=== PATIENT | male | born 1950 | race Caucasian/White ===

== ENCOUNTER → 2018-04-19 11:02 | Outpatient (CLI) | payer MEDICARE, SELFPAY ==
--- NOTE | 2018-04-19 11:13 | VDLE_ITS ---
Reason For Study: LEG SWELLING RIGHT LEFT GSV is normal. GSV is normal. CFV is compressible, spontaneous, phasic, CFV is compressible, spontaneous, phasic, competent and demonstrates normal competent, and demonstrates normal augmentation. augmentation. FV is compressible, spontaneous, phasic, FV is compressible, spontaneous, phasic, competent and demonstrates normal competent and demonstrates normal augmentation. augmentation. POP V is compressible, spontaneous, phasic, POP V is compressible, spontaneous, phasic, competent and demonstrates normal competent and demonstrates normal augmentation. augmentation. T/P Trunk is compressible. T/P Trunk is compressible. PTV is compressible. PTV is compressible. RT PerV is compressible. LT PerV is compressible. SFJ is INCOMPETENT SFJ is INCOMPETENT GSV is INCOMPETENT with reflux greater GSV is INCOMPETENT with reflux greater than .5 sec and diameter of .30 x .31 cm than .5 sec and diameter of .47 x .44 cm SSV is competent SSV is INCOMPETENT with reflux greater INCOMPETENT fur remodeler 15 cm prox to medial than .5 sec and diameter of .52 x .58 cm malleolus. INCOMPETENT fur remodeler 21 cm prox to medial malleolus. Interpretation Summary Deep veins of the lower extremities are bilaterally patent and compressible segmentally. There is no evidence of deep vein thrombosis on either side. Valvular competence appears intact within the proximal deep venous systems bilaterally. The greater saphenous veins appear bilaterally patent and compressible segmentally. Sapheno-femoral junctions are bilaterally incompetent . Segmental valvular incompetence is noted within the greater saphenous veins bilaterally. The right small saphenous vein is patent and competent. The left small saphenous vein is patent and incompetent. An incompetent fur remodeler vein is noted in the right calf, located 15 centimeters proximal to the right medial malleolus. An incompetent fur remodeler vein is noted in the left calf, located 21 centimeters proximal to the left medial malleolus. Ordering Physician: NORMA LIZARRAGA Referring Physician: Norma Lizarraga Performed By: Marlen Foley RVT
== END ==
PROVIDERS: Family Provider Family Medicine; PCP Family Medicine; Visit Provider Nurse Practitioner
DX: I83.90 Asymptomatic varicose veins of unspecified lower extremity (principal); R60.0 Localized edema; L03.90 Cellulitis, unspecified; I73.9 Peripheral vascular disease, unspecified
CPT/HCPCS: 93970

== ENCOUNTER → 2019-02-03 21:26 | Outpatient (CLI) | payer MEDICARE, SELFPAY ==
[2019-02-03 17:08] VITALS: BMI 42.1
[2019-02-03 21:44] LABS: Absolute Lymphocyte Count 2.03 X10^3/ul (0.83-4.51); Absolute Neutrophil Count 4.3 X10^3/uL (2.0-7.7); Basophil# 0.04 X10^3/uL; Basophil% 0.6 % (0-1); Eosinophil# 0.17 X10^3/uL; Eosinophils% 2.4 % (0-5); Hematocrit 44.3 % (40-54); Hemoglobin 14.7 g/dl (13.0-16.5); Lymphocyte # 2.03 X10^3/ul (4.0); Lymphocyte % 28.6 % (19-41); Mean Corp Hgb Conc 33.2 g/gl (32-36); Mean Corpuscular Hgb 30.1 pg (27.0-32.0); Mean Corpuscular Volume 90.8 fL (80-94); Mean Platelet Vol. 11.9 fl (6.2-12.0); Monocyte# 0.51 X10^3/uL; Monocyte% 7.2 % (0-10); Neutrophil # 4.33 X10^3/uL (2.7-7.7); Neutrophil % 60.9 % (47-70); Platelet Count 157 K/mm3 (150-450); RBC Distribution Width CV 13.7 % (11.6-14.6); RBC Distribution Width SD 45.2 fl (35.1-43.9); Red Blood Count 4.88 M/mm3 (4.6-6.2); White Blood Count 7.1 K/mm3 (4.4-11.0)
[2019-02-03 21:45] LABS: POSITIVE COUNT NO; POSITIVE DIFFERENTIAL NO
[2019-02-03 21:46] LABS: POSITIVE MORPHOLOGY NO
[2019-02-03 22:09] LABS: ALB/GLOB Ratio 1.3 RATIO (0.9-2.4); AST(SGOT) 17 U/L (15-37); Alanine Aminotransfer ALT/SGPT 20 U/L (16-61); Albumin, Serum 4.1 g/dL (3.2-5.0); Alkaline Phosphatase 99 U/L (45-117); Anion Gap 6 (5-15); BUN 17 mg/dL (7-18); BUN/Creat Ratio 17.6 RATIO (10-20); Calcium,Total 8.9 mg/dL (8.5-10.1); Chloride 107 mmol/L (98-107); Cholesterol 179 mg/dL (200); Creatinine, Serum 0.96 mg/dL (0.70-1.30); EST Glomerular Filtration Rate 83 mL/min (>60); Est Glom Filt Rate - Afr Amer 100 mL/min (>60); Globulin 3.2 g/dL (2.2-4.2); Glucose 95 mg/dL (74-106); High Density Lipoprotein 43 mg/dL; PSA,Total - Annual Screen 4.07 ng/mL (0.00-4.00); Potassium 4.1 mmol/L (3.5-5.1); Protein, Total 7.3 g/dL (6.4-8.2); Sodium Level 139 mmol/L (136-145); Triglycerides 157 mg/dL; Very Low Density Lipoprotein 31 mg/dL (5-40)
== END ==
PROVIDERS: Family Provider Family Medicine; PCP Family Medicine; Referring Provider Nurse Practitioner; Visit Provider Nurse Practitioner
DX: I10 Essential (primary) hypertension (principal); M15.0 Primary generalized (osteo)arthritis; R35.0 Frequency of micturition; Z12.5 Encounter for screening for malignant neoplasm of prostate
CPT/HCPCS: 80053; 80061; 84153; 85025; G0103

== ENCOUNTER → 2020-02-21 22:08 | Outpatient (CLI) | payer MEDICARE, SELFPAY ==
[2020-02-21 18:33] VITALS: BMI 43.7
[2020-02-21 22:26] LABS: Absolute Lymphocyte Count 2.09 X10^3/uL (0.83-4.51); Absolute Neutrophil Count 5.1 X10^3/uL (2.0-7.7); Basophil# 0.05 X10^3/uL; Basophil% 0.6 % (0-1); Eosinophil# 0.17 X10^3/uL; Eosinophils% 2.2 % (0-5); Hematocrit 45.4 % (40-54); Hemoglobin 14.6 g/dL (13.0-16.5); Lymphocyte # 2.09 X10^3/ul (4.0); Mean Corp Hgb Conc 32.2 g/dL (32-36); Mean Corpuscular Hgb 30.9 pg (27.0-32.0); Mean Platelet Vol. 11.8 fl (6.2-12.0); Monocyte# 0.33 X10^3/uL; Monocyte% 4.3 % (0-10); NRBC Flagged by Analyzer 0 % (0-5); Neutrophil # 5.07 X10^3/uL (2.7-7.7); Neutrophil % 65.5 % (47-70); Platelet Count 170 K/mm3 (150-450); RBC Distribution Width CV 13.1 % (11.6-14.6); RBC Distribution Width SD 46.5 fl (35.1-43.9); Red Blood Count 4.73 M/mm3 (4.6-6.2); White Blood Count 7.7 K/mm3 (4.4-11.0)
[2020-02-21 22:46] LABS: ALB/GLOB Ratio 1.1 RATIO (0.9-2.4); AST(SGOT) 22 U/L (15-37); Alanine Aminotransfer ALT/SGPT 27 U/L (16-61); Alkaline Phosphatase 91 U/L (45-117); Anion Gap 6 (5-15); BUN 22 mg/dL (7-18); Calcium,Total 9.4 mg/dL (8.5-10.1); Chloride 108 mmol/L (98-107); Cholesterol 210 mg/dL (200); EST Glomerular Filtration Rate 79 mL/min (>60); Est Glom Filt Rate - Afr Amer 96 mL/min (>60); Globulin 3.7 g/dL (2.2-4.2); Glucose 117 mg/dL (74-106); High Density Lipoprotein 40 mg/dL; PSA,Total - Annual Screen 5.29 ng/mL (0.00-4.00); Potassium 3.8 mmol/L (3.5-5.1); Protein, Total 7.7 g/dL (6.4-8.2); Sodium Level 142 mmol/L (136-145); Triglycerides 253 mg/dL; Very Low Density Lipoprotein 51 mg/dL (5-40)
[2020-02-23 10:49] LABS: PSA, Free 0.61 ng/mL; PSA, Free % 11.5 % (.); PSA, Total Ultrasensitive 5.3 ng/mL (0.0-4.0)
== END ==
PROVIDERS: Visit Provider Nurse Practitioner
DX: R97.20 Elevated prostate specific antigen [PSA] (principal); I10 Essential (primary) hypertension; E78.5 Hyperlipidemia, unspecified; Z12.5 Encounter for screening for malignant neoplasm of prostate
CPT/HCPCS: 80053; 80061; 84153; 84154; 85025; G0103

== ENCOUNTER → 2020-03-08 | Outpatient (CLI) | payer MEDICARE, SELFPAY ==
[2020-03-08 17:40] VITALS: BMI 43.7
[2020-03-08 22:25] LABS: PSA,Total- Diagnostic 5.17 ng/mL (0.0-4.0)
== END | disposition home or self-care (01) ==
PROVIDERS: Referring Provider Nurse Practitioner; Visit Provider Nurse Practitioner
DX: R97.20 Elevated prostate specific antigen [PSA] (principal)
CPT/HCPCS: 84153

== ENCOUNTER → 2021-02-26 | Outpatient (CLI) | payer MEDICARE, SELFPAY ==
[2021-02-26 18:19] VITALS: BMI 42.8
[2021-02-26 21:40] LABS: Absolute Lymphocyte Count 2.12 X10^3/uL (0.83-4.51); Absolute Neutrophil Count 4.2 X10^3/uL (2.0-7.7); Basophil# 0.06 X10^3/uL; Basophil% 0.8 % (0-1); Eosinophils% 2.8 % (0-5); Hematocrit 44.3 % (40-54); Hemoglobin 14.6 g/dL (13.0-16.5); Lymphocyte # 2.12 X10^3/ul (0.83-4.51); Lymphocyte % 29.8 % (19-41); Mean Corpuscular Hgb 30.9 pg (27.0-32.0); Mean Corpuscular Volume 93.9 fL (80-94); Mean Platelet Vol. 11.9 fl (6.2-12.0); Monocyte# 0.47 X10^3/uL; Monocyte% 6.6 % (0-10); NRBC Flagged by Analyzer 0 % (0-5); Neutrophil # 4.24 X10^3/uL (2.7-7.7); Neutrophil % 59.6 % (47-70); Platelet Count 163 K/mm3 (150-450); RBC Distribution Width CV 13.1 % (11.6-14.6); RBC Distribution Width SD 45.1 fl (35.1-43.9); Red Blood Count 4.72 M/mm3 (4.6-6.2); White Blood Count 7.1 K/mm3 (4.4-11.0)
[2021-02-26 22:29] LABS: BUN 19 mg/dL (7-18); Glucose 116 mg/dL (74-106)
[2021-02-26 22:30] LABS: AST(SGOT) 21 U/L (15-37); Alanine Aminotransfer ALT/SGPT 23 U/L (16-61); Albumin, Serum 3.9 g/dL (3.2-5.0); Alkaline Phosphatase 95 U/L (45-117); Calcium,Total 9.4 mg/dL (8.5-10.1); Cholesterol 185 mg/dL (200); Globulin 3.8 g/dL (2.2-4.2); Potassium 3.5 mmol/L (3.5-5.1); Protein, Total 7.7 g/dL (6.4-8.2); Sodium Level 142 mmol/L (136-145); Triglycerides 162 mg/dL; Very Low Density Lipoprotein 32 mg/dL (5-40)
[2021-02-26 22:31] LABS: Anion Gap 7 (5-15); Chloride 106 mmol/L (98-107); High Density Lipoprotein 39 mg/dL; PSA,Total - Annual Screen 5.45 ng/mL (0.00-4.00)
[2021-02-26 22:47] LABS: Rheumatoid Factor < 10.0 IU/mL (<15)
[2021-02-28 18:43] LABS: ANTINUCLEAR ANTIBODIES DIRECT Negative (Negative)
[2021-03-05 22:27] LABS: BUN/Creat Ratio 19.7 RATIO (10-20); Creatinine, Serum 0.96 mg/dL (0.70-1.30); EST Glomerular Filtration Rate 82 mL/min (>60); Est Glom Filt Rate - Afr Amer 99 mL/min (>60)
== END | disposition home or self-care (01) ==
PROVIDERS: Referring Provider Nurse Practitioner; Visit Provider Nurse Practitioner
DX: I10 Essential (primary) hypertension (principal); R97.20 Elevated prostate specific antigen [PSA]; M15.0 Primary generalized (osteo)arthritis; M25.50 Pain in unspecified joint; Z12.5 Encounter for screening for malignant neoplasm of prostate
CPT/HCPCS: 80053; 80061; 84153; 85025; 86038; 86225; 86235; 86431; G0103

== ENCOUNTER → 2021-07-25 14:04 | Outpatient (CLI) | payer MEDICARE, SELFPAY | PROVIDERS: PCP Nurse Practitioner; Referring Provider Nurse Practitioner; Visit Provider Nurse Practitioner | DX: R50.9 Fever, unspecified (principal); R07.1 Chest pain on breathing | CPT/HCPCS: 87635; C9803; U0005; U0003 ==

== ENCOUNTER → 2022-03-03 | Outpatient (CLI) | payer MEDICARE, SELFPAY ==
[2022-03-03 22:54] LABS: Absolute Lymphocyte Count 0.91 X10^3/uL (0.83-4.51); Absolute Neutrophil Count 2.2 X10^3/uL (2.0-7.7); Basophil# 0.03 X10^3/uL; Basophil% 0.8 % (0-1); Eosinophils% 2.7 % (0-5); Hematocrit 44.8 % (40-54); Hemoglobin 14.6 g/dL (13.0-16.5); Lymphocyte # 0.91 X10^3/ul (0.83-4.51); Lymphocyte % 24.7 % (19-41); Mean Corp Hgb Conc 32.6 g/dL (32-36); Mean Corpuscular Hgb 30.7 pg (27.0-32.0); Mean Corpuscular Volume 94.3 fL (80-94); Mean Platelet Vol. 12.2 fl (6.2-12.0); Monocyte# 0.38 X10^3/uL; Monocyte% 10.3 % (0-10); NRBC Flagged by Analyzer 0 % (0-5); Neutrophil # 2.24 X10^3/uL (2.7-7.7); Neutrophil % 60.7 % (47-70); Platelet Count 127 K/mm3 (150-450); RBC Distribution Width CV 13.8 % (11.6-14.6); RBC Distribution Width SD 47.8 fl (35.1-43.9); Red Blood Count 4.75 M/mm3 (4.6-6.2); White Blood Count 3.7 K/mm3 (4.4-11.0)
[2022-03-03 23:13] LABS: ALB/GLOB Ratio 1.1 RATIO (0.9-2.4); AST(SGOT) 24 U/L (15-37); Alanine Aminotransfer ALT/SGPT 28 U/L (16-61); Albumin, Serum 3.9 g/dL (3.2-5.0); Alkaline Phosphatase 81 U/L (45-117); Anion Gap 4 (5-15); BUN 18 mg/dL (7-18); BUN/Creat Ratio 15.1 RATIO (10-20); Calcium,Total 8.9 mg/dL (8.5-10.1); Chloride 106 mmol/L (98-107); Cholesterol 153 mg/dL (200); Creatinine, Serum 1.19 mg/dL (0.70-1.30); EST Glomerular Filtration Rate 64 mL/min (>60); Est Glom Filt Rate - Afr Amer 78 mL/min (>60); Globulin 3.5 g/dL (2.2-4.2); Glucose 106 mg/dL (74-106); High Density Lipoprotein 35 mg/dL; PSA,Total- Diagnostic 5.69 ng/mL (0.0-4.0); Potassium 4.2 mmol/L (3.5-5.1); Protein, Total 7.4 g/dL (6.4-8.2); Sodium Level 140 mmol/L (136-145); Triglycerides 120 mg/dL; Very Low Density Lipoprotein 24 mg/dL (5-40)
== END | disposition home or self-care (01) ==
PROVIDERS: PCP Nurse Practitioner; Referring Provider Nurse Practitioner; Visit Provider Nurse Practitioner
DX: I10 Essential (primary) hypertension (principal); R97.20 Elevated prostate specific antigen [PSA]
CPT/HCPCS: 80053; 80061; 84153; 85025

== ENCOUNTER → 2023-03-06 | Outpatient (CLI) | payer MEDICARE, SELFPAY ==
[2023-03-06 20:39] LABS: Absolute Lymphocyte Count 0.52 X10^3/uL (0.83-4.51); Absolute Neutrophil Count 4.2 X10^3/uL (2.0-7.7); Basophil# 0.03 X10^3/uL; Basophil% 0.6 % (0-1); Eosinophils% 1.9 % (0-5); Hematocrit 40.9 % (40-54); Hemoglobin 13.3 g/dL (13.0-16.5); Lymphocyte # 0.52 X10^3/ul (0.83-4.51); Lymphocyte % 9.9 % (19-41); Mean Corp Hgb Conc 32.5 g/dL (32-36); Mean Corpuscular Volume 98.6 fL (80-94); Mean Platelet Vol. 11.3 fl (6.2-12.0); Monocyte# 0.33 X10^3/uL; Monocyte% 6.3 % (0-10); NRBC Flagged by Analyzer 0 % (0-5); Neutrophil # 4.23 X10^3/uL (2.7-7.7); Neutrophil % 80.5 % (47-70); POSITIVE DIFFERENTIAL YES; Platelet Count 155 K/mm3 (150-450); RBC Distribution Width CV 13.2 % (11.6-14.6); RBC Distribution Width SD 47.3 fl (35.1-43.9); Red Blood Count 4.15 M/mm3 (4.6-6.2); White Blood Count 5.3 K/mm3 (4.4-11.0)
[2023-03-06 20:45] LABS: Differential Indicated SCAN CRITERIA MET
[2023-03-06 21:01] LABS: AST(SGOT) 15 U/L (15-37); Alanine Aminotransfer ALT/SGPT 21 U/L (16-61); Albumin, Serum 3.8 g/dL (3.2-5.0); Alkaline Phosphatase 82 U/L (45-117); Anion Gap 4 (5-15); BUN 20 mg/dL (7-18); Calcium,Total 9.4 mg/dL (8.5-10.1); Chloride 107 mmol/L (98-107); Cholesterol 172 mg/dL (200); Creatinine, Serum 1.25 mg/dL (0.70-1.30); EST Glomerular Filtration Rate 61 mL/min (>60); Est Glom Filt Rate - Afr Amer 73 mL/min (>60); Globulin 3.7 g/dL (2.2-4.2); Glucose 88 mg/dL (74-106); High Density Lipoprotein 48 mg/dL; Potassium 3.9 mmol/L (3.5-5.1); Protein, Total 7.5 g/dL (6.4-8.2); Sodium Level 140 mmol/L (136-145); Thyroid Stim Hormone (TSH) 2.35 uIU/mL (0.358-3.74); Triglycerides 126 mg/dL; Very Low Density Lipoprotein 25 mg/dL (5-40)
[2023-03-06 21:10] LABS: Differential Comment SCANNED
[2023-03-06 21:14] LABS: Hemoglobin A1c 4.9 % (3.8-5.6)
== END | disposition home or self-care (01) ==
PROVIDERS: PCP Nurse Practitioner; Visit Provider Nurse Practitioner
DX: I10 Essential (primary) hypertension (principal); R60.0 Localized edema; M25.50 Pain in unspecified joint; R73.9 Hyperglycemia, unspecified
CPT/HCPCS: 80053; 80061; 83036; 84443; 85025

== ENCOUNTER → 2024-03-01 | Outpatient (CLI) | payer MEDICARE, SELFPAY ==
[2024-03-01 21:49] LABS: Absolute Lymphocyte Count 1.17 X10^3/uL (0.83-4.51); Absolute Neutrophil Count 3.5 X10^3/uL (2.0-7.7); Basophil# 0.04 X10^3/uL; Basophil% 0.8 % (0-1); Eosinophil# 0.08 X10^3/uL; Eosinophils% 1.5 % (0-5); Hematocrit 42.6 % (40-54); Hemoglobin 13.8 g/dL (13.0-16.5); Lymphocyte # 1.17 X10^3/ul (0.83-4.51); Lymphocyte % 22.6 % (19-41); Mean Corp Hgb Conc 32.4 g/dL (32-36); Mean Corpuscular Hgb 30.5 pg (27.0-32.0); Mean Platelet Vol. 11.8 fl (6.2-12.0); Monocyte# 0.35 X10^3/uL; Monocyte% 6.8 % (0-10); NRBC Flagged by Analyzer 0 % (0-5); Neutrophil # 3.52 X10^3/uL (2.7-7.7); Neutrophil % 68.1 % (47-70); Platelet Count 132 K/mm3 (150-450); RBC Distribution Width CV 13.4 % (11.6-14.6); RBC Distribution Width SD 46.3 fl (35.1-43.9); Red Blood Count 4.53 M/mm3 (4.6-6.2); White Blood Count 5.2 K/mm3 (4.4-11.0)
[2024-03-01 22:04] LABS: ALB/GLOB Ratio 1.2 RATIO (0.9-2.4); AST(SGOT) 17 U/L (15-37); Alanine Aminotransfer ALT/SGPT 22 U/L (16-61); Albumin, Serum 4.3 g/dL (3.2-5.0); Alkaline Phosphatase 120 U/L (45-117); Anion Gap 6 (5-15); BUN 22 mg/dL (7-18); BUN/Creat Ratio 20.4 RATIO (10-20); Calcium,Total 9.8 mg/dL (8.5-10.1); Chloride 105 mmol/L (98-107); Cholesterol 159 mg/dL (200); Creatinine, Serum 1.08 mg/dL (0.70-1.30); EST Glomerular Filtration Rate 71 mL/min (>60); Est Glom Filt Rate - Afr Amer 86 mL/min (>60); Globulin 3.5 g/dL (2.2-4.2); Glucose 92 mg/dL (74-106); High Density Lipoprotein 45 mg/dL; Potassium 3.8 mmol/L (3.5-5.1); Protein, Total 7.8 g/dL (6.4-8.2); Sodium Level 136 mmol/L (136-145); Triglycerides 74 mg/dL; Very Low Density Lipoprotein 15 mg/dL (5-40)
== END | disposition home or self-care (01) ==
PROVIDERS: PCP Nurse Practitioner; Visit Provider Nurse Practitioner
DX: I10 Essential (primary) hypertension (principal); M15.0 Primary generalized (osteo)arthritis
CPT/HCPCS: 80053; 80061; 85025

== ENCOUNTER → 2025-03-09 | Outpatient (CLI) | payer MEDICARE, SELFPAY ==
--- OUTSIDE RECORDS SUMMARY | 2025-03-09 21:44 | XMS RPT_ITS | CCD ---
Author Organization [facility] Care Team Providers Care Schedule Maker Name Role Phone Samson APPLIANCES SAMPLE MAKER.Norma LEWIS Primary Care Provide r Damian Nunn MD, Christy Unavailable [phone] Samson APPLIANCES SAMPLE MAKER.Norma LEWIS Primary Care Provide r Damian Nunn MD, Christy Unavailable Hussein Ordonez MD Unavailable Samson APPLIANCES SAMPLE MAKER.Corey LEWISa L Primary Care Provide r DAVIES, NORMA L Primary Care Unavailable VAZQUEZ PAGE Referring Unavailable HUSSEIN ORDONEZ Referring Unavailable DAVIES, NORMA L Primary Care Unavailable SAMSON, NORMA L Primary Care Unavailable HUSSEIN ORDONEZ Referring Unavailable DAVIES, NORMA L Primary Care Unavailable DAVIES, NORMA L Referring Unavailable VAZQUEZ PAGE Attending Unavailable DAVIES, NORMA L Primary Care Unavailable DAVIES, NORMA L Referring Unavailable Davies APPLIANCES SAMPLE MAKER.Corey LEWISa L Primary Care Provide r Damian Nunn MD, Christy Unavailable [phone] Hussein Ordonez MD Unavailable Samson APPLIANCES SAMPLE MAKER.DEBBIE Norma L Primary Care Provide r Rohini Aponte Unavailable Damian Nunn MD, Christy Unavailable Samson APPLIANCES SAMPLE MAKER.Corey LEWISa L Primary Care Provide r SAMSON, NORMA L Primary Care Unavailable SELWYN MICHELLE Attending Unavailable HUSSEIN ORDONEZ Referring Unavailable DAVIES, NORMA L Primary Care Unavailable SELWYN MICHELLE Attending Unavailable Davies SAWDUST DRIER, Norma Attending Unavailable Davies SAWDUST DRIER, Norma Primary Care Unavailable DAVIES, NORMA L Primary Care Unavailable SELWYN LEIVA Attending Unavailable DAVIES, NORMA L Primary Care Unavailable HUSSEIN ORDONEZ Attending Unavailable NATAN ALCAZAR Attending Unavailable DAVIES, NORMA L Primary Care Unavailable NATAN ALCAZAR Referring Unavailable DAVIES, NORMA L Primary Care Unavailable NATAN ALCAZAR Attending Unavailable DAVIES, NORMA L Primary Care Unavailable LEE WAYNE Attending Unavailable DAVIES, NORMA L Primary Care Unavailable DAVIES, NORMA L Primary Care Unavailable HUSSEIN ORDONEZ Attending Unavailable LEE WAYNE Attending Unavailable LEE WAYNE Referring Unavailable DAVIES, NORMA L Primary Care Unavailable LEE WAYNE Referring Unavailable DAVIES, NORMA L Primary Care Unavailable AFSANEH HANSEN Attending Unavailable LEE WAYNE Attending Unavailable DAVIES, NORMA L Primary Care Unavailable DAVIES, NORMA L Primary Care Unavailable NATAN ALCAZAR Attending Unavailable DAVIES, NORMA L Primary Care Unavailable LEE WAYNE Admitting Unavailable LEE WAYNE Attending Unavailable DAVIES, NORMA L Primary Care Unavailable PROVIDER, UNKNOWN Referring Unavailable PROVIDER, UNKNOWN Referring Unavailable DAVIES, NORMA L Primary Care Unavailable DAVIES, NORMA L Primary Care Unavailable PROVIDER, UNKNOWN Referring Unavailable DAVIES, NORMA L Primary Care Unavailable PROVIDER, UNKNOWN Referring Unavailable DAVIES, NORMA L Primary Care Unavailable PROVIDER, UNKNOWN Referring Unavailable DAVIES, NORMA L Primary Care Unavailable PROVIDER, UNKNOWN Referring Unavailable DAVIES, NORMA L Primary Care Unavailable PROVIDER, UNKNOWN Referring Unavailable PROVIDER, UNKNOWN Referring Unavailable DAVIES, NORMA L Primary Care Unavailable DAVIES, NORMA L Primary Care Unavailable PROVIDER, UNKNOWN Referring Unavailable DAVIES, NORMA L Primary Care Unavailable PROVIDER, UNKNOWN Referring Unavailable DAVIES, NORMA L Primary Care Unavailable PROVIDER, UNKNOWN Referring Unavailable DAVIES, NORMA L Primary Care Unavailable DAVIES, NORMA L Primary Care Unavailable PROVIDER, UNKNOWN Referring Unavailable DAVIES, NORMA L Primary Care Unavailable PROVIDER, UNKNOWN Referring Unavailable DAVIES, NORMA L Primary Care Unavailable PROVIDER, UNKNOWN Referring Unavailable DAVIES, NORMA L Primary Care Unavailable PROVIDER, UNKNOWN Referring Unavailable DAVIES, NORMA L Primary Care Unavailable PROVIDER, UNKNOWN Referring Unavailable DAVIES, NORMA L Primary Care Unavailable PROVIDER, UNKNOWN Referring Unavailable DAVIES, NORMA L Primary Care Unavailable PROVIDER, UNKNOWN Referring Unavailable DAVIES, NORMA L Primary Care Unavailable PROVIDER, UNKNOWN Referring Unavailable DAVIES, NORMA L Primary Care Unavailable PROVIDER, UNKNOWN Referring Unavailable DAVIES, NORMA L Primary Care Unavailable PROVIDER, UNKNOWN Referring Unavailable DAVIES, NORMA L Primary Care Unavailable PROVIDER, UNKNOWN Referring Unavailable DAVIES, NORMA L Primary Care Unavailable DAVIES, NORMA L Primary Care Unavailable PROVIDER, UNKNOWN Referring Unavailable DAVIES, NORMA L Primary Care Unavailable PROVIDER, UNKNOWN Referring Unavailable DAVIES, NORMA L Primary Care Unavailable PROVIDER, UNKNOWN Referring Unavailable DAVIES, NORMA L Primary Care Unavailable PROVIDER, UNKNOWN Referring Unavailable DAVIES, NORMA L Primary Care Unavailable PROVIDER, UNKNOWN Referring Unavailable DAVIES, NORMA L Primary Care Unavailable PROVIDER, UNKNOWN Referring Unavailable DAVIES, NORMA L Primary Care Unavailable PROVIDER, UNKNOWN Referring Unavailable DAVIES, NORMA L Primary Care Unavailable PROVIDER, UNKNOWN Referring Unavailable DAVIES, NORMA L Primary Care Unavailable PROVIDER, UNKNOWN Referring Unavailable DAVIES, NORMA L Primary Care Unavailable PROVIDER, UNKNOWN Referring Unavailable DAVIES, NORMA L Primary Care Unavailable PROVIDER, UNKNOWN Referring Unavailable DAVIES, NORMA L Primary Care Unavailable PROVIDER, UNKNOWN Referring Unavailable DAVIES, NORMA L Primary Care Unavailable PROVIDER, UNKNOWN Referring Unavailable DAVIES, NORMA L Primary Care Unavailable PROVIDER, UNKNOWN Referring Unavailable DAVIES, NORMA L Primary Care Unavailable PROVIDER, UNKNOWN Referring Unavailable DAVIES, NORMA L Primary Care Unavailable PROVIDER, UNKNOWN Referring Unavailable DAVIES, NORMA L Primary Care Unavailable PROVIDER, UNKNOWN Referring Unavailable DAVIES, NORMA L Primary Care Unavailable PROVIDER, UNKNOWN Referring Unavailable PROVIDER, UNKNOWN Referring Unavailable DAVIES, NORMA L Primary Care Unavailable DAVIES, NORMA L Primary Care Unavailable PROVIDER, UNKNOWN Referring Unavailable DAVIES, NORMA L Primary Care Unavailable PROVIDER, UNKNOWN Referring Unavailable Allergies Allergy Classification Reported Allergen(s) Allergy Type Date of Onset Reaction(s) Facility (19 sources) Amoxicillin; Translations: [AMOXICILLIN] Drug Allergy 01-12-2023 Rash, Shortness of Breath [facility] Work Phone: Medications Current Medications Medication Drug Class(es) Dates Sig (Normalized) Sig (Original) acetaminophen 325 mg oral tablet (20 sources) acetaminophen (TYLENOL) 325 mg tablet Take 650 mg by mouth as needed. Active Comment on above: Take 650 mg by mouth as needed. [id number] 200 actuat albuterol 0.09 mg/actuat metered dose inhaler (20 sources) beta2-Adrenergic Agonist Start: 03-03-2022 take 1 puff(s) by inhalation every four hours Albuterol Sulfate (Proair Hfa) 90 mcg/actuation HFA aerosol inhaler Active 2 PUFF INHALATION Q4H 20.1 90 March 03, 2022 3:41pm Start: 02-21-2020 End: 03-03-2022 take 1 puff(s) by inhalation every four hours Albuterol Sulfate (Proair Hfa) 90 mcg/actuation HFA aerosol inhaler Discontinued 2 PUFF INHALATION Q4H 20.1 90 February 26, 2021 6:25pm March 03, 2022 3:42pm Start: 02-03-2019 End: 01-29-2020 take 1 puff(s) by inhalation every four hours Albuterol Sulfate (Proair Hfa) 90 mcg/actuation HFA aerosol inhaler Discontinued 2 PUFF INHALATION Q4H 24 90 February 03, 2019 5:13pm January 29, 2020 12:02am ALBUTEROL INHALA TION Inhale 1 Inhalation as instructed as needed. hot humid weather Active ALBUTEROL INHALA TION Inhale 1 Inhalation as instructed as needed. hot humid weather 0 Active Comment on above: Inhale 1 Inhalation as instructed as needed. hot humid weather albuterol 0.833 mg/ml / ipratropium bromide 0.167 mg/ml inhalation solution (20 sources) Anticholinergic, beta2-Adrenergic Agonist Start: 09-25-20 take 3 mL by inhalation four times daily ipratropium-albuter ol (DUONEB) 0.5 mg-3 mg(2.5 mg base)/3 mL nebu Indications: COVID , RSV infection , Acute cough Inhale 3 mL as instructed four times daily. 25 Each 2 09/25/2023 Active Comment on above: Inhale 3 mL as instr ucted four times daily. amoxicillin 500 mg oral capsule (12 sources) Penicillin-class Antibacterial Start: 12-12-19 End: 12-22-19 take 1 capsule by mouth every eight hours amoxicillin (AMOXIL) 500 mg capsule Take 1 capsule by mouth every 8 hours for 10 days. 30 capsule 0 12/11/2022 12/21/2022 Active Start: 10-05-2018 End: 06-19-2022 amoxicillin (POLYMOX, AMOXIL ) 500 mg capsule Indications: Status post total right knee replacement Take four capsules one hour before dental procedure. 4 capsule 3 10/05/2018 06/19/2022 Discontinued Comment on above: Take four capsules o ne hour before dental procedure. Take [address] [facility] every 8 hours for 10 days. amoxicillin 875 mg / clavulanate 125 mg oral tablet (2 sources) Penicillin-class Antibacterial Start: 2 End: 3 take 1 tablet by mouth twice daily Amoxicillin-Pot Clavulanate Active 1 TABLET PO TWICE A DAY March 03, 2022 3:45pm BIPAP (20 sources) Start: BIPAP ASV Adaptive Servo-Ventilation (ASV) with end-expiratory pressure (EEP) of 9 cmH2O and variable pressure support of 3-10 cmH2O. mask (pt pref), chin strap, heated tubing & humidity, filters. Lifetime supplies. APRIL: G47.33. 1 Device 11/26/2020 Active Start: 11-26-2020 BIPAP ASV Adap tive Servo-Ventilation (ASV) with end- expiratory pressure (EEP) of 9 cmH2O and variable pressure support of 3-10 cmH2O. mask (pt pref), chin strap, heated tubing & humidity, filters. Lifetime supplies. APRIL: G47.33. 1 Device 0 11/26/2020 Active Start: 07-01-2007 BIPAP Indicati ons: Obstructive sleep apnea (adult) (pediatric) Please supply patient with Full face mask, Santana Milton VIP [phone]. 1 0 07/01/2007 Active Comment on above: Please supply patien t with Full face mask, Santana Keller VIP [phone]. ASV Adaptive Servo-V entilation (ASV) with end-expiratory pressure (EEP) of 9 cmH2O and variable pressure support of 3-10 cmH2O. mask (pt pref), chin strap, heated tubing & humidity, filters. Lifetime supplies. APRIL: G47.33. Fluticasone Propion-Salmeterol (4 sources) Corticosteroid, beta2-Adrenergic Agonist Start: 07-26-2021 Fluticasone Propion-Salmeterol (Advair Diskus) 250-50 mcg/dose blister with device Active 1 INH INHALATION TWICE A DAY July 26, 2021 11:40am Start: 07-26-2021 Fluticasone Pr opion-Salmeterol (Advair Diskus) 250-50 mcg/dose blister with device Active 1 INH INHALATION TWICE A DAY July 26, 2021 12:00am Start: 02-03-2019 End: 01-29-2020 Fluticasone Propion-Salmeter ol Discontinued 1 INH INHALATION TWICE A DAY 180 90 February 03, 2019 5:13pm January 29, 2020 12:02am Start: 02-03-2019 End: 01-29-2020 Fluticasone Propion-Salmeter ol Discontinued 1 INH INHALATION TWICE A DAY 180 90 February 03, 2019 12:00am January 29, 2020 12:02am furosemide 20 mg oral tablet (20 sources) Loop Diuretic Start: 12-14-2022 take 1 tablet by mouth once daily furosemide (LASIX) 20 mg tablet Take 1 tablet by mouth once daily. 5 tablet 12/14/2022 Active Start: 10-11-2021 End: 12-15-2022 take 40 mg by mouth once daily Furosemide Active 40 MG PO DAILY December 15, 2022 6:33pm Comment on above: Take 1 tablet by chelsey th once daily. gabapentin 100 mg oral capsule (20 sources) Anti-epileptic Agent Start: 07-05-20 End: 07-15-20 24 take 1 capsule by mouth three times daily gabapentin (NEURONTIN) 100 mg capsule Take 1 capsule by mouth three times a day for 10 days. 30 capsule 07/05/2024 Active hydroCHLOROthiazide 12.5 mg / lisinopril 20 mg oral tablet (20 sources) Thiazide Diuretic, Angiotensin Converting Enzyme Inhibitor Start: 02-04-20 End: 03-06-20 take 1 tablet by mouth once daily Lisinopril-Hydroc hlorothiazide Active 1 TABLET PO daily March 06, 2023 6:09pm Start: 12-13-2014 take 1 tablet by chelsey th once daily lisinopril-hydrochlorothiazide (PRINZIDE,ZESTORETIC) 20-12.5 mg per tablet Take 1 tablet by mouth once daily. 12/13/2014 Active Comment on above: Take 1 tablet by chelsey th once daily. hydroxychloroquine sulfate 200 mg oral tablet (20 sources) Antimalarial, Antirheumatic Agent Start: 2023 take 1 tablet by mouth once daily hydrOXYchloroQUINE (PLAQUENIL) 200 mg tablet Take 1 tablet by mouth once daily. 90 tablet 3 02/02/2024 Active Start: 02-26-2021 End: 03-06-2023 take 200 mg by mouth twice daily Hydroxychloroquine Active 200 MG PO TWICE A DAY 120 March 06, 2023 12:00am iv contrast (will be provide d with radiology test) (20 sources) Start: 12-17-2023 End: 12-18-2023 iv contrast (will be provide d with radiology test) MRI Pelvis Inject, intravenously, once for 1 dose. No IV access, insert saline lock prior to the beginning of sedation, infusion, injection of imaging exam. Discontinue saline lock post exam. If Pt has a central line or IVAD, may access for administration according to line specific nursing protocol. Once exam is complete flush line and de-access according to line specific nursing protocol in the MR contrast administration guidelines link. 1 Each 0 12/17/2023 12/18/2023 Active Start: 06-19-2022 iv contrast (w ill be provided with radiology test) MRI Prostate Inject, intravenously, once for 1 dose. No IV access, insert saline lock prior to the beginning of sedation, infusion, injection of imaging exam. Discontinue saline lock post exam. If Pt. has a central line or IVAD, may access for administration according to line specific nursing protocol. Once exam is complete flush line and de-access according to line specific nursing protocol in the MR contrast administration guidelines link. 1 Each 06/19/2022 Active Start: 06-19-2022 iv contrast (w ill be provided with radiology test) MRI Prostate Inject, intravenously, once for 1 dose. No IV access, insert saline lock prior to the beginning of sedation, infusion, injection of imaging exam. Discontinue saline lock post exam. If Pt. has a central line or IVAD, may access for administration according to line specific nursing protocol. Once exam is complete flush line and de-access according to line specific nursing protocol in the MR contrast administration guidelines link. 1 Each 0 06/19/2022 Active Start: 05-19-2022 End: 05-20-2022 iv contrast (will be provide d with radiology test) CT PELVIS W -Inject, intravenously, once for 1 dose.No IV access, insert saline lock prior to the beginning of sedation, infusion, injection of imaging exam. Discontinue saline lock post exam. If Pt. has a central line or IVAD, may access for administration according to line specific nursing protocol. Once exam is complete flush line and de-access according to line specific nursing protocol in the CT contrast administration guidelines link. 1 Each 0 05/19/2022 05/20/2022 Active Comment on above: CT PELVIS W -Inject, intravenously, once for 1 dose.No IV access, insert saline lock prior to the beginning of sedation, infusion, injection of imaging exam. Discontinue saline lock post exam. If Pt. has a central line or IVAD, may access for administration according to line specific nursing protocol. Once exam is complete flush line and de-access according to line specific nursing protocol in the CT contrast administration guidelines link. MRI Prostate Inject, intravenously, once for 1 dose. No IV access, insert saline lock prior to the beginning of sedation, infusion, injection of imaging exam. Discontinue saline lock post exam. If Pt. has a central line or IVAD, may access for administration according to line specific nursing protocol. Once exam is complete flush line and de-access according to line specific nursing protocol in the MR contrast administration guidelines link. MRI Pelvis Inject, i ntravenously, once for 1 dose. No IV access, insert saline lock prior to the beginning of sedation, infusion, injection of imaging exam. Discontinue saline lock post exam. If Pt has a central line or IVAD, may access for administration according to line specific nursing protocol. Once exam is complete flush line and de-access according to line specific nursing protocol in the MR contrast administration guidelines link. loperamide hydrochloride 0.133 mg/ml oral suspension (20 sources) Opioid Agonist Start: 12-15-2022 Loperamide (Imodium A-D) 1 mg/7.5 mL liquid Active 2 MG PO every 1 to 4 hours December 15, 2022 12:00am On Hold: Ordered administer after each loose stool until symptoms controlled; do not exceed 16 mg per 24 hrs End: 09-25-2023 loperamide HCl (IMODIUM A-D ORAL) Take by mouth. 09/25/2023 Discontinued (.All criteria met for discontinuation) loperamide HCl ( IMODIUM A-D ORAL) Take by mouth. 0 Active Comment on above: Take by mouth. modafinil 200 mg oral tablet (20 sources) Sympathomimetic-l jodee Agent Start: 02-03-2019 End: 12-15-2022 take 200 mg by mouth twice daily Modafinil Active 200 MG PO TWICE A DAY 60 December 15, 2022 6:34pm Start: 09-14-2007 modafinil(PROV IGIL 200 MG TAB) Take one(1) tablet daily in the morning. 90 1 09/14/2007 Active Comment on above: Take one(1) tablet d aily in the morning. mupirocin 0.02 mg/mg topical ointment (1 source) RNA Synthetase Inhibitor Antibacterial Start: Mupirocin Active 1 APPLIC TOPICAL THREE TIMES A DAY December 15, 2022 12:00am omega-3 fatty acids/fish oil (OMEGA 3 FISH OIL ORAL) (4 sources) omega-3 fatty acids/fish oil (OMEGA 3 FISH OIL ORAL) Take by mouth once daily. Active oxyCODONE hydrochloride 5 mg oral tablet (9 sources) Opioid Agonist Start: End: take 1 tablet by mouth every four hours as needed for pain oxyCODONE IR (ROXICODONE) 5 mg immediate release tablet Indications: Status post total right knee replacement , Acute postoperative pain of right knee Take 1 tablet by mouth every 4 hours as needed for Pain (post op acute pain) for up to 7 days. Earliest Fill Date: 07/29/18 42 tablet 0 07/29/2018 06/19/2022 Discontinued Comment on above: Take 1 tablet by chelsey every 4 hours as needed for Pain (post op acute pain) for up to 7 days. Earliest Fill Date: 07/29/18 pantoprazole 40 mg delayed release oral tablet (20 sources) Proton Pump Inhibitor Start: End: take 1 tablet by mouth once daily pantoprazole (PROTONIX) 40 mg ORAL TbEC Take one(1) tablet daily. 0 07/01/2007 Active Comment on above: Take one(1) tablet d aily. 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 30 tablet 0 08/27/2018 06/19/2022 Discontinued Comment on above: Take 1 tablet by chelsey once daily. tamsulosin hydrochloride 0.4 mg oral capsule (20 sources) alpha-Adrenergic Elier Start: 025 take 1-2 tablets by mouth once daily tamsulosin (FLOMAX) 0.4 mg By mouth, take 1-2 tablets daily (to aid in urination flow) 180 capsule 3 12/23/2024 Active Start: 03-06-2023 take 0.4 mg by mouth once jonathon y Tamsulosin Active 0.4 MG PO DAILY March 06, 2023 12:00am Start: 10-23-2022 End: 12-23-2024 take 2 capsules by mouth once daily 30 minutes after mealtime tamsulosin (FLOMAX) 0.4 mg TAKE 2 CAPSULES BY MOUTH EVERY DAY 30 MINUTES AFTER A MEAL 180 capsule 3 04/29/2024 12/23/2024 Discontinued Start: 03-04-2022 End: 08-13-2022 take 1 capsule by mouth once daily 30 minutes after mealtime tamsulosin (FLOMAX) 0.4 mg Take 1 capsule by mouth once daily. 30 minutes after meal 30 capsule 2 07/14/2022 Active Start: 10-10-2021 End: 02-28-2022 take 1 capsule by mouth once daily 30 minutes after mealtime tamsulosin (FLOMAX) 0.4 mg Take 1 capsule by mouth once daily. 30 minutes after meal 30 capsule 2 10/10/2021 02/28/2022 Discontinued Comment on above: Take 1 capsule by mo uth once daily. 30 minutes after meal TAKE 2 CAPSULES BY M OUTH ONCE DAILY 30 MINUTES AFTER A MEAL Take 2 capsules by m outh once daily. 30 minutes after meal V-PAP MACHINE (2 sources) Start: 05-18-2018 V-PAP MACHINE Active May 18, 2018 2:31pm Patient should be able to order own supplies for mask tubing and straps Start: 05-18-2018 V-PAP MACHINE Active May 18, 2018 12:00am Patient should be able to order own supplies for mask tubing and straps Completed/Discontinued Medications Medication Drug Class(es) Dates Sig (Normalized) Sig (Original) azithromycin 250 mg oral tablet (2 sources) Macrolide Antimicrobial Start: 11-07-2019 End: 11-12-2019 Azithromycin Discontinued 250 MG PO daily 6 5 November 07, 2019 10:00pm November 12, 2019 1:09am 2 po qd for 1 day then 1 po qd for 4 days with food or after eating betamethasone 3 mg/ml / betamethasone acetate 3 mg/ml injectable suspension (5 sources) Corticosteroid Start: 03-03-2025 End: 03-03-2025 betamethasone acetate-betamethas one sodium phosphate 12 mg injection (CELESTONE) Start: 03-03-2025 End: 03-03-2025 12 mg, Injection - FOR ORTHO USE ONLY, ONCE, 1 dose, Starting on Thu03/03/25 at 0839, Until Thu03/03/25 at 0839 Start: 02-05-2023 End: 02-05-2023 betamethasone acetate-betame thasone sodium phosphate 3 mg injection (CELESTONE) Start: 01-30-2023 End: 01-30-2023 betamethasone acetate-betame thasone sodium phosphate 12 mg injection (CELESTONE) Start: 12-24-2021 End: 12-24-2021 betamethasone acetate-betame thasone sodium phosphate 12 mg injection (CELESTONE) celecoxib 200 mg oral capsule (20 sources) Nonsteroidal Anti-inflammatory Drug Start: 03-03-2022 End: 12-17-2023 take 1 capsule by mouth twice daily celecoxib (CELEBREX) 200 mg capsule Take 200 mg by mouth twice daily. 05/23/2022 12/17/2023 Discontinued Start: 02-26-2021 End: 10-11-2021 take 200 mg by mouth twice daily Celecoxib Discontinued 200 MG PO TWICE A DAY 180 February 26, 2021 6:23pm October 11, 2021 7:47pm take [address] [facility] once daily celecoxib (CELEBREX) 200 mg capsule Take 200 mg by mouth once daily. Active Comment on above: Take 200 mg by mouth twice daily. dicloxacillin 500 mg oral capsule (1 source) Penicillin-class Antibacterial Start: 12-11-19 End: 12-12-19 23 take 1 capsule by mouth four times daily dicloxacillin (DYNAPEN) 500 mg capsule Take 1 capsule by mouth four times daily for 10 days. 40 capsule 0 12/10/2022 12/11/2022 Discontinued Comment on above: Take [address] [facility] four times daily for 10 days. doxycycline hyclate 100 mg oral capsule (6 sources) Tetracycline-class Drug Start: 07-25-20 End: 10-11-19 take 100 mg by mouth twice daily Doxycycline Hyclate Discontinued 100 MG PO TWICE A DAY July 25, 2021 6:56pm October 11, 2021 7:47pm Start: 11-17-2019 End: 11-22-2019 take 100 mg by mouth twice daily Doxycycline Hyclate Discontinued 100 MG PO TWICE A DAY 10 November 17, 2019 6:10pm November 22, 2019 1:08am Start: 07-04-2019 End: 11-07-2019 take 100 mg by mouth twice daily Doxycycline Hyclate Discontinued 100 MG PO TWICE A DAY July 04, 2019 5:06pm November 07, 2019 9:58pm 10 ml lidocaine hydrochloride 10 mg/ml injection (9 sources) Antiarrhythmic, Amide Local Anesthetic Start: 03-03-2025 End: 03-03-2025 lidocaine (PF) 10 mg/mL (1 %) 3 mL injection (XYLOCAINE) Start: 03-03-2025 End: 03-03-2025 3 mL, Injection - FOR ORTHO USE ONLY, ONCE, 1 dose, Starting on Thu03/03/25 at 0839, Until Thu03/03/25 at 0839 Start: 08-16-2024 End: 08-16-2024 lidocaine (PF) 10 mg/mL (1 % ) 0.5 mL injection (XYLOCAINE) Start: 08-16-2024 End: 08-16-2024 0.5 mL, Injection - FOR ORTH O USE ONLY, ONCE, 1 dose, Starting on Thu08/16/24 at 1625, Until Thu08/16/24 at 1625 Start: 02-19-2024 End: 02-19-2024 lidocaine urojet 2 % 11 mL t opical gel (GLYDO) Start: 02-05-2023 End: 02-05-2023 lidocaine (PF) 10 mg/mL (1 % ) 0.5 mL injection (XYLOCAINE) Start: 01-30-2023 End: 01-30-2023 lidocaine (PF) 10 mg/mL (1 % ) 3 mL injection (XYLOCAINE) Start: 12-24-2021 End: 12-24-2021 lidocaine (PF) 10 mg/mL (1 % ) 3 mL injection (XYLOCAINE) meloxicam 15 mg oral tablet (4 sources) Nonsteroidal Anti-inflammatory Drug Start: 02-03-2019 End: 02-26-2021 take 15 mg by mouth once daily Meloxicam Discontinued 15 MG PO daily February 21, 2020 6:39pm February 26, 2021 6:24pm methylPREDNISolone (18 sources) Corticosteroid Start: 04-10-2023 methylPREDNISolone (MEDROL, JOSE MANUEL,) 4 mg Dose-Pack Indications: Lumbago-sciatica due to displacement of lumbar intervertebral disc As Instructed per package 21 tablet 0 04/10/2023 Active Start: 01-12-2023 End: 01-18-2023 methylPREDNISolone (MEDROL, JOSE MANUEL,) 4 mg Dose-Pack As instructed per package 21 tablet 0 01/12/2023 01/18/2023 Active Start: 07-25-2021 End: 07-25-2021 inject 125 mg by intramuscular injection once methylprednisolone sod suc(PF) 125 mg/2 mL solution for injection Discontinued 125 MG IM ONCE 1 July 25, 2021 6:28pm July 25, 2021 6:28pm Start: 02-05-2021 End: 06-19-2022 methylPREDNISolone (MEDROL, JOSE MANUEL,) 4 mg Dose-Pack Indications: DDD (degenerative disc disease), lumbar As Instructed per package 1 Package 0 02/05/2021 06/19/2022 Discontinued Start: 02-05-2021 methylPREDNISo lone (MEDROL, JOSE MANUEL,) 4 mg Dose-Pack Indications: DDD (degenerative disc disease), lumbar As Instructed per package 1 Package 0 02/05/2021 Active Comment on above: As Instructed per rachel abreu oseltamivir 75 mg oral capsule (2 sources) Neuraminidase Inhibitor Start: 0 End: take 75 mg by mouth twice daily Oseltamivir Discontinued 75 MG PO TWICE A DAY 10 November 07, 2019 10:00pm November 12, 2019 1:09am predniSONE 20 mg oral tablet (7 sources) Start: 3 End: take 40 mg by mouth once daily Prednisone Discontinued 40 MG PO DAILY December 15, 2022 12:00am March 06, 2023 6:08pm Start: 07-25-2021 End: 10-11-2021 take 40 mg by mouth once daily Prednisone Discontinued 40 MG PO DAILY July 25, 2021 6:57pm October 11, 2021 7:46pm Start: 11-07-2019 End: 11-17-2019 take 40 mg by mouth once daily Prednisone Discontinued 40 MG PO DAILY 17 07November 07, 2019 10:00pm November 17, 2019 1:08am Start: 07-04-2019 End: 07-14-2019 take 40 mg by mouth once daily Prednisone Discontinued 40 MG PO DAILY 17 07July 04, 2019 5:07pm July 14, 2019 12:07am 20 ml ropivacaine hydrochloride 5 mg/ml injection (4 sources) Amide Local Anesthetic Start: 03-02-2025 End: 03-02-2025 ROPivacaine (PF) 5 mg/mL (0.5 %) 0.5 mL injection (NAROPIN) Start: 03-02-2025 End: 03-02-2025 0.5 mL, Injection - FOR ORTH O USE ONLY, ONCE, 1 dose, Starting on Yvonne 03/02/25 at 0849, Until Yvonne 03/02/25 at 0849 Start: 08-02-2024 End: 08-02-2024 ROPivacaine (PF) 5 mg/mL (0. 5 %) 0.5 mL injection (NAROPIN) Start: 08-02-2024 End: 08-02-2024 0.5 mL, Injection - FOR ORTH O USE ONLY, ONCE, 1 dose, Starting on Thu08/02/24 at 1000, Until Thu08/02/24 at 1000 sulfamethoxazole 800 mg / trimethoprim 160 mg oral tablet (6 sources) Dihydrofolate Reductase Inhibitor Antibacterial, Sulfonamide Antimicrobial Start: 02-19-2024 End: 02-19-2024 sulfamethoxazole-trimethopri m 800-160 mg 1 tablet (BACTRIM DS) Start: 03-06-2021 End: 10-11-2021 take 1 tablet by mouth twice daily Sulfamethoxazole-Trimethoprim Discontinu ed 1 TABLET PO TWICE A DAY 60 March 06, 2021 4:59pm October 11, 2021 7:46pm Start: 02-22-2020 End: 03-03-2020 take 1 tablet by mouth twice daily Sulfamethoxazole-Trimethoprim Discontinu ed 1 TABLET PO TWICE A DAY 17 07February 22, 2020 1:36pm March 03, 2020 12:02am 1 ml triamcinolone acetonide 40 mg/ml injection (6 sources) Corticosteroid Start: 03-02-2025 End: 03-02-2025 triamcinolone acetonide 40 mg injection (KeNALog 40) Start: 03-02-2025 End: 03-02-2025 40 mg, Injection - FOR ORTHO USE ONLY, ONCE, 1 dose, Starting on Yvonne 03/02/25 at 0849, Until Yvonne 03/02/25 at 0849 Start: 08-16-2024 End: 08-16-2024 triamcinolone acetonide 40 m g injection (KeNALog 40) Start: 08-16-2024 End: 08-16-2024 40 mg, Injection - FOR ORTHO USE ONLY, ONCE, 1 dose, Starting on 08/16/24 at 1625, Until 08/16/24 at 1625 Start: 08-02-2024 End: 08-02-2024 triamcinolone acetonide 40 m g injection (KeNALog 40) Start: 08-02-2024 End: 08-02-2024 40 mg, Injection - FOR ORTHO USE ONLY, ONCE, 1 dose, Starting on 08/02/24 at 1000, Until 08/02/24 at 1000 V-PAP Machine (4 sources) Start: 05-18-2018 End: 05-18-2018 V-PAP Machine Discontinued May 18, 2018 2:29pm May 18, 2018 2:32pm As directed Start: 05-18-2018 End: 05-18-2018 V-PAP Machine Discontinued May 18, 2018 2:23pm May 18, 2018 2:30pm As directed Start: 05-18-2018 End: 05-18-2018 V-PAP Machine Discontinued May 18, 2018 12:00am May 18, 2018 2:30pm As directed Problems Active Problems Problem Classification Problem Date Documented Da te Episodic/Chronic Asthma (2 sources) Asthmatic bronchitis; Translations: [Unspecified asthma, uncomplicated] 07-25-2021 Chronic Cancer of prostate (20 sources) Malignant tumor of prostate; Translations: [Malignant neoplasm of prostate] Onset: 2 Chronic Cancer of prostate (2 sources) Personal history of malignant neoplasm of prostate; Translations: [History of prostate cancer] Onset: 4 Episodic Cataract (20 sources) Nuclear senile cataract; Translations: [Age-related nuclear cataract, unspecified eye] Onset: 6 04-03-2016 Chronic Chronic obstructive pulmonary disease and bronchiectasis (2 sources) Bronchitis; Translations: [Bronchitis, not specified as acute or chronic] 07-04-2019 Episodic Diabetes mellitus without complication (1 source) Hyperglycemia; Translations: [Hyperglycemia, unspecified] 03-06-2023 Episodic E Codes: Adverse effects of medical drugs (1 source) Adverse reaction to drug; Translations: [Adverse effect of unspecified drugs, medicaments and biological substances, initial encounter] 12-15-2022 Episodic Esophageal disorders (20 sources) Gastroesophageal reflux disease without esophagitis; Translations: [Gastro-esophageal reflux disease without esophagitis] Onset: 6 11-14-2015 Chronic Essential hypertension (20 sources) Essential hypertension; Translations: [Essential (primary) hypertension] Onset: 6 11-14-2015 Chronic Genitourinary symptoms and ill-defined conditions (3 sources) Feeling of incomplete bladder emptying; Translations: [Dysuria] Onset: 2 01-12-2024 Episodic Hyperplasia of prostate (6 sources) Benign prostatic hypertrophy with outflow obstruction; Translations: [Benign prostatic hyperplasia with lower urinary tract symptoms] Onset: 2 Chronic Influenza (2 sources) Influenza; Translations: [Influenza due to unidentified influenza virus with other respiratory manifestations] 11-08-2019 Episodic Osteoarthritis (20 sources) Osteoarthritis of left knee joint; Translations: [Unilateral primary osteoarthritis, left knee] Onset: 5 Resolved: 8 Chronic Other aftercare (2 sources) Drug therapy finding; Translations: [Encounter for therapeutic drug level monitoring] Episodic Other aftercare (4 sources) History of malignant neoplasm of prostate; Translations: [Encounter for follow-up examination after completed treatment for malignant neoplasm] 06-15-2023 Episodic Other aftercare (2 sources) Patient encounter status; Translations: [MCC (current) use of non-steroidal anti-inflammatories (NSAID)] 12-14-2023 Episodic Other aftercare (1 source) Encounter for follow-up examination after completed treatment for malignant neoplasm; Translations: [Encounter for follow-up surveillance of prostate cancer] Onset: 5 Episodic Other connective tissue disease (20 sources) History of total knee arthroplasty; Translations: [Presence of unspecified artificial knee joint] Onset: 8 07-01-2018 Chronic Other connective tissue disease (1 source) Presence of right artificial knee joint; Translations: [Status post total right knee replacement] Onset: 8 Chronic Other connective tissue disease (2 sources) Swelling of hand; Translations: [Other specified soft tissue disorders] 02-26-2021 Episodic Other connective tissue disease (1 source) Disorder of rotator cuff; Translations: [Unspecified disorder of synovium and tendon, right shoulder] Episodic Other connective tissue disease (2 sources) Swelling of lower limb; Translations: [Other specified soft tissue disorders] Episodic Other connective tissue disease (2 sources) Pain of left hand; Translations: [Pain in left hand] Episodic Other connective tissue disease (2 sources) Pain in right thumb; Translations: [Pain in right finger(s)] Episodic Other connective tissue disease (2 sources) Pain in right hand; Translations: [Pain in right hand] 08-02-2024 Episodic Other connective tissue disease (1 source) Pain in unspecified foot; Translations: [Foot pain] Onset: 5 Episodic Other diseases of bladder and urethra (3 sources) Bladder neck obstruction; 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] 12-17-2023 Chronic Other diseases of bladder and urethra (1 source) Bladder-neck obstruction; 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] Onset: 4 Chronic Other gastrointestinal disorders (1 source) Diarrhea; Translations: [Diarrhea, unspecified] Episodic Other injuries and conditions due to external causes (1 source) Injury of intestine; Translations: [Radiation sickness, unspecified, sequela] 06-24-2024 Episodic Other lower respiratory disease (2 sources) Dyspnea; Translations: [Shortness of breath] 07-04-2019 Episodic Other lower respiratory disease (2 sources) Breathing painful; Translations: [Chest pain on breathing] 07-25-2021 Episodic Other male genital disorders (1 source) Pain of left testicle; Translations: [Left testicular pain] Episodic Other nervous system disorders (20 sources) Carpal tunnel syndrome of right wrist; Translations: [Carpal tunnel syndrome, right upper limb] Onset: 6 11-14-2015 Chronic Other nervous system disorders (20 sources) Disorder of the peripheral nervous system; Translations: [Hereditary and idiopathic neuropathy, unspecified] Onset: 6 04-29-2016 Chronic Other nervous system disorders (2 sources) Cataplexy and narcolepsy; 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] 02-03-2019 Chronic Other nervous system disorders (4 sources) Carpal tunnel syndrome of left wrist; Translations: [Carpal tunnel syndrome, left upper limb] 03-29-2024 Chronic Other nervous system disorders (1 source) Carpal tunnel syndrome, left upper limb; Translations: [Carpal tunnel syndrome of left wrist] Onset: Chronic Other non-traumatic joint disorders (4 sources) Multiple joint pain; Translations: [Pain in unspecified joint] 02-03-2019 Episodic Other non-traumatic joint disorders (1 source) Hip pain; Translations: [Pain in left hip] 04-10-2023 Episodic Other non-traumatic joint disorders (2 sources) Pain in left knee; Translations: [Pain in joint, lower leg] Onset: 5 03-03-2025 Episodic Other nutritional; endocrine; and metabolic disorders (20 sources) Obesity; Translations: [Obesity, unspecified] Onset: 6 06-23-2018 Chronic Other nutritional; endocrine; and metabolic disorders (20 sources) Body mass index 40+ - severely obese; Translations: [Body mass index (BMI) 40.0-44.9, adult] Onset: 9 10-01-2018 Chronic Other nutritional; endocrine; and metabolic disorders (1 source) Hypercalcemia; Translations: [Hypercalcemia] Chronic Other nutritional; endocrine; and metabolic disorders (1 source) Body mass index (BMI) 40.0-44.9, adult; Translations: [BMI 40.0-44.9, adult ([facility])] Onset: 9 Chronic Other screening for suspected conditions (not mental disorders or infectious disease) (2 sources) Raised prostate specific antigen; Translations: [Elevated prostate specific antigen [PSA]] 03-08-2020 Episodic Other upper respiratory infections (2 sources) Acute maxillary sinusitis; Translations: [Acute maxillary sinusitis, unspecified] 03-03-2022 Episodic Peripheral and visceral atherosclerosis (20 sources) Peripheral vascular disease; Translations: [Peripheral vascular disease, unspecified] Onset: 3 Chronic Residual codes; unclassified (20 sources) Obstructive sleep apnea syndrome; Translations: [Obstructive sleep apnea (adult) (pediatric)] Onset: 7 05-10-2007 Chronic Residual codes; unclassified (2 sources) Central sleep apnea syndrome; Translations: [Primary central sleep apnea] 02-03-2019 Chronic Residual codes; unclassified (4 sources) Pain; Translations: [Pain, unspecified] Episodic Residual codes; unclassified (1 source) Hot flash due to medication; Translations: [Flushing] Episodic Residual codes; unclassified (1 source) Bilateral lower limb edema; Translations: [Localized edema] 12-15-2022 Episodic Skin and subcutaneous tissue infections (2 sources) Cellulitis; Translations: [Cellulitis, unspecified] 10-14-2021 Episodic Spondylosis; intervertebral disc disorders; other back problems (1 source) Lumbago-sciatica due to displacement of lumbar intervertebral disc; Translations: [Other intervertebral disc displacement, lumbosacral region] 04-10-2023 Chronic Sprains and strains (1 source) Sprain of unspecified ligament of unspecified ankle, initial encounter; Translations: [Ankle sprain] Onset: 5 Episodic Past or Other Problems Problem Classification Problem Date Documented Da te Episodic/Chronic Allergic reactions (20 sources) Disorder of skin and/or subcutaneous tissue; Translations: [Other specified disorders of the skin and subcutaneous tissue related to radiation] Onset: 4 07-14-2024 Episodic Anal and rectal conditions (20 sources) Anal fissure; Translations: [Anal fissure, unspecified] Onset: 6 07-14-2016 Episodic Fever of unknown origin (20 sources) Fever; Translations: [Fever, unspecified] Onset: 7 Resolved: 7 07-25-2021 Episodic Gastrointestinal hemorrhage (20 sources) Lower gastrointestinal hemorrhage; Translations: [Gastrointestinal hemorrhage, unspecified] Onset: 6 07-14-2016 Episodic Headache; including migraine (20 sources) Hemicrania continua; Translations: [Hemicrania continua] Onset: 5 Resolved: 6 11-14-2015 Chronic Other aftercare (20 sources) Surgical follow-up; Translations: [Encounter for follow-up examination after completed treatment for conditions other than malignant neoplasm] Onset: 8 Resolved: 6 11-14-2015 Episodic Other connective tissue disease (20 sources) Swelling of left lower limb; Translations: [Other specified soft tissue disorders] Onset: 3 12-02-2022 Episodic Other connective tissue disease (20 sources) Soft tissue lesion of shoulder region; Translations: [Bursopathy, unspecified] Onset: 7 Resolved: 6 11-14-2015 Episodic Other connective tissue disease (1 source) Pain in right hand; Translations: [Right hand pain] Onset: 4 Episodic Other nervous system disorders (20 sources) Atypical facial pain; Translations: [Atypical facial pain] Onset: 5 Resolved: 6 11-14-2015 Episodic Other nervous system disorders (20 sources) Trigeminal nerve disorder; Translations: [Disorder of trigeminal nerve, unspecified] Onset: 5 Resolved: 6 11-14-2015 Episodic Other nervous system disorders (20 sources) Right trigeminal neuralgia; Translations: [Trigeminal neuralgia] Onset: 5 Resolved: 6 11-14-2015 Episodic Other non-traumatic joint disorders (20 sources) Pain in right knee; Translations: [Pain in joint, lower leg] Onset: 8 07-28-2018 Episodic Other non-traumatic joint disorders (20 sources) Shoulder joint pain; Translations: [Pain in unspecified shoulder] Onset: 7 Resolved: 6 11-14-2015 Episodic Pneumonia (except that caused by tuberculosis or sexually transmitted disease) (20 sources) Pneumonia; Translations: [Pneumonia, unspecified organism] Onset: 7 Resolved: 8 07-25-2021 Episodic Residual codes; unclassified (20 sources) History of radial keratotomy; Translations: [Other specified postprocedural states] Onset: 6 04-03-2016 Episodic Residual codes; unclassified (1 source) Pain, unspecified; Translations: [Pain] Onset: 4 Episodic Unclassified (1 source) Rotator Cuff Repair ahsan shoulders 04-27-2022 Urinary tract infections (20 sources) Irradiation cystitis; Translations: [Irradiation cystitis without hematuria] Onset: 4 06-24-2024 Episodic Varicose veins of lower extremity (20 sources) Varicose veins of bilateral lower limbs; Translations: [Asymptomatic varicose veins of bilateral lower extremities] Onset: 8 06-23-2018 Episodic Results Test Name Value Interpretation Reference Range Facility [facility] 03-03-2025 CNOV Office Visit (ORMDNA ) SYLVIE CHIU ([id number]) 1950 M [facility] Date Time Provider Department 03/03/25 8:30 AM SELWYN LEIVA During your visit today, we recorded the following information about you: Selwyn Leiva PA-C 03/03/2025 8:40 AM Signed DEPARTMENT OF ORTHOPAEDICS CC: Follow-up visit after knee replacement HPI: Mr. Chiu is here today for his 7 year clinical follow up status post right total knee replacement. Since his last visit Mr. Chiu conveys the interval has been complicated by left knee pain. We injected the left knee 2 years ago and sylvie reports good pain relief. He is now having increased pain with activity, no sleep disruption.. Pleased with outcome: Yes Pain? 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 History of anal fissures Obesity APRIL (obstructive sleep apnea) 02/2007 Pain in joint, multiple sites Prostate cancer (HCC) Unspecified essential hypertension Unspecified glaucoma(365.9) PAST SURGICAL HISTORY Procedure Laterality Date ANKLE SURGERY HX Left left ankle fracture and piece of metal removed ARTHRP KNE CONDYLEANDPLATU MEDIALANDLAT COMPARTMENTS Right 06/30/2018 Knee replacement, total BRONCHOSCOPY 09/17/2006 COLONOSCOPY 04/2016 MEDIASTINOSCOPY 10/02/2006 histoplasmosis NEUROPLASTY AND/TRANSPOS MEDIAN NRV CARPAL TUNNE Right 11/28/2015 Carpal tunnel decomp PAST SURGICAL HISTORY OF lasik bilat.; 5 ops R eye and now blind R REMOVAL OF ANAL FISSURE ROTATOR CUFF REPAIR Right ROTATOR CUFF REPAIR Left TONSILLECTOMY AND ADENOIDECTOMY VASECTOMY UNI/BI SPX W/POSTOP SEMEN EXAMS Current Outpatient Medications Medication Sig Dispense Refill tamsulosin (FLOMAX) 0.4 mg By mouth, take 1-2 tablets daily (to aid in urination flow) 180 capsule 3 omega-3 fatty acids/fish oil (OMEGA 3 FISH OIL ORAL) Take by mouth once daily. celecoxib (CELEBREX) 200 mg capsule Take 200 mg by mouth once daily. hydrOXYchloroQUINE (PLAQUENIL) 200 mg tablet Take 1 tablet by mouth once daily. 90 tablet 3 ipratropium-albuterol (DUONEB) 0.5 mg-3 mg(2.5 mg base)/3 mL nebu Inhale 3 mL as instructed four times daily. 25 Each 2 furosemide (LASIX) 20 mg tablet Take 1 tablet by mouth once daily. 5 tablet 0 iv contrast (will be provided with radiology test) MRI Prostate Inject, intravenously, once for 1 dose. No IV access, insert saline lock prior to the beginning of sedation, infusion, injection of imaging exam. Discontinue saline lock post exam. If Pt. has a central line or IVAD, may access for administration according to line specific nursing protocol. Once exam is complete flush line and de-access according to line specific nursing protocol in the MR contrast administration guidelines link. 1 Each 0 acetaminophen (TYLENOL) 325 mg tablet Take 650 mg by mouth as needed. BIPAP ASV Adaptive Servo-Ventilation (ASV) with end-expiratory pressure (EEP) of 9 cmH2O and variable pressure support of 3-10 cmH2O. mask (pt pref), chin strap, heated tubing AND humidity, filters. Lifetime supplies. APRIL: G47.33. 1 Device 0 ALBUTEROL INHALATION Inhale 1 Inhalation as instructed as needed. hot humid weather lisinopril-hydrochlorothiaz narinder (PRINZIDE,ZESTORETIC) 20-12.5 mg per tablet Take 1 tablet by mouth once daily. modafinil(PROVIGIL 200 MG TAB) Take one(1) tablet daily in the morning. 90 1 pantoprazole (PROTONIX) 40 mg ORAL TbEC Take one(1) tablet daily. 0 BIPAP Please supply patient with Full face mask, [employer] VIP [id number]. 1 0 gabapentin (NEURONTIN) 100 mg capsule Take 1 capsule by mouth three times a day for 10 days. (Patient not taking: Reported on 03/03/2025) 30 capsule 0 No current facility-administered medications for this visit. ALLERGIES No Known Allergies FAMILY HISTORY Problem Relation Age of Onset Colon Cancer Father mgf other (hyperchol) Father other (cva) Father pgf, mgm other (heart dis) Father pgm Prostate Cancer Maternal Grandfather Social History Tobacco Use Smoking status: Former Current packs/day: 1.00 Average packs/day: 1 pack/day for 20.0 years (20.0 ttl pk-yrs) Types: Cigarettes Smokeless tobacco: Never Tobacco comments: quit over 35 yrs ago Vaping Use Vaping status: Never Used Substance Use Topics Alcohol use: Yes Alcohol/week: 2.0 - 3.0 standard drinks of alcohol Types: 2 - 3 Cans of Beer (12oz) per week Drug use: No EXAMINATION: GENERAL:no apparent distress RESP:Unlabor (more content not included)... Normal [facility] Large Joint Arthro/Inj: L kn ee jointon 03-03-2025 Selwyn Leiva PA- C 03/03/2025 8:40 AM Large Joint Arthro/Inj: L knee joint 03/03/2025 8:39 AM The procedure site was prepped in the usual sterile fashion. Site: L knee joint Medications: 12 mg betamethasone acetate-betamethasone sodium phosphate 6 mg/mL Anesthetics: 3 mL lidocaine (PF) 10 mg/mL (1 %) Outcome: Tolerated well, no immediate complications Post-injection instructions were reviewed with the patient and the patient voiced understanding of these instructions. Informed Consent Consent Obtained: Verbal [place] Protocol A moment to CARE was completed. SIGN IN Personnel directly involved with the procedure wore the appropriate PPE. Special Equipment: N/A Patient/Surrogate Stated/Verified: Patient name, Date of , Relevant allergies and Intended procedure TIME OUT Relevant labs, photos, and/or imaging studies have been reviewed. Consent documented and matches the intended procedure. Correct side/site marked and visible. Medications required for procedure verified. No fire risk assessment and interventions applicable. No implant(s) inserted. [facility] XR KNEE 4V AP/PA BOTH+LAT/ME R LTon 03-03-2025 XR KNEE 4V AP/PA BOTH+LAT/BHUMI LT * * *Final Report* * * DATE OF EXAM: Mar 03 2025 8:09AM MANUEL 5202 - XR KNEE 4V AP/PA BOTH+LAT/BHUMI LT / PROCEDURE REASON: M25.562-Left knee pain, unspecified chronicity * * * * Physician Interpretation * * * * PROCEDURE: Left knee INDICATION: Left knee pain, unspecified chronicity .left knee pain TECHNIQUE: XR KNEE 4V AP/PA BOTH+LAT/BHUMI LT COMPARISON: 12/24/2021 FINDINGS: Significant medial and patellofemoral joint compartment narrowing, showing mild interval progression. There is [id number] in the lateral patellofemoral joint compartment. Small joint bodies, new compared to previous. No fracture or joint effusion. IMPRESSION: Progressive, advanced osteoarthritis with small joint bodies Manager Urgent Care: [facility] Transcribe Date/Time: Mar 05 2025 11:18A Dictated by : ISAEL MAGAÑA MD This examination was interpreted and the report reviewed and electronically signed by: ISAEL MAGAÑA MD on Mar 05 2025 11:20AM EST [id number] [facility] CNOVon 03-02-2025 CNOV Office Visit (ORTHBR ) SYLVIE CHIU ([id number]) 1950 M [facility] Date Time Provider Department 03/02/25 8:20 AM NATAN ALCAZAR During your visit today, we recorded the following information about you: Weight Height 135.6 kg 1.803 m Natan Alcazar DO 03/02/2025 8:49 AM Signed CHIEF COMPLAINT: Patient presents with: Left Wrist - Established Patient, Pain PAIN EVALUATION 03/01/2025 1037 03/02/2025 0753 Pain Level: 6 2 Pain Location: Wrist-Left Wrist-Left Description: Aching;Cramping;Sore;Stabbi ng;Stiffness;Tenderness;Thr obbing Aching Duration Amount of Time: -- 5 Duration Units: -- Months Frequency: Continuous Continuous Intervention/Comfort measure: -- Declined HISTORY OF PRESENT ILLNESS: Sylvie Chiu is a 74 year old male presenting for follow-up of left wrist pain. Since last visit, he is doing better. Pain is 6/10 and improving. Current treatment includes USG L CMC CSI in 07/2024. Patient stated after the last injection he did feel a lot better, but now he feels it's wearing off. Past medical, surgical, social and family history were reviewed. Allergies and current medications reviewed. PHYSICAL EXAMINATION: Body Habitus: well nourished and no acute distress Orientation: Normal: Oriented to person, place and time Psych: normal Specific MSK Exam LEFT Hand/Wrist: Inspection: No joint deformities or swelling noted on examination today Tenderness: L CMC, mild tenderness over FCR as well Range of Motion: Finger: normal ROM of all joints of all fingers of both hands Wrist Flexion: normal ROM when compared to the contralateral side Wrist Extension: normal ROM when compared to the contralateral side Muscle Strength: Wrist extension (C6): 4+/5 Wrist flexion (C7): 5/5 Finger abduction: 5/5 Neurologic: Dorsal thumb (radial nerve): Normal sensation to light touch Index finger (median nerve): Normal sensation to light touch 5th finger (ulnar nerve): Normal sensation to light touch Hitchhike sign (PIN): 5/5 Additional testing: CMC grind: painful without crepitant joint IMAGING: No imaging was performed today. CLINICAL IMPRESSION: (M18.12) Arthritis of carpometacarpal (CMC) joint of left thumb (primary encounter diagnosis) Advanced, history of CTR on L with Dr. Wayne. RECOMMENDATION/PLAN: - Risks, benefits, and indications for corticosteroid injections discussed. Injection performed as detailed in the procedure note below. - Continue Celebrex, on Plaquenil - Advised to start using brace for comfort during work - OK for Tylenol as well as ice Follow up: if symptoms persist or worsen Films prior to visit: No additional imaging warranted. Written instructions (see patient instructions) and verbal health teaching given to patient, patient verbalizes understanding and agrees with treatment plan. Small Joint Arthro/Inj: L thumb CMC 03/02/2025 8:49 AM The procedure site was prepped in the usual sterile fashion. Details:Musculoskeletal ultrasound was utilized to successfully localize placement of the injection needle at the appropriate site. Ultrasound images demonstrating local vasculature and demonstrating injection of solution were saved. Medications: 40 mg triamcinolone acetonide 40 mg/mL Anesthetics: 0.5 mL ROPivacaine (PF) 5 mg/mL (0.5 %) Outcome: tolerated well, no immediate complications Post-injection instructions were reviewed with the patient and the patient voiced understanding of these instructions. Informed Consent Consent Obtained: Verbal [place] Protocol A moment to CARE was completed. SIGN IN Personnel directly involved with the procedure wore the appropriate PPE. Patient/Surrogate Stated/Verified: Patient name, Date of , Relevant allergies and Intended procedure TIME OUT Relevant labs, photos, and/or imaging studies have been reviewed. Correct side/site marked and visible. Medications required for procedure verified. SIGN OUT The post-procedure POC has been communicated to the patient or surrogate. Electronically Signed: Natan Alcazar DO Sports Medicine Physician Medical Decision Making Natan Alcazar DO 03/02/2025 8:31 AM Signed Post injection Instructions: You received a steroid injection today. Please keep any physical therapy appointments and schedule a follow-up appointment as recommended. Benefits: Injections help with PAIN and allow you to better participate in daily activities and exercise/therapy. Injections do NOT cause healing of arthritis or injuries. As pain is better controlled, this will reduce the need to use anti-inflammatories by mouth and/or if you are not able to take an anti-inflammatory due to other reasons (you have been advised to avoid or they are contra-indicated). Activity recommendations: For the first 24 hours after the injection, lupe (more content not included)... Normal [facility] Small Joint Arthro/Inj: L th umb CMCon 03-02-2025 Natan Alcazar, DO 03/02/2025 8:49 AM Small Joint Arthro/Inj: L thumb CMC 03/02/2025 8:49 AM The procedure site was prepped in the usual sterile fashion. Details:Musculoskeletal ultrasound was utilized to successfully localize placement of the injection needle at the appropriate site. Ultrasound images demonstrating local vasculature and demonstrating injection of solution were saved. Medications: 40 mg triamcinolone acetonide 40 mg/mL Anesthetics: 0.5 mL ROPivacaine (PF) 5 mg/mL (0.5 %) Outcome: tolerated well, no immediate complications Post-injection instructions were reviewed with the patient and the patient voiced understanding of these instructions. Informed Consent Consent Obtained: Verbal [place] Protocol A moment to CARE was completed. SIGN IN Personnel directly involved with the procedure wore the appropriate PPE. Patient/Surrogate Stated/Verified: Patient name, Date of , Relevant allergies and Intended procedure TIME OUT Relevant labs, photos, and/or imaging studies have been reviewed. Correct side/site marked and visible. Medications required for procedure verified. SIGN OUT The post-procedure POC has been communicated to the patient or surrogate. [facility] US WRIST-INJECTION LT (POC) SALONI USE ONLYon 03-02-2025 [facility] ALLIED HEALTHon 01-19-2025 ALLIED HEALTH HNO ID: [id number] Author: LINDSEY FISHER RT(R) Service: Radiology Author Type: Technologist Type: Allied Health Filed: 01/19/2025 18:45 Note Text: Radiology Service Progress Note PATIENT NAME: Sylvie Chiu MRN: [id number] DATE OF SERVICE: January 19, 2025 TIME: 6:44 PM PATIENT IDENTITY VERIFICATION COMPLETED USING TWO (2) IDENTIFIERS: Name and Date of confirmed by patient verbally and Name and Date of confirmed by identification band. FALL SCREENING: Has the patient had 2 falls in the last year or 1 fall with injury or currently using an Ambulatory Assistive Device (Walker, Cane, Wheelchair, Crutches, etc.)? Emergency Room Patient: Screened in ED PATIENT GENDER DATA: Assigned male at PATIENT RELEVANT IMPLANT DATA REVIEWED: Not Applicable PATIENT PRESENTS WITH AN IMPLANTABLE OR ATTACHED USER INTERFACE DESIGNER: No RADIOLOGY DEPARTMENT: General X-ray: Exam(s) Completed: Lower Extremity X-Ray(s): Ankle, Right and Foot, Right PERIPHERAL IV DATA: Not applicable SIGNED BY: RT Brooks(R) January 19, 2025 6:44 PM [facility] ED NOTEon 01-19-2025 ED NOTE HNO ID: [id number] Author: HAYDE QUEEN RN Service: ? Author Type: Registered Nurse Type: ED Notes Filed: 01/19/2025 22:49 Note Text: Corky wrap, air cast and post op shoe placed to right foot/ankle. .Patient discharged, given verbal and written discharge instructions. Patient verbalized understanding. Nurse discussed medication (tylenol and motrin) that were prescribed and follow up appointments (Ortho) and signs/symptoms of worsening conditions, and reasons why to come back to the emergency department. [facility] ED PROV NOTEon 01-19-2025 ED PROV NOTE HNO ID: [id number] Author: MABEL ALVARENGA PA-C Service: Emergency Medicine Author Type: Physician Cost Estimator Type: ED Provider Notes Filed: 01/21/2025 00:41 Note Text: ED Provider Note Patient Name: Sylvie Chiu MRN: [id number] : 1950 SERVICE DATE: 01/19/25 History Patient presents with: Foot Trauma: Pt missed step on ladder and came down hard on R foot, was having pain and thought it would get better but it hasn't, this occurred 2-3 days ago, pt is ambulatory but with a wobbly gait, reports swelling in foot 74-year-old male presents to the emergency department for evaluation of ongoing foot pain for the last 2 to 3 days after he had been going up and down a ladder several times hanging cabinets. Not sure if he put particular amount of repetitive stress over plantar fascia which is causing his symptoms but also states that he skipped a rung when he was stepping off a ladder at 1 point and stepped down hard on his foot. Did not roll his ankle. Does not describe stumbling or having any other sort of particular injury. Has developed some swelling along the lateral aspect of his ankle. No additional joint pain throughout RLE. States he has arthritic knees and in combination with his right foot being acutely painful, he has atypical antalgic gait for him trying to compensate for both sides. 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 AND Prednisone History of anal fissures Obesity APRIL (obstructive sleep apnea) 02/2007 Pain in joint, multiple sites Prostate cancer (HCC) Unspecified essential hypertension Unspecified glaucoma(365.9) PAST SURGICAL HISTORY Procedure Laterality Date ANKLE SURGERY HX Left left ankle fracture and piece of metal removed ARTHRP KNE CONDYLEANDPLATU MEDIALANDLAT COMPARTMENTS Right 06/30/2018 Knee replacement, total BRONCHOSCOPY 09/17/2006 COLONOSCOPY 04/2016 MEDIASTINOSCOPY 10/02/2006 histoplasmosis NEUROPLASTY AND/TRANSPOS MEDIAN NRV CARPAL TUNNE Right 11/28/2015 Carpal tunnel decomp PAST SURGICAL HISTORY OF lasik bilat.; 5 ops R eye and now blind R REMOVAL OF ANAL FISSURE ROTATOR CUFF REPAIR Right ROTATOR CUFF REPAIR Left TONSILLECTOMY AND ADENOIDECTOMY VASECTOMY UNI/BI SPX W/POSTOP SEMEN EXAMS FAMILY HISTORY Problem Relation Age of Onset Colon Cancer Father mgf other (hyperchol) Father other (cva) Father pgf, mgm other (heart dis) Father pgm Prostate Cancer Maternal Grandfather Social History Tobacco Use Smoking status: Former Current packs/day: 1.00 Average packs/day: 1 pack/day for 20.0 years (20.0 ttl pk-yrs) Types: Cigarettes Smokeless tobacco: Never Tobacco comments: quit over 35 yrs ago Vaping Use Vaping status: Never Used Substance and Sexual Activity Alcohol use: Yes Alcohol/week: 2.0 - 3.0 standard drinks of alcohol Types: 2 - 3 Cans of Beer (12oz) per week Drug use: No Sexual activity: Not on file ALLERGIES No Known Allergies Review of Systems Constitutional: Negative for fever. Respiratory: Negative for shortness of breath. Cardiovascular: Negative for chest pain. Musculoskeletal: Positive for arthralgias and joint swelling. Skin: Negative for color change. Allergic/Immunologic: Negative for immunocompromised state. Neurological: Negative for weakness and numbness. Hematological: Does not bruise/bleed easily. Psychiatric/Behavioral: Negative for confusion. Physical Exam Vitals [01/19/25 1818] BP Pulse Temp Temp src Resp SpO2 Weight Height 153/80 68 36.5 ?C (97.7 ?F) Oral 18 96 % (!) 142.9 kg (315 lb) -- Physical Exam Vitals and nursing note reviewed. Constitutional: General: He is awake. He is not in acute distress. Appearance: Normal appearance. He is well-developed and well-groomed. He is not ill-appearing, toxic-appearing or diaphoretic. HENT: Head: Normocephalic and atraumatic. Nose: Nose normal. Cardiovascular: Rate and Rhythm: Normal rate. Pulses: Normal pulses. Pulmonary: Effort: Pulmonary effort is normal. Musculoskeletal: Cervical back: Normal range of motion. Right knee: No bony tenderness. Right lower leg: No swelling or bony tenderness. Right ankle: Tenderness present over the ATF ligament. No base of 5th metatarsal or proximal fibula tenderness. Right Achilles Tendon: No tenderness or defects. William's test negative. Left ankle: Normal. Right foot: Tenderness (to sole of foot, distribution of plantar fascia, and heel) present. No swelling or bony tenderness. Left foot: Normal. Skin: General: Skin is warm. Neurological: General: No focal deficit present. Mental Status: He is alert and oriented to person, place, and time. Psychiatric: Mood and Affect: Mood normal. Behavior: Behavior normal. Be (more content not included)... Normal [facility] XR ANKLE 3V AP/LAT/OBL RTon 01-19-2025 XR ANKLE 3V AP/LAT/OBL RT * * *Final Report* * * DATE OF EXAM: Jan 19 2025 6:47PM MDX [id number] - XR ANKLE 3V AP/LAT/OBL RT / PROCEDURE REASON: Ankle pain, no prior imaging * * * * Physician Interpretation * * * * EXAM: XR ANKLE 3V AP/LAT/OBL RT, XR FOOT 3V AP/LAT/OBL RT HISTORY: Ankle pain, no prior imaging COMPARISON: None available FINDINGS: Bones are demineralized. Circumferential ankle soft tissue swelling is present. No fracture or dislocation. Mild scattered degenerative change. IMPRESSION: No acute osseous abnormality in the right foot or right ankle. Circumferential ankle soft tissue swelling. Manager Urgent Care: SAMANTHA Transcribe Date/Time: Jan 19 2025 7:47P Dictated by : TIAN HELTON MD This examination was interpreted and the report reviewed and electronically signed by: TIAN HELTON MD on Jan 19 2025 7:49PM EST [id number] [facility] XR FOOT 3V AP/LAT/OBL RTon 0 01-19-2025 XR FOOT 3V AP/LAT/OBL RT * * *Final Report* * * DATE OF EXAM: Jan 19 2025 6:47PM MDX [id number] - XR FOOT 3V AP/LAT/OBL RT / PROCEDURE REASON: Foot trauma, no prior imaging * * * * Physician Interpretation * * * * EXAM: XR ANKLE 3V AP/LAT/OBL RT, XR FOOT 3V AP/LAT/OBL RT HISTORY: Ankle pain, no prior imaging COMPARISON: None available FINDINGS: Bones are demineralized. Circumferential ankle soft tissue swelling is present. No fracture or dislocation. Mild scattered degenerative change. IMPRESSION: No acute osseous abnormality in the right foot or right ankle. Circumferential ankle soft tissue swelling. Manager Urgent Care: SAMANTHA Transcribe Date/Time: Jan 19 2025 7:47P Dictated by : TIAN HELTON MD This examination was interpreted and the report reviewed and electronically signed by: TIAN HELTON MD on Jan 19 2025 7:49PM EST [id number] [facility] CNOVon 12-23-2024 CNOV Office Visit (RADRST ) SYLVIE CHIU ([id number]) 1950 [facility] Date Time Provider Department 12/23/24 9:00 AM HUSSEIN ORDONEZ During your visit today, we recorded the following information about you: Weight 142 kg Hussein Ordonez MD 12/23/2024 4:11 PM Signed Radiation Oncology - Follow Up Note PATIENT NAME: Sylvie Chiu PATIENT DIAGNOSIS: 74 year old man with high-intermediate risk prostate cancer, [id number], GG2, clinical Stage IIB, iPSA 5.5 [Bruce 3+4=7 (1 core), Bruce 3+3=6 (9 cores) (10/13 cores+); prostate MRI - enlarged pelvic - concern for inguinal LN/bone metastasis, high-risk Decipher test - 0.98; PSMA-PET negative for bone/LN metastasis], s/p: Leuprolide 22.5 mg inj 09/09/22, 12/09/22 Radiation therapy 11/06/22 - 12/15/22 [7000 cGy/6600 cGy/5040 cGy/28 fx to prostate/SVs/pelvic lymph nodes] INTERVAL HISTORY: Mr. Chiu presents for routine follow-up approximately 2 years after the completion of radiation therapy. Mr. Chiu has a history of BPH managed with tamsulosin. He is noted to have an elevated PSA of 6.29 ng/mL on 10/18/2021. Repeat PSA on 06/04/2022 was 5.5 ng/mL. No prostate nodularity was present on MANJU. Prostate biopsy on 05/08/22 showed adenocarcinoma, Bruce 3+4=7 (1 core), Bruce 3+3=6 (9 cores) (10/13 cores+). CT of the pelvis and bone scan on 06/09/22 showed no metastatic disease. MRI showed evidence of bone metastasis (right femoral neck, right iliac, right posterior acetabulum), enlarged pelvic and bilateral inguinal lymph nodes, and disease at the left peripheral zone (PIRADS 5) bulging the capsule, compressing the adjacent neurovascular bundle. Decipher testing showed a high-risk score (below).* PSMA-PET/CT on 08/07/22 showed no evidence of bone or lymph node metastasis. PSMA-expression lesions were noted in the prostate consistent with the known prostate cancer. He started Lupron on 09/09/22 and completed radiation therapy on 12/15/22. He met with Dr. Alex Erazo (rheumatology on 12/14/23); felt not to have rheumatoid arthritis, but to have OA. He was referred back to urology in January 2024 (Dr. Michelle) due to LUTS - no stricture seen on 02/19/24 He also noted urgent stools. Colonoscopy on 01/27/24 ([facility]) showed non-bleeding diverticula in the sigmoid colon; abnormal vascularity in the proximal rectum compatible with mild radiation proctitis. He underwent HBOT in June - August 2024. PSA HISTORY: ALLERGIES No Known Allergies tamsulosin (FLOMAX) 0.4 mg By mouth, take 1-2 tablets daily (to aid in urination flow) omega-3 fatty acids/fish oil (OMEGA 3 FISH OIL ORAL) Take by mouth once daily. gabapentin (NEURONTIN) 100 mg capsule Take 1 capsule by mouth three times a day for 10 days. celecoxib (CELEBREX) 200 mg capsule Take 200 mg by mouth once daily. hydrOXYchloroQUINE (PLAQUENIL) 200 mg tablet Take 1 tablet by mouth once daily. ipratropium-albuterol (DUONEB) 0.5 mg-3 mg(2.5 mg base)/3 mL nebu Inhale 3 mL as instructed four times daily. furosemide (LASIX) 20 mg tablet Take 1 tablet by mouth once daily. iv contrast (will be provided with radiology test) MRI Prostate Inject, intravenously, once for 1 dose. No IV access, insert saline lock prior to the beginning of sedation, infusion, injection of imaging exam. Discontinue saline lock post exam. If Pt. has a central line or IVAD, may access for administration according to line specific nursing protocol. Once exam is complete flush line and de-access according to line specific nursing protocol in the MR contrast administration guidelines link. acetaminophen (TYLENOL) 325 mg tablet Take 650 mg by mouth as needed. BIPAP ASV Adaptive Servo-Ventilation (ASV) with end-expiratory pressure (EEP) of 9 cmH2O and variable pressure support of 3-10 cmH2O. mask (pt pref), chin strap, heated tubing AND humidity, filters. Lifetime supplies. APRIL: G47.33. ALBUTEROL INHALATION Inhale 1 Inhalation as instructed as needed. hot humid weather lisinopril-hydrochlorothiaz narinder (PRINZIDE,ZESTORETIC) 20-12.5 mg per tablet Take 1 tablet by mouth once daily. modafinil(PROVIGIL 200 MG TAB) Take one(1) tablet daily in the morning. pantoprazole (PROTONIX) 40 mg ORAL TbEC Take one(1) tablet daily. BIPAP Please supply patient with Full face mask, [employer] VIP [id number]. REVIEW OF SYSTEMS: He notes energy is a bit better but still remains fatigued, appetite is good Occasional pelvic discomfort. Urination D/N 8-10/0 +Urgency +Hesitency, mostly in the morning. Episodes of double voiding. Occasional leakage Dysuria is minimal for the past 2 weeks Uses Flomax 1-2/day, stream is good. Stools are becoming more normal in the past few weeks. Prior had episodes of bowel leakage. Formed or loose. No blood in stools. PHYSICAL EXAM: Wt (!) 142 kg (313 lb 1.6 oz) BMI 42.46 kg (more content not included)... [facility] CUTMISHA,SYLVIE Eyal ([id number]) 1950 [facility] Date Time Provider Department 12/19/24 HUSSEIN ORDONEZ During your visit today, we recorded the following information about you: Rohini Saab RN 12/19/2024 8:52 AM Signed Message left on spouse's phone that PSA order has been entered. Allergies As of Date: 12/19/2024 (No Known Allergies) Date Reviewed: 08/16/2024 Reviewed by: Natan Alcazar DO - Fully Assessed Prescriptions as of 12/19/2024 - gabapentin (NEURONTIN) 100 mg capsule Take 1 capsule by mouth three times a day for 10 days. - tamsulosin (FLOMAX) 0.4 mg TAKE 2 CAPSULES BY MOUTH EVERY DAY 30 MINUTES AFTER A MEAL - celecoxib (CELEBREX) 200 mg capsule Take 200 mg by mouth once daily. - hydrOXYchloroQUINE (PLAQUENIL) 200 mg tablet Take 1 tablet by mouth once daily. - ipratropium-albuterol (DUONEB) 0.5 mg-3 mg(2.5 mg base)/3 mL nebu Inhale 3 mL as instructed four times daily. - furosemide (LASIX) 20 mg tablet Take 1 tablet by mouth once daily. - iv contrast (will be provided with radiology test) MRI Prostate Inject, intravenously, once for 1 dose. No IV access, insert saline lock prior to the beginning of sedation, infusion, injection of imaging exam. Discontinue saline lock post exam. If Pt. has a central line or IVAD, may access for administration according to line specific nursing protocol. Once exam is complete flush line and de-access according to line specific nursing protocol in the MR contrast administration guidelines link. - acetaminophen (TYLENOL) 325 mg tablet Take 650 mg by mouth as needed. - BIPAP ASV Adaptive Servo-Ventilation (ASV) with end-expiratory pressure (EEP) of 9 cmH2O and variable pressure support of 3-10 cmH2O. mask (pt pref), chin strap, heated tubing AND humidity, filters. Lifetime supplies. APRIL: G47.33. - ALBUTEROL INHALATION Inhale 1 Inhalation as instructed as needed. hot humid weather - lisinopril-hydrochlorothiaz narinder (PRINZIDE,ZESTORETIC) 20-12.5 mg per tablet Take 1 tablet by mouth once daily. - modafinil(PROVIGIL 200 MG TAB) Take one(1) tablet daily in the morning. - pantoprazole (PROTONIX) 40 mg ORAL TbEC Take one(1) tablet daily. - BIPAP Please supply patient with Full face mask, [employer] VIP [id number]. 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] 05/31/2015 11/14/2015 Trigeminal neuralgia of right side of face [G50*05/31/2015 11/14/2015 Hemicrania continua [G44.51] 08/10/2015 11/14/2015 Carpal tunnel syndrome of right wrist [G56.01] 11/14/2015 Essential hypertension [I10] 11/14/2015 APRIL treated with BiPAP [G47.33] 11/14/2015 Gastroesophageal reflux disease without esophag*11/14/2015 Class 2 obesity with body mass index (BMI) of 3*11/14/2015 Cataract, nuclear sclerotic senile [H25.10] 04/03/2016 History of radial keratotomy [Z98.890] 04/03/2016 Hereditary and idiopathic peripheral neuropathy*04/29/2016 Fissure in ano [K60.2] 07/14/2016 LGI bleed [K92.2] 07/14/2016 Fever [R50.9] 10/29/2016 11/02/2016 Pneumonia [J18.9] 10/31/2016 06/23/2018 Primary osteoarthritis of right knee [M17.11] 06/01/2018 Primary localized osteoarthritis of right knee *06/08/2018 07/01/2018 Varicose veins of both lower extremities [I83.9*06/23/2018 S/P total knee replacement [Z96.659] 06/30/2018 Chronic pain of right knee [M25.561, G89.29] 07/28/2018 BMI 40.0-44.9, adult (HCC) [Z68.41] 10/01/2018 Prostate cancer (HCC) [C61] 08/11/2022 Left leg swelling [M79.89] 12/02/2022 Peripheral vascular disease (HCC) [I73.9] 02/09/2023 Encounter Status:Closed by ROHINI SAAB on 12/19/24 Normal [facility] Prostate specific Ag [Mass/Vol] 0.04 ng/mL Normal <2.60 [facility] Comment on above: Order Comment: Speci men Type: BLOOD SPECIMEN Ordering Facility: [facility] Address: [address] [place] [address] Result Comment: Davida l PSA test methodology used is the Electrochemiluminescence Immunoassay by [employer]. Total PSA values by differing methodologies cannot be interchanged. Performed By: #### 2 [id number] #### [facility] CLIA [id number] [address] [place] [address] [facility] CNOVon 08-16-2024 CNOV Office Visit (ORTHBR ) SYLVIE CHIU ([id number]) 1950 [facility] Date Time Provider Department 08/16/24 4:00 PM NATAN ALCAZAR ORTH During your visit today, we recorded the following information about you: Natan Alcazar DO 08/16/2024 4:25 PM Signed CHIEF COMPLAINT: Patient presents with: Right Thumb - Established Patient, Pain, Injections PAIN EVALUATION 08/15/2024 2248 08/16/2024 1601 Pain Level: 5 6 Pain Location: Hand-Right Finger Description: Aching;Burning;Cramping;Num bness;Pulsating;Radiating;S harp;Shooting;Sore; Stabbing;Throbbing;Tightnes s;Tingling Aching;Sharp Duration Amount of Time: -- 5 Duration Units: -- Years Frequency: Continuous Continuous Intervention/Comfort measure: -- Declined SUBJECTIVE: Sylvie Chiu is a 74 year old male here for consideration of USG R thumb CMC CSI. Last Hgba1c: No results found for: HBA1C Past medical, surgical, social and family history were reviewed. Allergies and current medications reviewed. REVIEW OF SYSTEMS: GENERAL: no recent illness, unexplained weight loss or weight gain NEUROLOGIC: no numbness, tingling, or weakness except as mentioned in HPI, no known neuro problems or deficits SKIN: No rash or new skin changes and no chronic skin problems MSK: as mentioned in HPI PHYSICAL EXAMINATION: GENERAL APPEARANCE: Well appearing, in no acute distress, alert and oriented x3. R thumb - cool to the touch without significant effusion. Skin is intact. Patient remains distally neurovascularly intact at baseline. IMAGING: Final results and radiologist's interpretation, available in the [facility] health record. Images were reviewed with the patient/family members in the office today. My personal interpretation of the performed imaging is chronic degenerative changes. CLINICAL IMPRESSION: (M18.11) Primary osteoarthritis of first carpometacarpal joint of right hand (primary encounter diagnosis) PLAN: Today, in detail, through a thorough evaluation, we discussed possible etiologies of pain and our plans for further diagnostic and therapeutic interventions. We discussed strategies for decreasing pain and improving strength, stability and motion. Patient's questions were answered in detailed. Patient verbalizes understanding and agrees with the treatment plan as discussed. In addition to the comprehensive evaluation as outlined above and as a separate element to the visit today, we have made the determination to proceed with an injection to aid in the treatment of the patient's condition. We discussed risks, benefits, alternatives and expected outcomes of this injection in detail and the patient agreed to proceed. The procedure was performed as detailed below. Small Joint Arthro/Inj: R thumb CMC Informed Consent Consent Obtained: Verbal [place] Protocol A moment to CARE was completed. SIGN IN Personnel directly involved with the procedure wore the appropriate PPE. Patient/Surrogate Stated/Verified: Patient name, Date of , Relevant allergies and Intended procedure TIME OUT Intended patient and procedure match the source document(s). Relevant labs, photos, and/or imaging studies have been reviewed. Correct side/site marked and visible. Medications required for procedure verified. 08/16/2024 4:25 PM The procedure site was prepped in the usual sterile fashion. Details:Musculoskeletal ultrasound was utilized to successfully localize placement of the injection needle at the appropriate site. Ultrasound images demonstrating local vasculature and demonstrating injection of solution were saved. Medications: 40 mg triamcinolone acetonide 40 mg/mL Anesthetics: 0.5 mL lidocaine (PF) 10 mg/mL (1 %) Outcome: tolerated well, no immediate complications Post-injection instructions were reviewed with the patient and the patient voiced understanding of these instructions. SIGN OUT Post-procedure follow-up management communicated and Plan of Care Visit completed when applicable Follow-up: per consulting provider Written instructions (see patient instructions) and verbal health teaching given to patient, patient verbalizes understanding and agrees with treatment plan. Electronically Signed: Natan Alcazar DO Sports Medicine Physician Natan Alcazar DO 08/16/2024 4:05 PM Signed Post injection Instructions: You received a steroid injection today. Please keep any physical therapy appointments and schedule a follow-up appointment as recommended. Benefits: Injections help with PAIN and allow you to better participate in daily activities and exercise/therapy. Injections do NOT cause healing of arthritis or injuries. As pain is better controlled, this will reduce the need to use anti-inflammatories by mouth and/or if you are not able to take an anti-inflammatory due to ot (more content not included)... Normal [facility] Small Joint Arthro/Inj: R th umb CMCon 08-16-2024 Natan Alcazar DO 08/16/2024 4:25 PM Small Joint Arthro/Inj: R thumb CMC Informed Consent Consent Obtained: Verbal [place] Protocol A moment to CARE was completed. SIGN IN Personnel directly involved with the procedure wore the appropriate PPE. Patient/Surrogate Stated/Verified: Patient name, Date of , Relevant allergies and Intended procedure TIME OUT Intended patient and procedure match the source document(s). Relevant labs, photos, and/or imaging studies have been reviewed. Correct side/site marked and visible. Medications required for procedure verified. 08/16/2024 4:25 PM The procedure site was prepped in the usual sterile fashion. Details:Musculoskeletal ultrasound was utilized to successfully localize placement of the injection needle at the appropriate site. Ultrasound images demonstrating local vasculature and demonstrating injection of solution were saved. Medications: 40 mg triamcinolone acetonide 40 mg/mL Anesthetics: 0.5 mL lidocaine (PF) 10 mg/mL (1 %) Outcome: tolerated well, no immediate complications Post-injection instructions were reviewed with the patient and the patient voiced understanding of these instructions. SIGN OUT Post-procedure follow-up management communicated and Plan of Care Visit completed when applicable [facility] US WRIST-INJECTION RT (POC) SALONI USE ONLYon 08-16-2024 [facility] CNOVon 08-02-2024 CNOV Office Visit (ORTHBR ) SYLVIE CHIU ([id number]) 1950 [facility] Date Time Provider Department 08/02/24 9:30 AM NATAN ALCAZAR During your visit today, we recorded the following information about you: Weight Height 142.9 kg 1.829 m Natan Alcazar DO 08/02/2024 10:01 AM Signed CHIEF COMPLAINT: Patient presents with: Left Thumb - New, Pain, Injections Right Thumb - New, Pain PAIN EVALUATION 08/02/2024 0913 Pain Level: 3 Pain Location: Finger Description: Aching;Sharp Duration Amount of Time: 3 Duration Units: Years Frequency: Continuous SUBJECTIVE: Sylvie Chiu is a 74 year old male here for consideration of USG L CMC CSI, referral from Dr. Lee Wayne. Last Hgba1c: No results found for: HBA1C Past medical, surgical, social and family history were reviewed. Allergies and current medications reviewed. REVIEW OF SYSTEMS: GENERAL: no recent illness, unexplained weight loss or weight gain NEUROLOGIC: no numbness, tingling, or weakness except as mentioned in HPI, no known neuro problems or deficits SKIN: No rash or new skin changes and no chronic skin problems MSK: as mentioned in HPI PHYSICAL EXAMINATION: GENERAL APPEARANCE: Well appearing, in no acute distress, alert and oriented x3. L thumb - cool to the touch without significant effusion. Skin is intact. Patient remains distally neurovascularly intact at baseline. IMAGING: No imaging was performed today. CLINICAL IMPRESSION: (M18.12) Arthritis of carpometacarpal (CMC) joint of left thumb (primary encounter diagnosis) (M79.641) Right hand pain PLAN: Today, in detail, through a thorough evaluation, we discussed possible etiologies of pain and our plans for further diagnostic and therapeutic interventions. We discussed strategies for decreasing pain and improving strength, stability and motion. Patient's questions were answered in detailed. Patient verbalizes understanding and agrees with the treatment plan as discussed. In addition to the comprehensive evaluation as outlined above and as a separate element to the visit today, we have made the determination to proceed with an injection to aid in the treatment of the patient's condition. We discussed risks, benefits, alternatives and expected outcomes of this injection in detail and the patient agreed to proceed. The procedure was performed as detailed below. Small Joint Arthro/Inj: L thumb CMC Informed Consent Consent Obtained: Verbal [place] Protocol A moment to CARE was completed. SIGN IN Personnel directly involved with the procedure wore the appropriate PPE. Patient/Surrogate Stated/Verified: Patient name, Date of , Relevant allergies and Intended procedure TIME OUT Intended patient and procedure match the source document(s). Relevant labs, photos, and/or imaging studies have been reviewed. Correct side/site marked and visible. Medications required for procedure verified. 08/02/2024 10:00 AM The procedure site was prepped in the usual sterile fashion. Details:Musculoskeletal ultrasound was utilized to successfully localize placement of the injection needle at the appropriate site. Ultrasound images demonstrating local vasculature and demonstrating injection of solution were saved. Medications: 40 mg triamcinolone acetonide 40 mg/mL Anesthetics: 0.5 mL ROPivacaine (PF) 5 mg/mL (0.5 %) Outcome: tolerated well, no immediate complications Post-injection instructions were reviewed with the patient and the patient voiced understanding of these instructions. SIGN OUT Post-procedure follow-up management communicated and Plan of Care Visit completed when applicable Follow-up: 2 weeks for USG R CMC CSI (XR prior to leaving today) Written instructions (see patient instructions) and verbal health teaching given to patient, patient verbalizes understanding and agrees with treatment plan. Electronically Signed: Natan Alcazar DO Sports Medicine Physician Allergies As of Date: 08/02/2024 (No Known Allergies) Date Reviewed: 08/02/2024 Reviewed by: Marina Barrett MA - Fully Assessed Reason for Visit: New [183038] Pain [78] Injections [199] New [171379] Pain [78] Primary Visit Diagnosis:Arthritis of carpometacarpal (CMC) joint of left thumb [M18.12] Other Visit Diagnosis:Right hand pain [M79.641] Order(s):US WRIST-INJECTION LT (POC) SALONI USE ONLY [8223881] Order #: [id number]: 1 XR HAND GENERAL 3V PA/LAT/OBL RIGHT [[id number]] Order #: [id number] FUTURE Small Joint Arthro/Inj: L thumb CMC [AZE473] Order #: [id number] [] ROPivacaine (PF) 5 mg/mL (0.5 %) 0.5 mL injection (NAROPIN)Disp: Rfl: [] triamcinolone acetonide 40 mg injection (KeNALog 40)Disp: Rfl: Prescriptions as of 08/02/2024 - gabapentin (NEURONTIN) 100 mg capsule Take 1 capsule by mouth three t (more content not included)... Normal [facility] Small Joint Arthro/Inj: L th umb CMCon 08-02-2024 Natan Alcazar DO 08/02/2024 10:01 AM Small Joint Arthro/Inj: L thumb CMC Informed Consent Consent Obtained: Verbal [place] Protocol A moment to CARE was completed. SIGN IN Personnel directly involved with the procedure wore the appropriate PPE. Patient/Surrogate Stated/Verified: Patient name, Date of , Relevant allergies and Intended procedure TIME OUT Intended patient and procedure match the source document(s). Relevant labs, photos, and/or imaging studies have been reviewed. Correct side/site marked and visible. Medications required for procedure verified. 08/02/2024 10:00 AM The procedure site was prepped in the usual sterile fashion. Details:Musculoskeletal ultrasound was utilized to successfully localize placement of the injection needle at the appropriate site. Ultrasound images demonstrating local vasculature and demonstrating injection of solution were saved. Medications: 40 mg triamcinolone acetonide 40 mg/mL Anesthetics: 0.5 mL ROPivacaine (PF) 5 mg/mL (0.5 %) Outcome: tolerated well, no immediate complications Post-injection instructions were reviewed with the patient and the patient voiced understanding of these instructions. SIGN OUT Post-procedure follow-up management communicated and Plan of Care Visit completed when applicable [facility] US WRIST-INJECTION LT (POC) SALONI USE ONLYon 08-02-2024 [facility] XR HAND 3V PA/LAT/OBL RTon 1 10-02-2023 XR HAND 3V PA/LAT/OBL RT * * *Final Report* * * DATE OF EXAM: Aug 02 2024 10:10AM BRX [id number] - XR HAND 3V PA/LAT/OBL RT / PROCEDURE REASON: Right hand pain * * * * Physician Interpretation * * * * PROCEDURE: Right hand INDICATION: Right hand pain .chronic pain base of R thumb. No injury TECHNIQUE: XR HAND 3V PA/LAT/OBL RT COMPARISON: 02/05/2023 FINDINGS: Diffuse bone demineralization. Advanced 1st CMC and 1st and 2nd DIP joint osteoarthrosis. Mild to moderate osteoarthritic change in all fingers. Narrowing of 1st, 2nd and 3rd MCP joints.. No erosions or focal soft tissue swelling. Chronic deformity of the 5th metacarpal most consistent with remote, healed fracture. IMPRESSION: Bone demineralization and advanced osteoarthritis Manager Urgent Care: [facility] Transcribe Date/Time: Aug 06 2024 10:39A Dictated by : ISAEL MAGAÑA MD This examination was interpreted and the report reviewed and electronically signed by: ISAEL MAGAÑA MD on Aug 06 2024 10:41AM EST [id number] Normal [facility] SYLVIE CHIU ([id number]) 1950 [facility] Date Time Provider Department 07/07/24 LEE WAYNE During your visit today, we recorded the following information about you: Maureen Kirby, DYLAN 07/07/2024 1:27 PM Signed Patients called checking on prescription for Gabapentin- which was called into pharmacy and looking for info on the US guided injection for his thumb. A consult request was sent to Dr Quintanilla office and they will contact the pt to schedule an appt. verbalized understanding of info. Allergies As of Date: 07/07/2024 (No Known Allergies) Date Reviewed: 06/24/2024 Reviewed by: Ros Cheng, DYLAN - Fully Assessed Reason for Visit: Patient Question [0562] Prescriptions as of 07/07/2024 - gabapentin (NEURONTIN) 100 mg capsule Take 1 capsule by mouth three times a day for 10 days. - tamsulosin (FLOMAX) 0.4 mg TAKE 2 CAPSULES BY MOUTH EVERY DAY 30 MINUTES AFTER A MEAL - celecoxib (CELEBREX) 200 mg capsule Take 200 mg by mouth once daily. - hydrOXYchloroQUINE (PLAQUENIL) 200 mg tablet Take 1 tablet by mouth once daily. - ipratropium-albuterol (DUONEB) 0.5 mg-3 mg(2.5 mg base)/3 mL nebu Inhale 3 mL as instructed four times daily. - furosemide (LASIX) 20 mg tablet Take 1 tablet by mouth once daily. - iv contrast (will be provided with radiology test) MRI Prostate Inject, intravenously, once for 1 dose. No IV access, insert saline lock prior to the beginning of sedation, infusion, injection of imaging exam. Discontinue saline lock post exam. If Pt. has a central line or IVAD, may access for administration according to line specific nursing protocol. Once exam is complete flush line and de-access according to line specific nursing protocol in the MR contrast administration guidelines link. - acetaminophen (TYLENOL) 325 mg tablet Take 650 mg by mouth as needed. - BIPAP ASV Adaptive Servo-Ventilation (ASV) with end-expiratory pressure (EEP) of 9 cmH2O and variable pressure support of 3-10 cmH2O. mask (pt pref), chin strap, heated tubing AND humidity, filters. Lifetime supplies. APRIL: G47.33. - ALBUTEROL INHALATION Inhale 1 Inhalation as instructed as needed. hot humid weather - lisinopril-hydrochlorothiaz narinder (PRINZIDE,ZESTORETIC) 20-12.5 mg per tablet Take 1 tablet by mouth once daily. - modafinil(PROVIGIL 200 MG TAB) Take one(1) tablet daily in the morning. - pantoprazole (PROTONIX) 40 mg ORAL TbEC Take one(1) tablet daily. - BIPAP Please supply patient with Full face mask, [employer] VIP [id number]. 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] 05/31/2015 11/14/2015 Trigeminal neuralgia of right side of face [G50*05/31/2015 11/14/2015 Hemicrania continua [G44.51] 08/10/2015 11/14/2015 Carpal tunnel syndrome of right wrist [G56.01] 11/14/2015 Essential hypertension [I10] 11/14/2015 APRIL treated with BiPAP [G47.33] 11/14/2015 Gastroesophageal reflux disease without esophag*11/14/2015 Class 2 obesity with body mass index (BMI) of 3*11/14/2015 Cataract, nuclear sclerotic senile [H25.10] 04/03/2016 History of radial keratotomy [Z98.890] 04/03/2016 Hereditary and idiopathic peripheral neuropathy*04/29/2016 Fissure in ano [K60.2] 07/14/2016 LGI bleed [K92.2] 07/14/2016 Fever [R50.9] 10/29/2016 11/02/2016 Pneumonia [J18.9] 10/31/2016 06/23/2018 Primary osteoarthritis of right knee [M17.11] 06/01/2018 Primary localized osteoarthritis of right knee *06/08/2018 07/01/2018 Varicose veins of both lower extremities [I83.9*06/23/2018 S/P total knee replacement [Z96.659] 06/30/2018 Chronic pain of right knee [M25.561, G89.29] 07/28/2018 BMI 40.0-44.9, adult (HCC) [Z68.41] 10/01/2018 Prostate cancer (HCC) [C61] 08/11/2022 Left leg swelling [M79.89] 12/02/2022 Peripheral vascular disease (HCC) [I73.9] 02/09/2023 Encounter Status:Closed by MAUREEN KIRBY on 07/07/24 Normal [facility] Tara 07-06-2024 CNPN Telephone (HEMABD) ARAMSYLVIE ([id number]) 1950 [facility] Date Time Provider Department 07/06/24 SEDA HATCH HEMABD During your visit today, we recorded the following information about you: Seda Hatch LISW 07/06/2024 8:41 AM Signed Patient Declined Social Work Assessment He states he did not fill this survey out C CLARITA Hatch Allergies As of Date: 07/06/2024 (No Known Allergies) Date Reviewed: 06/24/2024 Reviewed by: Ros Cheng, RN - Fully Assessed Prescriptions as of 07/06/2024 - gabapentin (NEURONTIN) 100 mg capsule Take 1 capsule by mouth three times a day for 10 days. - tamsulosin (FLOMAX) 0.4 mg TAKE 2 CAPSULES BY MOUTH EVERY DAY 30 MINUTES AFTER A MEAL - celecoxib (CELEBREX) 200 mg capsule Take 200 mg by mouth once daily. - hydrOXYchloroQUINE (PLAQUENIL) 200 mg tablet Take 1 tablet by mouth once daily. - ipratropium-albuterol (DUONEB) 0.5 mg-3 mg(2.5 mg base)/3 mL nebu Inhale 3 mL as instructed four times daily. - furosemide (LASIX) 20 mg tablet Take 1 tablet by mouth once daily. - iv contrast (will be provided with radiology test) MRI Prostate Inject, intravenously, once for 1 dose. No IV access, insert saline lock prior to the beginning of sedation, infusion, injection of imaging exam. Discontinue saline lock post exam. If Pt. has a central line or IVAD, may access for administration according to line specific nursing protocol. Once exam is complete flush line and de-access according to line specific nursing protocol in the MR contrast administration guidelines link. - acetaminophen (TYLENOL) 325 mg tablet Take 650 mg by mouth as needed. - BIPAP ASV Adaptive Servo-Ventilation (ASV) with end-expiratory pressure (EEP) of 9 cmH2O and variable pressure support of 3-10 cmH2O. mask (pt pref), chin strap, heated tubing AND humidity, filters. Lifetime supplies. APRIL: G47.33. - ALBUTEROL INHALATION Inhale 1 Inhalation as instructed as needed. hot humid weather - lisinopril-hydrochlorothiaz narinder (PRINZIDE,ZESTORETIC) 20-12.5 mg per tablet Take 1 tablet by mouth once daily. - modafinil(PROVIGIL 200 MG TAB) Take one(1) tablet daily in the morning. - pantoprazole (PROTONIX) 40 mg ORAL TbEC Take one(1) tablet daily. - BIPAP Please supply patient with Full face mask, [employer] VIP [id number]. 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] 05/31/2015 11/14/2015 Trigeminal neuralgia of right side of face [G50*05/31/2015 11/14/2015 Hemicrania continua [G44.51] 08/10/2015 11/14/2015 Carpal tunnel syndrome of right wrist [G56.01] 11/14/2015 Essential hypertension [I10] 11/14/2015 APRIL treated with BiPAP [G47.33] 11/14/2015 Gastroesophageal reflux disease without esophag*11/14/2015 Class 2 obesity with body mass index (BMI) of 3*11/14/2015 Cataract, nuclear sclerotic senile [H25.10] 04/03/2016 History of radial keratotomy [Z98.890] 04/03/2016 Hereditary and idiopathic peripheral neuropathy*04/29/2016 Fissure in ano [K60.2] 07/14/2016 LGI bleed [K92.2] 07/14/2016 Fever [R50.9] 10/29/2016 11/02/2016 Pneumonia [J18.9] 10/31/2016 06/23/2018 Primary osteoarthritis of right knee [M17.11] 06/01/2018 Primary localized osteoarthritis of right knee *06/08/2018 07/01/2018 Varicose veins of both lower extremities [I83.9*06/23/2018 S/P total knee replacement [Z96.659] 06/30/2018 Chronic pain of right knee [M25.561, G89.29] 07/28/2018 BMI 40.0-44.9, adult (HCC) [Z68.41] 10/01/2018 Prostate cancer (HCC) [C61] 08/11/2022 Left leg swelling [M79.89] 12/02/2022 Peripheral vascular disease (HCC) [I73.9] 02/09/2023 Encounter Status:Closed by SEDA HATCH on 07/06/24 [facility] CNOVon 07-05-2024 CNOV Office Visit (ORMDNA ) SYLVIE CHIU ([id number]) 1950 [facility] Date Time Provider Department 07/05/24 10:45 AM LEE WAYNE During your visit today, we recorded the following information about you: Lee Wayne MD 07/25/2024 3:23 PM Signed Lee Wayne MD Department of Orthopaedics Orthopaedics [address] [place] [id number] Dept: [phone] July 05, 2024 CHIEF COMPLAINT: Post Op of the Left Wrist and 11 week 4 days post op left CTR. HPI Pt still complaining of pain and numbness. Wondering if a steroid injection may help? ASSESSMENT: M18.12 Arthritis of carpometacarpal (CMC) joint of left thumb (primary encounter diagnosis) SUMMARY/PLAN: He's still dealing with neuritis on the left hand from his carpal tunnel. We'll go with gabapentin. The basal joint (and STT) joints are bothering him quite a bit. He would like to try an US guided injection and we'll help get that arranged. We may have to think about exploration of the carpal tunnel site to check on scar tissue vs. Injury and a nerve wrap. Exam: Healed incision. Positive tinnels in the palm. Swelling down. Motion better. Thumb joint with pain, swelling, positive grind test. Imaging: IMPRESSION: Bone demineralization and degenerative changes with possible scapholunate dissociation Manager Urgent Care: [facility] Transcribe Date/Time: Apr 01 2024 7:48A Dictated by : ISAEL MAGAÑA MD This examination was interpreted and the report reviewed and electronically signed by: ISAEL MAGAÑA MD on Apr 01 2024 7:49AM EST Results-Findings * * *Final Report* * * DATE OF EXAM: Mar 29 2024 10:03AM MANUEL [id number] - XR WRIST 3V PA/LAT/OBL LT / PROCEDURE REASON: [id number] * * * * Physician Interpretation * * * * PROCEDURE: Left wrist INDICATION: Pain .left wrist pain TECHNIQUE: XR WRIST 3V PA/LAT/OBL LT COMPARISON: None FINDINGS: Advanced osteopenia/osteoporosis. 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 Borderline widening of the scapholunate interval. No acute fracture. Mr. Sylvie Chiu was advised as to contrast therapies and/or to take analgesics/anti-inflammator ies as needed and all contraindications were reviewed. Supporting Information Below: Medications: Current Outpatient Medications Medication Sig tamsulosin (FLOMAX) 0.4 mg TAKE 2 CAPSULES BY MOUTH EVERY DAY 30 MINUTES AFTER A MEAL celecoxib (CELEBREX) 200 mg capsule Take 200 mg by mouth once daily. hydrOXYchloroQUINE (PLAQUENIL) 200 mg tablet Take 1 tablet by mouth once daily. ipratropium-albuterol (DUONEB) 0.5 mg-3 mg(2.5 mg base)/3 mL nebu Inhale 3 mL as instructed four times daily. furosemide (LASIX) 20 mg tablet Take 1 tablet by mouth once daily. iv contrast (will be provided with radiology test) MRI Prostate Inject, intravenously, once for 1 dose. No IV access, insert saline lock prior to the beginning of sedation, infusion, injection of imaging exam. Discontinue saline lock post exam. If Pt. has a central line or IVAD, may access for administration according to line specific nursing protocol. Once exam is complete flush line and de-access according to line specific nursing protocol in the MR contrast administration guidelines link. (Patient not taking: Reported on 04/26/2024) acetaminophen (TYLENOL) 325 mg tablet Take 650 mg by mouth as needed. BIPAP ASV Adaptive Servo-Ventilation (ASV) with end-expiratory pressure (EEP) of 9 cmH2O and variable pressure support of 3-10 cmH2O. mask (pt pref), chin strap, heated tubing AND humidity, filters. Lifetime supplies. APRIL: G47.33. ALBUTEROL INHALATION Inhale 1 Inhalation as instructed as needed. hot humid weather lisinopril-hydrochlorothiaz narinder (PRINZIDE,ZESTORETIC) 20-12.5 mg per tablet Take 1 tablet by mouth once daily. modafinil(PROVIGIL 200 MG TAB) Take one(1) tablet daily in the morning. pantoprazole (PROTONIX) 40 mg ORAL TbEC Take one(1) tablet daily. BIPAP Please supply patient with Full face mask, [employer] VIP [id number]. No current facility-administered medications for this visit. Allergies: Patient has no known allergies. Lee Wayne MD Allergies As of Date: 07/05/2024 (No Known Allergies) Date Reviewed: 06/24/2024 Reviewed by: Ros Cheng RN - Fully Assessed Reason for Visit: Post Op [174] 11 week 4 days post op left CTR [Other] Primary Visit Diagnosis:Arthritis of carpometacarpal (CMC) joint of left thumb [M18.12] Order(s):PROCEDURE REQUEST - SALONI ULTRASOUND-GUIDED INJECTION [[id number]] Order #: [id number]: 1 FUTURE gabapentin (NEURONTIN) 100 mg capsuleTake 1 capsule by mouth three times a day for 10 days.Disp: 30 capsuleRfl: 0 Prescriptions as of 07/25/2024 - gabapentin (NEURONTIN) 100 mg capsule Take 1 capsule by mouth three times a day for 10 days. - tamsulosin (FLOMAX) 0.4 mg TAKE 2 CAPSULES BY MOUTH (more content not included)... Normal [facility] CNOVon 06-24-2024 CNOV Office Visit (RADRST ) SYLVIE CHIU ([id number]) 1950 [facility] Date Time Provider Department 06/24/24 11:00 AM HUSSEIN ORDONEZ During your visit today, we recorded the following information about you: Hussein Ordonez MD 06/24/2024 11:47 AM Signed Radiation Oncology - Follow Up Note PATIENT NAME: Sylvie Chiu PATIENT DIAGNOSIS: 74 year old man with high-intermediate risk prostate cancer, [id number], GG2, clinical Stage IIB, iPSA 5.5 [Bruce 3+4=7 (1 core), Bruce 3+3=6 (9 cores) (10/13 cores+); prostate MRI - enlarged pelvic - concern for inguinal LN/bone metastasis, high-risk Decipher test - 0.98; PSMA-PET negative for bone/LN metastasis], s/p: Leuprolide 22.5 mg inj 09/09/22, 12/09/22 Radiation therapy 11/06/22 - 12/15/22 [7000 cGy/6600 cGy/5040 cGy/28 fx to prostate/SVs/pelvic lymph nodes] INTERVAL HISTORY: Mr. Chiu presents for routine follow-up approximately 1.5 years after the completion of radiation therapy. Mr. Chiu has a history of BPH managed with tamsulosin. He is noted to have an elevated PSA of 6.29 ng/mL on 10/18/2021. Repeat PSA on 06/04/2022 was 5.5 ng/mL. No prostate nodularity was present on MANJU. Prostate biopsy on 05/08/22 showed adenocarcinoma, Bruce 3+4=7 (1 core), Bruce 3+3=6 (9 cores) (10/13 cores+). CT of the pelvis and bone scan on 06/09/22 showed no metastatic disease. MRI showed evidence of bone metastasis (right femoral neck, right iliac, right posterior acetabulum), enlarged pelvic and bilateral inguinal lymph nodes, and disease at the left peripheral zone (PIRADS 5) bulging the capsule, compressing the adjacent neurovascular bundle. Decipher testing showed a high-risk score (below).* PSMA-PET/CT on 08/07/22 showed no evidence of bone or lymph node metastasis. PSMA-expression lesions were noted in the prostate consistent with the known prostate cancer. He started Lupron on 09/09/22 and completed radiation therapy on 12/15/22. He met with Dr. Alex Erazo (rheumatology on 12/14/23); felt not to have rheumatoid arthritis, but to have OA. He was referred back to urology in January 2024 (Dr. Michelle) due to LUTS - no stricture seen on 02/19/24 He also noted urgent stools. Colonoscopy on 01/27/24 ([facility]) showed non-bleeding diverticula in the sigmoid colon; abnormal vascularity in the proximal rectum compatible with mild radiation proctitis. PSA HISTORY: PSA (ng/mL) Date Value 06/06/2024 0.03 12/10/2023 0.07 06/11/2023 0.02 03/09/2023 0.03 10/18/2021 6.29 PSA Screening (NG/ML) Date Value 12/12/2008 2.4 ALLERGIES No Known Allergies tamsulosin (FLOMAX) 0.4 mg TAKE 2 CAPSULES BY MOUTH EVERY DAY 30 MINUTES AFTER A MEAL celecoxib (CELEBREX) 200 mg capsule Take 200 mg by mouth once daily. hydrOXYchloroQUINE (PLAQUENIL) 200 mg tablet Take 1 tablet by mouth once daily. ipratropium-albuterol (DUONEB) 0.5 mg-3 mg(2.5 mg base)/3 mL nebu Inhale 3 mL as instructed four times daily. furosemide (LASIX) 20 mg tablet Take 1 tablet by mouth once daily. iv contrast (will be provided with radiology test) MRI Prostate Inject, intravenously, once for 1 dose. No IV access, insert saline lock prior to the beginning of sedation, infusion, injection of imaging exam. Discontinue saline lock post exam. If Pt. has a central line or IVAD, may access for administration according to line specific nursing protocol. Once exam is complete flush line and de-access according to line specific nursing protocol in the MR contrast administration guidelines link. (Patient not taking: Reported on 04/26/2024) acetaminophen (TYLENOL) 325 mg tablet Take 650 mg by mouth as needed. BIPAP ASV Adaptive Servo-Ventilation (ASV) with end-expiratory pressure (EEP) of 9 cmH2O and variable pressure support of 3-10 cmH2O. mask (pt pref), chin strap, heated tubing AND humidity, filters. Lifetime supplies. APRIL: G47.33. ALBUTEROL INHALATION Inhale 1 Inhalation as instructed as needed. hot humid weather lisinopril-hydrochlorothiaz narinder (PRINZIDE,ZESTORETIC) 20-12.5 mg per tablet Take 1 tablet by mouth once daily. modafinil(PROVIGIL 200 MG TAB) Take one(1) tablet daily in the morning. pantoprazole (PROTONIX) 40 mg ORAL TbEC Take one(1) tablet daily. BIPAP Please supply patient with Full face mask, [employer] VIP [id number]. REVIEW OF SYSTEMS: He remains fatigued, appetite is good +Joint pains D/N = 06/28 due to internal pelvic pain at night, wakes him up and he must urinate. +Urgency/retention +Internal burning sensation Stream in the morning is slow Medications to aid urination: Flomax bid Bowel movement frequency: 2-4/day, episodes of stool incontinence, stools are loose. AUA 25 PHYSICAL EXAM: There were no vitals taken for this visit. KPS: 70 General Appearance: Alert and oriented. No acute distress. Ecchymosis at right buttocks, ~5 cm (more content not included)... Normal [facility] PSA SerPl-ncon 06-06-2024 Prostate specific Ag [Mass/Vol] 0.03 ng/mL Normal <2.60 [facility] Comment on above: Order Comment: Speci men Type: BLOOD SPECIMEN Ordering Facility: [facility] Address: [address] [place] [address] Result Comment: Tota l PSA test methodology used is the Electrochemiluminescence Immunoassay by [employer]. Total PSA values by differing methodologies cannot be interchanged. Performed By: #### 2 [id number] #### [facility] CLIA [id number] [address] [place] [address] [place] CNOVon 05-24-2024 CNOV Office Visit (ORMDNA ) SYLVIE CHIU ([id number]) 1950 [facility] Date Time Provider Department 05/24/24 3:45 PM LEE WAYNE ORLINDSAY During your visit today, we recorded the following information about you: Lee Wayne MD 06/21/2024 9:16 AM Signed Lee Wayne MD Department of Orthopaedics Orthopaedics [address] [place], [place] [id number] Dept: [phone] May 24, 2024 CHIEF COMPLAINT: Established Patient and Post Op of the Left Hand. HPI Patient here today for 5 week 4 days post op left CTR. He is still having some numbness in the thumb, middle and ring fingers and weakness in the wrist. ASSESSMENT: G56.02 Carpal tunnel syndrome on left (primary encounter diagnosis) SUMMARY/PLAN: He is doing quite well with expected, mildly improved numbness in the distribution of the median nerve. He can proceed with activities as tolerated and follow-up as needed, discussion about that this may take 6 to 12 months for full nerve improvement. Exam: Healed incision. Minimal swelling. Good range of motion. Neurovascular exam grossly intact. Supporting Information Below: Medications: Current Outpatient Medications Medication Sig tamsulosin (FLOMAX) 0.4 mg TAKE 2 CAPSULES BY MOUTH EVERY DAY 30 MINUTES AFTER A MEAL celecoxib (CELEBREX) 200 mg capsule Take 200 mg by mouth once daily. hydrOXYchloroQUINE (PLAQUENIL) 200 mg tablet Take 1 tablet by mouth once daily. ALBUTEROL INHALATION Inhale 1 Inhalation as instructed as needed. hot humid weather lisinopril-hydrochlorothiaz narinder (LOPEZ STARRSTORETIC) 20-12.5 mg per tablet Take 1 tablet by mouth once daily. modafinil(PROVIGIL 200 MG TAB) Take one(1) tablet daily in the morning. pantoprazole (PROTONIX) 40 mg ORAL TbEC Take one(1) tablet daily. ipratropium-albuterol (DUONEB) 0.5 mg-3 mg(2.5 mg base)/3 mL nebu Inhale 3 mL as instructed four times daily. furosemide (LASIX) 20 mg tablet Take 1 tablet by mouth once daily. iv contrast (will be provided with radiology test) MRI Prostate Inject, intravenously, once for 1 dose. No IV access, insert saline lock prior to the beginning of sedation, infusion, injection of imaging exam. Discontinue saline lock post exam. If Pt. has a central line or IVAD, may access for administration according to line specific nursing protocol. Once exam is complete flush line and de-access according to line specific nursing protocol in the MR contrast administration guidelines link. (Patient not taking: Reported on 04/26/2024) acetaminophen (TYLENOL) 325 mg tablet Take 650 mg by mouth as needed. BIPAP ASV Adaptive Servo-Ventilation (ASV) with end-expiratory pressure (EEP) of 9 cmH2O and variable pressure support of 3-10 cmH2O. mask (pt pref), chin strap, heated tubing AND humidity, filters. Lifetime supplies. APRIL: G47.33. BIPAP Please supply patient with Full face mask, [employer] VIP [id number]. No current facility-administered medications for this visit. Allergies: Patient has no known allergies. Lee Wayne MD Referring Provider: LEE WAYNE [[id number]] Allergies As of Date: 05/24/2024 (No Known Allergies) Date Reviewed: 05/24/2024 Reviewed by: Chantale Abdul MA - Fully Assessed Reason for Visit: Established Patient [175] Post Op [174] Primary Visit Diagnosis:Carpal tunnel syndrome on left [G56.02] Prescriptions as of 06/21/2024 - tamsulosin (FLOMAX) 0.4 mg TAKE 2 CAPSULES BY MOUTH EVERY DAY 30 MINUTES AFTER A MEAL - celecoxib (CELEBREX) 200 mg capsule Take 200 mg by mouth once daily. - hydrOXYchloroQUINE (PLAQUENIL) 200 mg tablet Take 1 tablet by mouth once daily. - ipratropium-albuterol (DUONEB) 0.5 mg-3 mg(2.5 mg base)/3 mL nebu Inhale 3 mL as instructed four times daily. - furosemide (LASIX) 20 mg tablet Take 1 tablet by mouth once daily. - iv contrast (will be provided with radiology test) MRI Prostate Inject, intravenously, once for 1 dose. No IV access, insert saline lock prior to the beginning of sedation, infusion, injection of imaging exam. Discontinue saline lock post exam. If Pt. has a central line or IVAD, may access for administration according to line specific nursing protocol. Once exam is complete flush line and de-access according to line specific nursing protocol in the MR contrast administration guidelines link. - acetaminophen (TYLENOL) 325 mg tablet Take 650 mg by mouth as needed. - BIPAP ASV Adaptive Servo-Ventilation (ASV) with end-expiratory pressure (EEP) of 9 cmH2O and variable pressure support of 3-10 cmH2O. mask (pt pref), chin strap, heated tubing AND humidity, filters. Lifetime supplies. APRIL: G47.33. - ALBUTEROL INHALATION Inhale 1 Inhalation as instructed as needed. hot humid weather - lisinopril-hydrochlorothiaz narinder (PRINZIDE,ZESTORETIC) 20-12.5 mg per tablet Take 1 tablet by mouth once daily. - modafinil(PROVIGIL 200 MG TAB) Take (more content not included)... Normal [facility] CNOVon 04-26-2024 CNOV Office Visit (ORMDNA ) SYLVIE CHIU ([id number]) 1950 [facility] Date Time Provider Department 04/26/24 11:45 AM AFSANEH HANSEN During your visit today, we recorded the following information about you: Afsaneh Hansen PA-C 04/26/2024 12:04 PM Signed Afsaneh Hansen PA-C Department of Orthopaedics Orthopaedics [address] [address] Dept: [phone] April 26, 2024 CHIEF COMPLAINT: Post Op and Pain of the Left Hand. ASSESSMENT: G56.02 Carpal tunnel syndrome on left (primary encounter diagnosis) SUMMARY/PLAN: Patient presents 1 week and 3 days status post left carpal tunnel release. He is doing a little better, still complaining of some pain in the base of his thumb, numbness in the middle digit and some clicking in his wrist. We discussed proper hand washing, no soaking of the operative hand. No heavy lifting, pushing or pulling with the operative hand, encourage gentle motion. We discussed scar massage. Follow up as planned. Exam: Incision site is well approximated without erythema or drainage. Mild but appropriate edema without ecchymosis. Subjective numbness in the left thumb and middle digit. Imaging: Deferred today. Mr. Sylvie Chiu was advised as to contrast therapies and/or to take analgesics/anti-inflammator ies as needed and all contraindications were reviewed. Supporting Information Below: Medications: Current Outpatient Medications Medication Sig celecoxib (CELEBREX) 200 mg capsule Take 200 mg by mouth once daily. hydrOXYchloroQUINE (PLAQUENIL) 200 mg tablet Take 1 tablet by mouth once daily. ipratropium-albuterol (DUONEB) 0.5 mg-3 mg(2.5 mg base)/3 mL nebu Inhale 3 mL as instructed four times daily. tamsulosin (FLOMAX) 0.4 mg TAKE 2 CAPSULES BY MOUTH ONCE DAILY 30 MINUTES AFTER A MEAL furosemide (LASIX) 20 mg tablet Take 1 tablet by mouth once daily. acetaminophen (TYLENOL) 325 mg tablet Take 650 mg by mouth as needed. BIPAP ASV Adaptive Servo-Ventilation (ASV) with end-expiratory pressure (EEP) of 9 cmH2O and variable pressure support of 3-10 cmH2O. mask (pt pref), chin strap, heated tubing AND humidity, filters. Lifetime supplies. APRIL: G47.33. ALBUTEROL INHALATION Inhale 1 Inhalation as instructed as needed. hot humid weather lisinopril-hydrochlorothiaz narinder (PRINZIDE,ZESTORETIC) 20-12.5 mg per tablet Take 1 tablet by mouth once daily. modafinil(PROVIGIL 200 MG TAB) Take one(1) tablet daily in the morning. pantoprazole (PROTONIX) 40 mg ORAL TbEC Take one(1) tablet daily. BIPAP Please supply patient with Full face mask, Santana Milton VIP [phone]. iv contrast (will be provided with radiology test) MRI Prostate Inject, intravenously, once for 1 dose. No IV access, insert saline lock prior to the beginning of sedation, infusion, injection of imaging exam. Discontinue saline lock post exam. If Pt. has a central line or IVAD, may access for administration according to line specific nursing protocol. Once exam is complete flush line and de-access according to line specific nursing protocol in the MR contrast administration guidelines link. (Patient not taking: Reported on 04/26/2024) No current facility-administered medications for this visit. Allergies: Patient has no known allergies. This note was partially generated using [employer] voice recognition system, and there may be some incorrect words, spellings, and punctuation that were not noted in checking the note before saving. Afsaneh Hansen PA-C Referring Provider: LEE WAYNE [[id number]] Allergies As of Date: 04/26/2024 (No Known Allergies) Date Reviewed: 04/26/2024 Reviewed by: Reta Cody MA - Fully Assessed Reason for Visit: Post Op [174] Pain [78] Primary Visit Diagnosis:Carpal tunnel syndrome on left [G56.02] Prescriptions as of 04/26/2024 - celecoxib (CELEBREX) 200 mg capsule Take 200 mg by mouth once daily. - hydrOXYchloroQUINE (PLAQUENIL) 200 mg tablet Take 1 tablet by mouth once daily. - ipratropium-albuterol (DUONEB) 0.5 mg-3 mg(2.5 mg base)/3 mL nebu Inhale 3 mL as instructed four times daily. - tamsulosin (FLOMAX) 0.4 mg TAKE 2 CAPSULES BY MOUTH ONCE DAILY 30 MINUTES AFTER A MEAL - furosemide (LASIX) 20 mg tablet Take 1 tablet by mouth once daily. - iv contrast (will be provided with radiology test) MRI Prostate Inject, intravenously, once for 1 dose. No IV access, insert saline lock prior to the beginning of sedation, infusion, injection of imaging exam. Discontinue saline lock post exam. If Pt. has a central line or IVAD, may access for administration according to line specific nursing protocol. Once exam is complete flush line and de-access according to line specific nursing protocol in the MR contrast administration guidelines link. - acetaminophen (TYLENOL) 325 mg tablet Take 650 mg by mouth as needed. - BIPAP ASV Adap (more content not included)... Normal [facility] OPERATIVE NOon 04-15-2024 OPERATIVE NO HNO ID: [id number] Author: LEE WAYNE MD Service: Orthopaedic Surgery Author Type: Physician Type: Operative Report Filed: 04/21/2024 15:06 Note Text: OPERATIVE/PROCEDURE REPORT LOG ID: [id number] Surgery/Procedure Date: 04/15/2024 Incision/Procedure Start Time: 12:05 PM Incision Close/Procedure End Time: 12:54 PM Surgeon(s)/Proceduralist(s) and Cost Estimator(s): Surgeon(s) and Role: * Lee Wayne MD - Primary Physician Cost Estimator: Afsaneh Hansen PA-C Procedure(s): OPERATION: Left carpal tunnel release, open. ANESTHESIA: local. PREOPERATIVE DIAGNOSIS: Left carpal tunnel syndrome. POSTOPERATIVE DIAGNOSIS: Left carpal tunnel syndrome. OPERATIVE INDICATIONS: This is a pleasant 74 year old male who had worsening, numbness, and tingling. He declined nerve testing as he previously had testing and improvement on the right side after surgery. He exhausted conservative management and in the office, we discussed the risks, benefits, alternatives, and potential complications involving carpal tunnel release and he wished to pursue surgical intervention. OPERATIVE FINDINGS: Consistent with postoperative diagnosis. OPERATIVE PROCEDURE: On April 15, 2024, the patient was clearly identified in the preoperative area and marked accordingly on the Left palm by myself. In the preop area, Local anesthetic was provided at the palm and wrist with 1% lidocaine with 1:100,000 epinephrine for total of 15 mL. He was taken to the operative suite and placed in the supine position with an armboard on the Left. All other bony landmarks were appropriately padded in standard fashion. The arm was then sterilely prepped and draped in standard fashion. An appropriate time-out was conducted and all in the room were in agreement, signed consent form was on the chart. A longitudinal incision was made with in line with the third web space from 1 cm distal of the wrist crease to Parham's cardinal line. I used Dennis Rakes to retract the soft tissues. Bipolar electrocautery was used for hemostasis. I bluntly dissected down with Littler scissors to distal edge of the transverse carpal ligament until a flash of fat was noted. I directly divided distal edge of the transverse carpal ligament with a #15 blade. Attention was then focused on the proximal portion and I used Littler scissors to bluntly dissect off the volar surface of the transverse carpal ligament. He had an impressively thick TCL. His nerve was quite inflamed and purplish. A carpal tunnel and median nerve protection guide was slid directly under the ligament for dilation and a second time for appropriate positioning, this was passed freely without any resistance. Subsequently, I selected a mini meniscotome [place] blade and slid this in the protective guide, completely dividing the transverse carpal ligament. Dennis rakes were used to view up the wound to visualize for complete release and a Loco elevator was used to palpate for complete release. hemostasis was observed. Unfortunately, at this time the patient had an uncontrollable urge to urinate due to his prior radiation, etc. And was significantly uncomfortable. I place a sterile bandage and we maintained his sterility on the left hand/drape, while nursing assisted him with the urinal. I then cleaned the wound again with a hibiclens wash to be on the safe side. The wound was copiously irrigated with normal saline and I closed with 3-0 nylons in horizontal mattress fashion for a total of 6. Xeroform gauze, sterile 4 x 4 gauze, Webril padding, and a Bias roll was used for final bandage. There were no complications during the procedure. The patient was safely transferred to the Postanesthetic Care Unit in stable condition. I performed the entire procedure. SIGNATURE: Lee Wayne MD PATIENT NAME: Sylvie Chiu DATE: April 15, 2024 MRN: [id number] TIME: 1:16 PM PAGER/CONTACT #: [facility] XR Wrist - left PA and Later al and Obliqueon 04-01-2024 IMPRESSION: Bone demineralization and degenerative changes with possible scapholunate dissociation Manager Urgent Care: [facility] Transcribe Date/Time: Apr 01 2024 7:48A Dictated by : ISAEL MAGAÑA MD This examination was interpreted and the report reviewed and electronically signed by: ISAEL MAGAÑA MD on Apr 01 2024 7:49AM EST [facility] * * *Final Report* * * DATE OF EXAM: Mar 29 2024 10:03AM MDO 5270 - XR WRIST 3V PA/LAT/OBL LT / PROCEDURE REASON: [id number] * * * * Physician Interpretation * * * * PROCEDURE: Left wrist INDICATION: Pain .left wrist pain TECHNIQUE: XR WRIST 3V PA/LAT/OBL LT COMPARISON: None FINDINGS: Advanced osteopenia/osteoporosis. 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 Borderline widening of the scapholunate interval. No acute fracture. [facility] Provider, Jesus Riley - 04/01/2024 * * *Final Report* * * DATE OF EXAM: Mar 29 2024 10:03AM MDO 5270 - XR WRIST 3V PA/LAT/OBL LT / PROCEDURE REASON: [id number] * * * * Physician Interpretation * * * * PROCEDURE: Left wrist INDICATION: Pain .left wrist pain TECHNIQUE: XR WRIST 3V PA/LAT/OBL LT COMPARISON: None FINDINGS: Advanced osteopenia/osteoporosis. 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 Borderline widening of the scapholunate interval. No acute fracture. 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 Manager Urgent Care: [facility] Transcribe Date/Time: Apr 01 2024 7:48A Dictated by : ISAEL MAGAÑA MD This examination was interpreted and the report reviewed and electronically signed by: ISAEL MAGAÑA MD on Apr 01 2024 7:49AM EST [facility] XR Wrist - left PA and Later al and ObliqueOrdered By: [facility] Provider on 04-01-2024 [facility] CNCOon 03-30-2024 CNCO Letter Text Normal [facility] CNOVon 03-29-2024 CNOV Office Visit (ORMDNA ) SYLVIE CHIU ([id number]) 1950 [facility] Date Time Provider Department 03/29/24 11:00 AM LEE WAYNE During your visit today, we recorded the following information about you: Lee Wayne MD 04/04/2024 12:35 PM Signed Lee Wayne MD Department of Orthopaedics Orthopaedics [address] [place] [address] Dept: [phone] March 29, 2024 CHIEF COMPLAINT: New and Pain of the Left Hand HPI Patient here today for left hand/wrist pain. 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 He is right hand dominant. Ultrasound completed on 02/01/2024. ASSESSMENT: G56.02 Carpal tunnel syndrome of left wrist (primary encounter diagnosis) PLAN: We reviewed the risks, benefits, alternatives and potential complications involving both operative and nonoperative treatment. A number of years ago, he successfully underwent right-sided carpal tunnel surgery and was pleased. He is having similar symptoms on the left and does not wish to get an updated nerve test which I think is fine. Will get him scheduled for his left side at his convenience. FOLLOW UP INSTRUCTIONS: As above OBJECTIVE: Mr. Sylvie Chiu is a pleasant 74 year old in no apparent distress. Gen:There were no vitals taken for this visit. nl development, obese, no deformities ENT: Normocephalic, normal hearing, moist mucosa CV: Pulses:Radial= 2+ and symmetric, capillary refill < 2 secs, no peripheral edema/varicosities Skin: no rash, bruising or lesions. Good turgor. Psych: cooperative and appropriate, alert and oriented x 3, good mood and affect. Musculoskeletal: Cervical spine has supple range of motion and no tenderness to palpation, Spurling's sign negative. Shoulders and elbows have full range of motion. Negative Tinel's over the cubital tunnel, no subluxation of ulnar nerve at the elbow with flexion. Negative Tinel's over Guyon's canal. Inspection reveals no thenar atrophy. Diminished sensation to light touch in the radial 3 digits. Sensation intact in the ulnar 2 digits with out intrinsic atrophy/weakness. Positive Tinel's at the wrist, positive carpal tunnel compression testing on the left. No locking or catching of the digits. No tenderness to palpation or masses noted in the forearm or hand. 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 Itraconazole AND Prednisone History of anal fissures Obesity APRIL (obstructive sleep apnea) 02/2007 Pain in joint, multiple sites Prostate cancer (HCC) Unspecified essential hypertension Unspecified glaucoma(365.9) Past Surgical History: PAST SURGICAL HISTORY Procedure Laterality Date ANKLE SURGERY HX Left left ankle fracture and piece of metal removed ARTHRP KNE CONDYLEANDPLATU MEDIALANDLAT COMPARTMENTS Right 06/30/2018 Knee replacement, total BRONCHOSCOPY 09/17/2006 COLONOSCOPY 04/2016 MEDIASTINOSCOPY 10/02/2006 histoplasmosis NEUROPLASTY AND/TRANSPOS MEDIAN NRV CARPAL TUNNE Right 11/28/2015 Carpal tunnel decomp PAST SURGICAL HISTORY OF lasik bilat.; 5 ops R eye and now blind R REMOVAL OF ANAL FISSURE ROTATOR CUFF REPAIR Right ROTATOR CUFF REPAIR Left TONSILLECTOMY AND ADENOIDECTOMY VASECTOMY UNI/BI SPX W/POSTOP SEMEN EXAMS Family History: FAMILY HISTORY Problem Relation Age of Onset Colon Cancer Father mgf other (hyperchol) Father other (cva) Father pgf, mgm other (heart dis) Father pgm Prostate Cancer Maternal Grandfather Social History: Social History Tobacco Use Smoking status: Former Packs/day: 1.00 Years: 20.00 Additional pack years: 0.00 Total pack years: 20.00 Types: Cigarettes Smokeless tobacco: Never Tobacco comments: quit over 35 yrs ago Vaping Use Vaping Use: Never used Substance Use Topics Alcohol use: Yes Alcohol/week: 2.0 - 3.0 standard drinks of alcohol Types: 2 - 3 Cans of Beer (12oz) per week Drug use: No Medications: Current Outpatient Medications Medication Sig celecoxib (CELEBREX) 200 mg capsule Take 200 mg by mouth once daily. hydrOXYchloroQUINE (PLAQUENIL) 200 mg tablet Take 1 tablet by mouth once daily. ipratropium-albuterol (DUONEB) 0.5 mg-3 mg(2.5 mg base)/3 mL nebu Inhale 3 mL as instructed four times daily. tamsulosin (FLOMAX) 0.4 mg TAKE 2 CAPSULES BY MOUTH ONCE DAILY 30 MINUTES AFTER A MEAL furosemide (LASIX) 20 mg tablet Take 1 tablet by mouth once daily. acetaminophen (TYLENOL) 325 mg tablet Take 650 mg by mouth as needed. ALBUTEROL INHALATION Inhale 1 Inhalation as instructed as needed. hot humid weather lisinopril-hydrochlorothiaz narinder (PRINZIDE,ZESTORETIC) 20-12.5 mg per tablet Take 1 tablet by mouth once daily. (more content not included)... Normal [facility]29[facility]20[facility] SYLVIE CHIU ([id number]) 1950 [facility] Date Time Provider Department 03/29/24 LEE WAYNE During your visit today, we recorded the following information about you: Chantale Abdul MA 03/29/2024 2:04 PM Signed Surgical request completed for left CTR at [facility] on 04/15/2024 with local anesthesia. Chantale Abdul MA 03/30/2024 10:53 AM Signed Surgery has been scheduled as requested. Post op appointments have been scheduled and mailed to the patient. Allergies As of Date: 03/29/2024 (No Known Allergies) Date Reviewed: 03/29/2024 Reviewed by: Chantale Abdul MA - Fully Assessed Reason for Visit: Schedule Surgery [1330] Primary Visit Diagnosis:Carpal tunnel syndrome on left [G56.02] Order(s):SURGICAL REQUEST - ELECTIVE (04/2020) [[id number]] Order #: [id number]: 1 Prescriptions as of 03/30/2024 - celecoxib (CELEBREX) 200 mg capsule Take 200 mg by mouth once daily. - hydrOXYchloroQUINE (PLAQUENIL) 200 mg tablet Take 1 tablet by mouth once daily. - ipratropium-albuterol (DUONEB) 0.5 mg-3 mg(2.5 mg base)/3 mL nebu Inhale 3 mL as instructed four times daily. - tamsulosin (FLOMAX) 0.4 mg TAKE 2 CAPSULES BY MOUTH ONCE DAILY 30 MINUTES AFTER A MEAL - furosemide (LASIX) 20 mg tablet Take 1 tablet by mouth once daily. - iv contrast (will be provided with radiology test) MRI Prostate Inject, intravenously, once for 1 dose. No IV access, insert saline lock prior to the beginning of sedation, infusion, injection of imaging exam. Discontinue saline lock post exam. If Pt. has a central line or IVAD, may access for administration according to line specific nursing protocol. Once exam is complete flush line and de-access according to line specific nursing protocol in the MR contrast administration guidelines link. - acetaminophen (TYLENOL) 325 mg tablet Take 650 mg by mouth as needed. - BIPAP ASV Adaptive Servo-Ventilation (ASV) with end-expiratory pressure (EEP) of 9 cmH2O and variable pressure support of 3-10 cmH2O. mask (pt pref), chin strap, heated tubing AND humidity, filters. Lifetime supplies. APRIL: G47.33. - ALBUTEROL INHALATION Inhale 1 Inhalation as instructed as needed. hot humid weather - lisinopril-hydrochlorothiaz narinder (PRINZIDE,ZESTORETIC) 20-12.5 mg per tablet Take 1 tablet by mouth once daily. - modafinil(PROVIGIL 200 MG TAB) Take one(1) tablet daily in the morning. - pantoprazole (PROTONIX) 40 mg ORAL TbEC Take one(1) tablet daily. - BIPAP Please supply patient with Full face mask, Santana Rose VIP [phone]. 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] 05/31/2015 11/14/2015 Trigeminal neuralgia of right side of face [G50*05/31/2015 11/14/2015 Hemicrania continua [G44.51] 08/10/2015 11/14/2015 Carpal tunnel syndrome of right wrist [G56.01] 11/14/2015 Essential hypertension [I10] 11/14/2015 APRIL treated with BiPAP [G47.33] 11/14/2015 Gastroesophageal reflux disease without esophag*11/14/2015 Class 2 obesity with body mass index (BMI) of 3*11/14/2015 Cataract, nuclear sclerotic senile [H25.10] 04/03/2016 History of radial keratotomy [Z98.890] 04/03/2016 Hereditary and idiopathic peripheral neuropathy*04/29/2016 Fissure in ano [K60.2] 07/14/2016 LGI bleed [K92.2] 07/14/2016 Fever [R50.9] 10/29/2016 11/02/2016 Pneumonia [J18.9] 10/31/2016 06/23/2018 Primary osteoarthritis of right knee [M17.11] 06/01/2018 Primary localized osteoarthritis of right knee *06/08/2018 07/01/2018 Varicose veins of both lower extremities [I83.9*06/23/2018 S/P total knee replacement [Z96.659] 06/30/2018 Chronic pain of right knee [M25.561, G89.29] 07/28/2018 BMI 40.0-44.9, adult (HCC) [Z68.41] 10/01/2018 Prostate cancer (HCC) [C61] 08/11/2022 Left leg swelling [M79.89] 12/02/2022 Peripheral vascular disease (HCC) [I73.9] 02/09/2023 Encounter Status:Closed by CHANTALE ABDUL on 03/30/24 Normal [facility] XR WRIST 3V PA/LAT/OBL LTon 03-29-2024 XR WRIST 3V PA/LAT/OBL LT * * *Final Report* * * DATE OF EXAM: Mar 29 2024 10:03AM MANUEL 5270 - XR WRIST 3V PA/LAT/OBL LT / PROCEDURE REASON: [id number] * * * * Physician Interpretation * * * * PROCEDURE: Left wrist INDICATION: Pain .left wrist pain TECHNIQUE: XR WRIST 3V PA/LAT/OBL LT COMPARISON: None FINDINGS: Advanced osteopenia/osteoporosis. 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 Borderline widening of the scapholunate interval. No acute fracture. IMPRESSION: Bone demineralization and degenerative changes with possible scapholunate dissociation Manager Urgent Care: [facility] Transcribe Date/Time: Apr 01 2024 7:48A Dictated by : ISAEL MAGAÑA MD This examination was interpreted and the report reviewed and electronically signed by: ISAEL MAGAÑA MD on Apr 01 2024 7:49AM EST [id number] Normal [facility] XR Wrist - left PA and Later al and Obliqueon 03-29-2024 Radiology Study observation (narrative) [facility] CBC W/Diff, Automatedon 06-0 Absolute Lymph 1.17 X10 3/uL Normal 0.83-4.51 [facility] Comment on above: Performed By: #### L 500.4100, L500.4050, L100.0100 #### [facility] [address] [place], [address] Absolute Neut 3.5 X10 3/uL Normal 2.0-7.7 [facility] Comment on above: Performed By: #### L 500.4100, L500.4050, L100.0100 #### [facility] [address] [place], [address] Basophils/100 WBC (Bld) 0.8 % Normal 0-1 [facility] Comment on above: Performed By: #### L 500.4100, L500.4050, L100.0100 #### [facility] [address] [place], [address] Eosinophils/100 WBC (Bld) 1.5 % Normal 0-5 [facility] Comment on above: Performed By: #### L 500.4100, L500.4050, L100.0100 #### [facility] [address] [place], [address] Erythrocyte distribution width (RBC) [Ratio] 13.4 % Normal 11.6-14.6 [facility] Comment on above: Performed By: #### L 500.4100, L500.4050, L100.0100 #### [facility] [address] [place], [address] Hematocrit (Bld) [Volume fraction] 42.6 % Normal 40-54 [facility] Comment on above: Performed By: #### L 500.4100, L500.4050, L100.0100 #### [facility] [address] [place], [address] Hemoglobin (Bld) [Mass/Vol] 13.8 g/dL Normal 13.0-16.5 [facility] Comment on above: Performed By: #### L 500.4100, L500.4050, L100.0100 #### [facility] [address] [place], [address] IG% 0.200 Normal 0.0-0.9 [facility] Comment on above: Result Comment: IG% - Immature Granulocytes (promyelocytes, myelocytes and metamyelocytes) > 1% indicates that a LEFT SHIFT is Present. Performed By: #### L 500.4100, L500.4050, L100.0100 #### [facility] [address] [place], [address] Lymphocytes/100 WBC (Bld) 22.6 % Normal 19-41 [facility] Comment on above: Performed By: #### L 500.4100, L500.4050, L100.0100 #### [facility] [address] [place], [address] MCH (RBC) [Entitic mass] 30.5 pg Normal 27.0-32.0 [facility] Comment on above: Performed By: #### L 500.4100, L500.4050, L100.0100 #### [facility] [address] [place], [address] MCHC (RBC) [Mass/Vol] 32.4 g/dL Normal 32-36 [facility] Comment on above: Performed By: #### L 500.4100, L500.4050, L100.0100 #### [facility] [address] [place], [address] MCV (RBC) [Entitic vol] 94.0 fL Normal 80-94 [facility] Comment on above: Performed By: #### L 500.4100, L500.4050, L100.0100 #### [facility] [address] [place], [address] Monocytes/100 WBC (Bld) 6.8 % Normal 0-10 [facility] Comment on above: Performed By: #### L 500.4100, L500.4050, L100.0100 #### [facility] [address] [place], [address] Neutrophils/100 WBC (Bld) 68.1 % Normal 47-70 [facility] Comment on above: Performed By: #### L 500.4100, L500.4050, L100.0100 #### [facility] [address] [place], [address] Nucleated RBC (Bld) [#/Vol] 0 10*3/uL Normal 0-5 [facility] Comment on above: Performed By: #### L 500.4100, L500.4050, L100.0100 #### [facility] [address] [place], [address] Platelet mean volume (Bld) [Entitic vol] 11.8 fL Normal 6.2-12.0 [facility] Comment on above: Performed By: #### L 500.4100, L500.4050, L100.0100 #### [facility] [address] [place], [address] Platelets (Bld) [#/Vol] 132 10*3/uL Low 150-450 [facility] Comment on above: Performed By: #### L 500.4100, L500.4050, L100.0100 #### [facility] [address] [place], [address] RBC (Bld) [#/Vol] 4.53 10*6/uL Low 4.6-6.2 [facility] Comment on above: Performed By: #### L 500.4100, L500.4050, L100.0100 #### [facility] [address] [place], [address] RDW SD 46.3 fl High 35.1-43.9 [facility] Comment on above: Performed By: #### L 500.4100, L500.4050, L100.0100 #### [facility] [address] [place], [address] WBC (Bld) [#/Vol] 5.2 10*3/uL Normal 4.4-11.0 [facility] Comment on above: Performed By: #### L 500.4100, L500.4050, L100.0100 #### [facility] [address] [place], [address] Comprehensive Metabolic Prof [facility] 03-01-2024 Albumin [Mass/Vol] 4.3 g/dL Normal 3.2-5.0 [facility] Comment on above: Performed By: #### L 500.4100, L500.4050, L100.0100 #### [facility] [address] [place], [address] Albumin/Globulin [Mass ratio] 1.2 {ratio} Normal 0.9-2.4 [facility] Comment on above: Performed By: #### L 500.4100, L500.4050, L100.0100 #### [facility] [address] [place], [address] ALK P 120 U/L High 45-117 [facility] Comment on above: Performed By: #### L 500.4100, L500.4050, L100.0100 #### [facility] [address] [place], [address] ALT [Catalytic activity/Vol] 22 U/L Normal 16-61 [facility] Comment on above: Performed By: #### L 500.4100, L500.4050, L100.0100 #### [facility] [address] [place], [address] AST [Catalytic activity/Vol] 17 U/L Normal 15-37 [facility] Comment on above: Performed By: #### L 500.4100, L500.4050, L100.0100 #### [facility] [address] [place], [address] Bilirubin [Mass/Vol] 0.80 mg/dL Normal 0.20-1.00 [facility] Comment on above: Result Comment: For patients on eltrombopag therapy, use of Dimension [place] TBIL is not recommended. Performed By: #### L 500.4100, L500.4050, L100.0100 #### [facility] [address] [place], [address] BUN/CRE 20.4 RATIO High 10-20 [facility] Comment on above: Performed By: #### L 500.4100, L500.4050, L100.0100 #### [facility] [address] [place], [address] CA,Total 9.8 mg/dL Normal 8.5-10.1 [facility] Comment on above: Performed By: #### L 500.4100, L500.4050, L100.0100 #### [facility] [address] [place], [address] Chloride [Moles/Vol] 105 mmol/L Normal 98-107 [facility] Comment on above: Performed By: #### L 500.4100, L500.4050, L100.0100 #### [facility] [address] [place], [address] CO2 [Moles/Vol] 25.0 mmol/L Normal 21.0-32.0 [facility] Comment on above: Performed By: #### L 500.4100, L500.4050, L100.0100 #### [facility] [address] [place], [address] Creatinine [Mass/Vol] 1.08 mg/dL Normal 0.70-1.30 [facility] Comment on above: Result Comment: The validity of the calculated GFR GFRAA in patients over 70 years has not been determined. Clinical correlation is essential. Performed By: #### L 500.4100, L500.4050, L100.0100 #### [facility] [address] [place], [address] EST GFR - AA 86 mL/min Normal >60 [facility] Comment on above: Result Comment: Afri can Micronesian GFR Calc Performed By: #### L 500.4100, L500.4050, L100.0100 #### [facility] [address] [place], [address] GAP 6 Normal 5-15 [facility] Comment on above: Performed By: #### L 500.4100, L500.4050, L100.0100 #### [facility] [address] [place], [address] GFR/1.73 sq M.predicted among non-blacks MDRD (S/P/Bld) [Vol rate/Area] 71 mL/min/{1.73_m2} Normal >60 [facility] Comment on above: Result Comment: Non- GFR Calc Performed By: #### L 500.4100, L500.4050, L100.0100 #### [facility] [address] [place], [address] Globulin (S) [Mass/Vol] 3.5 g/dL Normal 2.2-4.2 [facility] Comment on above: Performed By: #### L 500.4100, L500.4050, L100.0100 #### [facility] [address] [place], [address] Glucose [Mass/Vol] 92 mg/dL Normal 74-106 [facility] Comment on above: Performed By: #### L 500.4100, L500.4050, L100.0100 #### [facility] [address] [place], [address] Potassium [Moles/Vol] 3.8 mmol/L Normal 3.5-5.1 [facility] Comment on above: Performed By: #### L 500.4100, L500.4050, L100.0100 #### [facility] [address] [place], [address] Sodium [Moles/Vol] 136 mmol/L Normal 136-145 [facility] Comment on above: Performed By: #### L 500.4100, L500.4050, L100.0100 #### [facility] [address] [place], [address] T PROT 7.8 g/dL Normal 6.4-8.2 [facility] Comment on above: Performed By: #### L 500.4100, L500.4050, L100.0100 #### [facility] [address] [place], [address] Urea nitrogen [Mass/Vol] 22 mg/dL High 7-18 [facility] Comment on above: Performed By: #### L 500.4100, L500.4050, L100.0100 #### [facility] [address] [place], [address] Lipid Profileon 03-01-2024 Cholesterol [Mass/Vol] 159 mg/dL Normal 200 [facility] Comment on above: Result Comment: <200 mg/dL Desirable 200-240 mg/dL Borderline >240 mg/dL High Risk Performed By: #### L 500.4100, L500.4050, L100.0100 #### [facility] [address] [place], [address] Cholesterol in HDL [Mass/Vol] 45 mg/dL Normal [facility] Comment on above: Result Comment: The drugs N-Acetylcysteine and Metamizole may falsely depress this assay. Reference Range HDL <40 mg/dL Low HDL Cholesterol HDL >or= 60 mg/dL High HDL Cholesterol Performed By: #### L 500.4100, L500.4050, L100.0100 #### [facility] [address] [place], [address] Cholesterol in LDL [Mass/Vol] 99 mg/dL Normal 0-130 [facility] Comment on above: Performed By: #### L 500.4100, L500.4050, L100.0100 #### [facility] [address] [place], [address] Cholesterol in VLDL [Mass/Vol] 15 mg/dL Normal 5-40 [facility] Comment on above: Performed By: #### L 500.4100, L500.4050, L100.0100 #### [facility] [address] [place], [address] Triglyceride [Mass/Vol] 74 mg/dL Normal [facility] Comment on above: Result Comment: The drugs N-Acetylcysteine and Metamizole may falsely depress this assay. Serum Triglycerides Reference Interval Normal <150 mg/dL Borderline high 150 - 199 mg/dL High 200 - 499 mg/dL Very High > or = 500 mg/dL Performed By: #### L 500.4100, L500.4050, L100.0100 #### [facility] [address] [place], [address] CNOVon 02-19-2024 CNOV Office Visit (URFMOB ) ARAMSYLVIE Eyal ([id number]) 1950 [facility] Date Time Provider Department 02/19/24 3:00 PM SELWYN MICHELLE During your visit today, we recorded the following information about you: Ruth Quiñones MA 02/19/2024 2:44 PM Signed UNIVERSAL PROTOCOL / SAFETY CHECKLIST Procedure to be Performed: cystoscopy Sign In: A Moment of CARE was completed. Personnel directly involved with the procedure wore the appropriate PPE (Personal Protective Equipment). Special equipment: cystoscope Patient/Surrogate Stated/Verified: PATIENT VERIFIED(optional for EMERGENT procedures): Patient name, Date of , Relevant allergies, and The intended procedure Time Out Communication: Intended patient and procedure match the source documents. Consent documented and matches the intended procedure. Relevant labs, photos, and/or imaging studies have been reviewed. Correct side/site marked and visible. Medications required for procedure verified. Fire risk assessed and interventions discussed. No implant(s) inserted. Sign Out: SIGN OUT (optional for EMERGENT procedures): No specimen collected. All instruments, equipment, possible retained foreign bodies accounted for. Post-procedure follow-up management communicated and Plan of Care Visit completed when applicable. Ruth Quiñones MA PRE PROCEDURE ASSESSMENT- Cysto Procedure Indication: Cystoscopy Latex Allergy: No Allergies reviewed and updated. Yes Pre-Procedure Vital Signs: BP: 144/78 Pulse: 61 Heart valve replacement: No Joint replacement: Yes Back Office UA otained: yes PROCEDURE PREP-Cysto Patient ID with two(2)identifiers verified by: Ruth Quiñones MA Pre-Procedure Antibiotics: Bactrim DS 160mg-800mg orally, given during visit @ 1408 , by Ruth Quiñones MA Patient Prep: Betadine Scrub to perineum and placement of Sterile Drape. COMPLETED Anesthetic Given:10 cc 2% Lidocaine jelly and Administered by MD - see Procedure Physician Note. Ruth Quiñones MA UNIVERSAL PROTOCOL / SAFETY CHECKLIST Procedure to be performed: Cystoscopy Sign in Communication: Completed Time Out: Team Confirms the Correct Patient, Correct Procedure, Correct Site and Site Marking, Correct Position (if applicable). Sign Out Discussion: Completed Ruth Quiñones MA POST PROCEDURE NURSE ASSESSMENT Present along with physician during procedure exam. Ruth Quiñones MA Instruction sheet given and reviewed and patient verbalizes understanding: yes Post Procedure Antibiotic: none Current pain intensity is 0 on a 0-10 pain scale. Ruth Quiñones MA AMBULATORY PATIENT EDUCATION THE FOLLOWING WAS EVALUATED Motivation To Learn: Interested Family/Significant Other Support: Unable to assess - Family not present Cognitive Ability: Alert/Oriented Method of Instruction: Individual instruction Written instruction/Handouts Verbal instruction The Following Influencing Factors Were Barriers To This Education Session: None The Following Physical Limitations Were Barriers To This Education Session: None Instruction Provided To: Patient Staking Technician Present: not applicable Discipline: Nursing Learning Topic: SURVIVAL SKILLS: Complication Prevention Symptom Management Patient Evaluation: Verbalizes understanding: Yes Supplemental Material Given: Written Material Instructed By Ruth Quiñones MA In Department Urology . 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 Has had dysuria and incomplete bladder emptying and was placed on Flomax 0.4 mg which he takes twice daily. Has been having this recently. He has pressure and discomfort in the perineum. Presents today for cystoscopy to rule out urethral stricture. He reports intermittent pain from radiation. Treated with: - Leuprolide 22.5 mg inj 12/13/22, 12/09/22 - Radiation therapy 11/06/22 - 12/15/22 [7000 cGy/6600 cGy/5040 cGy/28 fx to prostate/SVs/pelvic lymph nodes] Decipher test high-risk - 0.98 PSMA-PET negative for bone/LN metastasis PATHOLOGY: FINAL DIAGNOSIS A. Prostate, left base, biopsy: - Benign fibromuscular stroma; no prostatic glands are present. B. Prostate, left mid, biopsy: - Prostatic adenocarcinoma, Bruce score 3+3=6, grade group 1, involving 1 of 1 core (4 mm, 65%). C. Prostate, left apex, biopsy: - Prostatic adenocarcinoma, Bruce score 3+3=6, grade group 1, involving 1 of 1 core (1 mm, 25%). D. Prostate, left lateral base, biopsy: - Prostatic adenocarcinoma, Bruce score 3+4=7, grade group 2, involving 1 of 1 core (6 mm, 85%). - Samantha ibrahima (more content not included)... Normal [facility] UA DIP, URINE (POC)on 2023 BILIRUBIN UA (POCT) Negative Negative [facility] CLARITY UA (POCT) Clear [facility] COLOR UA (POCT) Yellow [facility] GLUCOSE UA (POCT) Negative Negative mg/dL [facility] Hemoglobin Ql (U) Negative Negative [facility] [facility] KETONE UA (POCT) Negative Negative mg/dL [facility] LEUKOCYTES UA (POCT) Negative Negative [facility] NITRITE UA (POCT) Negative Negative [facility] PH UA (POCT) 6.5 4.5 - 8.0 [facility] Protein Ql (U) Negative Negative mg/dL [facility] SPECIFIC GRAVITY UA (POCT) 1.020 1.005 - 1.030 [facility] UROBILINOGEN UA (POCT) 0.2 Normal E.U./dL [facility] Location:[facility], [address] [place], [place], [address] [place] [address] POINT OF CARE [facility] No Panel Informationon 01-31 IMPRESSION: Scattered active synovitis in the hands and wrists. No tenosynovitis in the hands or wrists. Manager Urgent Care: SAMANTHA Transcribe Date/Time: Feb 01 2024 9:55A Dictated by : TIERRA COKER MD This examination was interpreted and the report reviewed and electronically signed by: TIERRA COKER MD on Feb 01 2024 2:43PM [facility] DIVISION OF RADIOLOGY Radiology Study observation (narrative) [facility] No Panel InformationOrdered By: Ccf Provider on 02-01-2024 [facility] US Upper extremity - lefton 02-01-2024 * * *Final Report* * * DATE OF EXAM: Feb 01 2024 9:48AM AFU 1198 - US HAND/WRIST SYNOVIAL SCREEN LT / PROCEDURE REASON: Pain in joint, multiple sites * * * * Physician Interpretation * * * * MSK_US SYNOVITIS SCREENING ULTRASOUND OF THE HANDS AND WRISTS: CLINICAL INFORMATION: Pain in joint, multiple sites TECHNIQUE: Hay-scale, real-time ultrasound of both the right and left hand and wrist synovium and tenosynovium was performed with power Doppler examination. Images were saved to the permanent image archive. -2019 COMPARISON: X-ray: 02/05/2023 FINDINGS: RIGHT SIDE: RIGHT MCP AND PIP JOINT SYNOVIUM: 2ND MCP: Hypertrophy: Moderate. Power Doppler: Moderate. 2ND PIP: Hypertrophy: Moderate. Power Doppler: Minimal. 3RD MCP: Hypertrophy: Moderate. Power Doppler: Minimal. 3RD PIP: Hypertrophy: Moderate. Power Doppler: Moderate. 4TH MCP: Hypertrophy: None. Power Doppler: None. 4TH PIP: Hypertrophy: None. Power Doppler: None. 5TH MCP: Hypertrophy: Minimal. Power Doppler: Minimal. 5TH PIP: Hypertrophy: None. Power Doppler: None. RIGHT EXTENSOR AND FLEXOR TENOSYNOVIUM: 2ND Digit Flexor: Hypertrophy: None. Power Doppler: None. 2ND Digit Extensor: Hypertrophy: None. Power Doppler: None. 3RD Digit Flexor: Hypertrophy: None. Power Doppler: None. 3RD Digit Extensor: Hypertrophy: None. Power Doppler: None. 4TH Digit Flexor: Hypertrophy: None. Power Doppler: None. 4TH Digit Extensor: Hypertrophy: None. Power Doppler: None. 5TH Digit Flexor: Hypertrophy: None. Power Doppler: None. 5TH Digit Extensor: Hypertrophy: None. Power Doppler: None. CARPUS Synovitis: Hypertrophy: Minimal. Power Doppler: None. OTHER: None. LEFT SIDE: LEFT MCP AND PIP JOINT SYNOVIUM: 2ND MCP: Hypertrophy: Moderate. Power Doppler: Minimal. 2ND PIP: Hypertrophy: Minimal. Power Doppler: Minimal. 3RD MCP: Hypertrophy: Minimal. Power Doppler: Minimal. 3RD PIP: Hypertrophy: Moderate. Power Doppler: None. 4TH MCP: Hypertrophy: None. Power Doppler: None. 4TH PIP: Hypertrophy: None. Power Doppler: None. 5TH MCP: Hypertrophy: Minimal. Power Doppler: Minimal. 5TH PIP: Hypertrophy: None. Power Doppler: None. LEFT EXTENSOR AND FLEXOR TENOSYNOVIUM: 2ND Digit Flexor: Hypertrophy: None. Power Doppler: None. 2ND Digit Extensor: Hypertrophy: None. Power Doppler: None. 3RD Digit Flexor: Hypertrophy: None. Power Doppler: None. 3RD Digit Extensor: Hypertrophy: None. Power Doppler: None. 4TH Digit Flexor: Hypertrophy: None. Power Doppler: None. 4TH Digit Extensor: Hypertrophy: None. Power Doppler: None. 5TH Digit Flexor: Hypertrophy: None. Power Doppler: None. 5TH Digit Extensor: Hypertrophy: None. Power Doppler: None. CARPUS Synovitis: Hypertrophy: Moderate. Power Doppler: Moderate in the radiocarpal joint. OTHER: None. DIVISION OF RADIOLOGY Provider, [facility] - 02/01/2024 * * *Final Report* * * DATE OF EXAM: Feb 01 2024 9:48AM AFU 1198 - US HAND/WRIST SYNOVIAL SCREEN LT / PROCEDURE REASON: Pain in joint, multiple sites * * * * Physician Interpretation * * * * MSK_US SYNOVITIS SCREENING ULTRASOUND OF THE HANDS AND WRISTS: CLINICAL INFORMATION: Pain in joint, multiple sites TECHNIQUE: Hay-scale, real-time ultrasound of both the right and left hand and wrist synovium and tenosynovium was performed with power Doppler examination. Images were saved to the permanent image archive. -2019 COMPARISON: X-ray: 02/05/2023 FINDINGS: RIGHT SIDE: RIGHT MCP AND PIP JOINT SYNOVIUM: 2ND MCP: Hypertrophy: Moderate. Power Doppler: Moderate. 2ND PIP: Hypertrophy: Moderate. Power Doppler: Minimal. 3RD MCP: Hypertrophy: Moderate. Power Doppler: Minimal. 3RD PIP: Hypertrophy: Moderate. Power Doppler: Moderate. 4TH MCP: Hypertrophy: None. Power Doppler: None. 4TH PIP: Hypertrophy: None. Power Doppler: None. 5TH MCP: Hypertrophy: Minimal. Power Doppler: Minimal. 5TH PIP: Hypertrophy: None. Power Doppler: None. RIGHT EXTENSOR AND FLEXOR TENOSYNOVIUM: 2ND Digit Flexor: Hypertrophy: None. Power Doppler: None. 2ND Digit Extensor: Hypertrophy: None. Power Doppler: None. 3RD Digit Flexor: Hypertrophy: None. Power Doppler: None. 3RD Digit Extensor: Hypertrophy: None. Power Doppler: None. 4TH Digit Flexor: Hypertrophy: None. Power Doppler: None. 4TH Digit Extensor: Hypertrophy: None. Power Doppler: None. 5TH Digit Flexor: Hypertrophy: None. Power Doppler: None. 5TH Digit Extensor: Hypertrophy: None. Power Doppler: None. CARPUS Synovitis: Hypertrophy: Minimal. Power Doppler: None. OTHER: None. LEFT SIDE: LEFT MCP AND PIP JOINT SYNOVIUM: 2ND MCP: Hypertrophy: Moderate. Power Doppler: Minimal. 2ND PIP: Hypertrophy: Minimal. Power Doppler: Minimal. 3RD MCP: Hypertrophy: Minimal. Power Doppler: Minimal. 3RD PIP: Hypertrophy: Moderate. Power Doppler: None. 4TH MCP: Hypertrophy: None. Power Doppler: None. 4TH PIP: Hypertrophy: None. Power Doppler: None. 5TH MCP: Hypertrophy: Minimal. Power Doppler: Minimal. 5TH PIP: Hypertrophy: None. Power Doppler: None. LEFT EXTENSOR AND FLEXOR TENOSYNOVIUM: 2ND Digit Flexor: Hypertrophy: None. Power Doppler: None. 2ND Digit Extensor: Hypertrophy: None. Power Doppler: None. 3RD Digit Flexor: Hypertrophy: None. Power Doppler: None. 3RD Digit Extensor: Hypertrophy: None. Power Doppler: None. 4TH Digit Flexor: Hypertrophy: None. Power Doppler: None. 4TH Digit Extensor: Hypertrophy: None. Power Doppler: None. 5TH Digit Flexor: Hypertrophy: None. Power Doppler: None. 5TH Digit Extensor: Hypertrophy: None. Power Doppler: None. CARPUS Synovitis: Hypertrophy: Moderate. Power Doppler: Moderate in the radiocarpal joint. OTHER: None. IMPRESSION IMPRESSION: Scattered active synovitis in the hands and wrists. No tenosynovitis in the hands or wrists. Manager Urgent Care: [facility] Transcribe Date/Time: Feb 01 2024 9:55A Dictated by : TIERRA COKER MD This examination was interpreted and the report reviewed and electronically signed by: TIERRA COKER MD on Feb 01 2024 2:43PM [facility] US Upper extremity - righton 02-01-2024 * * *Final Report* * * DATE OF EXAM: Feb 01 2024 9:30AM AFU 1197 - US HAND/WRIST SYNOVIAL SCREEN RT / PROCEDURE REASON: Pain in joint, multiple sites * * * * Physician Interpretation * * * * MSK_US SYNOVITIS SCREENING ULTRASOUND OF THE HANDS AND WRISTS: CLINICAL INFORMATION: Pain in joint, multiple sites TECHNIQUE: Hay-scale, real-time ultrasound of both the right and left hand and wrist synovium and tenosynovium was performed with power Doppler examination. Images were saved to the permanent image archive. -2019 COMPARISON: X-ray: 02/05/2023 FINDINGS: RIGHT SIDE: RIGHT MCP AND PIP JOINT SYNOVIUM: 2ND MCP: Hypertrophy: Moderate. Power Doppler: Moderate. 2ND PIP: Hypertrophy: Moderate. Power Doppler: Minimal. 3RD MCP: Hypertrophy: Moderate. Power Doppler: Minimal. 3RD PIP: Hypertrophy: Moderate. Power Doppler: Moderate. 4TH MCP: Hypertrophy: None. Power Doppler: None. 4TH PIP: Hypertrophy: None. Power Doppler: None. 5TH MCP: Hypertrophy: Minimal. Power Doppler: Minimal. 5TH PIP: Hypertrophy: None. Power Doppler: None. RIGHT EXTENSOR AND FLEXOR TENOSYNOVIUM: 2ND Digit Flexor: Hypertrophy: None. Power Doppler: None. 2ND Digit Extensor: Hypertrophy: None. Power Doppler: None. 3RD Digit Flexor: Hypertrophy: None. Power Doppler: None. 3RD Digit Extensor: Hypertrophy: None. Power Doppler: None. 4TH Digit Flexor: Hypertrophy: None. Power Doppler: None. 4TH Digit Extensor: Hypertrophy: None. Power Doppler: None. 5TH Digit Flexor: Hypertrophy: None. Power Doppler: None. 5TH Digit Extensor: Hypertrophy: None. Power Doppler: None. CARPUS Synovitis: Hypertrophy: Minimal. Power Doppler: None. OTHER: None. LEFT SIDE: LEFT MCP AND PIP JOINT SYNOVIUM: 2ND MCP: Hypertrophy: Moderate. Power Doppler: Minimal. 2ND PIP: Hypertrophy: Minimal. Power Doppler: Minimal. 3RD MCP: Hypertrophy: Minimal. Power Doppler: Minimal. 3RD PIP: Hypertrophy: Moderate. Power Doppler: None. 4TH MCP: Hypertrophy: None. Power Doppler: None. 4TH PIP: Hypertrophy: None. Power Doppler: None. 5TH MCP: Hypertrophy: Minimal. Power Doppler: Minimal. 5TH PIP: Hypertrophy: None. Power Doppler: None. LEFT EXTENSOR AND FLEXOR TENOSYNOVIUM: 2ND Digit Flexor: Hypertrophy: None. Power Doppler: None. 2ND Digit Extensor: Hypertrophy: None. Power Doppler: None. 3RD Digit Flexor: Hypertrophy: None. Power Doppler: None. 3RD Digit Extensor: Hypertrophy: None. Power Doppler: None. 4TH Digit Flexor: Hypertrophy: None. Power Doppler: None. 4TH Digit Extensor: Hypertrophy: None. Power Doppler: None. 5TH Digit Flexor: Hypertrophy: None. Power Doppler: None. 5TH Digit Extensor: Hypertrophy: None. Power Doppler: None. CARPUS Synovitis: Hypertrophy: Moderate. Power Doppler: Moderate in the radiocarpal joint. OTHER: None. DIVISION OF RADIOLOGY Provider, Op[facility] - 02/01/2024 * * *Final Report* * * DATE OF EXAM: Feb 01 2024 9:30AM AFU 1197 - US HAND/WRIST SYNOVIAL SCREEN RT / PROCEDURE REASON: Pain in joint, multiple sites * * * * Physician Interpretation * * * * MSK_US SYNOVITIS SCREENING ULTRASOUND OF THE HANDS AND WRISTS: CLINICAL INFORMATION: Pain in joint, multiple sites TECHNIQUE: Hay-scale, real-time ultrasound of both the right and left hand and wrist synovium and tenosynovium was performed with power Doppler examination. Images were saved to the permanent image archive. v1-2019 COMPARISON: X-ray: 02/05/2023 FINDINGS: RIGHT SIDE: RIGHT MCP AND PIP JOINT SYNOVIUM: 2ND MCP: Hypertrophy: Moderate. Power Doppler: Moderate. 2ND PIP: Hypertrophy: Moderate. Power Doppler: Minimal. 3RD MCP: Hypertrophy: Moderate. Power Doppler: Minimal. 3RD PIP: Hypertrophy: Moderate. Power Doppler: Moderate. 4TH MCP: Hypertrophy: None. Power Doppler: None. 4TH PIP: Hypertrophy: None. Power Doppler: None. 5TH MCP: Hypertrophy: Minimal. Power Doppler: Minimal. 5TH PIP: Hypertrophy: None. Power Doppler: None. RIGHT EXTENSOR AND FLEXOR TENOSYNOVIUM: 2ND Digit Flexor: Hypertrophy: None. Power Doppler: None. 2ND Digit Extensor: Hypertrophy: None. Power Doppler: None. 3RD Digit Flexor: Hypertrophy: None. Power Doppler: None. 3RD Digit Extensor: Hypertrophy: None. Power Doppler: None. 4TH Digit Flexor: Hypertrophy: None. Power Doppler: None. 4TH Digit Extensor: Hypertrophy: None. Power Doppler: None. 5TH Digit Flexor: Hypertrophy: None. Power Doppler: None. 5TH Digit Extensor: Hypertrophy: None. Power Doppler: None. CARPUS Synovitis: Hypertrophy: Minimal. Power Doppler: None. OTHER: None. LEFT SIDE: LEFT MCP AND PIP JOINT SYNOVIUM: 2ND MCP: Hypertrophy: Moderate. Power Doppler: Minimal. 2ND PIP: Hypertrophy: Minimal. Power Doppler: Minimal. 3RD MCP: Hypertrophy: Minimal. Power Doppler: Minimal. 3RD PIP: Hypertrophy: Moderate. Power Doppler: None. 4TH MCP: Hypertrophy: None. Power Doppler: None. 4TH PIP: Hypertrophy: None. Power Doppler: None. 5TH MCP: Hypertrophy: Minimal. Power Doppler: Minimal. 5TH PIP: Hypertrophy: None. Power Doppler: None. LEFT EXTENSOR AND FLEXOR TENOSYNOVIUM: 2ND Digit Flexor: Hypertrophy: None. Power Doppler: None. 2ND Digit Extensor: Hypertrophy: None. Power Doppler: None. 3RD Digit Flexor: Hypertrophy: None. Power Doppler: None. 3RD Digit Extensor: Hypertrophy: None. Power Doppler: None. 4TH Digit Flexor: Hypertrophy: None. Power Doppler: None. 4TH Digit Extensor: Hypertrophy: None. Power Doppler: None. 5TH Digit Flexor: Hypertrophy: None. Power Doppler: None. 5TH Digit Extensor: Hypertrophy: None. Power Doppler: None. CARPUS Synovitis: Hypertrophy: Moderate. Power Doppler: Moderate in the radiocarpal joint. OTHER: None. IMPRESSION IMPRESSION: Scattered active synovitis in the hands and wrists. No tenosynovitis in the hands or wrists. [facility] Transcribe Date/Time: Feb 01 2024 9:55A Dictated by : TIERRA COKER MD This examination was interpreted and the report reviewed and electronically signed by: TIERRA COKER MD on Feb 01 2024 2:43PM [facility] (URFMOB ) SYLVIE CHIU ([id number]) 1950 [facility] Date Time Provider Department 01/29/24 3:40 PM SELWYN MICHELLE During your visit today, we recorded the following information about you: Pulse Blood pressure 71/minute 133/67 Milady Ordaz 01/29/2024 4:04 PM Signed [facility] FOLLOW-UP PATIENT HISTORY AND PHYSICAL EXAM PATIENT INFO: Sylvie Chiu 73 year old REFERRING Damaris: Hussein Ordonez [id number] [facility] [id number] CHIEF COMPLAINT: Prostate cancer, LUTS HISTORY: Sylvie Chiu is a 73 year old man with 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 Most recent PSA was 0.07 on 12/10/2023. Follows with radiation oncology. Has had dysuria and incomplete bladder emptying and was placed on Flomax 0.4 mg which he takes twice daily. Has been having this recently. He has pressure and discomfort in the perineum. Treated with: - Leuprolide 22.5 mg inj 09/09/22, 12/09/22 - Radiation therapy 11/06/22 - 12/15/22 [7000 cGy/6600 cGy/5040 cGy/28 fx to prostate/SVs/pelvic lymph nodes] Decipher test high-risk - 0.98 PSMA-PET negative for bone/LN metastasis IPSS- 19 QoL-3 PATHOLOGY: FINAL DIAGNOSIS A. Prostate, left base, biopsy: - Benign fibromuscular stroma; no prostatic glands are present. B. Prostate, left mid, biopsy: - Prostatic adenocarcinoma, Bruce score 3+3=6, grade group 1, involving 1 of 1 core (4 mm, 65%). C. Prostate, left apex, biopsy: - Prostatic adenocarcinoma, Bruce score 3+3=6, grade group 1, involving 1 of 1 core (1 mm, 25%). D. Prostate, left lateral base, biopsy: - Prostatic adenocarcinoma, Samantha score 3+4=7, grade group 2, involving 1 of 1 core (6 mm, 85%). - Bruce pattern 4 comprises approximately 10% of the carcinoma. - Small gland cribriform morphology is identified. - Atypical intraductal proliferation (AIP) is present. E. Prostate, left lateral mid, biopsy: - Prostatic adenocarcinoma, Bruce score 3+3=6, grade group 1, involving 1 of 1 core (2 mm, 50%) F. Prostate, left lateral apex, biopsy: - Prostatic adenocarcinoma, Bruce score 3+3=6, grade group 1, involving 1 of 1 core (1 mm, 30%). G. Prostate, right base, biopsy: - Benign prostate tissue. H. Prostate, right mid, biopsy: - Prostatic adenocarcinoma, Bruce score 3+3=6, grade group 1, involving 2 of 2 cores (1 mm, 30%; 1 mm, 20%) I. Prostate, right apex, biopsy: - Prostatic adenocarcinoma, Samantha score 3+3=6, grade group 1, involving 1 of 1 core (3 mm, 50%). J. Prostate, right lateral base, biopsy: - Benign prostate tissue. K. Prostate, right lateral mid, biopsy: - Prostatic adenocarcinoma, Samantha score 3+3=6, grade group 1, involving 1 of 1 core (1 mm, 10%). L.Prostate, right lateral apex, biopsy: - Prostatic adenocarcinoma, Samantha score 3+3=6, grade group 1, involving 1 of 1 core (2 mm, 30%). Prostate Cancer Biopsy Summary Number of cores examined: 13 Number of cores positive: 10 Highest Grade Group: 2 Highest % of core involvement: 85 % Cribriform pattern 4: Present, small gland Intraductal carcinoma: Suspicious Stripping Shovel Oiler tumor block to use for additional studies: D1 LABS PSA (ng/mL) Date Value 12/10/2023 0.07 06/11/2023 0.02 03/09/2023 0.03 12/05/2022 0.41 06/04/2022 5.50 10/18/2021 6.29 PSA Screening (NG/ML) Date Value 12/12/2008 2.4 Creatinine (mg/dL) Date Value 12/25/2023 0.94 09/25/2023 0.90 03/09/2023 1.04 12/14/2022 1.06 06/04/2022 1.03 10/04/2021 0.90 08/24/2018 0.87 07/01/2018 0.93 06/23/2018 1.00 11/02/2016 1.02 MRI pelvis 01/12/2024 IMPRESSION: 1. Grossly unremarkable appearance of the urinary bladder. No gross mass or stricture is noted. 2. No gross urethral stricture is noted. If clinically warranted, consider further evaluation with retrograde urethrogram. NM PET/CT 08/07/2022 IMPRESSION: Head and neck: - No PSMA-expressing lesions suspicious for metastases. Chest: - No PSMA-expressing lesions suspicious for metastases. Abdomens and Pelvis: - PSMA-expressing lesions in the prostate is consistent with known neoplasm. - Nonspecific bilateral inguinal lymph nodes. Bones and soft tissues: - No PSMA-expressing lesions suspicious for metastases. - Non PSMA-expressing sclerotic lesions in the bone, follow-up is recommended. 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 Normal [facility] UA DIP, URINE (POC)on 2023 BILIRUBIN UA (POCT) Negative Negative [facility] CLARITY UA (POCT) Clear [facility] COLOR UA (POCT) Yellow [facility] GLUCOSE UA (POCT) Negative Negative mg/dL [facility] Hemoglobin Ql (U) Negative Negative [facility] KETONE UA (POCT) Negative Negative mg/dL [facility] LEUKOCYTES UA (POCT) Negative Negative [facility] NITRITE UA (POCT) Negative Negative [facility] PH UA (POCT) 5.5 4.5 - 8.0 [facility] Protein Ql (U) Negative Negative mg/dL [facility] SPECIFIC GRAVITY UA (POCT) >=1.030 1.005 - 1.030 [facility] UROBILINOGEN UA (POCT) 0.2 Normal E.U./dL [facility] Location:[facility], [address] [place], [place], [address] [place] [address] POINT OF CARE [facility] MR Pelvis WO and W contrast Vikash 01-13-2024 IMPRESSION: 1. Grossly unremarkable appearance of the urinary bladder. No gross mass or stricture is noted. 2. No gross urethral stricture is noted. If clinically warranted, consider further evaluation with retrograde urethrogram. Manager Urgent Care: SAMANTHA Transcribe Date/Time: Jan 13 2024 9:02A Dictated by : PHI HOLLIS MD This examination was interpreted and the report reviewed and electronically signed by: PHI HOLLIS MD on Jan 13 2024 9:25AM [facility] DIVISION OF RADIOLOGY * * *Final Report* * * DATE OF EXAM: Jan 12 2024 10:22AM [facility] 0742 - MRI PELVIS WO/W IVCON / PROCEDURE REASON: Bladder neck obstruction * * * * Physician Interpretation * * * * HISTORY: History of pelvic radiation. Concern for bladder neck stricture. TECHNIQUE: Multiplanar, multisequence MR imaging of the pelvis, prior to and after the administration of 20 mL Dotarem intravenous contrast material. COMPARISON: PET/CT performed 08/07/2022 FINDINGS: Pelvis: No bladder wall thickening is noted. No gross bladder mass is visualized. No stricture is noted. No prostatomegaly. Posttreatment changes are seen within the prostate gland. No gross pelvic mass or fluid collection. No obvious urethral stricture is noted. Presacral edema and scarring is noted which may be on the basis of posttreatment change. Bowel: The visualized small bowel and colon are unremarkable. Peritoneum: No fluid collection or free air is seen. Retroperitoneum: No significant retroperitoneal lymphadenopathy is identified. Visualized osseous structures: Unremarkable. DIVISION OF RADIOLOGY Provider, [facility] - 01/13/2024 * * *Final Report* * * DATE OF EXAM: Jan 12 2024 10:22AM [facility] 0742 - MRI PELVIS WO/W IVCON / PROCEDURE REASON: Bladder neck obstruction * * * * Physician Interpretation * * * * HISTORY: History of pelvic radiation. Concern for bladder neck stricture. TECHNIQUE: Multiplanar, multisequence MR imaging of the pelvis, prior to and after the administration of 20 mL Dotarem intravenous contrast material. COMPARISON: PET/CT performed 08/07/2022 FINDINGS: Pelvis: No bladder wall thickening is noted. No gross bladder mass is visualized. No stricture is noted. No prostatomegaly. Posttreatment changes are seen within the prostate gland. No gross pelvic mass or fluid collection. No obvious urethral stricture is noted. Presacral edema and scarring is noted which may be on the basis of posttreatment change. Bowel: The visualized small bowel and colon are unremarkable. Peritoneum: No fluid collection or free air is seen. Retroperitoneum: No significant retroperitoneal lymphadenopathy is identified. Visualized osseous structures: Unremarkable. IMPRESSION IMPRESSION: 1. Grossly unremarkable appearance of the urinary bladder. No gross mass or stricture is noted. 2. No gross urethral stricture is noted. If clinically warranted, consider further evaluation with retrograde urethrogram. Manager Urgent Care: SAMANTHA Transcribe Date/Time: Jan 13 2024 9:02A Dictated by : PHI HOLLIS MD This examination was interpreted and the report reviewed and electronically signed by: PHI HOLLIS MD on Jan 13 2024 9:25AM EST [facility] MR Pelvis WO and W contrast IVOrdered By: Ccf Provider on 01-13-2024 [facility] MR Pelvis WO and W contrast Vikash 01-12-2024 Radiology Study observation (narrative) [facility] URINALYSIS, DIPSTICK ONLYon 01-12-2024 Bilirubin Ql (U) Negative Negative [facility] Clarity (Unsp spec) Clear Clear [facility] Color (U) Yellow Yellow [facility] Glucose Test strip (U) [Mass/Vol] Negative Negative [facility] Hemoglobin Ql (U) Negative Negative [facility] Ketones Ql (U) Negative Negative [facility] Leukocyte esterase Test strip Ql (U) Negative Negative [facility] Nitrite Ql (U) Negative Negative [facility] pH (U) 5.5 [pH] <8.5 [facility] Protein (U) [Mass/Vol] Negative Negative [facility] Specific gravity (U) [Rel density] 1.025 1.005 - 1.030 [facility] Urobilinogen Ql (U) 0.2 EU/dL 0.2-1.0 EU/dL [facility] ESR Westergren method (Bld) [Velocity]on 12-14-2023 ESR (Bld) [Velocity] 13 mm/h 0 - 15 mm/hr [facility] No Panel [facility]on [facility] - left AP and Lateral on 04-12-2023 IMPRESSION: Bilatera l hip osteoarthrosis Manager Urgent Care: SAMANTHA Transcribe Date/Time: Apr 12 2023 4:04P Dictated by : ISAEL MAGAÑA MD This examination was interpreted and the report reviewed and electronically signed by: ISAEL MAGAÑA MD on Apr 12 2023 4:05PM [facility] RADIOLOGY * * *Final Report* * * DATE OF EXAM: Apr 10 2023 9:06AM [facility] [id number] - XR HIP 2V AP/ LAT LT / PROCEDURE REASON: M25.552-Pain in left hip * * * * Physician Interpretation * * * * PROCEDURE: Left hip INDICATION: Pain in left hip TECHNIQUE: XR AP pelvis, crosstable lateral left hip COMPARISON: 02/05/2021 FINDINGS: Mild left and moderate right hip joint space narrowing with minimal acetabular spur formation, little changed. No fracture or dislocation. [facility] 04/12/[facility]23 * * *Final Report* * * DATE OF EXAM: Apr 10 2023 9:06AM [id number] - XR HIP 2V AP/ LAT LT / PROCEDURE REASON: M25.552-Pain in left hip * * * * Physician Interpretation * * * * PROCEDURE: Left hip INDICATION: Pain in left hip TECHNIQUE: XR AP pelvis, crosstable lateral left hip COMPARISON: 02/05/2021 FINDINGS: Mild left and moderate right hip joint space narrowing with minimal acetabular spur formation, little changed. No fracture or dislocation. IMPRESSION IMPRESSION: Bilateral hip osteoarthrosis Manager Urgent Care: SAMANTHA Transcribe Date/Time: Apr 12 2023 4:04P Dictated by : ISAEL MAGAÑA MD This examination was interpreted and the report reviewed and electronically signed by: ISAEL MAGAÑA MD on Apr 12 2023 4:05PM EST [facility] XR Hip - left AP and Lateral Ordered By: Ccf Provider on 04-12-2023 [facility] XR Hip - left AP and Lateral on 04-10-2023 Radiology Study observation (narrative) [facility] Absolute lymphocyte countOrd ered By: Norma Davies on 03-06-2023 Lymphocytes Auto (Unsp spec) [#/Vol] 0.52 10*3/uL 0.83-4.51 [facility] Basophil percentageOrdered B y: Norma Davies on 03-06-2023 Basophils/100 WBC (Bld) 0.6 % 0-1 [facility] Bilirubin [Mass/Vol] 0.40 mg/dL 0.20-1.00 [facility] Comment on above: For patients on eltr ombopag therapy, use of Dimension [place] TBIL is not recommended. Chloride [Moles/Vol] 107 mmol/L 98-107 [facility] Cholesterol [Mass/Vol] 172 mg/dL <200 [facility] Comment on above: <200 mg/dL Desirable 200-240 mg/dL Borderline >240 mg/dL High Risk Eosinophils/100 WBC (Bld) 1.9 % 0-5 [facility] Glucose [Mass/Vol] 88 mg/dL 74-106 [facility] Neutrophils (Bld) [#/Vol] 4.2 10*3/uL 2.0-7.7 [facility] Neutrophils/100 WBC (Bld) 80.5 % 47-70 [facility] Potassium [Moles/Vol] 3.9 mmol/L 3.5-5.1 [facility] Protein [Mass/Vol] 7.5 g/dL 6.4-8.2 [facility] Sodium [Moles/Vol] 140 mmol/L 136-145 [facility] Triglyceride [Mass/Vol] 126 mg/dL <199 [facility] Comment on above: The drugs N-Acetylcy steine and Metamizole may falsely depress this assay.Serum Triglycerides Reference Interval Normal <150 mg/dL Borderline high 150 - 199 mg/dL High 200 - 499 mg/dL Very High > or = 500 mg/dL WBC (Bld) [#/Vol] 5.3 10*3/uL 4.4-11.0 [facility] Blood erythrocytes count (nu mber/volume)Ordered By: Norma Davies on 03-06-2023 RBC (Bld) [#/Vol] 4.15 10*6/uL 4.6-6.2 [facility] Blood hemoglobin measurement (mass/volume)Ordered By: Norma Davies on 03-06-2023 Hemoglobin (Bld) [Mass/Vol] 13.3 g/dL 13.0-16.5 [facility] Blood lymphocytes/100 leukoc ytesOrdered By: Norma Davies on 03-06-2023 Lymphocytes/100 WBC (Bld) 9.9 % 19-41 [facility] Blood manual differential co mment interpretation (narrative result)Ordered By: Norma Davies on 03-06-2023 Manual differential comment Abhijit (Bld) [Interp] SCANNED [facility] Blood monocytes/100 leukocyt esOrdered By: Norma Davies on 03-06-2023 Monocytes/100 WBC (Bld) 6.3 % 0-10 [facility] Blood platelet mean volumeOr dered By: Norma Davies on 03-06-2023 Platelet mean volume (Bld) [Entitic vol] 11.3 fL 6.2-12.0 [facility] Determination of erythrocyte mean corpuscular volume (MCV)Ordered By: Norma Davies on 03-06-2023 MCV (RBC) [Entitic vol] 98.6 fL 80-94 [facility] Hematocrit Auto (Bld) [Volum e fraction]Ordered By: Norma Davies on 03-06-2023 Hematocrit (Bld) [Volume fraction] 40.9 % 40-54 [facility] Laboratory - Chemistry and C hemistry - challengeOrdered By: Norma Davies on 03-06-2023 ALP [Catalytic activity/Vol] 82 U/L 45-117 [facility] ALT [Catalytic activity/Vol] 21 U/L 16-61 [facility] CO2 [Moles/Vol] 29.0 mmol/L 21.0-32.0 [facility] Globulin (S) [Mass/Vol] 3.7 g/dL 2.2-4.2 [facility] Urea nitrogen/Creatinine [Mass ratio] 16.0 mg/mg 10-20 [facility] Laboratory - Hematology and Cell countsOrdered By: Norma Davies on 03-06-2023 Erythrocyte distribution width (RBC) [Entitic vol] 47.3 fL 35.1-43.9 [facility] Erythrocyte distribution width (RBC) [Ratio] 13.2 % 11.6-14.6 [facility] Immature granulocytes/100 WBC (Bld) 0.800 % 0.0-0.9 [facility] Comment on above: IG% - Immature Granu locytes (promyelocytes, myelocytes and metamyelocytes) > 1% indicates that a LEFT SHIFT is Present. MCH (RBC) [Entitic mass] 32.0 pg 27.0-32.0 [facility] Nucleated RBC/100 WBC (Bld) [Ratio] 0 % 0-5 [facility] MCHC Auto (RBC) [Mass/Vol]Or dered By: Norma Davies on 03-06-2023 MCHC (RBC) [Mass/Vol] 32.5 g/dL 32-36 [facility] No Panel InformationOrdered By: Norma Davies on 03-06-2023 Estimated GFR (MDRD) Amer 73 mL/min >60 [facility] Comment on above: GFR Calc Estimated GFR (MDRD) Non-Af Amer 61 mL/min >60 [facility] Comment on above: Non- GFR Calc Thyroid Stimulating Hormone (TSH) 2.35 uIU/mL 0.358-3.74 [facility] Platelets bldOrdered By: Corey Davies on 03-06-2023 Platelets (Bld) [#/Vol] 155 10*3/uL 150-450 [facility] Serum or plasma albumin faustino urement (mass/volume)Ordered By: Norma Davies on 03-06-2023 Albumin [Mass/Vol] 3.8 g/dL 3.2-5.0 [facility] Serum or plasma albumin/glob ulin mass ratioOrdered By: Norma Davies on 03-06-2023 Albumin/Globulin [Mass ratio] 1.0 {ratio} 0.9-2.4 [facility] Serum or plasma calcium faustino urement (mass/volume)Ordered By: Norma Davies on 03-06-2023 Calcium [Mass/Vol] 9.4 mg/dL 8.5-10.1 [facility] Serum or plasma cholesterol in HDL measurement (mass/volume)Ordered By: Norma Davies on 03-06-2023 Cholesterol in HDL [Mass/Vol] 48 mg/dL >40 [facility] Comment on above: The drugs N-Acetylcy steine and Metamizole may falsely depress this assay. Reference Range HDL <40 mg/dL Low HDL Cholesterol HDL >or= 60 mg/dL High HDL Cholesterol Serum or plasma cholesterol in VLDL measurement (mass/volume)Ordered By: Norma Davies on 03-06-2023 Cholesterol in VLDL [Mass/Vol] 25 mg/dL 5-40 [facility] Serum or plasma creatinine m easurement (mass/volume)Ordered By: Norma Davies on 03-06-2023 Creatinine [Mass/Vol] 1.25 mg/dL 0.70-1.30 [facility] Comment on above: The validity of the calculated GFR & GFRAA in patients over 70 years has not been determined. Clinical correlation is essential. Serum or plasma low density lipoprotein (LDL) cholesterol measurement (mass/volume)Ordered By: Norma Davies on 03-06-2023 Cholesterol in LDL [Mass/Vol] 99 mg/dL 0-130 [facility] Serum or plasma urea nitroge n measurement (mass/volume)Ordered By: Norma Davies on 03-06-2023 Urea nitrogen [Mass/Vol] 20 mg/dL 7-18 [facility] Thin prep Papanicolaou smear with manual screeningOrdered By: Norma Davies on 03-06-2023 Thin prep Papanicolaou smear with manual screening 15 U/L 15-37 [facility] Thin prep Papanicolaou smear with manual screening 4 5-15 [facility] Whole blood hemoglobin A1c/t otal hemoglobin ratio (mass fraction)Ordered By: Norma Davies on 03-06-2023 HbA1c (Bld) [Mass fraction] 4.9 % 3.8-5.6 [facility] Comment on above: Normal < 5.7 % Predi abetic 5.7 - 6.4 % Diabetic >or= 6.5 % Please note range changes. No Panel InformationOrdered By: Ccf Provider on 02-07-2023 [facility] XR Hand - left PA and Latera l and Obliqueon 02-07-2023 IMPRESSION: Degenera tive changes. No acute abnormality Manager Urgent Care: [facility] Transcribe Date/Time: Feb 07 2023 7:11P Dictated by : ISAEL MAGAÑA MD This examination was interpreted and the report reviewed and electronically signed by: ISAEL MAGAÑA MD on Feb 07 2023 7:13PM [facility] * * *Final Report* * * DATE OF EXAM: Feb 05 2023 2:48PM MANUEL [id number] - XR HAND 3V PA/LAT/OBL LT / PROCEDURE REASON: M79.642-Left hand pain * * * * Physician Interpretation * * * * PROCEDURE: Bilateral hands INDICATION: Left hand pain. Right thumb pain . TECHNIQUE: XR HAND 3V PA/LAT/OBL LT, XR HAND 3V PA/LAT/OBL RT COMPARISON: None FINDINGS: Left hand: Osteopenia. 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 Osteoarthritic change in all DIP and PIP joints as well as the 2nd MCP joint. No fracture or dislocation. No erosion or focal soft tissue swelling. Right hand: Osteopenia. Moderate triscaphe and moderate to advanced 1st CMC joint osteoarthrosis. Osteoarthritic change in the DIP and PIP joints of all digits as well as the 2nd and 3rd MCP joints. No erosion or focal soft tissue swelling. [facility] Provider, Jesus Corbett [facility] - 02/07/2023 * * *Final Report* * * DATE OF EXAM: Feb 05 2023 2:48PM MANUEL [id number] - XR HAND 3V PA/LAT/OBL LT / PROCEDURE REASON: M79.642-Left hand pain * * * * Physician Interpretation * * * * PROCEDURE: Bilateral hands INDICATION: Left hand pain. Right thumb pain . TECHNIQUE: XR HAND 3V PA/LAT/OBL LT, XR HAND 3V PA/LAT/OBL RT COMPARISON: None FINDINGS: Left hand: Osteopenia. 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 Osteoarthritic change in all DIP and PIP joints as well as the 2nd MCP joint. No fracture or dislocation. No erosion or focal soft tissue swelling. Right hand: Osteopenia. Moderate triscaphe and moderate to advanced 1st CMC joint osteoarthrosis. Osteoarthritic change in the DIP and PIP joints of all digits as well as the 2nd and 3rd MCP joints. No erosion or focal soft tissue swelling. IMPRESSION IMPRESSION: Degenerative changes. No acute abnormality Manager Urgent Care: [facility] Transcribe Date/Time: Feb 07 2023 7:11P Dictated by : ISAEL MAGAÑA MD This examination was interpreted and the report reviewed and electronically signed by: ISAEL MAGAÑA MD on Feb 07 2023 7:13PM EST [facility] XR Hand - right PA and Later al and Obliqueon 02-07-2023 IMPRESSION: Degenera tive changes. No acute abnormality Manager Urgent Care: [facility] Transcribe Date/Time: Feb 07 2023 7:11P Dictated by : ISAEL MAGAÑA MD This examination was interpreted and the report reviewed and electronically signed by: ISAEL MAGAÑA MD on Feb 07 2023 7:15PM EST [facility] * * *Final Report* * * DATE OF EXAM: Feb 05 2023 4:11PM MDO 5346 - XR HAND 3V PA/LAT/OBL RT / PROCEDURE REASON: M79.644-Thumb pain, right * * * * Physician Interpretation * * * * PROCEDURE: Bilateral hands INDICATION: Left hand pain. Right thumb pain . TECHNIQUE: XR HAND 3V PA/LAT/OBL LT, XR HAND 3V PA/LAT/OBL RT COMPARISON: None FINDINGS: Left hand: Osteopenia. 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 Osteoarthritic change in all DIP and PIP joints as well as the 2nd MCP joint. No fracture or dislocation. No erosion or focal soft tissue swelling. Right hand: Osteopenia. Moderate triscaphe and moderate to advanced 1st CMC joint osteoarthrosis. Osteoarthritic change in the DIP and PIP joints of all digits as well as the 2nd and 3rd MCP joints. No erosion or focal soft tissue swelling. [facility] Provider, Jesus Riley - 02/07/2023 * * *Final Report* * * DATE OF EXAM: Feb 05 2023 4:11PM O 5346 - XR HAND 3V PA/LAT/OBL RT / PROCEDURE REASON: M79.644-Thumb pain, right * * * * Physician Interpretation * * * * PROCEDURE: Bilateral hands INDICATION: Left hand pain. Right thumb pain . TECHNIQUE: XR HAND 3V PA/LAT/OBL LT, XR HAND 3V PA/LAT/OBL RT COMPARISON: None FINDINGS: Left hand: Osteopenia. 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 Osteoarthritic change in all DIP and PIP joints as well as the 2nd MCP joint. No fracture or dislocation. No erosion or focal soft tissue swelling. Right hand: Osteopenia. Moderate triscaphe and moderate to advanced 1st CMC joint osteoarthrosis. Osteoarthritic change in the DIP and PIP joints of all digits as well as the 2nd and 3rd MCP joints. No erosion or focal soft tissue swelling. IMPRESSION IMPRESSION: Degenerative changes. No acute abnormality [facility] Transcribe Date/Time: Feb 07 2023 7:11P Dictated by : ISAEL MAGAÑA MD This examination was interpreted and the report reviewed and electronically signed by: ISAEL MAGAÑA MD on Feb 07 2023 7:15PM EST [facility] XR HAND GENERAL 3V PA/LAT/OB L RIGHTon 02-05-2023 [facility] XR Hand - left PA and Latera l and Obliqueon 02-05-2023 Radiology Study observation (narrative) [facility] XR Hand - right PA and Later al and Obliqueon 02-05-2023 Radiology Study observation (narrative) [facility] US DVT LOWER LTon 12-02-2022 [facility] Lower extremity vein - le fton 12-02-2022 Addendum by Provider , [facility] on 12/02/2022 1:42 PM EST * * *Final Report* * * * * * SEE BOTTOM OF REPORT FOR ADDENDED TEXT * * * DATE OF EXAM: Dec 02 2022 1:09PM LEÓN 1006 - US DVT LOWER LT / PROCEDURE REASON: Leg swelling * * * * Physician Interpretation * * * * * * * * * * * * ORIGINAL REPORT * * * * * * * * EXAMINATION: LEFT LOWER EXTREMITY DEEP VENOUS ULTRASOUND WITH DOPPLER IMAGING, 12/02/2022 CLINICAL HISTORY: Leg swelling. Deep vein thrombosis suspected. TECHNIQUE: Grayscale with compression maneuvers, color Doppler and spectral Doppler imaging of the left proximal deep veins was performed. Grayscale with compression maneuvers of the peroneal and posterior tibial veins was performed. The left great and small saphenous veins were evaluated at their insertion to the deep system. The contralateral common femoral vein was imaged for comparison. Images were obtained and stored in a permanent archive. MQ: [id number] COMPARISON: 10/14/2021 RESULT: LEFT LOWER EXTREMITY PROXIMAL DEEP VEINS Distal External Iliac, Common Femoral and proximal Profunda Veins: Compression: Normal Doppler: Normal, spontaneous respirophasic flow. Normal response to augmentation. Femoral vein: Compression: Normal Doppler: Normal, spontaneous flow. Normal response to augmentation. Popliteal vein: Compression: Normal Doppler: Normal, spontaneous flow. Normal response to augmentation. CALF DEEP VEINS Peroneal veins: Normal compression of segmentally visualized veins. Posterior tibial veins: Normal compression. Gastrocnemius and Soleal veins: Not imaged. SUPERFICIAL VEINS Great saphenous: Patent and compressible at insertion into common femoral vein; not otherwise assessed. Small Saphenous: Thrombus present with abnormal compression. Other: Trace subcutaneous fluid in the left calf. Prominent left varicocele veins. RIGHT LOWER EXTREMITY (FOR COMPARISON) Common Femoral Vein: Compression: Normal Doppler: Normal, spontaneous respirophasic flow. Normal response to augmentation. IMPRESSION: Negative study for proximal DVT in the left lower extremity. Negative study for calf DVT in the left lower extremity.. Evaluation of the peroneal vein was limited. POSITIVE superficial thrombophlebitis in the small saphenous vein in the left lower extremity. * * * * * * * * ADDENDUM #1 * * * * * * * * COMMUNICATION: Communicated with HUSSEIN ORDONEZ on 12/02/2022 1:40 PM via verbal communication. [facility] Transcribe Date/Time: Dec 02 2022 1:39P Dictated by : ROSHNI GODINEZ MD This examination was interpreted and the report reviewed and electronically signed by: ROSHNI GODINEZ MD on Dec 02 2022 1:28PM EST This document has been addended by: ROSHNI GODINEZ MD on Dec 02 2022 1:40PM EST [facility] Radiology Study observation (narrative) [facility] US Lower extremity vein - le ftOrdered By: Ccf Provider on 12-02-2022 [facility] XR Shoulder - right 3 Viewso n 09-12-2022 IMPRESSION: Degenerative changes. Findings suggestive of rotator cuff calcific tendinosis. Manager Urgent Care: [facility] Transcribe Date/Time: Sep 12 2022 11:35A Dictated by : VONDA BARON MD This examination was interpreted and the report reviewed and electronically signed by: VONDA BARON MD on Sep 12 2022 11:38AM [facility] * * *Final Report* * * DATE OF EXAM: Sep 12 2022 9:30AM MOX [id number] - XR SHLDR >/=3V AP/ALEXIA AP/OTHR RT / PROCEDURE REASON: Pain * * * * Physician Interpretation * * * * HISTORY: Pain . TECHNIQUE: XR SHLDR >/=3V AP/ALEXIA AP/OTHR RT Laterality: RIGHT Number of different views (projections): 3 COMPARISON: Whole body PET/CT dated 08/07/2022. RESULT: There is no acute fracture or dislocation. The acromiohumeral interval is preserved. There are degenerative changes at the acromioclavicular and glenohumeral joints. There are reactive changes at the greater tuberosity humerus. There is a punctate calcification projecting the region of the rotator cuff tendons. There is no soft tissue swelling. There is no evidence of acute process in the included chest. No other significant abnormality. [facility] Provider, jhonny Riley - 09/12/2022 * * *Final Report* * * DATE OF EXAM: Sep 12 2022 9:30AM MOX 5253 - XR SHLDR >/=3V AP/ALEXIA AP/OTHR RT / PROCEDURE REASON: Pain * * * * Physician Interpretation * * * * HISTORY: Pain . TECHNIQUE: XR SHLDR >/=3V AP/ALEXIA AP/OTHR RT Laterality: RIGHT Number of different views (projections): 3 COMPARISON: Whole body PET/CT dated 08/07/2022. RESULT: There is no acute fracture or dislocation. The acromiohumeral interval is preserved. There are degenerative changes at the acromioclavicular and glenohumeral joints. There are reactive changes at the greater tuberosity humerus. There is a punctate calcification projecting the region of the rotator cuff tendons. There is no soft tissue swelling. There is no evidence of acute process in the included chest. No other significant abnormality. IMPRESSION IMPRESSION: Degenerative changes. Findings suggestive of rotator cuff calcific tendinosis. Manager Urgent Care: [facility] Transcribe Date/Time: Sep 12 2022 11:35A Dictated by : VONDA BARON MD This examination was interpreted and the report reviewed and electronically signed by: VONDA BARON MD on Sep 12 2022 11:38AM EST [facility] Radiology Study observation (narrative) [facility] XR Shoulder - right 3 ViewsO rdered By: Ccf Provider on 09-12-2022 [facility] NM PET/CT PROSTATE WBon 07-29 NM PET/CT PROSTATE WB * * *Final Report* * * DATE OF EXAM: Aug 07 2022 9:51AM IAP 0093 - NM PET/CT PROSTATE WB / PROCEDURE REASON: C61 * * * * Physician Interpretation * * * * [id number] WHOLE BODY PET/CT SCAN HISTORY: 72-year-old man with prostate cancer. Pre-treatment staging. Prostate cancer grade: Grade Group 2 (Samantha score 3 + 4) 2021 Therapy: Prior ADT: PSA: 5.5 ng/mL (06/04/2022) PREVIOUS COMPARISON PET/CT STUDY: none OTHER COMPARISON: MRI 07/17/2022 TECHNIQUE: 10 mCi of [id number]. The PET imaging was obtained between TOP OF HEAD THROUGH PROXIMAL THIGH approximately 60 minutes after injection. Non-contrast spiral CT was also performed for attenuation correction. CT Dose-Length Product (DLP): 831mGy*cm CT Dose Reduction Employed: Yes RESULTS: HEAD AND NECK: Lymph nodes: No lymphadenopathy with abnormal tracer uptake. Other: Physiologic activity in the salivary and lacrimal glands. No other lesions with abnormal tracer uptake. CHEST: Lymph nodes: No lymph nodes with abnormal tracer uptake. Small benign-appearing mediastinal lymph nodes. Lungs and airways: No nodules or masses with abnormal tracer uptake. Calcified granuloma in the left lung the left hilar region. Cardiovascular structures: No lesions with abnormal tracer uptake. Pleura: No pleural effusion or lesions with abnormal tracer uptake. Other: None. ABDOMEN AND PELVIS: Hepatobiliary and pancreas: Physiologic uptake. No lesions with abnormal tracer uptake. Spleen: Physiologic uptake. No splenomegaly or lesions with abnormal tracer uptake. Adrenal Glands: No lesions with abnormal tracer uptake. Kidneys: Physiologic activity but no lesions with abnormal tracer uptake. Retroperitoneum: No lymph nodes or other lesions with abnormal tracer uptake. Mesentery: No lymph nodes or other lesions with abnormal tracer uptake. GI tract: Physiologic activity but no lesions with abnormal tracer uptake. Pelvis: Prostate bed: There is heterogeneous tracer uptake in the prostate, more pronounced in the apex and left lobe with max SUV 6.1, consistent with known neoplasm. Seminal Vesicles bed: No abnormal activity. Lymph nodes: Right: * Common iliac: No lymph nodes with abnormal tracer uptake. * External iliac: No lymph nodes with abnormal tracer uptake. * Internal iliac: No lymph nodes with abnormal tracer uptake. * Obturator: No lymph nodes with abnormal tracer uptake. Left: * Common iliac: No lymph nodes with abnormal tracer uptake. * External iliac: No lymph nodes with abnormal tracer uptake. * Internal iliac: No lymph nodes with abnormal tracer uptake. * Obturator: No lymph nodes with abnormal tracer uptake. Pre-sacral: No lymph nodes with abnormal tracer uptake. Ewa-rectal: No lymph nodes with abnormal tracer uptake. Other findings: There are multiple bilateral inguinal lymph nodes with minimal tracer uptake, probably benign. The largest is on the left measuring 2.3 x 1.6 cm with max SUV 3.3. BONE AND OTHER FINDINGS: No osseous destructive lesions with abnormal tracer uptake. There is a 1.3 cm sclerotic lesion in the right iliac bone with minimal tracer uptake of max SUV 2. Another 1.1 cm sclerotic lesion in the right posterior acetabulum. Additional tiny sclerotic lesions in the bilateral femur, likely bone islands. IMPRESSION: Head and neck: - No PSMA-expressing lesions suspicious for metastases. Chest: - No PSMA-expressing lesions suspicious for metastases. Abdomens and Pelvis: - PSMA-expressing lesions in the prostate is consistent with known neoplasm. - Nonspecific bilateral inguinal lymph nodes. Bones and soft tissues: - No PSMA-expressing lesions suspicious for metastases. - Non PSMA-expressing sclerotic lesions in the bone, follow-up is recommended. Manager Urgent Care: [facility] Transcribe Date/Time: Aug 07 2022 10:21A Dictated by : BECKIE MARTINEZ MD This examination was interpreted and the report reviewed and electronically signed by: BECKIE MARTINEZ MD on Aug 07 2022 10:42AM EST [id number] Normal [facility] CNOVon 07-29-2022 CNOV Office Visit (AKURFL ) YSLVIE CHIU ([id number]) 1950 [facility] Date Time Provider Department 07/29/22 1:15 PM VAZQUEZ PAGE During your visit today, we recorded the following information about you: Blood pressure Weight Height 128/76 145.2 kg 1.803 m Vazquez Page DO 07/29/2022 1:57 PM Signed [facility] [place] [facility] LOCATION: [address] [place] [address] ESTABLISHED PATIENT PATIENT INFO: Sylvie Chiu 72 year old Chief Complaint: Prostate Cancer HPI Completed MRI - suspicion for bone involvement. Bone scan negative previously. Some lymphadenopathy Here with . Decipher High Risk Features. 1-Duration: 2021 2-Location: prostate 3-Severity: N/A 4-Quality: Not applicable 5-Context: N/A 6-Timing: N/A 7-Modifying factors: No treatment prior to referral 8-Associated signs AND symptoms: no additional symptoms PATHOLOGY: FINAL DIAGNOSIS A. Prostate, left base, biopsy: - Benign fibromuscular stroma; no prostatic glands are present. B. Prostate, left mid, biopsy: - Prostatic adenocarcinoma, Bruce score 3+3=6, grade group 1, involving 1 of 1 core (4 mm, 65%). C. Prostate, left apex, biopsy: - Prostatic adenocarcinoma, Samantha score 3+3=6, grade group 1, involving 1 of 1 core (1 mm, 25%). D. Prostate, left lateral base, biopsy: - Prostatic adenocarcinoma, Bruce score 3+4=7, grade group 2, involving 1 of 1 core (6 mm, 85%). - Bruce pattern 4 comprises approximately 10% of the carcinoma. - Small gland cribriform morphology is identified. - Atypical intraductal proliferation (AIP) is present. E. Prostate, left lateral mid, biopsy: - Prostatic adenocarcinoma, Samantha score 3+3=6, grade group 1, involving 1 of 1 core (2 mm, 50%). F. Prostate, left lateral apex, biopsy: - Prostatic adenocarcinoma, Samantha score 3+3=6, grade group 1, involving 1 of 1 core (1 mm, 30%). G. Prostate, right base, biopsy: - Benign prostate tissue. H. Prostate, right mid, biopsy: - Prostatic adenocarcinoma, Samantha score 3+3=6, grade group 1, involving 2 of 2 cores (1 mm, 30%; 1 mm, 20%) I. Prostate, right apex, biopsy: - Prostatic adenocarcinoma, Bruce score 3+3=6, grade group 1, involving 1 of 1 core (3 mm, 50%). J. Prostate, right lateral base, biopsy: - Benign prostate tissue. K. Prostate, right lateral mid, biopsy: - Prostatic adenocarcinoma, Samantha score 3+3=6, grade group 1, involving 1 of 1 core (1 mm, 10%). L.Prostate, right lateral apex, biopsy: - Prostatic adenocarcinoma, Samantha score 3+3=6, grade group 1, involving 1 of 1 core (2 mm, 30%). Prostate Cancer Biopsy Summary Number of cores examined: 13 Number of cores positive: 10 Highest Grade Group: 2 Highest % of core involvement: 85 % Cribriform pattern 4: Present, small gland Intraductal carcinoma: Suspicious Stripping Shovel Oiler tumor block to use for additional studies: D1 Decipher testing showed a high-risk score. LAB: WBC (k/uL) Date Value 10/04/2021 6.68 RBC (m/uL) Date Value 10/04/2021 4.50 Hemoglobin (g/dL) Date Value 10/04/2021 14.0 Hematocrit (%) Date Value 10/04/2021 43.3 MCV (fL) Date Value 10/04/2021 96.2 MCH (pG) Date Value 10/04/2021 31.1 MCHC (g/dL) Date Value 10/04/2021 32.3 RDW-CV (%) Date Value 10/04/2021 13.3 Platelet Count (k/uL) Date Value 10/04/2021 155 MPV (fL) Date Value 10/04/2021 11.0 Neut% (%) Date Value 10/04/2021 60.9 Lymph% (%) Date Value 10/04/2021 29.0 [place]% (%) Date Value 10/04/2021 6.7 Eosin% (%) Date Value 10/04/2021 2.4 Baso% (%) Date Value 10/04/2021 1.0 Abs Neut (ANC) (k/uL) Date Value 10/04/2021 4.06 Abs Lym (X10-3/UL) Date Value 03/22/2010 1.6 Abs [place] (k/uL) Date Value 10/04/2021 0.45 Abs Eosin (k/uL) Date Value 10/04/2021 0.16 Abs Baso (k/uL) Date Value 10/04/2021 0.07 Creatinine Date Value Ref Range Status 06/04/2022 1.03 0.73 - 1.22 mg/dL Final 10/04/2021 0.90 0.73 - 1.22 mg/dL Final 08/24/2018 0.87 0.73 - 1.22 mg/dL Final 07/01/2018 0.93 0.73 - 1.22 mg/dL Final PSA (ng/mL) Date Value 06/04/2022 5.50 10/18/2021 6.29 PSA Screening (NG/ML) Date Value 12/12/2008 2.4 URINE POC GLUCOSE UA (POCT) Negative 11/21/2021 BILIRUBIN UA (POCT) Negative 11/21/2021 KETONE UA (POCT) Negative 11/21/2021 SPECIFIC GRAVITY UA (POCT) 1.025 11/21/2021 HEMOGLOBIN/BLOOD UA (POCT) Negative 11/21/2021 PH UA (POCT) 6.0 11/21/2021 PROTEIN UA (POCT) Negative 11/21/2021 UROBILINOGEN UA (POCT) 0.2 11/21/2021 NITRITE UA (POCT) Negative 11/21/2021 LEUKOCYTES UA (POCT) Trace 11/21/2021 COLOR UA (POCT) Yellow 11/21/2021 CLARITY UA (POCT) Clear 11/21/2021 IMAGING: MRI PROSTATE WO/W IVCON (Order [id number]) Patient Info Patient Name Sex Sylvie Chiu ([id number]) Male 1950 07/21/2022 11:06 AM - Radi (more content not included)... Normal [facility] MRI PROSTATE WO/W IVCONon MRI PROSTATE WO/W IVCON * * *Final Report* * * DATE OF EXAM: Jul 17 2022 11:00AM [facility] 075 - MRI PROSTATE WO/W IVCON / PROCEDURE REASON: Prostate cancer (HCC) * * * * Physician Interpretation * * * * EXAMINATION: MRI PELVIS WITHOUT AND WITH IV CONTRAST (MULTIPARAMETRIC PROSTATE MRI) CLINICAL HISTORY: 72 years old male with elevated PSA and prostate biopsy from 05/08/2022 showing Bruce 3+3 = 7 left base and Samantha 3+3 = 6 in left mid gland, left apex, right mid gland and apex. Previous biopsy: As above. PSA: 5.5 ng/mL (06/04/2022) ; Prior therapy: None. TECHNIQUE: Multiparametric MRI of the prostate and pelvis performed on a 3T scanner utilizing phase pelvic coil. Sequences obtained: multiplanar T2-WI with small FOV; Axial DWI with multiple B-values and creation of ADC-maps; DCE T1-weighted images through the prostate obtained before, during and after the administration of intravenous gadolinium; prostate dimensions and volume were obtained using a semi-automated software ([employer]). CONTRAST: IV: 20 cc of Dotarem. COMPARISON: None RESULT: Prostate: Dimensions: 4.9 x 4.7 x 4.3 cm corresponding to a volume of approximately 45 cc. Post biopsy hemorrhage: Absent Peripheral zone: Diffusely inhomogeneous. Area most suspicious for clinically significant prostate carcinoma extending from near the base to the apex in the posterior lateral and posterior left peripheral zone. It is most consistent with clinically significant prostate carcinoma and considered PIRADS 5. PIRADS 5 Lesion #1 Location: Posterior lateral and posterior left peripheral zone from base to apex Greatest dimension: 2.3 cm (4:18) T2 WI: Hypointense DWI/ADC: Fluid restriction DCE: Positive Extraprostatic extension: Bulging the capsule and compressing adjacent left neurovascular bundle. PIRADS 5 Transition zone: Inhomogeneous transition zone. No definite areas of radiographic findings to suggest clinically significant prostate carcinoma. Central zone: No significant additional findings. Neurovascular bundle: Left neurovascular bundle is compressed by lesion in the left peripheral zone. Seminal vesicles: Unremarkable. Adjacent Organ Involvement: Not applicable. Lymph nodes: Enlarged left external iliac lymph nodes measuring up to 1.3 cm on 12:57. Prominent right external iliac lymph nodes but all of them measure just under 1.0 cm short axis. Left inguinal lymph node measuring up to 1.9 cm short axis. Right inguinal lymph node measuring up to 1.5 cm short axis. Both are seen on 12:116. Bladder: Unremarkable. Pelvic bones: Enhancing lesion right femoral neck as seen on 8:158. Measures 1.2 cm. 1.4 cm lesion right iliac bone on 8:40. 1.3 cm lesion posterior right acetabulum as seen on 17:16. Other Findings: No significant additional findings. IMPRESSION: 1. Large lesion seen left peripheral zone consistent with clinically significant prostate carcinoma (PIRADS 5). It bulges the capsule and compresses the adjacent neurovascular bundle. 2. Enlarged pelvic lymph nodes left side greater than right. Enlarged bilateral inguinal lymph nodes. 3. Several bone lesions raising concern for possible metastatic disease to bone. Number of targets created for MR/US fusion biopsy: Peripheral zone: 1 Transition zone: 0 If present, targets were numbered in order of level of suspicion for clinically significant prostate cancer (Bruce score 3 + 4 or higher). PI-RADS v2.1 Assessment Categories: PI-RADS 1: Clinically significant cancer is highly unlikely PI-RADS 2: Clinically significant cancer is unlikely PI-RADS 3: Clinically significant cancer is equivocal PI-RADS 4: Clinically significant cancer is likely PI-RADS 5: Clinically significant cancer is highly likely (V.05.2018) Manager Urgent Care: SAMANTHA Transcribe Date/Time: Jul 21 2022 10:47A Dictated by : HONEY LAMB MD This examination was interpreted and the report reviewed and electronically signed by: HONEY LAMB MD on Jul 21 2022 11:03AM EST [id number] [facility] SYLVIE CHIU ([id number]) 1950 [facility] Date Time Provider Department 06/19/22 VAZQUEZ PAGE During your visit today, we recorded the following information about you: Julia Hernandez Cma 06/19/2022 11:56 AM Signed Decipher test sent. Julia Hernandez Cma Allergies As of Date: 06/19/2022 (No Known Allergies) Date Reviewed: 06/19/2022 Reviewed by: Vazquez Page DO - Fully Assessed Reason for Visit: Orders [681] Prescriptions as of 06/19/2022 - celecoxib (CELEBREX) 200 mg capsule Take 200 mg by mouth twice daily. - iv contrast (will be provided with radiology test) MRI Prostate Inject, intravenously, once for 1 dose. No IV access, insert saline lock prior to the beginning of sedation, infusion, injection of imaging exam. Discontinue saline lock post exam. If Pt. has a central line or IVAD, may access for administration according to line specific nursing protocol. Once exam is complete flush line and de-access according to line specific nursing protocol in the MR contrast administration guidelines link. - tamsulosin (FLOMAX) 0.4 mg Take 1 capsule by mouth once daily. 30 minutes after meal - acetaminophen (TYLENOL) 325 mg tablet Take 650 mg by mouth as needed. - BIPAP ASV Adaptive Servo-Ventilation (ASV) with end-expiratory pressure (EEP) of 9 cmH2O and variable pressure support of 3-10 cmH2O. mask (pt pref), chin strap, heated tubing AND humidity, filters. Lifetime supplies. APRIL: G47.33. - ALBUTEROL INHALATION Inhale 1 Inhalation as instructed as needed. hot humid weather - lisinopril-hydrochlorothiaz narinder (PRINZIDE,ZESTORETIC) 20-12.5 mg per tablet Take 1 tablet by mouth once daily. - modafinil(PROVIGIL 200 MG TAB) Take one(1) tablet daily in the morning. - pantoprazole (PROTONIX) 40 mg ORAL TbEC Take one(1) tablet daily. - BIPAP Please supply patient with Full face mask, Santana [place] VIP [phone]. 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] 05/31/2015 11/14/2015 Trigeminal neuralgia of right side of face [G50*05/31/2015 11/14/2015 Hemicrania continua [G44.51] 08/10/2015 11/14/2015 Carpal tunnel syndrome of right wrist [G56.01] 11/14/2015 Essential hypertension [I10] 11/14/2015 APRIL treated with BiPAP [G47.33] 11/14/2015 Gastroesophageal reflux disease without esophag*11/14/2015 Class 2 obesity with body mass index (BMI) of 3*11/14/2015 Cataract, nuclear sclerotic senile [H25.10] 04/03/2016 History of radial keratotomy [Z98.890] 04/03/2016 Hereditary and idiopathic peripheral neuropathy*04/29/2016 Fissure in ano [K60.2] 07/14/2016 LGI bleed [K92.2] 07/14/2016 Fever [R50.9] 10/29/2016 11/02/2016 Pneumonia [J18.9] 10/31/2016 06/23/2018 Primary osteoarthritis of right knee [M17.11] 06/01/2018 Primary localized osteoarthritis of right knee *06/08/2018 07/01/2018 Varicose veins of both lower extremities [I83.9*06/23/2018 S/P total knee replacement [Z96.659] 06/30/2018 Chronic pain of right knee [M25.561, G89.29] 07/28/2018 BMI 40.0-44.9, adult (HCC) [Z68.41] 10/01/2018 Encounter Status:Closed by JULIA HERNANDEZ CMA on 06/19/22 Normal [facility] CT PELVIS W IVCONon 06-09-20 [facility] No Panel Informationon 06-09 [facility] Absolute lymphocyte counton 03-03-2022 Lymphocytes Auto (Unsp spec) [#/Vol] 0.91 10*3/uL 0.83-4.51 [facility] Work Phone: Basophil percentageon 2021 Basophils/100 WBC (Bld) 0.8 % 0-1 [facility] Work Phone: Bilirubin [Mass/Vol] 0.40 mg/dL 0.20-1.00 [facility] Work Phone: Comment on above: For patients on eltr ombopag therapy, use of Dimension [place] TBIL is not recommended. Chloride [Moles/Vol] 106 mmol/L 98-107 [facility] Work Phone: Cholesterol [Mass/Vol] 153 mg/dL <200 [facility] Work Phone: Comment on above: <200 mg/dL Desirable 200-240 mg/dL Borderline >240 mg/dL High Risk Eosinophils/100 WBC (Bld) 2.7 % 0-5 [facility] Work Phone: Glucose [Mass/Vol] 106 mg/dL 74-106 [facility] Work Phone: Comment on above: Fasting Glucose resu lt from 100 to 125 mg/dL suggests IMPAIRED HOMEOSTASIS per A.D.A. criteria. Neutrophils (Bld) [#/Vol] 2.2 10*3/uL 2.0-7.7 [facility] Work Phone: Neutrophils/100 WBC (Bld) 60.7 % 47-70 [facility] Work Phone: Potassium [Moles/Vol] 4.2 mmol/L 3.5-5.1 [facility] Work Phone: Protein [Mass/Vol] 7.4 g/dL 6.4-8.2 [facility] Work Phone: Sodium [Moles/Vol] 140 mmol/L 136-145 [facility] Work Phone: Triglyceride [Mass/Vol] 120 mg/dL [facility] Work Phone: Comment on above: The drugs N-Acetylcy steine and Metamizole may falsely depress this assay.Serum Triglycerides Reference Interval Normal <150 mg/dL Borderline high 150 - 199 mg/dL High 200 - 499 mg/dL Very High > or = 500 mg/dL WBC (Bld) [#/Vol] 3.7 10*3/uL 4.4-11.0 [facility] Work Phone: Blood erythrocytes count (nu mber/volume)on 03-03-2022 RBC (Bld) [#/Vol] 4.75 10*6/uL 4.6-6.2 [facility] Work Phone: Blood hemoglobin measurement (mass/volume)on 03-03-2022 Hemoglobin (Bld) [Mass/Vol] 14.6 g/dL 13.0-16.5 [facility] Work Phone: [phone] Blood lymphocytes/100 leukoc yteson 03-03-2022 Lymphocytes/100 WBC (Bld) 24.7 % 19-41 [facility] Work Phone: Blood monocytes/100 leukocyt eson 03-03-2022 Monocytes/100 WBC (Bld) 10.3 % 0-10 [facility] Work Phone: Blood platelet mean volumeon 03-03-2022 Platelet mean volume (Bld) [Entitic vol] 12.2 fL 6.2-12.0 [facility] Work Phone: Determination of erythrocyte mean corpuscular volume (MCV)on 03-03-2022 MCV (RBC) [Entitic vol] 94.3 fL 80-94 [facility] Work Phone: Hematocrit Auto (Bld) [Volum e fraction]on 03-03-2022 Hematocrit (Bld) [Volume fraction] 44.8 % 40-54 [facility] Work Phone: Laboratory - Chemistry and C hemistry - challengeon 03-03-2022 ALP [Catalytic activity/Vol] 81 U/L 45-117 [facility] Work Phone: ALT [Catalytic activity/Vol] 28 U/L 16-61 [facility] Work Phone: CO2 [Moles/Vol] 30.0 mmol/L 21.0-32.0 [facility] Work Phone: Globulin (S) [Mass/Vol] 3.5 g/dL 2.2-4.2 [facility] Work Phone: Urea nitrogen/Creatinine [Mass ratio] 15.1 mg/mg 10-20 [facility] Work Phone: Laboratory - Hematology and Cell countson 03-03-2022 Erythrocyte distribution width (RBC) [Entitic vol] 47.8 fL 35.1-43.9 [facility] Work Phone: Erythrocyte distribution width (RBC) [Ratio] 13.8 % 11.6-14.6 [facility] Work Phone: Immature granulocytes/100 WBC (Bld) 0.800 % 0.0-0.9 [facility] Work Phone: Comment on above: IG% - Immature Granu locytes (promyelocytes, myelocytes and metamyelocytes) > 1% indicates that a LEFT SHIFT is Present. MCH (RBC) [Entitic mass] 30.7 pg 27.0-32.0 [facility] Work Phone: Nucleated RBC/100 WBC (Bld) [Ratio] 0 % 0-5 [facility] Work Phone: MCHC Auto (RBC) [Mass/Vol]on 03-03-2022 MCHC (RBC) [Mass/Vol] 32.6 g/dL 32-36 [facility] Work Phone: No Panel Informationon 03-03 Estimated GFR (MDRD) Amer 78 mL/min >60 [facility] Work Phone: Comment on above: GFR Calc Estimated GFR (MDRD) Non-Af Amer 64 mL/min >60 [facility] Work Phone: Comment on above: Non- GFR Calc Prostate Specific Antigen Total 5.69 ng/mL 0.0-4.0 [facility] Work Phone: Comment on above: This test was perfor med using the TPSA assay method for the[employer] chemistry system. Values obtained with differentassay methods cannot be used interchangably.When changing PSA assays in the course of monitoring apatient, additional sequential testing should be carriedout to confirm baseline values. Platelets bldon 03-03-2022 Platelets (Bld) [#/Vol] 127 10*3/uL 150-450 [facility] Work Phone: Serum or plasma albumin faustino urement (mass/volume)on 03-03-2022 Albumin [Mass/Vol] 3.9 g/dL 3.2-5.0 [facility] Work Phone: Serum or plasma albumin/glob ulin mass ratioon 03-03-2022 Albumin/Globulin [Mass ratio] 1.1 {ratio} 0.9-2.4 [facility] Work Phone: Serum or plasma calcium faustino urement (mass/volume)on 03-03-2022 Calcium [Mass/Vol] 8.9 mg/dL 8.5-10.1 [facility] Work Phone: Serum or plasma cholesterol in HDL measurement (mass/volume)on 03-03-2022 Cholesterol in HDL [Mass/Vol] 35 mg/dL [facility] Work Phone: Comment on above: The drugs N-Acetylcy steine and Metamizole may falsely depress this assay. Reference Range HDL <40 mg/dL Low HDL Cholesterol HDL >or= 60 mg/dL High HDL Cholesterol Serum or plasma cholesterol in VLDL measurement (mass/volume)on 03-03-2022 Cholesterol in VLDL [Mass/Vol] 24 mg/dL 5-40 [facility] Work Phone: Serum or plasma creatinine m easurement (mass/volume)on 03-03-2022 Creatinine [Mass/Vol] 1.19 mg/dL 0.70-1.30 [facility] Work Phone: Comment on above: The validity of the calculated GFR & GFRAA in patients over 70 years has not been determined. Clinical correlation is essential. Serum or plasma low density lipoprotein (LDL) cholesterol measurement (mass/volume)on 03-03-2022 Cholesterol in LDL [Mass/Vol] 94 mg/dL 0-130 [facility] Work Phone: Serum or plasma urea nitroge n measurement (mass/volume)on 03-03-2022 Urea nitrogen [Mass/Vol] 18 mg/dL 7-18 [facility] Work Phone: Thin prep Papanicolaou smear with manual screeningon 03-03-2022 Thin prep Papanicolaou smear with manual screening 24 U/L 15-37 [facility] Work Phone: Thin prep Papanicolaou smear with manual screening 4 5-15 [facility] Work Phone: XR KNEE GENERAL 4V AP BOTH/P A BOTH/LAT/MERC LEFTon 12-24-2021 [facility] XR CHEST 2V FRONTAL/LATon XR CHEST 2V FRONTAL/LAT * * *Final Report* * * DATE OF EXAM: Aug 15 2021 10:21AM [facility] 5291 - XR CHEST 2V FRONTAL/LAT / PROCEDURE REASON: J18.9 * * * * Physician Interpretation * * * * EXAMINATION: CHEST RADIOGRAPH (2 VIEW FRONTAL and LATERAL) CLINICAL HISTORY: J18.9 MQ: XC2_6 EXAM DATE/TIME: 08/15/2021 10:21 AM COMPARISON: 04/06/2018; 11/14/2016 RESULT: Lines, tubes, and devices: None. Lungs and pleura: Stable partially calcified pulmonary nodule left lung base. Shallow lung volumes. No consolidation. No lung mass. No pleural effusion. No pneumothorax. Cardiomediastinal silhouette: Stable cardiomediastinal silhouette. Bones and soft tissues: Degenerative changes are present within the thoracic spine. IMPRESSION: No acute radiographic abnormality. Manager Urgent Care: PSCB Transcribe Date/Time: Aug 15 2021 11:12A Dictated by : ALBERT WHITE MD This examination was interpreted and the report reviewed and electronically signed by: ALBERT WHITE MD on Aug 15 2021 11:14AM EST [id number] Normal [facility] No Panel Information [facility] Vital Signs Date Time Vital Sign Value Performing Clinician Facility 03-02-2025 07:55-0400 Body height 180.3 cm Natan Alcazar DO Work Phone: [facility] 03-02-2025 07:55-0400 Body mass index (BMI) [Ratio] 41.7 kg/m2 Natan Alcazar DO Work Phone: [facility] 03-02-2025 07:55-0400 Body weight 135.63 kg Natan Alcazar DO Work Phone: [facility] 12-23-2024 09:45-0400 Body mass index (BMI) [Ratio] 42.46 kg/m2 Hussein Ordonez MD Work Phone: [facility] 12-23-2024 09:45-0400 Body weight 142.02 kg Hussein Ordonez MD Work Phone: [facility] 08-02-2024 09:14-0500 Body height 182.9 cm Natan Alcazar DO Work Phone: [facility] 08-02-2024 09:14-0500 Body mass index (BMI) [Ratio] 42.72 kg/m2 Natan Alcazar DO Work Phone: [facility] 08-02-2024 09:14-0500 Body weight 142.88 kg Natan Alcazar DO Work Phone: [facility] 02-18-2024 08:18-0400 Diastolic blood pressure 74 mm[Hg] Francisco Davis APPL[employer]ES [employer]KER.[employer]PER[employer]OR [employer] Work Phone: [facility] 02-18-2024 08:18-0400 Heart rate 52 /min Francisco Davis APRN.SUPER[employer]OR [employer] Work Phone: [facility] 02-18-2024 08:18-0400 Systolic blood pressure 150 mm[Hg] Francisco Davis APPLIANCES SAMPLE MAKER.[employer]PER[employer]OR [employer] Work Phone: [facility] 02-18-2024 08:15-0400 Body height 183.4 cm Francisco Davis APRN.SUPER[employer]OR [employer] Work Phone: [facility] 02-18-2024 08:15-0400 Body mass index (BMI) [Ratio] 42.49 kg/m2 Francisco Davis APPLIANCES SAMPLE MAKER.[employer]PER[employer] Work Phone: [facility] 02-18-2024 08:15-0400 Body temperature 97.81 [degF] Francisco Davis APPLIANCES SAMPLE MAKER.[employer]PER[employer] Work Phone: [facility] 02-18-2024 08:15-0400 Body weight 142.88 kg Francisco Davis APPLIANCES SAMPLE [employer]KER.[employer] Work Phone: [facility] 01-29-2024 15:40-0400 Diastolic blood pressure 67 mm[Hg] Selwyn Michelle MD Work Phone: [facility] 01-29-2024 15:40-0400 Heart rate 71 /min Selwyn Michelle MD Work Phone: [facility] 01-29-2024 15:40-0400 Systolic blood pressure 133 mm[Hg] Selwyn Michelle MD Work Phone: [facility] 12-17-2023 09:26-0400 Body weight 145.1 kg Hussein Ordonez MD Work Phone: [facility] 12-14-2023 13:57-0400 Body height 180.3 cm Alex Erazo MD Work Phone: [facility] 12-14-2023 13:57-0400 Body temperature 97.59 [degF] Alex Erazo MD Work Phone: [facility] 12-14-2023 13:57-0400 Body weight 146.06 kg Alex Erazo MD Work Phone: [facility] 12-14-2023 13:57-0400 Diastolic blood pressure 73 mm[Hg] Alex Erazo MD Work Phone: [facility] 12-14-2023 13:57-0400 Heart rate 58 /min Alex Erazo MD Work Phone: [facility] 12-14-2023 13:57-0400 Systolic blood pressure 117 mm[Hg] Alex Erazo MD Work Phone: [facility] 06-15-2023 11:52-0400 Body weight 143.79 kg Hussein Ordonez MD Work Phone: [facility] 03-12-2023 12:46-0400 Diastolic blood pressure 63 mm[Hg] Patricia Naso APPLIANCES S[employer] MAKER.[employer]PER[employer]OR [employer] Work Phone: [facility] 03-12-2023 12:46-0400 Systolic blood pressure 119 mm[Hg] Patricia Naso APPLIANCES SAMPLE MAKER.[employer]PER[employer] Work Phone: [facility] 03-12-2023 12:45-0400 Body temperature 97.5 [degF] Patricia Naso APPLIANCES SAMPLE MAKER.[employer]PER[employer] Work Phone: [facility] 03-12-2023 12:45-0400 Body weight 139.44 kg Patricia Naso APPLIANCES SAMPLE MAKER.[employer]PER[employer] Work Phone: [facility] 03-12-2023 12:45-0400 Heart rate 60 /min Patricia Naso APPLIANCES S[employer] MAKER.[employer]PER[employer] Work Phone: [facility] 03-12-2023 12:45-0400 Respiratory rate 18 /min Patricia Naso APPLIANCES S[employer] MAKER.[employer]PER[employer] Work Phone: [facility] 03-12-2023 12:45-0400 SaO2% (BldA) [Mass fraction] 100 % Patricia Naso [employer]PLIANCES S[employer]KER.[employer]PER[employer] Work Phone: [facility] 03-06-2023 18:02-0400 Body height 182.88 cm [facility] 03-06-2023 18:02-0400 Body mass index (BMI) [Ratio] 42.3 kg/m2 [facility] 03-06-2023 18:02-0400 Body temperature 97.5 [degF] [facility] 03-06-2023 18:02-0400 Body weight 141.52 kg [facility] 03-06-2023 18:02-0400 Diastolic blood pressure 70 mm[Hg] [facility] 03-06-2023 18:02-0400 Heart rate 71 /min [facility] 03-06-2023 18:02-0400 Respiratory rate 18 /min [facility] 03-06-2023 18:02-0400 SaO2% (BldA) [Mass fraction] 96 % [facility] 03-06-2023 18:02-0400 Systolic blood pressure 130 mm[Hg] [facility] 01-12-2023 10:27-0400 Body weight 145.79 kg Hussein Ordonez MD Work Phone: [facility] 12-15-2022 18:12-0400 Body mass index (BMI) [Ratio] 43.8 kg/m2 [facility] 12-15-2022 18:12-0400 Body temperature 98.1 [degF] [facility] 12-15-2022 18:12-0400 Body weight 146.51 kg [facility] 12-15-2022 18:12-0400 Diastolic blood pressure 60 mm[Hg] [facility] 12-15-2022 18:12-0400 Heart rate 82 /min [facility] 12-15-2022 18:12-0400 Respiratory rate 18 /min [facility] 12-15-2022 18:12-0400 SaO2% (BldA) [Mass fraction] 96 % [facility] 12-15-2022 18:12-0400 Systolic blood pressure 122 mm[Hg] [facility] 12-10-2022 10:38-0400 Body weight 148.73 kg Hussein Ordonez MD Work Phone: [facility] 12-09-2022 09:04-0400 Body temperature 98.1 [degF] Patricia Naso APPLIANCES SAMPLE MAKER.SUPERVISOR [employer] Work Phone: [facility] 12-09-2022 09:04-0400 Body weight 148.73 kg Patricia Naso APPLIANCES SAMPLE MAKER.SUPERVISOR [employer] Work Phone: [facility] 12-09-2022 09:04-0400 Diastolic blood pressure 70 mm[Hg] Patricia Naso APPLIANCES SAMPLE MAKER.SUPERVISOR [employer] Work Phone: [facility] 12-09-2022 09:04-0400 Heart rate 57 /min Patricia Naso APPLIANCES SAMPLE MAKER.SUPERVISOR [employer] Work Phone: [facility] 12-09-2022 09:04-0400 Respiratory rate 18 /min Patricia Naso APPLIANCES SAMPLE MAKER.SUPERVISOR [employer] Work Phone: [facility] 12-09-2022 09:04-0400 SaO2% (BldA) [Mass fraction] 97 % Patricia Naso APPLIANCES SAMPLE MAKER.SUPERVISOR [employer] Work Phone: [facility] 12-09-2022 09:04-0400 Systolic blood pressure 136 mm[Hg] Patricia Naso APPLIANCES SAMPLE MAKER.SUPER[employer]OR [employer] Work Phone: [facility] 12-03-2022 10:47-0500 Body weight 149.19 kg Hussein Ordonez MD Work Phone: [facility] 11-26-2022 10:10-0500 Body weight 147.33 kg Hussein Ordonez MD Work Phone: [facility] 11-19-2022 13:21-0500 Body weight 147.37 kg Hussein Ordonez MD Work Phone: [facility] 11-11-2022 10:39-0500 Body weight 148.1 kg Hussein Ordonez MD Work Phone: [facility] 09-09-2022 08:28-0500 Body temperature 98.29 [degF] Injection Mc Work Phone: [facility] 09-09-2022 08:28-0500 Diastolic blood pressure 66 mm[Hg] Injection Mc Work Phone: [facility] 09-09-2022 08:28-0500 Heart rate 51 /min Injection Mc Work Phone: [facility] 09-09-2022 08:28-0500 SaO2% (BldA) [Mass fraction] 96 % Injection Mc Work Phone: [facility] 09-09-2022 08:28-0500 Systolic blood pressure 101 mm[Hg] Injection Mc Work Phone: [facility] 09-04-2022 12:06-0500 Body height 180.3 cm Vazquez Page DO Work Phone: [facility] 09-04-2022 12:06-0500 Body weight 146.97 kg Jayram Camilo DO Work Phone: [facility] 08-11-2022 13:00-0500 Body height 180.2 cm Rickie Agosto MD Work Phone: [facility] 08-11-2022 13:00-0500 Body temperature 98.01 [degF] Rickie Agosto MD Work Phone: [facility] 08-11-2022 13:00-0500 Body weight 147.87 kg Rickie Agosto MD Work Phone: [facility] 08-11-2022 13:00-0500 Diastolic blood pressure 76 mm[Hg] Rickie Agosto MD Work Phone: [facility] 08-11-2022 13:00-0500 Heart rate 73 /min Rickie Agosto MD Work Phone: [facility] 08-11-2022 13:00-0500 Respiratory rate 16 /min Rickie Agosto MD Work Phone: [facility] 08-11-2022 13:00-0500 SaO2% (BldA) [Mass fraction] 97 % Rickie Agosto MD Work Phone: [facility] 08-11-2022 13:00-0500 Systolic blood pressure 144 mm[Hg] Rickie Agosto MD Work Phone: [facility] 07-29-2022 13:07-0400 Body height 180.3 cm Jayram Camilo DO Work Phone: [facility] 07-29-2022 13:07-0400 Body weight 145.15 kg Jayram Camilo DO Work Phone: [facility] 07-29-2022 13:07-0400 Diastolic blood pressure 76 mm[Hg] Jayram Camilo DO Work Phone: [facility] 07-29-2022 13:07-0400 Systolic blood pressure 128 mm[Hg] Jayram Camilo DO Work Phone: [facility] 06-24-2022 13:34-0400 Body weight 147.78 kg Hussein Ordonez MD Work Phone: [facility] 06-19-2022 09:07-0400 Body height 185.4 cm Vazquez Page DO Work Phone: [facility] 06-19-2022 09:07-0400 Body weight 145.15 kg Vazquez Page DO Work Phone: [facility] 03-03-2022 15:40-0400 Body height 182.88 cm [facility] Work Phone: 03-03-2022 15:40-0400 Body mass index (BMI) [Ratio] 43.7 kg/m2 [facility] Work Phone: 03-03-2022 15:40-0400 Body temperature 97.8 [degF] [facility] Work Phone: 03-03-2022 15:40-0400 Body weight 146.05 kg [facility] Work Phone: 03-03-2022 15:40-0400 Diastolic blood pressure 70 mm[Hg] [facility] Work Phone: 03-03-2022 15:40-0400 Heart rate 73 /min [facility] Work Phone: 03-03-2022 15:40-0400 Respiratory rate 18 /min [facility] Work Phone: 03-03-2022 15:40-0400 SaO2% (BldA) [Mass fraction] 96 % [facility] Work Phone: 03-03-2022 15:40-0400 Systolic blood pressure 128 mm[Hg] [facility] Work Phone: Encounters Encounter Date Encounter Type Care Provider Facility Start: 03-03-2025 End: 03-03-2025 Office outpatient visit 15 minutes Selwyn Leiva PA-C Work Phone: Orthopaedics Comment on above: Status post total ri ght knee replacement (Primary Dx); Primary osteoarthritis of left knee Start: 03-03-2025 End: 03-03-2025 ambulatory NORMA DAVIES Facility:[facility] Start: 03-03-2025 End: 03-03-2025 Subsequent hospital visit by physician Radio General Shayla Mathews Work Phone: Radiology Comment on above: Left knee pain, unsp ecified chronicity [M25.562] Start: 03-02-2025 End: 03-02-2025 Patient encounter procedure Natanricha Rowe Perla VERONICA Work Phone: Orthopaedics Comment on above: 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) Start: 03-02-2025 End: 03-02-2025 ambulatory NORMA DAVIES Facility:[facility] Start: 01-19-2025 End: 01-19-2025 Emergency department patient visit NORMA DAVIES Facility:[facility] Start: 12-23-2024 End: 12-23-2024 ambulatory NORMA DAVIES Facility:[facility] Start: 12-23-2024 End: 12-23-2024 Office outpatient visit 25 minutes Hussein Ordonez MD Work Phone: Radiation Oncology Comment on above: Encounter for follow -up surveillance of prostate cancer (Primary Dx) Start: 12-19-2024 End: 12-19-2024 Orders Only Hussein Ordonez MD Work Phone: Radiation Oncology Comment on above: Encounter for follow -up surveillance of prostate cancer (Primary Dx) Start: 09-15-2024 End: 09-15-2024 ambulatory [facility] Comment on above: Wound Care Start: 09-15-2024 End: 09-15-2024 Patient encounter procedure [facility] Start: 09-14-2024 End: 09-14-2024 Patient encounter procedure [facility] Start: 09-14-2024 End: 09-14-2024 ambulatory NORMA [facility] Comment on above: Wound Care Start: 09-13-2024 End: 09-13-2024 Patient encounter procedure [facility] Start: 09-13-2024 End: 09-13-2024 ambulatory NORMAChelsea DAVIES [facility] Comment on above: Wound Care Start: 09-12-2024 End: 09-12-2024 Patient encounter procedure [facility] Start: 09-12-2024 End: 09-12-2024 ambulatory NORMAChelsea DAVIES [facility] Comment on above: Wound Care Start: 09-09-2024 End: 09-09-2024 Patient encounter procedure [facility] Start: 09-09-2024 End: 09-09-2024 ambulatory NORMAChelsea DAVIES [facility] Comment on above: Wound Care Start: 09-07-2024 End: 09-07-2024 Patient encounter procedure [facility] Start: 09-07-2024 End: 09-07-2024 ambulatory NORMAChelsea DAVIES [facility] Comment on above: Wound Care Start: 09-06-2024 End: 09-06-2024 Patient encounter procedure [facility] Start: 09-06-2024 End: 09-06-2024 ambulatory NORMA DAVIES [facility] Comment on above: Wound Care Start: 09-05-2024 End: 09-05-2024 Patient encounter procedure [facility] Start: 09-05-2024 End: 09-05-2024 ambulatory NORMA Francis DAVIES [facility] Comment on above: Wound Care Start: 08-31-2024 End: 08-31-2024 Patient encounter procedure [facility] Start: 08-31-2024 End: 08-31-2024 ambulatory NORMA Francis DAVIES [facility] Comment on above: Wound Care Start: 08-30-2024 End: 08-30-2024 Patient encounter procedure [facility] Start: 08-30-2024 End: 08-30-2024 ambulatory NORMA Francis [facility] Comment on above: Wound Care Start: 08-29-2024 End: 08-29-2024 Patient encounter procedure [facility] Start: 08-29-2024 End: 08-29-2024 ambulatory NORMA Francis DAVIES [facility] Comment on above: Wound Care Start: 08-22-2024 End: 08-23-2024 ambulatory NORMA Francis DAVIES [facility] Comment on above: Wound Care Start: 08-22-2024 End: 08-22-2024 Patient encounter procedure [facility] Start: 08-19-2024 End: 08-19-2024 Patient encounter procedure [facility] Start: 08-19-2024 End: 08-19-2024 ambulatory NORMA Francis DAVIES [facility] Comment on above: Wound Care Start: 08-18-2024 End: 08-19-2024 ambulatory NORMA Francis DAVIES [facility] Comment on above: Wound Care Start: 08-18-2024 End: 08-18-2024 Patient encounter procedure [facility] Start: 08-17-2024 End: 08-17-2024 Patient encounter procedure [facility] Start: 08-17-2024 End: 08-17-2024 ambulatory NORMA Francis DAVIES [facility] Comment on above: Wound Care Start: 08-16-2024 End: 08-17-2024 ambulatory NATAN [facility] Comment on above: Wound Care Start: 08-16-2024 End: 08-16-2024 Patient encounter procedure Natan Alcazar DO Work Phone: Orthopaedics Comment on above: 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 (Primary Dx) Start: 08-15-2024 End: 08-16-2024 ambulatory NORMA Francis DAVIES [facility] Comment on above: Wound Care Start: 08-15-2024 End: 08-15-2024 Patient encounter procedure [facility] Start: 08-12-2024 End: 08-12-2024 Patient encounter procedure [facility] Start: 08-12-2024 End: 08-12-2024 ambulatory NORMA [facility] Comment on above: Wound Care Start: 08-11-2024 End: 08-11-2024 Patient encounter procedure [facility] Start: 08-11-2024 End: 08-11-2024 ambulatory NORMAChelsea DAVIES [facility] Comment on above: Wound Care Start: 08-10-2024 End: 08-10-2024 Patient encounter procedure [facility] Start: 08-10-2024 End: 08-10-2024 ambulatory NORMA [facility] Comment on above: Wound Care Start: 08-09-2024 End: 08-10-2024 ambulatory NORMAChelsea DAVIES [facility] Comment on above: Wound Care Start: 08-09-2024 End: 08-09-2024 Patient encounter procedure [facility]n [facility] Start: 08-08-2024 End: 08-10-2024 ambulatory NORMAChelsea [facility] Comment on above: Wound Care Start: 08-08-2024 End: 08-08-2024 Patient encounter procedure [facility] Start: 08-05-2024 End: 08-05-2024 Patient encounter procedure [facility] Start: 08-05-2024 End: 08-05-2024 ambulatory NORMA Francis DAVIES [facility] Comment on above: Wound Care Start: 08-04-2024 End: 08-04-2024 Patient encounter procedure [facility] Start: 08-04-2024 End: 08-04-2024 ambulatory NORMA Francis DAVIES [facility] Comment on above: Wound Care Start: 08-03-2024 End: 08-04-2024 ambulatory NORMA L DAVIES [facility] Comment on above: Wound Care Start: 08-03-2024 End: 08-03-2024 Patient encounter procedure [facility] Start: 08-02-2024 End: 08-02-2024 Subsequent hospital visit by physician Xr [facility] Radiology Comment on above: Right hand pain [M79 .641] Start: 08-02-2024 End: 08-02-2024 ambulatory NATAN VILLALPANDOERMOTT Facility:[facility] Start: 08-02-2024 End: 08-02-2024 Patient encounter procedure Natan Alcazar DO Work Phone: Orthopaedics Comment on above: 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); Right hand pain Start: 08-01-2024 End: 08-01-2024 Patient encounter procedure [facility] Start: 08-01-2024 End: 08-01-2024 ambulatory NORMA L DAVIES [facility] Comment on above: Wound Care Start: 07-29-2024 End: 08-01-2024 ambulatory NORMA L DAVIES [facility] Comment on above: Wound Care Start: 07-29-2024 End: 07-29-2024 Patient encounter procedure [facility] Start: 07-28-2024 End: 07-28-2024 Patient encounter procedure [facility] Start: 07-28-2024 End: 07-28-2024 ambulatory NORMA L DAVIES [facility] Comment on above: Wound Care Start: 07-27-2024 End: 07-28-2024 ambulatory NORMA L DAVIES [facility] Comment on above: Wound Care Start: 07-27-2024 End: 07-27-2024 Patient encounter procedure [facility] Start: 07-26-2024 End: 07-26-2024 Patient encounter procedure [facility] Start: 07-26-2024 End: 07-26-2024 ambulatory NORMA [facility] Comment on above: Wound Care Start: 07-25-2024 End: 07-25-2024 Patient encounter procedure [facility] Start: 07-25-2024 End: 07-25-2024 ambulatory UNKNOWN PROVIDER [facility] Comment on above: Wound Care Start: 07-22-2024 End: 07-22-2024 Patient encounter procedure [facility] Start: 07-22-2024 End: 07-22-2024 ambulatory UNKNOWN PROVIDER [facility] Comment on above: Wound Care Start: 07-21-2024 End: 07-22-2024 ambulatory UNKNOWN PROVIDER [facility] Comment on above: Wound Care Start: 07-21-2024 End: 07-21-2024 Patient encounter procedure [facility] Start: 07-20-2024 End: 07-20-2024 Patient encounter procedure [facility] Start: 07-20-2024 End: 07-20-2024 ambulatory NORMA DAVIES [facility] Comment on above: Wound Care Start: 07-19-2024 End: 07-20-2024 ambulatory NORMA Francis DAVIES [facility] Comment on above: Wound Care Start: 07-19-2024 End: 07-19-2024 Patient encounter procedure [facility] Start: 07-18-2024 End: 07-19-2024 ambulatory NORMA L SAMSON [facility] Comment on above: Wound Care Start: 07-18-2024 End: 07-18-2024 Patient encounter procedure [facility] Start: 07-15-2024 End: 07-15-2024 Patient encounter procedure [facility] Start: 07-15-2024 End: 07-15-2024 ambulatory NORMA L SAMSON [facility] Comment on above: Wound Care Start: 07-14-2024 End: 07-14-2024 Patient encounter procedure [facility] Start: 07-14-2024 End: 07-15-2024 ambulatory Lee Wayne MD Work Phone: Orthopaedics Comment on above: Hand/wrist injection Wound Care Start: 07-13-2024 End: 07-13-2024 Patient encounter procedure [facility] Start: 07-13-2024 End: 07-13-2024 ambulatory NORMA L DAVIES [facility] Comment on above: Wound Care Start: 07-12-2024 End: 07-12-2024 Patient encounter procedure [facility] Start: 07-12-2024 End: 07-12-2024 ambulatory NORMA L DAVIES [facility] Comment on above: Wound Care Start: 07-11-2024 End: 07-11-2024 Patient encounter procedure [facility] Start: 07-11-2024 End: 07-11-2024 ambulatory NORMA L DAVIES [facility] Comment on above: Wound Care Start: 07-07-2024 End: 07-07-2024 Telephone encounter Lee Wayne MD Work Phone: Orthopaedics Comment on above: Patient Question Start: 07-06-2024 End: 07-06-2024 Telephone encounter Seda OTTO Work Phone: Hematology/Oncology Start: 07-05-2024 End: 07-05-2024 ambulatory LEE WAYNE Facility:[facility] Start: 07-05-2024 End: 07-05-2024 Patient encounter procedure Lee Wayne MD Work Phone: Orthopaedics Comment on above: 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) Start: 06-24-2024 End: 06-24-2024 ambulatory NORMA DAVIES Facility:[facility] Start: 06-24-2024 End: 06-24-2024 Office outpatient visit 10 minutes Hussein Ordonez MD Work Phone: Radiation Oncology Comment on above: Radiation proctitis (Primary Dx); Radiation cystitis; Radiation injury of bowel, sequela Start: 06-06-2024 End: 06-06-2024 ambulatory NORMA DAVIES Facility:[facility] Start: 05-24-2024 End: 05-24-2024 ambulatory LEE WAYNE Facility:[facility] Start: 05-24-2024 End: 05-24-2024 Patient encounter procedure Lee Wayne MD Work Phone: Orthopaedics Comment on above: Carpal tunnel syndro me on left (Primary Dx) Start: 04-28-2024 Refill Hussein Ordonez MD Work Phone: Radiation Oncology Comment on above: Refill Request Start: 04-26-2024 End: 04-26-2024 ambulatory LEE WAYNE Facility:[facility] Start: 04-26-2024 End: 04-26-2024 Patient encounter procedure Afsaneh Hansen PA-C Work Phone: Orthopaedics Comment on above: Carpal tunnel syndro me on left (Primary Dx) Start: 04-15-2024 End: 04-15-2024 ambulatory NORMA DAVIES Facility:[facility] Start: 03-29-2024 Telephone encounter Lee covington MD Work Phone: Orthopaedics Comment on above: Schedule Surgery Start: 03-29-2024 End: 03-29-2024 Patient encounter procedure Lee Wayne MD Work Phone: Orthopaedics Comment on above: Carpal tunnel syndro me of left wrist (Primary Dx) Start: 03-29-2024 End: 03-29-2024 ambulatory LEE WAYNE Facility:[facility] Start: 03-29-2024 End: 03-29-2024 Subsequent hospital visit by physician Radio General Macielna Reid Work Phone: Radiology Comment on above: Pain [R52] Start: 03-20-2024 Orders Only Patria montgomery PA-C Work Phone: Appointment Center Comment on above: Pain (Primary Dx) Start: 03-02-2024 End: 03-02-2024 Subsequent hospital visit by physician Karla [facility] Radiology Comment on above: Pain in thoracic spi ne [M54.6] Start: 03-01-2024 End: 03-01-2024 ambulatory Norma Davies SAWDUST DRIER Facility:[facility] Start: 02-19-2024 End: 02-19-2024 ambulatory NORMA Francis DAVIES Facility:[facility] Start: 02-19-2024 End: 02-19-2024 Patient encounter procedure Selwyn Michelle MD Work Phone: Urology Comment on above: Prostate cancer (HCC ) (Primary Dx); Benign prostatic hyperplasia with incomplete bladder emptying; History of prostate cancer Start: 02-18-2024 End: 02-18-2024 Patient encounter procedure Francisco Davis APRN.SUPERVISOR [employer] Work Phone: Rheumatology Comment on above: Inflammatory arthrit is (Primary Dx); Encounter for long-term (current) use of NSAIDs Start: 02-02-2024 Refill Alex Erazo MD Work Phone: Rheumatology Comment on above: Refill Request Start: 02-01-2024 End: 02-01-2024 Subsequent hospital visit by physician Rena [facility] Rej Work Phone: Radiology Comment on above: Pain in joint, multi ple sites [M25.50] Start: 01-29-2024 End: 01-29-2024 ambulatory NORMA DAVIES Facility:[facility] Start: 01-29-2024 End: 01-29-2024 Patient encounter procedure Selwyn Michelle MD Work Phone: Urology Comment on above: Prostate cancer (HCC ); Bladder neck obstruction; BMI 40.0-44.9, adult (HCC) Start: 01-12-2024 End: 01-12-2024 Orders Only Hussein Ordonez MD Work Phone: Radiation Oncology Comment on above: Dysuria (Primary Dx) Orders Bladder neck obstruc tion [N32.0] Start: 12-17-2023 End: 12-17-2023 Patient encounter procedure Hussein Ordonez MD Work Phone: Radiation Oncology Comment on above: Prostate cancer (HCC ) (Primary Dx); Bladder neck obstruction Start: 12-15-2023 Telephone encounter Alex Shetty MD Work Phone: Rheumatology Comment on above: Results Start: 12-14-2023 End: 12-14-2023 Patient encounter procedure Alex Erazo MD Work Phone: Rheumatology Comment on above: Pain in joint, multi ple sites (Primary Dx); Generalized osteoarthritis; Encounter for long-term (current) use of NSAIDs Start: 12-14-2023 Telephone encounter Valery Carson ( Coord) Radiology Comment on above: Appointment Start: 07-21-2023 Telephone encounter Hussein carrasco MD Work Phone: Radiation Oncology Start: 07-20-2023 End: 07-20-2023 Subsequent hospital visit by physician [facility] Radiology Comment on above: Prostate cancer (HCC ) [C61] Start: 07-07-2023 ambulatory Hussein Ordonez MD Work Phone: Radiation Oncology Comment on above: X-rays Start: 06-15-2023 End: 06-15-2023 Patient encounter procedure Hussein Ordonez MD Work Phone: Radiation Oncology Comment on above: Encounter for follow -up surveillance of prostate cancer (Primary Dx) Start: 04-10-2023 End: 04-10-2023 Office outpatient visit 15 minutes Selwyn Leiva PA-C Work Phone: Orthopaedics Comment on above: 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); Primary osteoarthritis of left knee Start: 04-10-2023 End: 04-10-2023 Subsequent hospital visit by physician [facility] Shayla [facility] Work Phone: Radiology Comment on above: Pain in left hip [M2 5.552] Start: 03-12-2023 End: 03-12-2023 ambulatory Patricia Naso APPLIANCES SAMPLE MAKER.SUPER[employer]OR [employer] Work Phone: Hematology/Oncology Comment on above: Prostate cancer (HCC ) (Primary Dx); Encounter for monitoring Lupron therapy; Diarrhea, unspecified type; Hypercalcemia Start: 03-12-2023 End: 03-12-2023 Patient encounter procedure Patricia Naso APPLIANCES SAMPLE MAKER.SUPERVISOR [employer] Work Phone: [facility] Start: 03-06-2023 End: 03-06-2023 ambulatory [facility] Work Phone: Start: 03-06-2023 End: 03-06-2023 Patient encounter procedure [facility]-Laboratory, Specimen Start: 03-04-2023 Refill Hussein Ordonez MD Work Phone: Radiation Oncology Comment on above: Refill Request Start: 02-05-2023 End: 02-05-2023 Patient encounter procedure Afsaneh RAMOS-C Work Phone: Orthopaedics Comment on above: Thumb pain, right (P rimary Dx); Primary osteoarthritis of first carpometacarpal joint of left hand; Peripheral vascular disease (HCC); BMI 40.0-44.9, adult (HCC) Start: 02-05-2023 End: 02-05-2023 Subsequent hospital visit by physician Radio General Shayla Mathews Work Phone: Radiology Comment on above: Left hand pain [M79. 642] Start: 01-30-2023 End: 01-30-2023 Patient encounter procedure Selwyn Leiva PA-C Work Phone: Orthopaedics Comment on above: 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 (Primary Dx) Start: 01-23-2023 Orders Only Afsaneh polo PA-C Work Phone: Orthopaedics Comment on above: Left hand pain (Prim tanmay Dx) Start: 01-12-2023 End: 01-12-2023 Patient encounter procedure Hussein Ordonez MD Work Phone: Radiation Oncology Comment on above: Prostate cancer (HCC ) (Primary Dx) Start: 12-24-2022 Refill Hussein Ordonez MD Work Phone: Radiation Oncology Comment on above: Refill Request Start: 12-16-2022 Patient encounter procedure Hussein Ordonez MD Work Phone: [facility] Start: 12-16-2022 Radiation Oncology Note Hussein Ordonez MD Work Phone: Radiation Oncology Comment on above: Completion Note Start: 12-10-2022 End: 12-10-2022 Patient encounter procedure Hussein Ordonez MD Work Phone: Radiation Oncology Comment on above: Prostate cancer (HCC ) (Primary Dx) Start: 12-09-2022 End: 12-09-2022 Patient encounter procedure Patricia Prasanna CABANSUPERVISOR [employer]SEMBL[employer] Work Phone: [facility] Start: 12-09-2022 End: 12-09-2022 ambulatory Injection Wero [facility] Work Phone: Hematology/Oncology Comment on above: Prostate cancer (HCC ) (Primary Dx) Prostate cancer (HCC ) (Primary Dx); Encounter for monitoring Lupron therapy; Hot flash due to medication Start: 12-03-2022 End: 12-03-2022 Patient encounter procedure Hussein Ordonez MD Work Phone: Radiation Oncology Comment on above: Prostate cancer (HCC ) (Primary Dx) Start: 12-02-2022 End: 12-02-2022 Orders Only Hussein Ordonez MD Work Phone: Radiation Oncology Comment on above: Leg swelling (Primar y Dx) Left leg swelling Leg swelling [M79.89 ] Start: 11-26-2022 End: 11-26-2022 Patient encounter procedure Hussein Ordonez MD Work Phone: Radiation Oncology Comment on above: Prostate cancer (HCC ) (Primary Dx) Start: 11-19-2022 End: 11-19-2022 Patient encounter procedure Hussein Ordonez MD Work Phone: Radiation Oncology Comment on above: Prostate cancer (HCC ) (Primary Dx) Start: 11-11-2022 End: 11-11-2022 Patient encounter procedure Hussein Ordonez MD Work Phone: Radiation Oncology Comment on above: Prostate cancer (HCC ) (Primary Dx) Start: 11-07-2022 Social Work Rohini OTTO Work Phone: Radiation Oncology Start: 10-23-2022 Patient encounter procedure Hussein Ordonez MD Work Phone: [facility] Start: 10-23-2022 Radiation Oncology Note Hussein Ordonez MD Work Phone: Radiation Oncology Comment on above: Simulation Note Start: 10-23-2022 Refill Hussein Ordonez MD Work Phone: Radiation Oncology Comment on above: Med Change Request Start: 09-26-2022 Telephone encounter Financial Navigator Wero Work Phone: Hematology/Oncology Comment on above: Benefits Investigati on Start: 09-12-2022 End: 09-12-2022 Patient encounter procedure Flynn Julian PA-C Work Phone: Orthopedics Comment on above: Dysfunction of right rotator cuff (Primary Dx) Start: 09-12-2022 End: 09-12-2022 Subsequent hospital visit by physician Karla Garcia Work Phone: Radiology Comment on above: Pain [R52] Start: 09-09-2022 End: 09-09-2022 ambulatory Injection Wero Hyman Mc Work Phone: Hematology/Oncology Comment on above: Prostate cancer (HCC ) (Primary Dx) Start: 09-04-2022 End: 09-04-2022 Patient encounter procedure Vazquez Page DO Work Phone: Urology Comment on above: Prostate cancer (HCC ) (Primary Dx); Benign prostatic hyperplasia with incomplete bladder emptying Start: 08-11-2022 End: 08-11-2022 ambulatory Rickie Agosto MD Work Phone: Hematology/Oncology Comment on above: Prostate cancer (HCC ) Start: 08-11-2022 End: 08-11-2022 Patient encounter procedure Rickie Agosto MD Work Phone: [facility] Comment on above: Prostate cancer (HCC ) (Primary Dx) Start: 08-07-2022 ambulatory HUSSEIN ORDONEZ Facility: [facility] Start: 08-07-2022 End: 08-07-2022 Subsequent hospital visit by physician [facility] Work Phone: [facility] [place] Comment on above: Prostate cancer (HCC ) [C61] Start: 07-29-2022 End: 07-29-2022 ambulatory NORMA DAVIES Facility:[facility] Start: 07-29-2022 End: 07-29-2022 Patient encounter procedure Vazquez Page DO Work Phone: [facility] Comment on above: Prostate cancer (HCC ) (Primary Dx); Benign prostatic hyperplasia with incomplete bladder emptying Start: 07-17-2022 ambulatory NORMA DAVIES [facility] ity:[facility] Start: 07-14-2022 Refill Sorin rodriguez MD Work Phone: Urology Comment on above: Refill Request Start: 06-24-2022 End: 06-24-2022 Patient encounter procedure Hussein Ordonez MD Work Phone: Radiation Oncology Comment on above: Testicular pain, lef t (Primary Dx); Prostate cancer (HCC) Start: 06-19-2022 End: 06-19-2022 Patient encounter procedure Vazquez Page DO Work Phone: Urology Comment on above: Prostate cancer (HCC ) (Primary Dx); Benign prostatic hyperplasia with incomplete bladder emptying Start: 06-10-2022 ambulatory Vazquez ovalle DO Work Phone: Urology Comment on above: Prostate Cancer Start: 06-09-2022 End: 06-09-2022 Subsequent hospital visit by physician [facility] Work Phone: Molecular Imaging Comment on above: Prostate cancer (HCC ) [C61] Start: 06-09-2022 End: 06-09-2022 Subsequent hospital visit by physician [facility] Radiology Comment on above: Prostate cancer (HCC ) [C61] Start: 06-09-2022 End: 06-09-2022 Subsequent hospital visit by physician Ct [facility] Start: 05-21-2022 ambulatory Vazquez ovalle DO Work Phone: Urology Comment on above: Prostate Cancer for Sylvie Cutlip Start: 05-19-2022 Telephone encounter Vazquez coe DO Work Phone: Urology Comment on above: Results Start: 03-03-2022 End: 03-03-2022 Patient encounter procedure [facility], Specimen Start: 02-28-2022 Refill Vazquez ovalle DO Work Phone: Urology Comment on above: Refill Request Start: 12-24-2021 End: 12-24-2021 Patient encounter procedure James Cameron [employer]ANSUPERVISOR [employer] Work Phone: Orthopaedics Comment on above: 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 (Primary Dx) Start: 12-24-2021 End: 12-24-2021 Subsequent hospital visit by physician [facility] Shayla Mathews Work Phone: Radiology Comment on above: Pain [R52] Start: 08-15-2021 ambulatory NORMA DAVIES [facility] Procedures Date Procedure Procedure Detail Performing Clinician Start: 03-03-2025 Arthrocentesis aspir &/inj major jt/bursa w/o us Selwyn Leiva PA-C Work Phone: Start: 03-02-2025 End: 03-02-2025 Arthrocnt aspir&/inj small jt/bursaw/us rec rprt Natan Alcazar DO Work Phone: Start: 08-16-2024 End: 08-16-2024 Arthrocnt aspir&/inj small jt/bursaw/us rec rprt Natan Alcazar DO Work Phone: Start: 08-02-2024 End: 08-02-2024 Arthrocnt aspir&/inj small jt/bursaw/us rec rprt Natan Alcazar DO Work Phone: Start: 03-29-2024 Radex wrist complete minimum 3 views Patria Scott PA-C Work Phone: Start: 02-19-2024 Urnls dip stick/tabl et rgnt auto w/o microscopy Selwyn Michelle MD Work Phone: Start: 02-01-2024 End: 02-01-2024 Us compl joint r-t w/image documentation Alex Erazo MD Work Phone: Start: 01-29-2024 Urnls dip stick/tabl et rgnt auto w/o microscopy Selwyn Michelle MD Work Phone: Start: 01-12-2024 Mri pelvis w/o & w/c ontrast material Hussein Ordonez MD Work Phone: Start: 07-20-2023 Radex spine lumbosac ral 2/3 views Hussein Ordonez MD Work Phone: Start: 04-10-2023 Radex hip unilateral with pelvis 2-3 views Selwyn Leiva PA-C Work Phone: Start: 02-05-2023 Radex hand minimum 3 views Afsaneh Hansen PA-C Work Phone: Start: 02-05-2023 Arthrocentesis aspir &/inj small jt/bursa w/o us Afsaneh Hansen PA-C Work Phone: Start: 02-05-2023 Radex hand minimum 3 views Afsaneh Hansen PA-C Work Phone: Start: 01-30-2023 Arthrocentesis aspir &/inj major jt/bursa w/o us Selwyn Leiva PA-C Work Phone: Start: 12-02-2022 Dup-scan xtr veins unilateral/limited study Hussein Ordonez MD Work Phone: Start: 09-12-2022 Radex shoulder compl ete minimum 2 views Flynn TRAOREC Work Phone: Start: 06-09-2022 Bone &/joint imaging whole body Vazquez Page DO Work Phone: Start: 12-24-2021 Arthrocentesis aspir &/inj major jt/bursa w/o us James Barnes APRN.DEBBIE Work Phone: Start: 12-24-2021 Radiologic exam knee complete 4/more views James Barnes APRN.CNP Work Phone: Start: 04-29-2016 Adult depression scr eening assessment James Barnes APRN.DEBBIE Work Phone: Start: 03-22-2010 Lipid 1996 panel - S olivia or Plasma Hussein Ordonez MD Work Phone: Plan of Treatment Date Care Activity Detail Author Start: 12-24-2026 Diabetes Screening Diabetes Screening [facility] Start: 09-25-2026 Diabetes Screening Diabetes Screening [facility] Start: 03-09-2026 DIABETES SCREEN DIABETES SCREEN [facility] Start: 03-09-2026 Diabetes Screening Diabetes Screening [facility] Start: 12-14-2025 DIABETES SCREEN DIABETES SCREEN [facility] Start: 06-26-2025 End: 06-26-2025 Patient encounter procedure Radiation Oncology Comment on above: 6 month follow up prostate Start: 06-23-2025 End: 06-23-2025 ambulatory 06/23/2025 7:15 AM EDT Results Only [facility] [address] [place] [address] LAB [facility] Comment on above: LAB Start: 05-29-2025 Influenza vaccination Influenza Vaccine (Season Ended) [facility] Start: 03-03-2025 End: 03-03-2025 Patient encounter procedure Radiology Comment on above: L knee severe pain left kne e Start: 12-27-2024 End: 12-27-2024 Patient encounter procedure 12/27/2024 9:00 AM EDT Office Visit Rheumatology [address] [place] [address] [place] [address] [place] [address] annual Rheumatology Comment on above: annual Start: 12-23-2024 End: 12-23-2024 Patient encounter procedure 12/23/2024 9:00 AM EDT Office Visit Radiation Oncology [address] [place] [address] [place] [address] [place] [address] 6 month follow up prostate Radiation Oncology Comment on above: 6 month follow up prostate Start: 12-19-2024 End: 12-19-2024 ambulatory 12/19/2024 8:00 AM EDT Results Only [facility] [address] [place] [address] lab [facility] Comment on above: lab Start: 12-13-2024 BP Controlled (<130/80) BP Controlled (<130/80) [facility] Start: 10-04-2024 DIABETES SCREEN DIABETES SCREEN [facility] Start: 09-28-2024 Advance Directive Discussion Advance Directive Discussion [facility] Start: 09-27-2024 End: 09-27-2024 ambulatory 09/27/2024 6:00 PM EST Procedure [facility] [address] [place] [address] Hyperbaric Therapy [facility] Comment on above: Hyperbaric Therapy Start: 09-26-2024 End: 09-26-2024 ambulatory 09/26/2024 6:00 PM EST Procedure [facility] [address] [place] [address] Hyperbaric Therapy [facility] Comment on above: Hyperbaric Therapy Start: 09-23-2024 End: 09-23-2024 ambulatory 09/23/2024 6:00 PM EST Procedure [facility] [address] [place] [address] Hyperbaric Therapy [facility] Comment on above: Hyperbaric Therapy Start: 09-22-2024 End: 09-22-2024 ambulatory 09/22/2024 6:00 PM EST Procedure [facility] [address] [place] [address] Hyperbaric Therapy [facility] Comment on above: Hyperbaric Therapy Start: 09-20-2024 End: 09-20-2024 ambulatory 09/20/2024 6:00 PM EST Procedure [facility] [address] [place] [address] Hyperbaric Therapy [facility] Comment on above: Hyperbaric Therapy Start: 09-19-2024 End: 09-19-2024 ambulatory 09/19/2024 6:00 PM EST Procedure [facility] [address] [place] [address] Hyperbaric Therapy [facility] Comment on above: Hyperbaric Therapy Start: 09-16-2024 End: 09-16-2024 ambulatory 09/16/2024 6:00 PM EST Procedure [facility] [address] [place] [address] Hyperbaric Therapy [facility] Comment on above: Hyperbaric Therapy Start: 09-15-2024 End: 09-15-2024 ambulatory 09/15/2024 6:00 PM EST Procedure [facility] [address] [place] [address] Hyperbaric Therapy [facility] Comment on above: Hyperbaric Therapy Start: 09-14-2024 End: 09-14-2024 ambulatory 09/14/2024 6:00 PM EST Procedure [facility] [address] [place] [address] Hyperbaric Therapy [facility] Comment on above: Hyperbaric Therapy Start: 09-13-2024 End: 09-13-2024 ambulatory 09/13/2024 6:00 PM EST Procedure [facility] [address] [place] [address] Hyperbaric Therapy [facility] Comment on above: Hyperbaric Therapy Start: 09-12-2024 End: 09-12-2024 ambulatory 09/12/2024 6:00 PM EST Procedure [facility] [address] [place] [address] Hyperbaric Therapy [facility] Comment on above: Hyperbaric Therapy Start: 09-12-2024 End: 09-12-2024 Patient encounter procedure 09/12/2024 8:00 AM EST Office Visit Rheumatology [address] [place] [address] Francisco Davis, APPLIANCES SAMPLE MAKER.SUPERVISOR [employer]UMINUM BOAT ASSEMBLY [address] [place] [address] FOLLOW UP Rheumatology Comment on above: FOLLOW UP Start: 09-09-2024 End: 09-09-2024 ambulatory 09/09/2024 6:00 PM EST Procedure [facility] [address] [place] [address] Hyperbaric Therapy [facility] Comment on above: Hyperbaric Therapy Start: 09-08-2024 End: 09-08-2024 ambulatory 09/08/2024 6:00 PM EST Procedure [facility] [address] [place] [address] Hyperbaric Therapy [facility] Comment on above: Hyperbaric Therapy Start: 09-07-2024 End: 09-07-2024 ambulatory 09/07/2024 6:00 PM EST Procedure [facility] [address] [place] [address] Hyperbaric Therapy [facility] Comment on above: Hyperbaric Therapy Start: 09-06-2024 End: 09-06-2024 ambulatory 09/06/2024 6:00 PM EST Procedure [facility] [address] [place] [address] Hyperbaric Therapy [facility] Comment on above: Hyperbaric Therapy Start: 09-05-2024 End: 09-05-2024 ambulatory 09/05/2024 6:00 PM EST Procedure [facility] [address] [place] [address] Hyperbaric Therapy [facility] Comment on above: Hyperbaric Therapy Start: 09-02-2024 End: 09-02-2024 ambulatory 09/02/2024 6:00 PM EST Procedure [facility] [address] [place] [address] Hyperbaric Therapy [facility] Comment on above: Hyperbaric Therapy Start: 09-01-2024 End: 09-01-2024 ambulatory 09/01/2024 6:00 PM EST Procedure [facility] [address] [place] [address] Hyperbaric Therapy [facility] Comment on above: Hyperbaric Therapy Start: 08-31-2024 End: 08-31-2024 ambulatory 08/31/2024 6:00 PM EST Procedure [facility] [address] [place] [address] Hyperbaric Therapy [facility] Comment on above: Hyperbaric Therapy Start: 08-30-2024 End: 08-30-2024 ambulatory 08/30/2024 6:00 PM EST Procedure [facility] [address] [place] [address] Hyperbaric Therapy [facility] Comment on above: Hyperbaric Therapy Start: 08-29-2024 End: 08-29-2024 ambulatory 08/29/2024 6:00 PM EST Procedure [facility] [address] [place] [address] Hyperbaric Therapy [facility] Comment on above: Hyperbaric Therapy Start: 08-26-2024 End: 08-26-2024 ambulatory 08/26/2024 6:00 PM EST Procedure [facility] [address] [place] [address] Hyperbaric Therapy [facility] Comment on above: Hyperbaric Therapy Start: 08-24-2024 End: 08-24-2024 ambulatory 08/24/2024 6:00 PM EST Procedure [facility] [address] [place] [address] Hyperbaric Therapy [facility] Comment on above: Hyperbaric Therapy Start: 08-23-2024 End: 08-23-2024 ambulatory 08/23/2024 6:00 PM EST Procedure [facility] [address] [place] [address] Hyperbaric Therapy [facility] Comment on above: Hyperbaric Therapy Start: 08-22-2024 End: 08-22-2024 ambulatory 08/22/2024 6:00 PM EST Procedure [facility] [address] [place] [address] Hyperbaric Therapy [facility] Comment on above: Hyperbaric Therapy Start: 08-21-2024 End: 11-20-2024 Prostate specific Ag [Mass/volume] in Serum or Plasma PROSTATE-SPECIFIC ANTIGEN DIAGNOSTIC Lab Routine History of prostate cancer Expected: 08/21/2024 (Approximate), Expires: 11/20/2024 [facility] Work Phone: Comment on above: Expected: 08/21/2024 (Approximate), Expi res: 11/20/2024 Start: 08-19-2024 End: 08-19-2024 ambulatory 08/19/2024 6:00 PM EST Procedure [facility] [address] [place] [address] Hyperbaric Therapy [facility] Comment on above: Hyperbaric Therapy Start: 08-18-2024 End: 08-18-2024 ambulatory 08/18/2024 6:00 PM EST Procedure [facility] [address] [place] [address] Hyperbaric Therapy [facility] Comment on above: Hyperbaric Therapy Start: 08-17-2024 End: 08-17-2024 ambulatory 08/17/2024 6:00 PM EST Procedure [facility] [address] [place] [address] Hyperbaric Therapy [facility] Comment on above: Hyperbaric Therapy Start: 08-16-2024 End: 08-16-2024 ambulatory 08/16/2024 6:00 PM EST Procedure [facility] [address] [place] [address] Hyperbaric Therapy [facility] Comment on above: Hyperbaric Therapy Start: 08-16-2024 End: 08-16-2024 Patient encounter procedure 08/16/2024 4:00 PM EST Office Visit Orthopaedics [address] [place] [address] [id number] [place] [address] [place] [address] right thumb injection, ok per [facility] Orthopaedics Comment on above: right thumb injection, ok per MM Start: 08-15-2024 End: 08-15-2024 ambulatory 08/15/2024 6:00 PM EST Procedure [facility] [address] [place] [address] Hyperbaric Therapy [facility] Comment on above: Hyperbaric Therapy Start: 08-12-2024 End: 08-12-2024 ambulatory 08/12/2024 6:00 PM EST Procedure [facility] [address] [place] [address] Hyperbaric Therapy [facility] Comment on above: Hyperbaric Therapy Start: 08-12-2024 End: 08-12-2024 Patient encounter procedure 08/12/2024 10:50 AM EST Office Visit Urology [address] [place] [address] Selwyn Michelle MD [address] [place] [address] Six month follow up with PSA prior Urology Comment on above: Six month follow up with PSA prior Start: 08-11-2024 End: 08-11-2024 ambulatory 08/11/2024 6:00 PM EST Procedure [facility] [address] [place] [address] Hyperbaric Therapy [facility] Comment on above: Hyperbaric Therapy Start: 08-11-2024 End: 08-11-2024 Patient encounter procedure 08/11/2024 1:00 PM EST Office Visit Orthopaedics [address] [place] [address] Natan Alcazar [address] [place] [address] Arthritis of carpometacarpal (CMC) joint of left thumb [M18.12] Orthopaedics Comment on above: Arthritis of carpometacarpal (CMC) joint of left thumb [M18.12] Start: 08-10-2024 End: 08-10-2024 ambulatory 08/10/2024 6:00 PM EST Procedure [facility] [address] [place] [address] Hyperbaric Therapy [facility] Comment on above: Hyperbaric Therapy Start: 08-09-2024 End: 08-09-2024 ambulatory 08/09/2024 6:00 PM EST Procedure [facility] [address] [place] [address] Hyperbaric Therapy [facility] Comment on above: Hyperbaric Therapy Start: 08-08-2024 End: 08-08-2024 ambulatory 08/08/2024 6:00 PM EST Procedure [facility] [address] [place] [address] Hyperbaric Therapy [facility] Comment on above: Hyperbaric Therapy Start: 08-05-2024 End: 08-05-2024 ambulatory 08/05/2024 6:00 PM EST Procedure [facility] [address] [place] [address] Hyperbaric Therapy [facility] Comment on above: Hyperbaric Therapy Start: 08-04-2024 End: 08-04-2024 ambulatory 08/04/2024 6:00 PM EST Procedure [facility] [address] [place] [address] Hyperbaric Therapy [facility] Comment on above: Hyperbaric Therapy Start: 08-03-2024 End: 08-03-2024 ambulatory 08/03/2024 6:00 PM EST Procedure [facility] [address] [place] [address] Hyperbaric Therapy [facility] Comment on above: Hyperbaric Therapy Start: 08-02-2024 End: 08-02-2024 ambulatory 08/02/2024 6:00 PM EST Procedure [facility] [address] [place] [address] Hyperbaric Therapy [facility] Comment on above: Hyperbaric Therapy Start: 08-02-2024 End: 08-02-2024 Patient encounter procedure 08/02/2024 9:30 AM EST Office Visit Orthopaedics [address] [place] [address] [place] [address] [place] [address] Left Thumb CMC injection Orthopaedics Comment on above: Left Thumb CMC injection Start: 08-01-2024 End: 08-01-2024 ambulatory 08/01/2024 6:00 PM EST Procedure [facility] [address] [place] [address] Hyperbar[facility] Therapy [facility] Comment on above: Hyperbaric Therapy Start: 07-29-2024 End: 07-29-2024 ambulatory 07/29/2024 6:00 PM EDT Procedure [facility] [address] [place] [address] Hyperbar[facility] Therapy [facility] Comment on above: Hyperbaric Therapy Start: 07-28-2024 End: 07-28-2024 ambulatory 07/28/2024 6:00 PM EDT Procedure [facility] [address] [place] [address] Hyperbar[facility] Therapy [facility] Comment on above: Hyperbaric Therapy Start: 07-27-2024 End: 07-27-2024 ambulatory 07/27/2024 6:00 PM EDT Procedure [facility] [address] [place] [address] Hyperbar[facility] Therapy [facility] Comment on above: Hyperbaric Therapy Start: 07-26-2024 End: 07-26-2024 ambulatory 07/26/2024 6:00 PM EDT Procedure [facility] [address] [place] [address] Hyperbar[facility] Therapy [facility] Comment on above: Hyperbaric Therapy Start: 07-25-2024 End: 07-25-2024 ambulatory 07/25/2024 6:00 PM EDT Procedure [facility] [address] [place] [address] Hyperbar[facility] Therapy [facility] Comment on above: Hyperbaric Therapy Start: 07-22-2024 End: 07-22-2024 ambulatory 07/22/2024 6:00 PM EDT Procedure [facility] [address] [place] [address] Hyper[facility] Therapy [facility] Comment on above: Hyperbaric Therapy Start: 07-21-2024 End: 07-21-2024 ambulatory 07/21/2024 6:00 PM EDT Procedure [facility] [address] [place] [address] Hyperbaric Therapy [facility] Comment on above: Hyperbaric Therapy Start: 07-20-2024 End: 07-20-2024 ambulatory 07/20/2024 6:00 PM EDT Procedure [facility] [address] [place] [address] Hyperbaric Therapy [facility] Comment on above: Hyperbaric Therapy Start: 07-19-2024 End: 07-19-2024 ambulatory 07/19/2024 6:00 PM EDT Procedure [facility] [address] [place] [address] Hyperbaric Therapy [facility] Comment on above: Hyperbaric Therapy Start: 07-18-2024 End: 07-18-2024 ambulatory 07/18/2024 6:00 PM EDT Procedure [facility] [address] [place] [address] Hyperbaric Therapy [facility] Comment on above: Hyperbaric Therapy Start: 07-15-2024 End: 07-15-2024 ambulatory 07/15/2024 6:00 PM EDT Procedure [facility] [address] [place] [address] Hyperbaric Therapy [facility] Comment on above: Hyperbaric Therapy Start: 07-14-2024 End: 07-14-2024 ambulatory 07/14/2024 6:00 PM EDT Procedure [facility] [address] [place] [address] Hyperbaric Therapy [facility] Comment on above: Hyperbaric Therapy Start: 07-05-2024 End: 07-05-2024 Patient encounter procedure 07/05/2024 10:45 AM EDT Office Visit Orthopaedics [address] [address] Lee Wayne MD [address] [place] [address] Post op checkup and cortisone injection left wrist/hand Orthopaedics Comment on above: Post op checkup and cortisone injection left wrist/hand Start: 06-27-2024 End: 06-27-2024 Patient encounter procedure 06/27/2024 8:00 AM EDT Office Visit Rheumatology [address] [place] [address] Francisco Davis APRN.SUPERVISOR [employer] [address] [place] [address] FOLLOW UP Rheumatology Comment on above: FOLLOW UP Start: 06-24-2024 End: 06-24-2024 Patient encounter procedure 06/24/2024 11:00 AM EDT Office Visit Radiation Oncology [address] [place] [address] [place] [address] [place] [address] 6 month follow up prostate Radiation Oncology Comment on above: 6 month follow up prostate Start: 06-17-2024 End: 06-17-2024 Patient encounter procedure 06/17/2024 9:00 AM EDT Office Visit Radiation Oncology [address] [place] [address] [place] [address] [place] [address] 6 month follow up prostate Radiation Oncology Comment on above: 6 month follow up prostate Start: 05-29-2024 Covid-19 Vaccine ( season) Covid-19 Vaccine ( season) [facility] Start: 05-29-2024 Covid-19 Vaccine ( season) Covid-19 Vaccine ( season) [facility] Start: 05-29-2024 Influenza vaccination [facility] Start: 05-24-2024 End: 05-24-2024 Patient encounter procedure 05/24/2024 3:45 PM EDT Office Visit Orthopaedics [address] [address] Lee Wayne MD [address] [place] [address] post op left CTR Orthopaedics Comment on above: post op left CTR Start: 04-26-2024 End: 04-26-2024 Patient encounter procedure 04/26/2024 11:45 AM EDT Office Visit Orthopaedics [address] [address] Afsaneh Hansen PA-C [address] [place] [address] post op left CTR Orthopaedics Comment on above: post op left CTR Start: 04-15-2024 End: 04-15-2024 Admission to same day surgery center 04/15/2024 12:08 PM EDT - 04/15/2024 1:01 PM EDT Surgery [facility] [address] [place] [address] Lee Wayne MD [address] [place] [address] DECOMPRESSION NERVE MEDIAN CARPAL TUNNEL [facility] Comment on above: DECOMPRESSION NERVE MEDIAN CARPAL TUNNEL Start: 04-15-2024 End: 04-15-2024 Neuroplasty &/transpos median nrv carpal tunne DECOMPRESSION NERVE MEDIAN CARPAL TUNNEL Carpal tunnel syndrome on left 04/15/2024 12:08 PM EDT ME OR Start: 04-15-2024 Subsequent hospital visit by physician 04/15/2024 12:08 PM EDT Hospital Encounter [facility] [address] [place] [address] Lee Wayne MD [address] [place] [address] Carpal tunnel syndrome on left [G56.02] [facility] Comment on above: Carpal tunnel syndrome on left [G56.02] Start: 04-01-2024 End: 04-01-2024 Patient encounter procedure Radiology Comment on above: XR WRIST GENERAL 3V PA/LAT/OBL LEFT left wrist/hand pain , xrays scheduled Start: 03-12-2024 BP CONTROLLED (<130/80) BP CONTROLLED (<130/80) [facility] Start: 02-19-2024 End: 02-19-2024 Patient encounter procedure Urology Comment on above: Cystoscopy Cystoscopy - LM for patient to arrive at 1430 & instructions given Start: 02-18-2024 End: 02-18-2024 Patient encounter procedure 02/18/2024 9:00 AM EDT Office Visit Rheumatology [address] [place] [address] Francisco Davis APRN.SUPER[employer]OR [employer] [address] [place] [address] Pain in joint, multiple sites to discuss other meds besides PLQ Rheumatology Comment on above: Pain in joint, multiple sites to discuss other meds besides PLQ Start: 02-01-2024 End: 02-01-2024 Patient encounter procedure 02/01/2024 9:15 AM EDT Appointment Radiology [address] [place], [place] [id number] US HAND/WRIST SYNOVIAL SCREEN RT+LT. Radiology Comment on above: US HAND/WRIST SYNOVIAL SCREEN RT+LT. Start: 01-12-2024 End: 04-12-2024 Bacteria identified in Urine by Culture [facility] Work Phone: Comment on above: Expected: 01/12/2024, Expires: Start: 12-14-2023 End: 03-14-2024 C reactive protein [Mass/volume] in Serum or Plasma [facility] Work Phone: Comment on above: Expected: 12/14/2023, Expires: Start: 12-14-2023 End: 03-14-2024 Cyclic citrullinated peptide IgG Ab [Units/volume] in Serum or Plasma [facility] Work Phone: Comment on above: Expected: 12/14/2023, Expires: Start: 12-14-2023 End: 03-14-2024 Rheumatoid factor [Units/volume] in Serum or Plasma [facility] Work Phone: Comment on above: Expected: 12/14/2023, Expires: 4 Start: 09-28-2023 Advance Directive Discussion Advance Directive Discussion [facility] Start: 09-28-2023 Behavioral Health Screening Behavioral Health Screening [facility] Start: 09-28-2023 Depression Assessment Depression Assessment [facility] Start: 07-29-2023 BP CONTROLLED (<130/80) BP CONTROLLED (<130/80) [facility] in Start: 05-29-2023 Covid-19 Vaccine () Covid-19 Vaccine () [facility] Start: 05-29-2023 Influenza vaccination [facility] Start: 03-11-2023 End: 05-11-2023 CBC W Auto Differential panel - Blood CBC + DIFF Lab Routine Prostate cancer (HCC) Expected: 03/11/2023, Expires: 05/11/2023 [facility] Work Phone: Comment on above: Expected: 03/11/2023, Expires: 3 Start: 03-11-2023 End: 05-11-2023 Comprehensive metabolic 2000 panel - Serum or Plasma COMP METABOLIC PANEL Lab Routine Prostate cancer (HCC) Expected: 03/11/2023, Expires: 05/11/2023 [facility] Work Phone: Comment on above: Expected: 03/11/2023, Expires: 3 Start: 11-14-2022 End: 01-14-2023 Testosterone [Mass/volume] in Serum or Plasma TESTOSTERONE TOTAL Lab Routine Prostate cancer (HCC) Expected: 11/14/2022, Expires: 01/14/2023 [facility] Work Phone: Comment on above: Expected: 11/14/2022, Expires: 3 Start: 09-28-2022 ADVANCE DIRECTIVE DISCUSSION ADVANCE DIRECTIVE DISCUSSION [facility] Start: 09-28-2022 DEPRESSION ASSESSMENT DEPRESSION ASSESSMENT [facility] Start: 05-29-2022 Influenza vaccination [facility] Start: 05-19-2022 End: 07-19-2022 CREATININE BLD CREATININE BLD Lab Routine Prostate cancer (HCC) Expected: 05/19/2022, Expires: 07/19/2022 [facility] Work Phone: Comment on above: Expected: 05/19/2022, Expires: 2 Start: 09-28-2021 ADVANCE DIRECTIVE DISCUSSION ADVANCE DIRECTIVE DISCUSSION [facility] Start: 09-28-2021 DEPRESSION ASSESSMENT DEPRESSION ASSESSMENT [facility] Start: 05-29-2021 Influenza vaccination INFLUENZA (#1) [facility] Start: 04-29-2017 Adult depression screening assessment DEPRESSION SCREENING [facility] Start: 2017 Pneumococcal Vaccine: 65+ (2 - PCV) Pneumococcal Vaccine: 65+ (2 - PCV) [facility] Start: 2017 Pneumococcal Vaccine: 65+ (2 of 2 - PCV) Pneumococcal Vaccine: 65+ (2 of 2 - PCV) [facility] Start: 2017 PNEUMOCOCCAL: 65+ (1 - PCV) PNEUMOCOCCAL: 65+ (1 - PCV) [facility] Start: 2017 PNEUMOCOCCAL: 65+ (2 - PCV) PNEUMOCOCCAL: 65+ (2 - PCV) [facility] Start: 2017 PNEUMOVAX AGE 65 AND OVER WITH 5YR LOOKBACK (#1) PNEUMOVAX AGE 65 AND OVER WITH 5YR LOOKBACK (#1) [facility] Start: 03-22-2015 Lipid 1996 panel - Serum or Plasma Lipid Screening [facility] Start: 03-22-2015 Lipid panel Lipid Screening [facility] Start: 03-22-2015 LIPID SCREEN LIPID SCREEN [facility] Start: 2012 RSV Vaccine (1 - 1-dose 60+ series) RSV Vaccine (1 - 1-dose 60+ series) [facility] Start: 2012 RSV Vaccine (1 - Risk 60-74 years 1-dose series) RSV Vaccine (1 - Risk 60-74 years 1-dose series) [facility] Start: 11-17-2007 Pneumococcal Vaccine: 50+ (2 of 2 - PCV) Pneumococcal Vaccine: 50+ (2 of 2 - PCV) [facility] Start: 11-17-2007 PNEUMOCOCCAL: 65+ (2 - PCV) PNEUMOCOCCAL: 65+ (2 - PCV) [facility] Start: 10-04-2006 Urine microalbumin profile [facility] Start: 2002 SHINGRIX VACCINE (1 of 2) SHINGRIX VACCINE (1 of 2) [facility] Start: 1997 COLOGUARD (FIT-DNA) COLOGUARD (FIT-DNA) [facility] Start: 1997 Colonoscopy COLONOSCOPY [facility] Start: 1997 COLORECTAL CANCER SCREENING COLORECTAL CANCER SCREENING [facility] Start: [address] COLONOGRAPHY [facility] Start: 1997 FECAL OCCULT BLOOD FECAL OCCULT BLOOD [facility] Start: 1997 Screening for malignant neoplasm of colon [facility] Start: 1997 SIGMOIDOSCOPY SIGMOIDOSCOPY [facility] Start: 1970 ANNUAL PCP TEAM CHRONIC DISEASE VISIT ANNUAL PCP TEAM CHRONIC DISEASE VISIT [facility] Start: 1970 Anxiety Screening Anxiety Screening [facility] Start: 1970 BP CONTROLLED (<130/80) BP CONTROLLED (<130/80) [facility] in Start: 1970 Depression Screening Depression Screening [facility] Start: 1970 HEPATITIS C SCREENING HEPATITIS C SCREENING [facility] Start: 1970 Hepatitis C screening Hepatitis C Screening [facility] Start: 1957 COVID-19 VACCINE (#1) COVID-19 VACCINE (#1) [facility] Start: 1957 COVID-19 VACCINE (1) COVID-19 VACCINE (1) [facility] Start: 1952 COVID-19 VACCINE (#1) COVID-19 VACCINE (#1) [facility] Start: 1952 ABDOMINAL AORTIC ANEURYSM SCREENING ABDOMINAL AORTIC ANEURYSM SCREENING [facility] Start: 1952 Abdominal aortic aneurysm screening Abdominal Aortic Aneurysm Screening [facility] End: 06-18-2023 Bone &/joint imaging whole body NM BONE WHOLE BODY Radiology Routine Prostate cancer (HCC) 1 Occurrences starting 05/19/2022 until 06/18/2023 [facility] Work Phone: Comment on above: 1 Occurrences starting 05/19/2022 until 06/18/2023 Clostridioides diffi cile toxin genes [Presence] in Stool by JENNYFER with probe detection C. DIFFICILE PCR Lab Routine Diarrhea, unspecified type Ordered: 03/12/2023 [facility] Work Phone: Comment on above: Ordered: 03/12/2023 End: 06-18-2023 Ct pelvis w/contrast material CT PELVIS W IVCON Radiology Routine Prostate cancer (HCC) 1 Occurrences starting 05/19/2022 until 06/18/2023 [facility] Work Phone: Comment on above: 1 Occurrences starting 05/19/2022 until 06/18/2023 Hemoglobin.gastroint michael nal.lower [Presence] in Stool by Immunoassay FECAL OCCULT BLOOD TEST Lab Routine Diarrhea, unspecified type Ordered: 03/12/2023 [facility] Work Phone: Comment on above: Ordered: 03/12/2023 End: 01-15-2025 MR Pelvis WO and W contrast IV MRI PELVIS WO/W IVCON Radiology Routine Bladder neck obstruction 1 Occurrences starting 12/17/2023 until 01/15/2025 [facility] Work Phone: Comment on above: 1 Occurrences starting 12/17/2023 until 01/15/2025 End: 10-12-2023 Mri any jt upper extremity w/o contrast matrl MRI SHOULDER WO IVCON RT Radiology Routine Dysfunction of right rotator cuff 1 Occurrences starting 09/12/2022 until 10/12/2023 [facility] Work Phone: Comment on above: 1 Occurrences starting 09/12/2022 until 10/12/2023 End: 07-19-2023 Mri pelvis w/o & w/contrast material MRI PROSTATE WO/W IVCON Radiology Routine Prostate cancer (HCC) 1 Occurrences starting 06/19/2022 until 07/19/2023 [facility] Work Phone: Comment on above: 1 Occurrences starting 06/19/2022 until 07/19/2023 End: 11-14-2023 Prostate specific Ag [Mass/volume] in Serum or Plasma PSA/PROSTSPECAG DIAG Lab Routine Prostate cancer (HCC) Every 6 months for 20 Occurrences starting 11/14/2022 until 11/14/2023 [facility] Work Phone: Comment on above: Every 6 months for 20 Occurrences starti ng 11/14/2022 until 11/14/2023 End: 01-13-2024 Prostate specific Ag [Mass/volume] in Serum or Plasma PSA/PROSTSPECAG DIAG Lab Routine Prostate cancer (HCC) Every 6 months for 20 Occurrences starting 01/12/2023 until 01/13/2024 [facility] Work Phone: Comment on above: Every 6 months for 20 Occurrences starti ng 01/12/2023 until 01/13/2024 End: 06-16-2024 Prostate specific Ag [Mass/volume] in Serum or Plasma PSA/PROSTSPECAG DIAG Lab Routine Encounter for follow-up surveillance of prostate cancer Every 6 months for 20 Occurrences starting 06/16/2023 until 06/16/2024 [facility] Work Phone: Comment on above: Every 6 months for 20 Occurrences starti ng 06/16/2023 until 06/16/2024 End: 12-16-2024 Prostate specific Ag [Mass/volume] in Serum or Plasma PSA/PROSTSPECAG DIAG Lab Routine Prostate cancer (HCC) Bladder neck obstruction Every 6 months for 20 Occurrences starting 12/17/2023 until 12/16/2024 [facility] Work Phone: Comment on above: Every 6 months for 20 Occurrences starti ng 12/17/2023 until 12/16/2024 End: 12-19-2025 Prostate specific Ag [Mass/volume] in Serum or Plasma PROSTATE-SPECIFIC ANTIGEN DIAGNOSTIC Lab Routine Encounter for follow-up surveillance of prostate cancer Every 6 months for 20 Occurrences starting 12/19/2024 until 12/19/2025 [facility] Work Phone: Comment on above: Every 6 months for 20 Occurrences starti ng 12/19/2024 until 12/19/2025 Prostate specific Ag [Mass/volume] in Serum or Plasma PROSTATE-SPECIFIC ANTIGEN DIAGNOSTIC Lab Routine Encounter for follow-up surveillance of prostate cancer 12/19/2024 9:23 AM EDT [facility] End: 12-23-2025 Prostate specific Ag [Mass/volume] in Serum or Plasma PROSTATE-SPECIFIC ANTIGEN DIAGNOSTIC Lab Routine Encounter for follow-up surveillance of prostate cancer Every 6 months for 20 Occurrences starting 12/23/2024 until 12/23/2025 [facility] Work Phone: Comment on above: Every 6 months for 20 Occurrences starti ng 12/23/2024 until 12/23/2025 End: 01-13-2025 US Upper extremity - left US HAND/WRIST SYNOVIAL SCREEN LEFT Radiology Routine Pain in joint, multiple sites 1 Occurrences starting 12/14/2023 until 01/13/2025 [facility] Work Phone: Comment on above: 1 Occurrences starting 12/14/2023 until 01/13/2025 End: 01-13-2025 US Upper extremity - right US HAND/WRIST SYNOVIAL SCREEN RIGHT Radiology Routine Pain in joint, multiple sites 1 Occurrences starting 12/14/2023 until 01/13/2025 [facility] Work Phone: Comment on above: 1 Occurrences starting 12/14/2023 until 01/13/2025 End: 09-01-2025 XR Hand - right PA and Lateral and Oblique XR HAND GENERAL 3V PA/LAT/OBL RIGHT Radiology Routine Right hand pain 1 Occurrences starting 08/02/2024 until 09/01/2025 [facility] Work Phone: Comment on above: 1 Occurrences starting 08/02/2024 until 09/01/2025 XR Hand - right PA a nd Lateral and Oblique XR HAND GENERAL 3V PA/LAT/OBL RIGHT Radiology Routine Right hand pain 08/02/2024 10:10 AM EST [facility] End: 02-22-2024 XR HAND GENERAL 3V PA/LAT/OBL LEFT XR HAND GENERAL 3V PA/LAT/OBL LEFT Radiology Routine Left hand pain 1 Occurrences starting 01/23/2023 until 02/22/2024 [facility] Work Phone: Comment on above: 1 Occurrences starting 01/23/2023 until 02/22/2024 XR Knee - left 4 Views XR KNEE G ENERAL 4V AP BOTH/PA BOTH/LAT/MERC LEFT Radiology Routine Left knee pain, unspecified chronicity 03/03/2025 8:09 AM EDT [facility] Work Phone: End: 04-19-2025 XR Wrist - left PA and Lateral and Oblique XR WRIST GENERAL 3V PA/LAT/OBL LEFT Radiology Routine Pain 1 Occurrences starting 03/20/2024 until 04/19/2025 [facility] Work Phone: Comment on above: 1 Occurrences starting 03/20/2024 until 04/19/2025 [facility] [place] [facility] Immunizations Immunization Date Immunization Notes Care Provider Shira ring 06-30-2018 influenza, high dose seasonal, preservative-free James Barnes APRN.[employer] Work Phone: [facility] 06-30-2018 influenza virus vacc ine, unspecified formulation Hussein Ordonez MD Work Phone: [facility] 06-14-2009 influenza virus vacc ine, unspecified formulation James Barnes [employer]IANCES SAMPLE MAKER.SUPER[employer] Work Phone: [facility] 11-17-2006 influenza virus vacc ine, unspecified formulation James Barnes [employer]IANCES S[employer] MAKER.[employer] Work Phone: [facility] 11-17-2006 pneumococcal polysaccharide vaccine, 23 valent James Barnes [employer] S[employer] MAKER.[employer] Work Phone: [facility] 10-03-2006 tetanus and diphther ia toxoids, not adsorbed, for adult use James Barnes APRN.[employer] Work Phone: [facility] Payers Date Payer Category Payer Medicare (Managed Care) KEYUR SOFIA [id number] 2024 Self-pay [id number] 2012 Medicare HUMANA MEDICARE HU[employer]NA MEDICARE PPO [id number] 2012-Present [phone] [place] [address] PPO [id number] 2012 Medicare [id number] 2012 Private Health Insurance [id number] Medicare [id number] Unknown [id number] Social History Date Type Detail Facility Start: 05-08-2022 End: 08-02-2024 Tobacco smoking status NHIS Ex-smoker [facility] Work Phone: History of tobacco use Cigarette Smoker [facility] Start: 11-21-2021 End: 03-03-2025 Alcohol intake Current drinker of alcohol (finding) [facility] Start: 11-14-2015 End: 05-08-2022 Tobacco Comment quit over 35 yrs ago [facility] Start: 1950 Sex Assigned At Male [facility] Start: 12-14-2021 End: 08-11-2022 Exposure to SARS-CoV-2 (event) Not sure [facility] Start: 02-26-2021 Tobacco smoking stat us MIIS Unknown if ever smoked [facility] History of tobacco use Current smoker [facility] Start: 05-08-2022 End: 01-30-2023 Cigarettes smoked current (pack per day) - Reported 1 [facility] Start: 05-08-2022 End: 08-02-2024 Tobacco use and exposure Smokeless tobacco non-user [facility] Start: 01-30-2023 End: 04-10-2023 Tobacco use panel [facility] Adult Depression Screening Assessment 2 [facility] Start: 11-25-2021 Gender identity Identifies as male gender (finding) [facility] Start: 11-25-2021 Sexual orientation Heterosexual (nate vincent) [facility] Medical Equipment Procedure Code Equipment Code Equipment Origin al Text Equipment Identifier Dates Cement Simplex P Bone Radiopaque Full Dose Sterile - [id number] Start: 06-30-2018 Comment on above: Description: Lecanto Simplex P Bone Cement Full Dose Component Triathlon 40mm X3 11mm Patellar Asymmetric Knee - [id number] Start: 06-30-2018 Comment on above: Description: Kailash Triathlon X3 Asymmetric Patella, A40, 11mm Insert Triathlon 7 X3 9mm Tibial Cruciate Retaining Knee - [id number] Start: 06-30-2018 Comment on above: Description: Lecanto Triathlon X3 Tibial Bearing Insert-CR, 7, 9mm Component Triathlon 7 Femoral Cruciate Retain Cemented Knee Right - [id number] Start: 06-30-2018 Comment on above: Description: Kailash Triathlon Cruciate Retaining Femoral, #7, RT, CR Baseplate Triathlon 7 Tibial Primary Cement Knee - [id number] Start: 06-30-2018 Comment on above: Description: Kailash Triathlon Primary Tibial Baseplate, #7 Functional Status Date Assessment Result Facility 07-01-2018 Are you deaf, or do you have serious difficulty hearing No 07/01/2018 3:22 PM MONETT Donya Davis RN No [facility] 07-01-2018 Are you blind, or do you have serious difficulty seeing, even when wearing glasses No 07/01/2018 3:22 PM EDDonya Cruz, DYLAN No [facility] 07-01-2018 Do you have serious difficulty walking or climbing stairs No 07/01/2018 3:22 PM EDDonya Cruz, DYLAN No [facility] 07-01-2018 Do you have difficul ty dressing or bathing No 07/01/2018 3:22 PM EDDonya Cruz, RN No [facility] 07-01-2018 Because of a physica l, mental, or emotional condition, do you have difficulty doing errands alone such as visiting a physician's office or shopping No 07/01/2018 3:22 PM Donya Oglesby, RN No [facility] Mental Status Date Assessment Result Facility 07-01-2018 Because of a physica l, mental, or emotional condition, do you have serious difficulty concentrating, remembering, or making decisions No 07/01/2018 3:22 PM Donya Oglesby, DYLAN No [facility] Clinical Notes 06-08-2018 to 03-03-2025 Selwyn Leiva PA-C - 03/03/2025 8:34 AM EDAmisha Swain Tech - 03/03/2025 8:00 AM EDTPatient InstructionsNatan Alcazar DO - 03/02/2025 8:20 AM EDTPatient Instructions Note Date & Type Note Facility 03-03-2025 Note HNO ID: [id number] Author: SELWYN LEIVA PA-C Service: ? Author Type: Physician Cost Estimator Type: Progress Notes Filed: 03/03/2025 08:40 Note Text: DEPARTMENT OF ORTHOPAEDICS CC: Follow-up visit after knee replacement HPI: Mr. Chiu is here today for his 7 year clinical follow up status post right total knee replacement. Since his last visit Mr. Chiu conveys the interval has been complicated by left knee pain. We injected the left knee 2 years ago and sylvie reports good pain relief. He is now having increased pain with activity, no sleep disruption.. Pleased with outcome: Yes Pain? 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 History of anal fissures Obesity APRIL (obstructive sleep apnea) 02/2007 Pain in joint, multiple sites Prostate cancer (HCC) Unspecified essential hypertension Unspecified glaucoma(365.9) PAST SURGICAL HISTORY Procedure Laterality Date ANKLE SURGERY HX Left left ankle fracture and piece of metal removed ARTHRP KNE CONDYLEANDPLATU MEDIALANDLAT COMPARTMENTS Right 06/30/2018 Knee replacement, total BRONCHOSCOPY 09/17/2006 COLONOSCOPY 04/2016 MEDIASTINOSCOPY 10/02/2006 histoplasmosis NEUROPLASTY AND/TRANSPOS MEDIAN NRV CARPAL TUNNE Right 11/28/2015 Carpal tunnel decomp PAST SURGICAL HISTORY OF lasik bilat.; 5 ops R eye and now blind R REMOVAL OF ANAL FISSURE ROTATOR CUFF REPAIR Right ROTATOR CUFF REPAIR Left TONSILLECTOMY AND ADENOIDECTOMY VASECTOMY UNI/BI SPX W/POSTOP SEMEN EXAMS Current Outpatient Medications Medication Sig Dispense Refill tamsulosin (FLOMAX) 0.4 mg By mouth, take 1-2 tablets daily (to aid in urination flow) 180 capsule 3 omega-3 fatty acids/fish oil (OMEGA 3 FISH OIL ORAL) Take by mouth once daily. celecoxib (CELEBREX) 200 mg capsule Take 200 mg by mouth once daily. hydrOXYchloroQUINE (PLAQUENIL) 200 mg tablet Take 1 tablet by mouth once daily. 90 tablet 3 ipratropium-albuterol (DUONEB) 0.5 mg-3 mg(2.5 mg base)/3 mL nebu Inhale 3 mL as instructed four times daily. 25 Each 2 furosemide (LASIX) 20 mg tablet Take 1 tablet by mouth once daily. 5 tablet 0 iv contrast (will be provided with radiology test) MRI Prostate Inject, intravenously, once for 1 dose. No IV access, insert saline lock prior to the beginning of sedation, infusion, injection of imaging exam. Discontinue saline lock post exam. If Pt. has a central line or IVAD, may access for administration according to line specific nursing protocol. Once exam is complete flush line and de-access according to line specific nursing protocol in the MR contrast administration guidelines link. 1 Each 0 acetaminophen (TYLENOL) 325 mg tablet Take 650 mg by mouth as needed. BIPAP ASV Adaptive Servo-Ventilation (ASV) with end-expiratory pressure (EEP) of 9 cmH2O and variable pressure support of 3-10 cmH2O. mask (pt pref), chin strap, heated tubing AND humidity, filters. Lifetime supplies. APIRL: G47.33. 1 Device 0 ALBUTEROL INHALATION Inhale 1 Inhalation as instructed as needed. hot humid weather lisinopril-hydrochlorothiazide (PRINZIDE,ZESTORETIC) 20-12.5 mg per tablet Take 1 tablet by mouth once daily. modafinil(PROVIGIL 200 MG TAB) Take one(1) tablet daily in the morning. 90 1 pantoprazole (PROTONIX) 40 mg ORAL TbEC Take one(1) tablet daily. 0 BIPAP Please supply patient with Full face mask, FusionOps VIP [id number]. 1 0 gabapentin (NEURONTIN) 100 mg capsule Take 1 capsule by mouth three times a day for 10 days. (Patient not taking: Reported on 03/03/2025) 30 capsule 0 No current facility-administered medications for this visit. ALLERGIES No Known Allergies FAMILY HISTORY Problem Relation Age of Onset Colon Cancer Father mgf other (hyperchol) Father other (cva) Father pgf, mgm other (heart dis) Father pgm Prostate Cancer Maternal Grandfather Social History Tobacco Use Smoking status: Former Current packs/day: 1.00 Average packs/day: 1 pack/day for 20.0 years (20.0 ttl pk-yrs) Types: Cigarettes Smokeless tobacco: Never Tobacco comments: quit over 35 yrs ago Vaping Use Vaping status: Never Used Substance Use Topics Alcohol use: Yes Alcohol/week: 2.0 - 3.0 standard drinks of alcohol Types: 2 - 3 Cans of Beer (12oz) per week Drug use: No EXAMINATION: GENERAL:no apparent distress RESP:Unlabored with no shortness of breath CV: Abnormals as specified: venous stasis changes bilateral LE Mr. Chiu has no difficulty arising out of a chair and has no difficulty ambulating i (more content not included)... [facility] 03-03-2025 History of Presen t illness Narrative Associated Order(s): Large Joint Arthro/Inj: L knee joint Post-Procedure Diagnose(s): Primary osteoarthritis of left knee Images from the original note were not included. DEPARTMENT OF ORTHOPAEDICS CC: Follow-up visit after knee replacement HPI: Mr. Chiu is here today for his 7 year clinical follow up status post right total knee replacement. Since his last visit Mr. Chiu conveys the interval has been complicated by left knee pain. We injected the left knee 2 years ago and sylvie reports good pain relief. He is now having increased pain with activity, no sleep disruption.. Pleased with outcome: Yes Pain? 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 Treated with Itraconazole & Prednisone History of anal fissures Obesity APRIL (obstructive sleep apnea) 02/2007 Pain in joint, multiple sites Prostate cancer (HCC) Unspecified essential hypertension Unspecified glaucoma(365.9) PAST SURGICAL HISTORY Procedure Laterality Date ANKLE SURGERY HX Left left ankle fracture and piece of metal removed ARTHRP KNE CONDYLE&PLATU MEDIAL&LAT COMPARTMENTS Right 06/30/2018 Knee replacement, total BRONCHOSCOPY 09/17/2006 COLONOSCOPY 04/2016 MEDIASTINOSCOPY 10/02/2006 histoplasmosis NEUROPLASTY &/TRANSPOS MEDIAN NRV CARPAL TUNNE Right 11/28/2015 Carpal tunnel decomp PAST SURGICAL HISTORY OF lasik bilat.; 5 ops R eye and now blind R REMOVAL OF ANAL FISSURE ROTATOR CUFF REPAIR Right ROTATOR CUFF REPAIR Left TONSILLECTOMY & ADENOIDECTOMY <AGE 14 VASECTOMY UNI/BI SPX W/POSTOP SEMEN EXAMS Current Outpatient Medications Medication Sig Dispense Refill tamsulosin (FLOMAX) 0.4 mg By mouth, take 1-2 tablets daily (to aid in urination flow) 180 capsule 3 omega-3 fatty acids/fish oil (OMEGA 3 FISH OIL ORAL) Take by mouth once daily. celecoxib (CELEBREX) 200 mg capsule Take 200 mg by mouth once daily. hydrOXYchloroQUINE (PLAQUENIL) 200 mg tablet Take 1 tablet by mouth once daily. 90 tablet 3 ipratropium-albuterol (DUONEB) 0.5 mg-3 mg(2.5 mg base)/3 mL nebu Inhale 3 mL as instructed four times daily. 25 Each 2 furosemide (LASIX) 20 mg tablet Take 1 tablet by mouth once daily. 5 tablet 0 iv contrast (will be provided with radiology test) MRI Prostate Inject, intravenously, once for 1 dose. No IV access, insert saline lock prior to the beginning of sedation, infusion, injection of imaging exam. Discontinue saline lock post exam. If Pt. has a central line or IVAD, may access for administration according to line specific nursing protocol. Once exam is complete flush line and de-access according to line specific nursing protocol in the MR contrast administration guidelines link. 1 Each 0 acetaminophen (TYLENOL) 325 mg tablet Take 650 mg by mouth as needed. BIPAP ASV Adaptive Servo-Ventilation (ASV) with end-expiratory pressure (EEP) of 9 cmH2O and variable pressure support of 3-10 cmH2O. mask (pt pref), chin strap, heated tubing & humidity, filters. Lifetime supplies. APRIL: G47.33. 1 Device 0 ALBUTEROL INHALATION Inhale 1 Inhalation as instructed as needed. hot humid weather lisinopril-hydrochlorothiazide (PRINZIDE,ZESTORETIC) 20-12.5 mg per tablet Take 1 tablet by mouth once daily. modafinil(PROVIGIL 200 MG TAB) Take one(1) tablet daily in the morning. 90 1 pantoprazole (PROTONIX) 40 mg ORAL TbEC Take one(1) tablet daily. 0 BIPAP Please supply patient with Full face mask, Santana Keller VIP [id number]. 1 0 gabapentin (NEURONTIN) 100 mg capsule Take 1 capsule by mouth three times a day for 10 days. (Patient not taking: Reported on 03/03/2025) 30 capsule 0 No current facility-administered medications for this visit. ALLERGIES No Known Allergies FAMILY HISTORY Problem Relation Age of Onset Colon Cancer Father mgf other (hyperchol) Father other (cva) Father pgf, mgm other (heart dis) Father pgm Prostate Cancer Maternal Grandfather Social History Tobacco Use Smoking status: Former Current packs/day: 1.00 Average packs/day: 1 pack/day for 20.0 years (20.0 ttl pk-yrs) Types: Cigarettes Smokeless tobacco: Never Tobacco comments: quit over 35 yrs ago Vaping Use Vaping status: Never Used Substance Use Topics Alcohol use: Yes Alcohol/week: 2.0 - 3.0 standard drinks of alcohol Types: 2 - 3 Cans of Beer (12oz) per week Drug use: No EXAMINATION: GENERAL:no apparent distress RESP:Unlabored with no shortness of breath CV: Abnormals as specified: venous stasis changes bilateral LE Mr. Chiu has no difficulty arising out of a chair and has no difficulty ambulating in the exam room. his gait was normal. LOWER EXTREMITIES: On the exam table seated and supine, hip range of motion bilaterally was symmetric, unrestricted and non-painful. No trochanteric pain to palpation. Straight leg raise and femoral nerve stretch tests were negative for acute radicular symptoms to suggest spine problems. Examination of the right knee reveals Single previous incisions and has no erythema, warmth or tenderness. Range of motion is 0 degrees in extension and 120 degrees of flexion actively. Mild varus-valgus instability with patella tracking midline. No patellofemoral crepitus. Examination of the left knee reveals No previous incisions and has no erythema, warmth. Has tenderness, medial joint line and patellofemoral joint. Range of motion is 5 degrees in extension and 120 degrees of flexion actively. Mild varus-valgus instability with patella midline in extension and sublexing laterally with flexion. Significant patellofemoral crepitus. Both lower extremities were neurovascularly intact, has no evidence of cellulitis, and has no distal swelling. X-RAYS: right Triathlon cruciate retained total knee showing good component sizing, position, and alignment. The patella tracks midline. Radiographic review has no findings of loosening, has no findings of wear, and has bone on bone changes of the left knee medial and patellofemoral compartments. ASSESSMENT: S/P right total knee arthroplasty, significantly improved from pre-operative state, doing well and back to an active lifestyle, and experiencing pain from OA of left knee PLAN: Continue with activities as tolerated Injection, left knee Large Joint Arthro/Inj: L knee joint 03/03/2025 8:39 AM The procedure site was prepped in the usual sterile fashion. Site: L knee joint Medications: 12 mg betamethasone acetate-betamethasone sodium phosphate 6 mg/mL Anesthetics: 3 mL lidocaine (PF) 10 mg/mL (1 %) Outcome: Tolerated well, no immediate complications Post-injection instructions were reviewed with the patient and the patient voiced understanding of these instructions. Informed Consent Consent Obtained: Verbal [place] Protocol A moment to CARE was completed. SIGN IN Personnel directly involved with the procedure wore the appropriate PPE. Special Equipment: N/A Patient/Surrogate Stated/Verified: Patient name, Date of , Relevant allergies and Intended procedure TIME OUT Relevant labs, photos, and/or imaging studies have been reviewed. Consent documented and matches the intended procedure. Correct side/site marked and visible. Medications required for procedure verified. No fire risk assessment and interventions applicable. No implant(s) inserted. Follow up will be in 2 years or earlier, as needed for the left knee. If there are any questions or problems, patient instructed to call the office. Rx Drug Management: No prescription given at today's appointment. Selwyn Leiva PA-C documented in this encounter [facility] 03-03-2025 History of Presen t illness Narrative Radiology Service Progress Note PATIENT NAME: Sylvie Chiu MRN: [id number] DATE OF SERVICE: March 03, 2025 TIME: 8:09 AM PATIENT IDENTITY VERIFICATION COMPLETED USING TWO (2) IDENTIFIERS: Name and Date of confirmed by patient verbally. FALL SCREENING: Has the patient had 2 falls in the last year or 1 fall with injury or currently using an Ambulatory Assistive Device (Walker, Cane, Wheelchair, Crutches, etc.)? No PATIENT GENDER DATA: Assigned male at PATIENT RELEVANT IMPLANT DATA REVIEWED: Not Applicable PATIENT PRESENTS WITH AN IMPLANTABLE OR ATTACHED USER INTERFACE DESIGNER: No RADIOLOGY DEPARTMENT: General X-ray: Exam(s) Completed: Lower Extremity X-Ray(s): Knee, AP / Lat / Tunne / Merchant Left and Wt. Bearing PERIPHERAL IV DATA: Not applicable SIGNED BY: Geno Christina March 03, 2025 8:09 AM documented in this encounter [facility] 03-03-2025 Note HNO ID: [id number] Author: AMISHA GREEN Tech Service: ? Author Type: Electric Fork Operator Type: Progress Notes Filed: 03/03/2025 08:09 Note Text: Radiology Service Progress Note PATIENT NAME: Sylvie Chiu MRN: [id number] DATE OF SERVICE: March 03, 2025 TIME: 8:09 AM PATIENT IDENTITY VERIFICATION COMPLETED USING TWO (2) IDENTIFIERS: Name and Date of confirmed by patient verbally. FALL SCREENING: Has the patient had 2 falls in the last year or 1 fall with injury or currently using an Ambulatory Assistive Device (Walker, Cane, Wheelchair, Crutches, etc.)? No PATIENT GENDER DATA: Assigned male at PATIENT RELEVANT IMPLANT DATA REVIEWED: Not Applicable PATIENT PRESENTS WITH AN IMPLANTABLE OR ATTACHED USER INTERFACE DESIGNER: No RADIOLOGY DEPARTMENT: General X-ray: Exam(s) Completed: Lower Extremity X-Ray(s): Knee, AP / Lat / Tunne / Merchant Left and Wt. Bearing PERIPHERAL IV DATA: Not applicable SIGNED BY: Geno Christina March 03, 2025 8:09 AM [facility] 03-02-2025 Instructions Natan Alcazar DO - 03/02/2025 8:31 AM EDT Post injection Instructions: You received a steroid injection today. Please keep any physical therapy appointments and schedule a follow-up appointment as recommended. Benefits: Injections help with PAIN and allow you to better participate in daily activities and exercise/therapy. Injections do NOT cause healing of arthritis or injuries. As pain is better controlled, this will reduce the need to use anti-inflammatories by mouth and/or if you are not able to take an anti-inflammatory due to other reasons (you have been advised to avoid or they are contra-indicated). Activity recommendations: For the first 24 hours after the injection, keep the area clean and dry. It is okay to shower but no soaking in a tub or swimming. Schedule the injection when you have 1-2 days to rest afterwards. Ideally, no strenuous or vigorous activities (such as running or heavy lifting) for 3 days after the injection. Therefore, plan ahead to have any exercise or errands completed before the injection so you can relax afterwards. After the first week, you can gradually resume normal activities. If you do experience a significant decrease in pain, be careful not to do too much too soon. The martínez is gradual resumption of activities. What to expect: The injection contains lidocaine (which numbs the joint) and a steroid (which decreases inflammation). You may have pain relief within hours (sometimes immediate) due to the lidocaine. The steroid can take a few days, up to a few weeks, to reach the full effect, so please be patient! The numbing medicine you received will wear off in 4-6 hours. It is also possible to have a slight increase in symptoms over the first few days. In order to prevent that, please take some anti-inflammatory (prescription strength, or Ibuprofen, or naprosyn) for the next three to five days. You may also need to ice the injected area at LEAST three times a day as instructed below. How long will an injection last? The length of response to an injection is variable. Patients have experienced relief anywhere from a few weeks to a few years. The injection will decrease the inflammation and the pain will return if/when the inflammation returns. Side effects: - There is a risk of bleeding and infection with any injection (including vaccinations). Precautions are taken to reduce this risk greatly. - If you have diabetes, the steroid component may raise your blood sugars significantly. Your doctor may postpone or recommend other therapies based on your blood sugar control. - Allergic reactions to the lidocaine or steroid can occur. If you have a known allergy to lidocaine or any steroid, please notify your doctor. PLEASE CALL YOUR DOCTOR OR PROCEED TO EMERGENCY ROOM IF: - You develop fevers/chills, redness or warmth at area of injection - You develop rash, difficulty breathing - You have significant worsening of your pain that is not controlled with the above suggestions ICING INSTRUCTIONS For an ice bag, apply for 15-20 minutes at least three times a day, more if needed. Ice in a Ziplog/plastic bag or even a bag of frozen peas/corn will work (and is reusable). You can also use Alvina dish liquid frozen in a ziploc bag. Use a large bottle, dump it in a gallon ziploc bag, zip that and place it inside another ziploc bag. Place in freezer and let it harden to a Play-aure like consistency. Mold it around the part to be iced and use an corky wrap or towel to keep in place. Refreeze and use when needed. For ice massage, fill an empty paper or styrofoam cup nearly full with water, place them in the freezer and let them freeze completely. Tear the top off of the cup leaving the bottom part of the cup intact so you can hold onto it. Rub the ice over the affected area for about [address] to do this is in the shower or the bath (with affected area out of the water) for the contrast of hot water, but it can be done outside of the shower. MEDICATION INSTRUCTIONS Aleve (Naproxen sodium), 1-2 pills, up to twice a day, with food, for 5-10 days, then as needed thereafter. OR Ibuprofen (Motrin), 3-4 pills, up to three times a day, with food, for 5-10 days, then as needed thereafter. Do not take these medications if you have been instructed not to in the past or if you are taking another anti-inflammatory (such as Celebrex, Naprosyn, Relafen, Voltaren, Mobic, Anaprox, etc). Do not take if you have a history of bleeding ulcers in your stomach. If this should start to upset your stomach, stop taking it. Should you have any questions, you may want to ask your pharmacist or give our office a call. AND/OR Tylenol (acetaminophen), three 325mg pills, or two 500mg pills, up to four times a day, for 5-10 days, then as needed thereafter. Do not take this if you have liver problems or have been advised to not take Tylenol in the past. Be careful when combining with other pain relievers as several pain relievers have acetaminophen in them. Should you have any questions, you may want to ask your pharmacist or give our office a call. documented in this encounter [facility] 03-02-2025 History of Presen t illness Narrative Associated Order(s): Small Joint Arthro/Inj: L thumb CMC Post-Procedure Diagnose(s): Arthritis of carpometacarpal (CMC) joint of left thumb Images from the original note were not included. CHIEF COMPLAINT: Patient presents with: Left Wrist - Established Patient, Pain PAIN EVALUATION 03/01/2025 1037 03/02/2025 0753 Pain Level: 6 2 Pain Location: Wrist-Left Wrist-Left Description: Aching;Cramping;Sore;Stabbing;St iffness;Tenderness;Throbbing Aching Duration Amount of Time: -- 5 Duration Units: -- Months Frequency: Continuous Continuous Intervention/Comfort measure: -- Declined HISTORY OF PRESENT ILLNESS: Sylvie Chiu is a 74 year old male presenting for follow-up of left wrist pain. Since last visit, he is doing better. Pain is 6/10 and improving. Current treatment includes USG L CMC CSI in 07/2024. Patient stated after the last injection he did feel a lot better, but now he feels it's wearing off. Past medical, surgical, social and family history were reviewed. Allergies and current medications reviewed. PHYSICAL EXAMINATION: Body Habitus: well nourished and no acute distress Orientation: Normal: Oriented to person, place and time Psych: normal Specific MSK Exam LEFT Hand/Wrist: Inspection: No joint deformities or swelling noted on examination today Tenderness: L CMC, mild tenderness over FCR as well Range of Motion: Finger: normal ROM of all joints of all fingers of both hands Wrist Flexion: normal ROM when compared to the contralateral side Wrist Extension: normal ROM when compared to the contralateral side Muscle Strength: Wrist extension (C6): 4+/5 Wrist flexion (C7): 5/5 Finger abduction: 5/5 Neurologic: Dorsal thumb (radial nerve): Normal sensation to light touch Index finger (median nerve): Normal sensation to light touch 5th finger (ulnar nerve): Normal sensation to light touch Hitchhike sign (PIN): 5/5 Additional testing: CMC grind: painful without crepitant joint IMAGING: No imaging was performed today. CLINICAL IMPRESSION: (M18.12) Arthritis of carpometacarpal (CMC) joint of left thumb (primary encounter diagnosis) Advanced, history of CTR on L with Dr. Wayne. RECOMMENDATION/PLAN: - Risks, benefits, and indications for corticosteroid injections discussed. Injection performed as detailed in the procedure note below. - Continue Celebrex, on Plaquenil - Advised to start using brace for comfort during work - OK for Tylenol as well as ice Follow up: if symptoms persist or worsen Films prior to visit: No additional imaging warranted. Written instructions (see patient instructions) and verbal health teaching given to patient, patient verbalizes understanding and agrees with treatment plan. Small Joint Arthro/Inj: L thumb CMC 03/02/2025 8:49 AM The procedure site was prepped in the usual sterile fashion. Details:Musculoskeletal ultrasound was utilized to successfully localize placement of the injection needle at the appropriate site. Ultrasound images demonstrating local vasculature and demonstrating injection of solution were saved. Medications: 40 mg triamcinolone acetonide 40 mg/mL Anesthetics: 0.5 mL ROPivacaine (PF) 5 mg/mL (0.5 %) Outcome: tolerated well, no immediate complications Post-injection instructions were reviewed with the patient and the patient voiced understanding of these instructions. Informed Consent Consent Obtained: Verbal [place] Protocol A moment to CARE was completed. SIGN IN Personnel directly involved with the procedure wore the appropriate PPE. Patient/Surrogate Stated/Verified: Patient name, Date of , Relevant allergies and Intended procedure TIME OUT Relevant labs, photos, and/or imaging studies have been reviewed. Correct side/site marked and visible. Medications required for procedure verified. SIGN OUT The post-procedure POC has been communicated to the patient or surrogate. Electronically Signed: Natan Alcazar DO Sports Medicine Physician Medical Decision Making documented in this encounter [facility] 03-02-2025 Note HNO ID: [id number] Author: NATAN ALCAZAR DO Service: ? Author Type: Physician Type: Progress Notes Filed: 03/02/2025 08:49 Note Text: CHIEF COMPLAINT: Patient presents with: Left Wrist - Established Patient, Pain PAIN EVALUATION 03/01/2025 1037 03/02/2025 0753 Pain Level: 6 2 Pain Location: Wrist-Left Wrist-Left Description: Aching;Cramping;Sore;Stabbing;St iffness;Tenderness;Throbbing Aching Duration Amount of Time: -- 5 Duration Units: -- Months Frequency: Continuous Continuous Intervention/Comfort measure: -- Declined HISTORY OF PRESENT ILLNESS: Sylvie Chiu is a 74 year old male presenting for follow-up of left wrist pain. Since last visit, he is doing better. Pain is 6/10 and improving. Current treatment includes USG L CMC CSI in 07/2024. Patient stated after the last injection he did feel a lot better, but now he feels it's wearing off. Past medical, surgical, social and family history were reviewed. Allergies and current medications reviewed. PHYSICAL EXAMINATION: Body Habitus: well nourished and no acute distress Orientation: Normal: Oriented to person, place and time Psych: normal Specific MSK Exam LEFT Hand/Wrist: Inspection: No joint deformities or swelling noted on examination today Tenderness: L CMC, mild tenderness over FCR as well Range of Motion: Finger: normal ROM of all joints of all fingers of both hands Wrist Flexion: normal ROM when compared to the contralateral side Wrist Extension: normal ROM when compared to the contralateral side Muscle Strength: Wrist extension (C6): 4+/5 Wrist flexion (C7): 5/5 Finger abduction: 5/5 Neurologic: Dorsal thumb (radial nerve): Normal sensation to light touch Index finger (median nerve): Normal sensation to light touch 5th finger (ulnar nerve): Normal sensation to light touch Hitchhike sign (PIN): 5/5 Additional testing: CMC grind: painful without crepitant joint IMAGING: No imaging was performed today. CLINICAL IMPRESSION: (M18.12) Arthritis of carpometacarpal (CMC) joint of left thumb (primary encounter diagnosis) Advanced, history of CTR on L with Dr. Wayne. RECOMMENDATION/PLAN: - Risks, benefits, and indications for corticosteroid injections discussed. Injection performed as detailed in the procedure note below. - Continue Celebrex, on Plaquenil - Advised to start using brace for comfort during work - OK for Tylenol as well as ice Follow up: if symptoms persist or worsen Films prior to visit: No additional imaging warranted. Written instructions (see patient instructions) and verbal health teaching given to patient, patient verbalizes understanding and agrees with treatment plan. Small Joint Arthro/Inj: L thumb CMC 03/02/2025 8:49 AM The procedure site was prepped in the usual sterile fashion. Details:Musculoskeletal ultrasound was utilized to successfully localize placement of the injection needle at the appropriate site. Ultrasound images demonstrating local vasculature and demonstrating injection of solution were saved. Medications: 40 mg triamcinolone acetonide 40 mg/mL Anesthetics: 0.5 mL ROPivacaine (PF) 5 mg/mL (0.5 %) Outcome: tolerated well, no immediate complications Post-injection instructions were reviewed with the patient and the patient voiced understanding of these instructions. Informed Consent Consent Obtained: Verbal [place] Protocol A moment to CARE was completed. SIGN IN Personnel directly involved with the procedure wore the appropriate PPE. Patient/Surrogate Stated/Verified: Patient name, Date of , Relevant allergies and Intended procedure TIME OUT Relevant labs, photos, and/or imaging studies have been reviewed. Correct side/site marked and visible. Medications required for procedure verified. SIGN OUT The post-procedure POC has been communicated to the patient or surrogate. Electronically Signed: Natan Alcazar DO Sports Medicine Physician Medical Decision Making [facility] 12-23-2024 Note HNO ID: [id number] Author: ROS CHENG RN Service: ? Author Type: Registered Nurse Type: Progress Notes Filed: 12/23/2024 16:11 Note Text: Radiation Therapy - Nursing Note (Follow-up) PATIENT NAME: Sylvie Chiu PATIENT December 23, 2024 [facility] FACILITY/LOCATION: [place] Reason for visit: Follow up. Subjective Data The hyperbaric that I did has helped me. Minimal burning with urination noted and the past 2 weeks no bowel leakage and BM 2 a day Additional Data Do you want to see a Certified Nurse Operating Room? No Difficulty performing or completing routine daily living activities: No Nursing Assessment Fatigue: moderate; causing difficulty performing some activities Appetite: good Weight Gain/Loss: Yes Last 6 Encounter Wt Readings: Date: Wt: 12/23/2024 142 kg (313 lb 1.6 oz) 08/02/2024 142.9 kg (315 lb) 02/18/2024 142.9 kg (315 lb) 12/17/2023 145.1 kg (319 lb 14.2 oz) 12/14/2023 146.1 kg (322 lb) 09/25/2023 143.8 kg (317 lb) Bowel Function: 2 a day first one is formed second one is loose, denied any bleeding Bone Pain: moderate pain: pain or analgesics interfering with function, but not interfering with activities of daily living Focused Assessment PROSTATE - MALE PELVIS: Rectal bleeding: No. Rectal pain: No. Bladder function: urgency, frequency. Urinary frequency (D/N): 8-10/0. Flomax 1-2 a day SIGNED by: Ros Cheng RN [facility] 12-23-2024 History of Presen t illness Narrative Images from the original note were not included. Radiation Therapy - Nursing Note (Follow-up) PATIENT NAME: Sylvie Chiu PATIENT December 23, 2024 [facility] FACILITY/LOCATION: [place] Reason for visit: Follow up. Subjective Data The hyperbaric that I did has helped me. Minimal burning with urination noted and the past 2 weeks no bowel leakage and BM 2 a day Additional Data Do you want to see a Certified Nurse Operating Room? No Difficulty performing or completing routine daily living activities: No Nursing Assessment Fatigue: moderate; causing difficulty performing some activities Appetite: good Weight Gain/Loss: Yes Last 6 Encounter Wt Readings: Date: Wt: 12/23/2024 142 kg (313 lb 1.6 oz) 08/02/2024 142.9 kg (315 lb) 02/18/2024 142.9 kg (315 lb) 12/17/2023 145.1 kg (319 lb 14.2 oz) 12/14/2023 146.1 kg (322 lb) 09/25/2023 143.8 kg (317 lb) Bowel Function: 2 a day first one is formed second one is loose, denied any bleeding Bone Pain: moderate pain: pain or analgesics interfering with function, but not interfering with activities of daily living Focused Assessment PROSTATE - MALE PELVIS: Rectal bleeding: No. Rectal pain: No. Bladder function: urgency, frequency. Urinary frequency (D/N): 8-10/0. Flomax 1-2 a day SIGNED by: Ros Cheng RN Images from the original note were not included. 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 Chiu presents for routine follow-up approximately 2 years after the completion of radiation therapy. Mr. Chiu has a history of BPH managed with tamsulosin. He is noted to have an elevated PSA of 6.29 ng/mL on 10/18/2021. Repeat PSA on 06/04/2022 was 5.5 ng/mL. No prostate nodularity was present on MANJU. Prostate biopsy on 05/08/22 showed adenocarcinoma, Bruce 3+4=7 (1 core), Bruce 3+3=6 (9 cores) (10/13 cores+). CT of the pelvis and bone scan on 06/09/22 showed no metastatic disease. MRI showed evidence of bone metastasis (right femoral neck, right iliac, right posterior acetabulum), enlarged pelvic and bilateral inguinal lymph nodes, and disease at the left peripheral zone (PIRADS 5) bulging the capsule, compressing the adjacent neurovascular bundle. Decipher testing showed a high-risk score (below).* PSMA-PET/CT on 08/07/22 showed no evidence of bone or lymph node metastasis. PSMA-expression lesions were noted in the prostate consistent with the known prostate cancer. He started Lupron on 09/09/22 and completed radiation therapy on 12/15/22. He met with Dr. Alex Erazo (rheumatology on 12/14/23); felt not to have rheumatoid arthritis, but to have OA. He was referred back to urology in January 2024 (Dr. Michelle) due to LUTS - no stricture seen on 02/19/24 He also noted urgent stools. Colonoscopy on 01/27/24 ([facility]) showed non-bleeding diverticula in the sigmoid colon; abnormal vascularity in the proximal rectum compatible with mild radiation proctitis. He underwent HBOT in June - August 2024. PSA HISTORY: ALLERGIES No Known Allergies tamsulosin (FLOMAX) 0.4 mg By mouth, take 1-2 tablets daily (to aid in urination flow) omega-3 fatty acids/fish oil (OMEGA 3 FISH OIL ORAL) Take by mouth once daily. gabapentin (NEURONTIN) 100 mg capsule Take 1 capsule by mouth three times a day for 10 days. celecoxib (CELEBREX) 200 mg capsule Take 200 mg by mouth once daily. hydrOXYchloroQUINE (PLAQUENIL) 200 mg tablet Take 1 tablet by mouth once daily. ipratropium-albuterol (DUONEB) 0.5 mg-3 mg(2.5 mg base)/3 mL nebu Inhale 3 mL as instructed four times daily. furosemide (LASIX) 20 mg tablet Take 1 tablet by mouth once daily. iv contrast (will be provided with radiology test) MRI Prostate Inject, intravenously, once for 1 dose. No IV access, insert saline lock prior to the beginning of sedation, infusion, injection of imaging exam. Discontinue saline lock post exam. If Pt. has a central line or IVAD, may access for administration according to line specific nursing protocol. Once exam is complete flush line and de-access according to line specific nursing protocol in the MR contrast administration guidelines link. acetaminophen (TYLENOL) 325 mg tablet Take 650 mg by mouth as needed. BIPAP ASV Adaptive Servo-Ventilation (ASV) with end-expiratory pressure (EEP) of 9 cmH2O and variable pressure support of 3-10 cmH2O. mask (pt pref), chin strap, heated tubing & humidity, filters. Lifetime supplies. APRIL: G47.33. ALBUTEROL INHALATION Inhale 1 Inhalation as instructed as needed. hot humid weather lisinopril-hydrochlorothiazide (PRINZIDE,ZESTORETIC) 20-12.5 mg per tablet Take 1 tablet by mouth once daily. modafinil(PROVIGIL 200 MG TAB) Take one(1) tablet daily in the morning. pantoprazole (PROTONIX) 40 mg ORAL TbEC Take one(1) tablet daily. BIPAP Please supply patient with Full face mask, [employer] VIP [id number]. REVIEW OF SYSTEMS: He notes energy is a bit better but still remains fatigued, appetite is good Occasional pelvic discomfort. Urination D/N 8-10/0 +Urgency +Hesitency, mostly in the morning. Episodes of double voiding. Occasional leakage Dysuria is minimal for the past 2 weeks Uses Flomax 1-2/day, stream is good. Stools are becoming more normal in the past few weeks. Prior had episodes of bowel leakage. Formed or loose. No blood in stools. PHYSICAL EXAM: Wt (!) 142 kg (313 lb 1.6 oz) BMI 42.46 kg/m KPS: 70 General Appearance: Alert and oriented. No acute distress. Ecchymosis at right buttocks, ~5 cm, no masses ASSESSMENT/PLAN: 74 year old man with high-intermediate risk prostate cancer, [id number], GG2, clinical Stage IIB, iPSA 5.5 [Samantha 3+4=7 (1 core), Bruce 3+3=6 (9 cores) (10/13 cores+); prostate MRI - enlarged pelvic - concern for inguinal LN/bone metastasis, high-risk Decipher test - 0.98; PSMA-PET negative for bone/LN metastasis], s/p: Leuprolide 22.5 mg inj 09/09/22, 12/09/22 Radiation therapy 11/06/22 - 12/15/22 [7000 cGy/6600 cGy/5040 cGy/28 fx to prostate/SVs/pelvic lymph nodes] Doing well overall. No evidence of recurrence. LUTS/BMs manageable, improved after HBOT. I will see him again in 6 months with a PSA level. I spent 30 minutes in the visit in visit preparation / counseling / coordination of care. Signed by: Hussein Ordonez MD cc: MD Doron Hernadez MD documented in this encounter [facility] 12-23-2024 Note HNO ID: [id number] Author: HUSSEIN ORDONEZ MD Service: ? Author Type: Physician Type: Progress Notes Filed: 12/23/2024 16:11 Note Text: Radiation Oncology - Follow Up Note PATIENT NAME: Sylvie Chiu PATIENT DIAGNOSIS: 74 year old man with high-intermediate risk prostate cancer, [id number], GG2, clinical Stage IIB, iPSA 5.5 [Samantha 3+4=7 (1 core), Bruce 3+3=6 (9 cores) (10/13 cores+); prostate MRI - enlarged pelvic - concern for inguinal LN/bone metastasis, high-risk Decipher test - 0.98; PSMA-PET negative for bone/LN metastasis], s/p: Leuprolide 22.5 mg inj 09/09/22, 12/09/22 Radiation therapy 11/06/22 - 12/15/22 [7000 cGy/6600 cGy/5040 cGy/28 fx to prostate/SVs/pelvic lymph nodes] INTERVAL HISTORY: Mr. Chiu presents for routine follow-up approximately 2 years after the completion of radiation therapy. Mr. Chiu has a history of BPH managed with tamsulosin. He is noted to have an elevated PSA of 6.29 ng/mL on 10/18/2021. Repeat PSA on 06/04/2022 was 5.5 ng/mL. No prostate nodularity was present on MANJU. Prostate biopsy on 05/08/22 showed adenocarcinoma, Samantha 3+4=7 (1 core), Samantha 3+3=6 (9 cores) (10/13 cores+). CT of the pelvis and bone scan on 06/09/22 showed no metastatic disease. MRI showed evidence of bone metastasis (right femoral neck, right iliac, right posterior acetabulum), enlarged pelvic and bilateral inguinal lymph nodes, and disease at the left peripheral zone (PIRADS 5) bulging the capsule, compressing the adjacent neurovascular bundle. Decipher testing showed a high-risk score (below).* PSMA-PET/CT on 08/07/22 showed no evidence of bone or lymph node metastasis. PSMA-expression lesions were noted in the prostate consistent with the known prostate cancer. He started Lupron on 09/09/22 and completed radiation therapy on 12/15/22. He met with Dr. Alex Erazo (rheumatology on 12/14/23); felt not to have rheumatoid arthritis, but to have OA. He was referred back to urology in January 2024 (Dr. Michelle) due to LUTS - no stricture seen on 02/19/24 He also noted urgent stools. Colonoscopy on 01/27/24 ([facility]) showed non-bleeding diverticula in the sigmoid colon; abnormal vascularity in the proximal rectum compatible with mild radiation proctitis. He underwent HBOT in June - August 2024. PSA HISTORY: ALLERGIES No Known Allergies tamsulosin (FLOMAX) 0.4 mg By mouth, take 1-2 tablets daily (to aid in urination flow) omega-3 fatty acids/fish oil (OMEGA 3 FISH OIL ORAL) Take by mouth once daily. gabapentin (NEURONTIN) 100 mg capsule Take 1 capsule by mouth three times a day for 10 days. celecoxib (CELEBREX) 200 mg capsule Take 200 mg by mouth once daily. hydrOXYchloroQUINE (PLAQUENIL) 200 mg tablet Take 1 tablet by mouth once daily. ipratropium-albuterol (DUONEB) 0.5 mg-3 mg(2.5 mg base)/3 mL nebu Inhale 3 mL as instructed four times daily. furosemide (LASIX) 20 mg tablet Take 1 tablet by mouth once daily. iv contrast (will be provided with radiology test) MRI Prostate Inject, intravenously, once for 1 dose. No IV access, insert saline lock prior to the beginning of sedation, infusion, injection of imaging exam. Discontinue saline lock post exam. If Pt. has a central line or IVAD, may access for administration according to line specific nursing protocol. Once exam is complete flush line and de-access according to line specific nursing protocol in the MR contrast administration guidelines link. acetaminophen (TYLENOL) 325 mg tablet Take 650 mg by mouth as needed. BIPAP ASV Adaptive Servo-Ventilation (ASV) with end-expiratory pressure (EEP) of 9 cmH2O and variable pressure support of 3-10 cmH2O. mask (pt pref), chin strap, heated tubing AND humidity, filters. Lifetime supplies. APRIL: G47.33. ALBUTEROL INHALATION Inhale 1 Inhalation as instructed as needed. hot humid weather lisinopril-hydrochlorothiazide (PRINZIDE,ZESTORETIC) 20-12.5 mg per tablet Take 1 tablet by mouth once daily. modafinil(PROVIGIL 200 MG TAB) Take one(1) tablet daily in the morning. pantoprazole (PROTONIX) 40 mg ORAL TbEC Take one(1) tablet daily. BIPAP Please supply patient with Full face mask, [employer] VIP [id number]. REVIEW OF SYSTEMS: He notes energy is a bit better but still remains fatigued, appetite is good Occasional pelvic discomfort. Urination D/N 8-10/0 +Urgency +Hesitency, mostly in the morning. Episodes of double voiding. Occasional leakage Dysuria is minimal for the past 2 weeks Uses Flomax 1-2/day, stream is good. Stools are becoming more normal in the past few weeks. Prior had episodes of bowel leakage. Formed or loose. No blood in stools. PHYSICAL EXAM: Wt (!) 142 kg (313 lb 1.6 oz) BMI 42.46 kg/m? KPS: 70 General Appearance: Alert and oriented. No acute distress. Ecchymosis at right buttocks, ~5 cm, no masses ASSESSMENT/PLAN: 74 year old man with high-intermediate risk prostate cancer, [id number], (more content not included)... [facility] 12-19-2024 Telephone encounter Note Message left on spouse's phone that PSA order has been entered. [facility] 12-19-2024 Miscellaneous Notes Message left on spouse's phone that PSA order has been entered. documented in this encounter [facility] 08-16-2024 Instructions Natan Alcazar, - 08/16/2024 4:05 PM EST Post injection Instructions: You received a steroid injection today. Please keep any physical therapy appointments and schedule a follow-up appointment as recommended. Benefits: Injections help with PAIN and allow you to better participate in daily activities and exercise/therapy. Injections do NOT cause healing of arthritis or injuries. As pain is better controlled, this will reduce the need to use anti-inflammatories by mouth and/or if you are not able to take an anti-inflammatory due to other reasons (you have been advised to avoid or they are contra-indicated). Activity recommendations: For the first 24 hours after the injection, keep the area clean and dry. It is okay to shower but no soaking in a tub or swimming. Schedule the injection when you have 1-2 days to rest afterwards. Ideally, no strenuous or vigorous activities (such as running or heavy lifting) for 3 days after the injection. Therefore, plan ahead to have any exercise or errands completed before the injection so you can relax afterwards. After the first week, you can gradually resume normal activities. If you do experience a significant decrease in pain, be careful not to do too much too soon. The martínez is gradual resumption of activities. What to expect: The injection contains lidocaine (which numbs the joint) and a steroid (which decreases inflammation). You may have pain relief within hours (sometimes immediate) due to the lidocaine. The steroid can take a few days, up to a few weeks, to reach the full effect, so please be patient! The numbing medicine you received will wear off in 4-6 hours. It is also possible to have a slight increase in symptoms over the first few days. In order to prevent that, please take some anti-inflammatory (prescription strength, or Ibuprofen, or naprosyn) for the next three to five days. You may also need to ice the injected area at LEAST three times a day as instructed below. How long will an injection last? The length of response to an injection is variable. Patients have experienced relief anywhere from a few weeks to a few years. The injection will decrease the inflammation and the pain will return if/when the inflammation returns. Side effects: - There is a risk of bleeding and infection with any injection (including vaccinations). Precautions are taken to reduce this risk greatly. - If you have diabetes, the steroid component may raise your blood sugars significantly. Your doctor may postpone or recommend other therapies based on your blood sugar control. - Allergic reactions to the lidocaine or steroid can occur. If you have a known allergy to lidocaine or any steroid, please notify your doctor. PLEASE CALL YOUR DOCTOR OR PROCEED TO EMERGENCY ROOM IF: - You develop fevers/chills, redness or warmth at area of injection - You develop rash, difficulty breathing - You have significant worsening of your pain that is not controlled with the above suggestions ICING INSTRUCTIONS For an ice bag, apply for 15-20 minutes at least three times a day, more if needed. Ice in a Ziplog/plastic bag or even a bag of frozen peas/corn will work (and is reusable). You can also use Alvina dish liquid frozen in a ziploc bag. Use a large bottle, dump it in a gallon ziploc bag, zip that and place it inside another ziploc bag. Place in freezer and let it harden to a Play-aure like consistency. Mold it around the part to be iced and use an corky wrap or towel to keep in place. Refreeze and use when needed. For ice massage, fill an empty paper or styrofoam cup nearly full with water, place them in the freezer and let them freeze completely. Tear the top off of the cup leaving the bottom part of the cup intact so you can hold onto it. Rub the ice over the affected area for about [address] to do this is in the shower or the bath (with affected area out of the water) for the contrast of hot water, but it can be done outside of the shower. MEDICATION INSTRUCTIONS Aleve (Naproxen sodium), 1-2 pills, up to twice a day, with food, for 5-10 days, then as needed thereafter. OR Ibuprofen (Motrin), 3-4 pills, up to three times a day, with food, for 5-10 days, then as needed thereafter. Do not take these medications if you have been instructed not to in the past or if you are taking another anti-inflammatory (such as Celebrex, Naprosyn, Relafen, Voltaren, Mobic, Anaprox, etc). Do not take if you have a history of bleeding ulcers in your stomach. If this should start to upset your stomach, stop taking it. Should you have any questions, you may want to ask your pharmacist or give our office a call. AND/OR Tylenol (acetaminophen), three 325mg pills, or two 500mg pills, up to four times a day, for 5-10 days, then as needed thereafter. Do not take this if you have liver problems or have been advised to not take Tylenol in the past. Be careful when combining with other pain relievers as several pain relievers have acetaminophen in them. Should you have any questions, you may want to ask your pharmacist or give our office a call. documented in this encounter [facility] 08-16-2024 History of Presen t illness Narrative Associated Order(s): Small Joint Arthro/Inj: R thumb CMC Post-Procedure Diagnose(s): Primary osteoarthritis of first carpometacarpal joint of right hand Images from the original note were not included. CHIEF COMPLAINT: Patient presents with: Right Thumb - Established Patient, Pain, Injections PAIN EVALUATION 08/15/2024 [id number] 08/16/2024 1601 Pain Level: 5 6 Pain Location: Hand-Right Finger Description: Aching;Burning;Cramping;Numbness ;Pulsating;Radiating;Sharp;Shoot ing;Sore;Stabbing;Throbbing;Tigh tness;Tingling Aching;Sharp Duration Amount of Time: -- 5 Duration Units: -- Years Frequency: Continuous Continuous Intervention/Comfort measure: -- Declined SUBJECTIVE: Sylvie Chiu is a 74 year old male here for consideration of USG R thumb CMC CSI. Last Hgba1c: No results found for: HBA1C Past medical, surgical, social and family history were reviewed. Allergies and current medications reviewed. REVIEW OF SYSTEMS: GENERAL: no recent illness, unexplained weight loss or weight gain NEUROLOGIC: no numbness, tingling, or weakness except as mentioned in HPI, no known neuro problems or deficits SKIN: No rash or new skin changes and no chronic skin problems MSK: as mentioned in HPI PHYSICAL EXAMINATION: GENERAL APPEARANCE: Well appearing, in no acute distress, alert and oriented x3. R thumb - cool to the touch without significant effusion. Skin is intact. Patient remains distally neurovascularly intact at baseline. IMAGING: Final results and radiologist's interpretation, available in the [facility] health record. Images were reviewed with the patient/family members in the office today. My personal interpretation of the performed imaging is chronic degenerative changes. CLINICAL IMPRESSION: (M18.11) Primary osteoarthritis of first carpometacarpal joint of right hand (primary encounter diagnosis) PLAN: Today, in detail, through a thorough evaluation, we discussed possible etiologies of pain and our plans for further diagnostic and therapeutic interventions. We discussed strategies for decreasing pain and improving strength, stability and motion. Patient's questions were answered in detailed. Patient verbalizes understanding and agrees with the treatment plan as discussed. In addition to the comprehensive evaluation as outlined above and as a separate element to the visit today, we have made the determination to proceed with an injection to aid in the treatment of the patient's condition. We discussed risks, benefits, alternatives and expected outcomes of this injection in detail and the patient agreed to proceed. The procedure was performed as detailed below. Small Joint Arthro/Inj: R thumb CMC Informed Consent Consent Obtained: Verbal [place] Protocol A moment to CARE was completed. SIGN IN Personnel directly involved with the procedure wore the appropriate PPE. Patient/Surrogate Stated/Verified: Patient name, Date of , Relevant allergies and Intended procedure TIME OUT Intended patient and procedure match the source document(s). Relevant labs, photos, and/or imaging studies have been reviewed. Correct side/site marked and visible. Medications required for procedure verified. 08/16/2024 4:25 PM The procedure site was prepped in the usual sterile fashion. Details:Musculoskeletal ultrasound was utilized to successfully localize placement of the injection needle at the appropriate site. Ultrasound images demonstrating local vasculature and demonstrating injection of solution were saved. Medications: 40 mg triamcinolone acetonide 40 mg/mL Anesthetics: 0.5 mL lidocaine (PF) 10 mg/mL (1 %) Outcome: tolerated well, no immediate complications Post-injection instructions were reviewed with the patient and the patient voiced understanding of these instructions. SIGN OUT Post-procedure follow-up management communicated and Plan of Care Visit completed when applicable Follow-up: per consulting provider Written instructions (see patient instructions) and verbal health teaching given to patient, patient verbalizes understanding and agrees with treatment plan. Electronically Signed: Natan Alcazar DO Sports Medicine Physician documented in this encounter [facility] 08-16-2024 Note HNO ID: [id number] Author: NATAN ALCAZAR DO Service: ? Author Type: Physician Type: Progress Notes Filed: 08/16/2024 16:25 Note Text: CHIEF COMPLAINT: Patient presents with: Right Thumb - Established Patient, Pain, Injections PAIN EVALUATION 08/15/2024 [id number] 08/16/2024 1601 Pain Level: 5 6 Pain Location: Hand-Right Finger Description: Aching;Burning;Cramping;Numbness ;Pulsating;Radiating;Sharp;Shoot ing;Sore;Stabbin g;Throbbing;Tightness;Tingling Aching;Sharp Duration Amount of Time: -- 5 Duration Units: -- Years Frequency: Continuous Continuous Intervention/Comfort measure: -- Declined SUBJECTIVE: Sylvie Chiu is a 74 year old male here for consideration of USG R thumb CMC CSI. Last Hgba1c: No results found for: HBA1C Past medical, surgical, social and family history were reviewed. Allergies and current medications reviewed. REVIEW OF SYSTEMS: GENERAL: no recent illness, unexplained weight loss or weight gain NEUROLOGIC: no numbness, tingling, or weakness except as mentioned in HPI, no known neuro problems or deficits SKIN: No rash or new skin changes and no chronic skin problems MSK: as mentioned in HPI PHYSICAL EXAMINATION: GENERAL APPEARANCE: Well appearing, in no acute distress, alert and oriented x3. R thumb - cool to the touch without significant effusion. Skin is intact. Patient remains distally neurovascularly intact at baseline. IMAGING: Final results and radiologist's interpretation, available in the [facility] health record. Images were reviewed with the patient/family members in the office today. My personal interpretation of the performed imaging is chronic degenerative changes. CLINICAL IMPRESSION: (M18.11) Primary osteoarthritis of first carpometacarpal joint of right hand (primary encounter diagnosis) PLAN: Today, in detail, through a thorough evaluation, we discussed possible etiologies of pain and our plans for further diagnostic and therapeutic interventions. We discussed strategies for decreasing pain and improving strength, stability and motion. Patient's questions were answered in detailed. Patient verbalizes understanding and agrees with the treatment plan as discussed. In addition to the comprehensive evaluation as outlined above and as a separate element to the visit today, we have made the determination to proceed with an injection to aid in the treatment of the patient's condition. We discussed risks, benefits, alternatives and expected outcomes of this injection in detail and the patient agreed to proceed. The procedure was performed as detailed below. Small Joint Arthro/Inj: R thumb CMC Informed Consent Consent Obtained: Verbal [place] Protocol A moment to CARE was completed. SIGN IN Personnel directly involved with the procedure wore the appropriate PPE. Patient/Surrogate Stated/Verified: Patient name, Date of , Relevant allergies and Intended procedure TIME OUT Intended patient and procedure match the source document(s). Relevant labs, photos, and/or imaging studies have been reviewed. Correct side/site marked and visible. Medications required for procedure verified. 08/16/2024 4:25 PM The procedure site was prepped in the usual sterile fashion. Details:Musculoskeletal ultrasound was utilized to successfully localize placement of the injection needle at the appropriate site. Ultrasound images demonstrating local vasculature and demonstrating injection of solution were saved. Medications: 40 mg triamcinolone acetonide 40 mg/mL Anesthetics: 0.5 mL lidocaine (PF) 10 mg/mL (1 %) Outcome: tolerated well, no immediate complications Post-injection instructions were reviewed with the patient and the patient voiced understanding of these instructions. SIGN OUT Post-procedure follow-up management communicated and Plan of Care Visit completed when applicable Follow-up: per consulting provider Written instructions (see patient instructions) and verbal health teaching given to patient, patient verbalizes understanding and agrees with treatment plan. Electronically Signed: Natan Alcazar DO Sports Medicine Physician [facility] 08-02-2024 History of Presen t illness Narrative Radiology Service Progress Note PATIENT NAME: Sylvie Chiu DATE OF SERVICE: August 02, 2024 TIME: 10:09 AM PATIENT IDENTITY VERIFICATION COMPLETED USING TWO (2) IDENTIFIERS: Name and Date of confirmed by patient verbally. FALL SCREENING: Has the patient had 2 falls in the last year or 1 fall with injury or currently using an Ambulatory Assistive Device (Walker, Cane, Wheelchair, Crutches, etc.)? No PATIENT GENDER DATA: Male PATIENT RELEVANT IMPLANT DATA REVIEWED: Not Applicable PATIENT PRESENTS WITH AN IMPLANTABLE OR ATTACHED USER INTERFACE DESIGNER: No RADIOLOGY DEPARTMENT: General X-ray: Exam(s) Completed: Upper Extremity X-Ray(s): Hand, right PERIPHERAL IV DATA: Not applicable SIGNED BY: PHAN Soares) August 02, 2024 10:09 AM documented in this encounter [facility] 08-02-2024 Note HNO ID: [id number] Author: AVELINA DISLA RT(R) Service: ? Author Type: Electric Fork Operator Type: Progress Notes Filed: 08/02/2024 10:09 Note Text: Radiology Service Progress Note PATIENT NAME: Sylvie Chiu DATE OF SERVICE: August 02, 2024 TIME: 10:09 AM PATIENT IDENTITY VERIFICATION COMPLETED USING TWO (2) IDENTIFIERS: Name and Date of confirmed by patient verbally. FALL SCREENING: Has the patient had 2 falls in the last year or 1 fall with injury or currently using an Ambulatory Assistive Device (Walker, Cane, Wheelchair, Crutches, etc.)? No PATIENT GENDER DATA: Male PATIENT RELEVANT IMPLANT DATA REVIEWED: Not Applicable PATIENT PRESENTS WITH AN IMPLANTABLE OR ATTACHED USER INTERFACE DESIGNER: No RADIOLOGY DEPARTMENT: General X-ray: Exam(s) Completed: Upper Extremity X-Ray(s): Hand, right PERIPHERAL IV DATA: Not applicable SIGNED BY: RT Fany(R) August 02, 2024 10:09 AM [facility] 08-02-2024 History of Presen t illness Narrative Associated Order(s): Small Joint Arthro/Inj: L thumb CMC Post-Procedure Diagnose(s): Arthritis of carpometacarpal (CMC) joint of left thumb CHIEF COMPLAINT: Patient presents with: Left Thumb - New, Pain, Injections Right Thumb - New, Pain PAIN EVALUATION 08/02/2024 0913 Pain Level: 3 Pain Location: Finger Description: Aching;Sharp Duration Amount of Time: 3 Duration Units: Years Frequency: Continuous SUBJECTIVE: Sylvie Chiu is a 74 year old male here for consideration of USG L CMC CSI, referral from Dr. Lee Wayne. Last Hgba1c: No results found for: HBA1C Past medical, surgical, social and family history were reviewed. Allergies and current medications reviewed. REVIEW OF SYSTEMS: GENERAL: no recent illness, unexplained weight loss or weight gain NEUROLOGIC: no numbness, tingling, or weakness except as mentioned in HPI, no known neuro problems or deficits SKIN: No rash or new skin changes and no chronic skin problems MSK: as mentioned in HPI PHYSICAL EXAMINATION: GENERAL APPEARANCE: Well appearing, in no acute distress, alert and oriented x3. L thumb - cool to the touch without significant effusion. Skin is intact. Patient remains distally neurovascularly intact at baseline. IMAGING: No imaging was performed today. CLINICAL IMPRESSION: (M18.12) Arthritis of carpometacarpal (CMC) joint of left thumb (primary encounter diagnosis) (M79.641) Right hand pain PLAN: Today, in detail, through a thorough evaluation, we discussed possible etiologies of pain and our plans for further diagnostic and therapeutic interventions. We discussed strategies for decreasing pain and improving strength, stability and motion. Patient's questions were answered in detailed. Patient verbalizes understanding and agrees with the treatment plan as discussed. In addition to the comprehensive evaluation as outlined above and as a separate element to the visit today, we have made the determination to proceed with an injection to aid in the treatment of the patient's condition. We discussed risks, benefits, alternatives and expected outcomes of this injection in detail and the patient agreed to proceed. The procedure was performed as detailed below. Small Joint Arthro/Inj: L thumb CMC Informed Consent Consent Obtained: Verbal [place] Protocol A moment to CARE was completed. SIGN IN Personnel directly involved with the procedure wore the appropriate PPE. Patient/Surrogate Stated/Verified: Patient name, Date of , Relevant allergies and Intended procedure TIME OUT Intended patient and procedure match the source document(s). Relevant labs, photos, and/or imaging studies have been reviewed. Correct side/site marked and visible. Medications required for procedure verified. 08/02/2024 10:00 AM The procedure site was prepped in the usual sterile fashion. Details:Musculoskeletal ultrasound was utilized to successfully localize placement of the injection needle at the appropriate site. Ultrasound images demonstrating local vasculature and demonstrating injection of solution were saved. Medications: 40 mg triamcinolone acetonide 40 mg/mL Anesthetics: 0.5 mL ROPivacaine (PF) 5 mg/mL (0.5 %) Outcome: tolerated well, no immediate complications Post-injection instructions were reviewed with the patient and the patient voiced understanding of these instructions. SIGN OUT Post-procedure follow-up management communicated and Plan of Care Visit completed when applicable Follow-up: 2 weeks for USG R CMC CSI (XR prior to leaving today) Written instructions (see patient instructions) and verbal health teaching given to patient, patient verbalizes understanding and agrees with treatment plan. Electronically Signed: Natan Alcazar DO Sports Medicine Physician documented in this encounter [facility] 08-02-2024 Note HNO ID: [id number] Author: NATAN ALCAZAR DO Service: ? Author Type: Physician Type: Progress Notes Filed: 08/02/2024 10:01 Note Text: CHIEF COMPLAINT: Patient presents with: Left Thumb - New, Pain, Injections Right Thumb - New, Pain PAIN EVALUATION 08/02/2024 0913 Pain Level: 3 Pain Location: Finger Description: Aching;Sharp Duration Amount of Time: 3 Duration Units: Years Frequency: Continuous SUBJECTIVE: Sylvie Chiu is a 74 year old male here for consideration of USG L CMC CSI, referral from Dr. Lee Wayne. Last Hgba1c: No results found for: HBA1C Past medical, surgical, social and family history were reviewed. Allergies and current medications reviewed. REVIEW OF SYSTEMS: GENERAL: no recent illness, unexplained weight loss or weight gain NEUROLOGIC: no numbness, tingling, or weakness except as mentioned in HPI, no known neuro problems or deficits SKIN: No rash or new skin changes and no chronic skin problems MSK: as mentioned in HPI PHYSICAL EXAMINATION: GENERAL APPEARANCE: Well appearing, in no acute distress, alert and oriented x3. L thumb - cool to the touch without significant effusion. Skin is intact. Patient remains distally neurovascularly intact at baseline. IMAGING: No imaging was performed today. CLINICAL IMPRESSION: (M18.12) Arthritis of carpometacarpal (CMC) joint of left thumb (primary encounter diagnosis) (M79.641) Right hand pain PLAN: Today, in detail, through a thorough evaluation, we discussed possible etiologies of pain and our plans for further diagnostic and therapeutic interventions. We discussed strategies for decreasing pain and improving strength, stability and motion. Patient's questions were answered in detailed. Patient verbalizes understanding and agrees with the treatment plan as discussed. In addition to the comprehensive evaluation as outlined above and as a separate element to the visit today, we have made the determination to proceed with an injection to aid in the treatment of the patient's condition. We discussed risks, benefits, alternatives and expected outcomes of this injection in detail and the patient agreed to proceed. The procedure was performed as detailed below. Small Joint Arthro/Inj: L thumb CMC Informed Consent Consent Obtained: Verbal [place] Protocol A moment to CARE was completed. SIGN IN Personnel directly involved with the procedure wore the appropriate PPE. Patient/Surrogate Stated/Verified: Patient name, Date of , Relevant allergies and Intended procedure TIME OUT Intended patient and procedure match the source document(s). Relevant labs, photos, and/or imaging studies have been reviewed. Correct side/site marked and visible. Medications required for procedure verified. 08/02/2024 10:00 AM The procedure site was prepped in the usual sterile fashion. Details:Musculoskeletal ultrasound was utilized to successfully localize placement of the injection needle at the appropriate site. Ultrasound images demonstrating local vasculature and demonstrating injection of solution were saved. Medications: 40 mg triamcinolone acetonide 40 mg/mL Anesthetics: 0.5 mL ROPivacaine (PF) 5 mg/mL (0.5 %) Outcome: tolerated well, no immediate complications Post-injection instructions were reviewed with the patient and the patient voiced understanding of these instructions. SIGN OUT Post-procedure follow-up management communicated and Plan of Care Visit completed when applicable Follow-up: 2 weeks for USG R CMC CSI (XR prior to leaving today) Written instructions (see patient instructions) and verbal health teaching given to patient, patient verbalizes understanding and agrees with treatment plan. Electronically Signed: Natan Alcazar DO Sports Medicine Physician [facility] 07-07-2024 Telephone encounter Note Patients called checking on prescription for Gabapentin- which was called into pharmacy and looking for info on the US guided injection for his thumb. A consult request was sent to Dr Quintanilla office and they will contact the pt to schedule an appt. verbalized understanding of info. [facility] 07-07-2024 Miscellaneous Notes Patients called checking on prescription for Gabapentin- which was called into pharmacy and looking for info on the US guided injection for his thumb. A consult request was sent to Dr Quintanilla office and they will contact the pt to schedule an appt. verbalized understanding of info. documented in this encounter [facility] 07-06-2024 Telephone encounter Note Images from the original note were not included. Patient Declined Social Work Assessment He states he did not fill this survey out CLARITA Weir [facility] Work Phone: 07-06-2024 Miscellaneous Notes Images from the original note were not included. Patient Declined Social Work Assessment He states he did not fill this survey out C CLARITA Hatch documented in this encounter [facility] 07-05-2024 Note HNO ID: [id number] Author: LEE WAYNE MD Service: ? Author Type: Physician Type: Progress Notes Filed: 07/25/2024 15:23 Note Text: Lee Wayne MD Department of Orthopaedics Orthopaedics [facility] [address] [address] Dept: [phone] July 05, 2024 CHIEF COMPLAINT: Post Op of the Left Wrist and 11 week 4 days post op left CTR. HPI Pt still complaining of pain and numbness. Wondering if a steroid injection may help? ASSESSMENT: M18.12 Arthritis of carpometacarpal (CMC) joint of left thumb (primary encounter diagnosis) SUMMARY/PLAN: He's still dealing with neuritis on the left hand from his carpal tunnel. We'll go with gabapentin. The basal joint (and STT) joints are bothering him quite a bit. He would like to try an US guided injection and we'll help get that arranged. We may have to think about exploration of the carpal tunnel site to check on scar tissue vs. Injury and a nerve wrap. Exam: Healed incision. Positive tinnels in the palm. Swelling down. Motion better. Thumb joint with pain, swelling, positive grind test. Imaging: IMPRESSION: Bone demineralization and degenerative changes with possible scapholunate dissociation Manager Urgent Care: SAMANTHA Transcribe Date/Time: Apr 01 2024 7:48A Dictated by : ISAEL MAGAÑA MD This examination was interpreted and the report reviewed and electronically signed by: ISAEL MAGAÑA MD on Apr 01 2024 7:49AM EST Results-Findings * * *Final Report* * * DATE OF EXAM: Mar 29 2024 10:03AM MANUEL [id number] - XR WRIST 3V PA/LAT/OBL LT / PROCEDURE REASON: [id number] * * * * Physician Interpretation * * * * PROCEDURE: Left wrist INDICATION: Pain .left wrist pain TECHNIQUE: XR WRIST 3V PA/LAT/OBL LT COMPARISON: None FINDINGS: Advanced osteopenia/osteoporosis. 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 Borderline widening of the scapholunate interval. No acute fracture. Mr. Sylvie Chiu was advised as to contrast therapies and/or to take analgesics/anti-inflammatories as needed and all contraindications were reviewed. Supporting Information Below: Medications: Current Outpatient Medications Medication Sig tamsulosin (FLOMAX) 0.4 mg TAKE 2 CAPSULES BY MOUTH EVERY DAY 30 MINUTES AFTER A MEAL celecoxib (CELEBREX) 200 mg capsule Take 200 mg by mouth once daily. hydrOXYchloroQUINE (PLAQUENIL) 200 mg tablet Take 1 tablet by mouth once daily. ipratropium-albuterol (DUONEB) 0.5 mg-3 mg(2.5 mg base)/3 mL nebu Inhale 3 mL as instructed four times daily. furosemide (LASIX) 20 mg tablet Take 1 tablet by mouth once daily. iv contrast (will be provided with radiology test) MRI Prostate Inject, intravenously, once for 1 dose. No IV access, insert saline lock prior to the beginning of sedation, infusion, injection of imaging exam. Discontinue saline lock post exam. If Pt. has a central line or IVAD, may access for administration according to line specific nursing protocol. Once exam is complete flush line and de-access according to line specific nursing protocol in the MR contrast administration guidelines link. (Patient not taking: Reported on 04/26/2024) acetaminophen (TYLENOL) 325 mg tablet Take 650 mg by mouth as needed. BIPAP ASV Adaptive Servo-Ventilation (ASV) with end-expiratory pressure (EEP) of 9 cmH2O and variable pressure support of 3-10 cmH2O. mask (pt pref), chin strap, heated tubing AND humidity, filters. Lifetime supplies. APRIL: G47.33. ALBUTEROL INHALATION Inhale 1 Inhalation as instructed as needed. hot humid weather lisinopril-hydrochlorothiazide (PRINZIDE,ZESTORETIC) 20-12.5 mg per tablet Take 1 tablet by mouth once daily. modafinil(PROVIGIL 200 MG TAB) Take one(1) tablet daily in the morning. pantoprazole (PROTONIX) 40 mg ORAL TbEC Take one(1) tablet daily. BIPAP Please supply patient with Full face mask, Santana Rose VIP [id number]. No current facility-administered medications for this visit. Allergies: Patient has no known allergies. Lee Wayne MD [facility] 07-05-2024 History of Presen t illness Narrative Lee Wayne MD Department of Orthopaedics Orthopaedics [address] [address] Dept: [phone] July 05, 2024 CHIEF COMPLAINT: Post Op of the Left Wrist and 11 week 4 days post op left CTR. HPI Pt still complaining of pain and numbness. Wondering if a steroid injection may help? ASSESSMENT: M18.12 Arthritis of carpometacarpal (CMC) joint of left thumb (primary encounter diagnosis) SUMMARY/PLAN: He's still dealing with neuritis on the left hand from his carpal tunnel. We'll go with gabapentin. The basal joint (and STT) joints are bothering him quite a bit. He would like to try an US guided injection and we'll help get that arranged. We may have to think about exploration of the carpal tunnel site to check on scar tissue vs. Injury and a nerve wrap. Exam: Healed incision. Positive tinnels in the palm. Swelling down. Motion better. Thumb joint with pain, swelling, positive grind test. Imaging: IMPRESSION: Bone demineralization and degenerative changes with possible scapholunate dissociation Manager Urgent Care: SAMANTHA Transcribe Date/Time: Apr 01 2024 7:48A Dictated by : ISAEL MAGAÑA MD This examination was interpreted and the report reviewed and electronically signed by: ISAEL MAGAÑA MD on Apr 01 2024 7:49AM EST Results-Findings * * *Final Report* * * DATE OF EXAM: Mar 29 2024 10:03AM MANUEL 5270 - XR WRIST 3V PA/LAT/OBL LT / PROCEDURE REASON: [id number] * * * * Physician Interpretation * * * * PROCEDURE: Left wrist INDICATION: Pain .left wrist pain TECHNIQUE: XR WRIST 3V PA/LAT/OBL LT COMPARISON: None FINDINGS: Advanced osteopenia/osteoporosis. 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 Borderline widening of the scapholunate interval. No acute fracture. Mr. Sylvie Birch Livmisha was advised as to contrast therapies and/or to take analgesics/anti-inflammatories as needed and all contraindications were reviewed. Supporting Information Below: Medications: Current Outpatient Medications Medication Sig tamsulosin (FLOMAX) 0.4 mg TAKE 2 CAPSULES BY MOUTH EVERY DAY 30 MINUTES AFTER A MEAL celecoxib (CELEBREX) 200 mg capsule Take 200 mg by mouth once daily. hydrOXYchloroQUINE (PLAQUENIL) 200 mg tablet Take 1 tablet by mouth once daily. ipratropium-albuterol (DUONEB) 0.5 mg-3 mg(2.5 mg base)/3 mL nebu Inhale 3 mL as instructed four times daily. furosemide (LASIX) 20 mg tablet Take 1 tablet by mouth once daily. iv contrast (will be provided with radiology test) MRI Prostate Inject, intravenously, once for 1 dose. No IV access, insert saline lock prior to the beginning of sedation, infusion, injection of imaging exam. Discontinue saline lock post exam. If Pt. has a central line or IVAD, may access for administration according to line specific nursing protocol. Once exam is complete flush line and de-access according to line specific nursing protocol in the MR contrast administration guidelines link. (Patient not taking: Reported on 04/26/2024) acetaminophen (TYLENOL) 325 mg tablet Take 650 mg by mouth as needed. BIPAP ASV Adaptive Servo-Ventilation (ASV) with end-expiratory pressure (EEP) of 9 cmH2O and variable pressure support of 3-10 cmH2O. mask (pt pref), chin strap, heated tubing & humidity, filters. Lifetime supplies. APRIL: G47.33. ALBUTEROL INHALATION Inhale 1 Inhalation as instructed as needed. hot humid weather lisinopril-hydrochlorothiazide (PRINZIDE,ZESTORETIC) 20-12.5 mg per tablet Take 1 tablet by mouth once daily. modafinil(PROVIGIL 200 MG TAB) Take one(1) tablet daily in the morning. pantoprazole (PROTONIX) 40 mg ORAL TbEC Take one(1) tablet daily. BIPAP Please supply patient with Full face mask, Santana Milton VIP [id number]. No current facility-administered medications for this visit. Allergies: Patient has no known allergies. Lee Wayne MD documented in this encounter [facility] 06-24-2024 Nurse Note Images from the original note were not included. Radiation Therapy - Nursing Note (Follow-up) PATIENT NAME: Sylvie Chiu PATIENT June 24, 2024 [facility] FACILITY/LOCATION: [place] Reason for visit: Follow up. Subjective Data I still maya with bowel and bladder problems since the radiation and the side effects from the Lupron injections Additional Data Do you want to see a Certified Nurse Operating Room? No Difficulty performing or completing routine daily living activities: No Nursing Assessment Fatigue: moderate; causing difficulty performing some activities Appetite: good Weight Gain/Loss: No Last 6 Encounter Wt Readings: Date: Wt: 02/18/2024 142.9 kg (315 lb) 12/17/2023 145.1 kg (319 lb 14.2 oz) 12/14/2023 146.1 kg (322 lb) 09/25/2023 143.8 kg (317 lb) 06/15/2023 143.8 kg (317 lb) 03/12/2023 139.4 kg (307 lb 6.4 oz) Bowel Function: loose 2-4 a day will have leakage when bending over at time denies bleeding Bone Pain: moderate pain: pain or analgesics interfering with function, but not interfering with activities of daily living Focused Assessment PROSTATE - MALE PELVIS: Rectal bleeding: No. Rectal pain: No. Bladder function: urgency, frequency, incomplete emptying. Urinary frequency (D/N): 06/28.reports pelvic pain when he has to urinate at night which wakes him up; not the urge to urinate. Flomax 1 AM and 1 PM PSA lab completed 06-06-24 Hot flash at times will occur Future Appointments Date Time Provider Department Center 07/05[facility]2024 10:45 AM [facility] 08/12/2024 10:50 AM Selwyn Michelle MD [facility] 09/12/2024 8:00 AM Francisco Davis APRN.SUPERVISOR ALUMINUM BOAT ASSEMBLY [facility] 12/19/2024 8:00 AM [facility] 12/23/2024 9:00 AM Hussein Ordonez MD RADRST [facility] 12/27/2024 9:00 AM Alex Erazo MD R[facility] SIGNED by: Ros Cheng, RN [facility] 06-24-2024 Nurse Note Images from the original note were not included. Radiation Therapy - Nursing Note (Follow-up) PATIENT NAME: Sylvie Chiu PATIENT June 24, 2024 [facility] FACILITY/LOCATION: [place] Reason for visit: Follow up. Subjective Data I still maya with bowel and bladder problems since the radiation and the side effects from the Lupron injections Additional Data Do you want to see a Certified Nurse Operating Room? No Difficulty performing or completing routine daily living activities: No Nursing Assessment Fatigue: moderate; causing difficulty performing some activities Appetite: good Weight Gain/Loss: No Last 6 Encounter Wt Readings: Date: Wt: 02/18/2024 142.9 kg (315 lb) 12/17/2023 145.1 kg (319 lb 14.2 oz) 12/14/2023 146.1 kg (322 lb) 09/25/2023 143.8 kg (317 lb) 06/15/2023 143.8 kg (317 lb) 03/12/2023 139.4 kg (307 lb 6.4 oz) Bowel Function: loose 2-4 a day will have leakage when bending over at time denies bleeding Bone Pain: moderate pain: pain or analgesics interfering with function, but not interfering with activities of daily living Focused Assessment PROSTATE - MALE PELVIS: Rectal bleeding: No. Rectal pain: No. Bladder function: urgency, frequency, incomplete emptying. Urinary frequency (D/N): 06/28.reports pelvic pain when he has to urinate at night which wakes him up; not the urge to urinate. Flomax 1 AM and 1 PM PSA lab completed 06-06-24 Hot flash at times will occur Future Appointments Date Time Provider Department Center 07/05[facility]24 10:45 [facility] 10:50 AM Selwyn Michelle MD [facility] 09/12/2024 8:00 AM Francisco Davis APRN.SUPERVISOR ALUMINUM BOAT ASSEMBLY [facility] 12/19/2024 8:00 [facility] 12/23/[facility] 9:00 AM Hussein Ordonez MD RADRST [facility] 12/27/2024 9:00 AM Alex Erazo MD [facility] SIGNED by: Ros Cheng, DYLAN documented in this encounter [facility] 06-24-2024 History of Presen t illness Narrative Images from the original note were not included. 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 Chiu presents for routine follow-up approximately 1.5 years after the completion of radiation therapy. Mr. Chiu has a history of BPH managed with tamsulosin. He is noted to have an elevated PSA of 6.29 ng/mL on 10/18/2021. Repeat PSA on 06/04/2022 was 5.5 ng/mL. No prostate nodularity was present on MANJU. Prostate biopsy on 05/08/22 showed adenocarcinoma, Bruce 3+4=7 (1 core), Samantha 3+3=6 (9 cores) (10/13 cores+). CT of the pelvis and bone scan on 06/09/22 showed no metastatic disease. MRI showed evidence of bone metastasis (right femoral neck, right iliac, right posterior acetabulum), enlarged pelvic and bilateral inguinal lymph nodes, and disease at the left peripheral zone (PIRADS 5) bulging the capsule, compressing the adjacent neurovascular bundle. Decipher testing showed a high-risk score (below).* PSMA-PET/CT on 08/07/22 showed no evidence of bone or lymph node metastasis. PSMA-expression lesions were noted in the prostate consistent with the known prostate cancer. He started Lupron on 09/09/22 and completed radiation therapy on 12/15/22. He met with Dr. Alex Erazo (rheumatology on 12/14/23); felt not to have rheumatoid arthritis, but to have OA. He was referred back to urology in January 2024 (Dr. Michelle) due to LUTS - no stricture seen on 02/19/24 He also noted urgent stools. Colonoscopy on 01/27/24 ([facility]) showed non-bleeding diverticula in the sigmoid colon; abnormal vascularity in the proximal rectum compatible with mild radiation proctitis. PSA HISTORY: PSA (ng/mL) Date Value 06/06/2024 0.03 12/10/2023 0.07 06/11/2023 0.02 03/09/2023 0.03 10/18/2021 6.29 PSA Screening (NG/ML) Date Value 12/12/2008 2.4 ALLERGIES No Known Allergies tamsulosin (FLOMAX) 0.4 mg TAKE 2 CAPSULES BY MOUTH EVERY DAY 30 MINUTES AFTER A MEAL celecoxib (CELEBREX) 200 mg capsule Take 200 mg by mouth once daily. hydrOXYchloroQUINE (PLAQUENIL) 200 mg tablet Take 1 tablet by mouth once daily. ipratropium-albuterol (DUONEB) 0.5 mg-3 mg(2.5 mg base)/3 mL nebu Inhale 3 mL as instructed four times daily. furosemide (LASIX) 20 mg tablet Take 1 tablet by mouth once daily. iv contrast (will be provided with radiology test) MRI Prostate Inject, intravenously, once for 1 dose. No IV access, insert saline lock prior to the beginning of sedation, infusion, injection of imaging exam. Discontinue saline lock post exam. If Pt. has a central line or IVAD, may access for administration according to line specific nursing protocol. Once exam is complete flush line and de-access according to line specific nursing protocol in the MR contrast administration guidelines link. (Patient not taking: Reported on 04/26/2024) acetaminophen (TYLENOL) 325 mg tablet Take 650 mg by mouth as needed. BIPAP ASV Adaptive Servo-Ventilation (ASV) with end-expiratory pressure (EEP) of 9 cmH2O and variable pressure support of 3-10 cmH2O. mask (pt pref), chin strap, heated tubing & humidity, filters. Lifetime supplies. APRIL: G47.33. ALBUTEROL INHALATION Inhale 1 Inhalation as instructed as needed. hot humid weather lisinopril-hydrochlorothiazide (PRINZIDE,ZESTORETIC) 20-12.5 mg per tablet Take 1 tablet by mouth once daily. modafinil(PROVIGIL 200 MG TAB) Take one(1) tablet daily in the morning. pantoprazole (PROTONIX) 40 mg ORAL TbEC Take one(1) tablet daily. BIPAP Please supply patient with Full face mask, [employer] VIP [id number]. REVIEW OF SYSTEMS: He remains fatigued, appetite is good +Joint pains D/N = 06/28 due to internal pelvic pain at night, wakes him up and he must urinate. +Urgency/retention +Internal burning sensation Stream in the morning is slow Medications to aid urination: Flomax bid Bowel movement frequency: 2-4/day, episodes of stool incontinence, stools are loose. AUA 25 PHYSICAL EXAM: There were no vitals taken for this visit. KPS: 70 General Appearance: Alert and oriented. No acute distress. Ecchymosis at right buttocks, ~5 cm, no masses ASSESSMENT/PLAN: 74 year old man with high-intermediate risk prostate cancer, [id number], GG2, clinical Stage IIB, iPSA 5.5 [Samantha 3+4=7 (1 core), Samantha 3+3=6 (9 cores) (07/10 cores+); prostate MRI - enlarged pelvic - concern for inguinal LN/bone metastasis, high-risk Decipher test - 0.98; PSMA-PET negative for bone/LN metastasis], s/p: Leuprolide 22.5 mg inj 09/09/22, 12/09/22 Radiation therapy 11/06/22 - 12/15/22 [7000 cGy/6600 cGy/5040 cGy/28 fx to prostate/SVs/pelvic lymph nodes] No evidence of biochemical recurrence. Describes symptoms of cystitis/proctitis persist. Inflammation noted on cystoscopy (02/19/24) and radiation proctitis on colonoscopy (01/27/24). No stricture on cystoscopy. HBOT will be requested. I will see him again in 6 months with a PSA level. I spent 15 minutes in the visit in counseling / coordination of care. Signed by: Hussein Ordonez MD cc: MD Doron Hernadez MD documented in this encounter [facility] 06-24-2024 Note HNO ID: [id number] Author: HUSSEIN ORDONEZ MD Service: ? Author Type: Physician Type: Progress Notes Filed: 06/24/2024 11:47 Note Text: Radiation Oncology - Follow Up Note PATIENT NAME: Sylvie Chiu PATIENT DIAGNOSIS: 74 year old man with high-intermediate risk prostate cancer, [id number], GG2, clinical Stage IIB, iPSA 5.5 [Samantha 3+4=7 (1 core), Samantha 3+3=6 (9 cores) (10/13 cores+); prostate MRI - enlarged pelvic - concern for inguinal LN/bone metastasis, high-risk Decipher test - 0.98; PSMA-PET negative for bone/LN metastasis], s/p: Leuprolide 22.5 mg inj 09/09/22, 12/09/22 Radiation therapy 11/06/22 - 12/15/22 [7000 cGy/6600 cGy/5040 cGy/28 fx to prostate/SVs/pelvic lymph nodes] INTERVAL HISTORY: Mr. Chiu presents for routine follow-up approximately 1.5 years after the completion of radiation therapy. Mr. Chiu has a history of BPH managed with tamsulosin. He is noted to have an elevated PSA of 6.29 ng/mL on 10/18/2021. Repeat PSA on 06/04/2022 was 5.5 ng/mL. No prostate nodularity was present on MANJU. Prostate biopsy on 05/08/22 showed adenocarcinoma, Samantha 3+4=7 (1 core), Samantha 3+3=6 (9 cores) (10/13 cores+). CT of the pelvis and bone scan on 06/09/22 showed no metastatic disease. MRI showed evidence of bone metastasis (right femoral neck, right iliac, right posterior acetabulum), enlarged pelvic and bilateral inguinal lymph nodes, and disease at the left peripheral zone (PIRADS 5) bulging the capsule, compressing the adjacent neurovascular bundle. Decipher testing showed a high-risk score (below).* PSMA-PET/CT on 08/07/22 showed no evidence of bone or lymph node metastasis. PSMA-expression lesions were noted in the prostate consistent with the known prostate cancer. He started Lupron on 09/09/22 and completed radiation therapy on 12/15/22. He met with Dr. Alex Erazo (rheumatology on 12/14/23); felt not to have rheumatoid arthritis, but to have OA. He was referred back to urology in January 2024 (Dr. Michelle) due to LUTS - no stricture seen on 02/19/24 He also noted urgent stools. Colonoscopy on 01/27/24 ([facility]) showed non-bleeding diverticula in the sigmoid colon; abnormal vascularity in the proximal rectum compatible with mild radiation proctitis. PSA HISTORY: PSA (ng/mL) Date Value 06/06/2024 0.03 12/10/2023 0.07 06/11/2023 0.02 03/09/2023 0.03 10/18/2021 6.29 PSA Screening (NG/ML) Date Value 12/12/2008 2.4 ALLERGIES No Known Allergies tamsulosin (FLOMAX) 0.4 mg TAKE 2 CAPSULES BY MOUTH EVERY DAY 30 MINUTES AFTER A MEAL celecoxib (CELEBREX) 200 mg capsule Take 200 mg by mouth once daily. hydrOXYchloroQUINE (PLAQUENIL) 200 mg tablet Take 1 tablet by mouth once daily. ipratropium-albuterol (DUONEB) 0.5 mg-3 mg(2.5 mg base)/3 mL nebu Inhale 3 mL as instructed four times daily. furosemide (LASIX) 20 mg tablet Take 1 tablet by mouth once daily. iv contrast (will be provided with radiology test) MRI Prostate Inject, intravenously, once for 1 dose. No IV access, insert saline lock prior to the beginning of sedation, infusion, injection of imaging exam. Discontinue saline lock post exam. If Pt. has a central line or IVAD, may access for administration according to line specific nursing protocol. Once exam is complete flush line and de-access according to line specific nursing protocol in the MR contrast administration guidelines link. (Patient not taking: Reported on 04/26/2024) acetaminophen (TYLENOL) 325 mg tablet Take 650 mg by mouth as needed. BIPAP ASV Adaptive Servo-Ventilation (ASV) with end-expiratory pressure (EEP) of 9 cmH2O and variable pressure support of 3-10 cmH2O. mask (pt pref), chin strap, heated tubing AND humidity, filters. Lifetime supplies. APRIL: G47.33. ALBUTEROL INHALATION Inhale 1 Inhalation as instructed as needed. hot humid weather lisinopril-hydrochlorothiazide (PRINZIDE,ZESTORETIC) 20-12.5 mg per tablet Take 1 tablet by mouth once daily. modafinil(PROVIGIL 200 MG TAB) Take one(1) tablet daily in the morning. pantoprazole (PROTONIX) 40 mg ORAL TbEC Take one(1) tablet daily. BIPAP Please supply patient with Full face mask, [employer] VIP [id number]. REVIEW OF SYSTEMS: He remains fatigued, appetite is good +Joint pains D/N = 06/28 due to internal pelvic pain at night, wakes him up and he must urinate. +Urgency/retention +Internal burning sensation Stream in the morning is slow Medications to aid urination: Flomax bid Bowel movement frequency: 2-4/day, episodes of stool incontinence, stools are loose. AUA 25 PHYSICAL EXAM: There were no vitals taken for this visit. KPS: 70 General Appearance: Alert and oriented. No acute distress. Ecchymosis at right buttocks, ~5 cm, no masses ASSESSMENT/PLAN: 74 year old man with high-intermediate risk prostate cancer, [id number], GG2, clinical Stage IIB, iPSA 5.5 [Bruce 3+4=7 (1 core), Bruce 3+3=6 (9 cores) (07/10 cores (more content not included)... [facility] 05-24-2024 Note HNO ID: [id number] Author: LEE WAYNE MD Service: ? Author Type: Physician Type: Progress Notes Filed: 06/21/2024 09:16 Note Text: Lee Wayne MD Department of Orthopaedics Orthopaedics [address] [address] Dept: [phone] May 24, 2024 CHIEF COMPLAINT: Established Patient and Post Op of the Left Hand. HPI Patient here today for 5 week 4 days post op left CTR. He is still having some numbness in the thumb, middle and ring fingers and weakness in the wrist. ASSESSMENT: G56.02 Carpal tunnel syndrome on left (primary encounter diagnosis) SUMMARY/PLAN: He is doing quite well with expected, mildly improved numbness in the distribution of the median nerve. He can proceed with activities as tolerated and follow-up as needed, discussion about that this may take 6 to 12 months for full nerve improvement. Exam: Healed incision. Minimal swelling. Good range of motion. Neurovascular exam grossly intact. Supporting Information Below: Medications: Current Outpatient Medications Medication Sig tamsulosin (FLOMAX) 0.4 mg TAKE 2 CAPSULES BY MOUTH EVERY DAY 30 MINUTES AFTER A MEAL celecoxib (CELEBREX) 200 mg capsule Take 200 mg by mouth once daily. hydrOXYchloroQUINE (PLAQUENIL) 200 mg tablet Take 1 tablet by mouth once daily. ALBUTEROL INHALATION Inhale 1 Inhalation as instructed as needed. hot humid weather lisinopril-hydrochlorothiazide (PRINZIDE,ZESTORETIC) 20-12.5 mg per tablet Take 1 tablet by mouth once daily. modafinil(PROVIGIL 200 MG TAB) Take one(1) tablet daily in the morning. pantoprazole (PROTONIX) 40 mg ORAL TbEC Take one(1) tablet daily. ipratropium-albuterol (DUONEB) 0.5 mg-3 mg(2.5 mg base)/3 mL nebu Inhale 3 mL as instructed four times daily. furosemide (LASIX) 20 mg tablet Take 1 tablet by mouth once daily. iv contrast (will be provided with radiology test) MRI Prostate Inject, intravenously, once for 1 dose. No IV access, insert saline lock prior to the beginning of sedation, infusion, injection of imaging exam. Discontinue saline lock post exam. If Pt. has a central line or IVAD, may access for administration according to line specific nursing protocol. Once exam is complete flush line and de-access according to line specific nursing protocol in the MR contrast administration guidelines link. (Patient not taking: Reported on 04/26/2024) acetaminophen (TYLENOL) 325 mg tablet Take 650 mg by mouth as needed. BIPAP ASV Adaptive Servo-Ventilation (ASV) with end-expiratory pressure (EEP) of 9 cmH2O and variable pressure support of 3-10 cmH2O. mask (pt pref), chin strap, heated tubing AND humidity, filters. Lifetime supplies. PARIL: G47.33. BIPAP Please supply patient with Full face mask, Santana Nassarolph VIP [id number]. No current facility-administered medications for this visit. Allergies: Patient has no known allergies. Lee Wayne MD [facility] 05-24-2024 History of Presen t illness Narrative Lee Wayne MD Department of Orthopaedics Orthopaedics [address] [place] [address] Dept: [phone] May 24, 2024 CHIEF COMPLAINT: Established Patient and Post Op of the Left Hand. HPI Patient here today for 5 week 4 days post op left CTR. He is still having some numbness in the thumb, middle and ring fingers and weakness in the wrist. ASSESSMENT: G56.02 Carpal tunnel syndrome on left (primary encounter diagnosis) SUMMARY/PLAN: He is doing quite well with expected, mildly improved numbness in the distribution of the median nerve. He can proceed with activities as tolerated and follow-up as needed, discussion about that this may take 6 to 12 months for full nerve improvement. Exam: Healed incision. Minimal swelling. Good range of motion. Neurovascular exam grossly intact. Supporting Information Below: Medications: Current Outpatient Medications Medication Sig tamsulosin (FLOMAX) 0.4 mg TAKE 2 CAPSULES BY MOUTH EVERY DAY 30 MINUTES AFTER A MEAL celecoxib (CELEBREX) 200 mg capsule Take 200 mg by mouth once daily. hydrOXYchloroQUINE (PLAQUENIL) 200 mg tablet Take 1 tablet by mouth once daily. ALBUTEROL INHALATION Inhale 1 Inhalation as instructed as needed. hot humid weather lisinopril-hydrochlorothiazide (PRINZIDE,ZESTORETIC) 20-12.5 mg per tablet Take 1 tablet by mouth once daily. modafinil(PROVIGIL 200 MG TAB) Take one(1) tablet daily in the morning. pantoprazole (PROTONIX) 40 mg ORAL TbEC Take one(1) tablet daily. ipratropium-albuterol (DUONEB) 0.5 mg-3 mg(2.5 mg base)/3 mL nebu Inhale 3 mL as instructed four times daily. furosemide (LASIX) 20 mg tablet Take 1 tablet by mouth once daily. iv contrast (will be provided with radiology test) MRI Prostate Inject, intravenously, once for 1 dose. No IV access, insert saline lock prior to the beginning of sedation, infusion, injection of imaging exam. Discontinue saline lock post exam. If Pt. has a central line or IVAD, may access for administration according to line specific nursing protocol. Once exam is complete flush line and de-access according to line specific nursing protocol in the MR contrast administration guidelines link. (Patient not taking: Reported on 04/26/2024) acetaminophen (TYLENOL) 325 mg tablet Take 650 mg by mouth as needed. BIPAP ASV Adaptive Servo-Ventilation (ASV) with end-expiratory pressure (EEP) of 9 cmH2O and variable pressure support of 3-10 cmH2O. mask (pt pref), chin strap, heated tubing & humidity, filters. Lifetime supplies. APRIL: G47.33. BIPAP Please supply patient with Full face mask, [employer] VIP [id number]. No current facility-administered medications for this visit. Allergies: Patient has no known allergies. Lee Wayne MD documented in this encounter [facility] 04-26-2024 Note HNO ID: [id number] Author: AFSANEH HANSEN PA-C Service: ? Author Type: Physician Cost Estimator Type: Progress Notes Filed: 04/26/2024 12:04 Note Text: Afsaneh Hansen PA-C Department of Orthopaedics Orthopaedics [address] [place], [place] [id number] Dept: [phone] April 26, 2024 CHIEF COMPLAINT: Post Op and Pain of the Left Hand. ASSESSMENT: G56.02 Carpal tunnel syndrome on left (primary encounter diagnosis) SUMMARY/PLAN: Patient presents 1 week and 3 days status post left carpal tunnel release. He is doing a little better, still complaining of some pain in the base of his thumb, numbness in the middle digit and some clicking in his wrist. We discussed proper hand washing, no soaking of the operative hand. No heavy lifting, pushing or pulling with the operative hand, encourage gentle motion. We discussed scar massage. Follow up as planned. Exam: Incision site is well approximated without erythema or drainage. Mild but appropriate edema without ecchymosis. Subjective numbness in the left thumb and middle digit. Imaging: Deferred today. Mr. Sylvie Chiu was advised as to contrast therapies and/or to take analgesics/anti-inflammatories as needed and all contraindications were reviewed. Supporting Information Below: Medications: Current Outpatient Medications Medication Sig celecoxib (CELEBREX) 200 mg capsule Take 200 mg by mouth once daily. hydrOXYchloroQUINE (PLAQUENIL) 200 mg tablet Take 1 tablet by mouth once daily. ipratropium-albuterol (DUONEB) 0.5 mg-3 mg(2.5 mg base)/3 mL nebu Inhale 3 mL as instructed four times daily. tamsulosin (FLOMAX) 0.4 mg TAKE 2 CAPSULES BY MOUTH ONCE DAILY 30 MINUTES AFTER A MEAL furosemide (LASIX) 20 mg tablet Take 1 tablet by mouth once daily. acetaminophen (TYLENOL) 325 mg tablet Take 650 mg by mouth as needed. BIPAP ASV Adaptive Servo-Ventilation (ASV) with end-expiratory pressure (EEP) of 9 cmH2O and variable pressure support of 3-10 cmH2O. mask (pt pref), chin strap, heated tubing AND humidity, filters. Lifetime supplies. APRIL: G47.33. ALBUTEROL INHALATION Inhale 1 Inhalation as instructed as needed. hot humid weather lisinopril-hydrochlorothiazide (PRINZIDE,ZESTORETIC) 20-12.5 mg per tablet Take 1 tablet by mouth once daily. modafinil(PROVIGIL 200 MG TAB) Take one(1) tablet daily in the morning. pantoprazole (PROTONIX) 40 mg ORAL TbEC Take one(1) tablet daily. BIPAP Please supply patient with Full face mask, Santana Milton VIP [id number]. iv contrast (will be provided with radiology test) MRI Prostate Inject, intravenously, once for 1 dose. No IV access, insert saline lock prior to the beginning of sedation, infusion, injection of imaging exam. Discontinue saline lock post exam. If Pt. has a central line or IVAD, may access for administration according to line specific nursing protocol. Once exam is complete flush line and de-access according to line specific nursing protocol in the MR contrast administration guidelines link. (Patient not taking: Reported on 04/26/2024) No current facility-administered medications for this visit. Allergies: Patient has no known allergies. This note was partially generated using [employer] voice recognition system, and there may be some incorrect words, spellings, and punctuation that were not noted in checking the note before saving. Afsaneh Hansen PA-C [facility] 04-26-2024 History of Presen t illness Narrative Afsaneh Hansen PA-C Department of Orthopaedics Orthopaedics [address] [place] [address] Dept: [phone] April 26, 2024 CHIEF COMPLAINT: Post Op and Pain of the Left Hand. ASSESSMENT: G56.02 Carpal tunnel syndrome on left (primary encounter diagnosis) SUMMARY/PLAN: Patient presents 1 week and 3 days status post left carpal tunnel release. He is doing a little better, still complaining of some pain in the base of his thumb, numbness in the middle digit and some clicking in his wrist. We discussed proper hand washing, no soaking of the operative hand. No heavy lifting, pushing or pulling with the operative hand, encourage gentle motion. We discussed scar massage. Follow up as planned. Exam: Incision site is well approximated without erythema or drainage. Mild but appropriate edema without ecchymosis. Subjective numbness in the left thumb and middle digit. Imaging: Deferred today. Mr. Sylvie Chiu was advised as to contrast therapies and/or to take analgesics/anti-inflammatories as needed and all contraindications were reviewed. Supporting Information Below: Medications: Current Outpatient Medications Medication Sig celecoxib (CELEBREX) 200 mg capsule Take 200 mg by mouth once daily. hydrOXYchloroQUINE (PLAQUENIL) 200 mg tablet Take 1 tablet by mouth once daily. ipratropium-albuterol (DUONEB) 0.5 mg-3 mg(2.5 mg base)/3 mL nebu Inhale 3 mL as instructed four times daily. tamsulosin (FLOMAX) 0.4 mg TAKE 2 CAPSULES BY MOUTH ONCE DAILY 30 MINUTES AFTER A MEAL furosemide (LASIX) 20 mg tablet Take 1 tablet by mouth once daily. acetaminophen (TYLENOL) 325 mg tablet Take 650 mg by mouth as needed. BIPAP ASV Adaptive Servo-Ventilation (ASV) with end-expiratory pressure (EEP) of 9 cmH2O and variable pressure support of 3-10 cmH2O. mask (pt pref), chin strap, heated tubing & humidity, filters. Lifetime supplies. APRIL: G47.33. ALBUTEROL INHALATION Inhale 1 Inhalation as instructed as needed. hot humid weather lisinopril-hydrochlorothiazide (PRINZIDE,ZESTORETIC) 20-12.5 mg per tablet Take 1 tablet by mouth once daily. modafinil(PROVIGIL 200 MG TAB) Take one(1) tablet daily in the morning. pantoprazole (PROTONIX) 40 mg ORAL TbEC Take one(1) tablet daily. BIPAP Please supply patient with Full face mask, Santana Keller VIP [id number]. iv contrast (will be provided with radiology test) MRI Prostate Inject, intravenously, once for 1 dose. No IV access, insert saline lock prior to the beginning of sedation, infusion, injection of imaging exam. Discontinue saline lock post exam. If Pt. has a central line or IVAD, may access for administration according to line specific nursing protocol. Once exam is complete flush line and de-access according to line specific nursing protocol in the MR contrast administration guidelines link. (Patient not taking: Reported on 04/26/2024) No current facility-administered medications for this visit. Allergies: Patient has no known allergies. This note was partially generated using [employer] voice recognition system, and there may be some incorrect words, spellings, and punctuation that were not noted in checking the note before saving. Afsaneh Hansen PA-C documented in this encounter [facility] 03-30-2024 Telephone encounter Note Surgery has been scheduled as requested. Post op appointments have been scheduled and mailed to the patient. [facility] 03-30-2024 Miscellaneous Notes Surgery has been scheduled as requested. Post op appointments have been scheduled and mailed to the patient. Surgical request completed for left CTR at [facility] on 04/15/2024 with local anesthesia. documented in this encounter [facility] 03-29-2024 Telephone encounter Note Surgical request completed for left CTR at [facility] on 04/15/2024 with local anesthesia. [facility] 03-29-2024 Note HNO ID: [id number] Author: LEE WAYNE MD Service: ? Author Type: Physician Type: Progress Notes Filed: 04/04/2024 12:35 Note Text: Lee Wayne MD Department of Orthopaedics Orthopaedics [address] [place] [address] Dept: [phone] March 29, 2024 CHIEF COMPLAINT: New and Pain of the Left Hand HPI Patient here today for left hand/wrist pain. 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 He is right hand dominant. Ultrasound completed on 02/01/2024. ASSESSMENT: G56.02 Carpal tunnel syndrome of left wrist (primary encounter diagnosis) PLAN: We reviewed the risks, benefits, alternatives and potential complications involving both operative and nonoperative treatment. A number of years ago, he successfully underwent right-sided carpal tunnel surgery and was pleased. He is having similar symptoms on the left and does not wish to get an updated nerve test which I think is fine. Will get him scheduled for his left side at his convenience. FOLLOW UP INSTRUCTIONS: As above OBJECTIVE: Mr. Sylvie Chiu is a pleasant 74 year old in no apparent distress. Gen:There were no vitals taken for this visit. nl development, obese, no deformities ENT: Normocephalic, normal hearing, moist mucosa CV: Pulses:Radial= 2+ and symmetric, capillary refill < 2 secs, no peripheral edema/varicosities Skin: no rash, bruising or lesions. Good turgor. Psych: cooperative and appropriate, alert and oriented x 3, good mood and affect. Musculoskeletal: Cervical spine has supple range of motion and no tenderness to palpation, Spurling's sign negative. Shoulders and elbows have full range of motion. Negative Tinel's over the cubital tunnel, no subluxation of ulnar nerve at the elbow with flexion. Negative Tinel's over Guyon's canal. Inspection reveals no thenar atrophy. Diminished sensation to light touch in the radial 3 digits. Sensation intact in the ulnar 2 digits with out intrinsic atrophy/weakness. Positive Tinel's at the wrist, positive carpal tunnel compression testing on the left. No locking or catching of the digits. No tenderness to palpation or masses noted in the forearm or hand. 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 Itraconazole AND Prednisone History of anal fissures Obesity APRIL (obstructive sleep apnea) 02/2007 Pain in joint, multiple sites Prostate cancer (HCC) Unspecified essential hypertension Unspecified glaucoma(365.9) Past Surgical History: PAST SURGICAL HISTORY Procedure Laterality Date ANKLE SURGERY HX Left left ankle fracture and piece of metal removed ARTHRP KNE CONDYLEANDPLATU MEDIALANDLAT COMPARTMENTS Right 06/30/2018 Knee replacement, total BRONCHOSCOPY 09/17/2006 COLONOSCOPY 04/2016 MEDIASTINOSCOPY 10/02/2006 histoplasmosis NEUROPLASTY AND/TRANSPOS MEDIAN NRV CARPAL TUNNE Right 11/28/2015 Carpal tunnel decomp PAST SURGICAL HISTORY OF lasik bilat.; 5 ops R eye and now blind R REMOVAL OF ANAL FISSURE ROTATOR CUFF REPAIR Right ROTATOR CUFF REPAIR Left TONSILLECTOMY AND ADENOIDECTOMY VASECTOMY UNI/BI SPX W/POSTOP SEMEN EXAMS Family History: FAMILY HISTORY Problem Relation Age of Onset Colon Cancer Father mgf other (hyperchol) Father other (cva) Father pgf, mgm other (heart dis) Father pgm Prostate Cancer Maternal Grandfather Social History: Social History Tobacco Use Smoking status: Former Packs/day: 1.00 Years: 20.00 Additional pack years: 0.00 Total pack years: 20.00 Types: Cigarettes Smokeless tobacco: Never Tobacco comments: quit over 35 yrs ago Vaping Use Vaping Use: Never used Substance Use Topics Alcohol use: Yes Alcohol/week: 2.0 - 3.0 standard drinks of alcohol Types: 2 - 3 Cans of Beer (12oz) per week Drug use: No Medications: Current Outpatient Medications Medication Sig celecoxib (CELEBREX) 200 mg capsule Take 200 mg by mouth once daily. hydrOXYchloroQUINE (PLAQUENIL) 200 mg tablet Take 1 tablet by mouth once daily. ipratropium-albuterol (DUONEB) 0.5 mg-3 mg(2.5 mg base)/3 mL nebu Inhale 3 mL as instructed four times daily. tamsulosin (FLOMAX) 0.4 mg TAKE 2 CAPSULES BY MOUTH ONCE DAILY 30 MINUTES AFTER A MEAL furosemide (LASIX) 20 mg tablet Take 1 tablet by mouth once daily. acetaminophen (TYLENOL) 325 mg tablet Take 650 mg by mouth as needed. ALBUTEROL INHALATION Inhale 1 Inhalation as instructed as needed. hot humid weather lisinopril-hydrochlorothiazide (PRINZIDE,ZESTORETIC) 20-12.5 mg per tablet Take 1 tablet by mouth once daily. modafinil(PROVIGIL 200 MG TAB) Take one(1) tablet daily in the morning. pantoprazole (PROTONIX) 40 mg ORAL TbEC Take one(1) tablet daily. iv contrast (will be provided with radiology test) MRI (more content not included)... [facility] 03-29-2024 History of Presen t illness Narrative Lee Wayne MD Department of Orthopaedics Orthopaedics [address] [place] [id number] Dept: [phone] March 29, 2024 CHIEF COMPLAINT: New and Pain of the Left Hand HPI Patient here today for left hand/wrist pain. 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 He is right hand dominant. Ultrasound completed on 02/01/2024. ASSESSMENT: G56.02 Carpal tunnel syndrome of left wrist (primary encounter diagnosis) PLAN: We reviewed the risks, benefits, alternatives and potential complications involving both operative and nonoperative treatment. A number of years ago, he successfully underwent right-sided carpal tunnel surgery and was pleased. He is having similar symptoms on the left and does not wish to get an updated nerve test which I think is fine. Will get him scheduled for his left side at his convenience. FOLLOW UP INSTRUCTIONS: As above OBJECTIVE: Mr. Sylvie Chiu is a pleasant 74 year old in no apparent distress. Gen:There were no vitals taken for this visit. nl development, obese, no deformities ENT: Normocephalic, normal hearing, moist mucosa CV: Pulses:Radial= 2+ and symmetric, capillary refill < 2 secs, no peripheral edema/varicosities Skin: no rash, bruising or lesions. Good turgor. Psych: cooperative and appropriate, alert and oriented x 3, good mood and affect. Musculoskeletal: Cervical spine has supple range of motion and no tenderness to palpation, Spurling's sign negative. Shoulders and elbows have full range of motion. Negative Tinel's over the cubital tunnel, no subluxation of ulnar nerve at the elbow with flexion. Negative Tinel's over Guyon's canal. Inspection reveals no thenar atrophy. Diminished sensation to light touch in the radial 3 digits. Sensation intact in the ulnar 2 digits with out intrinsic atrophy/weakness. Positive Tinel's at the wrist, positive carpal tunnel compression testing on the left. No locking or catching of the digits. No tenderness to palpation or masses noted in the forearm or hand. 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 Itraconazole & Prednisone History of anal fissures Obesity APRIL (obstructive sleep apnea) 02/2007 Pain in joint, multiple sites Prostate cancer (HCC) Unspecified essential hypertension Unspecified glaucoma(365.9) Past Surgical History: PAST SURGICAL HISTORY Procedure Laterality Date ANKLE SURGERY HX Left left ankle fracture and piece of metal removed ARTHRP KNE CONDYLE&PLATU MEDIAL&LAT COMPARTMENTS Right 06/30/2018 Knee replacement, total BRONCHOSCOPY 09/17/2006 COLONOSCOPY 04/2016 MEDIASTINOSCOPY 10/02/2006 histoplasmosis NEUROPLASTY &/TRANSPOS MEDIAN NRV CARPAL TUNNE Right 11/28/2015 Carpal tunnel decomp PAST SURGICAL HISTORY OF lasik bilat.; 5 ops R eye and now blind R REMOVAL OF ANAL FISSURE ROTATOR CUFF REPAIR Right ROTATOR CUFF REPAIR Left TONSILLECTOMY & ADENOIDECTOMY <AGE 14 VASECTOMY UNI/BI SPX W/POSTOP SEMEN EXAMS Family History: FAMILY HISTORY Problem Relation Age of Onset Colon Cancer Father mgf other (hyperchol) Father other (cva) Father pgf, mgm other (heart dis) Father pgm Prostate Cancer Maternal Grandfather Social History: Social History Tobacco Use Smoking status: Former Packs/day: 1.00 Years: 20.00 Additional pack years: 0.00 Total pack years: 20.00 Types: Cigarettes Smokeless tobacco: Never Tobacco comments: quit over 35 yrs ago Vaping Use Vaping Use: Never used Substance Use Topics Alcohol use: Yes Alcohol/week: 2.0 - 3.0 standard drinks of alcohol Types: 2 - 3 Cans of Beer (12oz) per week Drug use: No Medications: Current Outpatient Medications Medication Sig celecoxib (CELEBREX) 200 mg capsule Take 200 mg by mouth once daily. hydrOXYchloroQUINE (PLAQUENIL) 200 mg tablet Take 1 tablet by mouth once daily. ipratropium-albuterol (DUONEB) 0.5 mg-3 mg(2.5 mg base)/3 mL nebu Inhale 3 mL as instructed four times daily. tamsulosin (FLOMAX) 0.4 mg TAKE 2 CAPSULES BY MOUTH ONCE DAILY 30 MINUTES AFTER A MEAL furosemide (LASIX) 20 mg tablet Take 1 tablet by mouth once daily. acetaminophen (TYLENOL) 325 mg tablet Take 650 mg by mouth as needed. ALBUTEROL INHALATION Inhale 1 Inhalation as instructed as needed. hot humid weather lisinopril-hydrochlorothiazide (PRINZIDE,ZESTORETIC) 20-12.5 mg per tablet Take 1 tablet by mouth once daily. modafinil(PROVIGIL 200 MG TAB) Take one(1) tablet daily in the morning. pantoprazole (PROTONIX) 40 mg ORAL TbEC Take one(1) tablet daily. iv contrast (will be provided with radiology test) MRI Prostate Inject, intravenously, once for 1 dose. No IV access, insert saline lock prior to the beginning of sedation, infusion, injection of imaging exam. Discontinue saline lock post exam. If Pt. has a central line or IVAD, may access for administration according to line specific nursing protocol. Once exam is complete flush line and de-access according to line specific nursing protocol in the MR contrast administration guidelines link. BIPAP ASV Adaptive Servo-Ventilation (ASV) with end-expiratory pressure (EEP) of 9 cmH2O and variable pressure support of 3-10 cmH2O. mask (pt pref), chin strap, heated tubing & humidity, filters. Lifetime supplies. APRIL: G47.33. BIPAP Please supply patient with Full face mask, Santana Rose VIP [id number]. No current facility-administered medications for this visit. Allergies: Patient has no known allergies. ROS: General (negative for fatigue, malaise, weight loss/gain) HEENT (negative for headache, earache, recent vision changes, sinus pain, sore throat) Respiratory (no recent shortness of breath, hemoptysis) CV (negative for chest tightness, palpitations) Musculoskeletal (see HPI) Psych (no depression, anxiety) Lee Wayne MD documented in this encounter [facility] 03-29-2024 History of Presen t illness Narrative Radiology Service Progress Note PATIENT NAME: Sylvie Chiu MRN: [id number] DATE OF SERVICE: March 29, 2024 TIME: 10:11 AM PATIENT IDENTITY VERIFICATION COMPLETED USING TWO (2) IDENTIFIERS: Name and Date of confirmed by patient verbally. FALL SCREENING: Has the patient had 2 falls in the last year or 1 fall with injury or currently using an Ambulatory Assistive Device (Walker, Cane, Wheelchair, Crutches, etc.)? No PATIENT GENDER DATA: Male PATIENT RELEVANT IMPLANT DATA REVIEWED: Not Applicable PATIENT PRESENTS WITH AN IMPLANTABLE OR ATTACHED USER INTERFACE DESIGNER: No RADIOLOGY DEPARTMENT: General X-ray: Exam(s) Completed: Upper Extremity X-Ray(s): Wrist, left PERIPHERAL IV DATA: Not applicable SIGNED BY: Geno Christina March 29, 2024 10:11 AM documented in this encounter [facility] 03-29-2024 Note HNO ID: [id number] Author: AMISHA GREEN Tech Service: ? Author Type: Electric Fork Operator Type: Progress Notes Filed: 03/29/2024 10:12 Note Text: Radiology Service Progress Note PATIENT NAME: Sylvie Chiu MRN: [id number] DATE OF SERVICE: March 29, 2024 TIME: 10:11 AM PATIENT IDENTITY VERIFICATION COMPLETED USING TWO (2) IDENTIFIERS: Name and Date of confirmed by patient verbally. FALL SCREENING: Has the patient had 2 falls in the last year or 1 fall with injury or currently using an Ambulatory Assistive Device (Walker, Cane, Wheelchair, Crutches, etc.)? No PATIENT GENDER DATA: Male PATIENT RELEVANT IMPLANT DATA REVIEWED: Not Applicable PATIENT PRESENTS WITH AN IMPLANTABLE OR ATTACHED USER INTERFACE DESIGNER: No RADIOLOGY DEPARTMENT: General X-ray: Exam(s) Completed: Upper Extremity X-Ray(s): Wrist, left PERIPHERAL IV DATA: Not applicable SIGNED BY: Geno Christina March 29, 2024 10:11 AM [facility] 03-02-2024 History of Presen t illness Narrative Radiology Service Progress Note PATIENT NAME: Sylvie Chiu MRN: [id number] DATE OF SERVICE: March 02, 2024 TIME: 3:48 PM PATIENT IDENTITY VERIFICATION COMPLETED USING TWO (2) IDENTIFIERS: Name and Date of confirmed by patient verbally. FALL SCREENING: Has the patient had 2 falls in the last year or 1 fall with injury or currently using an Ambulatory Assistive Device (Walker, Cane, Wheelchair, Crutches, etc.)? No PATIENT GENDER DATA: Male PATIENT RELEVANT IMPLANT DATA REVIEWED: Not Applicable PATIENT PRESENTS WITH AN IMPLANTABLE OR ATTACHED USER INTERFACE DESIGNER: No RADIOLOGY DEPARTMENT: General X-ray: Exam(s) Completed: Spine X-Ray(s): Thoracic PERIPHERAL IV DATA: Not applicable SIGNED BY: PHAN Huang) March 02, 2024 3:48 PM documented in this encounter [facility] 02-19-2024 Note HNO ID: [id number] Author: SELWYN MICHELLE MD Service: ? Author Type: Physician Type: Progress Notes Filed: 02/19/2024 15:01 Note Text: HISTORY: Sylvie Chiu is a 73 year old man with high-intermediate risk prostate cancer, [id number], Stage IVB, GG2, clinical Stage IIB [Samantha 3+4=7 (1 core), Samantha 3+3=6 (9 cores) (10/13 cores+); prostate MRI - enlarged pelvic - concern for inguinal LN/bone metastasis. Has had dysuria and incomplete bladder emptying and was placed on Flomax 0.4 mg which he takes twice daily. Has been having this recently. He has pressure and discomfort in the perineum. Presents today for cystoscopy to rule out urethral stricture. He reports intermittent pain from radiation. Treated with: - Leuprolide 22.5 mg inj 09/09/22, 12/09/22 - Radiation therapy 11/06/22 - 12/15/22 [7000 cGy/6600 cGy/5040 cGy/28 fx to prostate/SVs/pelvic lymph nodes] Decipher test high-risk - 0.98 PSMA-PET negative for bone/LN metastasis PATHOLOGY: FINAL DIAGNOSIS A. Prostate, left base, biopsy: - Benign fibromuscular stroma; no prostatic glands are present. B. Prostate, left mid, biopsy: - Prostatic adenocarcinoma, Bruce score 3+3=6, grade group 1, involving 1 of 1 core (4 mm, 65%). C. Prostate, left apex, biopsy: - Prostatic adenocarcinoma, Samantha score 3+3=6, grade group 1, involving 1 of 1 core (1 mm, 25%). D. Prostate, left lateral base, biopsy: - Prostatic adenocarcinoma, Samantha score 3+4=7, grade group 2, involving 1 of 1 core (6 mm, 85%). - Bruce pattern 4 comprises approximately 10% of the carcinoma. - Small gland cribriform morphology is identified. - Atypical intraductal proliferation (AIP) is present. E. Prostate, left lateral mid, biopsy: - Prostatic adenocarcinoma, Samantha score 3+3=6, grade group 1, involving 1 of 1 core (2 mm, 50%) F. Prostate, left lateral apex, biopsy: - Prostatic adenocarcinoma, Bruce score 3+3=6, grade group 1, involving 1 of 1 core (1 mm, 30%). G. Prostate, right base, biopsy: - Benign prostate tissue. H. Prostate, right mid, biopsy: - Prostatic adenocarcinoma, Samantha score 3+3=6, grade group 1, involving 2 of 2 cores (1 mm, 30%; 1 mm, 20%) I. Prostate, right apex, biopsy: - Prostatic adenocarcinoma, Samantha score 3+3=6, grade group 1, involving 1 of 1 core (3 mm, 50%). J. Prostate, right lateral base, biopsy: - Benign prostate tissue. K. Prostate, right lateral mid, biopsy: - Prostatic adenocarcinoma, Bruce score 3+3=6, grade group 1, involving 1 of 1 core (1 mm, 10%). L.Prostate, right lateral apex, biopsy: - Prostatic adenocarcinoma, Samantha score 3+3=6, grade group 1, involving 1 of 1 core (2 mm, 30%). Prostate Cancer Biopsy Summary Number of cores examined: 13 Number of cores positive: 10 Highest Grade Group: 2 Highest % of core involvement: 85 % Cribriform pattern 4: Present, small gland Intraductal carcinoma: Suspicious Stripping Shovel Oiler tumor block to use for additional studies: D1 PSA (ng/mL) Date Value 12/10/2023 0.07 06/11/2023 0.02 03/09/2023 0.03 12/05/2022 0.41 10/18/2021 6.29 PSA Screening (NG/ML) Date Value 12/12/2008 2.4 MRI pelvis 01/12/2024 IMPRESSION: 1. Grossly unremarkable appearance of the urinary bladder. No gross mass or stricture is noted. 2. No gross urethral stricture is noted. If clinically warranted, consider further evaluation with retrograde urethrogram. NM PET/CT 08/07/2022 IMPRESSION: Head and neck: - No PSMA-expressing lesions suspicious for metastases. Chest: - No PSMA-expressing lesions suspicious for metastases. Abdomens and Pelvis: - PSMA-expressing lesions in the prostate is consistent with known neoplasm. - Nonspecific bilateral inguinal lymph nodes. Bones and soft tissues: - No PSMA-expressing lesions suspicious for metastases. - Non PSMA-expressing sclerotic lesions in the bone, follow-up is recommended. Damaris's HOP NOTE/ UNIVERSAL PROTOCOL/ SAFETY CHECKLIST Sign In History and Physical Exam reviewed and is unchanged. Primary Diagnosis: Prostate cancer Sign in Communication: Completed. Time Out: Immediately prior to procedure, Team confirms the correct patient, correct procedure, cystoscopy, correct site and site marking, correct position (if applicable). Sign Out: Sign out discussion: Completed. Antibiotic(s) given immediately prior to procedure: bactrim Details of procedure: as below Cystoscopy - See below Urethra - no stricture Prostate: Moderate lateral lobes VN: open Urothelium: Normal, no evidence of tumor, CIS stone, foreign body, diverticuli, etc. Trabeculation: moderate Inflammation: mild Ureteral Orifices: Normal, clear efflux bilaterally Trigone: Normal Preoperative diagnosis: Prostate cancer Postoperative diagnosis: Same Procedure: Flexible cystoscopy Surgeon: Dr. Selwyn Michelle Anesthesia: Lidocaine urojet Procedure: The patient was taken to the cystoscopy suite and fabiola (more content not included)... 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 Has had dysuria and incomplete bladder emptying and was placed on Flomax 0.4 mg which he takes twice daily. Has been having this recently. He has pressure and discomfort in the perineum. Presents today for cystoscopy to rule out urethral stricture. He reports intermittent pain from radiation. Treated with: - Leuprolide 22.5 mg inj 09/09/22, 12/09/22 - Radiation therapy 11/06/22 - 12/15/22 [7000 cGy/6600 cGy/5040 cGy/28 fx to prostate/SVs/pelvic lymph nodes] Decipher test high-risk - 0.98 PSMA-PET negative for bone/LN metastasis PATHOLOGY: FINAL DIAGNOSIS A. Prostate, left base, biopsy: - Benign fibromuscular stroma; no prostatic glands are present. B. Prostate, left mid, biopsy: - Prostatic adenocarcinoma, Bruce score 3+3=6, grade group 1, involving 1 of 1 core (4 mm, 65%). C. Prostate, left apex, biopsy: - Prostatic adenocarcinoma, Bruce score 3+3=6, grade group 1, involving 1 of 1 core (1 mm, 25%). D. Prostate, left lateral base, biopsy: - Prostatic adenocarcinoma, Samantha score 3+4=7, grade group 2, involving 1 of 1 core (6 mm, 85%). - Bruce pattern 4 comprises approximately 10% of the carcinoma. - Small gland cribriform morphology is identified. - Atypical intraductal proliferation (AIP) is present. E. Prostate, left lateral mid, biopsy: - Prostatic adenocarcinoma, Bruce score 3+3=6, grade group 1, involving 1 of 1 core (2 mm, 50%) F. Prostate, left lateral apex, biopsy: - Prostatic adenocarcinoma, Samantha score 3+3=6, grade group 1, involving 1 of 1 core (1 mm, 30%). G. Prostate, right base, biopsy: - Benign prostate tissue. H. Prostate, right mid, biopsy: - Prostatic adenocarcinoma, Samantha score 3+3=6, grade group 1, involving 2 of 2 cores (1 mm, 30%; 1 mm, 20%) I. Prostate, right apex, biopsy: - Prostatic adenocarcinoma, Samantha score 3+3=6, grade group 1, involving 1 of 1 core (3 mm, 50%). J. Prostate, right lateral base, biopsy: - Benign prostate tissue. K. Prostate, right lateral mid, biopsy: - Prostatic adenocarcinoma, Samantha score 3+3=6, grade group 1, involving 1 of 1 core (1 mm, 10%). L.Prostate, right lateral apex, biopsy: - Prostatic adenocarcinoma, Samantha score 3+3=6, grade group 1, involving 1 of 1 core (2 mm, 30%). Prostate Cancer Biopsy Summary Number of cores examined: 13 Number of cores positive: 10 Highest Grade Group: 2 Highest % of core involvement: 85 % Cribriform pattern 4: Present, small gland Intraductal carcinoma: Suspicious Stripping Shovel Oiler tumor block to use for additional studies: D1 PSA (ng/mL) Date Value 12/10/2023 0.07 06/11/2023 0.02 03/09/2023 0.03 12/05/2022 0.41 10/18/2021 6.29 PSA Screening (NG/ML) Date Value 12/12/2008 2.4 MRI pelvis 01/12/2024 IMPRESSION: 1. Grossly unremarkable appearance of the urinary bladder. No gross mass or stricture is noted. 2. No gross urethral stricture is noted. If clinically warranted, consider further evaluation with retrograde urethrogram. NM PET/CT 08/07/2022 IMPRESSION: Head and neck: - No PSMA-expressing lesions suspicious for metastases. Chest: - No PSMA-expressing lesions suspicious for metastases. Abdomens and Pelvis: - PSMA-expressing lesions in the prostate is consistent with known neoplasm. - Nonspecific bilateral inguinal lymph nodes. Bones and soft tissues: - No PSMA-expressing lesions suspicious for metastases. - Non PSMA-expressing sclerotic lesions in the bone, follow-up is recommended. Damaris's HOPS NOTE/ UNIVERSAL PROTOCOL/ SAFETY CHECKLIST Sign In History and Physical Exam reviewed and is unchanged. Primary Diagnosis: Prostate cancer Sign in Communication: Completed. Time Out: Immediately prior to procedure, Team confirms the correct patient, correct procedure, cystoscopy, correct site and site marking, correct position (if applicable). Sign Out: Sign out discussion: Completed. Antibiotic(s) given immediately prior to procedure: bactrim Details of procedure: as below Cystoscopy - See below Urethra - no stricture Prostate: Moderate lateral lobes VN: open Urothelium: Normal, no evidence of tumor, CIS stone, foreign body, diverticuli, etc. Trabeculation: moderate Inflammation: mild Ureteral Orifices: Normal, clear efflux bilaterally Trigone: Normal Preoperative diagnosis: Prostate cancer Postoperative diagnosis: Same Procedure: Flexible cystoscopy Surgeon: Dr. Selwyn Michelle Anesthesia: Lidocaine urojet Procedure: The patient was taken to the cystoscopy suite and placed in the spine position. He was then prepped and draped in the usual manner. Lidocaine gel was placed per urethra for local anesthesia. Cystoscopy was then performed using a flexible cystoscope. Sterile technique was maintained throughout. Please refer to above for specific findings during this part of the procedure. After carefully and atraumatically inspecting the urethra, prostate, VN, bladder, and UO's, the cystoscope was removed. The patient tolerated the procedure well and there were no complications. He was take for recovery in good condition. Findings: see above Complications: None EBL: None Disposition: Cysto did not show stricture. Had moderate lateral lobes Follow up with radiation oncology or myself with PSA prior in 6mo By signing my name below, I, Milady Ordaz, attest that this documentation has been prepared under the direction and in the presence of Dr. Michelle Electronically signed, Gold Sawyer I agree with the Chief Complaint, ROS, and Past Histories independently gathered by the clinical aviation support equipment repairer and the remaining scribed note accurately describes my personal service to the patient. Dr. Selwyn Michelle MD documented in this encounter [facility] 02-19-2024 Nurse Note UNIVERSAL PROTOCOL / SAFETY CHECKLIST Procedure to be Performed: cystoscopy Sign In: A Moment of CARE was completed. Personnel directly involved with the procedure wore the appropriate PPE (Personal Protective Equipment). Special equipment: cystoscope Patient/Surrogate Stated/Verified: PATIENT VERIFIED(optional for EMERGENT procedures): Patient name, Date of , Relevant allergies, and The intended procedure Time Out Communication: Intended patient and procedure match the source documents. Consent documented and matches the intended procedure. Relevant labs, photos, and/or imaging studies have been reviewed. Correct side/site marked and visible. Medications required for procedure verified. Fire risk assessed and interventions discussed. No implant(s) inserted. Sign Out: SIGN OUT (optional for EMERGENT procedures): No specimen collected. All instruments, equipment, possible retained foreign bodies accounted for. Post-procedure follow-up management communicated and Plan of Care Visit completed when applicable. Ruth Quiñones MA PRE PROCEDURE ASSESSMENT- Cysto Procedure Indication: Cystoscopy Latex Allergy: No Allergies reviewed and updated. Yes Pre-Procedure Vital Signs: BP: 144/78 Pulse: 61 Heart valve replacement: No Joint replacement: Yes Back Office UA otained: yes PROCEDURE PREP-Cysto Patient ID with two(2)identifiers verified by: Ruth Quiñones MA Pre-Procedure Antibiotics: Bactrim DS 160mg-800mg orally, given during visit @ 1408 , by Ruth Quiñones MA Patient Prep: Betadine Scrub to perineum and placement of Sterile Drape. COMPLETED Anesthetic Given:10 cc 2% Lidocaine jelly and Administered by MD - see Procedure Physician Note. Ruth Quiñones MA UNIVERSAL PROTOCOL / SAFETY CHECKLIST Procedure to be performed: Cystoscopy Sign in Communication: Completed Time Out: Team Confirms the Correct Patient, Correct Procedure, Correct Site and Site Marking, Correct Position (if applicable). Sign Out Discussion: Completed Ruth Quiñones MA POST PROCEDURE NURSE ASSESSMENT Present along with physician during procedure exam. Ruth Quiñones MA Instruction sheet given and reviewed and patient verbalizes understanding: yes Post Procedure Antibiotic: none Current pain intensity is 0 on a 0-10 pain scale. Ruth Quiñones MA AMBULATORY PATIENT EDUCATION THE FOLLOWING WAS EVALUATED Motivation To Learn: Interested Family/Significant Other Support: Unable to assess - Family not present Cognitive Ability: Alert/Oriented Method of Instruction: Individual instruction Written instruction/Handouts Verbal instruction The Following Influencing Factors Were Barriers To This Education Session: None The Following Physical Limitations Were Barriers To This Education Session: None Instruction Provided To: Patient Staking Technician Present: not applicable Discipline: Nursing Learning Topic: SURVIVAL SKILLS: Complication Prevention Symptom Management Patient Evaluation: Verbalizes understanding: Yes Supplemental Material Given: Written Material Instructed By Ruth Quiñones MA In Department Urology . [facility] 02-19-2024 Nurse Note UNIVERSAL PROTOCOL / SAFETY CHECKLIST Procedure to be Performed: cystoscopy Sign In: A Moment of CARE was completed. Personnel directly involved with the procedure wore the appropriate PPE (Personal Protective Equipment). Special equipment: cystoscope Patient/Surrogate Stated/Verified: PATIENT VERIFIED(optional for EMERGENT procedures): Patient name, Date of , Relevant allergies, and The intended procedure Time Out Communication: Intended patient and procedure match the source documents. Consent documented and matches the intended procedure. Relevant labs, photos, and/or imaging studies have been reviewed. Correct side/site marked and visible. Medications required for procedure verified. Fire risk assessed and interventions discussed. No implant(s) inserted. Sign Out: SIGN OUT (optional for EMERGENT procedures): No specimen collected. All instruments, equipment, possible retained foreign bodies accounted for. Post-procedure follow-up management communicated and Plan of Care Visit completed when applicable. Ruth Quiñones MA PRE PROCEDURE ASSESSMENT- Cysto Procedure Indication: Cystoscopy Latex Allergy: No Allergies reviewed and updated. Yes Pre-Procedure Vital Signs: BP: 144/78 Pulse: 61 Heart valve replacement: No Joint replacement: Yes Back Office UA otained: yes PROCEDURE PREP-Cysto Patient ID with two(2)identifiers verified by: Ruth Quiñones MA Pre-Procedure Antibiotics: Bactrim DS 160mg-800mg orally, given during visit @ 1408 , by Ruth Quiñones MA Patient Prep: Betadine Scrub to perineum and placement of Sterile Drape. COMPLETED Anesthetic Given:10 cc 2% Lidocaine jelly and Administered by MD - see Procedure Physician Note. Ruth Quiñones MA UNIVERSAL PROTOCOL / SAFETY CHECKLIST Procedure to be performed: Cystoscopy Sign in Communication: Completed Time Out: Team Confirms the Correct Patient, Correct Procedure, Correct Site and Site Marking, Correct Position (if applicable). Sign Out Discussion: Completed Ruth Quiñones MA POST PROCEDURE NURSE ASSESSMENT Present along with physician during procedure exam. Ruth Quiñones MA Instruction sheet given and reviewed and patient verbalizes understanding: yes Post Procedure Antibiotic: none Current pain intensity is 0 on a 0-10 pain scale. Ruth Quiñones MA AMBULATORY PATIENT EDUCATION THE FOLLOWING WAS EVALUATED Motivation To Learn: Interested Family/Significant Other Support: Unable to assess - Family not present Cognitive Ability: Alert/Oriented Method of Instruction: Individual instruction Written instruction/Handouts Verbal instruction The Following Influencing Factors Were Barriers To This Education Session: None The Following Physical Limitations Were Barriers To This Education Session: None Instruction Provided To: Patient Staking Technician Present: not applicable Discipline: Nursing Learning Topic: SURVIVAL SKILLS: Complication Prevention Symptom Management Patient Evaluation: Verbalizes understanding: Yes Supplemental Material Given: Written Material Instructed By Ruth Quiñones MA In Department Urology . 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 - For decades, has had pain in the spine, shoulders, hands (entire), hips, L knee and feet. Worse after activity. Worst time of day is the evening. - In , started on HCQ 200mg/day by PCP. - at [facility], reports he's unsure whether HCQ has helped. No recent prednisone. - Morning stiffness x1 hour - Takes celebrex daily for years which helps. Sometimes takes tylenol which helps - With tightness of the wrists and MCPs - Hasn't had an HCQ eye exam. (Blind in one eye for about 20 yrs) 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 Treated with Itraconazole & Prednisone History of anal fissures Obesity APRIL (obstructive sleep apnea) 02/2007 Pain in joint, multiple sites Prostate cancer (HCC) Unspecified essential hypertension Unspecified glaucoma(365.9) PAST SURGICAL HISTORY Procedure Laterality Date ANKLE SURGERY HX Left left ankle fracture and piece of metal removed ARTHRP KNE CONDYLE&PLATU MEDIAL&LAT COMPARTMENTS Right 06/30/2018 Knee replacement, total BRONCHOSCOPY 09/17/2006 COLONOSCOPY 04/2016 MEDIASTINOSCOPY 10/02/2006 histoplasmosis NEUROPLASTY &/TRANSPOS MEDIAN NRV CARPAL TUNNE Right 11/28/2015 Carpal tunnel decomp PAST SURGICAL HISTORY OF lasik bilat.; 5 ops R eye and now blind R REMOVAL OF ANAL FISSURE ROTATOR CUFF REPAIR Right ROTATOR CUFF REPAIR Left TONSILLECTOMY & ADENOIDECTOMY <AGE 14 VASECTOMY UNI/BI SPX W/POSTOP SEMEN EXAMS ALLERGIES No Active Allergies INTERVAL HISTORY He is here for follow up. He is a patient of Dr. Erazo. He is accompanied by his . He stopped celebrex and HCQ after the [facility]. He noticed worsening of his joint symptoms. He was advised to resume HCQ after the US results showed active synovitis. He has concerns about resuming HCQ due to possible side effect of retinal toxicity. He is here for to discuss treatment options. Pain is worst later in the day. Pain worsens after activity. He takes tylenol and celebrex for pain. Sites of pain: hands, generalized aches, pain rated 2-3/10 Joint swelling: hands, knees, feet EMS: stiffness lasts all day and is worse at night No recent infections. Tolerating meds. Answers submitted by the patient for this visit: Review of Systems Rheumatology (Submitted on 02/11/2024) Fever : No Recent unintentional weight change: No Eye pain: Yes Eye redness: Yes Vision Disturbance: Yes Eye Dryness: Yes Nosebleeds: No Sores in your mouth: No Trouble Swallowing: Yes Dry Mouth: No Chest pain: No Leg Swelling: Yes A cough: Yes Blood when you cough: No Shortness of breath: Yes Pain with breathing: Yes Heartburn: No Abdominal pain: Yes Diarrhea: Yes Black tarry stools: No Blood in urine: No Pain or burning with urination: Yes Joint pain or stiffness: Yes Muscle weakness: Yes Muscle aches: Yes Joint swelling: Yes Morning Stiffness in Joints: Yes A rash: No Skin Color Changes: Yes Hair Loss: No Nail Changes: No Headaches: No Numbness: No Memory Loss: Yes Swollen Glands: No Current Outpatient Medications Medication Sig hydrOXYchloroQUINE (PLAQUENIL) 200 mg tablet Take 1 tablet by mouth once daily. ipratropium-albuterol (DUONEB) 0.5 mg-3 mg(2.5 mg base)/3 mL nebu Inhale 3 mL as instructed four times daily. tamsulosin (FLOMAX) 0.4 mg TAKE 2 CAPSULES BY MOUTH ONCE DAILY 30 MINUTES AFTER A MEAL furosemide (LASIX) 20 mg tablet Take 1 tablet by mouth once daily. iv contrast (will be provided with radiology test) MRI Prostate Inject, intravenously, once for 1 dose. No IV access, insert saline lock prior to the beginning of sedation, infusion, injection of imaging exam. Discontinue saline lock post exam. If Pt. has a central line or IVAD, may access for administration according to line specific nursing protocol. Once exam is complete flush line and de-access according to line specific nursing protocol in the MR contrast administration guidelines link. acetaminophen (TYLENOL) 325 mg tablet Take 650 mg by mouth as needed. BIPAP ASV Adaptive Servo-Ventilation (ASV) with end-expiratory pressure (EEP) of 9 cmH2O and variable pressure support of 3-10 cmH2O. mask (pt pref), chin strap, heated tubing & humidity, filters. Lifetime supplies. APRIL: G47.33. ALBUTEROL INHALATION Inhale 1 Inhalation as instructed as needed. hot humid weather lisinopril-hydrochlorothiazide (PRINZIDE,ZESTORETIC) 20-12.5 mg per tablet Take 1 tablet by mouth once daily. modafinil(PROVIGIL 200 MG TAB) Take one(1) tablet daily in the morning. pantoprazole (PROTONIX) 40 mg ORAL TbEC Take one(1) tablet daily. BIPAP Please supply patient with Full face mask, [employer] VIP [phone]. No current facility-administered medications for this visit. FAMILY HISTORY Problem Relation Age of Onset Colon Cancer Father mgf other (hyperchol) Father other (cva) Father pgf, mgm other (heart dis) Father pgm Prostate Cancer Maternal Grandfather SOCIAL HISTORY: Lives in [place] with spouse Tobacco use: None Alcohol use: 2 drinks/week Drug use: None PHYSICAL EXAM: BP 150/74 Pulse (!) 52 Temp 36.6 C (97.8 F) (Oral) Ht 183.4 cm (6' 0.2) Wt (!) 142.9 kg (315 lb) BMI 42.49 kg/m CONSTITUTIONAL: Well-appearing, in NAD. SKIN: No rash. No sclerodactyly, calcinosis, telangiectasias, digital ulcers, or skin thickening. EYES: No scleral icterus or conjunctivitis ENT and Mouth: External ears normal. RESPIRATORY: Normal breath sounds, clear to auscultation. CARDIOVASCULAR: Regular rate and rhythm, no murmurs or rubs EXTREMITIES/LYMPH: No edema bilaterally NEURO: Awake, alert and oriented, antalgic gait MUSCULOSKELETAL: JOINT APPEARANCE: Heberden's nodes present bilaterally. No erythema or warmth of any upper or lower extremity joint. RANGE OF MOTION: Unable to fully close fists bilaterally. SWOLLEN JOINTS/SYNOVITIS: No synovitis of any joint. TENDER JOINTS: None No tenderness to spine Widespread Pain Index: 10 (0-19) Symptoms Severity Scale: 10 (0-12) WPI>7 and SS Scale>5 OR WPI 3-6 and SS Scale >9 consistent with fibromyalgia Labs reviewed and discussed with the patient: Latest Ref Rng 12/25/2023 Iron 41 - 186 ug/dL 64 TIBC 232 - 386 ug/dL 266 Transferrin Saturation 15.0 - 57.0 % 24.1 Ferritin 30.3 - 565.7 ng/mL 381.3 Folate >4.7 ng/mL 6.1 Vitamin B12 232 - 1,245 pg/mL 300 Latest Ref Rng 12/25/2023 Protein, Total 6.3 - 8.0 g/dL 7.0 Albumin 3.9 - 4.9 g/dL 4.8 Calcium 8.5 - 10.2 mg/dL 9.8 Bilirubin, Total 0.2 - 1.3 mg/dL 0.4 Alkaline Phosphatase 38 - 113 U/L 96 AST 14 - 40 U/L 12 (L) ALT 10 - 54 U/L 10 Glucose 74 - 99 mg/dL 97 BUN 9 - 24 mg/dL 18 Creatinine 0.73 - 1.22 mg/dL 0.94 Sodium 136 - 144 mmol/L 140 Potassium 3.7 - 5.1 mmol/L 4.1 Chloride 97 - 105 mmol/L 104 CO2 22 - 30 mmol/L 25 Anion Gap 9 - 18 mmol/L 11 eGFR >=60 mL/min/1.73m 87 WBC 3.70 - 11.00 k/uL 5.16 RBC 4.20 - 6.00 m/uL 4.24 Hemoglobin 13.0 - 17.0 g/dL 12.9 (L) Hematocrit 39.0 - 51.0 % 38.8 (L) MCV 80.0 - 100.0 fL 91.5 MCH 26.0 - 34.0 pg 30.4 MCHC 30.5 - 36.0 g/dL 33.2 RDW-CV 11.5 - 15.0 % 13.3 Platelet Count 150 - 400 k/uL 169 MPV 9.0 - 12.7 fL 10.8 Absolute nRBC <0.01 k/uL <0.01 Latest Ref Rng 12/14/2023 CCP Antibody IgG Qualitative Negative Negative CCP Antibody, IgG <20 Units <15 CRP <0.9 mg/dL <0.3 Rheumatoid Factor <16 IU/mL <10 WSR 0 - 15 mm/hr 13 Latest Ref Rng 07/09/2007 06/22/2009 03/05/2012 11/14/2015 Sm Antibody <1.0 AI <0.2 STARCH TREATING ASSISTANT Antibody <1.0 AI <0.2 SSA Antibody <1.0 AI 0.2 SSB Antibody <1.0 AI 1.0 (H) Centromere Ab <1.0 AI <0.2 Scleroderma Ab, IgG <1.0 AI <0.2 Constance 1 Antibody <1.0 AI <0.2 Ribosomal STARCH TREATING ASSISTANT <1.0 AI <0.2 Chromatin Antibody <1.0 AI 0.4 NELLY Negative Positive ! Negative NELLY Titer Negative 1:40 ! Negative NELLY Pattern Speckled Not applicable for negative result. Rheumatoid Factor <20 IU/mL 3 <7 STUDIES: 01/2024 hand/wrist US: IMPRESSION: Scattered active synovitis in the hands and wrists. No tenosynovitis in the hands or wrists. *Jun xray L-spine- 1. Changes in the distal coccygeal segments as discussed. Along these findings have been present uncertain from the study 2. Degenerative changes *January xray hands- Degenerative changes. No acute abnormality IMPRESSION and PLAN: 1. Inflammatory Arthritis: Hx of prostate cancer previously on leupron. With pain of the shoulders, hands (diffuse hand, not localized to one joint/area), hips, knee and feet which worsens with activity and is worst by the end of the day. Known osteoarthritis of various areas including the hands and spine. Was on HCQ 200mg/day per PCP x1 year without much relief, which reportedly was started for the hands. Of note, he has blindness of one eye (wasn't previously advised about need for monitoring eye exams for HCQ). Active synovitis was noted on 01/2024 US of hands/wrists. -Explained the diagnosis in detail including the natural history of the condition, potential for joint damage with ongoing inflammation. -recommended starting SSZ. I explained that it does not increase risk for infection. Potential side effects discussed including GI upset, bone marrow suppression, and liver toxicity requiring routine lab monitoring. -also briefly discussed MTX and Arava, due to his concern about taking multiple pills per day. Handouts on SSX, MTX, and Arava were given to the patient. -he declined starting SSZ, MTX, and Arava. He would like to discuss resuming HCQ with the eye doctor. States he has an appointment scheduled for 02/2024. I asked that he contact our office if he changes his mind. 2. Generalized osteoarthritis: Hand, knees, spine - Explained diagnosis and he was previously provided written information on condition for review - Advised taking tylenol up to 3000mg/day as needed for pain. Written instructions previously provided as a reference. - taking celebrex as needed 3. General health maintenance: - Continue follow-up with PCP for routine health maintenance and malignancy screening - he was advised to f/u with his pcp for elevated BP Follow-up in 4 months or sooner if needed. Patient was instructed to call if any questions or concerns. Thank you for allowing me to participate in the care of your patient. Francisco Davis APRN.[email or web address] documented in this encounter [facility] 02-02-2024 Telephone encounter Note Called and assisted patient with scheduling appts with Francisco as requested. Mony Weinberg MA [facility] 02-02-2024 Miscellaneous Notes Called and assisted patient with scheduling appts with Francisco as requested. Mony Weinberg MA Patient called and asked if there was something else he can take besides the plaquenil since it effects eyesight. Please advise Spoke with patient. Message relayed. Agrees with plan. States he has regular Opthalmology appointments, verbalizes understanding of Plaquenil eye exam requirements Mony Leiva RN ----- Message from Alex Erazo MD sent at 02/01/2024 5:10 PM EDT ----- Please let him know: - The ultrasound shows scattered areas of active inflammation in various joints including the wrists, left pointer and middle finger knuckles. As such, I'd advise going back on the plaquenil to help calm this down. We can recheck an ultrasound at the next visit after he's been on plaquenil to see if it helps resolve these areas of inflammation. Let me know if any questions. Thanks. documented in this encounter [facility] 02-02-2024 Telephone encounter Note Patient called and asked if there was something else he can take besides the plaquenil since it effects eyesight. Please advise [facility] 02-02-2024 Telephone encounter Note Spoke with patient. Message relayed. Agrees with plan. States he has regular Opthalmology appointments, verbalizes understanding of Plaquenil eye exam requirements Mony Leiva RN [facility] 02-02-2024 Telephone encounter Note ----- Message from Alex Erazo MD sent at 02/01/2024 5:10 PM EDT ----- Please let him know: - The ultrasound shows scattered areas of active inflammation in various joints including the wrists, left pointer and middle finger knuckles. As such, I'd advise going back on the plaquenil to help calm this down. We can recheck an ultrasound at the next visit after he's been on plaquenil to see if it helps resolve these areas of inflammation. Let me know if any questions. Thanks. [facility] 01-29-2024 Note HNO ID: [id number] Author: AMANDA HORTON MA Service: ? Author Type: Composite Bond Worker Type: Progress Notes Filed: 01/29/2024 16:04 Note Text: Post Void Residual done on patient with 0 cc residual volume remaining. MD notified. Amanda Horton MA [facility] 01-29-2024 Note HNO ID: [id number] Author: ?, ?, ? Service: ? Author Type: ? 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 Most recent PSA was 0.07 on 12/10/2023. Follows with radiation oncology. Has had dysuria and incomplete bladder emptying and was placed on Flomax 0.4 mg which he takes twice daily. Has been having this recently. He has pressure and discomfort in the perineum. Treated with: - Leuprolide 22.5 mg inj 09/09/22, 12/09/22 - Radiation therapy 11/06/22 - 12/15/22 [7000 cGy/6600 cGy/5040 cGy/28 fx to prostate/SVs/pelvic lymph nodes] Decipher test high-risk - 0.98 PSMA-PET negative for bone/LN metastasis IPSS- 19 QoL-3 PATHOLOGY: FINAL DIAGNOSIS A. Prostate, left base, biopsy: - Benign fibromuscular stroma; no prostatic glands are present. B. Prostate, left mid, biopsy: - Prostatic adenocarcinoma, Samantha score 3+3=6, grade group 1, involving 1 of 1 core (4 mm, 65%). C. Prostate, left apex, biopsy: - Prostatic adenocarcinoma, Samantha score 3+3=6, grade group 1, involving 1 of 1 core (1 mm, 25%). D. Prostate, left lateral base, biopsy: - Prostatic adenocarcinoma, Samantha score 3+4=7, grade group 2, involving 1 of 1 core (6 mm, 85%). - Bruce pattern 4 comprises approximately 10% of the carcinoma. - Small gland cribriform morphology is identified. - Atypical intraductal proliferation (AIP) is present. E. Prostate, left lateral mid, biopsy: - Prostatic adenocarcinoma, Samantha score 3+3=6, grade group 1, involving 1 of 1 core (2 mm, 50%) F. Prostate, left lateral apex, biopsy: - Prostatic adenocarcinoma, Samantha score 3+3=6, grade group 1, involving 1 of 1 core (1 mm, 30%). G. Prostate, right base, biopsy: - Benign prostate tissue. H. Prostate, right mid, biopsy: - Prostatic adenocarcinoma, Bruce score 3+3=6, grade group 1, involving 2 of 2 cores (1 mm, 30%; 1 mm, 20%) I. Prostate, right apex, biopsy: - Prostatic adenocarcinoma, Bruce score 3+3=6, grade group 1, involving 1 of 1 core (3 mm, 50%). J. Prostate, right lateral base, biopsy: - Benign prostate tissue. K. Prostate, right lateral mid, biopsy: - Prostatic adenocarcinoma, Samantha score 3+3=6, grade group 1, involving 1 of 1 core (1 mm, 10%). L.Prostate, right lateral apex, biopsy: - Prostatic adenocarcinoma, Bruce score 3+3=6, grade group 1, involving 1 of 1 core (2 mm, 30%). Prostate Cancer Biopsy Summary Number of cores examined: 13 Number of cores positive: 10 Highest Grade Group: 2 Highest % of core involvement: 85 % Cribriform pattern 4: Present, small gland Intraductal carcinoma: Suspicious Stripping Shovel Oiler tumor block to use for additional studies: D1 LABS PSA (ng/mL) Date Value 12/10/2023 0.07 06/11/2023 0.02 03/09/2023 0.03 12/05/2022 0.41 06/04/2022 5.50 10/18/2021 6.29 PSA Screening (NG/ML) Date Value 12/12/2008 2.4 Creatinine (mg/dL) Date Value 12/25/2023 0.94 09/25/2023 0.90 03/09/2023 1.04 12/14/2022 1.06 06/04/2022 1.03 10/04/2021 0.90 08/24/2018 0.87 07/01/2018 0.93 06/23/2018 1.00 11/02/2016 1.02 MRI pelvis 01/12/2024 IMPRESSION: 1. Grossly unremarkable appearance of the urinary bladder. No gross mass or stricture is noted. 2. No gross urethral stricture is noted. If clinically warranted, consider further evaluation with retrograde urethrogram. NM PET/CT 08/07/2022 IMPRESSION: Head and neck: - No PSMA-expressing lesions suspicious for metastases. Chest: - No PSMA-expressing lesions suspicious for metastases. Abdomens and Pelvis: - PSMA-expressing lesions in the prostate is consistent with known neoplasm. - Nonspecific bilateral inguinal lymph nodes. Bones and soft tissues: - No PSMA-expressing lesions suspicious for metastases. - Non PSMA-expressing sclerotic lesions in the bone, follow-up is recommended. 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 [facility] 01-29-2024 History of Presen t illness Narrative Post Void Residual done on patient with 0 cc residual volume remaining. MD notified. Amanda Horton MA [facility] FOLLOW-UP PATIENT HISTORY AND PHYSICAL EXAM PATIENT INFO: Sylvie Chiu 73 year old REFERRING M.D.: Hussein Ordonez [id number] [facility] [address] CHIEF COMPLAINT: Prostate cancer, LUTS HISTORY: Sylvie Chiu is a 73 year old man with high-intermediate risk prostate cancer, [id number], Stage IVB, GG2, clinical Stage IIB [Bruce 3+4=7 (1 core), Bruce 3+3=6 (9 cores) (07/10 cores+); prostate MRI - enlarged pelvic - concern for inguinal LN/bone metastasis. Most recent PSA was 0.07 on 12/10/2023. Follows with radiation oncology. Has had dysuria and incomplete bladder emptying and was placed on Flomax 0.4 mg which he takes twice daily. Has been having this recently. He has pressure and discomfort in the perineum. Treated with: - Leuprolide 22.5 mg inj 09/09/22, 12/09/22 - Radiation therapy 11/06/22 - 12/15/22 [7000 cGy/6600 cGy/5040 cGy/28 fx to prostate/SVs/pelvic lymph nodes] Decipher test high-risk - 0.98 PSMA-PET negative for bone/LN metastasis IPSS- 19 QoL-3 PATHOLOGY: FINAL DIAGNOSIS A. Prostate, left base, biopsy: - Benign fibromuscular stroma; no prostatic glands are present. B. Prostate, left mid, biopsy: - Prostatic adenocarcinoma, Bruce score 3+3=6, grade group 1, involving 1 of 1 core (4 mm, 65%). C. Prostate, left apex, biopsy: - Prostatic adenocarcinoma, Bruce score 3+3=6, grade group 1, involving 1 of 1 core (1 mm, 25%). D. Prostate, left lateral base, biopsy: - Prostatic adenocarcinoma, Samantha score 3+4=7, grade group 2, involving 1 of 1 core (6 mm, 85%). - Bruce pattern 4 comprises approximately 10% of the carcinoma. - Small gland cribriform morphology is identified. - Atypical intraductal proliferation (AIP) is present. E. Prostate, left lateral mid, biopsy: - Prostatic adenocarcinoma, Samantha score 3+3=6, grade group 1, involving 1 of 1 core (2 mm, 50%) F. Prostate, left lateral apex, biopsy: - Prostatic adenocarcinoma, Samantha score 3+3=6, grade group 1, involving 1 of 1 core (1 mm, 30%). G. Prostate, right base, biopsy: - Benign prostate tissue. H. Prostate, right mid, biopsy: - Prostatic adenocarcinoma, Bruce score 3+3=6, grade group 1, involving 2 of 2 cores (1 mm, 30%; 1 mm, 20%) I. Prostate, right apex, biopsy: - Prostatic adenocarcinoma, Samantha score 3+3=6, grade group 1, involving 1 of 1 core (3 mm, 50%). J. Prostate, right lateral base, biopsy: - Benign prostate tissue. K. Prostate, right lateral mid, biopsy: - Prostatic adenocarcinoma, Samantha score 3+3=6, grade group 1, involving 1 of 1 core (1 mm, 10%). L.Prostate, right lateral apex, biopsy: - Prostatic adenocarcinoma, Bruce score 3+3=6, grade group 1, involving 1 of 1 core (2 mm, 30%). Prostate Cancer Biopsy Summary Number of cores examined: 13 Number of cores positive: 10 Highest Grade Group: 2 Highest % of core involvement: 85 % Cribriform pattern 4: Present, small gland Intraductal carcinoma: Suspicious Stripping Shovel Oiler tumor block to use for additional studies: D1 LABS PSA (ng/mL) Date Value 12/10/2023 0.07 06/11/2023 0.02 03/09/2023 0.03 12/05/2022 0.41 06/04/2022 5.50 10/18/2021 6.29 PSA Screening (NG/ML) Date Value 12/12/2008 2.4 Creatinine (mg/dL) Date Value 12/25/2023 0.94 09/25/2023 0.90 03/09/2023 1.04 12/14/2022 1.06 06/04/2022 1.03 10/04/2021 0.90 08/24/2018 0.87 07/01/2018 0.93 06/23/2018 1.00 11/02/2016 1.02 MRI pelvis 01/12/2024 IMPRESSION: 1. Grossly unremarkable appearance of the urinary bladder. No gross mass or stricture is noted. 2. No gross urethral stricture is noted. If clinically warranted, consider further evaluation with retrograde urethrogram. NM PET/CT 08/07/2022 IMPRESSION: Head and neck: - No PSMA-expressing lesions suspicious for metastases. Chest: - No PSMA-expressing lesions suspicious for metastases. Abdomens and Pelvis: - PSMA-expressing lesions in the prostate is consistent with known neoplasm. - Nonspecific bilateral inguinal lymph nodes. Bones and soft tissues: - No PSMA-expressing lesions suspicious for metastases. - Non PSMA-expressing sclerotic lesions in the bone, follow-up is recommended. 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 Treated with Itraconazole & Prednisone History of anal fissures Obesity APRIL (obstructive sleep apnea) 02/2007 Pain in joint, multiple sites Prostate cancer (HCC) Unspecified essential hypertension Unspecified glaucoma(365.9) PAST SURGICAL HISTORY Procedure Laterality Date ANKLE SURGERY HX Left left ankle fracture and piece of metal removed ARTHRP KNE CONDYLE&PLATU MEDIAL&LAT COMPARTMENTS Right 06/30/2018 Knee replacement, total BRONCHOSCOPY 09/17/2006 COLONOSCOPY 04/2016 MEDIASTINOSCOPY 10/02/2006 histoplasmosis NEUROPLASTY &/TRANSPOS MEDIAN NRV CARPAL TUNNE Right 11/28/2015 Carpal tunnel decomp PAST SURGICAL HISTORY OF lasik bilat.; 5 ops R eye and now blind R REMOVAL OF ANAL FISSURE ROTATOR CUFF REPAIR Right ROTATOR CUFF REPAIR Left TONSILLECTOMY & ADENOIDECTOMY <AGE 14 VASECTOMY UNI/BI SPX W/POSTOP SEMEN EXAMS Social History Tobacco Use Smoking status: Former Packs/day: 1.00 Years: 20.00 Additional pack years: 0.00 Total pack years: 20.00 Types: Cigarettes Smokeless tobacco: Never Tobacco comments: quit over 35 yrs ago Substance Use Topics Alcohol use: Yes Alcohol/week: 2.0 - 3.0 standard drinks of alcohol Types: 2 - 3 Cans of Beer (12oz) per week Drug use: No REVIEW OF SYSTEMS: CONSTITUTIONAL: fatigue, weakness EYES: Negative for redness, blurry vision, double vision or loss of vision CARDIOVASCULAR: Negative for chest pain. RESPIRATORY: SOB GI: abdominal pain MUSCULOSKELETAL: back pain, joint pain, joint swelling SKIN: color change in hands and feet PSYCH: Negative for sleep disturbance, mood disorder and recent psychosocial stressors. ALLERGY/IMMUNOLOGIC: Amoxicillin All other reviewed and negative other than HPI. PHYSICAL EXAM: constitutional: appears healthy in no acute distress cardiovascular: appears well perfused, good color respiratory: normal respiratory motion gi: abdomen soft, non-tender without masses, hernia or organomegaly skin: no rashes or bruises noted. Extremities: Extremities normal. No deformities, edema, or skin discoloration. Neuro: Gait normal. Sensation grossly intact. PVR- 0 cc IMPRESSION: Sylvie Chiu is a 73 year old man with high-intermediate risk prostate cancer, [id number], Stage IVB, GG2, clinical Stage IIB [Bruce 3+4=7 (1 core), Bruce 3+3=6 (9 cores) (07/10 cores+); prostate MRI - enlarged pelvic - concern for inguinal LN/bone metastasis. Most recent PSA was 0.07 on 12/10/2023. Follows with radiation oncology. Treated with Leuprolide 22.5 mg inj 09/09/22, 12/09/22 and radiation therapy 11/06/22 - 12/15/22. Has had dysuria and incomplete bladder emptying and was placed on Flomax 0.4 mg which he takes twice daily. Has been having this recently. He has pressure and discomfort in the perineum. Discussed the potential for radiation to cause some of the scar tissue which may be contributing to his symptoms. Discussed cystoscopy to assess further. Could consider referral to reconstructive urology in the future. In summary, we will start with a cystoscopy to rule out urethral stricture disease. Based on the results we will determine if anything further needs to be done. PLAN: Will plan for office cystoscopy By signing my name below, I, Milady Ordaz, attest that this documentation has been prepared under the direction and in the presence of Dr. Viviana Spiveyally signed, Gold Sawyer I agree with the Chief Complaint, ROS, and Past Histories independently gathered by the clinical aviation support equipment repairer and the remaining scribed note accurately describes my personal service to the patient. Dr. Selwyn Michelle MD documented in this encounter [facility] 01-12-2024 Miscellaneous Notes Called patient back left due to no number listed for his . Orders placed by Dr. Ordonez lab was called by [facility] made aware orders entered Patients is calling stating that patient is at [facility] right now getting an MRI and she is asking if Dr Ordonez can please put in an order for a urine test because patient is having a lot of pain and burning when urinating. documented in this encounter [facility] 01-12-2024 History of Presen t illness Narrative Radiology Service Progress Note DATE OF SERVICE: January 12, 2024 TIME: 9:31 AM PATIENT WEIGHT: 320LBS PATIENT IDENTITY VERIFICATION COMPLETED USING TWO (2) STANDARD IDENTIFIERS: Name and Date of confirmed by patient verbally. FALL SCREENING: Has the patient had 2 falls in the last year or 1 fall with injury or currently using an Ambulatory Assistive Device (Walker, Cane, Wheelchair, Crutches, etc.)? No PATIENT GENDER DATA: Male ALLERGIES: Reviewed and unchanged CONTRAST ALLERGY: No EXAM: MRI - CONTRAST TYPE: GROUP II IV SITE: Ambulatory: A peripheral IV was started in the Right antecubital site with a Angio cath: 22 gauge. IV SITE APPEARANCE: Clean,Dry and Intact SIGNATURE: Rashi Barron RN PATIENT NAME: Sylvie Chiu DATE: January 12, 2024 TIME: 9:31 AM Radiology Service Progress Note PATIENT NAME: Sylvie Chiu DATE OF SERVICE: January 12, 2024 TIME: 10:21 AM PATIENT IDENTITY VERIFICATION COMPLETED USING TWO (2) IDENTIFIERS: Name and Date of confirmed by patient verbally. FALL SCREENING: Has the patient had 2 falls in the last year or 1 fall with injury or currently using an Ambulatory Assistive Device (Walker, Cane, Wheelchair, Crutches, etc.)? No PATIENT GENDER DATA: Male PATIENT RELEVANT IMPLANT DATA REVIEWED: Yes PATIENT PRESENTS WITH AN IMPLANTABLE OR ATTACHED USER INTERFACE DESIGNER: No RADIOLOGY DEPARTMENT: MR; Exam(s) Completed: Lower MSK: Pelvis, bilateral Soft tissue pelvis PERIPHERAL IV DATA: Not applicable SIGNED BY: RT Shahram(Eyal) January 12, 2024 10:21 AM documented in this encounter [facility] 12-17-2023 Nurse Note Images from the original note were not included. Radiation Therapy - Nursing Note (Follow-up) PATIENT NAME: Sylvie Chiu PATIENT December 17, 2023 [facility] FACILITY/LOCATION: [place] Reason for visit: Follow up. Subjective Data I am having a lot of trouble with bowels and bladder. I have pelvic pain which has intensified since since my last visit here. Additional Data Do you want to see a Certified Nurse Operating Room? No Difficulty performing or completing routine daily living activities: No Nursing Assessment Fatigue: moderate; causing difficulty performing some activities Appetite: good Weight Gain/Loss: Yes Last 6 Encounter Wt Readings: Date: Wt: 12/17/2023 145.1 kg (319 lb 14.2 oz) 12/14/2023 146.1 kg (322 lb) 09/25/2023 143.8 kg (317 lb) 06/15/2023 143.8 kg (317 lb) 03/12/2023 139.4 kg (307 lb 6.4 oz) 01/12/2023 145.8 kg (321 lb 6.4 oz) Bowel Function: small soft frequent and urgent and diarrhea 3-4 times a day no bleeding last colonoscopy age 60 and + for polyps Bone Pain: moderate pain: pain or analgesics interfering with function, but not interfering with activities of daily living Focused Assessment PROSTATE - MALE PELVIS: Rectal bleeding: No. Rectal pain: No. Bladder function: urgency, frequency, incomplete emptying. Urinary frequency (D/N): 10 + times /1. Flomax 1-2 every am will get pelvic pain and pressure when he has to urinate of have a bm. Has urgency, hesitancy, double voids and a weak stream PSA lab completed 12-10-23 SIGNED by: Ros Cheng, RN documented in this encounter [facility] 12-17-2023 History of Presen t illness Narrative Images from the original note were not included. Radiation Oncology - Follow Up Note PATIENT NAME: Sylvie Chiu PATIENT DIAGNOSIS: 73 year old man with high-intermediate risk prostate cancer, [id number], GG2, clinical Stage IIB, iPSA 5.5 [Bruce 3+4=7 (1 core), Bruce 3+3=6 (9 cores) (/ cores+); prostate MRI - enlarged pelvic - concern for inguinal LN/bone metastasis, high-risk Decipher test - 0.98; PSMA-PET negative for bone/LN metastasis], s/p: Leuprolide 22.5 mg inj 09/09/22, 12/09/22 Radiation therapy 11/06/22 - 12/15/22 [7000 cGy/6600 cGy/5040 cGy/28 fx to prostate/SVs/pelvic lymph nodes] INTERVAL HISTORY: Mr. Chiu presents for routine follow-up approximately 1 year after the completion of radiation therapy. He went to the emergency room on 12/14/2022 due to shortness of breath and leg swelling. CTA chest was negative for pulmonary embolism however the study was limited secondary to suboptimal contrast bolus. Ultrasound showed superficial thrombophlebitis but no DVT in his lower extremities Mr. Chiu has a history of BPH managed with tamsulosin. He is noted to have an elevated PSA of 6.29 ng/mL on 10/18/2021. Repeat PSA on 06/04/2022 was 5.5 ng/mL. No prostate nodularity was present on MANJU. Prostate biopsy on 05/08/22 showed adenocarcinoma, Bruce 3+4=7 (1 core), Samantah 3+3=6 (9 cores) (10/13 cores+). CT of the pelvis and bone scan on 06/09/22 showed no metastatic disease. MRI showed evidence of bone metastasis (right femoral neck, right iliac, right posterior acetabulum), enlarged pelvic and bilateral inguinal lymph nodes, and disease at the left peripheral zone (PIRADS 5) bulging the capsule, compressing the adjacent neurovascular bundle. Decipher testing showed a high-risk score (below). PSMA-PET/CT on 08/07/22 showed no evidence of bone or lymph node metastasis. PSMA-expression lesions were noted in the prostate consistent with the known prostate cancer. He started Lupron on 09/09/22 and completed radiation therapy on 12/15/22. He met with Dr. Alex Erazo (rheumatology on 12/14/23); felt not to have rheumatoid arthritis, but to have OA. He finished radiation on 12/15/22 PSA HISTORY: PSA (ng/mL) Date Value 12/10/2023 0.07 06/11/2023 0.02 03/09/2023 0.03 12/05/2022 0.41 10/18/2021 6.29 PSA Screening (NG/ML) Date Value 12/12/2008 2.4 ALLERGIES Allergen Reactions Amoxicillin Rash, Shortness of Breath ipratropium-albuterol (DUONEB) 0.5 mg-3 mg(2.5 mg base)/3 mL nebu Inhale 3 mL as instructed four times daily. tamsulosin (FLOMAX) 0.4 mg TAKE 2 CAPSULES BY MOUTH ONCE DAILY 30 MINUTES AFTER A MEAL furosemide (LASIX) 20 mg tablet Take 1 tablet by mouth once daily. celecoxib (CELEBREX) 200 mg capsule Take 200 mg by mouth twice daily. iv contrast (will be provided with radiology test) MRI Prostate Inject, intravenously, once for 1 dose. No IV access, insert saline lock prior to the beginning of sedation, infusion, injection of imaging exam. Discontinue saline lock post exam. If Pt. has a central line or IVAD, may access for administration according to line specific nursing protocol. Once exam is complete flush line and de-access according to line specific nursing protocol in the MR contrast administration guidelines link. acetaminophen (TYLENOL) 325 mg tablet Take 650 mg by mouth as needed. BIPAP ASV Adaptive Servo-Ventilation (ASV) with end-expiratory pressure (EEP) of 9 cmH2O and variable pressure support of 3-10 cmH2O. mask (pt pref), chin strap, heated tubing & humidity, filters. Lifetime supplies. APRIL: G47.33. ALBUTEROL INHALATION Inhale 1 Inhalation as instructed as needed. hot humid weather lisinopril-hydrochlorothiazide (PRINZIDE,ZESTORETIC) 20-12.5 mg per tablet Take 1 tablet by mouth once daily. modafinil(PROVIGIL 200 MG TAB) Take one(1) tablet daily in the morning. pantoprazole (PROTONIX) 40 mg ORAL TbEC Take one(1) tablet daily. BIPAP Please supply patient with Full face mask, FusionOps VIP [id number]. REVIEW OF SYSTEMS: Arthritic pain Pelvic pressure pain when he has to urinate D/N = 10+/1 (4 am), on diuretics Difficulty starting stream Pain starting voids Weak stream Flomax 1-2x/day. Never feels he fully empties his bladder. Hematuria: none Dysuria: none Incontinence: none Urgency: none Catheter use: none - AUA Questionnaire (symptoms within the past 1 month) Incomplete emptyin (almost always) Frequency (within 2 hours): 5 (almost always) Intermittency: 5 (almost always) Urgency: 5 (almost always) Weak stream: 5 (almost always) Strainin (more than half the time) Nocturia: 1x per night - Total AUA Score: 30 QOL due to urinary symptoms: terrible Bowel movement frequency: 3-4/day, soft/small/urgent/diarrhea Last colonoscopy: last colonoscopy was when he was 62. Androgen deprivation: Previously treated with Lupron, but not receiving at present time. PHYSICAL EXAM: There were no vitals taken for this visit. KPS: 70 General Appearance: Alert and oriented. No acute distress. Rectal exam is deferred. ASSESSMENT/PLAN: 73 year old man with high-intermediate risk prostate cancer, [id number], GG2, clinical Stage IIB, iPSA 5.5 [Bruce 3+4=7 (1 core), Bruce 3+3=6 (9 cores) (10/13 cores+); prostate MRI - enlarged pelvic - concern for inguinal LN/bone metastasis, high-risk Decipher test - 0.98; PSMA-PET negative for bone/LN metastasis], s/p: Leuprolide 22.5 mg inj 09/09/22, 12/09/22 Radiation therapy 11/06/22 - 12/15/22 [7000 cGy/6600 cGy/5040 cGy/28 fx to prostate/SVs/pelvic lymph nodes] No evidence of biochemical recurrence. Describes symptoms of urethral stricture; perhaps chronic radiation proctitis. I will arrange for consultation with urology at [place], gastroenterology ([facility] in [place]) and MRI pelvis ([place]; I will call with results). I will see him again in 6 months with a PSA level. I spent 15 minutes in the visit in counseling / coordination of care. Signed by: Hussein Ordonez MD cc: Rickie Agosto MD documented in this encounter [facility] 12-15-2023 Miscellaneous Notes Patient has been notified of message below and verbalized understanding. Mony Weinberg MA ----- Message from Alex Erazo MD sent at 12/15/2023 12:35 PM EDT ----- Please call him and let him know: It was a pleasure meeting you in the rheumatology clinic yesterday! The lab results are unremarkable including testing of the inflammation markers and rheumatoid arthritis markers. As we discussed, please stop the plaquenil and we'll see what the ultrasound shows in a few months with regard to the presence of inflammatory arthritis. Please let me know if you have any questions or concerns along the way. In the meantime, please see your eye doctor for plaquenil testing if they confirm they haven't done this in the past year. documented in this encounter [facility] 12-15-2023 Miscellaneous Notes PT would like to schedule his [facility] SYN appointment in January. Let PT know the [facility] US department doesn't have the January schedule yet but will call back as soon as the schedule is available to schedule the appointment. Called patient on December 14, 2023 at 3:20 PM to schedule their [facility] US exam. No answer, left VM, 1st attempt. Visit Type: [facility] SYN Visit Length: 45, 50 OR 60 MINUTES Order Name/Protocol: US HAND/WRIST SYNOVIAL SCREEN RT+LT; EVAL FOR SYNOVITIS Preferred Provider: N/A Comment: N/A Location: ANY FACILITY Slot held: N/A documented in this encounter [facility] 12-14-2023 Miscellaneous Notes US HAND/WRIST SYNOVIAL SCREEN LEFT (Order #[id number]) on 12/14/23 US HAND/WRIST SYNOVIAL SCREEN RIGHT (Order #[id number]) on 12/14/23 documented in this encounter [facility] 12-14-2023 Instructions Alex Erazo MD - 12/14/2023 2:34 PM EDT A mainstay of treatment for joint, bone, and muscle pain has been a class of medications known as nonsteroidal anti-inflammatory drugs or NSAIDs. Traditional NSAIDs include aspirin, ibuprofen (Advil, Motrin, etc.), naproxen (e.g., Aleve), meloxicam (Mobic), diclofenac, indomethacin, and many other generic and brand name drugs. A newer NSAID is celecoxib (Celebrex), which is called a ORDAZ-2 inhibitor or a ORDAZ-2 selective NSAID. Take NSAIDs with food as they have an increased risk for causing GI upset when taken on an empty stomach. If you continue to have an upset stomach, you can try taking irso-ajb-[id number] omeprazole (ie Prilosec) for stomach protection. If you continue to experience any upset stomach while on NSAIDs, please stop the NSAID and seek medical evaluation. Do not mix NSAIDs; in another words, don't take more than one type of NSAID at a time as doing so could increase your chance of possible side effects. Baby aspirin is an exception to this rule so if you're on a daily baby aspirin, you can continue this while on another NSAID. Potential side effects of NSAIDs include upset stomach, ulcers, high blood pressure, liver issues, kidney issues, an increased tendency to bleed and contribution to the development of coronary artery heart disease and stroke. You can take acetaminophen (tylenol) up to 3000mg daily as needed for pain while on NSAIDs. documented in this encounter [facility] 12-14-2023 History of Presen t illness Narrative On 12/14/2023, I had the pleasure of seeing Sylvie Chiu at the [facility]. Sylvie Chiu was referred by Dr. Hussein Ordonez for an opinion and advice regarding joint pain. My findings and final recommendations will be communicated to the requesting health care provider by way of the shared medical record for internal providers or letter via the [employer] for external providers. 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 - For decades, has had pain in the spine, shoulders, hands (entire), hips, L knee and feet. Worse after activity. Worst time of day is the evening. - In '23, started on HCQ 200mg/day by PCP. - Today, reports he's unsure whether HCQ has helped. No recent prednisone. - Morning stiffness x1 hour - Takes celebrex daily for years which helps. Sometimes takes tylenol which helps - With tightness of the wrists and MCPs - Hasn't had an HCQ eye exam. (Blind in one eye for about 20 yrs) 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 Treated with Itraconazole & Prednisone History of anal fissures Obesity APRIL (obstructive sleep apnea) 02/2007 Pain in joint, multiple sites Prostate cancer (HCC) Unspecified essential hypertension Unspecified glaucoma(365.9) PAST SURGICAL HISTORY Procedure Laterality Date ANKLE SURGERY HX Left left ankle fracture and piece of metal removed ARTHRP KNE CONDYLE&PLATU MEDIAL&LAT COMPARTMENTS Right 06/30/2018 Knee replacement, total BRONCHOSCOPY 09/17/2006 COLONOSCOPY 04/2016 MEDIASTINOSCOPY 10/02/2006 histoplasmosis NEUROPLASTY &/TRANSPOS MEDIAN NRV CARPAL TUNNE Right 11/28/2015 Carpal tunnel decomp PAST SURGICAL HISTORY OF lasik bilat.; 5 ops R eye and now blind R REMOVAL OF ANAL FISSURE ROTATOR CUFF REPAIR Right ROTATOR CUFF REPAIR Left TONSILLECTOMY & ADENOIDECTOMY <AGE 14 VASECTOMY UNI/BI SPX W/POSTOP SEMEN EXAMS ALLERGIES Allergen Reactions Amoxicillin Rash, Shortness of Breath MEDICATIONS: Current Outpatient Medications Medication Sig ipratropium-albuterol (DUONEB) 0.5 mg-3 mg(2.5 mg base)/3 mL nebu Inhale 3 mL as instructed four times daily. tamsulosin (FLOMAX) 0.4 mg TAKE 2 CAPSULES BY MOUTH ONCE DAILY 30 MINUTES AFTER A MEAL furosemide (LASIX) 20 mg tablet Take 1 tablet by mouth once daily. celecoxib (CELEBREX) 200 mg capsule Take 200 mg by mouth twice daily. iv contrast (will be provided with radiology test) MRI Prostate Inject, intravenously, once for 1 dose. No IV access, insert saline lock prior to the beginning of sedation, infusion, injection of imaging exam. Discontinue saline lock post exam. If Pt. has a central line or IVAD, may access for administration according to line specific nursing protocol. Once exam is complete flush line and de-access according to line specific nursing protocol in the MR contrast administration guidelines link. acetaminophen (TYLENOL) 325 mg tablet Take 650 mg by mouth as needed. BIPAP ASV Adaptive Servo-Ventilation (ASV) with end-expiratory pressure (EEP) of 9 cmH2O and variable pressure support of 3-10 cmH2O. mask (pt pref), chin strap, heated tubing & humidity, filters. Lifetime supplies. APRIL: G47.33. ALBUTEROL INHALATION Inhale 1 Inhalation as instructed as needed. hot humid weather lisinopril-hydrochlorothiazide (PRINZIDE,ZESTORETIC) 20-12.5 mg per tablet Take 1 tablet by mouth once daily. modafinil(PROVIGIL 200 MG TAB) Take one(1) tablet daily in the morning. pantoprazole (PROTONIX) 40 mg ORAL TbEC Take one(1) tablet daily. BIPAP Please supply patient with Full face mask, FusionOps VIP [id number]. No current facility-administered medications for this visit. FAMILY HISTORY Problem Relation Age of Onset Colon Cancer Father mgf other (hyperchol) Father other (cva) Father pgf, mgm other (heart dis) Father pgm Prostate Cancer Maternal Grandfather SOCIAL HISTORY: Lives in [place] with spouse Tobacco use: None Alcohol use: 2 drinks/week Drug use: None Review of Systems CONSTITUTION: HEENT: Positive for: Trouble swallowing RESPIRATORY: GASTROINTESTINAL: Positive for: Diarrhea and Abdominal pain MUSCULOSKELETAL: Positive for: Arthralgias, Myalgias, Muscle weakness, Joint swelling and Morning Joint Stiffness NEUROLOGICAL: Positive for: Numbness and Memory loss SKIN: Positive for: Skin changes EYES: Positive for: Eye redness, Eye dryness and Visual disturbance CARDIOVASCULAR: Positive for: Leg swelling GENITOURINARY: Positive for: Dysuria HEMATOLOGIC/LYMPHATIC: PHYSICAL EXAM: VITALS: Blood pressure 117/73, pulse (!) 58, temperature 36.4 C (97.6 F), temperature source Oral, height 180.3 cm (5' 11), weight (!) 146.1 kg (322 lb). CONSTITUTIONAL: Well-appearing, in NAD. SKIN: No rash. No sclerodactyly, calcinosis, telangiectasias, digital ulcers, or skin thickening. EYES: No scleral icterus or conjunctivitis ENT and Mouth: External ears normal. Nares normal. RESPIRATORY: Normal breath sounds, clear to auscultation. CARDIOVASCULAR: Regular rate and rhythm, no murmurs or rubs EXTREMITIES/LYMPH: No edema bilaterally NEURO: Awake, alert and oriented, antalgic gait MUSCULOSKELETAL: JOINT APPEARANCE: Heberden's nodes present bilaterally. No erythema or warmth of any upper or lower extremity joint. RANGE OF MOTION: Unable to fully close fists bilaterally. SWOLLEN JOINTS/SYNOVITIS: No synovitis of any joint. TENDER JOINTS: None Widespread Pain Index: 10 (0-19) Symptoms Severity Scale: 10 (0-12) WPI>7 and SS Scale>5 OR WPI 3-6 and SS Scale >9 consistent with fibromyalgia LABORATORY: Latest Ref Rn 09/25/2023 WBC 3.70 - 11.00 k/uL 4.44 RBC 4.20 - 6.00 m/uL 4.15 (L) Hemoglobin 13.0 - 17.0 g/dL 12.9 (L) Platelet Count 150 - 400 k/uL 97 (L) Albumin 3.9 - 4.9 g/dL 4.4 Calcium 8.5 - 10.2 mg/dL 10.0 Bilirubin, Total 0.2 - 1.3 mg/dL 0.5 Alkaline Phosphatase 38 - 113 U/L 99 AST 14 - 40 U/L 16 ALT 10 - 54 U/L 11 Glucose 74 - 99 mg/dL 118 (H) BUN 9 - 24 mg/dL 18 Creatinine 0.73 - 1.22 mg/dL 0.90 Sodium 136 - 144 mmol/L 141 Potassium 3.7 - 5.1 mmol/L 3.5 (L) Chloride 97 - 105 mmol/L 104 CO2 22 - 30 mmol/L 26 Anion Gap 9 - 18 mmol/L 11 eGFR >=60 mL/min/1.73m 91 Latest Ref Rng 07/09/2007 06/22/2009 03/05/2012 11/14/2015 Sm Antibody <1.0 AI <0.2 STARCH TREATING ASSISTANT Antibody <1.0 AI <0.2 SSA Antibody <1.0 AI 0.2 SSB Antibody <1.0 AI 1.0 (H) Centromere Ab <1.0 AI <0.2 Scleroderma Ab, IgG <1.0 AI <0.2 Constance 1 Antibody <1.0 AI <0.2 Ribosomal STARCH TREATING ASSISTANT <1.0 AI <0.2 Chromatin Antibody <1.0 AI 0.4 NELLY Negative Positive ! Negative NELLY Titer Negative 1:40 ! Negative NELLY Pattern Speckled Not applicable for negative result. Rheumatoid Factor <20 IU/mL 3 <7 Legend: (H) High ! Abnormal STUDIES: *Jun xray L-spine- 1. Changes in the distal coccygeal segments as discussed. Along these findings have been present uncertain from the study 2. Degenerative changes *January xray hands- Degenerative changes. No acute abnormality IMPRESSION and PLAN: 1. Joint pain: Hx of prostate cancer previously on leupron. With non-inflammatory pain of the shoulders, hands (diffuse hand, not localized to one joint/area), hips, knee and feet which worsens with activity and is worst by the end of the day. Known osteoarthritis of various areas including the hands and spine. On HCQ 200mg/day per PCP x1 year without much relief, which reportedly was started for the hands. Of note, he has blindness of one eye (wasn't advised about need for monitoring eye exams for HCQ). Explained that inflammatory arthritis is not clearly present, but will evaluate further for this. - Extensively explained the clinical scenario as above - Stop HCQ. Advised about the potential for retinal toxicity leading to blindness. Advised to see the eye doctor for a monitoring exam given he has been on this for 1 year (in the setting of pre-existing blindness of one eye). - Advised to have labs done today and an US wrists/hands to assess for synovitis at least 3 months after stopping HCQ to assess for inflammatory arthritis 2. Generalized osteoarthritis: Hand, knees, spine - Explained diagnosis and provided written information on condition for review - Advised taking tylenol up to 3000mg/day as needed for pain. Written instructions provided as a reference. - Advised to hold the celebrex and try more acetaminophen to see if APAP would work as well. Advised about the more favorable safety profile of APAP. R/B/A of NSAIDs discussed including potential for GI upset/ulcers, bleeding complications, high blood pressure, kidney dysfunction, liver dysfunction and contribution to CAD and stroke. Advised not to mix different types of NSAIDs in the same day. Printed information on NSAIDs provided for review. 3. General health maintenance: - Continue follow-up with PCP for routine health maintenance and malignancy screening Follow-up in 1 year with me or sooner if needed (consider repeat US to assess for synovitis 1 year later if indicated). Patient was instructed to call if any questions or concerns. Thank you for allowing me to participate in the care of your patient. Alex Erazo MD I spent a total of 58 minutes on the date of the service which included preparing to see the patient, [id number] patient care, completing clinical documentation, obtaining and/or reviewing separately obtained history, performing a medically appropriate examination, counseling and educating the patient/family/caregiver, ordering medications, tests, or procedures, independently interpreting results (not separately reported), and communicating results to the patient/family/caregiver. documented in this encounter [facility] 07-20-2023 History of Presen t illness Narrative Radiology Service Progress Note PATIENT NAME: Sylvie Chiu MRN: [id number] DATE OF SERVICE: July 20, 2023 TIME: 7:56 AM PATIENT IDENTITY VERIFICATION COMPLETED USING TWO (2) IDENTIFIERS: Name and Date of confirmed by patient verbally. FALL SCREENING: Has the patient had 2 falls in the last year or 1 fall with injury or currently using an Ambulatory Assistive Device (Walker, Cane, Wheelchair, Crutches, etc.)? No PATIENT GENDER DATA: Male PATIENT RELEVANT IMPLANT DATA REVIEWED: Not Applicable RADIOLOGY DEPARTMENT: General X-ray: Exam(s) Completed: Spine X-Ray(s): Lumbar AP / LAT / L5-S1 and Sacrum/Coccyx Pelvis X-Ray: Pelvis inlet/outlet PERIPHERAL IV DATA: Not applicable SIGNED BY: RT Radha(Eyal) July 20, 2023 7:56 AM documented in this encounter [facility] 07-09-2023 Miscellaneous Notes Per Coral, patient wanted XRays done at [facility] and they cannot all be done in the same department, so the patient opted for the [facility] to schedule vs walk in. documented in this encounter [facility] 06-15-2023 Nurse Note Images from the original note were not included. Radiation Therapy - Nursing Note (Follow-up) PATIENT NAME: Sylvie Chiu PATIENT June 15, 2023 [facility] FACILITY/LOCATION: [place] Reason for visit: Follow up. Subjective Data My energy is low. I am tired all the time and my gut hurts all the time. I have 3, 4, 5 loose stools a day. I don't take the Imodium. I just don't like taking all these pills. Additional Data Do you want to see a Certified Nurse Operating Room? No Difficulty performing or completing routine daily living activities: Yes low energy Nursing Assessment Fatigue: moderate; causing difficulty performing some activities Appetite: good Weight Gain/Loss: Yes Last 6 Encounter Wt Readings: Date: Wt: 06/15/2023 143.8 kg (317 lb) 03/12/2023 139.4 kg (307 lb 6.4 oz) 01/12/2023 145.8 kg (321 lb 6.4 oz) 12/13/2022 150.3 kg (331 lb 5.6 oz) 12/10/2022 148.7 kg (327 lb 14.4 oz) 12/09/2022 148.7 kg (327 lb 14.4 oz) Bowel Function: diarrhea 3-5 liquid bowel movements per day Bone Pain: generalized achiness/stiffness Focused Assessment PROSTATE - MALE PELVIS: Rectal bleeding: No. Rectal pain: Moderate. Bladder function: urgency, frequency, incontinence, incomplete emptying, retention. Urinary frequency (D/N): q1 hour/1. No pads. No burning or blood Takes Flomax 2/day Took 2 doses of Lupron, still + for hot flashes. Refusing further injections. SIGNED by: Rohini Saab RN documented in this encounter [facility] 06-15-2023 History of Presen t illness Narrative Images from the original note were not included. Radiation Oncology - Follow Up Note PATIENT NAME: Sylvie Chiu PATIENT DIAGNOSIS: 73 year old man with high-intermediate risk prostate cancer, [id number], GG2, clinical Stage IIB, iPSA 5.5 [Bruce 3+4=7 (1 core), Bruce 3+3=6 (9 cores) (10/13 cores+); prostate MRI - enlarged pelvic - concern for inguinal LN/bone metastasis, high-risk Decipher test - 0.98; PSMA-PET negative for bone/LN metastasis], s/p: Leuprolide 22.5 mg inj 09/09/22, 12/09/22 Radiation therapy 11/06/22 - 12/15/22 [7000 cGy/6600 cGy/5040 cGy/28 fx to prostate/SVs/pelvic lymph nodes] INTERVAL HISTORY: Mr. Chiu presents for routine follow-up approximately 6 months after the completion of radiation therapy. He went to the emergency room on 12/14/2022 due to shortness of breath and leg swelling. CTA chest was negative for pulmonary embolism however the study was limited secondary to suboptimal contrast bolus. Ultrasound showed superficial thrombophlebitis but no DVT in his lower extremities Mr. Chiu has a history of BPH managed with tamsulosin. He is noted to have an elevated PSA of 6.29 ng/mL on 10/18/2021. Repeat PSA on 06/04/2022 was 5.5 ng/mL. No prostate nodularity was present on MANJU. Prostate biopsy on 05/08/22 showed adenocarcinoma, Samantha 3+4=7 (1 core), Samantha 3+3=6 (9 cores) (10/13 cores+). CT of the pelvis and bone scan on 06/09/22 showed no metastatic disease. MRI showed evidence of bone metastasis (right femoral neck, right iliac, right posterior acetabulum), enlarged pelvic and bilateral inguinal lymph nodes, and disease at the left peripheral zone (PIRADS 5) bulging the capsule, compressing the adjacent neurovascular bundle. Decipher testing showed a high-risk score (below). PSMA-PET/CT on 08/07/22 showed no evidence of bone or lymph node metastasis. PSMA-expression lesions were noted in the prostate consistent with the known prostate cancer. He started Lupron on 09/09/22 and completed radiation therapy on 12/15/22. He finished radiation on 12/15/22 PSA HISTORY: PSA (ng/mL) Date Value 06/11/2023 0.02 03/09/2023 0.03 12/05/2022 0.41 06/04/2022 5.50 10/18/2021 6.29 PSA Screening (NG/ML) Date Value 12/12/2008 2.4 ALLERGIES Allergen Reactions Amoxicillin Rash, Shortness of Breath furosemide (LASIX) 20 mg tablet Take 1 tablet by mouth once daily. celecoxib (CELEBREX) 200 mg capsule Take 200 mg by mouth twice daily. lisinopril-hydrochlorothiazide (PRINZIDE,ZESTORETIC) 20-12.5 mg per tablet Take 1 tablet by mouth once daily. modafinil(PROVIGIL 200 MG TAB) Take one(1) tablet daily in the morning. pantoprazole (PROTONIX) 40 mg ORAL TbEC Take one(1) tablet daily. tamsulosin (FLOMAX) 0.4 mg TAKE 2 CAPSULES BY MOUTH ONCE DAILY 30 MINUTES AFTER A MEAL methylPREDNISolone (MEDROL, JOSE MANUEL,) 4 mg Dose-Pack As Instructed per package (Patient not taking: Reported on 06/15/2023) loperamide HCl (IMODIUM A-D ORAL) Take by mouth. (Patient not taking: Reported on 01/12/2023) iv contrast (will be provided with radiology test) MRI Prostate Inject, intravenously, once for 1 dose. No IV access, insert saline lock prior to the beginning of sedation, infusion, injection of imaging exam. Discontinue saline lock post exam. If Pt. has a central line or IVAD, may access for administration according to line specific nursing protocol. Once exam is complete flush line and de-access according to line specific nursing protocol in the MR contrast administration guidelines link. (Patient not taking: Reported on 01/30/2023) acetaminophen (TYLENOL) 325 mg tablet Take 650 mg by mouth as needed. BIPAP ASV Adaptive Servo-Ventilation (ASV) with end-expiratory pressure (EEP) of 9 cmH2O and variable pressure support of 3-10 cmH2O. mask (pt pref), chin strap, heated tubing & humidity, filters. Lifetime supplies. APRIL: G47.33. ALBUTEROL INHALATION Inhale 1 Inhalation as instructed as needed. hot humid weather BIPAP Please supply patient with Full face mask, Santana Keller VIP [phone]. REVIEW OF SYSTEMS: Energy is low Appetite is low D/N = q1 hr/1 Hematuria: none Dysuria: none Incontinence: none Urgency: moderate Catheter use: none Medications to aid urination: Flomax Bowel movement frequency: 3/day Bowel movement quality: pasty Blood per rectum: none Androgen deprivation: Previously treated with Lupron, but not receiving at present time. PHYSICAL EXAM: Wt (!) 143.8 kg (317 lb) BMI 44.21 kg/m KPS: 70 General Appearance: Alert and oriented. No acute distress. Rectal exam is deferred. ASSESSMENT/PLAN: 72 year old man with high-intermediate risk prostate cancer, [id number], GG2, clinical Stage IIB, iPSA 5.5 [Bruce 3+4=7 (1 core), Samantha 3+3=6 (9 cores) (/ cores+); prostate MRI - enlarged pelvic - concern for inguinal LN/bone metastasis, high-risk Decipher test - 0.98; PSMA-PET negative for bone/LN metastasis], s/p: Leuprolide 22.5 mg inj 09/09/22, 12/09/22 Radiation therapy 11/06/22 - 12/15/22 [7000 cGy/6600 cGy/5040 cGy/28 fx to prostate/SVs/pelvic lymph nodes] He is struggling with the residual effects of leuprolide; I recommended he discuss with his primary care physician looking into meeting with a dietitian and consider thyroid function testing (or endocrinology evaluation) as weight issues began with use of high-dose steroids for body swelling years ago. This is compounded by androgen deprivation for prostate cancer treatment. He is not interested in urology evaluation and would like to continue with Flomax. Refill will be provided. He will try Metamucil; if this does not help then I would recommend colonoscopy. PSA is now 0.02 ng/mL; we will repeat PSA in 6 months. I spent 25 minutes in the visit, with more than 50% of the total [id number] time of the visit in counseling / coordination of care. Signed by: Hussein Ordonez MD cc: Rickie Agosto MD documented in this encounter [facility] 04-10-2023 History of Presen t illness Narrative CHIEF COMPLAINT: Sylvie Chiu is a 73 year old male who presents today for follow up of left hip pain. HISTORY OF PRESENT ILLNESS: Patient notes that this pain has been present for almost two years. Pain is worse in the past weeks. Exacerbated with standing and weight bearing activities. Patient does not recall any specific injury. Patient notes that this pain started insidiously with no inciting event. He notes that pain is localized to the left lateral thigh. He notes the pain to be intermittent. He notes that this problem exhibits aggravating factors of prolonged standing and regular daily ambulation. He notes that this problem exhibits alleviating factors of rest and avoidance of aggravating activities. He notes no interruption of sleep from the symptoms. He notes radicular back pain on the left. Patient does not note any associated mechanical symptoms. Treatments so far have included physical therapy (home stretches). Activity level: patient is normally active, works daily which includes lifting. REVIEW OF SYMPTOMS: Constitutional: patient denies any recent fever, had lost 25 pounds but has put the weight back on. Gastrointestinal: patient denies any current abdominal discomfort Musculoskeletal: as noted in the HPI Neurologic: as noted in the HPI SOCIAL HISTORY: Tobacco Use: 1 packs/day, for 20 years. Types: Cigarettes ALLERGIES: ALLERGIES Allergen Reactions Amoxicillin Rash, Shortness of Breath PAST MEDICAL HISTORY: 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 Treated with Itraconazole & Prednisone History of anal fissures Obesity APRIL (obstructive sleep apnea) 02/2007 Pain in joint, multiple sites Prostate cancer (HCC) Unspecified essential hypertension Unspecified glaucoma(365.9) PHYSICAL EXAMINATION: Patient's vitals and nursing notes were reviewed. Vitals: There were no vitals taken for this visit. Skin: Skin color, texture, turgor normal, no suspicious rashes or lesions noted Psychiatric: mood and affect are appropriate, patient is oriented to time, place and person General Appearance: Well appearing, alert, in no acute distress, well-hydrated, and well nourished Cardiovascular: pedal pulses and radial pulses normal, no signs of upper or lower extremity edema Respiratory: no respiratory distress, no audible wheezing, no labored breathing, symmetric thoracic excursion Neurologic: bilateral deep tendon reflexes are normal and symmetric with no pathologic reflexes, sensation is grossly intact Lymphatic: no lymph node enlargement noted in the examined area Musculoskeletal Examination: ROM: no hip pain correlating to the thigh discomfort, antalgic gait Muscle Strength: 5/5 Neurologic: Sensation: L2-S1 symmetrically normal, Heel walk: normal Toe walk: normal Reflexes: Patellar (L4): 2/4 right, 2/4 left Special Tests: Straight Leg Raise (SLR): negative on the right and testing reproduces the presenting complaints Log Roll: negative bilaterally IMAGING: Final results and radiologist's interpretation, available in the [facility] health record. AP pelvis Images were reviewed with the patient/family members in the office today. My personal interpretation of the performed imaging is chronic degenerative changes. 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 Patient verbalizes understanding and agrees with the treatment plan as detailed above. Selwyn Leiva PA-C documented in this encounter [facility] 04-10-2023 History of Presen t illness Narrative Radiology Service Progress Note PATIENT NAME: Sylvie Chiu MRN: [id number] DATE OF SERVICE: April 10, 2023 TIME: 9:06 AM PATIENT IDENTITY VERIFICATION COMPLETED USING TWO (2) IDENTIFIERS: Name and Date of confirmed by patient verbally. FALL SCREENING: Has the patient had 2 falls in the last year or 1 fall with injury or currently using an Ambulatory Assistive Device (Walker, Cane, Wheelchair, Crutches, etc.)? No PATIENT GENDER DATA: Male PATIENT RELEVANT IMPLANT DATA REVIEWED: Not Applicable RADIOLOGY DEPARTMENT: General X-ray: Exam(s) Completed: Pelvis X-Ray: Pelvis with Hip Left and Wt. Bearing PERIPHERAL IV DATA: Not applicable SIGNED BY: RT Patricia(R) April 10, 2023 9:06 AM documented in this encounter [facility] 03-12-2023 History of Presen t illness Narrative Chief Complaint: Established patient follow up History of Present Illness: Sylvie is a 72 year old male who presents here today for follow up prostate cancer Not tolerating lupron well - fatigue, multiple joint discomfort, difficulty sleeping, hot flashes. - quit his job due to side effects - is questing need to continue lupron Diarrhea since radiation - up to 12 stools a day Denies black stool, no pain, no fever Using imodium as needed with some relief Was taking vitamin D supplement No calcium, no tumms Hematology/Oncology History: - Past medical history is carried forward from previous note: 12/09/2022 and updated appropriately Attending: Dr Agosto Diagnosis: Prostate cancer Stage IIB Treatment History: iPSA 5.5 05/08/2022 - Prostate biopsy - Prostatic adenocarcinoma -Samantha 3+4=7 (1 core), Samantha 3+3=6 (9 cores) (07/10 cores+) 05/08/2022 - high-risk Decipher test - 0.98 Prostate MRI - enlarged pelvic - concern for inguinal LN/bone metastasis PSMA-PET negative for bone/LN metastasis Radiation with Dr Ordonez PSA 10/18/2021 - 6.29 06/04/2022 - 5.5 Last - 03/09/2023- 0.03 Current Treatment: Lupron 22.5 every 3 months - initiated 09/09/2022 - current - Dr Agosto plan for 2 years of therapy Subjective/ Review of Systems: See HPI HEENT- denies any vision/hearing changes or headaches. RESP- denies shortness of breath, cough CARDIAC- denies chest pain, palpitations GI- Denies nausea, vomiting, constipation, diarrhea, blood in stool - denies dysuria, hematuria SKIN- denies new rashes MUSCULAR- no new muscular/skeletal pain or weakness NEURO- denies new neuropathy PAIN- denies Objective/ Exam: BP 119/63 Pulse 60 Temp 36.4 C (97.5 F) Resp 18 Wt (!) 139.4 kg (307 lb 6.4 oz) SpO2 100% BMI 42.87 kg/m GENERAL: Patient is a well developed, well nourished. Alert, oriented, pleasant and cooperative. NECK: Supple HEART- regular rate and rhythm LUNGS: clear to auscultation ABDOMEN: Abdomen soft, non-tender, + BS LOWER EXTREMITIES: No pitting edema. Recent Testing Reviewed in Epic: - LABS Assessment and Plan: C61 Prostate cancer (HCC) (primary encounter diagnosis) Z51.81, Z79.818 Encounter for monitoring Lupron therapy Comment: PSA < 0.03 Symptoms since start of therapy = fatigue, multiple joint discomfort, difficulty sleeping, hot flashes. Quit his job due to side effects and inability to work. Answered questions about Lupron and reason for therapy. Discussed supportive medication - tylenol, low dose antidepressants He is considering stopping therapy Hold lupron today Advised follow up with Dr Agosto to further discuss plan of care. Patient is agreeable ( Dr Agosto is out of town today - patient was unaware visit was changed to my scheduled) R19.7 Diarrhea, unspecified type Comment: Could be related to RT Check stool for blood/ c diff Reviewed hydration and diet Monitor E83.52 Hypercalcemia Comment: Hold vitamin D Recheck in follow up FOLLOW UP with Dr Agosto 03/16 Patient verbalized understanding, agrees with plan of care, and denies further questions at this time. Understands to call the office with further concerns/questions. Patricia Mims APRN.CNP March 12, 2023 documented in this encounter [facility] 02-05-2023 History of Presen t illness Narrative Associated Order(s): Small Joint Arthro/Inj: L thumb [facility] Post-Procedure Diagnose(s): Thumb pain, right; Primary osteoarthritis of first carpometacarpal joint of left hand Afsaneh Hansen PA-C Department of Orthopaedics Orthopaedics [address] [place] [id number] Dept: [phone] February 05, 2023 CHIEF COMPLAINT: New and Pain of the Left Hand Mr. Sylvie Chiu is a 72 year old male who presents with worsening pain at the base of his left thumb which has been bothering for the past several months. Pain today is a 7 out of 10 sharp aching that is worse when he picks up objects such as a cup or using the handles on the mower is at work. 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 He is right-hand dominant. He does have similar discomfort on his right hand but not as bad as his left. He takes Celebrex 200 mg daily for general aches and pains. ASSESSMENT: M79.644 Thumb pain, right (primary encounter diagnosis) M18.12 Primary osteoarthritis of first carpometacarpal joint of left hand PLAN: He has basal joint arthritis, since he is already on Celebrex he would like to try a corticosteroid injection today. We will also get him a rhizo forte brace that he can wear during activity. We briefly discussed his surgical options as well. Mr. Sylvie Chiu was advised as to contrast therapies and/or to take analgesics/anti-inflammatories as needed and all contraindications were reviewed. OBJECTIVE: Mr. Sylvie Chiu is a pleasant 72 year old in no apparent distress. Gen:There were no vitals taken for this visit. nl development, obese, no deformities ENT: Normocephalic, normal hearing, moist mucosa CV: Pulses:Radial= 2+ and symmetric, capillary refill < 2 secs, no peripheral edema/varicosities Skin: no rash, bruising or lesions. Good turgor. Psych: cooperative and appropriate, alert and oriented x 3, good mood and affect. Musculoskeletal: left thumb with mild swelling at the base. Mild tenderness to palpation at the dorsal capsule with very minimal crepitance. Painful grind test. Good motion at the MCP without hyperextension. Same with PIP and no locking or catching. Median, radial and ulnar nerves are intact. Non-tender first dorsal compartment with a negative Cirilo's test. Small Joint Arthro/Inj: L thumb CMC Informed Consent Consent Obtained: Verbal [place] Protocol A moment to CARE was completed. SIGN IN Sign in communication not applicable due to emergent procedure. Personnel directly involved with the procedure wore the appropriate PPE. Special Equipment: N/A Patient/Surrogate Stated/Verified: Patient name, Date of , Relevant allergies and Intended procedure TIME OUT Intended patient and procedure match the source document(s). Consent documented and matches the intended procedure. Relevant labs, photos, and/or imaging studies have been reviewed. Correct side/site marked and visible. Medications required for procedure verified. No fire risk assessment and interventions applicable. No implant(s) inserted. 02/05/2023 3:25 PM The procedure site was prepped in the usual sterile fashion. Medications: 3 mg betamethasone acetate-betamethasone sodium phosphate 6 mg/mL Anesthetics: 0.5 mL lidocaine (PF) 10 mg/mL (1 %) Outcome: tolerated well, no immediate complications Post-injection instructions were reviewed with the patient and the patient voiced understanding of these instructions. SIGN OUT No instruments, equipment or retained foreign bodies applicable. Imaging: IMPRESSION: Degenerative changes. No acute abnormality Manager Urgent Care: SAMANTHA Transcribe Date/Time: Feb 07 2023 7:11P Dictated by : ISAEL MAGAÑA MD This examination was interpreted and the report reviewed and electronically signed by: ISAEL MAGAÑA MD on Feb 07 2023 7:15PM EST Results-Findings * * *Final Report* * * DATE OF EXAM: Feb 05 2023 4:11PM MANUEL [id number] - XR HAND 3V PA/LAT/OBL RT / PROCEDURE REASON: M79.644-Thumb pain, right * * * * Physician Interpretation * * * * PROCEDURE: Bilateral hands INDICATION: Left hand pain. Right thumb pain . TECHNIQUE: XR HAND 3V PA/LAT/OBL LT, XR HAND 3V PA/LAT/OBL RT COMPARISON: None FINDINGS: Left hand: Osteopenia. 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 Osteoarthritic change in all DIP and PIP joints as well as the 2nd MCP joint. No fracture or dislocation. No erosion or focal soft tissue swelling. Right hand: Osteopenia. Moderate triscaphe and moderate to advanced 1st CMC joint osteoarthrosis. Osteoarthritic change in the DIP and PIP joints of all digits as well as the 2nd and 3rd MCP joints. No erosion or focal soft tissue swelling. 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 celecoxib (CELEBREX) 200 mg capsule Take 200 mg by mouth twice daily. acetaminophen (TYLENOL) 325 mg tablet Take 650 mg by mouth as needed. BIPAP ASV Adaptive Servo-Ventilation (ASV) with end-expiratory pressure (EEP) of 9 cmH2O and variable pressure support of 3-10 cmH2O. mask (pt pref), chin strap, heated tubing & humidity, filters. Lifetime supplies. APRIL: G47.33. ALBUTEROL INHALATION Inhale 1 Inhalation as instructed as needed. hot humid weather lisinopril-hydrochlorothiazide (PRINZIDE,ZESTORETIC) 20-12.5 mg per tablet Take 1 tablet by mouth once daily. modafinil(PROVIGIL 200 MG TAB) Take one(1) tablet daily in the morning. pantoprazole (PROTONIX) 40 mg ORAL TbEC Take one(1) tablet daily. BIPAP Please supply patient with Full face mask, [employer] VIP [id number]. loperamide HCl (IMODIUM A-D ORAL) Take by mouth. (Patient not taking: No sig reported) iv contrast (will be provided with radiology test) MRI Prostate Inject, intravenously, once for 1 dose. No IV access, insert saline lock prior to the beginning of sedation, infusion, injection of imaging exam. Discontinue saline lock post exam. If Pt. has a central line or IVAD, may access for administration according to line specific nursing protocol. Once exam is complete flush line and de-access according to line specific nursing protocol in the MR contrast administration guidelines link. (Patient not taking: No sig reported) No current facility-administered medications for this visit. Allergies: Amoxicillin ROS: General (negative for fatigue, malaise, weight loss/gain) HEENT (negative for headache, earache, recent vision changes, sinus pain, sore throat) Respiratory (no recent shortness of breath, hemoptysis) CV (negative for chest tightness, palpitations) Musculoskeletal (see HPI) Psych (no depression, anxiety) This note was partially generated using [employer] voice recognition system, and there may be some incorrect words, spellings, and punctuation that were not noted in checking the note before saving. Afsaneh Hansen PA-C documented in this encounter [facility] 02-05-2023 History of Presen t illness Narrative Radiology Service Progress Note PATIENT NAME: Sylvie Chiu MRN: [id number] DATE OF SERVICE: February 05, 2023 TIME: 2:49 PM PATIENT IDENTITY VERIFICATION COMPLETED USING TWO (2) IDENTIFIERS: Name and Date of confirmed by patient verbally. FALL SCREENING: Has the patient had 2 falls in the last year or 1 fall with injury or currently using an Ambulatory Assistive Device (Walker, Cane, Wheelchair, Crutches, etc.)? No PATIENT GENDER DATA: Male PATIENT RELEVANT IMPLANT DATA REVIEWED: Not Applicable RADIOLOGY DEPARTMENT: General X-ray: Exam(s) Completed: Upper Extremity X-Ray(s): Hand, left PERIPHERAL IV DATA: Not applicable SIGNED BY: RICARDA Dc February 05, 2023 2:49 PM documented in this encounter [facility] 02-05-2023 Miscellaneous Notes Radiology Service Progress Note PATIENT NAME: Sylvie Chiu MRN: [id number] DATE OF SERVICE: February 05, 2023 TIME: 4:10 PM PATIENT IDENTITY VERIFICATION COMPLETED USING TWO (2) IDENTIFIERS: Name and Date of confirmed by patient verbally. FALL SCREENING: Has the patient had 2 falls in the last year or 1 fall with injury or currently using an Ambulatory Assistive Device (Walker, Cane, Wheelchair, Crutches, etc.)? No PATIENT GENDER DATA: Male PATIENT RELEVANT IMPLANT DATA REVIEWED: Not Applicable RADIOLOGY DEPARTMENT: General X-ray: Exam(s) Completed: Upper Extremity X-Ray(s): Hand, right PERIPHERAL IV DATA: Not applicable SIGNED BY: RT Coral(R) February 05, 2023 4:10 PM documented in this encounter [facility] 02-05-2023 Progress note Formatting of t his note might be different from the original. Radiology Service Progress Note PATIENT NAME: Sylvie Chiu MRN: [id number] DATE OF SERVICE: February 05, 2023 TIME: 4:10 PM PATIENT IDENTITY VERIFICATION COMPLETED USING TWO (2) IDENTIFIERS: Name and Date of confirmed by patient verbally. FALL SCREENING: Has the patient had 2 falls in the last year or 1 fall with injury or currently using an Ambulatory Assistive Device (Walker, Cane, Wheelchair, Crutches, etc.)? No PATIENT GENDER DATA: Male PATIENT RELEVANT IMPLANT DATA REVIEWED: Not Applicable RADIOLOGY DEPARTMENT: General X-ray: Exam(s) Completed: Upper Extremity X-Ray(s): Hand, right PERIPHERAL IV DATA: Not applicable SIGNED BY: RT Coral(R) February 05, 2023 4:10 PM [facility] 01-30-2023 History of Presen t illness Narrative Associated Order(s): Large Joint Arthro/Inj: L knee joint Post-Procedure Diagnose(s): Primary osteoarthritis of left knee Sylvie comes in today for a repeat left knee injection. 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 The left knee is known bone on bone patellofemoral and near bone on bone medially on films from 2021. His last injection was 12/24/21 and seemed to help until recently. Large Joint Arthro/Inj: L knee joint Informed Consent Consent Obtained: Verbal [place] Protocol A moment to CARE was completed. SIGN IN Personnel directly involved with the procedure wore the appropriate PPE. Special Equipment: N/A Patient/Surrogate Stated/Verified: Patient name, Date of , Relevant allergies and Intended procedure TIME OUT Intended patient and procedure match the source document(s). Consent documented and matches the intended procedure. Relevant labs, photos, and/or imaging studies have been reviewed. Correct side/site marked and visible. Medications required for procedure verified. No fire risk assessment and interventions applicable. No implant(s) inserted. 01/30/2023 2:36 PM The procedure site was prepped in the usual sterile fashion. Site: L knee joint Medications: 12 mg betamethasone acetate-betamethasone sodium phosphate 6 mg/mL Anesthetics: 3 mL lidocaine (PF) 10 mg/mL (1 %) Outcome: Tolerated well, no immediate complications Post-injection instructions were reviewed with the patient and the patient voiced understanding of these instructions. SIGN OUT No instruments, equipment or retained foreign bodies applicable. Selwyn Leiva PA-C documented in this encounter [facility] 01-12-2023 Nurse Note Images from the original note were not included. Radiation Therapy - Nursing Note (Follow-up) PATIENT NAME: Sylvie Chiu PATIENT January 12, 2023 [facility] FACILITY/LOCATION: [place] Reason for visit: Follow up. Subjective Data I have a whole body rash, unknown cause. I saw [facility] told to stop Neurontin now arthritis is very painful. I stopped Imodium thinking it caused the rash I cut the Flomax to 1 a day and rash is still there. I have frequent urination, I am not emptying my bladder. My bowels are like mud now; no more explosive diarrhea but, if I lift something I will have BM leakage and won't even know it. The Lupron injections are causing a lot of problems, moodiness, muscle weakness, hot flashes and extreme fatigued Additional Data Do you want to see a Certified Nurse Operating Room? No Difficulty performing or completing routine daily living activities: No Nursing Assessment Fatigue: moderate; causing difficulty performing some activities Appetite: good Weight Gain/Loss: Yes Last 6 Encounter Wt Readings: Date: Wt: 01/12/2023 145.8 kg (321 lb 6.4 oz) 12/13/2022 150.3 kg (331 lb 5.6 oz) 12/10/2022 148.7 kg (327 lb 14.4 oz) 12/09/2022 148.7 kg (327 lb 14.4 oz) 12/03/2022 149.2 kg (328 lb 14.4 oz) 11/26/2022 147.3 kg (324 lb 12.8 oz) Bowel Function: mud consistency and leakage of stool with lifting Bone Pain: moderate pain: pain or analgesics interfering with function, but not interfering with activities of daily living Focused Assessment PROSTATE - MALE PELVIS: Rectal bleeding: No. Rectal pain: No. Bladder function: urgency, frequency. Urinary frequency (D/N): multiple times he reports he is not emptying his bladder /0. Future Appointments Date Time Provider Department Center 03/09/2023 10:00 AM [facility] 03/12/2023 10:00 AM Rickie Agosto MD [facility] 03/12/2023 10:30 AM INJECTION [facility] SIGNED by: Ros Cheng RN documented in this encounter [facility] 01-12-2023 History of Presen t illness Narrative Images from the original note were not included. Radiation Oncology - Follow Up Note PATIENT NAME: Sylvie Chiu PATIENT DIAGNOSIS: 72 year old man with high-intermediate risk prostate cancer, [id number], GG2, clinical Stage IIB, iPSA 5.5 [Samantha 3+4=7 (1 core), Bruce 3+3=6 (9 cores) (10/13 cores+); prostate MRI - enlarged pelvic - concern for inguinal LN/bone metastasis, high-risk Decipher test - 0.98; PSMA-PET negative for bone/LN metastasis], s/p: Leuprolide 22.5 mg inj 09/09/22, 12/09/22 Radiation therapy 11/06/22 - 12/15/22 [7000 cGy/6600 cGy/5040 cGy/28 fx to prostate/SVs/pelvic lymph nodes] INTERVAL HISTORY: Mr. Chiu presents for routine follow-up approximately 1 month after the completion of radiation therapy. He went to the emergency room on 12/14/2022 due to shortness of breath and leg swelling. CTA chest was negative for pulmonary embolism however the study was limited secondary to suboptimal contrast bolus. Ultrasound showed superficial thrombophlebitis but no DVT in his lower extremities Mr. Chiu has a history of BPH managed with tamsulosin. He is noted to have an elevated PSA of 6.29 ng/mL on 10/18/2021. Repeat PSA on 06/04/2022 was 5.5 ng/mL. No prostate nodularity was present on MANJU. Prostate biopsy on 05/08/22 showed adenocarcinoma, Bruce 3+4=7 (1 core), Samantha 3+3=6 (9 cores) (10/13 cores+). CT of the pelvis and bone scan on 06/09/22 showed no metastatic disease. MRI showed evidence of bone metastasis (right femoral neck, right iliac, right posterior acetabulum), enlarged pelvic and bilateral inguinal lymph nodes, and disease at the left peripheral zone (PIRADS 5) bulging the capsule, compressing the adjacent neurovascular bundle. Decipher testing showed a high-risk score (below). PSMA-PET/CT on 08/07/22 showed no evidence of bone or lymph node metastasis. PSMA-expression lesions were noted in the prostate consistent with the known prostate cancer. He started Lupron on 09/09/22 and completed radiation therapy on 12/15/22. He finished radiation on 12/15/22 He has developed a rash, neurontin was stopped - 3 weeks ago, rash did not improve, but arthritis has worsened. He stopped imodium and is having mud like stools, leakage at time. PSA HISTORY: PSA (ng/mL) Date Value 12/05/2022 0.41 06/04/2022 5.50 10/18/2021 6.29 PSA Screening (NG/ML) Date Value 12/12/2008 2.4 ALLERGIES Allergen Reactions Amoxicillin Rash, Shortness of Breath tamsulosin (FLOMAX) 0.4 mg TAKE 2 CAPSULES BY MOUTH ONCE DAILY 30 MINUTES AFTER A MEAL furosemide (LASIX) 20 mg tablet Take 1 tablet by mouth once daily. acetaminophen (TYLENOL) 325 mg tablet Take 650 mg by mouth as needed. ALBUTEROL INHALATION Inhale 1 Inhalation as instructed as needed. hot humid weather lisinopril-hydrochlorothiazide (PRINZIDE,ZESTORETIC) 20-12.5 mg per tablet Take 1 tablet by mouth once daily. modafinil(PROVIGIL 200 MG TAB) Take one(1) tablet daily in the morning. pantoprazole (PROTONIX) 40 mg ORAL TbEC Take one(1) tablet daily. BIPAP Please supply patient with Full face mask, [employer] VIP [id number]. methylPREDNISolone (MEDROL, JOSE MANUEL,) 4 mg Dose-Pack As instructed per package loperamide HCl (IMODIUM A-D ORAL) Take by mouth. (Patient not taking: Reported on 01/12/2023) celecoxib (CELEBREX) 200 mg capsule Take 200 mg by mouth twice daily. (Patient not taking: Reported on 01/12/2023) iv contrast (will be provided with radiology test) MRI Prostate Inject, intravenously, once for 1 dose. No IV access, insert saline lock prior to the beginning of sedation, infusion, injection of imaging exam. Discontinue saline lock post exam. If Pt. has a central line or IVAD, may access for administration according to line specific nursing protocol. Once exam is complete flush line and de-access according to line specific nursing protocol in the MR contrast administration guidelines link. BIPAP ASV Adaptive Servo-Ventilation (ASV) with end-expiratory pressure (EEP) of 9 cmH2O and variable pressure support of 3-10 cmH2O. mask (pt pref), chin strap, heated tubing & humidity, filters. Lifetime supplies. APRIL: G47.33. REVIEW OF SYSTEMS: +Muscle weakness +Emotional changes Hematuria: No Dysuria: Yes Incontinence: Yes Urgency: moderate (he is on Lasix) Catheter use: none Medications to aid urination: Flomax 1 tab/day (2 did not help) +Hesitancy Bowel movement quality: mud like Blood per rectum: none Androgen deprivation: Currently being treated with Lupron. PHYSICAL EXAM: Wt (!) 145.8 kg (321 lb 6.4 oz) BMI 44.83 kg/m KPS: 90 General Appearance: Alert and oriented. No acute distress. Rectal exam is deferred. ASSESSMENT/PLAN: 72 year old man with high-intermediate risk prostate cancer, [id number], GG2, clinical Stage IIB, iPSA 5.5 [Samantha 3+4=7 (1 core), Bruce 3+3=6 (9 cores) (10/13 cores+); prostate MRI - enlarged pelvic - concern for inguinal LN/bone metastasis, high-risk Decipher test - 0.98; PSMA-PET negative for bone/LN metastasis], s/p: Leuprolide 22.5 mg inj 09/09/22, 12/09/22 Radiation therapy 11/06/22 - 12/15/22 [7000 cGy/6600 cGy/5040 cGy/28 fx to prostate/SVs/pelvic lymph nodes] Mr. Chiu appears to have had a reaction to amoxicillin (shortness of breath/rash). Medrol Dosepak prescribed. We also discussed using Metamucil to have have more formed daily bowel movements. He may increase Flomax to 0.8 mg total per day, however he is hesitant as he thinks Flomax may be contributing to his rash (I explained that this would be very uncommon). He will see Dr. Agosto in February for his next Lupron shot; he is hesitant to receive further Lupron injections but will discuss this with Dr. Agosto. I will see him in mid May for follow-up with a PSA prior. Signed by: Hussein Ordonez MD cc: Norma Davies ([facility]) [address] [place] [address] DO Rickie Dean MD documented in this encounter [facility] 12-16-2022 History of Presen t illness Narrative SYLVIE CHIU [id number] 12/16/2022 [facility] Department of Radiation Oncology [facility] RADIATION ONCOLOGY: COMPLETION NOTE DATE OF SIMULATION: 10/23/2022 DATES OF TREATMENT: 11/06/2022 to 12/15/2022 TREATMENT MACHINE: Mojostreet TREATMENT AREA: Pelvis DIAGNOSIS: 72 year old man with high-intermediate risk prostate cancer, [id number], Stage IVB, GG2, clinical Stage IIB, iPSA 5.5 [Bruce 3+4=7 (1 core), Samantha 3+3=6 (9 cores) (10/13 cores+); prostate MRI - enlarged pelvic - concern for inguinal LN/bone metastasis, high-risk Decipher test - 0.98; PSMA-PET negative for bone/LN metastasis] CONCURRENT THERAPY: Lupron DELIVERED DOSE: The Pelvis PTV received a total dose of 7000 cGy in 28 fractions at 250 cGy/fraction prescribed to PTV mean at 97.6% IDL using 10 MV photons with VMAT Coplanar technique. ELAPSED DAYS: 41 TOLERANCE: Mr. Chiu showed expected signs of radiation toxicity; Gr 1 dermatitis, Gr 2 fatigue, Gr 2 proctitis and Gr 1 urinary frequency. RESPONSE: To be assessed in outpatient clinic. REMARKS: The patient will be seen again in follow up in approximately one month. Staff Physician Hussein Ordonez M.D. 3/26/91592:16 AM Electronically Signed cc: Norma Davies ([facility]) [address] [address] DO Rickie Dean MD documented in this encounter [facility] 12-10-2022 History of Presen t illness Narrative Radiation Oncology - On Treatment Review (OTR) Note PATIENT NAME: Sylvie Chiu PATIENT DIAGNOSIS: 72 year old man with high-intermediate risk prostate cancer, [id number], GG2, clinical Stage IIB, iPSA 5.5 [Samantha 3+4=7 (1 core), Samantha 3+3=6 (9 cores) (10/ cores+); prostate MRI - enlarged pelvic - concern for inguinal LN/bone metastasis, high-risk Decipher test - 0.98; PSMA-PET negative for bone/LN metastasis], s/p: Leuprolide 22.5 mg inj 09/09/22, 12/09/22 COURSE: definitive Current dose: 6250 cGy in 25 fx Planned dose: 7000 cGy in 28 fx SUBJECTIVE: He feels more tired. He continues to have issues with diarrhea; only using imodium bid. Urination D/N 10-12/0-1 (but staying up late), using Flomax bid. Some dysuria. He notes his leg is bigger/warmer/red. PHYSICAL EXAM: KPS: 90 General Appearance: Alert and oriented. No acute distress. IMAGING/LAB RESULTS: L LE US - no DVT, but with superficial thrombophlebitis in the small saphenous vein. PSA 12/05/22 - 0.41 ng/mL TOXICITY ASSESSMENT (CTC v4.0): Fatigue:grade 2 - Fatigue not relieved by rest; limiting instrumental ADL Radiation Dermatitis: grade 1 Diarrhea:grade 0 - No symptoms Proctitis: grade 2 Urinary frequency: grade 1 - present Dysuria: grade 0 - No symptoms Urinary incontinence: grade 0 (No symptoms) Urinary retention: grade 0 - No symptoms LLE warm/swollen Treatment chart checked: Yes Patient treatment site reviewed and verified:Yes Port films reviewed and current:Yes Medications started: None ASSESSMENT/PLAN: Clinically declined. Toxicity within expected parameters, proctitis - Gr II, imodium/diet modification discussed; Gr 1 dermatitis. Continue radiation treatment as planned. Superficial thormobophlebitis in the small saphenous vein - we will monitor for symptom progression. Dicloxacillin prescribed. PSA/testosterone and follow-up for Lupron with Patricia Mims NP on 12/09/22. Hussein Ordonez MD documented in this encounter [facility] 12-10-2022 Nurse Note Images from the original note were not included. Radiation Therapy - Nursing Note (OTV) PATIENT NAME: Sylvie Chiu PATIENT December 10, 2022 [facility] FACILITY/LOCATION: [place] NURSING NOTE TYPE: PROSTATE - MALE PELVIS Subjective Data I am more tired, still having diarrhea, and frequent urination. The RLE is more swollen, and red this week. Additional Data Do you want to see a Certified Nurse Operating Room? No Difficulty performing or completing routine daily living activities: No Status: Patient is male Nursing Assessment Fatigue: increased fatigue over baseline but not altering normal activities Appetite: good Nutritional Intake: Regular oral intake. Weight Gain/Loss: No Ambulatory weight history: Last 6 Encounter Wt Readings: Date: Wt: 12/10/2022 148.7 kg (327 lb 14.4 oz) 12/09/2022 148.7 kg (327 lb 14.4 oz) 12/03/2022 149.2 kg (328 lb 14.4 oz) 11/26/2022 147.3 kg (324 lb 12.8 oz) 11/19/2022 147.4 kg (324 lb 14.4 oz) 11/11/2022 148.1 kg (326 lb 8 oz) Nausea:None Vomiting: None Bowel Function: diarrhea 3 - 6 to 8 soft or liquid bowel movements per day takes 1 imodium in am and 1 in PM only discussed increasing Erythema/Hyperpigmentation:none Desquamation:none Rash:none Skin Care: None Skin Sensation: Within Normal Limits Focused Assessment PROSTATE - MALE PELVIS: Rectal bleeding: No. Rectal pain: No. Bladder function: urgency, frequency, painful urination, incomplete emptying. Urinary frequency (D/N): >12/0-1. Flomax BID Future Appointments Date Time Provider Department Center 12/11/2022 10:15 AM TREATMENT [facility] 12/12/2022 10:15 AM TREATMENT [facility] 12/15/2022 10:15 AM TREATMENT [facility] 01/12/2023 10:00 AM Hussein Ordonez MD [facility] 03/09/2023 10:00 AM [facility] 03/12/2023 10:00 AM Rickie Agosto MD [facility] 03/12/2023 10:30 AM IN[facility]CTION [facility] SIGNED by: Ros Cheng RN documented in this encounter [facility] 12-09-2022 History of Presen t illness Narrative Chief Complaint: Established patient follow up History of Present Illness: Sylvie is a 72 year old male who presents here today for follow up / treatment Has had hot flashes with lupron Some urinary concerns with radiation but better with flomax No new pain Hematology/Oncology History: - Past medical history is carried forward from previous note: Dr Ordonez 12/03/2022 and updated appropriately Attending: Dr Agosto Diagnosis: Prostate cancer Stage IIB Treatment History: iPSA 5.5 05/08/2022 - Prostate biopsy - Prostatic adenocarcinoma -Samantha 3+4=7 (1 core), Bruce 3+3=6 (9 cores) (07/10 cores+) 05/08/2022 - high-risk Decipher test - 0.98 Prostate MRI - enlarged pelvic - concern for inguinal LN/bone metastasis PSMA-PET negative for bone/LN metastasis Radiation with Dr Ordonez PSA 10/18/2021 - 6.29 06/04/2022 - 5.5 Last - 12/05/2022 - 0.41 Current Treatment: Lupron 22.5 every 3 months - initiated 09/09/2022 - Dr Agosto plan for 2 years of therapy Subjective/ Review of Systems: See HPI HEENT- denies any vision/hearing changes or headaches. RESP- denies shortness of breath, cough CARDIAC- denies chest pain, palpitations GI- Denies nausea, vomiting, constipation, diarrhea, blood in stool - denies dysuria, hematuria SKIN- denies new rashes MUSCULAR- no new muscular/skeletal pain or weakness NEURO- denies new neuropathy PAIN- denies Objective/ Exam: BP 136/70 Pulse (!) 57 Temp 36.7 C (98.1 F) (Temporal) Resp 18 Wt (!) 148.7 kg (327 lb 14.4 oz) SpO2 97% BMI 45.73 kg/m GENERAL: Patient is a well developed, well nourished. Alert, oriented, pleasant and cooperative. NECK: Supple HEART- regular rate and rhythm LUNGS: clear to auscultation ABDOMEN: Abdomen soft, non-tender, + BS LOWER EXTREMITIES: No pitting edema. Recent Testing Reviewed in Epic: - LABS Assessment and Plan: (C61) Prostate cancer (HCC) (primary encounter diagnosis) (Z51.81, Z79.818) Encounter for monitoring Lupron therapy (R23.2, T50.905A) Hot flash due to medication - Lupron today - undergoing radiation with Dr Ordonez - reviewed plan of care with Dr Agosto and plan for 2 years of Lupron. - testosterone low. Answered pt questions and let them know we do not need to follow routinely - PSA 0.41 - will continue to monitor every 3 months - reviewed management of hot flashes. Declines supportive meds at this time Monitor FOLLOW UP in 3 months with labs, Dr Agosto, and Lupron Patient verbalized understanding, agrees with plan of care, and denies further questions at this time. Understands to call the office with further concerns/questions. Patricia Mims APRN.CNP December 09, 2022 documented in this encounter [facility] 12-03-2022 Nurse Note Radiation Therapy - Nursing Note (OTV) PATIENT NAME: Sylvie Chiu PATIENT December 03, 2022 [facility] FACILITY/LOCATION: [place] NURSING NOTE TYPE: PROSTATE - MALE PELVIS Subjective Data I am still having diarrhea and will I have to go I need to get there fast. I am doing 1-2 Imodium a day. The 2 Flomax a day has helped . I had the first time every yesterday morning pelvic cramping. Additional Data Do you want to see a Certified Nurse Operating Room? No Difficulty performing or completing routine daily living activities: No Status: Patient is male Nursing Assessment Fatigue: increased fatigue over baseline but not altering normal activities Appetite: good Nutritional Intake: Regular oral intake. Weight Gain/Loss: Yes Ambulatory weight history: Last 6 Encounter Wt Readings: Date: Wt: 12/03/2022 149.2 kg (328 lb 14.4 oz) 11/26/2022 147.3 kg (324 lb 12.8 oz) 11/19/2022 147.4 kg (324 lb 14.4 oz) 11/11/2022 148.1 kg (326 lb 8 oz) 09/04/2022 147 kg (324 lb) 08/11/2022 147.9 kg (326 lb) Nausea:None Vomiting: None Bowel Function: diarrhea 2 - 3 to 5 soft or liquid bowel movements per day Erythema/Hyperpigmentation:none Desquamation:none Rash:none Skin Care: None Skin Sensation: Within Normal Limits Focused Assessment PROSTATE - MALE PELVIS: Rectal bleeding: No. Rectal pain: No. Bladder function: urgency, frequency. Urinary frequency (D/N): 10-12/. Flomax 1 in am and 1 in PM Reviewed diet modification due to diarrhea and use of Imodium SIGNED by: Ros Cheng RN documented in this encounter [facility] 12-03-2022 History of Presen t illness Narrative Radiation Oncology - On Treatment Review (OTR) Note PATIENT NAME: Sylvie Chiu PATIENT DIAGNOSIS: 72 year old man with high-intermediate risk prostate cancer, [id number], GG2, clinical Stage IIB, iPSA 5.5 [Samantha 3+4=7 (1 core), Samantha 3+3=6 (9 cores) (10/ cores+); prostate MRI - enlarged pelvic - concern for inguinal LN/bone metastasis, high-risk Decipher test - 0.98; PSMA-PET negative for bone/LN metastasis], s/p: Leuprolide 22.5 mg inj 09/09/22 COURSE: definitive Current dose: 5000 cGy in 20 fx Planned dose: 7000 cGy in 28 fx SUBJECTIVE: He feels more tired. He had pelvic cramping yesterday. He is having diarrhea, but only using up to 2/day. He had 4-5 bm in the morning, then 2-3 at night. Stool are urgent. He is using Flomax bid, has urinary urgency, some discomfort at the start of stream. Feels that he does empty his bladder well. PHYSICAL EXAM: KPS: 90 General Appearance: Alert and oriented. No acute distress. IMAGING/LAB RESULTS: L LE US - no DVT, but with superficial thrombophlebitis in the small saphenous vein. TOXICITY ASSESSMENT (CTC v4.0): Fatigue:grade 2 - Fatigue not relieved by rest; limiting instrumental ADL Radiation Dermatitis: grade 0 - No symptoms Diarrhea:grade 0 - No symptoms Proctitis: grade 2 Urinary frequency: grade 1 - present Dysuria: grade 0 - No symptoms Urinary incontinence: grade 0 (No symptoms) Urinary retention: grade 0 - No symptoms Treatment chart checked: Yes Patient treatment site reviewed and verified:Yes Port films reviewed and current:Yes Medications started: None ASSESSMENT/PLAN: Clinically declined. Toxicity within expected parameters, proctitis - Gr II, imodium/diet modification discussed. Continue radiation treatment as planned. Superficial thormobophlebitis in the small saphenous vein - we will monitor for symptom progression. PSA/testosterone and follow-up for Lupron with Patricia Mims NP on 12/09/22. Hussein Ordonez MD documented in this encounter [facility] 12-02-2022 Nurse Note Patient in for his radiation treatment today and his had expressed concern for his LLE swelling and redness and concern for potential DVT. Patient reports has no pain , the left LE swollen calf 2+ red, warm to touch to the lateral left calf. He reported started [address] Ordonez did make aware and did assess patient and US was ordered and will be done today. documented in this encounter [facility] 11-26-2022 History of Presen t illness Narrative Radiation Oncology - On Treatment Review (OTR) Note PATIENT NAME: Sylvie Chiu PATIENT DIAGNOSIS: 72 year old man with high-intermediate risk prostate cancer, [id number], GG2, clinical Stage IIB, iPSA 5.5 [Samantha 3+4=7 (1 core), Samantha 3+3=6 (9 cores) (10/ cores+); prostate MRI - enlarged pelvic - concern for inguinal LN/bone metastasis, high-risk Decipher test - 0.98; PSMA-PET negative for bone/LN metastasis], s/p: Leuprolide 22.5 mg inj 09/09/22 COURSE: definitive Current dose: 3750 cGy in 15 fx Planned dose: 7000 cGy in 28 fx SUBJECTIVE: He feels more tired, has hot flashes. Appetite is good. +Diarrhea - has only used 1 imodium. He had 4 loose stools today, no blood/pain. Still with hot flashes; generalized arthritic pain. Uses 1 Flomax/day. Appetite is good. He has urinary urgency/frequency/incomplete emptying. Urination D/N 10-12, nocturia x0-1. +Urgency. Mild dysuria. PHYSICAL EXAM: KPS: 90 General Appearance: Alert and oriented. No acute distress. IMAGING/LAB RESULTS: None TOXICITY ASSESSMENT (CTC v4.0): Fatigue:grade 2 - Fatigue not relieved by rest; limiting instrumental ADL Radiation Dermatitis: grade 0 - No symptoms Diarrhea:grade 0 - No symptoms Proctitis: grade 2 Urinary frequency: grade 1 - present Dysuria: grade 0 - No symptoms Urinary incontinence: grade 0 (No symptoms) Urinary retention: grade 0 - No symptoms Treatment chart checked: Yes Patient treatment site reviewed and verified:Yes Port films reviewed and current:Yes Medications started: None ASSESSMENT/PLAN: Clinically declined. Toxicity within expected parameters, proctitis - Gr II, imodium/diet modification discussed. Continue radiation treatment as planned. PSA/testosterone and follow-up for Lupron with Patricia Mims NP on 12/09/22. Hussein Ordonez MD documented in this encounter [facility] 11-26-2022 Nurse Note Radiation Therapy - Nursing Note (OTV) PATIENT NAME: Sylvie Chiu PATIENT November 26, 2022 [facility] FACILITY/LOCATION: [place] NURSING NOTE TYPE: PROSTATE - MALE PELVIS Subjective Data I started having diarrhea, I have gone 4 times since I got up this morning. I do have slight burning at the start of urination and increased urgency and sometimes will have the urgency and urinate very little Additional Data Do you want to see a Certified Nurse Operating Room? No Difficulty performing or completing routine daily living activities: No Status: Patient is male Nursing Assessment Fatigue: increased fatigue over baseline but not altering normal activities Appetite: good reviewed diet modification due to diarrhea Nutritional Intake: Regular oral intake. Weight Gain/Loss: No Ambulatory weight history: Last 6 Encounter Wt Readings: Date: Wt: 11/26/2022 147.3 kg (324 lb 12.8 oz) 11/19/2022 147.4 kg (324 lb 14.4 oz) 11/11/2022 148.1 kg (326 lb 8 oz) 09/04/2022 147 kg (324 lb) 08/11/2022 147.9 kg (326 lb) 07/29/2022 145.2 kg (320 lb) Nausea:None Vomiting: had 4 loose stools this am usually daily BM Bowel Function: diarrhea 2 - 3 to 5 soft or liquid bowel movements per day had not been using Imodium to control did review today usage Erythema/Hyperpigmentation:none Desquamation:none Rash:none Skin Care: None Skin Sensation: Within Normal Limits Focused Assessment PROSTATE - MALE PELVIS: Rectal bleeding: No. Rectal pain: No. Bladder function: urgency, frequency. Urinary frequency (D/N): 0/10-12. Flomax currently 1 a day SIGNED by: Ros Cheng RN documented in this encounter [facility] 11-19-2022 Nurse Note Images from the original note were not included. Radiation Therapy - Nursing Note (OTV) PATIENT NAME: Sylvie Chiu PATIENT November 19, 2022 [facility] FACILITY/LOCATION: [facility] NOTE TYPE: PROSTATE - MALE PELVIS Subjective Data I am having 4, 5, 6 bowel movements a day. They are less formed, some looser. I am usually a one and done a day. Additional Data Do you want to see a Certified Nurse Operating Room? No Difficulty performing or completing routine daily living activities: No Status: Patient is male Nursing Assessment Fatigue: moderate; causing difficulty performing some activities Appetite: excellent Nutritional Intake: Regular oral intake. Weight Gain/Loss: No Ambulatory weight history: Last 6 Encounter Wt Readings: Date: Wt: 11/19/2022 147.4 kg (324 lb 14.4 oz) 11/11/2022 148.1 kg (326 lb 8 oz) 09/04/2022 147 kg (324 lb) 08/11/2022 147.9 kg (326 lb) 07/29/2022 145.2 kg (320 lb) 06/24/2022 147.8 kg (325 lb 12.8 oz) Nausea:None Vomiting: None Bowel Function: more soft and more frequent Erythema/Hyperpigmentation:none Desquamation:none Rash:none Skin Care: None Skin Sensation: Within Normal Limits Focused Assessment PROSTATE - MALE PELVIS: Rectal bleeding: No. Rectal pain: No. Bladder function: urgency, frequency, incomplete emptying. Urinary frequency (D/N): 10-12/0. Using Flomax SIGNED by: Rohini Saab RN documented in this encounter [facility] 11-19-2022 History of Presen t illness Narrative Radiation Oncology - On Treatment Review (OTR) Note PATIENT NAME: Sylvie Chiu PATIENT DIAGNOSIS: 72 year old man with high-intermediate risk prostate cancer, [id number], GG2, clinical Stage IIB, iPSA 5.5 [Bruce 3+4=7 (1 core), Samantha 3+3=6 (9 cores) (10/13 cores+); prostate MRI - enlarged pelvic - concern for inguinal LN/bone metastasis, high-risk Decipher test - 0.98; PSMA-PET negative for bone/LN metastasis], s/p: Leuprolide 22.5 mg inj 09/09/22 COURSE: definitive Current dose: 2500 cGy in 10 fx Planned dose: 7000 cGy in 28 fx SUBJECTIVE: He notes loose stools - 4-6, less formed, no blood/pain. Still with hot flashes; generalized arthritic pain. Uses 1 Flomax/day. Appetite is good. He has urinary urgency/frequency/incomplete emptying. Urination D/N 10-12, nocturia x1. PHYSICAL EXAM: KPS: 90 General Appearance: Alert and oriented. No acute distress. IMAGING/LAB RESULTS: None TOXICITY ASSESSMENT (CTC v4.0): Fatigue:grade 2 - Fatigue not relieved by rest; limiting instrumental ADL Radiation Dermatitis: grade 0 - No symptoms Diarrhea:grade 0 - No symptoms Proctitis: grade 0 - No symptoms Urinary frequency: grade 1 - present Dysuria: grade 0 - No symptoms Urinary incontinence: grade 0 (No symptoms) Urinary retention: grade 0 - No symptoms Treatment chart checked: Yes Patient treatment site reviewed and verified:Yes Port films reviewed and current:Yes Medications started: None ASSESSMENT/PLAN: Clinically stable. Toxicity within expected parameters. Continue radiation treatment as planned. Metamucil, imodium PRN PSA/testosterone and follow-up for Lupron with Patricia Mims NP on 12/09/22. Hussein Ordonez MD documented in this encounter [facility] 11-11-2022 History of Presen t illness Narrative Radiation Oncology - On Treatment Review (OTR) Note PATIENT NAME: Sylvie Chiu PATIENT DIAGNOSIS: 72 year old man with high-intermediate risk prostate cancer, [id number], GG2, clinical Stage IIB, iPSA 5.5 [Bruce 3+4=7 (1 core), Samantha 3+3=6 (9 cores) (10/13 cores+); prostate MRI - enlarged pelvic - concern for inguinal LN/bone metastasis, high-risk Decipher test - 0.98; PSMA-PET negative for bone/LN metastasis], s/p: Leuprolide 22.5 mg inj 09/09/22 COURSE: definitive Current dose: 1000 cGy in 4 fx Planned dose: 7000 cGy in 28 fx SUBJECTIVE: Since Lupron, he is constantly eating, feels weak, +joint pain, +hot flashes. BM daily, no bleeding. Using Flomax every other day. Urination D/N 10-/0. On Lisinopril/HCTZ. +Urinary frequency/sensation of incomplete emptying. Occaional start/stop. A.m. hesitency. Stream is variable, no bleeding. PHYSICAL EXAM: KPS: 90 General Appearance: Alert and oriented. No acute distress. IMAGING/LAB RESULTS: None TOXICITY ASSESSMENT (CTC v4.0): Fatigue:grade 2 - Fatigue not relieved by rest; limiting instrumental ADL Radiation Dermatitis: grade 0 - No symptoms Diarrhea:grade 0 - No symptoms Proctitis: grade 0 - No symptoms Urinary frequency: grade 1 - present Dysuria: grade 0 - No symptoms Urinary incontinence: grade 0 (No symptoms) Urinary retention: grade 0 - No symptoms Treatment chart checked: Yes Patient treatment site reviewed and verified:Yes Port films reviewed and current:Yes Medications started: None ASSESSMENT/PLAN: Clinically stable. Toxicity within expected parameters. Continue radiation treatment as planned. PSA and follow-up with Dr. Agosto on 12/09/22 for Lupron. Hussein Ordonez MD documented in this encounter [facility] 11-11-2022 Nurse Note Radiation Therapy - Nursing Note (OTV) PATIENT NAME: Sylvie Chiu PATIENT November 11, 2022 [facility] FACILITY/LOCATION: [place] NURSING NOTE TYPE: PROSTATE - MALE PELVIS Subjective Data Since starting the Lupron, I am hungry all the time, Hot flashes day and night, increased in arthritic pain and I feel weak. I do have frequent urination during the day. I am taking 1 Flomax every other day. The med works well when I take it but, I don't want to get addicted to it. Additional Data Do you want to see a Certified Nurse Operating Room? No Difficulty performing or completing routine daily living activities: No Status: Patient is male Nursing Assessment Fatigue: moderate; causing difficulty performing some activities Appetite: excellent Nutritional Intake: Regular oral intake. Weight Gain/Loss: Yes Ambulatory weight history: Last 6 Encounter Wt Readings: Date: Wt: 11/11/2022 148.1 kg (326 lb 8 oz) 09/04/2022 147 kg (324 lb) 08/11/2022 147.9 kg (326 lb) 07/29/2022 145.2 kg (320 lb) 06/24/2022 147.8 kg (325 lb 12.8 oz) 06/19/2022 145.2 kg (320 lb) Nausea:None Vomiting: None Bowel Function: normal bowel movements daily no bleeding Erythema/Hyperpigmentation:none Desquamation:none Rash:none Skin Care: None Skin Sensation: Within Normal Limits Focused Assessment PROSTATE - MALE PELVIS: Rectal bleeding: No. Rectal pain: No. Bladder function: urgency, frequency, incomplete emptying, retention. Urinary frequency (D/N): 10-12/0. Flomax 1 every other day Lupron injections continue SIGNED by: Ros Cheng RN documented in this encounter [facility] 11-07-2022 History of Presen t illness Narrative SOCIAL WORK Date of Service: Monday November 07, 2022 [facility] Assistant Vice President (EVA) Rohini Cody met with Sylvie Chiu after his second radiation treatment to complete the initial social work assessment. Sylvie has been diagnosed with prostate cancer. SW introduced herself and reviewed [facility] supportive services, community transportation, and copay assistance if needed. SW provided the Patient Services sheet, the Coping and Distress handout, and the Cancer Answer Line. SW also provided information on [facility], and the [facility]. Sylvie reported that he has been coping well. SW encouraged him to call if psychosocial needs arise. At this time, social work service is declined/deferred based on: he is not interested. Please re-consult social work if any other psychosocial needs arise. PLAN: Follow up on an as needed basis CLARITA Oquendo documented in this encounter [facility] 10-23-2022 History of Presen t illness Narrative SYLVIE CHIU [id number] 10/23/2022 [facility] Department of Radiation Oncology [facility] RADIATION ONCOLOGY SIMULATION NOTE DATE OF SIMULATION: 10/23/2022 MACHINE: Zank CT DIAGNOSIS: Malignant neoplasm of prostate AREA: prostate PROTOCOL: None PATIENT POSITION: Supine. CONTRAST: None BLOCKING: Custom blocking to be determined at the time of treatment planning. FIELD ARRANGEMENT: Field arrangement will be determined after plan has been completed. A time-out was conducted and recorded by the therapist. CT scan was completed for target localization and planning. The patient is scheduled for a verification simulation on the treatment machine to ensure proper set-up and field arrangement is correct prior to the first treatment of primary and boost medina if applicable. Patient education will be completed per nursing. Electronically Signed Hussein Ordonez M.D. 33:21 PM documented in this encounter [facility] 09-26-2022 Miscellaneous Notes 1st-time treatment report. The patient is currently being seen for a non-oncology regimen. No navigator services are needed at this time. documented in this encounter [facility] 09-12-2022 Instructions Flynn Julian PA-C - 09/12/2022 10:26 AM EST Call [phone] to schedule your Right shoulder MRI After you have the imaging appointment call [phone] to schedule a phone call appointment with me. This appointment should be at least 2 days after the imaging is done in order to review the results and coordinate care. (Example: If MRI is October 07, make an appointment with me on the or later to discuss results). documented in this encounter [facility] 09-12-2022 History of Presen t illness Narrative CHIEF COMPLAINT: Sylvie Chiu is a 72 year old male who presents today for new evaluation of right shoulder pain. PAIN EVALUATION 09/12/2022 0940 Pain Level: 7 Pain Location: Shoulder-Right Description: Sharp;Aching;Burning Duration Units: Years Frequency: Continuous Intervention/Comfort measure: Medication HISTORY OF PRESENT ILLNESS: Sylvie is here for evaluation of chronic right shoulder pain with an acute exacerbation of discomfort a couple of weeks ago States that he has had shoulder surgery in the past and will intermittently still have chronic discomfort with certain movements and activities but he had an acute change recently where his range of motion was significantly limited both secondary to pain as well as him being unable to lift the shoulder Passive range of motion better than active and states that he has been using his left arm to move his right arm for certain activities Denies any known injury Has been taking Tylenol without much improvement and is unable to take NSAIDs REVIEW OF SYMPTOMS: Constitutional: patient denies any recent fever or significant change in weight Gastrointestinal: patient denies any current abdominal discomfort Musculoskeletal: as noted in the HPI Neurologic: as noted in the HPI SOCIAL HISTORY: Tobacco Use: 1 packs/day, for 20 years. 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 Vitals: There were no vitals taken for this visit. Skin: Skin color, texture, turgor normal, no suspicious rashes or lesions noted Cardiovascular: no signs of upper or lower extremity edema Psychiatric: mood and affect are appropriate, patient is oriented to time, place and person Neurologic: sensation is grossly intact Lymphatic: no asymetric limb swelling noted General Appearance: Well appearing, alert, in no acute distress, well-hydrated, and well nourished Respiratory: no respiratory distress, no audible wheezing, no labored breathing, symmetric thoracic excursion Musculoskeletal Examination: Examination of the right shoulder: Inspection: normal cervical posture, shoulder alignment, and no joint deformities or swelling noted Shoulder Range of Motion: Flexion: decreased at 100-50 degrees Abduction: limited at less than 90 degrees Apley scratch test (internal rotation): Right arm: patient able to reach to belt line Left arm: patient able to reach to L1 SC JOINT: no tenderness to palpation AC JOINT: no tenderness to palpation Scapula exam: normal examination of scapula with no dyskinetic motion noted Ai Test / Empty Can Test (supraspinatus): positive for pain with no weakness Resisted lateral rotation test (infraspinatus): positive for pain with no weakness Belly press test (subscapualris): positive for pain with no weakness Speed's test: normal exam with no pain elicited Hu test: global pain elicited which is nonspecific for this examination Neer test: global pain elicited which is nonspecific for this examination TTP over the anterior shoulder, inferior to the AC joint near the biceps groove without pain with bicep testing IMAGING: Final results and radiologist's interpretation, available in the [facility] health record. Images were reviewed with the patient/family members in the office today. My personal interpretation of the performed imaging is chronic degenerative changes. CLINICAL IMPRESSION / ASSESSMENT: (M67.911) Dysfunction of right rotator cuff (primary encounter diagnosis) RECOMMENDATION / PLAN: Sylvie's exam is clinically concerning for rotator cuff tear or severe tendinopathy/bursitis. He has passive range of motion is greater than his active range of motion however almost all movement and testing of the shoulder causes discomfort. He has had previous issues with rotator cuff tears in the past and has required surgery. He states he is unable to sleep due to the discomfort as well as any movements of the shoulder cause pain. When asking him to flex at the shoulder he is able to lift to approximately 60 degrees and then starts leaning back trying to get his shoulder higher. We discussed treatment options and I believe he will benefit from physical therapy. My concern is that he had told that he will tolerate physical therapy has almost any motions cause discomfort. He states he has had cortisone injections in the past and I believe that this is a reasonable treatment option to allow for him to tolerate physical therapy to prevent frozen shoulder or other complications while we wait for MRI. He will make a phone call appointment with me following his MRI to discuss results as well as his progress following the cortisone injection and physical therapy Follow up: after advanced imaging is complete to discuss results and next step in management Films prior to visit: MRI shoulder Verbal health education was given to patient. Patient verbalizes understanding and agrees with the treatment plan as detailed above. I spent a total of 30 minutes on the date of the service which included preparing to see the patient, [id number] patient care, completing clinical documentation, performing a medically appropriate examination, counseling and educating the patient/family/caregiver, ordering medications, tests, or procedures, and communicating results to the patient/family/caregiver. Flynn Julian PA-C, MPAS documented in this encounter [facility] 09-12-2022 History of Presen t illness Narrative Radiology Service Progress Note PATIENT NAME: Sylvie Chiu DATE OF SERVICE: September 12, 2022 TIME: 9:28 AM PATIENT IDENTITY VERIFICATION COMPLETED USING TWO (2) IDENTIFIERS: Name and Date of confirmed by patient verbally. FALL SCREENING: Has the patient had 2 falls in the last year or 1 fall with injury or currently using an Ambulatory Assistive Device (Walker, Cane, Wheelchair, Crutches, etc.)? No PATIENT GENDER DATA: Male PATIENT RELEVANT IMPLANT DATA REVIEWED: Not Applicable RADIOLOGY DEPARTMENT: General X-ray: Exam(s) Completed: Upper Extremity X-Ray(s): Shoulder, AP / TRUE AP / AXILLARY right PERIPHERAL IV DATA: Not applicable SIGNED BY: RT Tri(R) September 12, 2022 9:28 AM documented in this encounter [facility] 09-04-2022 History of Presen t illness Narrative Images from the original note were not included. [facility] [place] [facility] UR[facility] LOCATION: ESTABLISHED PATIENT PATIENT INFO: Sylvie Chiu 72 year old Chief Complaint: Prostate Cancer HPI 72 year old man with high-intermediate risk prostate cancer, [id number], Stage IVB, GG2, clinical Stage IIB [Bruce 3+4=7 (1 core), Bruce 3+3=6 (9 cores) (10/13 cores+); prostate MRI - enlarged pelvic - concern for inguinal LN/bone metastasis, high-risk Decipher test - 0.98; PSMA-PET negative for bone/LN metastasis] Met with rad onc and med onc. Here with . Decipher High Risk Features. 1-Duration: 2021 2-Location: prostate 3-Severity: N/A 4-Quality: Not applicable 5-Context: N/A 6-Timing: N/A 7-Modifying factors: No treatment prior to referral 8-Associated signs & symptoms: no additional symptoms PATHOLOGY: FINAL DIAGNOSIS A. Prostate, left base, biopsy: - Benign fibromuscular stroma; no prostatic glands are present. B. Prostate, left mid, biopsy: - Prostatic adenocarcinoma, Bruce score 3+3=6, grade group 1, involving 1 of 1 core (4 mm, 65%). C. Prostate, left apex, biopsy: - Prostatic adenocarcinoma, Bruce score 3+3=6, grade group 1, involving 1 of 1 core (1 mm, 25%). D. Prostate, left lateral base, biopsy: - Prostatic adenocarcinoma, Bruce score 3+4=7, grade group 2, involving 1 of 1 core (6 mm, 85%). - Bruce pattern 4 comprises approximately 10% of the carcinoma. - Small gland cribriform morphology is identified. - Atypical intraductal proliferation (AIP) is present. E. Prostate, left lateral mid, biopsy: - Prostatic adenocarcinoma, Bruce score 3+3=6, grade group 1, involving 1 of 1 core (2 mm, 50%). F. Prostate, left lateral apex, biopsy: - Prostatic adenocarcinoma, Samantha score 3+3=6, grade group 1, involving 1 of 1 core (1 mm, 30%). G. Prostate, right base, biopsy: - Benign prostate tissue. H. Prostate, right mid, biopsy: - Prostatic adenocarcinoma, Samantha score 3+3=6, grade group 1, involving 2 of 2 cores (1 mm, 30%; 1 mm, 20%) I. Prostate, right apex, biopsy: - Prostatic adenocarcinoma, Bruce score 3+3=6, grade group 1, involving 1 of 1 core (3 mm, 50%). J. Prostate, right lateral base, biopsy: - Benign prostate tissue. K. Prostate, right lateral mid, biopsy: - Prostatic adenocarcinoma, Bruce score 3+3=6, grade group 1, involving 1 of 1 core (1 mm, 10%). L.Prostate, right lateral apex, biopsy: - Prostatic adenocarcinoma, Bruce score 3+3=6, grade group 1, involving 1 of 1 core (2 mm, 30%). Prostate Cancer Biopsy Summary Number of cores examined: 13 Number of cores positive: 10 Highest Grade Group: 2 Highest % of core involvement: 85 % Cribriform pattern 4: Present, small gland Intraductal carcinoma: Suspicious Stripping Shovel Oiler tumor block to use for additional studies: D1 Decipher testing showed a high-risk score. LAB: WBC (k/uL) Date Value 10/04/2021 6.68 RBC (m/uL) Date Value 10/04/2021 4.50 Hemoglobin (g/dL) Date Value 10/04/2021 14.0 Hematocrit (%) Date Value 10/04/2021 43.3 MCV (fL) Date Value 10/04/2021 96.2 MCH (pG) Date Value 10/04/2021 31.1 MCHC (g/dL) Date Value 10/04/2021 32.3 RDW-CV (%) Date Value 10/04/2021 13.3 Platelet Count (k/uL) Date Value 10/04/2021 155 MPV (fL) Date Value 10/04/2021 11.0 Neut% (%) Date Value 10/04/2021 60.9 Lymph% (%) Date Value 10/04/2021 29.0 [place]% (%) Date Value 10/04/2021 6.7 Eosin% (%) Date Value 10/04/2021 2.4 Baso% (%) Date Value 10/04/2021 1.0 Abs Neut (ANC) (k/uL) Date Value 10/04/2021 4.06 Abs Lym (X10-3/UL) Date Value 03/22/2010 1.6 Abs [place] (k/uL) Date Value 10/04/2021 0.45 Abs Eosin (k/uL) Date Value 10/04/2021 0.16 Abs Baso (k/uL) Date Value 10/04/2021 0.07 Creatinine Date Value Ref Range Status 06/04/2022 1.03 0.73 - 1.22 mg/dL Final 10/04/2021 0.90 0.73 - 1.22 mg/dL Final 08/24/2018 0.87 0.73 - 1.22 mg/dL Final 07/01/2018 0.93 0.73 - 1.22 mg/dL Final PSA (ng/mL) Date Value 06/04/2022 5.50 10/18/2021 6.29 PSA Screening (NG/ML) Date Value 12/12/2008 2.4 URINE POC GLUCOSE UA (POCT) Negative 11/21/2021 BILIRUBIN UA (POCT) Negative 11/21/2021 KETONE UA (POCT) Negative 11/21/2021 SPECIFIC GRAVITY UA (POCT) 1.025 11/21/2021 HEMOGLOBIN/BLOOD UA (POCT) Negative 11/21/2021 PH UA (POCT) 6.0 11/21/2021 PROTEIN UA (POCT) Negative 11/21/2021 UROBILINOGEN UA (POCT) 0.2 11/21/2021 NITRITE UA (POCT) Negative 11/21/2021 LEUKOCYTES UA (POCT) Trace 11/21/2021 COLOR UA (POCT) Yellow 11/21/2021 CLARITY UA (POCT) Clear 11/21/2021 IMAGING: NM PET/CT PROSTATE WHOLE BODY IMAGING (Order [id number]) Patient Info Patient Name Sex Sylvie Dumont ([id number]) Male 1950 08/07/2022 10:44 AM - Radiology, Oru In Impression IMPRESSION: Head and neck: - No PSMA-expressing lesions suspicious for metastases. Chest: - No PSMA-expressing lesions suspicious for metastases. Abdomens and Pelvis: - PSMA-expressing lesions in the prostate is consistent with known neoplasm. - Nonspecific bilateral inguinal lymph nodes. Bones and soft tissues: - No PSMA-expressing lesions suspicious for metastases. - Non PSMA-expressing sclerotic lesions in the bone, follow-up is recommended. MRI PROSTATE WO/W IVCON (Order [id number]) Patient Info Patient Name Sex Sylvie Dumont ([id number]) Male 1950 07/21/2022 11:06 AM - Radiology, Oru In Impression IMPRESSION: 1. Large lesion seen left peripheral zone consistent with clinically significant prostate carcinoma (PIRADS 5). It bulges the capsule and compresses the adjacent neurovascular bundle. 2. Enlarged pelvic lymph nodes left side greater than right. Enlarged bilateral inguinal lymph nodes. 3. Several bone lesions raising concern for possible metastatic disease to bone. Number of targets created for MR/US fusion biopsy: Peripheral zone: 1 Transition zone: 0 CT Scan: CT PELVIS W IVCON (Order [id number]) Patient Info Patient Name Sex Sylvie Dumont ([id number]) Male 1950 06/09/2022 4:32 PM - Radiology, Oru In Impression IMPRESSION: No acute process is seen. Sclerotic bone densities, as described, possibly bone islands, metastatic disease not excluded. Bone Scan: NM BONE WHOLE BODY (Order [id number]) Patient Info Patient Name Sex Sylvie Dumont ([id number]) Male 1950 06/09/2022 12:39 PM - Radiology, Oru In Impression IMPRESSION: NO SCINTIGRAPHIC EVIDENCE FOR OSSEOUS METASTATIC DISEASE. DEGENERATIVE CHANGES, NOTED. I have independently reviewed films and my findings are the same. ALLERGIES: ALLERGIES Not on File MEDICATIONS: celecoxib (CELEBREX) 200 mg capsule Take 200 mg by mouth twice daily. iv contrast (will be provided with radiology test) MRI Prostate Inject, intravenously, once for 1 dose. No IV access, insert saline lock prior to the beginning of sedation, infusion, injection of imaging exam. Discontinue saline lock post exam. If Pt. has a central line or IVAD, may access for administration according to line specific nursing protocol. Once exam is complete flush line and de-access according to line specific nursing protocol in the MR contrast administration guidelines link. acetaminophen (TYLENOL) 325 mg tablet Take 650 mg by mouth as needed. BIPAP ASV Adaptive Servo-Ventilation (ASV) with end-expiratory pressure (EEP) of 9 cmH2O and variable pressure support of 3-10 cmH2O. mask (pt pref), chin strap, heated tubing & humidity, filters. Lifetime supplies. APRIL: G47.33. ALBUTEROL INHALATION Inhale 1 Inhalation as instructed as needed. hot humid weather lisinopril-hydrochlorothiazide (PRINZIDE,ZESTORETIC) 20-12.5 mg per tablet Take 1 tablet by mouth once daily. modafinil(PROVIGIL 200 MG TAB) Take one(1) tablet daily in the morning. pantoprazole (PROTONIX) 40 mg ORAL TbEC Take one(1) tablet daily. BIPAP Please supply patient with Full face mask, [employer] VIP [id number]. tamsulosin (FLOMAX) 0.4 mg Take 1 capsule by mouth once daily. 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 HEAD & NECK: No blurred vision or Sjogren's syndrome CARDIOVASCULAR: NO CHEST PAIN, PALPITATIONS, ANKLE EDEMA RESPIRATORY: No chronic cough, wheezing, dyspnea, hemoptysis. MUSCULOSKELETAL: NO CHRONIC BACK PAIN, ARTHRITIS, CHRONIC NECK PAIN SKIN: NO VARICOSE VEINS, RASH, ABNORMAL ITCHING BLOOD/LYMPHATIC: No easy bleeding, easy bruising, transfusion Hx NEUROLOGICAL: NO HEADACHES, NUMBNESS, SEIZURES, STROKE PSYCHIATRIC: No depression or inordinate anxiety The remainder of the ROS was negative. PHYSICAL EXAMINATION Ht 180.3 cm (5' 11) Wt (!) 147 kg (324 lb) BMI 45.19 kg/m General appearance: Well appearing, alert, in no acute distress, and well-hydrated, well nourished Skin: Skin color, texture, turgor normal, no suspicious rashes or lesions Head: Normocephalic, no masses, lesions, tenderness or abnormalities Abdomen: Normal abdominal exam, Abdomen soft, non-tender. Bowel sounds normal. No masses, organomegaly Genitourinary: MALE EXAM: Exam NOT Indicated PVR: NA IMPRESSION/PLAN: Bruce 7/6 Prostate Cancer Pathology reviewed. PSA 5.5 CT and bone scan negative. MRI prostate now with LAD and possible bone lesions. Dr. Ordonez in [place] has met with patient. All studies reviewed. Decipher High Risk Options reviewed. Proceed to ADT + IMRT with Dr. Ordonez Obtain approval for Lupron. I spent 30 minutes in the visit, with more than 50% of the total [id number] time of the visit in counseling / coordination of care. Vazquez Page DO JYOTHI documented in this encounter [facility] 08-11-2022 History of Presen t illness Narrative HISTORY OF PRESENT ILLNESS: Sylvie Chiu is a 72 year old male recent dx prostate cancer, here to discuss concurrent ADT with RT. He is still debating whether to have surgery or not. Reviewed his scans. CLINICAL IMPRESSION: [id number] prostate cancer, high risk on Decipher RECOMMENDATION/PLAN: 1. Would agree to adding GnRH agonist to EBRT given high risk disease, if EBRT is chosed modality of definitive therapy 2. We will touch base after he decides the way forward. Written and verbal health teaching given to patient, patient verbalizes understanding and agrees with treatment plan. 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 Treated with Itraconazole & Prednisone History of anal fissures Obesity APRIL (obstructive sleep apnea) 02/2007 Pain in joint, multiple sites Prostate cancer (HCC) Unspecified essential hypertension Unspecified glaucoma(365.9) PAST SURGICAL HISTORY Procedure Laterality Date ANKLE SURGERY HX Left left ankle fracture and piece of metal removed ARTHRP KNE CONDYLE&PLATU MEDIAL&LAT COMPARTMENTS Right 06/30/2018 Knee replacement, total BRONCHOSCOPY 09/17/2006 COLONOSCOPY 04/2016 MEDIASTINOSCOPY 10/02/2006 histoplasmosis NEUROPLASTY &/TRANSPOS MEDIAN NRV CARPAL TUNNE Right 11/28/2015 Carpal tunnel decomp PAST SURGICAL HISTORY OF lasik bilat.; 5 ops R eye and now blind R REMOVAL OF ANAL FISSURE ROTATOR CUFF REPAIR Right ROTATOR CUFF REPAIR Left TONSILLECTOMY & ADENOIDECTOMY <AGE 14 VASECTOMY UNI/BI SPX W/POSTOP SEMEN EXAMS FAMILY HISTORY Problem Relation Age of Onset Colon Cancer Father mgf other (hyperchol) Father other (cva) Father pgf, mgm other (heart dis) Father pgm Prostate Cancer Maternal Grandfather Social History Tobacco Use Smoking status: Former Packs/day: 1.00 Years: 20.00 Pack years: 20.00 Types: Cigarettes Smokeless tobacco: Never Tobacco comments: quit over 35 yrs ago Substance Use Topics Alcohol use: Yes Alcohol/week: 5.0 - 30.0 standard drinks Types: 2 - 3 Cans of Beer (12oz) per week Drug use: No ALLERGIES: ALLERGIES Not on File CURRENT OUTPATIENT MEDICATIONS: tamsulosin (FLOMAX) 0.4 mg Take 1 capsule by mouth once daily. 30 minutes after meal celecoxib (CELEBREX) 200 mg capsule Take 200 mg by mouth twice daily. iv contrast (will be provided with radiology test) MRI Prostate Inject, intravenously, once for 1 dose. No IV access, insert saline lock prior to the beginning of sedation, infusion, injection of imaging exam. Discontinue saline lock post exam. If Pt. has a central line or IVAD, may access for administration according to line specific nursing protocol. Once exam is complete flush line and de-access according to line specific nursing protocol in the MR contrast administration guidelines link. acetaminophen (TYLENOL) 325 mg tablet Take 650 mg by mouth as needed. BIPAP ASV Adaptive Servo-Ventilation (ASV) with end-expiratory pressure (EEP) of 9 cmH2O and variable pressure support of 3-10 cmH2O. mask (pt pref), chin strap, heated tubing & humidity, filters. Lifetime supplies. APRIL: G47.33. ALBUTEROL INHALATION Inhale 1 Inhalation as instructed as needed. hot humid weather lisinopril-hydrochlorothiazide (PRINZIDE,ZESTORETIC) 20-12.5 mg per tablet Take 1 tablet by mouth once daily. modafinil(PROVIGIL 200 MG TAB) Take one(1) tablet daily in the morning. pantoprazole (PROTONIX) 40 mg ORAL TbEC Take one(1) tablet daily. BIPAP Please supply patient with Full face mask, [employer] VIP [id number]. REVIEW OF SYSTEMS: GENERAL: No fever, night sweats, weight loss or malaise. All other reviewed and negative other than HPI. PHYSICAL EXAMINATION: VITAL SIGNS: BP 144/76[right arm[ Pulse 73 Temp 98 Resp 16[room air at rest[ Ht 5' 10.945[verified with TREY BURRELL[ (1.80m) Wt 326 lb (147.9kg) SpO2 97% BMI 45.54 kg/(m^2). GENERAL APPEARANCE: Well appearing, in no acute distress, alert and oriented x3, well-hydrated, well nourished. I spent a total of 45 minutes on the date of the service which included preparing to see the patient, [id number] patient care, completing clinical documentation, obtaining and/or reviewing separately obtained history, counseling and educating the patient/family/caregiver, communicating with other HCPs (not separately reported), independently interpreting results (not separately reported), and communicating results to the patient/family/caregiver. Electronically Signed: Rickie Agosto MD August 11, 2022 3:42 PM documented in this encounter [facility] 08-11-2022 Nurse Note Images from the original note were not included. Radiation Therapy - Nursing Note (Follow-up) PATIENT NAME: Sylvie Chiu PATIENT August 11, 2022 [facility] FACILITY/LOCATION: [place] Reason for visit: Follow up to discuss treatment options. Subjective Data I am here to further discuss recommended treatment after the completion of all my scans. I just saw Dr. Agosto and he said 2 years of the Lupron with radiation treatments. I am unsure of what to do. Additional Data Do you want to see a Certified Nurse Operating Room? No Difficulty performing or completing routine daily living activities: No Nursing Assessment Fatigue: increased fatigue over baseline but not altering normal activities Appetite: good Weight Gain/Loss: No Last 6 Encounter Wt Readings: Date: Wt: 08/11/2022 147.9 kg (326 lb) 07/29/2022 145.2 kg (320 lb) 06/24/2022 147.8 kg (325 lb 12.8 oz) 06/19/2022 145.2 kg (320 lb) 05/08/2022 146.1 kg (322 lb) 11/21/2021 147 kg (324 lb) Bowel Function: normal bowel movements Bone Pain: moderate pain: pain or analgesics interfering with function, but not interfering with activities of daily living no changes from his baseline he reported Focused Assessment Here to review recent imaging results. SIGNED by: Ros Cheng RN documented in this encounter [facility] 08-11-2022 History of Presen t illness Narrative Images from the original note were not included. Radiation Oncology - Follow Up Note PATIENT NAME: Sylvie Chiu PATIENT DIAGNOSIS: 72 year old man with high-intermediate risk prostate cancer, [id number], Stage IVB, GG2, clinical Stage IIB [Bruce 3+4=7 (1 core), Samantha 3+3=6 (9 cores) (10/13 cores+); prostate MRI - enlarged pelvic - concern for inguinal LN/bone metastasis, high-risk Decipher test - 0.98; PSMA-PET negative for bone/LN metastasis] INTERVAL HISTORY: Mr. Chiu has a history of BPH managed with tamsulosin. He is noted to have an elevated PSA of 6.29 ng/mL on 10/18/2021. Repeat PSA on 06/04/2022 was 5.5 ng/mL. No prostate nodularity was present on MANJU. Prostate biopsy on 05/08/22 showed adenocarcinoma, Bruce 3+4=7 (1 core), Samantha 3+3=6 (9 cores) (10/13 cores+). CT of the pelvis and bone scan on 06/09/22 showed no metastatic disease. MRI showed evidence of bone metastasis (right femoral neck, right iliac, right posterior acetabulum), enlarged pelvic and bilateral inguinal lymph nodes, and disease at the left peripheral zone (PIRADS 5) bulging the capsule, compressing the adjacent neurovascular bundle. Decipher testing showed a high-risk score (below). PSMA-PET/CT on 08/07/22 showed no evidence of bone or lymph node metastasis. PSMA-expression lesions were noted in the prostate consistent with the known prostate cancer. He reports no changes to baseline /GI issues. PSA HISTORY: PSA (ng/mL) Date Value 06/04/2022 5.50 10/18/2021 6.29 PSA Screening (NG/ML) Date Value 12/12/2008 2.4 ALLERGIES Not on File tamsulosin (FLOMAX) 0.4 mg Take 1 capsule by mouth once daily. 30 minutes after meal celecoxib (CELEBREX) 200 mg capsule Take 200 mg by mouth twice daily. iv contrast (will be provided with radiology test) MRI Prostate Inject, intravenously, once for 1 dose. No IV access, insert saline lock prior to the beginning of sedation, infusion, injection of imaging exam. Discontinue saline lock post exam. If Pt. has a central line or IVAD, may access for administration according to line specific nursing protocol. Once exam is complete flush line and de-access according to line specific nursing protocol in the MR contrast administration guidelines link. acetaminophen (TYLENOL) 325 mg tablet Take 650 mg by mouth as needed. BIPAP ASV Adaptive Servo-Ventilation (ASV) with end-expiratory pressure (EEP) of 9 cmH2O and variable pressure support of 3-10 cmH2O. mask (pt pref), chin strap, heated tubing & humidity, filters. Lifetime supplies. APRIL: G47.33. ALBUTEROL INHALATION Inhale 1 Inhalation as instructed as needed. hot humid weather lisinopril-hydrochlorothiazide (PRINZIDE,ZESTORETIC) 20-12.5 mg per tablet Take 1 tablet by mouth once daily. modafinil(PROVIGIL 200 MG TAB) Take one(1) tablet daily in the morning. pantoprazole (PROTONIX) 40 mg ORAL TbEC Take one(1) tablet daily. BIPAP Please supply patient with Full face mask, [employer] VIP [id number]. PHYSICAL EXAM: KPS: 80 General Appearance: Obese man. Alert and oriented. No acute distress. Rectal exam is deferred. 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 We discussed surgery, IMRT (28 fx, prostate/seminal vesicles/pelvic lymph nodes) with ADT, prostate brachytherapy monotherapy. He met with Dr. Agosto today.. Given his high decipher score, I would lean toward incorporating ADT in his treatment. Given his anatomy and disease characteristics (apical extension displacing neurovascular bundle), I am concerned of his ability to tolerate surgery and have an R0 resection. He would like time over the with his family to think about his options. He will call my office once he is determined what he wants to do. He does have an appointment with Dr. Page on August which could be kept or canceled depending on what he is interested in doing. Approximately 40 minutes were spent with the patient, >50% of which was spent on treatment counseling. Signed by: Hussein Ordonez MD cc: Norma Davies ([facility]) [address] [place] [address] DO Rickie Dean MD documented in this encounter [facility] 08-07-2022 Note HNO ID: [id number] Author: RT Ronen(R) Service: Radiology Author Type: Technologist Type: Progress Notes Filed: 08/07/2022 8:14 AM Note Text: RADIOLOGY SERVICE PROGRESS NOTE SERVICE DATE: 08/07/2022 SERVICE TIME: 8:13 AM PATIENT IDENTITY VERIFICATION COMPLETED USING TWO (2) STANDARD IDENTIFIERS: Name and Date of confirmed by patient verbally FALL SCREENING: Has the patient had 2 falls in the last year or 1 fall with injury or currently using an Ambulatory Assistive Device (Walker, Cane, Wheelchair, Crutches, etc.)? No PATIENT GENDER DATA: .male : No ALLERGIES: Reviewed and unchanged MEDICATIONS REVIEWED: Yes PATIENT RELEVANT IMPLANT DATA REVIEWED: Not Applicable CREATININE: Creatinine Date Value Ref Range Status 06/04/2022 1.03 0.73 - 1.22 mg/dL Final 10/04/2021 0.90 0.73 - 1.22 mg/dL Final 08/24/2018 0.87 0.73 - 1.22 mg/dL Final Estimated Glomerular Filtration Rate Date Value Ref Range Status 06/04/2022 78 >=60 mL/min/1.73m? Final Comment: Estimated Glomerular Filtration Rate (eGFR) is calculated using the 2020 CKD-EPI creatinine equation. This equation utilizes serum creatinine, sex, and age as parameters. The creatinine assay has traceable calibration to isotope dilution-mass spectrometry. Refer to KDIGO guidelines for clinical interpretation. In patients with unstable renal function, e.g. those with acute kidney injury, the eGFR may not accurately reflect actual GFR. eGFR- Date Value Ref Range Status 10/04/2021 >60 Final P.O.C.T. RESULTS: N/A August 07, [address] PERFORMED: No IV SITE: Ambulatory: A peripheral IV was started in the Right antecubital site with a Angio cath: 24 gauge. POST EXAM PIV STATUS: Discontinued PROCEDURE TYPE: NM INJECT: PET/CT BODY SCAN. 10 mCi [id number]. No other medications given.. ADMINISTRATION TIME: 0758 JM PATIENT DISCHARGED TO: Ambulatory patient, left NM department area. A Diagnostic radioactive procedure has taken place, with no further precautions necessary other than routine body substance precautions. More information regarding radiation safety can be found using this link: [email or web address] SIGNATURE: RT Ronen(R) PATIENT NAME: Sylvie Chiu DATE: August 07, 2022 TIME: 8:13 AM PAGER/CONTACT #: [facility] 07-29-2022 Note HNO ID: [id number] Author: Vazquez Page, DO Service: ? Author Type: Physician Type: Progress Notes Filed: 07/29/2022 1:57 PM Note Text: [facility] [place] [facility] LOCATION: [address] [place] [address] ESTABLISHED PATIENT PATIENT INFO: Sylvie Chiu 72 year old Chief Complaint: Prostate Cancer HPI Completed MRI - suspicion for bone involvement. Bone scan negative previously. Some lymphadenopathy Here with . Decipher High Risk Features. 1-Duration: 2021 2-Location: prostate 3-Severity: N/A 4-Quality: Not applicable 5-Context: N/A 6-Timing: N/A 7-Modifying factors: No treatment prior to referral 8-Associated signs AND symptoms: no additional symptoms PATHOLOGY: FINAL DIAGNOSIS A. Prostate, left base, biopsy: - Benign fibromuscular stroma; no prostatic glands are present. B. Prostate, left mid, biopsy: - Prostatic adenocarcinoma, Samantha score 3+3=6, grade group 1, involving 1 of 1 core (4 mm, 65%). C. Prostate, left apex, biopsy: - Prostatic adenocarcinoma, Bruce score 3+3=6, grade group 1, involving 1 of 1 core (1 mm, 25%). D. Prostate, left lateral base, biopsy: - Prostatic adenocarcinoma, Samantha score 3+4=7, grade group 2, involving 1 of 1 core (6 mm, 85%). - Bruce pattern 4 comprises approximately 10% of the carcinoma. - Small gland cribriform morphology is identified. - Atypical intraductal proliferation (AIP) is present. E. Prostate, left lateral mid, biopsy: - Prostatic adenocarcinoma, Bruce score 3+3=6, grade group 1, involving 1 of 1 core (2 mm, 50%). F. Prostate, left lateral apex, biopsy: - Prostatic adenocarcinoma, Bruce score 3+3=6, grade group 1, involving 1 of 1 core (1 mm, 30%). G. Prostate, right base, biopsy: - Benign prostate tissue. H. Prostate, right mid, biopsy: - Prostatic adenocarcinoma, Samantha score 3+3=6, grade group 1, involving 2 of 2 cores (1 mm, 30%; 1 mm, 20%) I. Prostate, right apex, biopsy: - Prostatic adenocarcinoma, Bruce score 3+3=6, grade group 1, involving 1 of 1 core (3 mm, 50%). J. Prostate, right lateral base, biopsy: - Benign prostate tissue. K. Prostate, right lateral mid, biopsy: - Prostatic adenocarcinoma, Bruce score 3+3=6, grade group 1, involving 1 of 1 core (1 mm, 10%). L.Prostate, right lateral apex, biopsy: - Prostatic adenocarcinoma, Bruce score 3+3=6, grade group 1, involving 1 of 1 core (2 mm, 30%). Prostate Cancer Biopsy Summary Number of cores examined: 13 Number of cores positive: 10 Highest Grade Group: 2 Highest % of core involvement: 85 % Cribriform pattern 4: Present, small gland Intraductal carcinoma: Suspicious Stripping Shovel Oiler tumor block to use for additional studies: D1 Decipher testing showed a high-risk score. LAB: WBC (k/uL) Date Value 10/04/2021 6.68 RBC (m/uL) Date Value 10/04/2021 4.50 Hemoglobin (g/dL) Date Value 10/04/2021 14.0 Hematocrit (%) Date Value 10/04/2021 43.3 MCV (fL) Date Value 10/04/2021 96.2 MCH (pG) Date Value 10/04/2021 31.1 MCHC (g/dL) Date Value 10/04/2021 32.3 RDW-CV (%) Date Value 10/04/2021 13.3 Platelet Count (k/uL) Date Value 10/04/2021 155 MPV (fL) Date Value 10/04/2021 11.0 Neut% (%) Date Value 10/04/2021 60.9 Lymph% (%) Date Value 10/04/2021 29.0 [place]% (%) Date Value 10/04/2021 6.7 Eosin% (%) Date Value 10/04/2021 2.4 Baso% (%) Date Value 10/04/2021 1.0 Abs Neut (ANC) (k/uL) Date Value 10/04/2021 4.06 Abs Lym (X10-3/UL) Date Value 03/22/2010 1.6 Abs [place] (k/uL) Date Value 10/04/2021 0.45 Abs Eosin (k/uL) Date Value 10/04/2021 0.16 Abs Baso (k/uL) Date Value 10/04/2021 0.07 Creatinine Date Value Ref Range Status 06/04/2022 1.03 0.73 - 1.22 mg/dL Final 10/04/2021 0.90 0.73 - 1.22 mg/dL Final 08/24/2018 0.87 0.73 - 1.22 mg/dL Final 07/01/2018 0.93 0.73 - 1.22 mg/dL Final PSA (ng/mL) Date Value 06/04/2022 5.50 10/18/2021 6.29 PSA Screening (NG/ML) Date Value 12/12/2008 2.4 URINE POC GLUCOSE UA (POCT) Negative 11/21/2021 BILIRUBIN UA (POCT) Negative 11/21/2021 KETONE UA (POCT) Negative 11/21/2021 SPECIFIC GRAVITY UA (POCT) 1.025 11/21/2021 HEMOGLOBIN/BLOOD UA (POCT) Negative 11/21/2021 PH UA (POCT) 6.0 11/21/2021 PROTEIN UA (POCT) Negative 11/21/2021 UROBILINOGEN UA (POCT) 0.2 11/21/2021 NITRITE UA (POCT) Negative 11/21/2021 LEUKOCYTES UA (POCT) Trace 11/21/2021 COLOR UA (POCT) Yellow 11/21/2021 CLARITY UA (POCT) Clear 11/21/2021 IMAGING: MRI PROSTATE WO/W IVCON (Order [id number]) Patient Info Patient Name Sex Sylvie Chiu ([id number]) Male 1950 07/21/2022 11:06 AM - Radiology, Oru In Impression IMPRESSION: 1. Large lesion seen left peripheral zone consistent with clinically significant prostate carcinoma (PIRADS 5). It bulges the capsule and compresses the adjacent neurovascular bundle. 2. Enlarged pelvic l (more content not included)... [facility] 07-29-2022 History of Presen t illness Narrative Images from the original note were not included. [facility] [place] [facility] LOCATION: [address] [place] [address] ESTABLISHED PATIENT PATIENT INFO: Sylvie Chiu 72 year old Chief Complaint: Prostate Cancer HPI Completed MRI - suspicion for bone involvement. Bone scan negative previously. Some lymphadenopathy Here with . Decipher High Risk Features. 1-Duration: 2021 2-Location: prostate 3-Severity: N/A 4-Quality: Not applicable 5-Context: N/A 6-Timing: N/A 7-Modifying factors: No treatment prior to referral 8-Associated signs & symptoms: no additional symptoms PATHOLOGY: FINAL DIAGNOSIS A. Prostate, left base, biopsy: - Benign fibromuscular stroma; no prostatic glands are present. B. Prostate, left mid, biopsy: - Prostatic adenocarcinoma, Bruce score 3+3=6, grade group 1, involving 1 of 1 core (4 mm, 65%). C. Prostate, left apex, biopsy: - Prostatic adenocarcinoma, Samantha score 3+3=6, grade group 1, involving 1 of 1 core (1 mm, 25%). D. Prostate, left lateral base, biopsy: - Prostatic adenocarcinoma, Samantha score 3+4=7, grade group 2, involving 1 of 1 core (6 mm, 85%). - Bruce pattern 4 comprises approximately 10% of the carcinoma. - Small gland cribriform morphology is identified. - Atypical intraductal proliferation (AIP) is present. E. Prostate, left lateral mid, biopsy: - Prostatic adenocarcinoma, Samantha score 3+3=6, grade group 1, involving 1 of 1 core (2 mm, 50%). F. Prostate, left lateral apex, biopsy: - Prostatic adenocarcinoma, Bruce score 3+3=6, grade group 1, involving 1 of 1 core (1 mm, 30%). G. Prostate, right base, biopsy: - Benign prostate tissue. H. Prostate, right mid, biopsy: - Prostatic adenocarcinoma, Samantha score 3+3=6, grade group 1, involving 2 of 2 cores (1 mm, 30%; 1 mm, 20%) I. Prostate, right apex, biopsy: - Prostatic adenocarcinoma, Bruce score 3+3=6, grade group 1, involving 1 of 1 core (3 mm, 50%). J. Prostate, right lateral base, biopsy: - Benign prostate tissue. K. Prostate, right lateral mid, biopsy: - Prostatic adenocarcinoma, Bruce score 3+3=6, grade group 1, involving 1 of 1 core (1 mm, 10%). L.Prostate, right lateral apex, biopsy: - Prostatic adenocarcinoma, Samantha score 3+3=6, grade group 1, involving 1 of 1 core (2 mm, 30%). Prostate Cancer Biopsy Summary Number of cores examined: 13 Number of cores positive: 10 Highest Grade Group: 2 Highest % of core involvement: 85 % Cribriform pattern 4: Present, small gland Intraductal carcinoma: Suspicious Stripping Shovel Oiler tumor block to use for additional studies: D1 Decipher testing showed a high-risk score. LAB: WBC (k/uL) Date Value 10/04/2021 6.68 RBC (m/uL) Date Value 10/04/2021 4.50 Hemoglobin (g/dL) Date Value 10/04/2021 14.0 Hematocrit (%) Date Value 10/04/2021 43.3 MCV (fL) Date Value 10/04/2021 96.2 MCH (pG) Date Value 10/04/2021 31.1 MCHC (g/dL) Date Value 10/04/2021 32.3 RDW-CV (%) Date Value 10/04/2021 13.3 Platelet Count (k/uL) Date Value 10/04/2021 155 MPV (fL) Date Value 10/04/2021 11.0 Neut% (%) Date Value 10/04/2021 60.9 Lymph% (%) Date Value 10/04/2021 29.0 [place]% (%) Date Value 10/04/2021 6.7 Eosin% (%) Date Value 10/04/2021 2.4 Baso% (%) Date Value 10/04/2021 1.0 Abs Neut (ANC) (k/uL) Date Value 10/04/2021 4.06 Abs Lym (X10-3/UL) Date Value 03/22/2010 1.6 Abs [place] (k/uL) Date Value 10/04/2021 0.45 Abs Eosin (k/uL) Date Value 10/04/2021 0.16 Abs Baso (k/uL) Date Value 10/04/2021 0.07 Creatinine Date Value Ref Range Status 06/04/2022 1.03 0.73 - 1.22 mg/dL Final 10/04/2021 0.90 0.73 - 1.22 mg/dL Final 08/24/2018 0.87 0.73 - 1.22 mg/dL Final 07/01/2018 0.93 0.73 - 1.22 mg/dL Final PSA (ng/mL) Date Value 06/04/2022 5.50 10/18/2021 6.29 PSA Screening (NG/ML) Date Value 12/12/2008 2.4 URINE POC GLUCOSE UA (POCT) Negative 11/21/2021 BILIRUBIN UA (POCT) Negative 11/21/2021 KETONE UA (POCT) Negative 11/21/2021 SPECIFIC GRAVITY UA (POCT) 1.025 11/21/2021 HEMOGLOBIN/BLOOD UA (POCT) Negative 11/21/2021 PH UA (POCT) 6.0 11/21/2021 PROTEIN UA (POCT) Negative 11/21/2021 UROBILINOGEN UA (POCT) 0.2 11/21/2021 NITRITE UA (POCT) Negative 11/21/2021 LEUKOCYTES UA (POCT) Trace 11/21/2021 COLOR UA (POCT) Yellow 11/21/2021 CLARITY UA (POCT) Clear 11/21/2021 IMAGING: MRI PROSTATE WO/W IVCON (Order [id number]) Patient Info Patient Name Sex Cutlip, Sylvie R ([id number]) Male 1950 07/21/2022 11:06 AM - Radiology, Oru In Impression IMPRESSION: 1. Large lesion seen left peripheral zone consistent with clinically significant prostate carcinoma (PIRADS 5). It bulges the capsule and compresses the adjacent neurovascular bundle. 2. Enlarged pelvic lymph nodes left side greater than right. Enlarged bilateral inguinal lymph nodes. 3. Several bone lesions raising concern for possible metastatic disease to bone. Number of targets created for MR/US fusion biopsy: Peripheral zone: 1 Transition zone: 0 CT Scan: CT PELVIS W IVCON (Order [id number]) Patient Info Patient Name Sylvie Buckley ([id number]) Male 1950 06/09/2022 4:32 PM - Radiology, Oru In Impression IMPRESSION: No acute process is seen. Sclerotic bone densities, as described, possibly bone islands, metastatic disease not excluded. Bone Scan: NM BONE WHOLE BODY (Order [id number]) Patient Info Patient Name Sylvie Buckley ([id number]) Male 1950 06/09/2022 12:39 PM - Radiology, Oru In Impression IMPRESSION: NO SCINTIGRAPHIC EVIDENCE FOR OSSEOUS METASTATIC DISEASE. DEGENERATIVE CHANGES, NOTED. I have independently reviewed films and my findings are the same. ALLERGIES: ALLERGIES Not on File MEDICATIONS: tamsulosin (FLOMAX) 0.4 mg Take 1 capsule by mouth once daily. 30 minutes after meal celecoxib (CELEBREX) 200 mg capsule Take 200 mg by mouth twice daily. iv contrast (will be provided with radiology test) MRI Prostate Inject, intravenously, once for 1 dose. No IV access, insert saline lock prior to the beginning of sedation, infusion, injection of imaging exam. Discontinue saline lock post exam. If Pt. has a central line or IVAD, may access for administration according to line specific nursing protocol. Once exam is complete flush line and de-access according to line specific nursing protocol in the MR contrast administration guidelines link. acetaminophen (TYLENOL) 325 mg tablet Take 650 mg by mouth as needed. BIPAP ASV Adaptive Servo-Ventilation (ASV) with end-expiratory pressure (EEP) of 9 cmH2O and variable pressure support of 3-10 cmH2O. mask (pt pref), chin strap, heated tubing & humidity, filters. Lifetime supplies. APRIL: G47.33. ALBUTEROL INHALATION Inhale 1 Inhalation as instructed as needed. hot humid weather lisinopril-hydrochlorothiazide (PRINZIDE,ZESTORETIC) 20-12.5 mg per tablet Take 1 tablet by mouth once daily. modafinil(PROVIGIL 200 MG TAB) Take one(1) tablet daily in the morning. pantoprazole (PROTONIX) 40 mg ORAL TbEC Take one(1) tablet daily. BIPAP Please supply patient with Full face mask, [employer] VIP [id number]. 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 HEAD & NECK: No blurred vision or Sjogren's syndrome CARDIOVASCULAR: NO CHEST PAIN, PALPITATIONS, ANKLE EDEMA RESPIRATORY: No chronic cough, wheezing, dyspnea, hemoptysis. MUSCULOSKELETAL: NO CHRONIC BACK PAIN, ARTHRITIS, CHRONIC NECK PAIN SKIN: NO VARICOSE VEINS, RASH, ABNORMAL ITCHING BLOOD/LYMPHATIC: No easy bleeding, easy bruising, transfusion Hx NEUROLOGICAL: NO HEADACHES, NUMBNESS, SEIZURES, STROKE PSYCHIATRIC: No depression or inordinate anxiety The remainder of the ROS was negative. PHYSICAL EXAMINATION BP 128/76 Ht 180.3 cm (5' 11) Wt (!) 145.2 kg (320 lb) BMI 44.63 kg/m General appearance: Well appearing, alert, in no acute distress, and well-hydrated, well nourished Skin: Skin color, texture, turgor normal, no suspicious rashes or lesions Head: Normocephalic, no masses, lesions, tenderness or abnormalities Abdomen: Normal abdominal exam, Abdomen soft, non-tender. Bowel sounds normal. No masses, organomegaly Genitourinary: MALE EXAM: Exam NOT Indicated PVR: NA IMPRESSION/PLAN: Samantha 7/6 Prostate Cancer Pathology reviewed. PSA 5.5 CT and bone scan negative. MRI prostate now with LAD and possible bone lesions. Dr. Ordonez in [place] has met with patient and PSMA PET ordered and pending. Decipher High Risk Will talk to patient after PSMA PET. Options reviewed. I spent 30 minutes in the visit, with more than 50% of the total ibaw-an-wapr time of the visit in counseling / coordination of care. Vazquez Page DO MBA documented in this encounter [facility] 07-17-2022 Note HNO ID: [id number] Author: RT Jamari(R) Service: Radiology Author Type: Technologist Type: Progress Notes Filed: 07/17/2022 9:31 AM Note Text: Radiology Service Progress Note DATE OF SERVICE: July 17, 2022 TIME: 9:31 AM PATIENT IDENTITY VERIFICATION COMPLETED USING TWO (2) STANDARD IDENTIFIERS: Name and Date of confirmed by patient verbally and Name and Date of confirmed by identification band. FALL SCREENING: Has the patient had 2 falls in the last year or 1 fall with injury or currently using an Ambulatory Assistive Device (Walker, Cane, Wheelchair, Crutches, etc.)? No PATIENT GENDER DATA: Male PATIENT RELEVANT IMPLANT DATA REVIEWED: Not Applicable ALLERGIES: Reviewed and unchanged CONTRAST ALLERGY: NO. EXAM: MRI - CONTRAST TYPE: GROUP II PERIPHERAL IV DATA: Ambulatory: A peripheral IV was started in the Right antecubital site with a Angio cath: 22 gauge. RADIOLOGY DEPARTMENT: MR; Exam(s) Completed: Body: Prostate SIGNATURE: RT Jamari(R) PATIENT NAME: Sylvie Chiu DATE: July 17, 2022 TIME: 9:31 AM [facility] 07-14-2022 Miscellaneous Notes JACK 06/19/[address] Page JACK 11/07/[address] [place] NOV 07/29/[address] Page documented in this encounter [facility] 06-24-2022 Nurse Note Images from the original note were not included. Radiation Therapy - Nursing Note (Consult) PATIENT NAME: Sylvie Chiu PATIENT June 24, 2022 [facility] FACILITY/LOCATION: [place] Chief Complaint: Prostate cancer Reason for visit: Consult. Referring physician: Internal provider Dr. Page Subjective Data: I have a lot of questions about the treatment types. Additional Data Do you want to see a Certified Nurse Operating Room? No Are you interested in information about fertility? No Sexual Activity: Male: not asked was completing the AUA form Stress Scale: On a scale of 0 to 10, what number best describes how much distress you have experienced in the past week?(0 being no distress and 10 being extreme distress) increased with this dx Social work notified: no GENERAL INFORMATION: PREVIOUS CHEMOTHERAPY: no PREVIOUS RADIATION THERAPY: no PREVIOUS HORMONAL THERAPY: no NURSING ASSESSMENT: EYES: Blind - yes, right EARS: chronic tinnitus RESPIRATORY: shortness of breath and h/o Histoplasmosis CARDIOVASCULAR: Denies, Chest pain, and Palpitations GASTROINTESTINAL: denies, nausea/vomiting, change in bowel habits, blood in the stool, and daily BM has had colonoscopy h/o polyps GENITOURINARY: frequency day 4-5/night 0, difficulty starting a stream first am void until he takes his Flomax in Morning , denies leakage or incontinence INTEGUMENTARY: edema BLE recent BLE vein surgery procedure MUSCULOSKELETAL: arthritis NEUROLOGIC: orientation - person, place and time PSYCHIATRIC: sleep disturbance wears BPAP has CSA NUTRITION: Are you currently following any diet? No Have you had any unintentional weight loss? No Do you have any difficulty chewing or swallowing? No Dietary Intake: Regular diet without any changes CONSULTS: No consults at this time OTHER INFORMATION: Are you currently residing at home? Yes Do you receive homecare services? No Do you drive? Yes Is the patient interested in van services? Not Applicable Do you have medical equipment or oxygen in the home? 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 Yes - A person with a Durable Power of Molded Frames Assembler for Healthcare (DPOA-H) has been appointed - Yes There is a living will - Yes Assessed and policy reviewed. PATIENT EDUCATION: Topic: Radiation This education session included the patient and . Prior to initiation, barriers to learning and limitations were assessed. Readiness to learn: Cognitive ability: Alert and oriented Motivation to learn: Interested - wants to learn Patient learns best by: multiple methods Barriers to learning: None Family support: High - Very involved in pt care Learning response: Topic: Radiation Therapy Method of instruction: Individual instruction Written instruction - handouts Verbal instruction Supplemental Material: Individualized patient education folder given and reviewed. During this visit, the patient was educated on potential side effects related to treatment. Teach back method of education was performed. The patient and verbalized understanding. SIGNED by: Ros Cheng RN documented in this encounter [facility] 06-24-2022 History of Presen t illness Narrative Radiation Oncology - Prostate Cancer New Patient/Consult Note PATIENT NAME: Sylvie Chiu PATIENT REQUESTING PROVIDER: Vazquez Page DO DIAGNOSIS: 72 year old man with high-intermediate risk prostate cancer, [id number], GG2, clinical Stage IIB [Samantha 3+4=7 (1 core), Samantha 3+3=6 (9 cores) (10/13 cores+); prostate MRI and Decipher test pending] HPI: 72 year old male with prostate adenocarcinoma who presents for an opinion regarding the role of radiation therapy in the management of the patient's disease. Final recommendations will be communicated back to the requesting physician by way of the shared medical record, or letter to requesting physician via US mail. Mr. Chiu has a history of BPH managed with tamsulosin. He is noted to have an elevated PSA of 6.29 ng/mL on 10/18/2021. Repeat PSA on 06/04/2022 was 5.5 ng/mL. No prostate nodularity was present on MANJU. Prostate biopsy on 05/08/22 showed adenocarcinoma, Samantha 3+7=7 (1 core), Samantha 3+3=6 (9 cores) (10/13 cores+). CT of the pelvis and bone scan on 06/09/22 showed no metastatic disease. He met with Dr. Page and additional testing has been ordered (Decipher and MRI prostate). He was referred to discuss radiation therapy options. PSA history: PSA (ng/mL) Date Value 06/04/2022 5.50 10/18/2021 6.29 PSA Screening (NG/ML) Date Value 12/12/2008 2.4 Prior Radiation Therapy, Collagen Vascular Disease, or Inflammatory Bowel Disease: No Currently on Anticoagulation: No History of Hip Replacement: No History of Prior TURP: No ALLERGIES No Known Allergies celecoxib (CELEBREX) 200 mg capsule Take 200 mg by mouth twice daily. acetaminophen (TYLENOL) 325 mg tablet Take 650 mg by mouth as needed. BIPAP ASV Adaptive Servo-Ventilation (ASV) with end-expiratory pressure (EEP) of 9 cmH2O and variable pressure support of 3-10 cmH2O. mask (pt pref), chin strap, heated tubing & humidity, filters. Lifetime supplies. APRIL: G47.33. ALBUTEROL INHALATION Inhale 1 Inhalation as instructed as needed. hot humid weather lisinopril-hydrochlorothiazide (PRINZIDE,ZESTORETIC) 20-12.5 mg per tablet Take 1 tablet by mouth once daily. modafinil(PROVIGIL 200 MG TAB) Take one(1) tablet daily in the morning. pantoprazole (PROTONIX) 40 mg ORAL TbEC Take one(1) tablet daily. BIPAP Please supply patient with Full face mask, [employer] VIP [id number]. iv contrast (will be provided with radiology test) MRI Prostate Inject, intravenously, once for 1 dose. No IV access, insert saline lock prior to the beginning of sedation, infusion, injection of imaging exam. Discontinue saline lock post exam. If Pt. has a central line or IVAD, may access for administration according to line specific nursing protocol. Once exam is complete flush line and de-access according to line specific nursing protocol in the MR contrast administration guidelines link. tamsulosin (FLOMAX) 0.4 mg Take 1 capsule by mouth once daily. 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 History of anal fissures Obesity APRIL (obstructive sleep apnea) 02/2007 Pain in joint, multiple sites Prostate cancer (HCC) Unspecified essential hypertension Unspecified glaucoma(365.9) PAST SURGICAL HISTORY Procedure Laterality Date ANKLE SURGERY HX Left left ankle fracture and piece of metal removed ARTHRP KNE CONDYLE&PLATU MEDIAL&LAT COMPARTMENTS Right 06/30/2018 Knee replacement, total BRONCHOSCOPY 09/17/2006 COLONOSCOPY 04/2016 MEDIASTINOSCOPY 10/02/2006 histoplasmosis NEUROPLASTY &/TRANSPOS MEDIAN NRV CARPAL TUNNE Right 11/28/2015 Carpal tunnel decomp PAST SURGICAL HISTORY OF lasik bilat.; 5 ops R eye and now blind R REMOVAL OF ANAL FISSURE ROTATOR CUFF REPAIR Right ROTATOR CUFF REPAIR Left TONSILLECTOMY & ADENOIDECTOMY <AGE 14 VASECTOMY UNI/BI SPX W/POSTOP SEMEN EXAMS FAMILY HISTORY Problem Relation Age of Onset Colon Cancer Father mgf other (hyperchol) Father other (cva) Father pgf, mgm other (heart dis) Father pgm Prostate Cancer Maternal Grandfather Social History Tobacco Use Smoking status: Former Packs/day: 1.00 Years: 20.00 Pack years: 20.00 Types: Cigarettes Smokeless tobacco: Never Tobacco comments: quit over 35 yrs ago Substance Use Topics Alcohol use: Yes Alcohol/week: 5.0 - 30.0 standard drinks Types: 2 - 3 Cans of Beer (12oz) per week Drug use: No Occupation: Retired Residence: [place], [place] REVIEW OF SYSTEMS: GENERAL: Negative for weight loss, fevers, chills, or night sweats. 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 Negative for sudden vision or hearing changes. NECK: Negative for masses in the neck. RESPIRATORY: +BIPAP use. Negative for shortness of breath. CARDIAC: Negative for chest pain, palpitations, murmurs, or syncopal episodes. GI: 1 bm/day, +hemorrhoids. Negative for nausea, vomiting, diarrhea, constipation, blood per rectum, or melena. : +Left testicular pain, wakes him at night, intermittent, 5-6/10. D/N 4-5/0. Improved with Flomax. Issues are most in the morning. Negative for dysuria, hematuria or incontinence. MUSCULOSKELETAL: +Arthritis. Negative for limitations in movement, pain, or swelling. NEURO: Negative for dizziness, headache, weakness or numbness. HEMATOLOGIC: Negative for bleeding or easy bruising. SKIN: Negative for rashes or other skin changes. PHYSICAL EXAM: VS: Wt (!) 147.8 kg (325 lb 12.8 oz) BMI 42.98 kg/m KARNOFSKY PERFORMANCE STATUS: 90 General Appearance: Alert and oriented. No acute distress. HEENT: NCAT. Sclera anicteric. PERRL. EOMI. Neck: Normal ROM. No palpable cervical or supraclavicular adenopathy. Chest: No respiratory distress. Lungs clear to auscultation bilaterally. Heart: Regular rate and rhythm. Abdomen: Soft. Nontender. Nondistended. Musculoskeletal: No edema. Normal ROM in extremities. No bone or spine tenderness. Neuro: Speech fluent. Gait normal. No focal deficits. Skin: No rashes noted Lymphatics: No palpable lymphadenopathy. GENITOURINARY: Deferred exam RECTAL: Deferred exam RADIOLOGY/LABORATORY DATA: see HPI ASSESSMENT/PLAN: Prostate cancer (C61), 2019 NCCN Risk Group: Unfavorable Intermediate Risk Group Clinical State: Localized Cancer - New Diagnosis ACTIVE PROBLEM LIST Obstructive Sleep Apnea (Adult) (Pediatric) Degenerative Arthritis of Knee Carpal Tunnel Syndrome of Right Wrist Essential Hypertension April Treated With Bipap Gastroesophageal Reflux Disease Without Esophagitis Class 2 Obesity With Body Mass Index (Bmi) of 38.0 to 38.9 in Adult Cataract, Nuclear Sclerotic Senile History of Radial Keratotomy Hereditary and Idiopathic Peripheral Neuropathy Fissure in Ano Lgi Bleed Primary Osteoarthritis of Right Knee Varicose Veins of Both Lower Extremities S/P Total Knee Replacement Chronic Pain of Right Knee Bmi 40.0-44.9, Adult (Hcc) ASSESSMENT/PLAN: 72 year old man with high-intermediate risk prostate cancer, [id number], GG2, clinical Stage IIB [Samantha 3+4=7 (1 core), Bruce 3+3=6 (9 cores) (10/13 cores+); prostate MRI and Decipher test pending] The treatment options for prostate cancer including active surveillance, radical prostatectomy, brachytherapy, and external beam radiation were reviewed with the patient. Prostate MRI is scheduled for 08/25/22 and follow-up with Dr. Page on 09/04/22 (I will look to reschedule this MRI to sooner). I will regroup with him after MRI and and Decipher test. Moderate Hypofractionation (given BMI) was discussed (28 fractions), inclusion of pelvic lymph nodes/ADT depending on Decipher test. Possible enrollment to [facility] will be considered (depending on eligibility and interest). Approximately 60 minutes were spent with the patient, >50% of which was spent on treatment counseling. Signed by: Hussein Ordonez MD documented in this encounter [facility] 06-19-2022 History of Presen t illness Narrative Images from the original note were not included. [facility] [place] [facility] LOCATION: [address] [place] [address] ESTABLISHED PATIENT PATIENT INFO: Sylvie Chiu 72 year old Chief Complaint: Prostate Cancer HPI S/P prostate biopsy. No post biopsy issues. Here with . 1-Duration: 2021 2-Location: prostate 3-Severity: N/A 4-Quality: Not applicable 5-Context: N/A 6-Timing: N/A 7-Modifying factors: No treatment prior to referral 8-Associated signs & symptoms: no additional symptoms PATHOLOGY: FINAL DIAGNOSIS A. Prostate, left base, biopsy: - Benign fibromuscular stroma; no prostatic glands are present. B. Prostate, left mid, biopsy: - Prostatic adenocarcinoma, Samantha score 3+3=6, grade group 1, involving 1 of 1 core (4 mm, 65%). C. Prostate, left apex, biopsy: - Prostatic adenocarcinoma, Samantha score 3+3=6, grade group 1, involving 1 of 1 core (1 mm, 25%). D. Prostate, left lateral base, biopsy: - Prostatic adenocarcinoma, Bruce score 3+4=7, grade group 2, involving 1 of 1 core (6 mm, 85%). - Bruce pattern 4 comprises approximately 10% of the carcinoma. - Small gland cribriform morphology is identified. - Atypical intraductal proliferation (AIP) is present. E. Prostate, left lateral mid, biopsy: - Prostatic adenocarcinoma, Samantha score 3+3=6, grade group 1, involving 1 of 1 core (2 mm, 50%). F. Prostate, left lateral apex, biopsy: - Prostatic adenocarcinoma, Samantha score 3+3=6, grade group 1, involving 1 of 1 core (1 mm, 30%). G. Prostate, right base, biopsy: - Benign prostate tissue. H. Prostate, right mid, biopsy: - Prostatic adenocarcinoma, Samantha score 3+3=6, grade group 1, involving 2 of 2 cores (1 mm, 30%; 1 mm, 20%) I. Prostate, right apex, biopsy: - Prostatic adenocarcinoma, Samantha score 3+3=6, grade group 1, involving 1 of 1 core (3 mm, 50%). J. Prostate, right lateral base, biopsy: - Benign prostate tissue. K. Prostate, right lateral mid, biopsy: - Prostatic adenocarcinoma, Samantha score 3+3=6, grade group 1, involving 1 of 1 core (1 mm, 10%). L.Prostate, right lateral apex, biopsy: - Prostatic adenocarcinoma, Bruce score 3+3=6, grade group 1, involving 1 of 1 core (2 mm, 30%). Prostate Cancer Biopsy Summary Number of cores examined: 13 Number of cores positive: 10 Highest Grade Group: 2 Highest % of core involvement: 85 % Cribriform pattern 4: Present, small gland Intraductal carcinoma: Suspicious Stripping Shovel Oiler tumor block to use for additional studies: D1 LAB: WBC (k/uL) Date Value 10/04/2021 6.68 RBC (m/uL) Date Value 10/04/2021 4.50 Hemoglobin (g/dL) Date Value 10/04/2021 14.0 Hematocrit (%) Date Value 10/04/2021 43.3 MCV (fL) Date Value 10/04/2021 96.2 MCH (pG) Date Value 10/04/2021 31.1 MCHC (g/dL) Date Value 10/04/2021 32.3 RDW-CV (%) Date Value 10/04/2021 13.3 Platelet Count (k/uL) Date Value 10/04/2021 155 MPV (fL) Date Value 10/04/2021 11.0 Neut% (%) Date Value 10/04/2021 60.9 Lymph% (%) Date Value 10/04/2021 29.0 [place]% (%) Date Value 10/04/2021 6.7 Eosin% (%) Date Value 10/04/2021 2.4 Baso% (%) Date Value 10/04/2021 1.0 Abs Neut (ANC) (k/uL) Date Value 10/04/2021 4.06 Abs Lym (X10-3/UL) Date Value 03/22/2010 1.6 Abs [place] (k/uL) Date Value 10/04/2021 0.45 Abs Eosin (k/uL) Date Value 10/04/2021 0.16 Abs Baso (k/uL) Date Value 10/04/2021 0.07 Creatinine Date Value Ref Range Status 06/04/2022 1.03 0.73 - 1.22 mg/dL Final 10/04/2021 0.90 0.73 - 1.22 mg/dL Final 08/24/2018 0.87 0.73 - 1.22 mg/dL Final 07/01/2018 0.93 0.73 - 1.22 mg/dL Final PSA (ng/mL) Date Value 06/04/2022 5.50 10/18/2021 6.29 PSA Screening (NG/ML) Date Value 12/12/2008 2.4 URINE POC GLUCOSE UA (POCT) Negative 11/21/2021 BILIRUBIN UA (POCT) Negative 11/21/2021 KETONE UA (POCT) Negative 11/21/2021 SPECIFIC GRAVITY UA (POCT) 1.025 11/21/2021 HEMOGLOBIN/BLOOD UA (POCT) Negative 11/21/2021 PH UA (POCT) 6.0 11/21/2021 PROTEIN UA (POCT) Negative 11/21/2021 UROBILINOGEN UA (POCT) 0.2 11/21/2021 NITRITE UA (POCT) Negative 11/21/2021 LEUKOCYTES UA (POCT) Trace 11/21/2021 COLOR UA (POCT) Yellow 11/21/2021 CLARITY UA (POCT) Clear 11/21/2021 IMAGING: CT Scan: CT PELVIS W IVCON (Order [id number]) Patient Info Patient Name Sex Sylvie Dumont ([id number]) Male 1950 06/09/2022 4:32 PM - Radiology, Oru In Impression IMPRESSION: No acute process is seen. Sclerotic bone densities, as described, possibly bone islands, metastatic disease not excluded. Bone Scan: NM BONE WHOLE BODY (Order [id number]) Patient Info Patient Name Sex Sylvie Dumont ([id number]) Male 1950 06/09/2022 12:39 PM - Radiology, Oru In Impression IMPRESSION: NO SCINTIGRAPHIC EVIDENCE FOR OSSEOUS METASTATIC DISEASE. DEGENERATIVE CHANGES, NOTED. I have independently reviewed films and my findings are the same. ALLERGIES: ALLERGIES No Known Allergies MEDICATIONS: celecoxib (CELEBREX) 200 mg capsule Take 200 mg by mouth twice daily. tamsulosin (FLOMAX) 0.4 mg Take 1 capsule by mouth once daily. 30 minutes after meal acetaminophen (TYLENOL) 325 mg tablet Take 650 mg by mouth as needed. BIPAP ASV Adaptive Servo-Ventilation (ASV) with end-expiratory pressure (EEP) of 9 cmH2O and variable pressure support of 3-10 cmH2O. mask (pt pref), chin strap, heated tubing & humidity, filters. Lifetime supplies. APRIL: G47.33. ALBUTEROL INHALATION Inhale 1 Inhalation as instructed as needed. hot humid weather lisinopril-hydrochlorothiazide (PRINZIDE,ZESTORETIC) 20-12.5 mg per tablet Take 1 tablet by mouth once daily. modafinil(PROVIGIL 200 MG TAB) Take one(1) tablet daily in the morning. pantoprazole (PROTONIX) 40 mg ORAL TbEC Take one(1) tablet daily. BIPAP Please supply patient with Full face mask, FusionOps VIP [id number]. methylPREDNISolone (MEDROL, JOSE MANUEL,) 4 mg Dose-Pack As Instructed per package amoxicillin (POLYMOX, AMOXIL) 500 mg capsule Take four capsules one hour before dental procedure. rivaroxaban (XARELTO) 10 mg tablet Take 1 tablet by mouth once daily. oxyCODONE IR (ROXICODONE) 5 mg immediate release tablet Take 1 tablet by mouth every 4 hours as needed for Pain (post op acute pain) for up to 7 days. 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 HEAD & NECK: No blurred vision or Sjogren's syndrome CARDIOVASCULAR: NO CHEST PAIN, PALPITATIONS, ANKLE EDEMA RESPIRATORY: No chronic cough, wheezing, dyspnea, hemoptysis. MUSCULOSKELETAL: NO CHRONIC BACK PAIN, ARTHRITIS, CHRONIC NECK PAIN SKIN: NO VARICOSE VEINS, RASH, ABNORMAL ITCHING BLOOD/LYMPHATIC: No easy bleeding, easy bruising, transfusion Hx NEUROLOGICAL: NO HEADACHES, NUMBNESS, SEIZURES, STROKE PSYCHIATRIC: No depression or inordinate anxiety The remainder of the ROS was negative. PHYSICAL EXAMINATION Ht 185.4 cm (6' 1) Wt (!) 145.2 kg (320 lb) BMI 42.22 kg/m General appearance: Well appearing, alert, in no acute distress, and well-hydrated, well nourished Skin: Skin color, texture, turgor normal, no suspicious rashes or lesions Head: Normocephalic, no masses, lesions, tenderness or abnormalities Abdomen: Normal abdominal exam, Abdomen soft, non-tender. Bowel sounds normal. No masses, organomegaly Genitourinary: MALE EXAM: Exam NOT Indicated PVR: NA IMPRESSION/PLAN: Samantha 7/6 Prostate Cancer Pathology reviewed. PSA 5.5 CT and bone scan negative. Options reviewed. Will meet with Dr. Ordonez in [place] Considering surveillance, check Decipher and MRI prostate. I spent 30 minutes in the visit, with more than 50% of the total [id number] time of the visit in counseling / coordination of care. Vazquez Page DO MBA documented in this encounter [facility] 06-12-2022 Miscellaneous Notes There is no cancer on the bone scan or CT scan. We can move appointment up to discuss options if he wants documented in this encounter [facility] 06-09-2022 History of Presen t illness Narrative RADIOLOGY SERVICE PROGRESS NOTE SERVICE DATE: 06/09/2022 SERVICE TIME: 9:23 AM PATIENT IDENTITY VERIFICATION COMPLETED USING TWO (2) STANDARD IDENTIFIERS: Name and Date of confirmed by patient verbally and Name and Date of confirmed by identification band FALL SCREENING: Has the patient had 2 falls in the last year or 1 fall with injury or currently using an Ambulatory Assistive Device (Walker, Cane, Wheelchair, Crutches, etc.)? No PATIENT GENDER DATA: .male ALLERGIES: Reviewed and unchanged MEDICATIONS REVIEWED: Not applicable PATIENT RELEVANT IMPLANT DATA REVIEWED: Not Applicable CREATININE: Creatinine Date Value Ref Range Status 06/04/2022 1.03 0.73 - 1.22 mg/dL Final 10/04/2021 0.90 0.73 - 1.22 mg/dL Final 08/24/2018 0.87 0.73 - 1.22 mg/dL Final Estimated Glomerular Filtration Rate Date Value Ref Range Status 06/04/2022 78 >=60 mL/min/1.73m Final Comment: Estimated Glomerular Filtration Rate (eGFR) is calculated using the 2020 CKD-EPI creatinine equation. This equation utilizes serum creatinine, sex, and age as parameters. The creatinine assay has traceable calibration to isotope dilution-mass spectrometry. Refer to KDIGO guidelines for clinical interpretation. In patients with unstable renal function, e.g. those with acute kidney injury, the eGFR may not accurately reflect actual GFR. eGFR- Date Value Ref Range Status 10/04/2021 >60 Final P.O.C.T. RESULTS: N/A June 09, [address] PERFORMED: No IV SITE: Ambulatory: A peripheral IV was started in the Right antecubital site with a Angio cath: 20 gauge. POST EXAM PIV STATUS: Discontinued PROCEDURE TYPE: NM INJECT: Whole Body Bone Scan. 22.7 mCi Tc99m MDP. No other medications given.. ADMINISTRATION TIME: 8:22 PATIENT DISCHARGED TO: Ambulatory patient, left NM department area. A Diagnostic radioactive procedure has taken place, with no further precautions necessary other than routine body substance precautions. More information regarding radiation safety can be found using this link: [email or web address] SIGNATURE: CURT Trivedi PATIENT NAME: Sylvie Chiu DATE: June 09, 2022 MRN: [id number] TIME: 9:23 AM PAGER/CONTACT #: documented in this encounter [facility] 05-26-2022 Miscellaneous Notes This is all presumed stage 1 until we receive results from the bone scan and CT scan. documented in this encounter [facility] 05-19-2022 Miscellaneous Notes Please put in orders and I'll get him assisted. Thanks. ----- Message from Vazquez Page DO sent at 05/19/2022 1:36 AM EDT ----- Prostate cancer found. Needs CT and bone scan - then appt with me documented in this encounter [facility] 02-28-2022 Miscellaneous Notes Patient phones requesting refills as follows: PATIENT STATES HE IS OUT OF MEDICATION FOR THE WEEKEND. Pending Prescriptions Disp Refills TAMSULOSIN 0.4 MG CAPSULE 30 capsule 2 Sig: Take 1 capsule by mouth once daily. 30 minutes after meal DAVID: No Please review and advise. Simona Bermudez documented in this encounter [facility] 12-24-2021 History of Presen t illness Narrative Associated Order(s): Large Joint Arthro/Inj: L knee joint Post-Procedure Diagnose(s): Primary osteoarthritis of left knee HPI: Sylvie presents today for left knee pain. Patient previously seen by RACHEL Kennedy for same issue in 06/2020. He had a left knee cortisone injection at that time. He is requesting left knee steroid injection today. He denies changes in medical history. On exam, the left knee joint is cool to touch without sign of infection. Flexion is limited and is uncomfortable. Crepitation is present with ROM. Large Joint Arthro/Inj: L knee joint Informed Consent Consent Obtained: Verbal [place] Protocol A moment to CARE was completed. SIGN IN Personnel directly involved with the procedure wore the appropriate PPE. Special Equipment: N/A Patient/Surrogate Stated/Verified: Patient name, Date of , Relevant allergies and Intended procedure TIME OUT Intended patient and procedure match the source document(s). Consent documented and matches the intended procedure. Relevant labs, photos, and/or imaging studies have been reviewed. No relevant labs, photos, and/or imaging studies were applicable for review. Correct side/site marked and visible. Medications required for procedure verified. Fire risk assessed and interventions discussed. No implant(s) inserted. 12/24/2021 8:58 AM The procedure site was prepped in the usual sterile fashion. Site: L knee joint Medications: 12 mg betamethasone acetate-betamethasone sodium phosphate 6 mg/mL Anesthetics: 3 mL lidocaine (PF) 10 mg/mL (1 %) Outcome: Tolerated well, no immediate complications Post-injection instructions were reviewed with the patient and the patient voiced understanding of these instructions. SIGN OUT All specimen containers correctly labeled. All instruments, equipment, possible retained foreign bodies accounted for. Post-procedure follow-up management communicated and Plan of Care Visit completed when applicable Post injection care discussed. Follow up as needed James Barnes APRN.CNP December 24, 2021 8:59 AM documented in this encounter [facility] 12-24-2021 History of Presen t illness Narrative Radiology Service Progress Note PATIENT NAME: Sylvie Chiu MRN: [id number] DATE OF SERVICE: December 24, 2021 TIME: 7:35 AM PATIENT IDENTITY VERIFICATION COMPLETED USING TWO (2) IDENTIFIERS: Name and Date of confirmed by patient verbally. FALL SCREENING: Has the patient had 2 falls in the last year or 1 fall with injury or currently using an Ambulatory Assistive Device (Walker, Cane, Wheelchair, Crutches, etc.)? No PATIENT GENDER DATA: Male PATIENT RELEVANT IMPLANT DATA REVIEWED: Not Applicable RADIOLOGY DEPARTMENT: General X-ray: Exam(s) Completed: Lower Extremity X-Ray(s): Knee, AP / Lat / Tunne / Merchant Left and Wt. 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 11/14/2015 Trigeminal neuralgia of right side of face 05/3111/14/2015 Follow-up examination, following other surgery 0 12/16/2007 11/14/2015 Disorders of bursae and tend ons in shoulder region, unspecified 07/05/2007 11/14/2015 Pain in joint, shoulder region 07/05/2007 0 11/14/2015 documented as of this encounter (statuses as of 12/24/2021) [facility] History of Past illness Narrative* Problem Noted Date Resolved Date Primary localized osteoarthritis of right knee 0 06/08/2018 07/01/2018 Overview: Added automatically from request for surgery [id number] Pneumonia 10/31/2016 06/23/2018 Fever 10/29/2016 11/02/2016 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 Atypical facial pain 05/31/2015 11/14/2015 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 11/14/2015 Trigeminal neuralgia of right side of face 05/3111/14/2015 Follow-up examination, following other surgery 0 12/16/2007 11/14/2015 Disorders of bursae and tend ons in shoulder region, unspecified 07/05/2007 11/14/2015 Pain in joint, shoulder region 07/05/2007 0 11/14/2015 documented as of this encounter (statuses as of 12/25/2021) [facility] of Past illness Narrative* Problem Noted Date Resolved Date Primary localized osteoarthritis of right knee 0 06/08/2018 07/01/2018 Overview: Added automatically from request for surgery [id number] Pneumonia 10/31/2016 06/23/2018 Fever 10/29/2016 11/02/2016 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 Atypical facial pain 05/31/2015 11/14/2015 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 11/14/2015 Trigeminal neuralgia of right side of face 05/3111/14/2015 Follow-up examination, following other surgery 0 12/16/2007 11/14/2015 Disorders of bursae and tend ons in shoulder region, unspecified 07/05/2007 11/14/2015 Pain in joint, shoulder region 07/05/2007 0 11/14/2015 documented as of this encounter (statuses as of 03/04/2022) [facility] of [facility] Narrative* Problem Noted Date Resolved Date Primary localized osteoarthritis of right knee 0 06/08/2018 07/01/2018 Overview: Added automatically from request for surgery [id number] Pneumonia 10/31/2016 06/23/2018 Fever 10/29/2016 11/02/2016 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 Atypical facial pain 05/31/2015 11/14/2015 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 11/14/2015 Trigeminal neuralgia of right side of face 05/3111/14/2015 Follow-up examination, following other surgery 0 12/16/2007 11/14/2015 Disorders of bursae and tend ons in shoulder region, unspecified 07/05/2007 11/14/2015 Pain in joint, shoulder region 07/05/2007 0 11/14/2015 documented as of this encounter (statuses as of 05/19/2022) [facility] Narrative* Problem Noted Date Resolved Date Primary localized osteoarthritis of right knee 0 06/08/2018 07/01/2018 Overview: Added automatically from request for surgery [id number] Pneumonia 10/31/2016 06/23/2018 Fever 10/29/2016 11/02/2016 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 Atypical facial pain 05/31/2015 11/14/2015 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 11/14/2015 Trigeminal neuralgia of right side of face 05/3111/14/2015 Follow-up examination, following other surgery 0 12/16/2007 11/14/2015 Disorders of bursae and tend ons in shoulder region, unspecified 07/05/2007 11/14/2015 Pain in joint, shoulder region 07/05/2007 0 11/14/2015 documented as of this encounter (statuses as of 05/26/2022) [facility] Narrative* Problem Noted Date Resolved Date Primary localized osteoarthritis of right knee 0 06/08/2018 07/01/2018 Overview: Added automatically from request for surgery [id number] Pneumonia 10/31/2016 06/23/2018 Fever 10/29/2016 11/02/2016 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 Atypical facial pain 05/31/2015 11/14/2015 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 11/14/2015 Trigeminal neuralgia of right side of face 05/3111/14/2015 Follow-up examination, following other surgery 0 12/16/2007 11/14/2015 Disorders of bursae and tend ons in shoulder region, unspecified 07/05/2007 11/14/2015 Pain in joint, shoulder region 07/05/2007 0 11/14/2015 documented as of this encounter (statuses as of 06/10/2022) [facility]ative* Problem Noted Date Resolved Date Primary localized osteoarthritis of right knee 0 06/08/2018 07/01/2018 Overview: Added automatically from request for surgery [id number] Pneumonia 10/31/2016 06/23/2018 Fever 10/29/2016 11/02/2016 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 Atypical facial pain 05/31/2015 11/14/2015 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 11/14/2015 Trigeminal neuralgia of right side of face 05/3111/14/2015 Follow-up examination, following other surgery 0 12/16/2007 11/14/2015 Disorders of bursae and tend ons in shoulder region, unspecified 07/05/2007 11/14/2015 Pain in joint, shoulder region 07/05/2007 0 11/14/2015 documented as of this encounter (statuses as of 06/10/2022) [facility]* Problem Noted Date Resolved Date Primary localized osteoarthritis of right knee 0 06/08/2018 07/01/2018 Overview: Added automatically from request for surgery [id number] Pneumonia 10/31/2016 06/23/2018 Fever 10/29/2016 11/02/2016 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 Atypical facial pain 05/31/2015 11/14/2015 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 11/14/2015 Trigeminal neuralgia of right side of face 05/3111/14/2015 Follow-up examination, following other surgery 0 12/16/2007 11/14/2015 Disorders of bursae and tend ons in shoulder region, unspecified 07/05/2007 11/14/2015 Pain in joint, shoulder region 07/05/2007 0 11/14/2015 documented as of this encounter (statuses as of 06/10/2022) [facility]* Problem Noted Date Resolved Date Primary localized osteoarthritis of right knee 0 06/08/2018 07/01/2018 Overview: Added automatically from request for surgery [id number] Pneumonia 10/31/2016 06/23/2018 Fever 10/29/2016 11/02/2016 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 Atypical facial pain 05/31/2015 11/14/2015 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 11/14/2015 Trigeminal neuralgia of right side of face 05/3111/14/2015 Follow-up examination, following other surgery 0 12/16/2007 11/14/2015 Disorders of bursae and tend ons in shoulder region, unspecified 07/05/2007 11/14/2015 Pain in joint, shoulder region 07/05/2007 0 11/14/2015 documented as of this encounter (statuses as of 06/12/2022) [facility]* Problem Noted Date Resolved Date Primary localized osteoarthritis of right knee 0 06/08/2018 07/01/2018 Overview: Added automatically from request for surgery [id number] Pneumonia 10/31/2016 06/23/2018 Fever 10/29/2016 11/02/2016 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 Atypical facial pain 05/31/2015 11/14/2015 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 11/14/2015 Trigeminal neuralgia of right side of face 05/3111/14/2015 Follow-up examination, following other surgery 0 12/16/2007 11/14/2015 Disorders of bursae and tend ons in shoulder region, unspecified 07/05/2007 11/14/2015 Pain in joint, shoulder region 07/05/2007 0 11/14/2015 documented as of this encounter (statuses as of 06/19/2022) [facility]* Problem Noted Date Resolved Date Primary localized osteoarthritis of right knee 0 06/08/2018 07/01/2018 Overview: Added automatically from request for surgery [id number] Pneumonia 10/31/2016 06/23/2018 Fever 10/29/2016 11/02/2016 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 Atypical facial pain 05/31/2015 11/14/2015 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 11/14/2015 Trigeminal neuralgia of right side of face 05/3111/14/2015 Follow-up examination, following other surgery 0 12/16/2007 11/14/2015 Disorders of bursae and tend ons in shoulder region, unspecified 07/05/2007 11/14/2015 Pain in joint, shoulder region 07/05/2007 0 11/14/2015 documented as of this encounter (statuses as of 06/26/2022) [facility]* Problem Noted Date Resolved Date Primary localized osteoarthritis of right knee 0 06/08/2018 07/01/2018 Overview: Added automatically from request for surgery [id number] Pneumonia 10/31/2016 06/23/2018 Fever 10/29/2016 11/02/2016 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 Atypical facial pain 05/31/2015 11/14/2015 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 11/14/2015 Trigeminal neuralgia of right side of face 05/3111/14/2015 Follow-up examination, following other surgery 0 12/16/2007 11/14/2015 Disorders of bursae and tend ons in shoulder region, unspecified 07/05/2007 11/14/2015 Pain in joint, shoulder region 07/05/2007 0 11/14/2015 documented as of this encounter (statuses as of 07/14/2022) [facility]* Problem Noted Date Resolved Date Primary localized osteoarthritis of right knee 0 06/08/2018 07/01/2018 Overview: Added automatically from request for surgery [id number] Pneumonia 10/31/2016 06/23/2018 Fever 10/29/2016 11/02/2016 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 Atypical facial pain 05/31/2015 11/14/2015 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 11/14/2015 Trigeminal neuralgia of right side of face 05/3111/14/2015 Follow-up examination, following other surgery 0 12/16/2007 11/14/2015 Disorders of bursae and tend ons in shoulder region, unspecified 07/05/2007 11/14/2015 Pain in joint, shoulder region 07/05/2007 0 11/14/2015 documented as of this encounter (statuses as of 07/29/2022) [facility]2018 History of Past illness Narrative* Problem Noted Date Resolved Date Primary localized osteoarthritis of right knee 0 06/08/2018 07/01/2018 Overview: Added automatically from request for surgery [id number] Pneumonia 10/31/2016 06/23/2018 Fever 10/29/2016 11/02/2016 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 Atypical facial pain 05/31/2015 11/14/2015 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 11/14/2015 Trigeminal neuralgia of right side of face 05/3111/14/2015 Follow-up examination, following other surgery 0 12/16/2007 11/14/2015 Disorders of bursae and tend ons in shoulder region, unspecified 07/05/2007 11/14/2015 Pain in joint, shoulder region 07/05/2007 0 11/14/2015 documented as of this encounter (statuses as of 08/08/2022) [facility] History of Past illness Narrative* Problem Noted Date Resolved Date Primary localized osteoarthritis of right knee 0 06/08/2018 07/01/2018 Overview: Added automatically from request for surgery [id number] Pneumonia 10/31/2016 06/23/2018 Fever 10/29/2016 11/02/2016 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 Atypical facial pain 05/31/2015 11/14/2015 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 11/14/2015 Trigeminal neuralgia of right side of face 05/3111/14/2015 Follow-up examination, following other surgery 0 12/16/2007 11/14/2015 Disorders of bursae and tend ons in shoulder region, unspecified 07/05/2007 11/14/2015 Pain in joint, shoulder region 07/05/2007 0 11/14/2015 documented as of this encounter (statuses as of 08/12/2022) [facility] History of Past illness Narrative* Problem Noted Date Resolved Date Primary localized osteoarthritis of right knee 0 06/08/2018 07/01/2018 Overview: Added automatically from request for surgery [id number] Pneumonia 10/31/2016 06/23/2018 Fever 10/29/2016 11/02/2016 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 Atypical facial pain 05/31/2015 11/14/2015 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 11/14/2015 Trigeminal neuralgia of right side of face 05/3111/14/2015 Follow-up examination, following other surgery 0 12/16/2007 11/14/2015 Disorders of bursae and tend ons in shoulder region, unspecified 07/05/2007 11/14/2015 Pain in joint, shoulder region 07/05/2007 0 11/14/2015 documented as of this encounter (statuses as of 08/13/2022) [facility] History of Past illness Narrative* Problem Noted Date Resolved Date Primary localized osteoarthritis of right knee 0 06/08/2018 07/01/2018 Overview: Added automatically from request for surgery [id number] Pneumonia 10/31/2016 06/23/2018 Fever 10/29/2016 11/02/2016 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 Atypical facial pain 05/31/2015 11/14/2015 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 11/14/2015 Trigeminal neuralgia of right side of face 05/3111/14/2015 Follow-up examination, following other surgery 0 12/16/2007 11/14/2015 Disorders of bursae and tend ons in shoulder region, unspecified 07/05/2007 11/14/2015 Pain in joint, shoulder region 07/05/2007 0 11/14/2015 documented as of this encounter (statuses as of 09/04/2022) [facility] History of Past illness Narrative* Problem Noted Date Resolved Date Primary localized osteoarthritis of right knee 0 06/08/2018 07/01/2018 Overview: Added automatically from request for surgery [id number] Pneumonia 10/31/2016 06/23/2018 Fever 10/29/2016 11/02/2016 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 Atypical facial pain 05/31/2015 11/14/2015 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 11/14/2015 Trigeminal neuralgia of right side of face 05/3111/14/2015 Follow-up examination, following other surgery 0 12/16/2007 11/14/2015 Disorders of bursae and tend ons in shoulder region, unspecified 07/05/2007 11/14/2015 Pain in joint, shoulder region 07/05/2007 0 11/14/2015 documented as of this encounter (statuses as of 09/09/2022) [facility] History of Past illness Narrative* Problem Noted Date Resolved Date Primary localized osteoarthritis of right knee 0 06/08/2018 07/01/2018 Overview: Added automatically from request for surgery [id number] Pneumonia 10/31/2016 06/23/2018 Fever 10/29/2016 11/02/2016 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 Atypical facial pain 05/31/2015 11/14/2015 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 11/14/2015 Trigeminal neuralgia of right side of face 05/3111/14/2015 Follow-up examination, following other surgery 0 12/16/2007 11/14/2015 Disorders of bursae and tend ons in shoulder region, unspecified 07/05/2007 11/14/2015 Pain in joint, shoulder region 07/05/2007 0 11/14/2015 documented as of this encounter (statuses as of 09/12/2022) [facility] History of Past illness Narrative* Problem Noted Date Resolved Date Primary localized osteoarthritis of right knee 0 06/08/2018 07/01/2018 Overview: Added automatically from request for surgery [id number] Pneumonia 10/31/2016 06/23/2018 Fever 10/29/2016 11/02/2016 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 Atypical facial pain 05/31/2015 11/14/2015 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 11/14/2015 Trigeminal neuralgia of right side of face 05/3111/14/2015 Follow-up examination, following other surgery 0 12/16/2007 11/14/2015 Disorders of bursae and tend ons in shoulder region, unspecified 07/05/2007 11/14/2015 Pain in joint, shoulder region 07/05/2007 0 11/14/2015 documented as of this encounter (statuses as of 10/01/2022) [facility] History of Past illness Narrative* Problem Noted Date Resolved Date Primary localized osteoarthritis of right knee 0 06/08/2018 07/01/2018 Overview: Added automatically from request for surgery [id number] Pneumonia 10/31/2016 06/23/2018 Fever 10/29/2016 11/02/2016 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 Atypical facial pain 05/31/2015 11/14/2015 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 11/14/2015 Trigeminal neuralgia of right side of face 05/3111/14/2015 Follow-up examination, following other surgery 0 12/16/2007 11/14/2015 Disorders of bursae and tend ons in shoulder region, unspecified 07/05/2007 11/14/2015 Pain in joint, shoulder region 07/05/2007 0 11/14/2015 documented as of this encounter (statuses as of 10/23/2022) [facility] History of Past illness Narrative* Problem Noted Date Resolved Date Primary localized osteoarthritis of right knee 0 06/08/2018 07/01/2018 Overview: Added automatically from request for surgery [id number] Pneumonia 10/31/2016 06/23/2018 Fever 10/29/2016 11/02/2016 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 Atypical facial pain 05/31/2015 11/14/2015 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 11/14/2015 Trigeminal neuralgia of right side of face 05/3111/14/2015 Follow-up examination, following other surgery 0 12/16/2007 11/14/2015 Disorders of bursae and tend ons in shoulder region, unspecified 07/05/2007 11/14/2015 Pain in joint, shoulder region 07/05/2007 0 11/14/2015 documented as of this encounter (statuses as of 11/01/2022) [facility] History of Past illness Narrative* Problem Noted Date Resolved Date Primary localized osteoarthritis of right knee 0 06/08/2018 07/01/2018 Overview: Added automatically from request for surgery [id number] Pneumonia 10/31/2016 06/23/2018 Fever 10/29/2016 11/02/2016 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 Atypical facial pain 05/31/2015 11/14/2015 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 11/14/2015 Trigeminal neuralgia of right side of face 05/3111/14/2015 Follow-up examination, following other surgery 0 12/16/2007 11/14/2015 Disorders of bursae and tend ons in shoulder region, unspecified 07/05/2007 11/14/2015 Pain in joint, shoulder region 07/05/2007 0 11/14/2015 documented as of this encounter (statuses as of 11/07/2022) [facility] History of Past illness Narrative* Problem Noted Date Resolved Date Primary localized osteoarthritis of right knee 0 06/08/2018 07/01/2018 Overview: Added automatically from request for surgery [id number] Pneumonia 10/31/2016 06/23/2018 Fever 10/29/2016 11/02/2016 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 Atypical facial pain 05/31/2015 11/14/2015 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 11/14/2015 Trigeminal neuralgia of right side of face 05/3111/14/2015 Follow-up examination, following other surgery 0 12/16/2007 11/14/2015 Disorders of bursae and tend ons in shoulder region, unspecified 07/05/2007 11/14/2015 Pain in joint, shoulder region 07/05/2007 0 11/14/2015 documented as of this encounter (statuses as of 11/14/2022) [facility] History of Past illness Narrative* Problem Noted Date Resolved Date Primary localized osteoarthritis of right knee 0 06/08/2018 07/01/2018 Overview: Added automatically from request for surgery [id number] Pneumonia 10/31/2016 06/23/2018 Fever 10/29/2016 11/02/2016 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 Atypical facial pain 05/31/2015 11/14/2015 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 11/14/2015 Trigeminal neuralgia of right side of face 05/3111/14/2015 Follow-up examination, following other surgery 0 12/16/2007 11/14/2015 Disorders of bursae and tend ons in shoulder region, unspecified 07/05/2007 11/14/2015 Pain in joint, shoulder region 07/05/2007 0 11/14/2015 documented as of this encounter (statuses as of 11/19/2022) [facility] History of Past illness Narrative* Problem Noted Date Resolved Date Primary localized osteoarthritis of right knee 0 06/08/2018 07/01/2018 Overview: Added automatically from request for surgery [id number] Pneumonia 10/31/2016 06/23/2018 Fever 10/29/2016 11/02/2016 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 Atypical facial pain 05/31/2015 11/14/2015 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 11/14/2015 Trigeminal neuralgia of right side of face 05/3111/14/2015 Follow-up examination, following other surgery 0 12/16/2007 11/14/2015 Disorders of bursae and tend ons in shoulder region, unspecified 07/05/2007 11/14/2015 Pain in joint, shoulder region 07/05/2007 0 11/14/2015 documented as of this encounter (statuses as of 11/26/2022) [facility] History of Past illness Narrative* Problem Noted Date Resolved Date Primary localized osteoarthritis of right knee 0 06/08/2018 07/01/2018 Overview: Added automatically from request for surgery [id number] Pneumonia 10/31/2016 06/23/2018 Fever 10/29/2016 11/02/2016 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 Atypical facial pain 05/31/2015 11/14/2015 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 11/14/2015 Trigeminal neuralgia of right side of face 05/3111/14/2015 Follow-up examination, following other surgery 0 12/16/2007 11/14/2015 Disorders of bursae and tend ons in shoulder region, unspecified 07/05/2007 11/14/2015 Pain in joint, shoulder region 07/05/2007 0 11/14/2015 documented as of this encounter (statuses as of 12/02/2022) [facility] History of Past illness Narrative* Problem Noted Date Resolved Date Primary localized osteoarthritis of right knee 0 06/08/2018 07/01/2018 Overview: Added automatically from request for surgery [id number] Pneumonia 10/31/2016 06/23/2018 Fever 10/29/2016 11/02/2016 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 Atypical facial pain 05/31/2015 11/14/2015 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 11/14/2015 Trigeminal neuralgia of right side of face 05/3111/14/2015 Follow-up examination, following other surgery 0 12/16/2007 11/14/2015 Disorders of bursae and tend ons in shoulder region, unspecified 07/05/2007 11/14/2015 Pain in joint, shoulder region 07/05/2007 0 11/14/2015 documented as of this encounter (statuses as of 12/02/2022) [facility] History of Past illness Narrative* Problem Noted Date Resolved Date Primary localized osteoarthritis of right knee 0 06/08/2018 07/01/2018 Overview: Added automatically from request for surgery [id number] Pneumonia 10/31/2016 06/23/2018 Fever 10/29/2016 11/02/2016 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 Atypical facial pain 05/31/2015 11/14/2015 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 11/14/2015 Trigeminal neuralgia of right side of face 05/3111/14/2015 Follow-up examination, following other surgery 0 12/16/2007 11/14/2015 Disorders of bursae and tend ons in shoulder region, unspecified 07/05/2007 11/14/2015 Pain in joint, shoulder region 07/05/2007 0 11/14/2015 documented as of this encounter (statuses as of 12/03/2022) [facility] History of Past illness Narrative* Problem Noted Date Resolved Date Primary localized osteoarthritis of right knee 0 06/08/2018 07/01/2018 Overview: Added automatically from request for surgery [id number] Pneumonia 10/31/2016 06/23/2018 Fever 10/29/2016 11/02/2016 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 Atypical facial pain 05/31/2015 11/14/2015 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 11/14/2015 Trigeminal neuralgia of right side of face 05/3111/14/2015 Follow-up examination, following other surgery 0 12/16/2007 11/14/2015 Disorders of bursae and tend ons in shoulder region, unspecified 07/05/2007 11/14/2015 Pain in joint, shoulder region 07/05/2007 0 11/14/2015 documented as of this encounter (statuses as of 12/09/2022) [facility] History of Past illness Narrative* Problem Noted Date Resolved Date Primary localized osteoarthritis of right knee 0 06/08/2018 07/01/2018 Overview: Added automatically from request for surgery [id number] Pneumonia 10/31/2016 06/23/2018 Fever 10/29/2016 11/02/2016 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 Atypical facial pain 05/31/2015 11/14/2015 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 11/14/2015 Trigeminal neuralgia of right side of face 05/3111/14/2015 Follow-up examination, following other surgery 0 12/16/2007 11/14/2015 Disorders of bursae and tend ons in shoulder region, unspecified 07/05/2007 11/14/2015 Pain in joint, shoulder region 07/05/2007 0 11/14/2015 documented as of this encounter (statuses as of 12/09/2022) [facility] History of Past illness Narrative* Problem Noted Date Resolved Date Primary localized osteoarthritis of right knee 0 06/08/2018 07/01/2018 Overview: Added automatically from request for surgery [id number] Pneumonia 10/31/2016 06/23/2018 Fever 10/29/2016 11/02/2016 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 Atypical facial pain 05/31/2015 11/14/2015 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 11/14/2015 Trigeminal neuralgia of right side of face 05/3111/14/2015 Follow-up examination, following other surgery 0 12/16/2007 11/14/2015 Disorders of bursae and tend ons in shoulder region, unspecified 07/05/2007 11/14/2015 Pain in joint, shoulder region 07/05/2007 0 11/14/2015 documented as of this encounter (statuses as of 12/11/2022) [facility] History of Past illness Narrative* Problem Noted Date Resolved Date Primary localized osteoarthritis of right knee 0 06/08/2018 07/01/2018 Overview: Added automatically from request for surgery [id number] Pneumonia 10/31/2016 06/23/2018 Fever 10/29/2016 11/02/2016 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 Atypical facial pain 05/31/2015 11/14/2015 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 11/14/2015 Trigeminal neuralgia of right side of face 05/3111/14/2015 Follow-up examination, following other surgery 0 12/16/2007 11/14/2015 Disorders of bursae and tend ons in shoulder region, unspecified 07/05/2007 11/14/2015 Pain in joint, shoulder region 07/05/2007 0 11/14/2015 documented as of this encounter (statuses as of 12/22/2022) [facility] History of Past illness Narrative* Problem Noted Date Resolved Date Primary localized osteoarthritis of right knee 0 06/08/2018 07/01/2018 Overview: Added automatically from request for surgery [id number] Pneumonia 10/31/2016 06/23/2018 Fever 10/29/2016 11/02/2016 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 Atypical facial pain 05/31/2015 11/14/2015 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 11/14/2015 Trigeminal neuralgia of right side of face 05/3111/14/2015 Follow-up examination, following other surgery 0 12/16/2007 11/14/2015 Disorders of bursae and tend ons in shoulder region, unspecified 07/05/2007 11/14/2015 Pain in joint, shoulder region 07/05/2007 0 11/14/2015 documented as of this encounter (statuses as of 12/24/2022) [facility] of Past illness Narrative* Problem Noted Date Resolved Date Primary localized osteoarthritis of right knee 0 06/08/2018 07/01/2018 Overview: Added automatically from request for surgery [id number] Pneumonia 10/31/2016 06/23/2018 Fever 10/29/2016 11/02/2016 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 Atypical facial pain 05/31/2015 11/14/2015 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 11/14/2015 Trigeminal neuralgia of right side of face 05/3111/14/2015 Follow-up examination, following other surgery 0 12/16/2007 11/14/2015 Disorders of bursae and tend ons in shoulder region, unspecified 07/05/2007 11/14/2015 Pain in joint, shoulder region 07/05/2007 0 11/14/2015 documented as of this encounter (statuses as of 01/13/2023) [facility] Past [facility] Narrative* Problem Noted Date Resolved Date Primary localized osteoarthritis of right knee 0 06/08/2018 07/01/2018 Overview: Added automatically from request for surgery [id number] Pneumonia 10/31/2016 06/23/2018 Fever 10/29/2016 11/02/2016 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 Atypical facial pain 05/31/2015 11/14/2015 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 11/14/2015 Trigeminal neuralgia of right side of face 05/3111/14/2015 Follow-up examination, following other surgery 0 12/16/2007 11/14/2015 Disorders of bursae and tend ons in shoulder region, unspecified 07/05/2007 11/14/2015 Pain in joint, shoulder region 07/05/2007 0 11/14/2015 documented as of this encounter (statuses as of 01/23/2023) [facility] Narrative* Problem Noted Date Resolved Date Primary localized osteoarthritis of right knee 0 06/08/2018 07/01/2018 Overview: Added automatically from request for surgery [id number] Pneumonia 10/31/2016 06/23/2018 Fever 10/29/2016 11/02/2016 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 Atypical facial pain 05/31/2015 11/14/2015 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 11/14/2015 Trigeminal neuralgia of right side of face 05/3111/14/2015 Follow-up examination, following other surgery 0 12/16/2007 11/14/2015 Disorders of bursae and tend ons in shoulder region, unspecified 07/05/2007 11/14/2015 Pain in joint, shoulder region 07/05/2007 0 11/14/2015 documented as of this encounter (statuses as of 01/30/2023) [facility] Past [facility] Narrative* Problem Noted Date Resolved Date Primary localized osteoarthritis of right knee 0 06/08/2018 07/01/2018 Overview: Added automatically from request for surgery [id number] Pneumonia 10/31/2016 06/23/2018 Fever 10/29/2016 11/02/2016 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 Atypical facial pain 05/31/2015 11/14/2015 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 11/14/2015 Trigeminal neuralgia of right side of face 05/3111/14/2015 Follow-up examination, following other surgery 0 12/16/2007 11/14/2015 Disorders of bursae and tend ons in shoulder region, unspecified 07/05/2007 11/14/2015 Pain in joint, shoulder region 07/05/2007 0 11/14/2015 documented as of this encounter (statuses as of 02/09/2023) [facility] Narrative* Problem Noted Date Resolved Date Primary localized osteoarthritis of right knee 0 06/08/2018 07/01/2018 Overview: Added automatically from request for surgery [id number] Pneumonia 10/31/2016 06/23/2018 Fever 10/29/2016 11/02/2016 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 Atypical facial pain 05/31/2015 11/14/2015 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 11/14/2015 Trigeminal neuralgia of right side of face 05/3111/14/2015 Follow-up examination, following other surgery 0 12/16/2007 11/14/2015 Disorders of bursae and tend ons in shoulder region, unspecified 07/05/2007 11/14/2015 Pain in joint, shoulder region 07/05/2007 0 11/14/2015 documented as of this encounter (statuses as of 03/05/2023) [facility] Past [facility] Narrative* Problem Noted Date Resolved Date Primary localized osteoarthritis of right knee 0 06/08/2018 07/01/2018 Overview: Added automatically from request for surgery [id number] Pneumonia 10/31/2016 06/23/2018 Fever 10/29/2016 11/02/2016 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 Atypical facial pain 05/31/2015 11/14/2015 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 11/14/2015 Trigeminal neuralgia of right side of face 05/3111/14/2015 Follow-up examination, following other surgery 0 12/16/2007 11/14/2015 Disorders of bursae and tend ons in shoulder region, unspecified 07/05/2007 11/14/2015 Pain in joint, shoulder region 07/05/2007 0 11/14/2015 documented as of this encounter (statuses as of 03/13/2023) [facility]arrative* Problem Noted Date Diagnosed Date Resolved Date Primary localized osteoarthr itis of right knee 06/08/2018 07/01/2018 Overview: Added automatically from request for surgery [id number] Pneumonia 10/31/2016 06/23/2018 Fever 10/29/2016 11/02/2016 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 11/14/19 16 Atypical facial pain 05/31/2015 016 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2015 Trigeminal neuralgia of right side of face 05/31/2015 11/14/2015 Follow-up examination, [facility] other surgery 12/16/2007 11/14/2015 Disorders of bursae and tend ons in shoulder region, unspecified 07/05/2007 11/14/2015 Pain in joint, shoulder region 07/05/2007 11/14/2015 documented as of this encounter (statuses as of 04/10/2023) [facility]* Problem Noted Date Diagnosed Date Resolved Date Primary localized osteoarthr itis of right knee 06/08/2018 07/01/2018 Overview: Added automatically from request for surgery [id number] Pneumonia 10/31/2016 06/23/2018 Fever 10/29/2016 11/02/2016 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 11/14/19 16 Atypical facial pain 05/31/2015 016 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2015 Trigeminal neuralgia of right side of face 05/31/2015 11/14/2015 Follow-up examination, [facility] other surgery 12/16/2007 11/14/2015 Disorders of bursae and tend ons in shoulder region, unspecified 07/05/2007 11/14/2015 Pain in joint, shoulder region 07/05/2007 11/14/2015 documented as of this encounter (statuses as of 06/16/2023) [facility]arr[facility]* Problem Noted Date Diagnosed Date Resolved Date Primary localized osteoarthr itis of right knee 06/08/2018 07/01/2018 Overview: Added automatically from request for surgery [id number] Pneumonia 10/31/2016 06/23/2018 Fever 10/29/2016 11/02/2016 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 11/14/19 16 Atypical facial pain 05/31/2015 016 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2015 Trigeminal neuralgia of right side of face 05/31/2015 11/14/2015 Follow-up examination, [facility] other surgery 12/16/2007 11/14/2015 Disorders of bursae and tend ons in shoulder region, unspecified 07/05/2007 11/14/2015 Pain in joint, shoulder region 07/05/2007 11/14/2015 documented as of this encounter (statuses as of 07/09/2023) [facility]* Problem Noted Date Diagnosed Date Resolved Date Primary localized osteoarthr itis of right knee 06/08/2018 07/01/2018 Overview: Added automatically from request for surgery [id number] Pneumonia 10/31/2016 06/23/2018 Fever 10/29/2016 11/02/2016 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 11/14/19 16 Atypical facial pain 05/31/2015 016 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2015 Trigeminal neuralgia of right side of face 05/31/2015 11/14/2015 Follow-up examination, [facility] other surgery 12/16/2007 11/14/2015 Disorders of bursae and tend ons in shoulder region, unspecified 07/05/2007 11/14/2015 Pain in joint, shoulder region 07/05/2007 11/14/2015 documented as of this encounter (statuses as of 07/21/2023) [facility]* Problem Noted Date Diagnosed Date Resolved Date Primary localized osteoarthr itis of right knee 06/08/2018 07/01/2018 Overview: Added automatically from request for surgery [id number] Pneumonia 10/31/2016 06/23/2018 Fever 10/29/2016 11/02/2016 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 11/14/19 16 Atypical facial pain 05/31/2015 016 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2015 Trigeminal neuralgia of right side of face 05/31/2015 11/14/2015 Follow-up examination, [facility] [facility] 11/14/2015 Disorders of bursae and tend ons in shoulder region, unspecified 07/05/2007 11/14/2015 Pain in joint, shoulder region 07/05/2007 11/14/2015 documented as of this encounter (statuses as of 07/22/2023) [facility] History of Past illness Narrative* Problem Noted Date Diagnosed Date Resolved Date Primary localized osteoarthr itis of right knee 06/08/2018 07/01/2018 Overview: Added automatically from request for surgery [id number] Pneumonia 10/31/2016 06/23/2018 Fever 10/29/2016 11/02/2016 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 11/14/19 16 Atypical facial pain 05/31/2015 016 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2015 Trigeminal neuralgia of right side of face 05/31/2015 11/14/2015 [facility] 12/16/2007 11/14/2015 Disorders of bursae and tend ons in shoulder region, unspecified 07/05/2007 11/14/2015 Pain in joint, shoulder region 07/05/2007 11/14/2015 documented as of this encounter (statuses as of 12/15/2023) [facility] History of Past illness Narrative* Problem Noted Date Diagnosed Date Resolved Date Primary localized osteoarthr itis of right knee 06/08/2018 07/01/2018 Overview: Added automatically from request for surgery [id number] Pneumonia 10/31/2016 06/23/2018 Fever 10/29/2016 11/02/2016 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 11/14/19 16 Atypical facial pain 05/31/2015 016 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2015 Trigeminal neuralgia of right side of face 05/31/2015 11/14/2015 Follow-up examination, [facility] other surgery 12/16/2007 11/14/2015 Disorders of bursae and tend ons in shoulder region, unspecified 07/05/2007 11/14/2015 Pain in joint, shoulder region 07/05/2007 11/14/2015 documented as of this encounter (statuses as of 12/15/2023) [facility] History of Past illness Narrative* Problem Noted Date Diagnosed Date Resolved Date Primary localized osteoarthr itis of right knee 06/08/2018 07/01/2018 Overview: Added automatically from request for surgery [id number] Pneumonia 10/31/2016 06/23/2018 Fever 10/29/2016 11/02/2016 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 11/14/19 16 Atypical facial pain 05/31/2015 016 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2015 Trigeminal neuralgia of right side of face 05/31/2015 11/14/2015 [facility] 12/16/2007 11/14/2015 Disorders of bursae and tend ons in shoulder region, unspecified 07/05/2007 11/14/2015 Pain in joint, shoulder region 07/05/2007 11/14/2015 documented as of this encounter (statuses as of 12/17/2023) [facility] of Past illness Narrative* Problem Noted Date Diagnosed Date Resolved Date Primary localized osteoarthr itis of right knee 06/08/2018 07/01/2018 Overview: Added automatically from request for surgery [id number] Pneumonia 10/31/2016 06/23/2018 Fever 10/29/2016 11/02/2016 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 11/14/19 16 Atypical facial pain 05/31/2015 016 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2015 Trigeminal neuralgia of right side of face 05/31/2015 11/14/2015 Follow-up examination, [facility] other surgery 12/16/2007 11/14/2015 Disorders of bursae and tend ons in shoulder region, unspecified 07/05/2007 11/14/2015 Pain in joint, shoulder region 07/05/2007 11/14/2015 documented as of this encounter (statuses as of 12/22/2023) [facility] of [facility] Narrative* Problem Noted Date Diagnosed Date Resolved Date Primary localized osteoarthr itis of right knee 06/08/2018 07/01/2018 Overview: Added automatically from request for surgery [id number] Pneumonia 10/31/2016 06/23/2018 Fever 10/29/2016 11/02/2016 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 11/14/19 16 Atypical facial pain 05/31/2015 016 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2015 Trigeminal neuralgia of right side of face 05/31/2015 11/14/2015 Follow-up examination, [facility] other surgery 12/16/2007 11/14/2015 Disorders of bursae and tend ons in shoulder region, unspecified 07/05/2007 11/14/2015 Pain in joint, shoulder region 07/05/2007 11/14/2015 documented as of this encounter (statuses as of 01/12/2024) [facility] Narrative* Problem Noted Date Diagnosed Date Resolved Date Primary localized osteoarthr itis of right knee 06/08/2018 07/01/2018 Overview: Added automatically from request for surgery [id number] Pneumonia 10/31/2016 06/23/2018 Fever 10/29/2016 11/02/2016 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 11/14/19 16 Atypical facial pain 05/31/2015 016 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2015 Trigeminal neuralgia of right side of face 05/31/2015 11/14/2015 Follow-up examination, [facility] other surgery 12/16/2007 11/14/2015 Disorders of bursae and tend ons in shoulder region, unspecified 07/05/2007 11/14/2015 Pain in joint, shoulder region 07/05/2007 11/14/2015 documented as of this encounter (statuses as of 01/12/2024) [facility] Diagnosis Primary osteoarthritis of left knee- Primary Primary localized osteoarthrosis, lower leg [facility]* Diagnosis Pain Generalized [facility] Diagnosis Onset Date Resolution Status Bilateral hand swelling acut e Bronchitis acute Elevated PSA acute Maxillary sinusitis, acute a cute Osteoarthritis acute Hypertension chronic [facility] Work Phone: Evaluation note* Diagnosis Prostate cancer (HCC)- Primary Malignant neoplasm of prostate [facility] Diagnosis Prostate cancer (HCC) Malignant neoplasm of prostate [facility] Diagnosis Prostate cancer (HCC)- Primary Malignant neoplasm of prostate Benign prostatic hyperplasia with incomplete bladder emptying [facility] Diagnosis Testicular pain, left- Primary Unspecified disorder of male genital organs Prostate cancer (HCC) Malignant neoplasm of prostate [facility] Diagnosis Prostate cancer (HCC)- Primary Malignant neoplasm of prostate Benign prostatic hyperplasia with incomplete bladder emptying [facility] Diagnosis Prostate cancer (HCC) Malignant neoplasm of prostate [facility] Diagnosis Prostate cancer (HCC)- Primary Malignant neoplasm of prostate [facility] Prostate cancer (HCC)- Primary Malignant neoplasm of prostate Benign prostatic hyperplasia with incomplete bladder emptying [facility] Prostate cancer (HCC)- Primary Malignant neoplasm of prostate [facility] Diagnosis Dysfunction of right rotator cuff- Primary [facility] Diagnosis Prostate cancer (HCC)- Primary Malignant neoplasm of prostate [facility] Diagnosis Prostate cancer (HCC)- Primary Malignant neoplasm of prostate [facility] Diagnosis Prostate cancer (HCC)- Primary Malignant neoplasm of prostate [facility]* Diagnosis Leg swelling- Primary Swelling of limb Prostate cancer (HCC)- Primary Malignant neoplasm of prostate [facility] Diagnosis Left leg swelling Swelling of limb Prostate cancer (HCC)- Primary Malignant neoplasm of prostate [facility]* Diagnosis Prostate cancer (HCC)- Primary Malignant neoplasm of prostate [facility]* Diagnosis Prostate cancer (HCC)- Primary Malignant neoplasm of prostate [facility]* Diagnosis Prostate cancer (HCC)- Primary Malignant neoplasm of prostate Encounter for monitoring Lupron therapy Encounter for therapeutic drug monitoring Hot flash due to medication [facility]* Diagnosis Prostate cancer (HCC)- Primary Malignant neoplasm of prostate [facility]* Diagnosis Prostate cancer (HCC)- Primary Malignant neoplasm of prostate [facility]* Diagnosis Left hand pain- Primary Pain in limb [facility]* Diagnosis Primary osteoarthritis of left knee- Primary Primary localized osteoarthrosis, lower leg documented in this encounter [facility] note* Diagnosis Thumb pain, right- Primary Primary osteoarthritis of first carpometacarpal joint of left hand Primary localized osteoarthrosis, hand Peripheral vascular disease (HCC) Peripheral vascular disease, unspecified BMI 40.0-44.9, adult (HCC) Body Mass Index 40.0-44.9, adult documented in this encounter [facility] note* Diagnosis Prostate cancer (HCC)- Primary Malignant neoplasm of prostate Encounter for monitoring Lupron therapy Encounter for therapeutic drug monitoring Diarrhea, unspecified type Hypercalcemia [facility] this encounter [facility]* Diagnosis Onset Date Resolution Status Adverse effect of correct me dicinal substance properly administered acute Edema of both lower extremities acute 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 Osteoarthritis acute Elevated PSA acute GERD acute Pain, joint, multiple sites acute Hypertension chronic [facility] Work Phone: Evaluation note* Diagnosis 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 Primary osteoarthritis of left knee Primary localized osteoarthrosis, lower leg [facility] Encounter for follow-up surveillance of prostate cancer- Primary Unspecified follow-up examination [facility] Diagnosis Prostate cancer (HCC) Malignant neoplasm of prostate [facility] Diagnosis Pain in joint, multiple sites- Primary Generalized osteoarthritis Generalized osteoarthrosis, unspecified site Encounter for long-term (current) use of NSAIDs Encounter for long-term (current) use of non-steroidal anti-inflammatories [facility] Diagnosis Prostate cancer (HCC)- Primary Malignant neoplasm of prostate Bladder neck obstruction [facility] Diagnosis Dysuria- Primary [facility]* Diagnosis Prostate cancer (HCC) Malignant neoplasm of prostate Bladder neck obstruction BMI 40.0-44.9, adult (HCC) Body Mass Index 40.0-44.9, adult [facility] Diagnosis Pain in joint, multiple sites [facility] Diagnosis Inflammatory arthritis- Primary Unspecified inflammatory polyarthropathy Encounter for long-term (current) use of NSAIDs Encounter for long-term (current) use of non-steroidal anti-inflammatories [facility]* Diagnosis Prostate cancer (HCC)- Primary Malignant neoplasm of prostate Benign prostatic hyperplasia with incomplete bladder emptying History of prostate cancer Personal history of malignant neoplasm of prostate [facility]* Diagnosis Pain- Primary Generalized pain [facility] Diagnosis Carpal tunnel syndrome on left- Primary Carpal tunnel syndrome Carpal tunnel syndrome on left Carpal tunnel syndrome [facility] Diagnosis Carpal tunnel syndrome of left wrist- Primary Carpal tunnel syndrome Carpal tunnel syndrome on left Carpal tunnel syndrome [facility]* Diagnosis Carpal tunnel syndrome on left- Primary Carpal tunnel syndrome [facility]* Diagnosis Pain Generalized pain [facility]* Diagnosis Bladder neck obstruction [facility]* Diagnosis Pain in left hip Pain in joint, pelvic region and thigh [facility]* Diagnosis Left hand pain Pain in limb Thumb pain, right [facility]* Diagnosis Carpal tunnel syndrome on left- Primary Carpal tunnel syndrome [facility]* Diagnosis Leg swelling Swelling of limb [facility]* Diagnosis Pain Generalized pain [facility]* Diagnosis 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 Radiation cystitis Irradiation cystitis Radiation injury of bowel, sequela [facility]* Diagnosis Irradiation cystitis with hematuria- Primary Irradiation cystitis Other specified disorders of the skin and subcutaneous tissue related to radiation [facility]* Diagnosis Irradiation cystitis with hematuria- Primary Irradiation cystitis Other specified disorders of the skin and subcutaneous tissue related to radiation [facility]* Diagnosis Irradiation cystitis with hematuria- Primary Irradiation cystitis Other specified disorders of the skin and subcutaneous tissue related to radiation [facility]* Diagnosis Arthritis of carpometacarpal (CMC) joint of left thumb- Primary [facility] Diagnosis Irradiation cystitis with hematuria- Primary Irradiation cystitis Other specified disorders of the skin and subcutaneous tissue related to radiation [facility]* Diagnosis Irradiation cystitis with hematuria- Primary Irradiation cystitis Other specified disorders of the skin and subcutaneous tissue related to radiation [facility]* Diagnosis Irradiation cystitis with hematuria- Primary Irradiation cystitis Other specified disorders of the skin and subcutaneous tissue related to radiation [facility]* Diagnosis Irradiation cystitis with hematuria- Primary Irradiation cystitis Other specified disorders of the skin and subcutaneous tissue related to radiation [facility]* Diagnosis Arthritis of carpometacarpal (CMC) joint of left thumb- Primary Right hand pain Pain in limb [facility] Diagnosis Right hand pain Pain in limb [facility] Diagnosis Irradiation cystitis with hematuria- Primary Irradiation cystitis Other specified disorders of the skin and subcutaneous tissue related to radiation [facility]* Diagnosis Irradiation cystitis with hematuria- Primary Irradiation cystitis Other specified disorders of the skin and subcutaneous tissue related to radiation [facility] Diagnosis Irradiation cystitis with hematuria- Primary Irradiation cystitis Other specified disorders of the skin and subcutaneous tissue related to radiation [facility] Diagnosis Primary osteoarthritis of first carpometacarpal joint of right hand- Primary Primary localized osteoarthrosis, hand [facility] Diagnosis Irradiation cystitis with hematuria- Primary Irradiation cystitis Other specified disorders of the skin and subcutaneous tissue related to radiation [facility] Diagnosis Irradiation cystitis with hematuria- Primary Irradiation cystitis Other specified disorders of the skin and subcutaneous tissue related to radiation [facility] Diagnosis Irradiation cystitis with hematuria- Primary Irradiation cystitis Other specified disorders of the skin and subcutaneous tissue related to radiation [facility] Diagnosis Irradiation cystitis with hematuria- Primary Irradiation cystitis Other specified disorders of the skin and subcutaneous tissue related to radiation [facility] Diagnosis Irradiation cystitis with hematuria- Primary Irradiation cystitis Other specified disorders of the skin and subcutaneous tissue related to radiation [facility] Diagnosis Irradiation cystitis with hematuria- Primary Irradiation cystitis Other specified disorders of the skin and subcutaneous tissue related to radiation [facility] Diagnosis Irradiation cystitis with hematuria- Primary Irradiation cystitis Other specified disorders of the skin and subcutaneous tissue related to radiation [facility]* Diagnosis Irradiation cystitis with hematuria- Primary Irradiation cystitis Other specified disorders of the skin and subcutaneous tissue related to radiation [facility] Diagnosis Encounter for follow-up surveillance of prostate cancer- Primary Unspecified follow-up examination [facility] Diagnosis Encounter for follow-up surveillance of prostate cancer- Primary Unspecified follow-up examination [facility]* Diagnosis Arthritis of carpometacarpal (CMC) joint of left thumb- Primary [facility]* Diagnosis Status post total right knee replacement- Primary Primary osteoarthritis of left knee Primary localized osteoarthrosis, lower leg [facility] Diagnosis Left knee pain, unspecified chronicity [facility] Diagnostic Procedure Only (Routine) - Closed Specialty Diagnoses / Procedures Referred By Contac t Referred To Contact XR IMAGING Diagnoses Pain Procedures XR KNEE GENERAL 4V AP BOTH/PA BOTH/LAT/MERC LEFT RADIOLOGIC EXAM KNEE COMPLETE 4/MORE VIEWS James Barnes APRN.CNP [address] [address] Xr Imaging Referral ID Status Reason Start Date Expiration Date V isits Requested Visits Authorized [id number] Closed Auto-Generate d Referral 12/16/2021 01/12/2023 1 1 [facility] for referral (narrative)* Diagnostic Procedure Only (Routine) - Pending Review Specialty Diagnoses / Procedures Referred By Contac t Referred To Contact MOLECULAR & FUNCTIONAL IMAGING Diagnoses Prostate cancer (HCC) Procedures NM BONE WHOLE BODY BONE &/JOINT IMAGING WHOLE BODY Vazquez Page DO [address] [place] [address] Molecular & Functional Imaging [address] [place] [address] Referral ID Status Reason Start Date Expiration Date Visits Requested Visits Authorized [id number] Pending Review Auto-Generat ed Referral 05/19/2022 06/18/2023 1 1 * MRI/CT (Routine) - Pending Review Specialty Diagnoses / Procedures Referred By Contac t Referred To Contact CT IMAGING Diagnoses Prostate cancer (HCC) Procedures CT PELVIS W IVCON CT PELVIS W/CONTRAST MATERIAL Vazquez Page DO [address] [place] [address] Ct Imaging Referral ID Status Reason Start Date Expiration Date Visits Requested Visits Authorized [id number] Pending Review Auto-Generat ed Referral 05/19/2022 06/18/2023 1 1 [facility] for referral (narrative)* Diagnostic Procedure Only (Routine) - Closed Specialty Diagnoses / Procedures Referred By Contac t Referred To Contact MOLECULAR & FUNCTIONAL IMAGING Diagnoses Prostate cancer (HCC) Procedures NM BONE WHOLE BODY BONE &/JOINT IMAGING WHOLE BODY Vazquez Page DO [address] [place] [address] Molecular & Functional Imaging [address] [place] [address] Referral ID Status Reason Start Date Expiration Date V isits Requested Visits Authorized [id number] Closed Auto-Generate d Referral 05/19/2022 06/18/2023 1 1 [facility] for referral (narrative)* Diagnostic Procedure Only (Routine) - Closed Specialty Diagnoses / Procedures Referred By Contac t Referred To Contact US IMAGING Diagnoses Leg swelling Procedures US DVT LOWER LT DUP-SCAN XTR VEINS UNILATERAL/[place] [address] [place] [address] Us Imaging Referral ID Status Reason Start Date Expiration Date V isits Requested Visits Authorized [id number] Closed Auto-Generate d Referral 12/02/2022 01/01/2024 1 1 [facility] for referral (narrative)* Diagnostic Procedure Only (Routine) - Pending Review Specialty Diagnoses / Procedures Referred By Contac t Referred To Contact XR IMAGING Diagnoses Left hand pain Procedures XR HAND GENERAL 3V PA/LAT/OBL LEFT RADEX HAND MINIMUM 3 VIEWS Afsaneh Hansen PA-C [address] [place] [address] Xr Imaging Referral ID Status Reason Start Date Expiration Date Visits Requested Visits Authorized [id number] Pending Review Auto-Generat ed Referral 01/23/2023 02/22/2024 1 1 [facility] for referral (narrative)* Diagnostic Procedure Only (Routine) - Closed Specialty Diagnoses / Procedures Referred By Contac t Referred To Contact XR IMAGING Diagnoses Thumb pain, right Procedures XR HAND GENERAL 3V PA/LAT/OBL RIGHT RADEX HAND MINIMUM 3 VIEWS Afsaneh Hansen PA-C [address] [place] [address] Xr Imaging Referral ID Status Reason Start Date Expiration Date V isits Requested Visits Authorized [id number] Closed Auto-Generate d Referral 02/05/2023 03/06/2024 1 1 [facility] for referral (narrative)* Diagnostic Procedure Only (Routine) - Closed Specialty Diagnoses / Procedures Referred By Contac t Referred To Contact XR IMAGING Diagnoses Prostate cancer (HCC) Procedures XR LUMBAR GENERAL 3V AP/LAT/L5-S1 RADEX SPINE LUMBOSACRAL 2/3 [place] [address] [place] [id number] [place] [address] Referral ID Status Reason Start Date Expiration Date V isits Requested Visits Authorized [id number] Closed Auto-Generate d Referral 07/03/2023 08/01/2024 1 1 * Diagnostic Procedure Only (Routine) - Closed Specialty Diagnoses / Procedures Referred By Contac t Referred To Contact XR IMAGING Diagnoses Prostate cancer (HCC) Procedures XR SACRUM/COCCYX 3V AP/LAT RADEX SACRUM & COCCYX MINIMUM 2 [place] [address] [place] [id number] [place] [address] Referral ID Status Reason Start Date Expiration Date V isits Requested Visits Authorized [id number] Closed Auto-Generate d Referral 07/03/2023 08/01/2024 1 1 * Diagnostic Procedure Only (Routine) - Closed Specialty Diagnoses / Procedures Referred By Contac t Referred To Contact XR IMAGING Diagnoses Prostate cancer (HCC) Procedures XR PELVIS 3V AP/INLET/OUTLET RADIOLOGIC EXAM PELVIS COMPL MINIMUM 3 [place] [address] [place] [address] [place] [address] Referral ID Status Reason Start Date Expiration Date V isits Requested Visits Authorized [id number] Closed Auto-Generate d Referral 07/03/2023 08/01/2024 1 1 [facility] for referral (narrative)* Diagnostic Procedure Only (Routine) - Pending Review Specialty Diagnoses / Procedures Referred By Contac t Referred To Contact US IMAGING Diagnoses Pain in joint, multiple sites Procedures US HAND/WRIST SYNOVIAL SCREEN LEFT US COMPL JOINT R-T W/[place] [address] [place] [address] [place] [address] Referral ID Status Reason Start Date Expiration Date Visits Requested Visits Authorized [id number] Pending Review Auto-Generat ed Referral 12/14/2023 01/12/2025 1 1 * Diagnostic Procedure Only (Routine) - Pending Review Specialty Diagnoses / Procedures Referred By Contac t Referred To Contact US IMAGING Diagnoses Pain in joint, multiple sites Procedures US HAND/WRIST SYNOVIAL SCREEN RIGHT US COMPL JOINT R-T W/[place] [address] [place] [address] [place] [address] Referral ID Status Reason Start Date Expiration Date Visits Requested Visits Authorized [id number] Pending Review Auto-Generat ed Referral 12/14/2023 01/12/2025 1 1 [facility] for referral (narrative)* Diagnostic Procedure Only (Routine) - Closed Specialty Diagnoses / Procedures Referred By Contac t Referred To Contact US IMAGING Diagnoses Pain in joint, multiple sites Procedures US HAND/WRIST SYNOVIAL SCREEN LEFT US COMPL JOINT R-T W/[place] [address] [place] [id number] [place] [address] Referral ID Status Reason Start Date Expiration Date V isits Requested Visits Authorized [id number] Closed Auto-Generate d Referral 12/14/2023 01/12/2025 1 1 * Diagnostic Procedure Only (Routine) - Closed Specialty Diagnoses / Procedures Referred By Contac t Referred To Contact US IMAGING Diagnoses Pain in joint, multiple sites Procedures US HAND/WRIST SYNOVIAL SCREEN RIGHT US COMPL JOINT R-T W/[place] [address] [place] [id number] [place] [address] Referral ID Status Reason Start Date Expiration Date V isits Requested Visits Authorized [id number] Closed Auto-Generate d Referral 12/14/2023 01/12/2025 1 1 [facility] for referral (narrative)* Diagnostic Procedure Only (Routine) - Authorized Specialty Diagnoses / Procedures Referred By Contac t Referred To Contact XR IMAGING Diagnoses Pain Procedures XR WRIST GENERAL 3V PA/LAT/OBL LEFT RADEX WRIST COMPLETE MINIMUM 3 VIEWS Patria Scott PA-C [address] [place] [address] [place] [address] Referral ID Status Reason Start Date Expiration Date Visits Requested Visits Authorized [id number] Authorized Auto-Generat ed Referral 03/20/2024 04/19/2025 1 1 [facility] for referral (narrative)* Diagnostic Procedure Only (Routine) - Closed Specialty Diagnoses / Procedures Referred By Contac t Referred To Contact XR IMAGING Diagnoses Pain Procedures XR WRIST GENERAL 3V PA/LAT/OBL LEFT RADEX WRIST COMPLETE MINIMUM 3 VIEWS Patria Scott PA-C [address] [place] [address] [place] [address] Referral ID Status Reason Start Date Expiration Date V isits Requested Visits Authorized [id number] Closed Auto-Generate d Referral 03/20/2024 04/19/2025 1 1 [facility] for referral (narrative)* Diagnostic Procedure Only (Routine) - Closed Specialty Diagnoses / Procedures Referred By Contac t Referred To Contact XR IMAGING Diagnoses Pain in left hip Procedures XR HIP 2V AP/LAT LEFT (AK,FL,ME) RADEX HIP UNILATERAL WITH PELVIS 2-3 VIEWS Selwyn Leiva PA-C [address] [place] [address] [place] [address] Referral ID Status Reason Start Date Expiration Date V isits Requested Visits Authorized [id number] Closed Auto-Generate d Referral 04/07/2023 05/06/2024 1 1 [facility] for referral (narrative)* Diagnostic Procedure Only (Routine) - Closed Specialty Diagnoses / Procedures Referred By Contac t Referred To Contact XR IMAGING Diagnoses Thumb pain, right Procedures XR HAND GENERAL 3V PA/LAT/OBL RIGHT RADEX HAND MINIMUM 3 VIEWS Afsaneh Hansen PA-C [address] [place] [address] [place] [address] Referral ID Status Reason Start Date Expiration Date V isits Requested Visits Authorized [id number] Closed Auto-Generate d Referral 02/05/2023 03/06/2024 1 1 * Diagnostic Procedure Only (Routine) - Closed Specialty Diagnoses / Procedures Referred By Contac t Referred To Contact XR IMAGING Diagnoses Left hand pain Procedures XR HAND GENERAL 3V PA/LAT/OBL LEFT RADEX HAND MINIMUM 3 VIEWS Afasneh Hansen PA-C [address] [place] [address] [place] [address] Referral ID Status Reason Start Date Expiration Date V isits Requested Visits Authorized [id number] Closed Auto-Generate d Referral 01/23/2023 02/22/2024 1 1 [facility] for referral (narrative)* Diagnostic Procedure Only (Routine) - Closed Specialty Diagnoses / Procedures Referred By Contac t Referred To Contact US IMAGING Diagnoses Leg swelling Procedures US DVT LOWER LT DUP-SCAN XTR VEINS UNILATERAL/[place] [address] [place] [address] [place] [address] Referral ID Status Reason Start Date Expiration Date V isits Requested Visits Authorized [id number] Closed Auto-Generate d Referral 12/02/2022 01/01/2024 1 1 [facility] for referral (narrative)* Diagnostic Procedure Only (Routine) - Closed Specialty Diagnoses / Procedures Referred By Contac t Referred To Contact XR IMAGING Diagnoses Pain Procedures XR SHOULDER GENERAL 3V OR MORE AP/TRUE AP/OTHER RIGHT RADEX SHOULDER COMPLETE MINIMUM 2 VIEWS Flynn Julian PA-C [address] [address] Xr Imaging [facility] Referral ID Status Reason Start Date Expiration Date V isits Requested Visits Authorized [id number] Closed Auto-Generate d Referral 09/11/2022 10/11/2023 1 1 [facility] for referral (narrative)* Diagnostic Procedure Only (Routine) - Closed Specialty Diagnoses / Procedures Referred By Contac t Referred To Contact XR IMAGING Diagnoses Right hand pain Procedures XR HAND GENERAL 3V PA/LAT/OBL RIGHT RADEX HAND MINIMUM 3 [place] [address] [place] [address] [place] [address] Referral ID Status Reason Start Date Expiration Date V isits Requested Visits Authorized [id number] Closed Auto-Generate d Referral 08/02/2024 09/01/2025 1 1 [facility] for visit Narrative* Diagnostic Procedure Only (Routine) - Closed Specialty Diagnoses / Procedures Referred By Contac t Referred To Contact XR IMAGING Diagnoses Pain Procedures XR KNEE GENERAL 4V AP BOTH/PA BOTH/LAT/MERC LEFT RADIOLOGIC EXAM KNEE COMPLETE 4/MORE VIEWS James Barnes APRN.[facility] [address] [address] Xr Imaging Referral ID Status Reason Start Date Expiration Date V isits Requested Visits Authorized [id number] Closed Auto-Generate d Referral 12/16/2021 01/12/2023 1 1 [facility] for visit Narrative* Diagnostic Procedure Only (Routine) - Closed Specialty Diagnoses / Procedures Referred By Contac t Referred To Contact MOLECULAR & FUNCTIONAL IMAGING Diagnoses Prostate cancer (HCC) Procedures NM BONE WHOLE BODY BONE &/JOINT IMAGING WHOLE BODY Vazquez Page DO [facility] [place] [address] Molecular & Functional Imaging [address] [place] [address] Referral ID Status Reason Start Date Expiration Date V isits Requested Visits Authorized [id number] Closed Auto-Generate d Referral 05/19/2022 06/18/2023 1 1 [facility] for visit Narrative* Diagnostic Procedure Only (Routine) - Waiting for Online Response Specialty Diagnoses / Procedures Referred By Contac t Referred To Contact MOLECULAR & FUNCTIONAL IMAGING Diagnoses Prostate cancer (HCC) Procedures NM PET/CT PROSTATE WHOLE BODY IMAGING PET IMAGING CT ATTENUATION SKULL [place] [address] [place] [address] Molecular & Functional Imaging [address] [place] [address] Referral ID Status Reason Start Date Expiration Date Visits Requested Visits Authorized [id number] Waiting for Online Response Patient Cleared - Admin/Chair man/Directo r advise to proceed 08/21/2023 2 2 [facility] for visit Narrative* Diagnostic Procedure Only (Routine) - Closed Specialty Diagnoses / Procedures Referred By Contac t Referred To Contact XR IMAGING Diagnoses Prostate cancer (HCC) Procedures XR SACRUM/COCCYX 3V AP/LAT RADEX SACRUM & COCCYX MINIMUM 2 [place] [address] [place] [id number] [place] [address] Referral ID Status Reason Start Date Expiration Date V isits Requested Visits Authorized [id number] Closed Auto-Generate d Referral 07/03/2023 08/01/2024 1 1 [facility] for visit Narrative* Diagnostic Procedure Only (Routine) - Closed Specialty Diagnoses / Procedures Referred By Contac t Referred To Contact US IMAGING Diagnoses Pain in joint, multiple sites Procedures US HAND/WRIST SYNOVIAL SCREEN LEFT US COMPL JOINT R-T W/[place] [address] [phone] [place] [address] Referral ID Status Reason Start Date Expiration Date V isits Requested Visits Authorized [id number] Closed Auto-Generate d Referral 12/14/2023 01/12/2025 1 1 [facility] for visit Narrative* Diagnostic Procedure Only (Routine) - Closed Specialty Diagnoses / Procedures Referred By Contac t Referred To Contact XR IMAGING Diagnoses Pain Procedures XR WRIST GENERAL 3V PA/LAT/OBL LEFT RADEX WRIST COMPLETE MINIMUM 3 VIEWS Patria Scott PA-C [address] [place] [address] [place] [address] Referral ID Status Reason Start Date Expiration Date V isits Requested Visits Authorized [id number] Closed Auto-Generate d Referral 03/20/2024 04/19/2025 1 1 [facility] for visit Narrative* Diagnostic Procedure Only (Routine) - Closed Specialty Diagnoses / Procedures Referred By Contac t Referred To Contact XR IMAGING Diagnoses Pain in left hip Procedures XR HIP 2V AP/LAT LEFT (AK,FL,ME) RADEX HIP UNILATERAL WITH PELVIS 2-3 VIEWS Selwyn Leiva PA-C [address] [place] [address] [place] [address] Referral ID Status Reason Start Date Expiration Date V isits Requested Visits Authorized [id number] Closed Auto-Generate d Referral 04/07/2023 05/06/2024 1 1 [facility] for visit Narrative* Diagnostic Procedure Only (Routine) - Closed Specialty Diagnoses / Procedures Referred By Contac t Referred To Contact XR IMAGING Diagnoses Left hand pain Procedures XR HAND GENERAL 3V PA/LAT/OBL LEFT RADEX HAND MINIMUM 3 VIEWS Afsaneh aHnsen PA-C [address] [place] [address] Xr Imaging [facility] Referral ID Status Reason Start Date Expiration Date V isits Requested Visits Authorized [id number] Closed Auto-Generate d Referral 01/23/2023 02/22/2024 1 1 [facility] for visit Narrative* Diagnostic Procedure Only (Routine) - Closed Specialty Diagnoses / Procedures Referred By Contac t Referred To Contact US IMAGING Diagnoses Leg swelling Procedures US DVT LOWER LT DUP-SCAN XTR VEINS UNILATERAL/[place] [address] [place] [address] Us Imaging [facility] Referral ID Status Reason Start Date Expiration Date V isits Requested Visits Authorized [id number] Closed Auto-Generate d Referral 12/02/2022 01/01/2024 1 1 [facility] for visit Narrative* Diagnostic Procedure Only (Routine) - Closed Specialty Diagnoses / Procedures Referred By Contac t Referred To Contact XR IMAGING Diagnoses Left knee pain, unspecified chronicity Procedures XR KNEE GENERAL 4V AP BOTH/PA BOTH/LAT/MERC LEFT RADIOLOGIC EXAM KNEE COMPLETE 4/MORE VIEWS Selwyn Leiva PA-C [address] [place] [address] Phone: tel: fax: XR IMAGING [facility] Referral ID Status Reason Start Date Expiration Date V isits Requested Visits Authorized [id number] Closed Auto-Generate d Referral 02/27/2025 03/29/2026 1 1 [facility] Medications Administered Section Inactive Administered Medications - up to 3 most recent administrations Medication Order MAR Action Action Date Dose Rate Site betamethasone acetate-betamethasone sodium phosphate 12 mg injection (CELESTONE) 12 mg, Injection - FOR ORTHO USE ONLY, ONE TIME INJECTION, 1 dose, Starting on Thu12/24/21 at 0858, Until Thu12/24/21 at 0858 Given 12/24/2021 8:58 AM EDT 12 mg lidocaine (PF) 10 mg/mL (1 %) 3 mL injection (XYLOCAINE) 3 mL, Injection - FOR ORTHO USE ONLY, ONE TIME INJECTION, 1 dose, Starting on Thu12/24/21 at 0858, Until Thu12/24/21 at 0858 Given 12/24/2021 8:58 AM EDT 3 mL Inactive Administered Medications - up to 3 most recent administrations Medication Order MAR Action Action Date Dose Rate Site leuprolide 22.5 mg injection (LUPRON DEPOT) 22.5 mg, INTRAMUSCULAR, ONCE, 1 dose, On Thu09/09/22 at 0830, Hazardous Chemotherapy Drug: Use appropriate PPE. Given 09/09/2022 8:34 AM EST 22.5 mg Buttocks, Right Inactive Administered Medications - up to 3 most recent administrations Medication Order MAR Action Action Date Dose Rate Site leuprolide 22.5 mg injection (LUPRON DEPOT) 22.5 mg, INTRAMUSCULAR, ONCE, 1 dose, On Thu12/09/22 at 1000, Hazardous Chemotherapy Drug: Use appropriate PPE. Given 12/09/2022 9:42 AM EDT 22.5 mg Buttocks, Left Inactive Administered Medications - up to 3 most recent administrations Medication Order MAR Action Action Date Dose Rate Site betamethasone acetate-betamethasone sodium phosphate 12 mg injection (CELESTONE) 12 mg, Injection - FOR ORTHO USE ONLY, ONE TIME INJECTION, 1 dose, Starting on Thu01/30/23 at 1436, Until Thu01/30/23 at 1436 Given 01/30/2023 2:36 PM EDT 12 mg Kne e, Left lidocaine (PF) 10 mg/mL (1 %) 3 mL injection (XYLOCAINE) 3 mL, Injection - FOR ORTHO USE ONLY, ONE TIME INJECTION, 1 dose, Starting on Thu01/30/23 at 1436, Until Thu01/30/23 at 1436 Given 01/30/2023 2:36 PM EDT 3 mL Kne e, Left Inactive Administered Medications - up to 3 most recent administrations Medication Order MAR Action Action Date Dose Rate Site betamethasone acetate-betamethasone sodium phosphate 3 mg injection (CELESTONE) 3 mg, Injection - FOR ORTHO USE ONLY, ONE TIME INJECTION, 1 dose, Starting on Yvonne 02/05/23 at 1525, Until Yvonne 02/05/23 at 1525 Given 02/05/2023 3:25 PM EDT 3 mg Hand, Left lidocaine (PF) 10 mg/mL (1 %) 0.5 mL injection (XYLOCAINE) 0.5 mL, Injection - FOR ORTHO USE ONLY, ONE TIME INJECTION, 1 dose, Starting on Yvonne 02/05/23 at 1525, Until Yvonne 02/05/23 at 1525 Given 02/05/2023 3:25 PM EDT 0.5 mL Hand, Left Advance Directives No Advanced Directives Records FoundDocuments on File Type Date Recorded 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 Advance Directive(s) 06/30/2018 9:14 AM Date Activated Date Inactivated Comments 06/30/2018 1:18 PM 07/01/2018 6:48 PM Question Answer Comments Full Code Order Discussed With: Patient Latest Code Status on File Code Status Date Activated Date Inactivated Comments Full Code 06/30/2018 1:18 PM 07/01/2018 6:48 PM Full Code Order Discussed With: Patient Documents on File Type Date Recorded 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 Advance Directive(s) 10/04/2021 7:34 PM Advance Directive(s) 11/12/2019 9:23 PM Advance Directive(s) 08/24/2018 4:38 PM Advance Directive(s) 06/30/2018 9:16 AM In anned [id number] Advance Directive(s) 06/30/2018 9:14 AM Advance Directive(s) 05/11/2018 8:03 AM Advance Directive(s) 07/23/2016 8:48 AM Advance Directive(s) 07/23/2016 11:45 AM Latest Code Status on File Code Status Date Activated Date Inactivated Comments Full Code 06/30/2018 1:18 PM 07/01/2018 6:48 PM Documents on File Type Date Recorded 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 Advance Directive(s) 10/04/2021 7:34 PM Advance Directive(s) 11/12/2019 9:23 PM Advance Directive(s) 08/24/2018 4:38 PM Advance Directive(s) 06/30/2018 9:16 AM In anned [id number] Advance Directive(s) 06/30/2018 9:14 AM Advance Directive(s) 05/11/2018 8:03 AM Advance Directive(s) 07/23/2016 8:48 AM Advance Directive(s) 07/23/2016 11:45 AM Documents on File Type Date Recorded 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 Advance Directive(s) 06/30/2018 9:14 AM Latest Code Status on File Code Status Date Activated Date Inactivated Comments Full Code 06/30/2018 1:18 PM 07/01/2018 6:48 PM Question Answer Comments Full Code Order Discussed With: Patient Latest Code Status on File Code Status Date Activated Date Inactivated Comments Full Code 06/30/2018 1:18 PM 07/01/2018 6:48 PM Question Answer Comments Full Code Order Discussed With: Patient Date Activated Date Inactivated Comments 06/30/2018 1:18 PM 07/01/2018 6:48 PM Question Answer Comments Full Code Order Discussed With: Patient Chief Complaint and Reason for Visit Chief Complaint cough Reason for Visit Bilateral hand swell ing Bronchitis Elevated PSA Maxillary sinusitis, acute Osteoarthritis Hypertension Chief Complaint Cellulitis & Medrefi lls medication refills Reason for Visit Adverse effect of co rrect medicinal substance properly administered Edema of both lower extremities 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 Osteoarthritis Elevated PSA GERD Pain, joint, multiple sites Hypertension Family History No Family History Records Found Relationship Condition Age at Onset Recorded Date/T parminder Not Specified Cardiac disease Unknown Malignant neoplasm Unknown Pneumonia Unknown Reason for Referral Specialty Diagnoses / Procedures Referred By Contac t Referred To Contact Radiation Oncology Diagnoses Prostate cancer (HCC) Procedures RAD/ONC CONSULT OFFICE/OUTPATIENT [facility] MDM 60-74 MINUTES Vazquez Page DO [address] [place] [address] [place] [address] [place] [address] Referral ID Status Reason Start Date Expiration Date Visits Requested Visits Authorized [id number] Authorized PCP Requested Referral 06/19/2022 06/19/2023 1 1 Specialty Diagnoses / Procedures Referred By Contac t Referred To Contact MR IMAGING Diagnoses Prostate cancer (HCC) Procedures MRI PROSTATE WO/W IVCON MRI PELVIS W/O & W/CONTRAST MATERIAL Vazquez Page, [address] [place] [address] Mr Imaging Referral ID Status Reason Start Date Expiration Date Visits Requested Visits Authorized [id number] Pending Review Auto-Generat ed Referral 06/19/2022 07/19/2023 1 1 Specialty Diagnoses / Procedures Referred By Contac t Referred To Contact MR IMAGING Diagnoses Dysfunction of right rotator cuff Procedures MRI SHOULDER WO IVCON RT MRI ANY JT UPPER EXTREMITY W/O CONTRAST MATRL Flynn Julian PA-C [address] [place] [address] Mr Imaging Referral ID Status Reason Start Date Expiration Date Visits Requested Visits Authorized [id number] Pending Review Auto-Generat ed Referral 2 10/12/2023 1 1 Specialty Diagnoses / Procedures Referred By Contac t Referred To Contact [facility] Diagnoses Dysfunction of right rotator cuff Procedures CONSULT TO PHYSICAL THERAPY PHYSICAL THERAPY EVALUATION HIGH COMPLEX 45 MINS Flynn Julian PA-C [address] [address] [facility] [address] [place] [address] Referral ID Status Reason Start Date Expiration Date Visits Requested Visits Authorized [id number] Pending Review Auto-Generat ed Referral 2 09/12/2023 1 1 Specialty Diagnoses / Procedures Referred By Contac t Referred To Contact Urology Diagnoses Prostate cancer (HCC) Bladder neck obstruction Procedures CONSULT TO UROLOGY OFFICE/OUTPATIENT NEW HIGH MDM 60 [place] [address] [place] [address] Referral ID Status Reason Start Date Expiration Date Visits Requested Visits Authorized [id number] Authorized PCP Requested Referral 12/17/2023 12/16/2024 1 1 Specialty Diagnoses / Procedures Referred By Traci ang Referred To Contact MR IMAGING Diagnoses Bladder neck obstruction Procedures MRI PELVIS WO/W IVCON MRI PELVIS W/O & W/[place] [address] [place] [address] [place] [address] Referral ID Status Reason Start Date Expiration Date Visits Requested Visits Authorized [id number] Pending Review Auto-Generat ed Referral 12/17/2023 01/15/2025 1 1 Referral ID Status Reason Start Date Expiration Date V isits Requested Visits Authorized [id number] Closed Auto-Generate d Referral 01/12/2024 02/11/2024 2 1 Summary Purpose Additional Source Comments Source Comments (unrecognize d section and content) In the event this informatio n is protected by the Federal Confidentiality of Alcohol and Drug Abuse Patient Records regulations: The Federal rules restrict any use of the information to criminally investigate or prosecute any alcohol or drug abuse patient.[facility] the event this information is protected by the Federal Confidentiality of Alcohol and Drug Abuse Patient Records regulations: The Federal rules restrict any use of the information to criminally investigate or prosecute any alcohol or drug abuse patient.[facility] the event this information is protected by the Federal Confidentiality of Alcohol and Drug Abuse Patient Records regulations: The Federal rules restrict any use of the information to criminally investigate or prosecute any alcohol or drug abuse patient.[facility] the event this information is protected by the Federal Confidentiality of Alcohol and Drug Abuse Patient Records regulations: The Federal rules restrict any use of the information to criminally investigate or prosecute any alcohol or drug abuse patient.[facility] the event this information is protected by the Federal Confidentiality of Alcohol and Drug Abuse Patient Records regulations: The Federal rules restrict any use of the information to criminally investigate or prosecute any alcohol or drug abuse patient.[facility] the event this information is protected by the Federal Confidentiality of Alcohol and Drug Abuse Patient Records regulations: The Federal rules restrict any use of the information to criminally investigate or prosecute any alcohol or drug abuse patient.[facility] the event this information is protected by the Federal Confidentiality of Alcohol and Drug Abuse Patient Records regulations: The Federal rules restrict any use of the information to criminally investigate or prosecute any alcohol or drug abuse patient.[facility] the event this information is protected by the Federal Confidentiality of Alcohol and Drug Abuse Patient Records regulations: The Federal rules restrict any use of the information to criminally investigate or prosecute any alcohol or drug abuse patient.[facility] the event this information is protected by the Federal Confidentiality of Alcohol and Drug Abuse Patient Records regulations: The Federal rules restrict any use of the information to criminally investigate or prosecute any alcohol or drug abuse patient.[facility] the event this information is protected by the Federal Confidentiality of Alcohol and Drug Abuse Patient Records regulations: The Federal rules restrict any use of the information to criminally investigate or prosecute any alcohol or drug abuse patient.[facility] HospitalIn the event this information is protected by the Federal Confidentiality of Alcohol and Drug Abuse Patient Records regulations: The Federal rules restrict any use of the information to criminally investigate or prosecute any alcohol or drug abuse patient.[facility] HospitalIn the event this information is protected by the Federal Confidentiality of Alcohol and Drug Abuse Patient Records regulations: The Federal rules restrict any use of the information to criminally investigate or prosecute any alcohol or drug abuse patient.[facility] HospitalIn the event this information is protected by the Federal Confidentiality of Alcohol and Drug Abuse Patient Records regulations: The Federal rules restrict any use of the information to criminally investigate or prosecute any alcohol or drug abuse patient.[facility] HospitalIn the event this information is protected by the Federal Confidentiality of Alcohol and Drug Abuse Patient Records regulations: The Federal rules restrict any use of the information to criminally investigate or prosecute any alcohol or drug abuse patient.[facility] Hospital[facility] the event this information is protected by the Federal Confidentiality of Alcohol and Drug Abuse Patient Records regulations: The Federal rules restrict any use of the information to criminally investigate or prosecute any alcohol or drug abuse patient.[facility] HospitalIn the event this information is protected by the Federal Confidentiality of Alcohol and Drug Abuse Patient Records regulations: The Federal rules restrict any use of the information to criminally investigate or prosecute any alcohol or drug abuse patient.[facility] HospitalIn the event this information is protected by the Federal Confidentiality of Alcohol and Drug Abuse Patient Records regulations: The Federal rules restrict any use of the information to criminally investigate or prosecute any alcohol or drug abuse patient.[facility] HospitalIn the event this information is protected by the Federal Confidentiality of Alcohol and Drug Abuse Patient Records regulations: The Federal rules restrict any use of the information to criminally investigate or prosecute any alcohol or drug abuse patient.[facility] HospitalIn the event this information is protected by the Federal Confidentiality of Alcohol and Drug Abuse Patient Records regulations: The Federal rules restrict any use of the information to criminally investigate or prosecute any alcohol or drug abuse patient.[facility] HospitalIn the event this information is protected by the Federal Confidentiality of Alcohol and Drug Abuse Patient Records regulations: The Federal rules restrict any use of the information to criminally investigate or prosecute any alcohol or drug abuse patient.[facility] HospitalIn the event this information is protected by the Federal Confidentiality of Alcohol and Drug Abuse Patient Records regulations: The Federal rules restrict any use of the information to criminally investigate or prosecute any alcohol or drug abuse patient.[facility] HospitalIn the event this information is protected by the Federal Confidentiality of Alcohol and Drug Abuse Patient Records regulations: The Federal rules restrict any use of the information to criminally investigate or prosecute any alcohol or drug abuse patient.[facility] HospitalIn the event this information is protected by the Federal Confidentiality of Alcohol and Drug Abuse Patient Records regulations: The Federal rules restrict any use of the information to criminally investigate or prosecute any alcohol or drug abuse patient.[facility] HospitalIn the event this information is protected by the Federal Confidentiality of Alcohol and Drug Abuse Patient Records regulations: The Federal rules restrict any use of the information to criminally investigate or prosecute any alcohol or drug abuse patient.[facility] HospitalIn the event this information is protected by the Federal Confidentiality of Alcohol and Drug Abuse Patient Records regulations: The Federal rules restrict any use of the information to criminally investigate or prosecute any alcohol or drug abuse patient.[facility] HospitalIn the event this information is protected by the Federal Confidentiality of Alcohol and Drug Abuse Patient Records regulations: The Federal rules restrict any use of the information to criminally investigate or prosecute any alcohol or drug abuse patient.[facility] HospitalIn the event this information is protected by the Federal Confidentiality of Alcohol and Drug Abuse Patient Records regulations: The Federal rules restrict any use of the information to criminally investigate or prosecute any alcohol or drug abuse patient.[facility] HospitalIn the event this information is protected by the Federal Confidentiality of Alcohol and Drug Abuse Patient Records regulations: The Federal rules restrict any use of the information to criminally investigate or prosecute any alcohol or drug abuse patient.[facility] HospitalIn the event this information is protected by the Federal Confidentiality of Alcohol and Drug Abuse Patient Records regulations: The Federal rules restrict any use of the information to criminally investigate or prosecute any alcohol or drug abuse patient.[facility] HospitalIn the event this information is protected by the Federal Confidentiality of Alcohol and Drug Abuse Patient Records regulations: The Federal rules restrict any use of the information to criminally investigate or prosecute any alcohol or drug abuse patient.[facility] HospitalIn the event this information is protected by the Federal Confidentiality of Alcohol and Drug Abuse Patient Records regulations: The Federal rules restrict any use of the information to criminally investigate or prosecute any alcohol or drug abuse patient.[facility] HospitalIn the event this information is protected by the Federal Confidentiality of Alcohol and Drug Abuse Patient Records regulations: The Federal rules restrict any use of the information to criminally investigate or prosecute any alcohol or drug abuse patient.[facility] HospitalIn the event this information is protected by the Federal Confidentiality of Alcohol and Drug Abuse Patient Records regulations: The Federal rules restrict any use of the information to criminally investigate or prosecute any alcohol or drug abuse patient.[facility] HospitalIn the event this information is protected by the Federal Confidentiality of Alcohol and Drug Abuse Patient Records regulations: The Federal rules restrict any use of the information to criminally investigate or prosecute any alcohol or drug abuse patient.[facility] HospitalIn the event this information is protected by the Federal Confidentiality of Alcohol and Drug Abuse Patient Records regulations: The Federal rules restrict any use of the information to criminally investigate or prosecute any alcohol or drug abuse patient.[facility] HospitalIn the event this information is protected by the Federal Confidentiality of Alcohol and Drug Abuse Patient Records regulations: The Federal rules restrict any use of the information to criminally investigate or prosecute any alcohol or drug abuse patient.[facility] HospitalIn the event this information is protected by the Federal Confidentiality of Alcohol and Drug Abuse Patient Records regulations: The Federal rules restrict any use of the information to criminally investigate or prosecute any alcohol or drug abuse patient.[facility] HospitalIn the event this information is protected by the Federal Confidentiality of Alcohol and Drug Abuse Patient Records regulations: The Federal rules restrict any use of the information to criminally investigate or prosecute any alcohol or drug abuse patient.[facility] HospitalIn the event this information is protected by the Federal Confidentiality of Alcohol and Drug Abuse Patient Records regulations: The Federal rules restrict any use of the information to criminally investigate or prosecute any alcohol or drug abuse patient.[facility] HospitalIn the event this information is protected by the Federal Confidentiality of Alcohol and Drug Abuse Patient Records regulations: The Federal rules restrict any use of the information to criminally investigate or prosecute any alcohol or drug abuse patient.[facility] HospitalIn the event this information is protected by the Federal Confidentiality of Alcohol and Drug Abuse Patient Records regulations: The Federal rules restrict any use of the information to criminally investigate or prosecute any alcohol or drug abuse patient.[facility] HospitalIn the event this information is protected by the Federal Confidentiality of Alcohol and Drug Abuse Patient Records regulations: The Federal rules restrict any use of the information to criminally investigate or prosecute any alcohol or drug abuse patient.[facility] HospitalIn the event this information is protected by the Federal Confidentiality of Alcohol and Drug Abuse Patient Records regulations: The Federal rules restrict any use of the information to criminally investigate or prosecute any alcohol or drug abuse patient.[facility] HospitalIn the event this information is protected by the Federal Confidentiality of Alcohol and Drug Abuse Patient Records regulations: The Federal rules restrict any use of the information to criminally investigate or prosecute any alcohol or drug abuse patient.[facility] HospitalIn the event this information is protected by the Federal Confidentiality of Alcohol and Drug Abuse Patient Records regulations: The Federal rules restrict any use of the information to criminally investigate or prosecute any alcohol or drug abuse patient.[facility] HospitalIn the event this information is protected by the Federal Confidentiality of Alcohol and Drug Abuse Patient Records regulations: The Federal rules restrict any use of the information to criminally investigate or prosecute any alcohol or drug abuse patient.[facility] HospitalIn the event this information is protected by the Federal Confidentiality of Alcohol and Drug Abuse Patient Records regulations: The Federal rules restrict any use of the information to criminally investigate or prosecute any alcohol or drug abuse patient.[facility] HospitalIn the event this information is protected by the Federal Confidentiality of Alcohol and Drug Abuse Patient Records regulations: The Federal rules restrict any use of the information to criminally investigate or prosecute any alcohol or drug abuse patient.[facility] HospitalIn the event this information is protected by the Federal Confidentiality of Alcohol and Drug Abuse Patient Records regulations: The Federal rules restrict any use of the information to criminally investigate or prosecute any alcohol or drug abuse patient.[facility] HospitalIn the event this information is protected by the Federal Confidentiality of Alcohol and Drug Abuse Patient Records regulations: The Federal rules restrict any use of the information to criminally investigate or prosecute any alcohol or drug abuse patient.[facility] HospitalIn the event this information is protected by the Federal Confidentiality of Alcohol and Drug Abuse Patient Records regulations: The Federal rules restrict any use of the information to criminally investigate or prosecute any alcohol or drug abuse patient.[facility] HospitalIn the event this information is protected by the Federal Confidentiality of Alcohol and Drug Abuse Patient Records regulations: The Federal rules restrict any use of the information to criminally investigate or prosecute any alcohol or drug abuse patient.[facility] HospitalIn the event this information is protected by the Federal Confidentiality of Alcohol and Drug Abuse Patient Records regulations: The Federal rules restrict any use of the information to criminally investigate or prosecute any alcohol or drug abuse patient.[facility] HospitalIn the event this information is protected by the Federal Confidentiality of Alcohol and Drug Abuse Patient Records regulations: The Federal rules restrict any use of the information to criminally investigate or prosecute any alcohol or drug abuse patient.[facility] HospitalIn the event this information is protected by the Federal Confidentiality of Alcohol and Drug Abuse Patient Records regulations: The Federal rules restrict any use of the information to criminally investigate or prosecute any alcohol or drug abuse patient.[facility] HospitalIn the event this information is protected by the Federal Confidentiality of Alcohol and Drug Abuse Patient Records regulations: The Federal rules restrict any use of the information to criminally investigate or prosecute any alcohol or drug abuse patient.[facility] HospitalIn the event this information is protected by the Federal Confidentiality of Alcohol and Drug Abuse Patient Records regulations: The Federal rules restrict any use of the information to criminally investigate or prosecute any alcohol or drug abuse patient.[facility] HospitalIn the event this information is protected by the Federal Confidentiality of Alcohol and Drug Abuse Patient Records regulations: The Federal rules restrict any use of the information to criminally investigate or prosecute any alcohol or drug abuse patient.[facility] HospitalIn the event this information is protected by the Federal Confidentiality of Alcohol and Drug Abuse Patient Records regulations: The Federal rules restrict any use of the information to criminally investigate or prosecute any alcohol or drug abuse patient.[facility] HospitalIn the event this information is protected by the Federal Confidentiality of Alcohol and Drug Abuse Patient Records regulations: The Federal rules restrict any use of the information to criminally investigate or prosecute any alcohol or drug abuse patient.[facility] HospitalIn the event this information is protected by the Federal Confidentiality of Alcohol and Drug Abuse Patient Records regulations: The Federal rules restrict any use of the information to criminally investigate or prosecute any alcohol or drug abuse patient.[facility] HospitalIn the event this information is protected by the Federal Confidentiality of Alcohol and Drug Abuse Patient Records regulations: The Federal rules restrict any use of the information to criminally investigate or prosecute any alcohol or drug abuse patient.[facility] HospitalIn the event this information is protected by the Federal Confidentiality of Alcohol and Drug Abuse Patient Records regulations: The Federal rules restrict any use of the information to criminally investigate or prosecute any alcohol or drug abuse patient.[facility] HospitalIn the event this information is protected by the Federal Confidentiality of Alcohol and Drug Abuse Patient Records regulations: The Federal rules restrict any use of the information to criminally investigate or prosecute any alcohol or drug abuse patient.[facility] HospitalIn the event this information is protected by the Federal Confidentiality of Alcohol and Drug Abuse Patient Records regulations: The Federal rules restrict any use of the information to criminally investigate or prosecute any alcohol or drug abuse patient.[facility] HospitalIn the event this information is protected by the Federal Confidentiality of Alcohol and Drug Abuse Patient Records regulations: The Federal rules restrict any use of the information to criminally investigate or prosecute any alcohol or drug abuse patient.[facility] HospitalIn the event this information is protected by the Federal Confidentiality of Alcohol and Drug Abuse Patient Records regulations: The Federal rules restrict any use of the information to criminally investigate or prosecute any alcohol or drug abuse patient.[facility] HospitalIn the event this information is protected by the Federal Confidentiality of Alcohol and Drug Abuse Patient Records regulations: The Federal rules restrict any use of the information to criminally investigate or prosecute any alcohol or drug abuse patient.[facility] HospitalIn the event this information is protected by the Federal Confidentiality of Alcohol and Drug Abuse Patient Records regulations: The Federal rules restrict any use of the information to criminally investigate or prosecute any alcohol or drug abuse patient.[facility] HospitalIn the event this information is protected by the Federal Confidentiality of Alcohol and Drug Abuse Patient Records regulations: The Federal rules restrict any use of the information to criminally investigate or prosecute any alcohol or drug abuse patient.[facility] HospitalIn the event this information is protected by the Federal Confidentiality of Alcohol and Drug Abuse Patient Records regulations: The Federal rules restrict any use of the information to criminally investigate or prosecute any alcohol or drug abuse patient.[facility] HospitalIn the event this information is protected by the Federal Confidentiality of Alcohol and Drug Abuse Patient Records regulations: The Federal rules restrict any use of the information to criminally investigate or prosecute any alcohol or drug abuse patient.[facility] HospitalIn the event this information is protected by the Federal Confidentiality of Alcohol and Drug Abuse Patient Records regulations: The Federal rules restrict any use of the information to criminally investigate or prosecute any alcohol or drug abuse patient.[facility] HospitalIn the event this information is protected by the Federal Confidentiality of Alcohol and Drug Abuse Patient Records regulations: The Federal rules restrict any use of the information to criminally investigate or prosecute any alcohol or drug abuse patient.[facility] HospitalIn the event this information is protected by the Federal Confidentiality of Alcohol and Drug Abuse Patient Records regulations: The Federal rules restrict any use of the information to criminally investigate or prosecute any alcohol or drug abuse patient.[facility] HospitalIn the event this information is protected by the Federal Confidentiality of Alcohol and Drug Abuse Patient Records regulations: The Federal rules restrict any use of the information to criminally investigate or prosecute any alcohol or drug abuse patient.[facility] HospitalIn the event this information is protected by the Federal Confidentiality of Alcohol and Drug Abuse Patient Records regulations: The Federal rules restrict any use of the information to criminally investigate or prosecute any alcohol or drug abuse patient.[facility] HospitalIn the event this information is protected by the Federal Confidentiality of Alcohol and Drug Abuse Patient Records regulations: The Federal rules restrict any use of the information to criminally investigate or prosecute any alcohol or drug abuse patient.[facility] HospitalIn the event this information is protected by the Federal Confidentiality of Alcohol and Drug Abuse Patient Records regulations: The Federal rules restrict any use of the information to criminally investigate or prosecute any alcohol or drug abuse patient.[facility] HospitalIn the event this information is protected by the Federal Confidentiality of Alcohol and Drug Abuse Patient Records regulations: The Federal rules restrict any use of the information to criminally investigate or prosecute any alcohol or drug abuse patient.[facility] HospitalIn the event this information is protected by the Federal Confidentiality of Alcohol and Drug Abuse Patient Records regulations: The Federal rules restrict any use of the information to criminally investigate or prosecute any alcohol or drug abuse patient.[facility] HospitalIn the event this information is protected by the Federal Confidentiality of Alcohol and Drug Abuse Patient Records regulations: The Federal rules restrict any use of the information to criminally investigate or prosecute any alcohol or drug abuse patient.[facility] HospitalIn the event this information is protected by the Federal Confidentiality of Alcohol and Drug Abuse Patient Records regulations: The Federal rules restrict any use of the information to criminally investigate or prosecute any alcohol or drug abuse patient.[facility] HospitalIn the event this information is protected by the Federal Confidentiality of Alcohol and Drug Abuse Patient Records regulations: The Federal rules restrict any use of the information to criminally investigate or prosecute any alcohol or drug abuse patient.[facility] HospitalIn the event this information is protected by the Federal Confidentiality of Alcohol and Drug Abuse Patient Records regulations: The Federal rules restrict any use of the information to criminally investigate or prosecute any alcohol or drug abuse patient.[facility] HospitalIn the event this information is protected by the Federal Confidentiality of Alcohol and Drug Abuse Patient Records regulations: The Federal rules restrict any use of the information to criminally investigate or prosecute any alcohol or drug abuse patient.[facility] HospitalIn the event this information is protected by the Federal Confidentiality of Alcohol and Drug Abuse Patient Records regulations: The Federal rules restrict any use of the information to criminally investigate or prosecute any alcohol or drug abuse patient.[facility] HospitalIn the event this information is protected by the Federal Confidentiality of Alcohol and Drug Abuse Patient Records regulations: The Federal rules restrict any use of the information to criminally investigate or prosecute any alcohol or drug abuse patient.[facility] HospitalIn the event this information is protected by the Federal Confidentiality of Alcohol and Drug Abuse Patient Records regulations: The Federal rules restrict any use of the information to criminally investigate or prosecute any alcohol or drug abuse patient.[facility] HospitalIn the event this information is protected by the Federal Confidentiality of Alcohol and Drug Abuse Patient Records regulations: The Federal rules restrict any use of the information to criminally investigate or prosecute any alcohol or drug abuse patient.[facility] HospitalIn the event this information is protected by the Federal Confidentiality of Alcohol and Drug Abuse Patient Records regulations: The Federal rules restrict any use of the information to criminally investigate or prosecute any alcohol or drug abuse patient.[facility] HospitalIn the event this information is protected by the Federal Confidentiality of Alcohol and Drug Abuse Patient Records regulations: The Federal rules restrict any use of the information to criminally investigate or prosecute any alcohol or drug abuse patient.[facility] HospitalIn the event this information is protected by the Federal Confidentiality of Alcohol and Drug Abuse Patient Records regulations: The Federal rules restrict any use of the information to criminally investigate or prosecute any alcohol or drug abuse patient.[facility] HospitalIn the event this information is protected by the Federal Confidentiality of Alcohol and Drug Abuse Patient Records regulations: The Federal rules restrict any use of the information to criminally investigate or prosecute any alcohol or drug abuse patient.[facility] HospitalIn the event this information is protected by the Federal Confidentiality of Alcohol and Drug Abuse Patient Records regulations: The Federal rules restrict any use of the information to criminally investigate or prosecute any alcohol or drug abuse patient.[facility] HospitalIn the event this information is protected by the Federal Confidentiality of Alcohol and Drug Abuse Patient Records regulations: The Federal rules restrict any use of the information to criminally investigate or prosecute any alcohol or drug abuse patient.[facility] HospitalIn the event this information is protected by the Federal Confidentiality of Alcohol and Drug Abuse Patient Records regulations: The Federal rules restrict any use of the information to criminally investigate or prosecute any alcohol or drug abuse patient.[facility] HospitalIn the event this information is protected by the Federal Confidentiality of Alcohol and Drug Abuse Patient Records regulations: The Federal rules restrict any use of the information to criminally investigate or prosecute any alcohol or drug abuse patient.[facility] HospitalIn the event this information is protected by the Federal Confidentiality of Alcohol and Drug Abuse Patient Records regulations: The Federal rules restrict any use of the information to criminally investigate or prosecute any alcohol or drug abuse patient.[facility] HospitalIn the event this information is protected by the Federal Confidentiality of Alcohol and Drug Abuse Patient Records regulations: The Federal rules restrict any use of the information to criminally investigate or prosecute any alcohol or drug abuse patient.[facility] HospitalIn the event this information is protected by the Federal Confidentiality of Alcohol and Drug Abuse Patient Records regulations: The Federal rules restrict any use of the information to criminally investigate or prosecute any alcohol or drug abuse patient.[facility] HospitalIn the event this information is protected by the Federal Confidentiality of Alcohol and Drug Abuse Patient Records regulations: The Federal rules restrict any use of the information to criminally investigate or prosecute any alcohol or drug abuse patient.[facility] HospitalIn the event this information is protected by the Federal Confidentiality of Alcohol and Drug Abuse Patient Records regulations: The Federal rules restrict any use of the information to criminally investigate or prosecute any alcohol or drug abuse patient.[facility] HospitalIn the event this information is protected by the Federal Confidentiality of Alcohol and Drug Abuse Patient Records regulations: The Federal rules restrict any use of the information to criminally investigate or prosecute any alcohol or drug abuse patient.[facility] HospitalIn the event this information is protected by the Federal Confidentiality of Alcohol and Drug Abuse Patient Records regulations: The Federal rules restrict any use of the information to criminally investigate or prosecute any alcohol or drug abuse patient.[facility] HospitalIn the event this information is protected by the Federal Confidentiality of Alcohol and Drug Abuse Patient Records regulations: The Federal rules restrict any use of the information to criminally investigate or prosecute any alcohol or drug abuse patient.[facility] HospitalIn the event this information is protected by the Federal Confidentiality of Alcohol and Drug Abuse Patient Records regulations: The Federal rules restrict any use of the information to criminally investigate or prosecute any alcohol or drug abuse patient.[facility] HospitalIn the event this information is protected by the Federal Confidentiality of Alcohol and Drug Abuse Patient Records regulations: The Federal rules restrict any use of the information to criminally investigate or prosecute any alcohol or drug abuse patient.[facility] HospitalIn the event this information is protected by the Federal Confidentiality of Alcohol and Drug Abuse Patient Records regulations: The Federal rules restrict any use of the information to criminally investigate or prosecute any alcohol or drug abuse patient.[facility] HospitalIn the event this information is protected by the Federal Confidentiality of Alcohol and Drug Abuse Patient Records regulations: The Federal rules restrict any use of the information to criminally investigate or prosecute any alcohol or drug abuse patient.[facility] HospitalIn the event this information is protected by the Federal Confidentiality of Alcohol and Drug Abuse Patient Records regulations: The Federal rules restrict any use of the information to criminally investigate or prosecute any alcohol or drug abuse patient.[facility] HospitalIn the event this information is protected by the Federal Confidentiality of Alcohol and Drug Abuse Patient Records regulations: The Federal rules restrict any use of the information to criminally investigate or prosecute any alcohol or drug abuse patient.[facility] HospitalIn the event this information is protected by the Federal Confidentiality of Alcohol and Drug Abuse Patient Records regulations: The Federal rules restrict any use of the information to criminally investigate or prosecute any alcohol or drug abuse patient.[facility] HospitalIn the event this information is protected by the Federal Confidentiality of Alcohol and Drug Abuse Patient Records regulations: The Federal rules restrict any use of the information to criminally investigate or prosecute any alcohol or drug abuse patient.[facility] HospitalIn the event this information is protected by the Federal Confidentiality of Alcohol and Drug Abuse Patient Records regulations: The Federal rules restrict any use of the information to criminally investigate or prosecute any alcohol or drug abuse patient.[facility] HospitalIn the event this information is protected by the Federal Confidentiality of Alcohol and Drug Abuse Patient Records regulations: The Federal rules restrict any use of the information to criminally investigate or prosecute any alcohol or drug abuse patient.[facility] HospitalIn the event this information is protected by the Federal Confidentiality of Alcohol and Drug Abuse Patient Records regulations: The Federal rules restrict any use of the information to criminally investigate or prosecute any alcohol or drug abuse patient.[facility] HospitalIn the event this information is protected by the Federal Confidentiality of Alcohol and Drug Abuse Patient Records regulations: The Federal rules restrict any use of the information to criminally investigate or prosecute any alcohol or drug abuse patient.[facility] HospitalIn the event this information is protected by the Federal Confidentiality of Alcohol and Drug Abuse Patient Records regulations: The Federal rules restrict any use of the information to criminally investigate or prosecute any alcohol or drug abuse patient.[facility] HospitalIn the event this information is protected by the Federal Confidentiality of Alcohol and Drug Abuse Patient Records regulations: The Federal rules restrict any use of the information to criminally investigate or prosecute any alcohol or drug abuse patient.[facility] HospitalIn the event this information is protected by the Federal Confidentiality of Alcohol and Drug Abuse Patient Records regulations: The Federal rules restrict any use of the information to criminally investigate or prosecute any alcohol or drug abuse patient.[facility] HospitalIn the event this information is protected by the Federal Confidentiality of Alcohol and Drug Abuse Patient Records regulations: The Federal rules restrict any use of the information to criminally investigate or prosecute any alcohol or drug abuse patient.[facility] HospitalIn the event this information is protected by the Federal Confidentiality of Alcohol and Drug Abuse Patient Records regulations: The Federal rules restrict any use of the information to criminally investigate or prosecute any alcohol or drug abuse patient.[facility] HospitalIn the event this information is protected by the Federal Confidentiality of Alcohol and Drug Abuse Patient Records regulations: The Federal rules restrict any use of the information to criminally investigate or prosecute any alcohol or drug abuse patient.[facility] HospitalIn the event this information is protected by the Federal Confidentiality of Alcohol and Drug Abuse Patient Records regulations: The Federal rules restrict any use of the information to criminally investigate or prosecute any alcohol or drug abuse patient.[facility] HospitalIn the event this information is protected by the Federal Confidentiality of Alcohol and Drug Abuse Patient Records regulations: The Federal rules restrict any use of the information to criminally investigate or prosecute any alcohol or drug abuse patient.[facility] Reason for Visit (unrecogniz ed section and content) Reason Comments Established Patient Specialty Diagnoses / Procedures Referred By Contac t Referred To Contact Diagnoses Prostate cancer (HCC) Procedures LEUPROLIDE [place] [address] [place] [address] [facility] [address] [place] [address] Referral ID Status Reason Start Date Expiration Date V isits Requested Visits Authorized [id number] Authorized 08/11/2022 11/08/2023 4 5 Reason Comments Injections Reason Onset Date Comments Refill Request 02/28/2022 Reason Comments Results Specialty Diagnoses / Procedures Referred By Contac t Referred To Contact CT IMAGING Diagnoses Prostate cancer (HCC) Procedures CT PELVIS W IVCON CT PELVIS W/CONTRAST MATERIAL Vazquez Page DO [id number] Imaging Referral ID Status Reason Start Date Expiration Date V isits Requested Visits Authorized [id number] Closed Auto-Generate d Referral 05/19/2022 06/18/2023 1 1 Reason Comments Follow Up scans Reason Comments Prostate Cancer Specialty Diagnoses / Procedures Referred By Contac t Referred To Contact Radiation Oncology Diagnoses Prostate cancer (HCC) Procedures RAD/ONC CONSULT OFFICE/OUTPATIENT NEW HIGH MDM 60-74 MINUTES Vazquez Page DO [address] [place] [address] [place] [address] [place] [address] Referral ID Status Reason Start Date Expiration Date V isits Requested Visits Authorized [id number] Closed PCP Requested Referral 06/19/2022 06/19/2023 1 1 Reason Onset Date Comments Refill Request 07/14/2022 Reason Comments Consult Reason Comments Established Patient Follow up to prostat e MRI Reason Comments Imm/Inj Referral ID Status Reason Start Date Expiration Date V isits Requested Visits Authorized [id number] Authorized 08/11/2022 09/27/2022 99 99 Reason Comments Injections Reason Comments Benefits Investigation Reason Comments Med Change Request Reason Comments Radiotherapy On-treatment Visit Reason Comments Refill Request Reason Comments Established Patient Knee Pain Injections Reason Comments New Pain Reason Comments Established Patient Pain Specialty Diagnoses / Procedures Referred By Contac t Referred To Contact Rheumatology Diagnoses Arthritis Procedures CONSULT TO RHEUM/IMMUN DISEASE OFFICE/OUTPATIENT NEW HIGH MDM 60-[place] [address] [place] [id number] Referral ID Status Reason Start Date Expiration Date V isits Requested Visits Authorized [id number] Closed PCP Requested Referral 07/21/2023 07/20/2024 1 1 Reason Comments Appointment Reason Comments Results Reason Comments Orders Specialty Diagnoses / Procedures Referred By Contac t Referred To Contact Urology Diagnoses Prostate cancer (HCC) Bladder neck obstruction Procedures CONSULT TO UROLOGY OFFICE/OUTPATIENT NEW HIGH MDM 60 [place] [address] [place] [address] Referral ID Status Reason Start Date Expiration Date V isits Requested Visits Authorized [id number] Closed PCP Requested Referral 12/17/2023 12/16/2024 1 1 Reason Onset Date Comments Refill Request 02/02/2024 Reason Comments New Patient 152/76 Reason Comments Cystoscopy-1 Reason Comments Schedule Surgery Reason Comments New Pain Reason Comments Post Op Pain Reason Comments Radiology MRI Specialty Diagnoses / Procedures Referred By Contac t Referred To Contact MR IMAGING Diagnoses Bladder neck obstruction Procedures MRI PELVIS WO/W IVCON MRI PELVIS W/O & W/[place] [address] [place] [address] [place] [address] Referral ID Status Reason Start Date Expiration Date V isits Requested Visits Authorized [id number] Closed Auto-Generate d Referral 01/12/2024 02/11/2024 2 1 Reason Comments Established Patient Post Op Reason Comments Radio Gen RMP Specialty Diagnoses / Procedures Referred By Contac t Referred To Contact XR IMAGING Diagnoses Pain Procedures XR SHOULDER GENERAL 3V OR MORE AP/TRUE AP/OTHER RIGHT RADEX SHOULDER COMPLETE MINIMUM 2 VIEWS Flynn Julian, PA-C [address] [address] [place] [address] Referral ID Status Reason Start Date Expiration Date V isits Requested Visits Authorized [id number] Closed Auto-Generate d Referral 09/11/2022 10/11/2023 1 1 Reason Comments Patient Question Reason Comments Wound Care Reason Comments Post Op 11 week 4 days post op left CTR Reason Comments New Pain Injections Reason Comments Radio Gen RMP Specialty Diagnoses / Procedures Referred By Contac t Referred To Contact XR IMAGING Diagnoses Right hand pain Procedures XR HAND GENERAL 3V PA/LAT/OBL RIGHT RADEX HAND MINIMUM 3 [place] [address] [place] [address] [place] [address] Referral ID Status Reason Start Date Expiration Date V isits Requested Visits Authorized [id number] Closed Auto-Generate d Referral 08/02/2024 09/01/2025 1 1 Reason Comments Established Patient Pain Injections Reason Comments Knee Pain Established Patient Care Teams (unrecognized sec tion and content) Schedule Maker Relationship Specialty Start Date End Date Norma Davies, RAJENDRA.SUPERVISOR [employer] [address] [place] [address] PCP - General Family Practice 08/03/13 Christy Sierra MD [address] [place] [address] Primary Staff Physician Cardiology 12/14/18 Schedule Maker Relationship Specialty Start Date End Date Norma Davies APRN.[employer] [address] [place] [address] [phone] PCP - General Family Practice 08/03/13 Christy Sierra MD [address] [place] [address] Primary Staff Physician Cardiology 12/14/18 Schedule Maker Relationship Specialty Start Date End Date Norma Davies, APPLIANCES SAMPLE MAKER.SUPERVISOR [employer] [address] [place], [place] [phone] PCP - General Family Practice 08/03/13 Christy Sierra MD [address] [place] [address] Primary Staff Physician Cardiology 12/14/18 Schedule Maker Relationship Specialty Start Date End Date Norma Davies, APPLIANCES SAMPLE MAKER.SUPER[employer]OR [employer] [address] [place] [address] PCP - General Family Practice 08/03/13 Christy Sierra MD [address] [place] [address] Primary Staff Physician Cardiology 12/14/18 Schedule Maker Relationship Specialty Start Date End Date Norma Davies, APPLIANCES SAMPLE MAKER.SUPER[employer] [address] [place], [place] [phone] PCP - General Family Practice 08/03/13 Christy Sierra MD [address] [place] [address] Primary Staff Physician Cardiology 12/14/18 Schedule Maker Relationship Specialty Start Date End Date Norma Davies, APPLIANCES SAMPLE MAKER.SUPER[employer] [address] [place], [place] [phone] PCP - General Family Practice 08/03/13 FenChristy Wiggins MD [address] [place] [address] Primary Staff Physician Cardiology 12/14/18 Schedule Maker Relationship Specialty Start Date End Date Norma Davies, APPLIANCES SAMPLE MAKER.SUPER[employer] [address] [place], [place] [phone] PCP - General Family Practice 08/03/13 Christy Sierra MD [address] [place] [address] Primary Staff Physician Cardiology 12/14/18 Schedule Maker Relationship Specialty Start Date End Date Norma Davies, APPLIANCES SAMPLE MAKER.SUPER[employer]OR [employer] [address] [place] [address] PCP - General Family Practice 08/03/13 Christy Sierra MD [address] [place] [address] Primary Staff Physician Cardiology 12/14/18 Schedule Maker Relationship Specialty Start Date End Date Norma Davies, APPLIANCES SAMPLE MAKER.SUPER[employer]OR [employer] [address] [place] [address] PCP - General Family Practice 08/03/13 [place] [address] [place] [address] Primary Staff Physician Cardiology 12/14/18 Schedule Maker Relationship Specialty Start Date End Date Norma Davies, APPLIANCES SAMPLE MAKER.SUPERVISOR [employer] [address] [place], [place] [phone] PCP - General Family Medicine 08/03/13 Christy Sierra MD [address] [place] [address] Primary Staff Physician Cardiology 12/14/18 Schedule Maker Relationship Specialty Start Date End Date Norma Davies, APPLIANCES SAMPLE MAKER.SUPER[employer] [address] [place], [place] [phone] PCP - General Family Medicine 08/03/13 Christy Sierra MD [address] [place], [place] [phone] Primary Staff Physician Cardiology 12/14/18 [place] [address] [place] [address] Radiation Oncology 06/23/22 Schedule Maker Relationship Specialty Start Date End Date Norma Davies, APPLIANCES SAMPLE MAKER.SUPER[employer] [address] [place] [phone] PCP - General Family Medicine 08/03/13 Christy Sierra MD [address] [place] [address] Primary Staff Physician Cardiology 12/14/18 [place] [address] [place] [address] Radiation Oncology 06/23/22 Schedule Maker Relationship Specialty Start Date End Date Norma Davies, APPLIANCES SAMPLE MAKER.SUPERVISOR [employer] PCP - General Family Medicine 08/03/13 Christy Sierra MD [address] [place] [address] Primary Staff Physician Cardiology 12/14/18 [place] [address] [place] [address] Radiation Oncology 06/23/22 Schedule Maker Relationship Specialty Start Date End Date Norma Davies, APPLIANCES SAMPLE MAKER.SUPER[employer]OR [employer] PCP - General Family Medicine 08/03/13 Christy Sierra MD [address] [place] [address] Primary Staff Physician Cardiology 12/14/18 [place] [address] [place] [address] Radiation Oncology 06/23/22 Schedule Maker Relationship Specialty Start Date End Date Norma Davies, APPLIANCES SAMPLE MAKER.SUPERVISOR [employer] PCP - General Family Medicine 08/03/13 Christy Sierra MD [address] [place] [address] Primary Staff Physician Cardiology 12/14/18 [place] [address] [place] [address] Radiation Oncology 06/23/22 Schedule Maker Relationship Specialty Start Date End Date Norma Davies, APPLIANCES SAMPLE MAKER.SUPERVISOR [employer] PCP - General Family Medicine 08/03/13 Christy Sierra MD [address] [place] [address] Primary Staff Physician Cardiology 12/14/18 [place] [address] [place] [address] Radiation Oncology 06/23/22 Schedule Maker Relationship Specialty Start Date End Date Norma Davies, APPLIANCES SAMPLE MAKER.SUPERVISOR [employer] [address] [address] PCP - General Family Medicine 08/03/13 Christy Sierra MD [address] [place] [address] Primary Staff Physician Cardiology 12/14/18 [place] [address] [place] [address] Radiation Oncology 06/23/22 Schedule Maker Relationship Specialty Start Date End Date Norma Davies, APPLIANCES SAMPLE MAKER.SUPERVISOR [employer] [address] [place], [place] [phone] PCP - General Family Medicine 08/03/13 Christy Sierra MD [address] [place] [address] Primary Staff Physician Cardiology 12/14/18 [place] [address] [place] [address] Radiation Oncology 06/23/22 Schedule Maker Relationship Specialty Start Date End Date Norma Davies, APPLIANCES SAMPLE MAKER.SUPER[employer] [address] [place], [place] [phone] PCP - General Family Medicine 08/03/13 Christy Sierra MD [address] [place] [address] Primary Staff Physician Cardiology 12/14/18 [place] [address] [place] [address] Radiation Oncology 06/23/22 Schedule Maker Relationship Specialty Start Date End Date Norma Davies, APPLIANCES SAMPLE MAKER.SUPERVISOR [employer] [address] [place], [place] [phone] PCP - General Family Medicine 08/03/13 Christy Sierra MD [address] [place] [address] Primary Staff Physician Cardiology 12/14/18 [place] [address] [place] [address] Radiation Oncology 06/23/22 Schedule Maker Relationship Specialty Start Date End Date Norma Davies, APPLIANCES SAMPLE MAKER.SUPERVISOR [employer] [address] [place] [address] PCP - General Family Medicine 08/03/13 Christy Sierra MD [facility] [place] [address] Primary Staff Physician Cardiology 12/14/18 [place] [address] [place] [address] Radiation Oncology 06/23/22 Rohini Cody LISW [address] [place] [address] Assistant Vice President Oncology 11/07/22 Schedule Maker Relationship Specialty Start Date End Date Norma Davies, APPLIANCES SAMPLE MAKER.SUPERVISOR [employer] [address] [place] [address] PCP - General Family Medicine 08/03/13 Christy Sierra MD [address] [place] [address] Primary Staff Physician Cardiology 12/14/18 [place] [address] [place] [address] Radiation Oncology 06/23/22 Rohini Cody LISW [address] [place] [address] Assistant Vice President Oncology 11/07/22 Schedule Maker Relationship Specialty Start Date End Date Norma Davies, APPLIANCES SAMPLE MAKER.SUPERVISOR [employer] [address] [place], [place] [phone] PCP - General Family Medicine 08/03/13 Christy Sierra MD [address] [place] [address] Primary Staff Physician Cardiology 12/14/18 [place] [address] [place] [address] Radiation Oncology 06/23/22 Rohini Cody LISW [address] [place] [address] Assistant Vice President Oncology 11/07/22 Schedule Maker Relationship Specialty Start Date End Date Norma Davies, APPLIANCES SAMPLE MAKER.SUPERVISOR [employer] [address] [place] [address] PCP - General Family Medicine 08/03/13 Christy Sierra MD [address] [place] [address] Primary Staff Physician Cardiology 12/14/18 [place] [address] [place] [address] Radiation Oncology 06/23/22 Rohini Cody LISW [address] [place] [address] Assistant Vice President Oncology 11/07/22 Schedule Maker Relationship Specialty Start Date End Date Norma Davies, APPLIANCES SAMPLE MAKER.SUPERVISOR [employer] [address] [place], [place] [phone] PCP - General Family Medicine 08/03/13 Christy Sierra MD [address] [place] [address] Primary Staff Physician Cardiology 12/14/18 [place] [address] [place] [address] Radiation Oncology 06/23/22 Rohini Cody LISW [address] [place] [address] Assistant Vice President Oncology 11/07/22 Schedule Maker Relationship Specialty Start Date End Date Norma Davies, APPLIANCES SAMPLE MAKER.SUPERVISOR [employer] [address] [place], [place] [phone] PCP - General Family Medicine 08/03/13 Christy Sierra MD [facility] [place] [address] Primary Staff Physician Cardiology 12/14/18 [place] [address] [place] [address] Radiation Oncology 06/23/22 Rohini Cody LISW [address] [place] [address] Assistant Vice President Oncology 11/07/22 Schedule Maker Relationship Specialty Start Date End Date Norma Davies, APPLIANCES SAMPLE MAKER.SUPERVISOR [employer] [address] [address] PCP - General Family Medicine 08/03/13 Christy Sierra MD [address] [place] [address] Primary Staff Physician Cardiology 12/14/18 [place] [address] [place] [address] Radiation Oncology 06/23/22 Rohini Cody LISW [address] [place] [address] Assistant Vice President Oncology 11/07/22 Schedule Maker Relationship Specialty Start Date End Date Norma Davies, APPLIANCES SAMPLE MAKER.SUPERVISOR [employer] [address] [place], [place] [phone] PCP - General Family Medicine 08/03/13 Christy Sierra MD [address] [place] [address] Primary Staff Physician Cardiology 12/14/18 [place] [address] [place] [address] Radiation Oncology 06/23/22 Rohini Cody LISW [address] [place] [address] Assistant Vice President Oncology 11/07/22 Schedule Maker Relationship Specialty Start Date End Date Norma Davies, APPLIANCES SAMPLE MAKER.SUPERVISOR [employer] [address] [place] [address] PCP - General Family Medicine 08/03/13 Christy Sierra MD [address] [place] [address] Primary Staff Physician Cardiology 12/14/18 [place] [address] [place] [address] Radiation Oncology 06/23/22 Rohini Cody LISW [address] [place] [address] Assistant Vice President Oncology 11/07/22 Schedule Maker Relationship Specialty Start Date End Date Norma Davies, APPLIANCES SAMPLE MAKER.SUPERVISOR [employer] [address] [place] [address] PCP - General Family Medicine 08/03/13 Christy Sierra MD [address] [place] [address] Primary Staff Physician Cardiology 12/14/18 [place] [address] [place] [address] Radiation Oncology 06/23/22 Rohini Cody LISW [address] [place] [address] Assistant Vice President Oncology 11/07/22 Schedule Maker Relationship Specialty Start Date End Date Norma Davies, APPLIANCES SAMPLE MAKER.SUPERVISOR [employer] [address] [place], [place] [phone] PCP - General Family Medicine 08/03/13 Christy Sierra MD [address] [place] [address] Primary Staff Physician Cardiology 12/14/18 [place] [address] [place] [address] Radiation Oncology 06/23/22 Rohini Cody LISW [address] [place] [address] Assistant Vice President Oncology 11/07/22 Schedule Maker Relationship Specialty Start Date End Date Norma Davies, APPLIANCES SAMPLE MAKER.SUPERVISOR [employer] [address] [place] [address] PCP - General Family Medicine 08/03/13 Christy Sierra MD [address] [place] [address] Primary Staff Physician Cardiology 12/14/18 [place] [address] [place] [address] Radiation Oncology 06/23/22 Rohini Cody LISW [address] [place] [address] Assistant Vice President Oncology 11/07/22 Schedule Maker Relationship Specialty Start Date End Date Norma Davies, APPLIANCES SAMPLE MAKER.SUPERVISOR [employer] [address] [place] [address] PCP - General Family Medicine 08/03/13 Christy Sierra MD [address] [place] [address] Primary Staff Physician Cardiology 12/14/18 [place] [address] [place] [address] Radiation Oncology 06/23/22 Rohini Cody LISW [address]55[address] [place] [address] Assistant Vice President Oncology 11/07/22 Schedule Maker Relationship Specialty Start Date End Date Norma Davies, APPLIANCES SAMPLE MAKER.SUPERVISOR [employer] [address] [place] [address] PCP - General Family Medicine 08/03/13 Christy Sierra MD [address] [place] [address] Primary Staff Physician Cardiology 12/14/18 [place] [address] [place] [address] Radiation Oncology 06/23/22 Rohini Cody LISW [address]603 [place] [address] Assistant Vice President Oncology 11/07/22 Schedule Maker Relationship Specialty Start Date End Date Norma Davies, APPLIANCES SAMPLE MAKER.SUPERVISOR [employer] [address] [place] [address] PCP - General Family Medicine 08/03/13 Christy Sierra MD [address] [place] [address] Primary Staff Physician Cardiology 12/14/18 [place] [address] [place] [address] Radiation Oncology 06/23/22 Rohini Cody LISW 34885 [place] [address] Assistant Vice President Oncology 11/07/22 Schedule Maker Relationship Specialty Start Date End Date Norma Davies, APPLIANCES SAMPLE MAKER.SUPERVISOR [employer] [address] [place], [place] [phone] PCP - General Family Medicine 08/03/13 Christy Sierra MD [address] [place] [address] Primary Staff Physician Cardiology 12/14/18 [place] [address] [place] [address] Radiation Oncology 06/23/22 Rohini Cody LISW [address] [place] [address] Assistant Vice President Oncology 11/07/22 Team Status: Active Member Role Status Dates Dr. Rodger Nassar MD Family Provider Active Norma Davies SAWDUST DRIER, SAWDUST DRIER-C Primary Care Provider Active Team Status: Inactive Member Role Status Dates Norma Davies SAWDUST DRIER, SAWDUST DRIER-C Primary Care Pr ovider, Attending Provider, Referring Provider Active Team Status: Inactive Member Role Status Dates Norma Davies SAWDUST DRIER, SAWDUST DRIER-C Primary Care Provider, Attend ing Provider Active Schedule Maker Relationship Specialty Start Date End Date Norma Davies, APPLIANCES SAMPLE MAKER.SUPERVISOR [employer] [address] [place], [place] [phone] PCP - General Family Medicine 08/03/13 Christy Sierar MD [address] [place] [address] Primary Staff Physician Cardiology 12/14/18 [place] [address] [place] [address] Radiation Oncology 06/23/22 Rohini Cody LISW 86389 [place] [address] Assistant Vice President Oncology 11/07/22 Schedule Maker Relationship Specialty Start Date End Date Norma Davies, APPLIANCES SAMPLE MAKER.SUPERVISOR [employer] [address] [place], [place] [phone] PCP - General Family Medicine 08/03/13 Christy Sierra MD [address] [place] [address] Primary Staff Physician Cardiology 12/14/18 [place] [address] [place] [address] Radiation Oncology 06/23/22 Rohini Cody LISW [address]177 [place] [address] Assistant Vice President Oncology 11/07/22 Schedule Maker Relationship Specialty Start Date End Date Norma Davies, APPLIANCES SAMPLE MAKER.SUPERVISOR [employer] [address] [place], [place] [id number] PCP - General Family Medicine 08/03/13 Christy Sierra MD [address] [place] [address] Primary Staff Physician Cardiology 12/14/18 [place] [address] [place] [address] Radiation Oncology 06/23/22 Terri Codynifer CLARITA [address] [place] [address] Assistant Vice President Oncology 11/07/22 Schedule Maker Relationship Specialty Start Date End Date Norma Davies, APPLIANCES SAMPLE MAKER.SUPERVISOR [employer] [address] [id number] PCP - General Family Medicine 08/03/13 Christy Sierra MD [address] [place] [id number] Primary Staff Physician Cardiology 12/14/18 [place] [address] [place] [address] Radiation Oncology 06/23/22 Rohini Cody LISW [address] [place] [address] Assistant Vice President Oncology 11/07/22 Schedule Maker Relationship Specialty Start Date End Date Norma Davies, APPLIANCES SAMPLE MAKER.SUPERVISOR [employer] [address] [address] PCP - General Family Medicine 08/03/13 Christy Sierra MD [address] [place], [place] 5723395 Primary Staff Physician Cardiology 12/14/18 [place] [address] [place] [address] Radiation Oncology 06/23/22 Rohini Cody LISW [address]34[address] [place] [address] Assistant Vice President Oncology 11/07/22 Schedule Maker Relationship Specialty Start Date End Date Norma Davies, APPLIANCES SAMPLE MAKER.SUPERVISOR [employer] [address] [place] [address] PCP - General Family Medicine 08/03/13 Christy Sierra MD [address] [place] [address] Primary Staff Physician Cardiology 12/14/18 [place] [address] [place] [address] Radiation Oncology 06/23/22 Rohini Cody LISW [address] [place] [address] Assistant Vice President Oncology 11/07/22 Schedule Maker Relationship Specialty Start Date End Date Norma Davies, APPLIANCES SAMPLE MAKER.SUPERVISOR [employer] [address] [address] PCP - General Family Medicine 08/03/13 Christy Sierra MD [address] [place] [address] Primary Staff Physician Cardiology 12/14/18 [place] [address] [place] [address] Radiation Oncology 06/23/22 Rohini Cody LISW [address] [place] [address] Assistant Vice President Oncology 11/07/22 Schedule Maker Relationship Specialty Start Date End Date Norma Davies, APPLIANCES SAMPLE MAKER.SUPERVISOR [employer] [address] [place], [place] [phone] PCP - General Family Medicine 08/03/13 Christy Sierra MD [address] [place], [place] 2115195 Primary Staff Physician Cardiology 12/14/18 [place] [address] [place] [address] Radiation Oncology 06/23/22 Rohini Cody LISW 96001 [place] [address] Assistant Vice President Oncology 11/07/22 Schedule Maker Relationship Specialty Start Date End Date Norma Davies, APPLIANCES SAMPLE MAKER.SUPERVISOR [employer] [address] [place] [address] PCP - General Family Medicine 08/03/13 Christy Sierra MD [address] [place], [place] [phone] Primary Staff Physician Cardiology 12/14/18 [place] [address] [place] [address] Radiation Oncology 06/23/22 Rohini Cody LISW [address]1966 [place] [address] Assistant Vice President Oncology 11/07/22 Schedule Maker Relationship Specialty Start Date End Date Norma Davies, APPLIANCES SAMPLE MAKER.SUPERVISOR [employer] [address] [place], [place] [id number] PCP - General Family Medicine 08/03/13 Christy Sierra MD [address] [place] [address] Primary Staff Physician Cardiology 12/14/18 [place] [address] [place] [address] Radiation Oncology 06/23/22 Rohini Cody LISW [address] [place] [address] Assistant Vice President Oncology 11/07/22 Schedule Maker Relationship Specialty Start Date End Date Norma Davies, APPLIANCES SAMPLE MAKER.SUPERVISOR [employer] [address] [place], [place] [phone] PCP - General Family Medicine 08/03/13 Christy Sierra MD [address] [place] [address] Primary Staff Physician Cardiology 12/14/18 [place] [address] [place] [address] Radiation Oncology 06/23/22 Rohini Cody LISW [address] [place] [address] Assistant Vice President Oncology 11/07/22 Schedule Maker Relationship Specialty Start Date End Date Norma Davies, APPLIANCES SAMPLE MAKER.SUPERVISOR [employer] [address] [place], [place] [phone] PCP - General Family Medicine 08/03/13 Christy Sierra MD [address] [place] [address] Primary Staff Physician Cardiology 12/14/18 [place] [address] [place] [address] Radiation Oncology 06/23/22 Syedmerissa CLARITA [place] [address] [place] [address] Assistant Vice President Oncology 11/07/22 Schedule Maker Relationship Specialty Start Date End Date Norma Davies, APPLIANCES SAMPLE MAKER.SUPERVISOR [employer] [address] [place], [place] [phone] PCP - General Family Medicine 08/03/13 Christy Sierra MD [address] [place], [place] [phone] Primary Staff Physician Cardiology 12/14/18 [place] [address] [place] [address] Radiation Oncology 06/23/22 Syedmerissa Rohini TIE BUCKER [address] [place] [address] Assistant Vice President Oncology 11/07/22 Schedule Maker Relationship Specialty Start Date End Date Norma Davies, APPLIANCES SAMPLE MAKER.SUPERVISOR [employer] [address] [place] [address] PCP - General Family Medicine 08/03/13 Christy Sierra MD [address] [place], [place] [phone] Primary Staff Physician Cardiology 12/14/18 [place] [address] [place] [address] Radiation Oncology 06/23/22 Rohini Cody LISW [address]673 [place] [address] Assistant Vice President Oncology 11/07/22 Schedule Maker Relationship Specialty Start Date End Date Norma Davies, APPLIANCES SAMPLE MAKER.SUPERVISOR AL[employer]SEMBLY [address] [facility] [address] [place] [address] PCP - General Family Medicine 08/03/13 [place] [address] [place] [address] Primary Staff Physician Cardiology 12/14/18 [place] [address] [place] [address] Radiation Oncology 06/23/22 Rohini Cody LISW [address]654 [place] [address] Assistant Vice President Oncology 11/07/22 Schedule Maker Relationship Specialty Start Date End Date Norma Davies, APPLIANCES SAMPLE MAKER.SUPERVISOR [employer] [address] [address] PCP - General Family Medicine 08/03/13 Christy Sierra MD [address] [place] [address] Primary Staff Physician Cardiology 12/14/18 [place] [address] [place] [address] Radiation Oncology 06/23/22 Rohini Cody LISW [address] [place] [address] Assistant Vice President Oncology 11/07/22 Schedule Maker Relationship Specialty Start Date End Date Norma Davies, APPLIANCES SAMPLE MAKER.SUPERVISOR [employer] [address] [place], [place] [id number] PCP - General Family Medicine 08/03/13 Christy Sierra MD [address] [place], [place] [phone] Primary Staff Physician Cardiology 12/14/18 [place] [address] [place] [address] Radiation Oncology 06/23/22 Rohini Cody LISW 113[address] [place] [address] Assistant Vice President Oncology 11/07/22 Schedule Maker Relationship Specialty Start Date End Date Norma Davies, APPLIANCES SAMPLE MAKER.SUPERVISOR [employer] [address] [place], [place] [phone] PCP - General Family Medicine 08/03/13 Christy Sierra MD [address] [place], [place] [phone] Primary Staff Physician Cardiology 12/14/18 [place] [address] [place] [address] Radiation Oncology 06/23/22 Rohini Cody LISW [address]408 [place] [address] Assistant Vice President Oncology 11/07/22 Schedule Maker Relationship Specialty Start Date End Date Norma Davies, APPLIANCES SAMPLE MAKER.SUPERVISOR [employer] [address] [place], [place] [phone] PCP - General Family Medicine 08/03/13 Christy Sierra MD [address] [place], [place] [phone] Primary Staff Physician Cardiology 12/14/18 [place] [address] [place] [address] Radiation Oncology 06/23/22 Rohini Cody LISW [address]57 [place] [address] Assistant Vice President Oncology 11/07/22 Schedule Maker Relationship Specialty Start Date End Date Norma Davies, APPLIANCES SAMPLE MAKER.SUPERVISOR [employer]BL[employer] [address] [place] [address] PCP - General Family Medicine 08/03/13 Christy Sierra MD [address] [place] [address] Primary Staff Physician Cardiology 12/14/18 [place] [address] [place] [address] Radiation Oncology 06/23/22 Rohini Cody LISW [address] [place] [address] Assistant Vice President Oncology 11/07/22 Schedule Maker Relationship Specialty Start Date End Date Norma Davies, APPLIANCES SAMPLE MAKER.SUPERVISOR AL[employer]IN[employer]AT ASSEMBLY [address] [place], [place] [phone] PCP - General Family Medicine 08/03/13 Christy Sierra MD [address] [place] [address] Primary Staff Physician Cardiology 12/14/18 [place] [address] [place] [address] Radiation Oncology 06/23/22 Schedule Maker Relationship Specialty Start Date End Date Norma Davies, APPLIANCES SAMPLE MAKER.SUPERVISOR [employer] [address] [phone] PCP - General Family Medicine 08/03/13 Christy Sierra MD [address] [place] [address] Primary Staff Physician Cardiology 12/14/18 [place] [address] [place] [address] Radiation Oncology 06/23/22 Rohini Cody LISW [address]77 [place] [address] Assistant Vice President Oncology 11/07/22 Schedule Maker Relationship Specialty Start Date End Date Norma Davies, APPLIANCES SAMPLE MAKER.SUPERVISOR AL[employer]AT [employer]SEMBLY [address] [place] [address] PCP - General Family Medicine 08/03/13 Christy Sierra MD [address] [place] [address] Primary Staff Physician Cardiology 12/14/18 [place] [address] [place] [address] Radiation Oncology 06/23/22 Rohini Cody LISW [address] [place] [address] Assistant Vice President Oncology 11/07/22 Schedule Maker Relationship Specialty Start Date End Date Norma Davies, APPLIANCES SAMPLE MAKER.SUPERVISOR ALUMINUM BOAT ASSEMBLY [address] [place] [address] PCP - General Family Medicine 08/03/13 Christy Sierra MD [address] [place] [address] Primary Staff Physician Cardiology 12/14/18 [place] [address] [place] [address] Radiation Oncology 06/23/22 Rohini Cody LISW [address]96 [place] [address] Assistant Vice President Oncology 11/07/22 Schedule Maker Relationship Specialty Start Date End Date Norma Davies, APPLIANCES SAMPLE MAKER.SUPERVISOR AL[employer]BL[employer] [address] [address] PCP - General Family Medicine 08/03/13 Christy Sierra MD [address] [place] [address] Primary Staff Physician Cardiology 12/14/18 [place] [address] [place] [address] Radiation Oncology 06/23/22 Rohini Cody LISW [address] [place] [address] Assistant Vice President Oncology 11/07/22 Schedule Maker Relationship Specialty Start Date End Date Norma Davies, APPLIANCES SAMPLE MAKER.SUPERVISOR AL[employer]SEMBLY [address] [place], [place] [phone] PCP - General Family Medicine 08/03/13 Christy Sierra MD [address] [place], [place] [phone] Primary Staff Physician Cardiology 12/14/18 [place] [address] [place] [address] Radiation Oncology 06/23/22 Rohini Cody LISW [address] [place] [address] Assistant Vice President Oncology 11/07/22 Schedule Maker Relationship Specialty Start Date End Date Norma Davies, APPLIANCES SAMPLE MAKER.SUPERVISOR [employer] [address] [place] [address] PCP - General Family Medicine 08/03/13 Christy Sierra MD [address] [place] [address] Primary Staff Physician Cardiology 12/14/18 [place] [address] [place] [address] Radiation Oncology 06/23/22 Rohini Cody LISW [address] [place] [address] Assistant Vice President Oncology 11/07/22 Schedule Maker Relationship Specialty Start Date End Date Norma Davies, APPLIANCES SAMPLE MAKER.SUPERVISOR AL[employer]AT [employer]SEMBL[employer] [address] [place], [place] [phone] PCP - General Family Medicine 08/03/13 Christy Sierra MD [address] [place] [address] Primary Staff Physician Cardiology 12/14/18 [place] [address] [place] [address] Radiation Oncology 06/23/22 Rohini Cody LISW [address] [place] [address] Assistant Vice President Oncology 11/07/22 Schedule Maker Relationship Specialty Start Date End Date Norma Davies, APPLIANCES SAMPLE MAKER.SUPERVISOR AL[employer]AT [employer]SEMBLY [address] [place] [phone] PCP - General Family Medicine 08/03/13 Christy Sierra MD [address] [place] [address] Primary Staff Physician Cardiology 12/14/18 [place] [address] [place] [address] Radiation Oncology 06/23/22 Rohini Cody LISW [address] [place] [address] Assistant Vice President Oncology 11/07/22 Schedule Maker Relationship Specialty Start Date End Date Norma Davies, APPLIANCES SAMPLE MAKER.SUPERVISOR ALUMIN[employer]AT ASSEMBLY [address] [place], [place] [phone] PCP - General Family Medicine 08/03/13 Christy Sierra MD [address] [place] [address] Primary Staff Physician Cardiology 12/14/18 [place] [address] [place] [address] Radiation Oncology 06/23/22 Rohini Cody LISW [address]446 [place] [address] Assistant Vice President Oncology 11/07/22 Schedule Maker Relationship Specialty Start Date End Date Norma Davies, APPLIANCES SAMPLE MAKER.SUPERVISOR ALUMIN[employer]AT [employer]SEMBL[employer] [address] [place], [place] [phone] PCP - General Family Medicine 08/03/13 Christy Sierra MD [facility] [place] [id number] Primary Staff Physician Cardiology 12/14/18 [place] [address] [place] [address] Radiation Oncology 06/23/22 Rohini Cody LISW [address] [place] [address] Assistant Vice President Oncology 11/07/22 Schedule Maker Relationship Specialty Start Date End Date Norma Davies, APPLIANCES SAMPLE MAKER.SUPERVISOR ALUMIN[employer]AT [employer]SEMBLY [address] [place] [address] PCP - General Family Medicine 08/03/13 Christy Sierra MD [address] [place], [place] [phone] Primary Staff Physician Cardiology 12/14/18 [place] [address] [place] [address] Radiation Oncology 06/23/22 Rohini Cody LISW [address] [place] [address] Assistant Vice President Oncology 11/07/22 Schedule Maker Relationship Specialty Start Date End Date Norma Davies, APPLIANCES SAMPLE MAKER.SUPERVISOR ALUMINUM BOAT ASSEMBLY [address] [facility] [address] [place], [place] [phone] PCP - General Family Medicine 08/03/13 Christy Sierra MD [address] [place] [phone] Primary Staff Physician Cardiology 12/14/18 [place] [address] [place] [address] Radiation Oncology 06/23/22 Rohini Cody LISW [address] [place] [address] Assistant Vice President Oncology 11/07/22 Schedule Maker Relationship Specialty Start Date End Date Norma Davies, APPLIANCES SAMPLE MAKER.SUPERVISOR ALUMINUM BOAT ASSEMBLY [address] [facility] [address] [place] [address] PCP - General Family Medicine 08/03/13 Christy Sierra MD [address] [place] [address] Primary Staff Physician Cardiology 12/14/18 [place] [address] [place] [address] Radiation Oncology 06/23/22 Rohini Cody LISW [address] [place] [address] Assistant Vice President Oncology 11/07/22 Schedule Maker Relationship Specialty Start Date End Date Norma Davies, APPLIANCES SAMPLE MAKER.SUPERVISOR ALUM[employer]AT [employer]SEMBLY [address] [place], [place] [phone] PCP - General Family Medicine 08/03/13 Christy Sierra MD [address] [place], [place] [phone] Primary Staff Physician Cardiology 12/14/18 [place] [address] [place] [address] Radiation Oncology 06/23/22 Rohini Cody LISW [address] [place] [address] Assistant Vice President Oncology 11/07/22 Schedule Maker Relationship Specialty Start Date End Date Norma Davies, APPLIANCES SAMPLE MAKER.SUPERVISOR ALUMIN[employer]AT [employer]SEMBLY [address] [place] [address] PCP - General Family Medicine 08/03/13 Christy Sierra MD [address] [place], [place] 7638195 Primary Staff Physician Cardiology 12/14/18 [place] [address] [place] [address] Radiation Oncology 06/23/22 Rohini Cody LISW [address] [place] [address] Assistant Vice President Oncology 11/07/22 Schedule Maker Relationship Specialty Start Date End Date Norma Davies, APPLIANCES SAMPLE MAKER.SUPERVISOR AL[employer]SEMBLY [address] [place], [place] [phone] PCP - General Family Medicine 08/03/13 Christy Sierra MD [address] [place] [address] Primary Staff Physician Cardiology 12/14/18 [place] [address] [place] [address] Radiation Oncology 06/23/22 Rohini Cody LISW [address]124 [place] [address] Assistant Vice President Oncology 11/07/22 Schedule Maker Relationship Specialty Start Date End Date Norma Davies, APPLIANCES SAMPLE MAKER.SUPERVISOR AL[employer]IN[employer]AT [employer]SEMBLY [address] [place], [place] [phone] PCP - General Family Medicine 08/03/13 Christy Sierra MD [address] [place] [address] Primary Staff Physician Cardiology 12/14/18 [place] [address] [place] [address] Radiation Oncology 06/23/22 Rohini Cody LISW [address] [place] [address] Assistant Vice President Oncology 11/07/22 Schedule Maker Relationship Specialty Start Date End Date Norma Davies, APPLIANCES SAMPLE MAKER.SUPERVISOR AL[employer]AT ASSEMBLY [address] [place], [place] [phone] PCP - General Family Medicine 08/03/13 Christy Sierra MD [address] [place], [place] [phone] Primary Staff Physician Cardiology 12/14/18 [place] [address] [place] [address] Radiation Oncology 06/23/22 Rohini Cody LISW [address] [place] [id number] Assistant Vice President Oncology 11/07/22 Goals (unrecognized section and content) Goals may be documented in a n alternate sectionGoals may be documented in an alternate section (unrecognized sect ion and content) No Status Records FoundNo Status Records FoundNo Status Records FoundNo Status Records FoundNo Status Records Found INFORMATION SOURCE (unrecogn ized section and content) DATE CREATED AUTHOR 08/08/2022 [facility] DATE CREATED AUTHOR AUTHOR'S ORGANIZ ATION 02/21/2024 [facility] DATE CREATED AUTHOR AUTHOR'S ORGANIZ ATION 03/11/2024 [facility] DATE CREATED AUTHOR AUTHOR'S ORGANIZ ATION 03/04/2025 [facility] DATE CREATED AUTHOR AUTHOR'S ORGANIZ ATION 03/05/2025 [facility] FOR RECORDS PERTAINING TO PATIENTS WHO ARE OR HAVE BEEN ENROLLED IN A CHEMICAL DEPENDENCY/SUBSTANCEABUSE PROGRAM, SOME INFORMATION MAY BE OMITTED. This clinical summary was aggregated from multiple sources. Caution should be exercised in using it in the provision of clinical care. This summary normalizes information from multiple sources, and as a consequence, information in this document may materially change the coding, format and clinical context of patient data. In addition, data may be omitted in some cases. CLINICAL DECISIONS SHOULD BE BASED ON THE PRIMARY CLINICAL RECORDS. [facility]. provides no warranty or guarantee of the accuracy or completeness of information in this document.
[2025-03-09 22:19] LABS: Cholesterol 162 mg/dL (<=200); High Density Lipoprotein 48 mg/dL; Low Density Lipoprotein Calc. 97 mg/dL; Triglycerides 86 mg/dL; Very Low Density Lipoprotein 17 mg/dL (5-40); cholesterol:hdl ratio screen 3.37
[2025-03-09 22:36] LABS: Absolute Lymphocyte Count 1.32 X10^3/uL (0.83-4.51); Absolute Neutrophil Count 4.9 X10^3/uL (2.0-7.7); Basophil# 0.06 X10^3/uL; Basophil% 0.9 % (0-1); Eosinophil# 0.12 X10^3/uL; Eosinophils% 1.8 % (0-5); Hematocrit 42.3 % (40-54); Hemoglobin 13.7 g/dL (13.0-16.5); Lymphocyte # 1.32 X10^3/ul (0.83-4.51); Lymphocyte % 19.4 % (19-41); Mean Corp Hgb Conc 32.4 g/dL (32-36); Mean Corpuscular Hgb 30.6 pg (27.0-32.0); Mean Corpuscular Volume 94.4 fL (80-94); Mean Platelet Vol. 11.2 fl (6.2-12.0); Monocyte# 0.36 X10^3/uL; Monocyte% 5.3 % (0-10); NRBC Flagged by Analyzer 0 % (0-5); Neutrophil # 4.92 X10^3/uL (2.7-7.7); Platelet Count 164 K/mm3 (150-450); RBC Distribution Width CV 14.2 % (11.6-14.6); RBC Distribution Width SD 49.2 fl (35.1-43.9); Red Blood Count 4.48 M/mm3 (4.6-6.2); White Blood Count 6.8 K/mm3 (4.4-11.0)
[2025-03-09 22:40] LABS: ALB/GLOB Ratio 1.7 RATIO (0.9-2.4); Alanine Aminotransfer ALT/SGPT 56 U/L (<=46); Albumin, Serum 4.6 g/dL (3.4-4.8); Alkaline Phosphatase 108 U/L (40-129); Anion Gap 11 (5-15); BUN 24 mg/dL (4-19); BUN/Creat Ratio 24.4 RATIO (10-20); Calcium,Total 9.6 mg/dL (7.6-11.0); Carbon Dioxide 23.1 mmol/L (21.0-32.0); Chloride 108 mmol/L (98-108); Creatinine, Serum 0.97 mg/dL (0.70-1.20); EST Glomerular Filtration Rate 83 (>60); Globulin 2.7 g/dL (2.2-4.2); Glucose 90 mg/dL (70-99); Potassium 4.3 mmol/L (3.3-5.1); Protein, Total 7.3 g/dL (5.9-8.4); Sodium Level 143 mmol/L (133-145); Total Bilirubin 0.59 mg/dL (0.00-1.30)
[2025-03-10 01:02] LABS: AST(SGOT) 34 U/L (<=37)
== END | disposition home or self-care (01) ==
PROVIDERS: PCP Nurse Practitioner; Referring Provider Nurse Practitioner; Visit Provider Nurse Practitioner
DX: I10 Essential (primary) hypertension (principal); G47.31 Primary central sleep apnea; G47.429 Narcolepsy in conditions classified elsewhere without cataplexy; R97.20 Elevated prostate specific antigen [PSA]
CPT/HCPCS: 80053; 80061; 85025

== ENCOUNTER → 2025-05-08 | Outpatient (CLI) | payer MEDICARE, SELFPAY ==
--- OUTSIDE RECORDS SUMMARY | 2025-05-08 22:34 | XMS RPT_ITS | CCD ---
Author Organization [facility] Care Team Providers Care Smoking Pipe Driller And Threader Name Role Phone Samson BULB PLANTER.Norma LEWIS Primary Care Provide r Damian Nunn MD, Christy Unavailable [phone] Samson BULB PLANTER.Norma LEWIS Primary Care Provide r Damian Nunn MD, Christy Unavailable [phone] Hussein Ordonez MD Unavailable Samson BULB PLANTER.DEBBIE Norma L Primary Care Provide r DAVIES, NORMA L Primary Care Unavailable VAZQUEZ PAGE Referring Unavailable HUSSEIN ORDONEZ Referring Unavailable DAVIES, NORMA L Primary Care Unavailable DAVIES, NORMA L Primary Care Unavailable HUSSEIN ORDONEZ Referring Unavailable DAVIES, NORMA L Primary Care Unavailable DAVIES, NORMA L Referring Unavailable VAZQUEZ PAGE Attending Unavailable DAVIES, NORMA L Primary Care Unavailable DAVIES, NORMA L Referring Unavailable Davies BULB PLANTER.Corey LEWISa L Primary Care Provide r Damain Nunn MD, Christy Unavailable Hussein Ordonez MD Unavailable Samson BULB PLANTER.DEBBIE Norma L Primary Care Provide r Rohini Aponte Unavailable Damian Nunn MD, Christy Unavailable Samson BULB PLANTER.DEBBIE Norma L Primary Care Provide r SAMSON, NORMA L Primary Care Unavailable SELWYN MICHELLE Attending Unavailable HUSSEIN ORDONEZ Referring Unavailable DAVIES, NORMA L Primary Care Unavailable SELWYN MICHELLE Attending Unavailable Davies FBI PROFILER-C, Norma Primary Care Provider Davies FBI PROFILER-C, Norma Attending Provider Davies FBI PROFILER-C, Norma Referring Provider Davies FBI PROFILER, Norma Referring Unavailable Davies FBI PROFILER, Norma Attending Unavailable Davies FBI PROFILER, Norma Primary Care Unavailable DAVIES, NORMA L Primary Care Unavailable SELWYN LEIVA Attending Unavailable NATAN ALCAZAR Attending Unavailable DAVIES, NORMA L Primary Care Unavailable HUSSEIN ORDONEZ Attending Unavailable DAVIES, NORMA L Primary Care Unavailable NATAN ALCAZAR Attending Unavailable DAVIES, NORMA L Primary Care Unavailable NATAN ALCAZAR Referring Unavailable DAVIES, NORMA L Primary Care Unavailable NATAN ALCAZAR Attending Unavailable DAVIES, NORMA L Primary Care Unavailable DAVIES, NORMA L Primary Care Unavailable LEE WAYNE Attending Unavailable HUSSEIN ORDONEZ Attending Unavailable DAVIES, NORMA L Primary Care Unavailable DAVIES, NORMA L Primary Care Unavailable LEE WAYNE Referring Unavailable LEE WAYNE Attending Unavailable AFSANEH HAYES Attending Unavailable DAVIES, NORMA L Primary Care Unavailable LEE WAYNE Referring Unavailable MAYRA BUENROSTRO Attending Unavailable DAVIES, NORMA L Primary Care Unavailable MANNYSILHUSSEIN Referring Unavailable DAVIES, NORMA L Primary Care Unavailable VASHUSSEIN CARRASCO Referring Unavailable DAVIES, NORMA L Primary Care Unavailable VASSILHUSSEIN Referring Unavailable DAVIES, NORMA L Primary Care Unavailable VASSILHUSSEIN Referring Unavailable DAVIES, NORMA L Primary Care Unavailable VASSILHUSSEIN Referring Unavailable DAVIES, NORMA L Primary Care Unavailable VASSILHUSSEIN Referring Unavailable DAVIES, NORMA L Primary Care Unavailable VASSILJULIUSW Referring Unavailable DAVIES, NORMA L Primary Care Unavailable VASSILHUSSEIN Referring Unavailable DAVIES, NORMA L Primary Care Unavailable VASSILHUSSEIN Referring Unavailable DAVIES, NORMA L Primary Care Unavailable VASSILHUSSEIN Referring Unavailable DAVIES, NORAM L Primary Care Unavailable VASSIL HUSSEIN Referring Unavailable DAVIES, NORMA L Primary Care Unavailable DAVIES, NORMA L Primary Care Unavailable MAYRA BUENROSTRO Referring Unavailable DAVIES, NORMA L Primary Care Unavailable VASSILHUSSEIN Referring Unavailable DAVIES, NORMA L Primary Care Unavailable VASSIL, HUSSEIN Referring Unavailable DAVIES, NORMA L Primary Care Unavailable VASSIL, HUSSEIN Referring Unavailable DAVIES, NORMA L Primary Care Unavailable VASSIL, HUSSEIN Referring Unavailable DAVIES, NORMA L Primary Care Unavailable VASSIL, HUSSEIN Referring Unavailable DAVIES, NORMA L Primary Care Unavailable VASSIL, HUSSEIN Referring Unavailable DAVIES, NORMA L Primary Care Unavailable VASSIL, HUSSEIN Referring Unavailable DAVIES, NORMA L Primary Care Unavailable VASSIL, HUSSEIN Referring Unavailable DAVIES, NORMA L Primary Care Unavailable VASSIL, HUSSEIN Referring Unavailable DAVIES, NORMA L Primary Care Unavailable VASSIL, HUSSEIN Referring Unavailable DAVIES, NORMA L Primary Care Unavailable VASSIL, HUSSEIN Referring Unavailable DAVIES, NORMA L Primary Care Unavailable VASSIL, HUSSEIN Referring Unavailable DAVIES, NORMA L Primary Care Unavailable DAVIES, NORMA L Primary Care Unavailable VASSIL, HUSSEIN Referring Unavailable DAVIES, NORMA L Primary Care Unavailable VASSIL, HUSSEIN Referring Unavailable DAVIES, NORMA L Primary Care Unavailable VASSIL, HUSSEIN Referring Unavailable DAVIES, NORMA L Primary Care Unavailable VASSIL, HUSSEIN Referring Unavailable DAVIES, NORMA L Primary Care Unavailable VASSIL, HUSSEIN Referring Unavailable DAVIES, NORMA L Primary Care Unavailable VASSIL, HUSSEIN Referring Unavailable DAVIES, NORMA L Primary Care Unavailable VASSIL, HUSSEIN Referring Unavailable DAVIES, NORMA L Primary Care Unavailable VASSIL, HUSSEIN Referring Unavailable DAVIES, NORMA L Primary Care Unavailable MAYRA BUENROSTRO Referring Unavailable DAVIES, NORMA L Primary Care Unavailable DAVIES, NORMA L Primary Care Unavailable VASSIL, HUSSEIN Referring Unavailable VASSIL, HUSSEIN Referring Unavailable DAVIES, NORMA L Primary Care Unavailable VASSIL, HUSSEIN Referring Unavailable DAVIES, NORMA L Primary Care Unavailable VASSIL, HUSSEIN Referring Unavailable DAVIES, NORMA L Primary Care Unavailable VASSIL, HUSSEIN Referring Unavailable DAVIES, NORMA L Primary Care Unavailable VASSIL, HUSSEIN Referring Unavailable DAVIES, NORMA L Primary Care Unavailable VASSIL, HUSSEIN Referring Unavailable DAVIES, NORMA L Primary Care Unavailable VASSIL, HUSSEIN Referring Unavailable DAVIES, NORMA L Primary Care Unavailable VASSIL, HUSSEIN Referring Unavailable DAVIES, NORMA L Primary Care Unavailable VASSIL, HUSSEIN Referring Unavailable DAVIES, NORMA L Primary Care Unavailable VASSIL, HUSSEIN Referring Unavailable NORMA DAVIES Primary Care Unavailable Allergies Allergy Classification Reported Allergen(s) Allergy Type Date of Onset Reaction(s) Facility (19 sources) Amoxicillin; Translations: [AMOXICILLIN] Drug Allergy 01-12-2023 Rash, Shortness of Breath [facility] Work Phone: Medications Current Medications Medication Drug Class(es) Dates Sig (Normalized) Sig (Original) acetaminophen 325 mg oral tablet (20 sources) acetaminophen (TYLENOL) 325 mg tablet Take 650 mg by mouth as needed. Active Comment on above: Take 650 mg by mouth as needed. [id number] 200 actuat albuterol 0.09 mg/actuat metered dose inhaler (20 sources) beta2-Adrenergic Agonist Start: 03-03-2022 take 1 puff(s) by inhalation every four hours Albuterol Sulfate (Proair Hfa) 90 mcg/actuation HFA aerosol inhaler Active 2 PUFF INHALATION Q4H 20.1 90 March 03, 2022 3:41pm Start: 02-21-2020 End: 03-03-2022 Albuterol Sulfate (Proair Hf a) 90 mcg/actuation HFA aerosol inhaler Active 2 NMA INHALATION Q4H 20.1 90 March 03, 2022 3:41pm Start: 02-21-2020 End: 03-03-2022 take 1 puff(s) by inhalation every four hours Albuterol Sulfate (Proair Hfa) 90 mcg/actuation HFA aerosol inhaler Discontinued 2 PUFF INHALATION Q4H 20.1 90 February 26, 2021 6:25pm March 03, 2022 3:42pm Start: 02-03-2019 End: 01-29-2020 Albuterol Sulfate (Proair Hf a) 90 mcg/actuation HFA aerosol inhaler Discontinued 2 NMA INHALATION Q4H as needed for shortness of breath or wheezing 24 February 03, 2019 12:00am January 28, 2020 12:00am January 29, 2020 12:02am Start: 02-03-2019 End: 01-29-2020 take 1 puff(s) by inhalation every four hours Albuterol Sulfate (Proair Hfa) 90 mcg/actuation HFA aerosol inhaler Discontinued 2 PUFF INHALATION Q4H February 03, 2019 5:13pm January 29, 2020 [...] before dental procedure. Take 1 capsule by [facility] every 8 hours for 10 days. BIPAP (20 sources) Start: 11-26-2020 BIPAP ASV Adaptive Servo-Ventilation (ASV) with end-expiratory [...] supply patient with Full face mask, [employer] [place] VIP [phone]. 1 0 07/01/2007 Active Comment on above: Please supply patien t with Full face mask, [employer] [place] VIP [phone]. ASV Adaptive Servo-V entilation (ASV) with end-expiratory pressure (EEP) of 9 cmH2O and variable pressure support of 3-10 cmH2O. mask (pt pref), chin strap, heated tubing & humidity, filters. Lifetime supplies. APRIL: G47.33. celecoxib 200 mg oral capsule (20 sources) Nonsteroidal Anti-inflammatory Drug Start: 03-03-2022 End: 03-09-2025 take 1 capsule by mouth twice daily Celecoxib (Celebrex) 200 mg capsule Active 200 mg PO TWICE A DAY 180 March 09, 2025 7:27pm Start: 02-26-2021 End: 10-11-2021 take 1 capsule by mouth twice daily Celecoxib 200 mg capsule Discontinued 200 mg PO TWICE A DAY 180 February 26, 2021 12:00am October 11, 2021 7:47pm take 1 capsule by [facility] once daily celecoxib (CELEBREX) 200 mg capsule Take 200 mg by mouth once daily. Active Comment on above: Take 200 mg by mouth twice daily. 60 actuat fluticasone propionate 0.25 mg/actuat / salmeterol 0.05 mg/actuat dry powder inhaler (7 sources) Corticosteroid, beta2-Adrenergic Agonist Start: 03-01-2024 Fluticasone Propion-Salmeterol (Advair Diskus) 250-50 mcg/dose blister with device Active 1 NMA INHALATION TWICE A DAY 60 March 01, 2024 7:07pm Start: 07-26-2021 Fluticasone Pr opion-Salmeterol (Advair Diskus) 250-50 mcg/dose blister with device Active 1 INH INHALATION TWICE A DAY July 26, 2021 11:40am Start: 07-26-2021 End: 03-01-2024 Fluticasone Propion-Salmeter ol (Advair Diskus) 250-50 mcg/dose blister with device Discontinued 1 NMA INHALATION TWICE A DAY July 26, 2021 12:00am March 01, 2024 7:09pm Start: 07-26-2021 Fluticasone Pr opion-Salmeterol (Advair Diskus) 250-50 mcg/dose blister with device Active 1 INH INHALATION TWICE A DAY July 26, 2021 12:00am Start: 02-03-2019 End: 01-29-2020 Fluticasone Propion-Salmeter ol Discontinued 1 INH INHALATION TWICE A DAY 180 February 03, 2019 5:13pm January 29, 2020 12:02am Start: 02-03-2019 End: 01-29-2020 Fluticasone Propion-Salmeter ol 250-50 mcg/dose blister with device Discontinued 1 NMA INHALATION TWICE A DAY 180 February 03, 2019 12:00am January 28, 2020 12:00am January 29, 2020 12:02am Start: 02-03-2019 End: 01-29-2020 Fluticasone Propion-Salmeter ol Discontinued 1 INH INHALATION TWICE A DAY 180 February 03, 2019 12:00am January 29, 2020 12:02am furosemide 20 mg oral tablet (20 sources) Loop Diuretic Start: 12-14-2022 take 1 tablet by mouth once daily furosemide (LASIX) 20 mg tablet Take 1 tablet by mouth once daily. 5 tablet 12/14/2022 Active Start: 10-11-2021 End: 03-01-2024 take 1 tablet by mouth once daily Furosemide 40 mg tablet Discontinued 40 mg PO DAILY December 15, 2022 6:33pm March 01, 2024 7:06pm Comment on above: Take 1 tablet by chelsey once daily. gabapentin 100 mg oral capsule (20 sources) Anti-epileptic Agent Start: 07-05-20 End: 07-15-20 take 1 capsule by mouth three times [...] daily March 06, 2023 6:09pm Start: 12-13-2014 End: 03-09-2025 take 1 tablet by mouth once daily lisinopril-hydrochlorothiazide (PRINZIDE,ZESTORETIC) 20-12.5 mg per [...] tablet 3 02/02/2024 Active Start: 02-26-2021 End: 03-01-2024 take 1 tablet by mouth twice daily Hydroxychloroquine 200 mg tablet Discontinued 200 mg PO TWICE A DAY 120 March 06, 2023 12:00am March 01, 2024 7:04pm iv contrast (will be provide d with [...] in the MR contrast administration guidelines link. modafinil 200 mg oral tablet (20 sources) Sympathomimetic-like Agent Start: 9 End: 5 take 1 tablet by mouth twice daily Modafinil 200 mg tablet Active 200 mg PO TWICE A DAY 60 March 09, 2025 7:27pm Start: 09-14-2007 modafinil(PROV IGIL 200 MG TAB) Take one(1) tablet daily in the morning. 90 1 09/14/2007 Active Comment on above: Take one(1) tablet d aily in the morning. oxyCODONE hydrochloride 5 mg oral tablet (9 sources) Opioid Agonist Start: 8 End: 2 take 1 tablet by mouth every four [...] above: Take 1 tablet by chelsey th every 4 hours as needed for Pain (post op acute pain) for up to 7 days. Earliest Fill Date: 07/29/18 pantoprazole 40 mg delayed release oral tablet (20 sources) Proton Pump Inhibitor Start: 7 End: 5 take 1 tablet by mouth once daily pantoprazole (PROTONIX) 40 mg ORAL TbEC Take one(1) tablet daily. 0 07/01/2007 Active Comment on above: Take one(1) tablet d aily. predniSONE 20 mg oral tablet (13 sources) Start: 5 End: 5 take 1 tablet by mouth three times daily, then take 1 tablet by mouth twice daily, then take 1 tablet by mouth once daily predniSONE (DELTASONE) 20 mg tablet Take 1 tablet by mouth three times a day for 3 days, THEN 1 tablet two times a day for 3 days, THEN 1 tablet once daily for 3 days. 18 tablet 04/21/2025 04/30/2025 Active Start: 03-07-2024 End: 03-09-2025 take 2 tablets by mouth once daily Prednisone 20 mg tablet Discontinued 40 mg PO DAILY March 07, 2024 12:00March 09, 2025 7:28pm Start: 12-15-2022 End: 03-06-2023 take 2 tablets by mouth once daily Prednisone 20 mg tablet Discontinued 40 mg PO DAILY December 15, 2022 12:00am March 06, 2023 6:08pm Start: 12-15-2022 End: 03-06-2023 take 40 mg by mouth once daily Prednisone Discontinued 40 MG PO DAILY December 15, 2022 12:00am March 06, 2023 6:08pm Start: 07-25-2021 End: 10-11-2021 take 2 tablets by mouth once daily Prednisone 20 mg tablet Discontinued 40 mg PO DAILY July 25, 2021 12:00am October 11, 2021 7:46pm Start: 07-25-2021 End: 10-11-2021 take 40 mg by mouth once daily Prednisone Discontinued 40 MG PO DAILY July 25, 2021 6:57pm October 11, 2021 7:46pm Start: 11-07-2019 End: 11-17-2019 take 2 tablets by mouth once daily Prednisone 20 mg tablet Discontinued 40 mg PO DAILY 17 07November 07, 2019 1:00am November 16, 2019 1:00am November 17, 2019 1:08am Start: 11-07-2019 End: 11-17-2019 take 40 mg by mouth once daily Prednisone Discontinued 40 MG PO DAILY 17 07November 07, 2019 10:00pm November 17, 2019 1:08am Start: 07-04-2019 End: 07-14-2019 take 2 tablets by mouth once daily Prednisone 20 mg tablet Discontinued 40 mg PO DAILY 17 07July 04, 2019 12:00am July 13, 2019 12:00am July 14, 2019 12:07am Start: 07-04-2019 End: 07-14-2019 take 40 mg by mouth once daily Prednisone Discontinued 40 MG PO DAILY 17 07July 04, 2019 5:07pm July 14, 2019 12:07am rivaroxaban 10 mg oral tablet (11 sources) Factor Xa Inhibitor Start: 08-27-2018 End: 06-19-2022 take 1 tablet by mouth once daily rivaroxaban (XARELTO) 10 mg tablet Indications: Thrombophlebitis of superficial veins of left lower extremity , Venous (peripheral) insufficiency Take 1 tablet by mouth once daily. 30 tablet 0 08/27/2018 06/19/2022 Discontinued Comment on above: Take 1 tablet by chelsye once daily. tamsulosin hydrochloride 0.4 mg oral capsule (20 sources) alpha-Adrenergi c Elier Start: 12-23-2024 take 1-2 tablets by mouth once daily tamsulosin (FLOMAX) 0.4 mg By mouth, take 1-2 tablets daily (to aid in urination flow) 180 capsule 3 12/23/2024 Active Start: 03-01-2024 End: 03-09-2025 take 1 capsule by mouth twice daily Tamsulosin 0.4 mg capsule Discontinued 0.4 mg PO TWICE A DAY 180 March 01, 2024 7:08pm March 09, 2025 7:29pm Start: 03-06-2023 End: 03-01-2024 take 1 capsule by mouth once daily Tamsulosin 0.4 mg capsule Discontinued 0.4 mg PO DAILY March 06, 2023 12:00am March 01, 2024 7:06pm Start: 10-23-2022 End: 12-23-2024 take 2 capsules [...] daily. 30 minutes after meal V-PAP MACHINE (3 sources) Start: 05-18-2018 V-PAP MACHINE Active May 18, 2018 2:31pm Patient should be able to order own supplies for mask tubing and straps Start: 05-18-2018 V-PAP MACHINE Active May 18, 2018 12:00am Patient should be able to order own supplies for mask tubing and straps Completed/Discontinued Medications Medication Drug Class(es) Dates Sig (Normalized) Sig (Original) amoxicillin 875 mg / clavulanate 125 mg oral tablet (3 sources) Penicillin-class Antibacterial Start: 03-03-2022 End: 12-15-2022 Amoxicillin-Pot Clavulanate 875-125 mg tablet Discontinued 1 {tbl} PO TWICE A DAY March 03, 2022 12:00am December 15, 2022 6:22pm Start: 03-03-2022 End: 12-15-2022 take 1 tablet by mouth twice daily Amoxicillin-Pot Clavulanate Active 1 TABLET PO TWICE A DAY March 03, 2022 3:45pm azithromycin 250 mg oral tablet (3 sources) Macrolide Antimicrobial Start: 11-07-2019 End: 11-12-2019 take 2 tablets by mouth once daily, then take 1 tablet by mouth once daily at mealtime Azithromycin 250 mg tablet Discontinued 250 mg PO daily 6 November 07, 2019 1:00am November 11, 2019 1:00am November 12, 2019 1:09am 2 po qd [...] thasone sodium phosphate 12 mg injection (CELESTONE) dicloxacillin 500 mg oral capsule (1 source) Penicillin-class Antibacterial Start: 12-10-2022 End: 12-11-2022 take 1 capsule by mouth four times daily dicloxacillin (DYNAPEN) 500 mg capsule Take 1 capsule by mouth four times daily for 10 days. 40 capsule 0 12/10/2022 12/11/2022 Discontinued Comment on above: Take 1 capsule by [facility] four times daily for 10 days. doxycycline hyclate 100 mg oral capsule (9 sources) Tetracycline-class Drug Start: 07-25-2021 End: 10-11-2021 take 1 capsule by mouth twice daily Doxycycline Hyclate 100 mg capsule Discontinued 100 mg PO TWICE A DAY July 25, 2021 12:00am October 11, 2021 7:47pm Start: 11-17-2019 End: 11-22-2019 take 1 tablet by mouth twice daily Doxycycline Hyclate 100 mg tablet Discontinued 100 mg PO TWICE A DAY 07 02November 17, 2019 1:00am November 21, 2019 1:00am November 22, 2019 1:08am Start: 07-04-2019 End: 11-07-2019 take 1 tablet by mouth twice daily Doxycycline Hyclate 100 mg tablet Discontinued 100 mg PO TWICE A DAY July 04, 2019 12:00am November 07, 2019 9:58pm 10 ml lidocaine [...] (1 % ) 3 mL injection (XYLOCAINE) loperamide hydrochloride 0.133 mg/ml oral suspension (20 sources) Opioid Agonist Start: 12-15-2022 End: 03-01-2024 Loperamide (Imodium A-D) 1 mg/7.5 mL liquid Discontinued 2 mg PO every 1 to 4 hours as needed December 15, 2022 12:00am March 01, 2024 7:04pm On Hold: MD Ordered administer after each loose stool until symptoms controlled; do not exceed 16 mg per 24 hrs End: 09-25-2023 loperamide HCl (IMODIUM A-D ORAL) Take by mouth. 09/25/2023 Discontinued (.All criteria met for discontinuation) loperamide HCl ( IMODIUM A-D ORAL) Take by mouth. 0 Active Comment on above: Take by mouth. meloxicam 15 mg oral tablet (6 sources) Nonsteroidal Anti-inflammatory Drug Start: 2018 End: 2020 take 1 tablet by mouth once daily Meloxicam 15 mg tablet Discontinued 15 mg PO daily 90 February 21, 2020 6:39pm February 26, 2021 6:24pm methylPREDNISolone (18 sources) Corticosteroid Start: 2022 methylPREDNISolone (MEDROL, JOSE MANUEL,) 4 mg Dose-Pack [...] on above: As Instructed per rachel abreu mupirocin 0.02 mg/mg topical ointment (2 sources) RNA Synthetase Inhibitor Antibacterial Start: 12-15-2022 End: 03-01-2024 Mupirocin 2 % ointment Discontinued 1 NMA TOPICAL THREE TIMES A DAY December 15, 2022 12:00am March 01, 2024 7:04pm omega-3 fatty acids/fish oil (OMEGA 3 FISH OIL ORAL) (8 sources) End: 04-21-2025 omega-3 fatty acids/fish oil (OMEGA 3 FISH OIL ORAL) Take by mouth once daily. 04/21/2025 Discontinued (Course of therapy completed) omega-3 fatty ac ids/fish oil (OMEGA 3 FISH OIL ORAL) Take by mouth once daily. Active oseltamivir 75 mg oral capsule (3 sources) Neuraminidase Inhibitor Start: 11-07-2019 End: 11-12-2019 take 1 capsule by mouth twice daily Oseltamivir 75 mg capsule Discontinued 75 mg PO TWICE A DAY 10 November 07, 2019 1:00am November 11, 2019 1:00am November 12, 2019 1:09am 20 ml ropivacaine hydrochloride 5 mg/ml injection [...] mg / trimethoprim 160 mg oral tablet (8 sources) Dihydrofolate Reductase Inhibitor Antibacterial, Sulfonamide Antimicrobial Start: 02-19-2024 End: 02-19-2024 sulfamethoxazole-trimethopri m 800-160 mg 1 tablet (BACTRIM DS) Start: 03-06-2021 End: 10-11-2021 Sulfamethoxazole-Trimethopri m 800-160 mg tablet Discontinued 1 {tbl} PO TWICE A DAY 60 March 06, 2021 12:00am October 11, 2021 7:46pm Start: 03-06-2021 End: 10-11-2021 take 1 tablet by mouth twice daily Sulfamethoxazole-Trimethoprim Discontinu ed 1 TABLET PO TWICE A DAY 60 March 06, 2021 4:59pm October 11, 2021 7:46pm Start: 02-22-2020 End: 03-03-2020 Sulfamethoxazole-Trimethopri m 800-160 mg tablet Discontinued 1 {tbl} PO TWICE A DAY 17 07February 22, 2020 12:00am March 02, 2020 12:00am March 03, 2020 12:02am Start: 02-22-2020 End: 03-03-2020 take 1 tablet by mouth twice daily Sulfamethoxazole-Trimethoprim Discontinu ed 1 TABLET PO TWICE A DAY 17 07February 22, 2020 1:36pm March 03, 2020 12:02am Tirzepatide (Mounjaro) 2.5 mg/0.5 mL pen injector (1 source) Start: 03-03-2024 End: 03-09-2025 Tirzepatide (Mounjaro) 2.5 mg/0.5 mL pen injector Discontinued 2.5 mg SC EVERY WEEK 2 March 03, 2024 12:00am March 09, 2025 7:29pm Tirzepatide (Weight Loss) (1 source) Start: 03-01-2024 End: 03-03-2024 Tirzepatide (Weight Loss) 2.5 mg/0.5 mL pen injector Discontinued 2.5 mg SC EVERY WEEK 11 25March 01, 2024 12:00am March 03, 2024 12:21pm 1 ml triamcinolone acetonide 40 mg/ml injection [...] 1000, Until 08/02/24 at 1000 V-PAP Machine (6 sources) Start: 05-18-2018 End: 05-18-2018 V-PAP Machine [...] Problem Date Documented Da te Episodic/Chronic Asthma (3 sources) Asthmatic bronchitis; Translations: [Unspecified asthma, uncomplicated] 07-25-2021 Chronic Cancer of prostate (20 sources) Malignant tumor of prostate; Translations: [Malignant neoplasm of prostate] Onset: 2 Chronic Cataract (20 sources) Nuclear senile cataract; Translations: [Age-related nuclear cataract, unspecified eye] Onset: 6 04-03-2016 Chronic Chronic obstructive pulmonary disease and bronchiectasis (3 sources) Bronchitis; Translations: [Bronchitis, not specified as acute or chronic] 07-04-2019 Episodic Diabetes mellitus without complication (2 sources) Hyperglycemia; Translations: [Hyperglycemia, unspecified] 03-06-2023 Episodic E Codes: Adverse effects of medical drugs (2 sources) Adverse reaction to drug; Translations: [Adverse effect [...] urinary tract symptoms] Onset: 2 Chronic Influenza (3 sources) Influenza; Translations: [Influenza due to unidentified [...] aftercare (2 sources) Patient encounter status; Translations: [nursing home (current) use of non-steroidal anti-inflammatories (NSAID)] 12-14-2023 Episodic Other connective tissue disease (20 sources) History of total knee arthroplasty; Translations: [Presence of unspecified artificial knee joint] Onset: 8 07-01-2018 Chronic Other connective tissue disease (1 source) Presence of right artificial knee joint; Translations: [Status post total right knee replacement] Onset: 8 Chronic Other connective tissue disease (3 sources) Swelling of hand; Translations: [Other specified [...] [Pain in right hand] 08-02-2024 Episodic Other diseases of bladder and urethra (3 sources) Bladder neck obstruction; 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] 12-17-2023 Chronic Other diseases of bladder and urethra (1 source) Bladder-neck obstruction; 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] Onset: Chronic Other fractures (1 source) Compression fracture of thoracic spine; Translations: [Wedge compression fracture of unspecified thoracic vertebra, initial encounter for closed fracture] 03-01-2024 Episodic Other gastrointestinal disorders (1 source) Diarrhea; Translations: [Diarrhea, unspecified] Episodic Other injuries and conditions due to external causes (1 source) Injury of intestine; Translations: [Radiation sickness, unspecified, sequela] 06-24-2024 Episodic Other lower respiratory disease (3 sources) Dyspnea; Translations: [Shortness of breath] 07-04-2019 Episodic Other lower respiratory disease (3 sources) Breathing painful; Translations: [Chest pain on [...] 6 04-29-2016 Chronic Other nervous system disorders (3 sources) Cataplexy and narcolepsy; 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] 02-03-2019 Chronic Other nervous system disorders (4 sources) Carpal tunnel syndrome of left wrist; Translations: [Carpal tunnel syndrome, left upper limb] 03-29-2024 Chronic Other non-traumatic joint disorders (5 sources) Multiple joint pain; Translations: [Pain in unspecified joint] 02-03-2019 Episodic Other non-traumatic joint disorders (5 sources) Hip pain; Translations: [Pain in left hip] 04-10-2023 Episodic Other non-traumatic joint disorders (3 sources) Pain in left knee; Translations: [Pain in joint, lower leg] Onset: 5 03-03-2025 Episodic Other non-traumatic joint disorders (1 source) Pain in left hip; Translations: [Left hip pain] Onset: 5 Episodic Other nutritional; endocrine; and metabolic disorders [...] (BMI) 40.0-44.9, adult; Translations: [BMI 40.0-44.9, adult (HCC)] Onset: 9 Chronic Other nutritional; endocrine; and metabolic disorders (1 source) Morbid obesity; Translations: [Morbid (severe) obesity due to excess calories] 03-10-2024 Chronic Other nutritional; endocrine; and metabolic disorders (1 source) Weight increased; Translations: [Abnormal weight gain] 03-02-2024 Episodic Other screening for suspected conditions (not mental disorders or infectious disease) (3 sources) Raised prostate specific antigen; Translations: [Elevated prostate specific antigen [PSA]] 03-08-2020 Episodic Other upper respiratory infections (3 sources) Acute maxillary sinusitis; Translations: [Acute maxillary sinusitis, unspecified] 03-03-2022 Episodic Peripheral and visceral atherosclerosis (20 sources) Peripheral vascular disease; Translations: [Peripheral vascular disease, unspecified] Onset: 3 Chronic Residual codes; unclassified (20 sources) Obstructive sleep apnea syndrome; Translations: [Obstructive sleep apnea (adult) (pediatric)] Onset: 7 05-10-2007 Chronic Residual codes; unclassified (3 sources) Central sleep apnea syndrome; Translations: [Primary central sleep apnea] 02-03-2019 Chronic Comment on above: Uses his CPAP daily and is very compliant Residual codes; unclassified (4 sources) Pain; Translations: [Pain, unspecified] Episodic Residual codes; unclassified (1 source) Hot flash due to medication; Translations: [Flushing] Episodic Residual codes; unclassified (2 sources) Bilateral lower limb edema; Translations: [Localized edema] 12-15-2022 Episodic Skin and subcutaneous tissue infections (3 sources) Cellulitis; Translations: [Cellulitis, unspecified] 10-14-2021 Episodic Spondylosis; intervertebral disc disorders; other back problems (4 sources) Lumbago-sciatica due to displacement of lumbar intervertebral disc; Translations: [Other intervertebral disc displacement, lumbosacral region] Onset: 5 04-10-2023 Chronic Spondylosis; intervertebral disc disorders; other back problems (3 sources) Pain in thoracic spine; Translations: [Pain in thoracic spine] 03-01-2024 Episodic Unclassified (1 source) Left knee pain, unspecified chronicity 02-27-2025 Past or Other Problems Problem Classification Problem Date Documented Da te Episodic/Chronic Allergic reactions (20 sources) Disorder of skin and/or subcutaneous tissue; Translations: [Other specified disorders of the skin and subcutaneous tissue related to radiation] Onset: 4 07-14-2024 Episodic Anal and rectal conditions (20 sources) Anal fissure; Translations: [Anal fissure, unspecified] Onset: 6 07-14-2016 Episodic Cancer of prostate (2 sources) Personal history of malignant neoplasm of prostate; Translations: [History of prostate cancer] Onset: 4 Episodic Fever of unknown origin (20 sources) [...] Onset: 8 Resolved: 6 11-14-2015 Episodic Other aftercare (1 source) Encounter for [...] [Right hand pain] Onset: 4 Episodic Other connective tissue disease (1 source) Pain in unspecified foot; Translations: [Foot pain] Onset: 5 Episodic Other nervous system disorders (20 sources) [...] specified postprocedural states] Onset: 6 04-03-2016 Episodic Sprains and strains (1 source) Sprain of unspecified ligament of unspecified ankle, initial encounter; Translations: [Ankle sprain] Onset: 5 Episodic Unclassified (2 sources) Rotator Cuff Repair ahsan shoulders 04-27-2022 Urinary tract infections (20 sources) Irradiation cystitis; Translations: [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 Author Type: Physical Therapist Type: [id number] Filed: 05/03/2025 13:45 Note Text: [facility] Physical Therapy Plan of Care Certification Patient Name: Sylvie Chiu : 1950 [facility]CF #: [id number] Date: 05/03/2025 To: Mayra Buenrostro PA-C From Therapist: Asif Wharton PT RE: Patient Certification/ Recertification Your review, approval and electronic signature are required in order to comply with Payor: [employer]ICARE / Plan: [employer] MEDICARE PPO / Product Type: PPO / regulations. The identified Physical Therapy PLAN OF CARE for the patient is as follows: M51.27 Lumbago-sciatica due to displacement of lumbar intervertebral disc (primary encounter diagnosis) PLAN OF CARE: Assessment: Sylvie Chiu presents with chief complaint of L posterior hip/buttock pain with pain and paresthesias of the L lateral thigh, medel, and foot that interferes with sleep, lay on back, lay on his L side, rolling in bed, sitting, standing, and remodeling his home... The patient presents with impairments in ADL's, balance, flexibility, gait, independence in exercise, overall function, patient reported outcome measures, posture, range of motion, sensation, and strength. PROMIS? (Patient-Reported Outcomes Measurement Information System) scores were reviewed and identified as a rehabilitation concern. Prognosis for therapy is Good due to: current objective clinical presentation, within-session changes . The patient will benefit from skilled therapy services to meet the goals established for this plan of care as noted below. Classification Pain Mechanism Classification: Neuropathic Low Back Pain Classification: Symptom Modulation Goals for Episode of Care: established 05/03/25 Patient reported outcome of physical function will increase T-score by a minimum 5 points. [place] in home exercise program. Patient will decrease pain rating by 2 points to meet minimal clinical important difference for numeric pain rating scale. Patient will increase active trunk ROM to 80% or greater in all planes without pain to allow pt to improve performance of ADLs. Patient will demonstrate increase in B hip strength to 5/5 during manual muscle testing in order to improve function for standing and home remodeling activities. Patient will increase flexibility of his hip rotators to mild restrictions or less to decrease pain. Perform sleeping activities and bed mobility without pain. Patient will improve 5 time sit to stand to demonstrate improvement in functional lower extremity strength. Patient Goals: Eliminate pain and get back to where I was. Time Frame for Goals and Treatment : 07/03/25 Planned Interventions, Frequency, and Duration: Current Frequency: 2x/week Duration: 6 weeks Total Number of Visits Planned: 12 Planned Treatment Interventions: Therapeutic exercise (72919), Neuromuscular re-education (20867), Therapeutic activities (52442), Manual therapy (77106), Self-correction management (29423), Patient/Family/Caregiver Education, General Conditioning PLAN FOR NEXT VISIT: Assess the patient's response to his PT evaluation and HEP. Begin a rehabilitation program with emphasis on improving his lumbar paraspinal, hip rotator, and hamstring flexibility, as well as lower abdominal and hip strengthening in all planes, just avoiding long axis hip extension until his pelvic stability improves. Patient demonstrates good understanding of plan of care and treatment. The above goals and plan of care were discussed and agreed upon by patient/family. For further details regarding this patient refer to the Physical Therapy electronically documented visit dated 05/03/2025. Provider Attestation I have reviewed the treatment plan for Sylvie Chiu, [facility]# [id number] for the period of 05/03/25 -- 08/01/25, established on 05/03/2025. Signature certifies the need for therapy services. [facility] CNTHERAPYon 05-03-2025 CNTHERAPY OT/PT/Speech Visit (PTMCRM) -- SYLVIE CHIU ([id number]) 1950 [place] Date Time Provider Department 05/03/25 10:00 AM ASIF WHARTON [facility] Date Time Provider Department Center 05/03/2025 10:00 AM [id number], COLIN [facility] Reason for Visit: PT Eval [477] Patient Education [91] Primary Visit Diagnosis:Lumbago-sciatica due to displacement of lumbar intervertebral disc [M51.27] Allergies As of Date: 05/03/2025 (No Known Allergies) Date Reviewed: 04/21/2025 Reviewed by: Maribell Sykes MA - Fully Assessed Prescriptions as of 05/03/2025 - tamsulosin (FLOMAX) 0.4 mg By mouth, take 1-2 tablets daily (to aid in urination flow) - gabapentin (NEURONTIN) 100 mg capsule Take 1 capsule by mouth three times a day for 10 days. - celecoxib (CELEBREX) 200 mg capsule Take [...] instructed as needed. hot humid weather - lisinopril-hydrochlorothia zide (PRINZIDE,ZESTORETIC) 20-12.5 mg per tablet Take 1 tablet by mouth once daily. - modafinil(PROVIGIL 200 MG TAB) Take one(1) tablet daily in the morning. - pantoprazole (PROTONIX) 40 mg ORAL TbEC Take one(1) tablet daily. - BIPAP Please supply patient with Full face mask, Santana Nassarolph VIP [phone]. Lens Cleaner: Therapy (PT/OT/Speech/Resp) ID: [id number] 05/03/2025 10:49 AM Author: ASIF WHARTON Signed by ASIF WHARTON PT on 05/03/2025 at 10:49 AM Document text: Program_ID:[id number] Access Code: [email or web address] URL: [email or web address] Date: 05-03-2025 Prepared By: Asif Wharton Program Notes Exercises - Supine Figure 4 Piriformis Stretch - 1-2 x daily - 7 x weekly - 3 sets - 1 reps - Supine Piriformis Stretch with Foot on Ground - 1-2 x daily - 7 x weekly - 3 sets - 1 reps - Supine March - 1-2 x daily - 7 x weekly - 2-3 sets - 10 reps - Supine Hip Adduction Isometric with Ball - 1-2 x daily - 7 x weekly - 2-3 sets - 10 reps - Hooklying Isometric Hip Abduction with Belt - 1-2 x daily - 7 x weekly - 2-3 sets - 10 reps [facility] THERAPY NTon 05-03-2025 THERAPY NT HNO ID: [id number] Author: ASIF WHARTON, PT Service: ? Author Type: Physical Therapist Type: Therapy (PT/OT/Speech/Resp) Filed: 05/03/2025 10:49 Note Text: Program_ID:[id number] Access Code: [email or web address] URL: [email or web address] Date: 05-03-2025 Prepared By: Asif Wharton Program Notes Exercises - Supine Figure 4 Piriformis Stretch - 1-2 x daily - 7 x weekly - 3 sets - 1 reps - Supine Piriformis Stretch with Foot on Ground - 1-2 x daily - 7 x weekly - 3 sets - 1 reps - Supine November - 1-2 x daily - 7 x weekly - 2-3 sets - 10 reps - Supine Hip Adduction Isometric with Ball - 1-2 x daily - 7 x weekly - 2-3 sets - 10 reps - Hooklying Isometric Hip Abduction with Belt - 1-2 x daily - 7 x weekly - 2-3 sets - 10 reps [facility] CNOVon 04-21-2025 CNOV Office Visit (ORMDNA ) -- SYLVIE CHIU ([id number]) 1950 M [place] Date Time Provider Department 04/21/25 10:00 AM MAYRA BUENROSTRO During your visit today, we recorded the following information about you: Mayra Buenrostro PA-C 04/21/2025 12:55 PM Signed CONSULT ORTHOPAEDIC: HIP PRIMARY CARE PHYSICIAN: Norma Davies APRN.[employer] WORKER REFERRING PROVIDER: No referring provider defined for this encounter. ASSESSMENT AND PLAN There is a 75-year-old male who presents to the office today for severe left hip pain. Of note he has had his right knee replaced by Dr. Smiley and he has been established with Selwyn Leiva PA-C. He was recently seen in in January for severe left knee pain and received cortisone injection at that time. Patient is currently experiencing severe left hip pain and he is unable to sleep or walk due to this. He was sitting at a reunion dinner when he felt a bubble in his back that felt like it popped and he started having pain shortly after. Patient reports pain in the left lower back, buttocks, and occasional radiation to he lateral calf. He states this feels like a spasm sensation. Patient is a former smoker. Denies history of blood clots or use of blood thinners. He is currently on Plaquenil. He does have a history of prostate cancer. PAIN EVALUATION 04/21/2025 0419 04/21/2025 1004 Pain Level: 9 3 Pain Location: Hip-Left -- Description: Pulsating;Sharp;Sore;Stabb ing;Tenderness;Throbbing Aching;Cramping;Radiating Duration Amount of Time: 24 -- Duration Units: Hours -- Frequency: Continuous -- Comments: Tylenol does not help this terrible pain , I?m up all night in pain , I need relief , need cortisone injection EDD , pain is unbearable , left hip area , -- Impression: Left Low Back Pain and Radicular Pain Diagnoses: (M16.12) Primary osteoarthritis of left hip (primary encounter diagnosis) (M51.27) Lumbago-sciatica due to displacement of lumbar intervertebral disc After discussion with Sylvie Chiu, continued non-operative management of physical therapy, NSAIDS, and prednisone and spine consult was chosen. The patient currently has had progressive symptoms. Progressive symptoms include: Pain impacting sleep or causing fatigue Pain effecting living situation. The patient has been ordered: Office Visit on 04/21/25 [facility] CONSULT TO PHYSICAL THERAPY predniSONE (DELTASONE) 20 mg tablet Physical therapy CONSULTS: Spine medicine for lumbar radiculopathy and sciatica. Total Joint Athroplasty - Risk Calculator Risk Factors for Total Knee Arthroplasty (TKA) Major Risk Factors Obesity High Risk High: BMI > 40 Moderate: BMI 30-40 Normal: BMI < 30 Diabetes normal High: A1C > 8 Moderate: A1C 7-8 Normal: A1C < 7 Hx of DVT / PE normal High: dx of DVT / PE Normal: no dx of DVT / PE Smoking normal High: Current smoker Normal: Non smoker Narcotics Use normal High:NarxCare >=300 Moderate: 100-299 Normal: 0-99 Depression Moderate Risk High: PHQ-9 >14 Moderate: PHQ-9 5-14 Normal: PHQ-9 < 5 Area Deprivation Index (NAS) Unknown Risk High: NAS Score > 75 Moderate: NAS 50-75 Normal: NAS < 50 Obesity: Weight management and obesity medicine (bariatric) program recommended BMI Readings from Last 3 Encounters: 03/02/25 : 41.70 kg/m? 01/19/25 : 42.72 kg/m? 12/23/24 : 42.46 kg/m? Area Deprivation Index (NAS) 05/08/2022 01/30/2023 NAS Score National Score 32 28 Patient Health Questionnaire (PHQ-9) 08/15/2024 03/01/2025 04/21/2025 PHQ-9 PHQ-2 Score 4 2 2 2 PHQ-9 Score 14 Multiple values from one day are sorted in reverse-chronological order (0-4) minimal depression, (5-9) mild depression, (10-14) moderate depression, (15-19) moderately severe depression, (20-27) severe depression Bone Density Risk Screen Sylvie Chiu is at risk for bone loss and has not had a bone densitometry scan in the last 2 years (date of last scan: None on file). Recommend a bone densitometry scan and if indicated on the bone density results, a consult to a bone health specialist (Rheumatology, Endocrinology, or Women's Health) for bone assessment. Risk Factors: Use of Furosemide Use of Proton Pump Inhibitors Prednisone or use of systemic steroids Use of Anti-Convulsants Additional Risk Factors Obstructive Sleep Apnea (APRIL) Past Orthopaedic Surgery: Sylvie had knee surgery on 06/30/2018 with Kenn Gabriel. Sylvie had wrist surgery on 04/15/2024 with Lee Wayne. Malnutrition: No Malnutrition Screening Tool (MST) score on file- please complete the MST screening tool (click here to open) and refresh the note. ACTIVE PROBLEM LIST Obstructive Sleep Apnea (Adult) (Pediatric) Degenerative Arthritis of Knee Carpal Tunnel Syndrome of Right Wrist Essential Hypertension April Treated With Bipap Gastroesophageal Reflux Disease Without Esophagit (more content not included)... Normal [facility] XR HIP 3V PELV+ AP/LAT LTon 04-21-2025 XR HIP 3V PELV+ AP/LAT LT * * *Final Report* * * DATE OF EXAM: Apr 21 2025 9:30AM MANUEL [id number] - XR HIP 3V PELV+ AP/LAT LT / PROCEDURE REASON: M25.552-Left hip pain * * * * Physician Interpretation * * * * PROCEDURE: Pelvis and left hip, mechanical axis INDICATION: Left hip pain .chronic posterior left hip pain TECHNIQUE: XR HIP 3V PELV+ AP/LAT LT, XR LEG FRONTL HIP-ANKL [facility] AXIS COMPARISON: 07/20/2023 FINDINGS: Moderate bilateral hip osteoarthrosis, not significantly changed. Femoral heads are smooth. Stable suspected bone island in the right femoral head. Sacroiliac joints and symphysis pubis are maintained. Degenerative change in the lower lumbar spine. There is mild varus angulation at the left knee. Right total hip arthroplasty is noted. IMPRESSION: Osteoarthrosis. No acute abnormality. Resistance Brazer: [facility] Transcribe Date/Time: Apr 23 2025 4:14P Dictated by : ISAEL MAGAÑA MD This examination was interpreted and the report reviewed and electronically signed by: ISAEL MAGAÑA MD on Apr 23 2025 4:16PM EST [id number] [facility] XR LEG FRONTL HIP-[facility]L [facility] AXISon 04-21-2025 XR LEG FRONTL HIP-ANKL [facility] AXIS * * *Final Report* * * DATE OF EXAM: Apr 21 2025 9:30AM MANUEL [id number] - XR LEG FRONTL HIP-ANKL [facility] AXIS / PROCEDURE REASON: M25.552-Left hip pain * * * * Physician Interpretation * * * * PROCEDURE: Pelvis and left hip, mechanical axis INDICATION: Left hip pain .chronic posterior left hip pain TECHNIQUE: XR HIP 3V PELV+ AP/LAT LT, XR LEG FRONTL HIP-ANKL [facility] AXIS COMPARISON: 07/20/2023 FINDINGS: Moderate bilateral hip osteoarthrosis, not significantly changed. Femoral heads are smooth. Stable suspected bone island in the right femoral head. Sacroiliac joints and symphysis pubis are maintained. Degenerative change in the lower lumbar spine. There is mild varus angulation at the left knee. Right total hip arthroplasty is noted. IMPRESSION: Osteoarthrosis. No acute abnormality. [facility] Transcribe Date/Time: Apr 23 2025 4:14P Dictated by : ISAEL MAGAÑA MD This examination was interpreted and the report reviewed and electronically signed by: ISAEL MAGAÑA MD on Apr 23 2025 4:16PM EST [id number] Normal [facility] Comprehensive Metabolic Prof ilon 03-10-2025 AST [Catalytic activity/Vol] 34 U/L Normal <=37 [facility] Comment on above: Performed By: #### L 500.4050, L100.0100, L500.4100 #### [facility] [address] [place], [place] [address]all [facility] [place], [address] Absolute lymphocyte countOrd ered By: Norma Davies on 03-09-2025 Lymphocytes Auto (Unsp spec) [#/Vol] 1.32 10*3/uL 0.83-4.51 [facility] Absolute neutrophil countOrd ered By: Norma Davies on 03-09-2025 Neutrophils (Bld) [#/Vol] 4.9 10*3/uL 2.0-7.7 [facility] Anion gap in Serum or Plasma Ordered By: Norma Daveis on 03-09-2025 Anion gap [Moles/Vol] 11 mmol/L 5-15 [facility] Automated lymphocyte count a s percentage of total leukocytesOrdered By: Norma Samson on 03-09-2025 Lymphocytes/100 WBC Auto (Unsp spec) 19.4 % 19-41 [facility] BUN/creatinine ratioOrdered By: Norma Davies on 03-09-2025 Urea nitrogen/Creatinine [Mass ratio] 24.4 mg/mg High 10-20 [facility] Basophil percentageOrdered B y: Norma Samson on 03-09-2025 Basophils/100 WBC (Bld) 0.9 % 0-1 [facility] Bilirubin, totalOrdered By: Norma Davies on 03-09-2025 Bilirubin [Mass/Vol] 0.59 mg/dL 0.00-1.30 [facility] CBC W/Diff, Automatedon 02-26 Absolute Lymph 1.32 X10 3/uL Normal 0.83-4.51 [facility] Comment on above: Performed By: #### L 500.4050, L100.0100, L500.4100 #### [facility] [address] [place], [address] Absolute Neut 4.9 X10 3/uL Normal 2.0-7.7 [facility] Comment on above: Performed By: #### L 500.4050, L100.0100, L500.4100 #### [facility] [address] [place], [address] Basophils/100 WBC (Bld) 0.9 % Normal 0-1 [facility] Comment on above: Performed By: #### L 500.4050, L100.0100, L500.4100 #### [facility] [address] [place], [address] Eosinophils/100 WBC (Bld) 1.8 % Normal 0-5 [facility] Comment on above: Performed By: #### L 500.4050, L100.0100, L500.4100 #### [facility] [address] [place], [address] Erythrocyte distribution width (RBC) [Ratio] 14.2 % Normal 11.6-14.6 [facility] Comment on above: Performed By: #### L 500.4050, L100.0100, L500.4100 #### [facility] [address] [place], [address] Hematocrit (Bld) [Volume fraction] 42.3 % Normal 40-54 [facility] Comment on above: Performed By: #### L 500.4050, L100.0100, L500.4100 #### [facility] [address] [place], [address] Hemoglobin (Bld) [Mass/Vol] 13.7 g/dL Normal 13.0-16.5 [facility] Comment on above: Performed By: #### L 500.4050, L100.0100, L500.4100 #### [facility] [address] [place], [address] IG% 0.600 Normal 0.0-0.9 [facility] Comment on above: Result Comment: IG% - Immature Granulocytes (promyelocytes, myelocytes and metamyelocytes) > 1% indicates that a LEFT SHIFT is Present. Performed By: #### L 500.4050, L100.0100, L500.4100 #### [facility] [address] [place], [address] Lymphocytes/100 WBC (Bld) 19.4 % Normal 19-41 [facility] Comment on above: Performed By: #### L 500.4050, L100.0100, L500.4100 #### [facility] [address] [place], [address] MCH (RBC) [Entitic mass] 30.6 pg Normal 27.0-32.0 [facility] Comment on above: Performed By: #### L 500.4050, L100.0100, L500.4100 #### [facility] [address] [place], [address] MCHC (RBC) [Mass/Vol] 32.4 g/dL Normal 32-36 [facility] Comment on above: Performed By: #### L 500.4050, L100.0100, L500.4100 #### [facility] [address] [place], [address] MCV (RBC) [Entitic vol] 94.4 fL High 80-94 [facility] Comment on above: Performed By: #### L 500.4050, L100.0100, L500.4100 #### [facility] [address] [place], [address] Monocytes/100 WBC (Bld) 5.3 % Normal 0-10 [facility] Comment on above: Performed By: #### L 500.4050, L100.0100, L500.4100 #### [facility] [address] [place], [address] Neutrophils/100 WBC (Bld) 72.0 % High 47-70 [facility] Comment on above: Performed By: #### L 500.4050, L100.0100, L500.4100 #### [facility] [address] [place], [address] Nucleated RBC (Bld) [#/Vol] 0 10*3/uL Normal 0-5 [facility] Comment on above: Performed By: #### L 500.4050, L100.0100, L500.4100 #### [facility] [address] [place], [address] Platelet mean volume (Bld) [Entitic vol] 11.2 fL Normal 6.2-12.0 [facility] Comment on above: Performed By: #### L 500.4050, L100.0100, L500.4100 #### [facility] [address] [place], [address] Platelets (Bld) [#/Vol] 164 10*3/uL Normal 150-450 [facility] Comment on above: Performed By: #### L 500.4050, L100.0100, L500.4100 #### [facility] [address] [place], [address] RBC (Bld) [#/Vol] 4.48 10*6/uL Low 4.6-6.2 [facility] Comment on above: Performed By: #### L 500.4050, L100.0100, L500.4100 #### [facility] [address] [place], [address] RDW SD 49.2 fl High 35.1-43.9 [facility] Comment on above: Performed By: #### L 500.4050, L100.0100, L500.4100 #### [facility] [address] [place], [address] WBC (Bld) [#/Vol] 6.8 10*3/uL Normal 4.4-11.0 [facility] Comment on above: Performed By: #### L 500.4050, L100.0100, L500.4100 #### [facility] [address] [place], [address] Calculated very low density lipoprotein (VLDL) cholesterol measurementOrdered By: Norma Davies on 03-09-2025 Calculated very low density lipoprotein (VLDL) cholesterol measurement 17 mg/dL 5-40 [facility] Carbon dioxide, total [Moles /volume] in Central venous bloodOrdered By: Norma Davies on 03-09-2025 CO2 [Moles/Vol] 23.1 mmol/L 21.0-32.0 [facility] Chloride assayOrdered By: Do ra Davies on 03-09-2025 Chloride [Moles/Vol] 108 mmol/L 98-108 [facility] Eosinophil percentageOrdered By: Norma Davies on 03-09-2025 Eosinophils/100 WBC (Bld) 1.8 % 0-5 [facility] Erythrocyte distribution wid th ratioOrdered By: Norma Davies on 03-09-2025 Erythrocyte distribution width (RBC) [Ratio] 14.2 % 11.6-14.6 [facility] Erythrocyte distribution wid th standard deviationOrdered By: Norma Davies on 03-09-2025 Erythrocyte distribution width (RBC) [Ratio] 49.2 fl High 35.1-43.9 [facility] Glomerular filtration rate ( GFR) estimation/1.73 sq m using serum, plasma, or whole bOrdered By: Norma Davies on 03-09-2025 GFR/1.73 sq M.predicted among non-blacks MDRD (S/P/Bld) [Vol rate/Area] 83 mL/min/{1.73_m2} >60 [facility] Comment on above: mL/min/1.73m2 CKD-EP I Creatinine Equation (2020) Hematocrit Auto (Bld) [Volum e fraction]Ordered By: Norma Davies on 03-09-2025 Hematocrit (Bld) [Volume fraction] 42.3 % 40-54 [facility] Hemoglobin measurementOrdere d By: Norma Davies on 03-09-2025 Hemoglobin (Bld) [Mass/Vol] 13.7 g/dL 13.0-16.5 [facility] Immature granulocytes/100 WB C Auto (Bld)Ordered By: Norma Davies on 03-09-2025 Immature granulocytes/100 WBC (Bld) 0.600 % 0.0-0.9 [facility] Comment on above: IG% - Immature Granu locytes (promyelocytes, myelocytes and metamyelocytes) > 1% indicates that a LEFT SHIFT is Present. LDL calc ser/plasOrdered By: Norma Davies on 03-09-2025 Cholesterol in LDL [Mass/Vol] 97 mg/dL [facility] Comment on above: Mekueuhkfj=244-134 m g/dL & Higher Knnm=126 mg/dL or greater Laboratory - Chemistry and C hemistry - challengeOrdered By: Norma Davies on 03-09-2025 AST [Catalytic activity/Vol] 34 U/L <38 [facility] Lipid Profileon 03-09-2025 CHOL:HDL 3.37 Normal [facility] Comment on above: Performed By: #### L 500.4050, L100.0100, L500.4100 #### [facility] [address] [place], [address] Cholesterol [Mass/Vol] 162 mg/dL Normal <=200 [facility] Comment on above: Result Comment: Chol esterol level, Desirable <200 mg/dL Borderline high cholesterol 200-239 mg/dL High cholesterol >=240 mg/dL Recommendations of the NCEP Adult Treatment Panel for the following risk-cutoff thresholds for the [place] Citizen [place] population. Performed By: #### L 500.4050, L100.0100, L500.4100 #### [facility] [address] [place], [address] Cholesterol in HDL [Mass/Vol] 48 mg/dL Normal [facility] Comment on above: Result Comment: Adali onal Cholesterol Education Program (NCEP) guidelines: <40 mg/dL: Low HDL-cholesterol (major risk factor for CHD) >= 60 mg/dL: High HDL-cholesterol (negative risk factor for CHD) HDL-cholesterol is affected by a number of factors, e.g. smoking, exercise, hormones, sex and age. Performed By: #### L 500.4050, L100.0100, L500.4100 #### [facility] [address] [place], [address] Cholesterol in LDL [Mass/Vol] 97 mg/dL Normal [facility] Comment on above: Result Comment: Bord olstyw=855-007 mg/dL Higher Ehje=897 mg/dL or greater Performed By: #### L 500.4050, L100.0100, L500.4100 #### [facility] [address] [place], [address] Cholesterol in VLDL [Mass/Vol] 17 mg/dL Normal 5-40 [facility] Comment on above: Performed By: #### L 500.4050, L100.0100, L500.4100 #### [facility] [address] [facility] [place], [address] Triglyceride [Mass/Vol] 86 mg/dL Normal [facility] Comment on above: Result Comment: The drugs N-Acetylcysteine and Metamizole may falsely depress this assay. Normal range: <150 mg/dL Borderline High: 150-199 mg/dL High: 200-499 mg/dL Very High: >500 mg/dL Performed By: #### L 500.4050, L100.0100, L500.4100 #### [facility] [address] [facility] [place], [address] MCV (mean corpuscular volume ) determinationOrdered By: Norma Davies on 03-09-2025 MCV (RBC) [Entitic vol] 94.4 fL High 80-94 [facility] Mean corpuscular hemoglobin (MCH) determinationOrdered By: Norma Davies on 03-09-2025 MCH (RBC) [Entitic mass] 30.6 pg 27.0-32.0 [facility] Mean corpuscular hemoglobin concentration (MCHC) determinationOrdered By: Norma Davies on 03-09-2025 MCHC (RBC) [Mass/Vol] 32.4 g/dL 32-36 [facility] Mean platelet volume determi nationOrdered By: Norma Davies on 03-09-2025 Platelet mean volume (Bld) [Entitic vol] 11.2 fL 6.2-12.0 [facility] Monocyte percentageOrdered B y: Norma Davies on 03-09-2025 Monocytes/100 WBC (Bld) 5.3 % 0-10 [facility] Neutrophil percentageOrdered By: Norma Davies on 03-09-2025 Neutrophils/100 WBC (Bld) 72.0 % High 47-70 [facility] Nucleated red blood cell per centageOrdered By: Norma Davies on 03-09-2025 Nucleated RBC/100 WBC (Bld) [Ratio] 0 % 0-5 [facility] Platelet countOrdered By: Do ra Davies on 03-09-2025 Platelets (Bld) [#/Vol] 164 10*3/uL 150-450 [facility] Potassium measurement (mass/ volume)Ordered By: Norma Davies on 03-09-2025 Potassium (Unsp spec) [Mass/Vol] 4.3 mmol/L 3.3-5.1 [facility] RBC Auto (Bld) [#/Vol]Ordere d By: Norma Davies on 03-09-2025 RBC (Bld) [#/Vol] 4.48 10*6/uL Low 4.6-6.2 [facility] Screening total cholesterol/ high density lipoprotein (HDL) cholesterol ratioOrdered By: Norma Davies on 03-09-2025 Cholesterol.total/Chol esterol in HDL [Mass ratio] 3.37 {ratio} [facility] Serum creatinine measurement (mass/volume)Ordered By: Norma Davies on 03-09-2025 Creatinine [Mass/Vol] 0.97 mg/dL 0.70-1.20 [facility] Serum globulin measurementOr dered By: Norma Davies on 03-09-2025 Globulin (S) [Mass/Vol] 2.7 g/dL 2.2-4.2 [facility] Serum glucose measurement (m ass/volume)Ordered By: Norma Davies on 03-09-2025 Glucose [Mass/Vol] 90 mg/dL 70-99 [facility] Serum or plasma alanine crain otransferase (ALT) measurementOrdered By: Norma Davies on 03-09-2025 ALT [Catalytic activity/Vol] 56 U/L High <47 [facility] Serum or plasma albumin faustino urement (mass/volume)Ordered By: Norma Davies on 03-09-2025 Albumin [Mass/Vol] 4.6 g/dL 3.4-4.8 [facility] Serum or plasma albumin/glob ulin mass ratioOrdered By: Norma Davies on 03-09-2025 Albumin/Globulin [Mass ratio] 1.7 {ratio} 0.9-2.4 [facility] Serum or plasma alkaline jaylan sphatase measurementOrdered By: Norma Davies on 03-09-2025 ALP [Catalytic activity/Vol] 108 U/L 40-129 [facility] Serum or plasma calcium faustino urement (mass/volume)Ordered By: Norma Davies on 03-09-2025 Calcium [Mass/Vol] 9.6 mg/dL 7.6-11.0 [facility] Serum or plasma cholesterol in HDL measurement (mass/volume)Ordered By: Norma Davies on 03-09-2025 Cholesterol in HDL [Mass/Vol] 48 mg/dL >40 [facility] Comment on above: National Cholesterol Education Program (NCEP) guidelines:<40 mg/dL: Low HDL-cholesterol (major risk factor for CHD)>= 60 mg/dL: High HDL-cholesterol (negative risk factor for CHD)HDL-cholesterol is affected by a number of factors, e.g. smoking, exercise, hormones, sex and age. Serum or plasma cholesterol measurement (mass/volume)Ordered By: Norma Davies on 03-09-2025 Cholesterol [Mass/Vol] 162 mg/dL <201 [facility] Comment on above: Cholesterol level, D esirable <200 mg/dLBorderline high cholesterol 200-239 mg/dLHigh cholesterol >=240 mg/dLRecommendations of the NCEP Adult Treatment Panel for the following risk-cutoff thresholds for the [place] Citizen [place] population. Serum or plasma urea nitroge n measurement (mass/volume)Ordered By: Norma Davies on 03-09-2025 Urea nitrogen [Mass/Vol] 24 mg/dL High 4-19 [facility] Sodium levelOrdered By: Norma Davies on 03-09-2025 Sodium [Moles/Vol] 143 mmol/L 133-145 [facility] Total proteinOrdered By: Corey Davies on 03-09-2025 Protein [Mass/Vol] 7.3 g/dL 5.9-8.4 [facility] Triglycerides measurementOrd ered By: Norma Davies on 03-09-2025 Triglyceride [Mass/Vol] 86 mg/dL <199 [facility] Comment on above: The drugs N-Acetylcy steine and Metamizole may falsely depress this assay. 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 hot humid weather lisinopril-hydrochlorothia zide (PRINZIDE,ZESTORETIC) 20-12.5 mg per tablet Take 1 tablet by mouth once daily. modafinil(PROVIGIL 200 MG TAB) Take one(1) tablet daily in the morning. 90 1 pantoprazole (PROTONIX) 40 mg ORAL TbEC Take one(1) tablet daily. 0 BIPAP Please supply patient with Full face mask, Santana [place] VIP [phone]. 1 0 gabapentin (NEURONTIN) 100 [...] distress RESP:Unlabor (more content not included)... Normal [facility] Large Joint Arthro/Inj: L kn ee [...] these instructions. Informed Consent Consent Obtained: Verbal [place] Protocol A moment to CARE was completed. [...] assessment and interventions applicable. No implant(s) inserted. [facility] XR KNEE 4V AP/PA BOTH+LAT/ME R LTon 03-03-2025 XR KNEE 4V AP/PA BOTH+LAT/BHUMI LT * * *Final Report* * * DATE OF EXAM: Mar 03 2025 8:09AM MDElmer 5202 - XR KNEE 4V AP/PA BOTH+LAT/BHUMI LT / PROCEDURE REASON: M25.562-Left knee pain, unspecified chronicity * * * * Physician Interpretation * * * * PROCEDURE: Left knee INDICATION: Left knee pain, unspecified chronicity .left knee pain TECHNIQUE: XR KNEE 4V AP/PA BOTH+LAT/BHUMI LT COMPARISON: 12/24/2021 FINDINGS: Significant medial and patellofemoral joint compartment narrowing, showing mild interval progression. There is [id number] in the lateral patellofemoral joint compartment. Small joint bodies, new compared to previous. No fracture or joint effusion. IMPRESSION: Progressive, advanced osteoarthritis with small joint bodies Resistance Brazer: SAMANTHA Transcribe Date/Time: Mar 05 2025 11:18A Dictated by : ISAEL MAGAÑA MD This examination was interpreted and the report reviewed and electronically signed by: ISAEL MAGAÑA MD on Mar 05 2025 11:20AM EST [id number] [facility] Office Visit (ORTHBR ) -- SYLVIE CHIU ([id number]) 1950 M [facility] Date Time Provider Department 03/02/25 8:20 AM NATAN ALCAZAR During your visit today, we recorded the following information about you: Weight Height 135.6 kg 1.803 m Natan Alcazar DO 03/02/2025 8:49 AM Signed CHIEF COMPLAINT: Patient presents with: Left Wrist - Established Patient, Pain PAIN EVALUATION 03/01/2025 1037 03/02/2025 0753 Pain Level: 6 2 Pain Location: Wrist-Left Wrist-Left Description: Aching;Cramping;Sore;Stabb ing;Stiffness;Tenderness;T hrobbing Aching Duration Amount of Time: -- 5 [...] these instructions. Informed Consent Consent Obtained: Verbal [place] Protocol A moment to CARE was completed. [...] injection, lupe (more content not included)... Normal [facility] Small Joint Arthro/Inj: L th umb CMCon 03-02-2025 Natan Alcazar DO 03/02/2025 8:49 AM Small Joint Arthro/Inj: [...] these instructions. Informed Consent Consent Obtained: Verbal [place] Protocol A moment to CARE was completed. [...] been communicated to the patient or surrogate. [facility] US WRIST-INJECTION LT (POC) SALONI USE ONLYon 03-02-2025 [facility] HEALTHon 01-19-2025 [facility] HNO ID: [id number] Author: LINDSEY FISHER RT(Eyal) Service: Radiology Author Type: Technologist Type: Allied [...] PATIENT PRESENTS WITH AN IMPLANTABLE OR ATTACHED GREY STOCK RECORDER: No RADIOLOGY DEPARTMENT: General X-ray: Exam(s) Completed: Lower Extremity X-Ray(s): Ankle, Right and Foot, Right PERIPHERAL IV DATA: Not applicable SIGNED BY: RT Brooks(Eyal) January 19, 2025 6:44 PM [facility] ED NOTEon 04-24-2025 ED NOTE HNO ID: [id number] Author: HAYDE QUEEN, RN Service: ? Author Type: Registered Nurse [...] to come back to the emergency department. [facility] ED PROV NOTEon 01-19-2025 ED PROV NOTE HNO ID: [id number] Author: MABEL ALVARENGA PA-C Service: Emergency Medicine Author Type: Physician [employer] Room Service Supervisor Type: ED Provider Notes Filed: 01/21/2025 00:41 [...] History provided by: Medical records and patient easter bunny used: No PAST MEDICAL HISTORY Diagnosis Date [...] Behavior normal. Be (more content not included)... [facility] XR ANKLE 3V AP/LAT/OBL RTon 01-19-2025 XR [...] right ankle. Circumferential ankle soft tissue swelling. Resistance Brazer: PSCB Transcribe Date/Time: Jan 19 2025 7:47P Dictated by : TIAN HELTON MD This examination was interpreted and the report reviewed and electronically signed by: TIAN HELTON MD on Jan 19 2025 7:49PM EST [id number] [facility] XR FOOT 3V AP/LAT/OBL RTon 0 01-19-2025 [...] right ankle. Circumferential ankle soft tissue swelling. Resistance Brazer: PSCB Transcribe Date/Time: Jan 19 2025 7:47P Dictated by : TIAN HELTON MD This examination was interpreted and the report reviewed and electronically signed by: TIAN HELTON MD on Jan 19 2025 7:49PM EST [id number] [facility] 12-23-2024 [facility] Office Visit (RADRST ) -- MILENASYLVIE CAMPBELL ([id number]) 1950 [facility] Date Time Provider Department 12/23/24 9:00 AM HUSSEIN ORDONEZ During your visit today, we recorded the following information about you: Weight 142 kg Hussein Ordonez MD 12/23/2024 4:11 PM Signed Radiation Oncology - Follow Up Note PATIENT NAME: Sylvie Chiu PATIENT DIAGNOSIS: 74 year old man with high-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 Colonoscopy on 01/27/24 ([facility]) showed non-bleeding diverticula in the sigmoid [...] as instructed as needed. hot humid weather lisinopril-hydrochlorothia zide (PRINZIDE,ZESTORETIC) 20-12.5 mg per tablet Take 1 tablet by mouth once daily. modafinil(PROVIGIL 200 MG TAB) Take one(1) tablet daily in the morning. pantoprazole (PROTONIX) 40 mg ORAL TbEC Take one(1) tablet daily. BIPAP Please supply patient with Full face mask, [place] VIP [phone]. REVIEW OF SYSTEMS: He notes energy is [...] 42.46 kg (more content not included)... [facility]20[facility] ARAMSYLVIE ([id number]) 1950 M [facility] Date Time Provider Department 12/19/24 [...] instructed as needed. hot humid weather - lisinopril-hydrochlorothia zide (PRINZIDE,ZESTORETIC) 20-12.5 mg per tablet Take 1 tablet by mouth once daily. - modafinil(PROVIGIL 200 MG TAB) Take one(1) tablet daily in the morning. - pantoprazole (PROTONIX) 40 mg ORAL TbEC Take one(1) tablet daily. - BIPAP Please supply patient with Full face mask, Santana [place] VIP [phone]. Problem List As Of Date 12/19/2024 Noted [...] Status:Closed by ROHINI SAAB on 12/19/24 Normal [facility] PSA SerPl-ncon 12-19-2024 Prostate specific Ag [Mass/Vol] 0.04 ng/mL Normal <2.60 [facility] Comment on above: Order Comment: Speci men Type: BLOOD SPECIMEN Ordering Facility: [facility] Address: [address] [place] [address] Result Comment: Tota l PSA test methodology used is the Electrochemiluminescence Immunoassay by [employer]. Total PSA values by differing methodologies cannot be interchanged. Performed By: #### 2 [id number] #### [facility] CLIA [id number] [address] [place], [place] [address] [address] [place] CNOVon 08-16-2024 CNOV Office Visit (ORTHBR ) -- SYLVIE CHIU ([id number]) 1950 M [facility] Date Time Provider Department 08/16/24 4:00 PM NATAN ALCAZAR During your visit today, we recorded the following information about you: Natan Alcazar DO 08/16/2024 4:25 PM Signed CHIEF COMPLAINT: Patient presents with: Right Thumb - Established Patient, Pain, Injections PAIN EVALUATION 08/15/2024 2248 08/16/2024 1601 Pain Level: 5 6 Pain Location: Hand-Right Finger Description: Aching;Burning;Cramping;Nu mbness;Pulsating;Radiating ;Sharp;Shooting;Sore; Stabbing;Throbbing;Tightne ss;Tingling Aching;Sharp Duration Amount of Time: -- 5 [...] results and radiologist's interpretation, available in the [facility] health record. Images were reviewed with the [...] thumb CMC Informed Consent Consent Obtained: Verbal [place] Protocol A moment to CARE was completed. [...] to ot (more content not included)... Normal [facility] Small Joint Arthro/Inj: R th umb CMCon 08-16-2024 Natan Alcazar DO 08/16/2024 4:25 PM Small Joint Arthro/Inj: R thumb CMC Informed Consent Consent Obtained: Verbal [place] Protocol A moment to CARE was completed. [...] Plan of Care Visit completed when applicable [facility] US WRIST-INJECTION RT (POC) SALONI USE ONLYon 08-16-2024 [facility] CNOVon 08-02-2024 CNOV Office Visit (ORTHBR ) -- SYLVIE CHIU ([id number]) 1950 M [facility] Date Time Provider Department 08/02/24 9:30 AM NATAN ALCAZAR ORTHERICA During your visit today, we recorded the following information about you: Weight Height 142.9 kg 1.829 m Natan Alcaazr DO 08/02/2024 10:01 AM Signed CHIEF COMPLAINT: [...] thumb CMC Informed Consent Consent Obtained: Verbal [place] Protocol A moment to CARE was completed. [...] - Fully Assessed Reason for Visit: New [083685] Pain [78] Injections [199] New [755838] Pain [78] Primary Visit Diagnosis:Arthritis of carpometacarpal (CMC) joint of left thumb [M18.12] Other Visit Diagnosis:Right hand pain [M79.641] Order(s):US WRIST-INJECTION LT (POC) SALONI USE ONLY [8217403] Order #: [id number]: 1 XR HAND GENERAL 3V PA/LAT/OBL RIGHT [[id number]] Order #: [id number] FUTURE Small Joint Arthro/Inj: L thumb CMC [MFT320] Order #: [id number] [] ROPivacaine (PF) 5 mg/mL (0.5 %) 0.5 mL injection (NAROPIN)Disp: Rfl: [] triamcinolone acetonide 40 mg injection (KeNALog 40)Disp: Rfl: Prescriptions as of 08/02/2024 - gabapentin (NEURONTIN) 100 mg capsule Take 1 capsule by mouth three t (more content not included)... Normal [facility] Small Joint Arthro/Inj: L th umb CMCon 08-02-2024 AlcazarNatan youDO 08/02/2024 10:01 AM Small Joint Arthro/Inj: L thumb CMC Informed Consent Consent Obtained: Verbal [place] Protocol A moment to CARE was completed. [...] Plan of Care Visit completed when applicable [facility] US WRIST-INJECTION LT (POC) SALONI USE ONLYon 08-02-2024 [facility] XR HAND 3V PA/LAT/OBL RTon 1 [...] fracture. IMPRESSION: Bone demineralization and advanced osteoarthritis Resistance Brazer: SAMANTHA Transcribe Date/Time: Aug 06 2024 10:39A Dictated by : ISAEL MAGAÑA MD This examination was interpreted and the report reviewed and electronically signed by: ISAEL MAGAÑA MD on Aug 06 2024 10:41AM EST [id number] Normal [facility] 07-07-2024 CNPN Telephone (ORMDNA) -- ARAMSYLVIE ([id number]) 1950 [facility] Date Time Provider Department 07/07/24 LEE WAYNE During your visit today, we recorded the following information about you: Maureen Kirby RN 07/07/2024 1:27 PM Signed Patients called checking [...] Fully Assessed Reason for Visit: Patient Question [0527] Prescriptions as of 07/07/2024 - gabapentin (NEURONTIN) [...] instructed as needed. hot humid weather - lisinopril-hydrochlorothia zide (PRINZIDE,ZESTORETIC) 20-12.5 mg per tablet Take 1 tablet by mouth once daily. - modafinil(PROVIGIL 200 MG TAB) Take one(1) tablet daily in the morning. - pantoprazole (PROTONIX) 40 mg ORAL TbEC Take one(1) tablet daily. - BIPAP Please supply patient with Full face mask, Santana [place] VIP [phone]. Problem List As Of Date 07/07/2024 Noted [...] Encounter Status:Closed by MAUREEN KIRBY on 07/07/24 [facility] 07-06-2024 [facility]ABD[facility] -- SYLVIE CHIU ([id number]) 1950 [facility] Date Time Provider Department 07/06/24 SEDA HATCH HEMJOSH During your visit today, we recorded the following information about you: Seda Hatch LISW 07/06/2024 8:41 AM Signed Patient Declined Social Work Assessment He states he did not fill this survey out C CLARITA Hatch Allergies As of Date: 07/06/2024 (No Known Allergies) Date Reviewed: 06/24/2024 Reviewed by: Ros Cheng, DYLAN - Fully Assessed Prescriptions as of 07/06/2024 [...] instructed as needed. hot humid weather - lisinopril-hydrochlorothia zide (PRINZIDE,ZESTORETIC) 20-12.5 mg per tablet Take 1 tablet by mouth once daily. - modafinil(PROVIGIL 200 MG TAB) Take one(1) tablet daily in the morning. - pantoprazole (PROTONIX) 40 mg ORAL TbEC Take one(1) tablet daily. - BIPAP Please supply patient with Full face mask, Santana [place] VIP [phone]. Problem List As Of Date [...] Encounter Status:Closed by SEDA HATCH on 07/06/24 [facility] CNOVon 07-05-2024 CNOV Office Visit (ORMDNA ) -- SYLVIE CHIU ([id number]) 1950 [facility] Date Time Provider Department 07/05/24 10:45 AM LEE WAYNE During your visit today, we recorded the following information about you: Lee Wayne MD 07/25/2024 3:23 PM Signed Lee Wayne MD Department of Orthopaedics Orthopaedics [address] [place] [address] Dept: [phone] July 05, 2024 CHIEF COMPLAINT: Post Op [...] and degenerative changes with possible scapholunate dissociation Resistance Brazer: SAMANTHA Transcribe Date/Time: Apr 01 2024 7:48A Dictated by : ISAEL MAGAÑA MD This examination was interpreted and the report reviewed and electronically signed by: ISAEL MAGAÑA MD on Apr 01 2024 7:49AM EST Results-Findings * * *Final Report* * * DATE OF EXAM: Mar 29 2024 10:03AM MANUEL 5270 - XR WRIST 3V PA/LAT/OBL LT / PROCEDURE REASON: [id number] * * * * Physician Interpretation * * * * PROCEDURE: Left wrist INDICATION: Pain .left wrist pain TECHNIQUE: XR WRIST 3V PA/LAT/OBL LT COMPARISON: None FINDINGS: Advanced osteopenia/osteoporosis. 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 Borderline widening of the scapholunate interval. No acute fracture. Mr. Sylvie Chiu was advised as to contrast therapies and/or to take analgesics/anti-inflammato junior as needed and all contraindications were reviewed. [...] as instructed as needed. hot humid weather lisinopril-hydrochlorothia zide (PRINZIDE,ZESTORETIC) 20-12.5 mg per tablet Take 1 tablet by mouth once daily. modafinil(PROVIGIL 200 MG TAB) Take one(1) tablet daily in the morning. pantoprazole (PROTONIX) 40 mg ORAL TbEC Take one(1) tablet daily. BIPAP Please supply patient with Full face mask, [employer] VIP [id number]. No current facility-administered medications for [...] [M18.12] Order(s):PROCEDURE REQUEST - SALONI ULTRASOUND-GUIDED INJECTION [[id number]] Order #: [id number]: 1 FUTURE gabapentin (NEURONTIN) 100 mg capsuleTake 1 capsule by mouth three times a day for 10 days.Disp: 30 capsuleRfl: 0 Prescriptions as of 07/25/2024 - gabapentin (NEURONTIN) 100 mg capsule Take 1 capsule by mouth three times a day for 10 days. - tamsulosin (FLOMAX) 0.4 mg TAKE 2 CAPSULES BY MOUTH (more content not included)... Normal [facility] CNOVon 06-24-2024 CNOV Office Visit (RADRST ) -- SYLVIE CHIU ([id number]) 1950 [facility] Date Time Provider Department 06/24/24 11:00 AM HUSSEIN ORDONEZ During your visit today, we recorded the following information about you: Hussein Ordonez MD 06/24/2024 11:47 AM Signed Radiation Oncology - Follow Up Note PATIENT NAME: Sylvie Chiu PATIENT DIAGNOSIS: 74 year old man with high-intermediate risk prostate cancer, [id number], GG2, clinical Stage IIB, iPSA 5.5 [Samantha [...] stools. Colonoscopy on 01/27/24 ([facility]) showed non-bleeding diverticula in the sigmoid [...] as instructed as needed. hot humid weather lisinopril-hydrochlorothia zide (PRINZIDE,ZESTORETIC) 20-12.5 mg per tablet Take 1 tablet by mouth once daily. modafinil(PROVIGIL 200 MG TAB) Take one(1) tablet daily in the morning. pantoprazole (PROTONIX) 40 mg ORAL TbEC Take one(1) tablet daily. BIPAP Please supply patient with Full face mask, [employer] VIP [id number]. REVIEW OF SYSTEMS: He remains [...] ~5 cm (more content not included)... Normal [facility] PSA SerPl-ncon 06-06-2024 Prostate specific Ag [Mass/Vol] 0.03 ng/mL Normal <2.60 [facility] Comment on above: Order Comment: Speci men Type: BLOOD SPECIMEN Ordering Facility: [facility] Address: [address] [place] [address] Result Comment: Tota l PSA test methodology used is the Electrochemiluminescence Immunoassay by [employer]. Total PSA values by differing methodologies cannot be interchanged. Performed By: #### 2 [id number] #### [facility] CLIA [id number] [address] [place], [place] [address] [address] [place] CNOVon 05-24-2024 CNOV Office Visit (ORMDNA ) -- CUTLIP,SYLVIE R ([id number]) 1950 [facility] Date Time Provider Department 05/24/24 3:45 PM LEE WAYNE During your visit today, we recorded the following information about you: Lee Wayne MD 06/21/2024 9:16 AM Signed Lee Wayne MD Department of Orthopaedics Orthopaedics [address] [place] [address] Dept: [phone] May 24, 2024 CHIEF COMPLAINT: Established Patient [...] as instructed as needed. hot humid weather lisinopril-hydrochlorothia zide (PRINZIDE,ZESTORETIC) 20-12.5 mg per tablet Take 1 [...] Please supply patient with Full face mask, [employer] VIP 7600. No current facility-administered medications for this visit. Allergies: Patient has no known allergies. Lee Wayne MD Referring Provider: LEE WAYEN [[id number]] Allergies As of Date: 05/24/2024 (No Known [...] instructed as needed. hot humid weather - lisinopril-hydrochlorothia zide (PRINZIDE,ZESTORETIC) 20-12.5 mg per tablet Take 1 tablet by mouth once daily. - modafinil(PROVIGIL 200 MG TAB) Take (more content not included)... Normal [facility] CNOVon 04-26-2024 CNOV Office Visit (ORMDNA ) -- SYLVIE CHIU ([id number]) 1950 [facility] Date Time Provider Department 04/26/24 11:45 AM AFSANEH HAYES During your visit today, we recorded the following information about you: Afsaneh Hayes PA-C 04/26/2024 12:04 PM Signed Afsaneh Hayes PA-C Department of Orthopaedics Orthopaedics [address] [place] [address] Dept: [phone] April 26, 2024 CHIEF COMPLAINT: Post Op [...] as to contrast therapies and/or to take analgesics/anti-inflammato junior as needed and all contraindications were reviewed. [...] as instructed as needed. hot humid weather lisinopril-hydrochlorothia zide (PRINZIDE,ZESTORETIC) 20-12.5 mg per tablet Take 1 [...] allergies. This note was partially generated using [employer] voice recognition system, and there may be some incorrect words, spellings, and punctuation that were not noted in checking the note before saving. Afsaneh Hayes PA-C Referring Provider: LEE WAYNE [[id number]] Allergies As of Date: 04/26/2024 (No Known [...] ASV Adap (more content not included)... Normal [facility] XR Wrist - left PA and Later al and Obliqueon 04-01-2024 IMPRESSION: Bone demineralization and degenerative changes with possible scapholunate dissociation Resistance Brazer: SAMANTHA Transcribe Date/Time: Apr 01 2024 7:48A Dictated by : ISAEL MAGAÑA MD This examination was interpreted and the report reviewed and electronically signed by: ISAEL MAGAÑA MD on Apr 01 2024 7:49AM EST [facility] * * *Final Report* * * DATE OF EXAM: Mar 29 2024 10:03AM MANUEL 5270 - XR WRIST 3V PA/LAT/OBL LT / PROCEDURE REASON: [id number] * * * * Physician Interpretation * * * * PROCEDURE: Left wrist INDICATION: Pain .left wrist pain TECHNIQUE: XR WRIST 3V PA/LAT/OBL LT COMPARISON: None FINDINGS: Advanced osteopenia/osteoporosis. 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 Borderline widening of the scapholunate interval. No acute fracture. [facility] Provider, Jesus Riley - 04/01/2024 * * *Final Report* * * DATE OF EXAM: Mar 29 2024 10:03AM MDO 5270 - XR WRIST 3V PA/LAT/OBL LT / PROCEDURE REASON: [id number] * * * * Physician Interpretation * * * * PROCEDURE: Left wrist INDICATION: Pain .left wrist pain TECHNIQUE: XR WRIST 3V PA/LAT/OBL LT COMPARISON: None FINDINGS: Advanced osteopenia/osteoporosis. 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 Borderline widening of the scapholunate interval. No acute fracture. 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 Resistance Brazer: SAMANTHA Transcribe Date/Time: Apr 01 2024 7:48A Dictated by : ISAEL MAGAÑA MD This examination was interpreted and the report reviewed and electronically signed by: ISAEL MAGAÑA MD on Apr 01 2024 7:49AM EST [facility] XR Wrist - left PA and Later al and ObliqueOrdered By: Ccf Provider on 04-01-2024 [facility] XR Wrist - left PA and Later al and Obliqueon 03-29-2024 Radiology Study observation (narrative) [facility] CNOVon 02-19-2024 CNOV Office Visit (URFMOB ) -- MILENASYLVIE CAMPBELL ([id number]) 1950 [facility] Date Time Provider Department 02/19/24 [...] Education Session: None Instruction Provided To: Patient Machines Technician Present: not applicable Discipline: Nursing Learning Topic: SURVIVAL SKILLS: Complication Prevention Symptom Management Patient Evaluation: Verbalizes understanding: Yes Supplemental Material Given: Written Material Instructed By Ruth Quiñones MA In Department Urology . 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 C. Prostate, left apex, biopsy: - Prostatic adenocarcinoma, Samantha score 3+3=6, grade group 1, involving 1 of 1 core (1 mm, 25%). D. Prostate, left lateral base, biopsy: - Prostatic adenocarcinoma, Second Mesa score 3+4=7, grade group 2, involving 1 of 1 core (6 mm, 85%). - Samantha ibrahima (more content not included)... Normal [facility] UA DIP, URINE (POC)on 2023 BILIRUBIN UA (POCT) Negative Negative [facility] CL[facility]ITY [facility] (POCT[facility] COLOR UA (POCT) Yellow [facility] GLUCOSE UA (POCT) Negative Negative mg/dL [facility] Hemoglobin Ql (U) Negative Negative [facility] KETONE UA (POCT) Negative Negative mg/dL [facility] LEUKOCYTES UA (POCT) Negative Negative [facility] NITRITE UA (POCT) Negative Negative [facility] PH UA (POCT) 6.5 4.5 - 8.0 [facility] Protein Ql (U) Negative Negative mg/dL [facility] SPECIFIC GRAVITY UA (POCT) 1.020 1.005 - 1.030 [facility] UROBILINOGEN UA (POCT) 0.2 Carmella l E.U./dL [facility] Location:[facility], [id number] [place] [address], [address] [place] [address] [facility] No Panel Informationon 01-31 IMPRESSION: Scattered active synovitis in the hands and wrists. No tenosynovitis in the hands or wrists. Resistance Brazer: SAMANTHA Transcribe Date/Time: Feb 01 2024 9:55A Dictated by : TIERRA COKER MD This examination was interpreted and the report reviewed and electronically signed by: TIERRA COKER MD on Feb 01 2024 2:43PM [facility] Radiology Study observation (narrative) [facility] No Panel InformationOrdered By: Ccf Provider on 02-01-2024 [facility] US Upper extremity - lefton 02-01-2024 [...] joint. OTHER: None. DIVISION OF RADIOLOGY Provider, Jesus Riley - 02/01/2024 * * *Final Report* * [...] No tenosynovitis in the hands or wrists. Resistance Brazer: PSCHumberto Transcribe Date/Time: Feb 01 2024 9:55A Dictated by : TIERRA COKER MD This examination was interpreted and the report reviewed and electronically signed by: TIERRA COKER MD on Feb 01 2024 2:43PM [facility] US Upper extremity - righton 02-01-2024 [...] were saved to the permanent image archive. COMPARISON: X-ray: 02/05/2023 FINDINGS: RIGHT SIDE: RIGHT [...] joint. OTHER: None. DIVISION OF RADIOLOGY Provider, Jesus [facility] - 02/01/2024 * * *Final Report* * [...] No tenosynovitis in the hands or wrists. Resistance Brazer: PSCB Transcribe Date/Time: Feb 01 2024 9:55A Dictated by : TIERRA COKER MD This examination was interpreted and the report reviewed and electronically signed by: TIERRA COKER MD on Feb 01 2024 2:43PM [facility] CNOVon 01-29-2024 CNOV Office Visit (URFMOB ) -- SYLVIE CHIU ([id number]) 1950 [facility] Date Time Provider Department 01/29/24 3:40 PM SELWYN MICHELLE During your visit today, we recorded the following information about you: Pulse Blood pressure 71/minute 133/67 Milady Ordaz 01/29/2024 4:04 PM Signed [facility] FOLLOW-UP PATIENT HISTORY AND PHYSICAL EXAM PATIENT INFO: Sylvie Chiu 73 year old REFERRING M.DJj: Hussein Ordonez [id number] [facility] [id number] CHIEF COMPLAINT: Prostate cancer, LUTS HISTORY: Sylvie Chiu is a 73 year old man with high-intermediate risk prostate cancer, [id number], Stage IVB, GG2, clinical Stage IIB [Samantha [...] left lateral base, biopsy: - Prostatic adenocarcinoma, Second Mesa score 3+4=7, grade group 2, involving 1 of 1 core (6 mm, 85%). - Samantha pattern 4 comprises approximately 10% of the carcinoma. - Small gland cribriform morphology is identified. - Atypical intraductal proliferation (AIP) is present. E. Prostate, left lateral mid, biopsy: - Prostatic adenocarcinoma, Samantha score 3+3=6, grade group 1, involving 1 of 1 core (2 mm, 50%) F. Prostate, left lateral apex, biopsy: - Prostatic adenocarcinoma, Second Mesa score 3+3=6, grade group 1, involving 1 of 1 core (1 mm, 30%). G. Prostate, right base, biopsy: - Benign prostate tissue. H. Prostate, right mid, biopsy: - Prostatic adenocarcinoma, Second Mesa score 3+3=6, grade group 1, involving 2 of 2 cores (1 mm, 30%; 1 mm, 20%) I. Prostate, right apex, biopsy: - Prostatic adenocarcinoma, Second Mesa score 3+3=6, grade group 1, involving 1 of 1 core (3 mm, 50%). J. Prostate, right lateral base, biopsy: - Benign prostate tissue. K. Prostate, right lateral mid, biopsy: - Prostatic adenocarcinoma, Second Mesa score 3+3=6, grade group 1, involving 1 [...] 4: Present, small gland Intraductal carcinoma: Suspicious Gis Mapping Technician tumor block to use for additional studies: [...] hypertens (more content not included)... Normal [facility] UA DIP, URINE (POC)on 2023 BILIRUBIN UA (POCT) Negative Negative [facility] CLARITY UA (POCT) Clear [facility] COLOR UA (POCT) Yellow [facility] GLUCOSE UA (POCT) Negative Negative mg/dL [facility] Hemoglobin Ql (U) Negative Negative [facility] KETONE UA (POCT) Negative Negative mg/dL [facility] LEUKOCYTES UA (POCT) Negative Negative [facility] NITRITE UA (POCT) [facility] PH UA (POCT) 5.5 4.5 - 8.0 [facility] Protein Ql (U) Negative Negative mg/dL [facility] SPECIFIC GRAVITY UA (POCT) >=1.030 1.005 - 1.030 [facility] UROBILINOGEN UA (POCT) 0.2 Carmella l E.U./dL [facility] Location:[facility], [address] [place] [address], [address] [place] [address] [facility] MR Pelvis WO and W contrast Vikash 01-13-2024 IMPRESSION: 1. Grossly unremarkable appearance of the urinary bladder. No gross mass or stricture is noted. 2. No gross urethral stricture is noted. If clinically warranted, consider further evaluation with retrograde urethrogram. Resistance Brazer: SAMANTHA Transcribe Date/Time: Jan 13 2024 9:02A Dictated by : PHI HOLLIS MD This examination was interpreted and the report reviewed and electronically signed by: PHI HOLLIS MD on Jan 13 2024 9:25AM [facility] * * *Final Report* * * DATE OF EXAM: Jan 12 2024 10:22AM [facility] 0742 - MRI PELVIS WO/W IVCON / [...] osseous structures: Unremarkable. DIVISION OF RADIOLOGY Provider, [facility] - 01/13/2024 * * *Final Report* * * DATE OF EXAM: Jan 12 2024 10:22AM [facility] 0742 - MRI PELVIS WO/W IVCON / [...] warranted, consider further evaluation with retrograde urethrogram. Resistance Brazer: PSCB Transcribe Date/Time: Jan 13 2024 9:02A Dictated by : PHI HOLLIS MD This examination was interpreted and the report reviewed and electronically signed by: PHI HOLLIS MD on Jan 13 2024 9:25AM EST [facility] MR Pelvis WO and W contrast IVOrdered By: Ccf Provider on 01-13-2024 [facility] MR Pelvis WO and W contrast Vikash 01-12-2024 Radiology Study observation (narrative) [facility] URINALYSIS, DIPSTICK ONLYon 01-12-2024 Bilirubin Ql (U) Negative Negative [facility] Clarity (Unsp spec) Clear Clear [facility] Color (U) Yellow Yellow [facility] Glucose Test strip (U) [Mass/Vol] Negative Negative [facility] Hemoglobin Ql (U) Negative Negative [facility] Ketones Ql (U) Negative Negative [facility] Leukocyte esterase Test strip Ql (U) Negative Negative [facility] Nitrite Ql (U) Negative Negative [facility] pH (U) 5.5 [pH] <8.5 [facility] Protein (U) [Mass/Vol] Negative Negative Cl [facility] Specific gravity (U) [Rel density] 1.025 1.005 - 1.030 [facility] Urobilinogen Ql (U) 0.2 EU/dL 0.2-1.0 EU/dL [facility] ESR Westergren method (Bld) [Velocity]on 12-14-2023 ESR (Bld) [Velocity] 13 mm/h 0 - 15 mm/hr [facility] No Panel Informationon 07-20 [facility] XR Hip - left AP and Lateral on 04-12-2023 IMPRESSION: Bilatera l hip osteoarthrosis Resistance Brazer: PSCHumberto Transcribe Date/Time: Apr 12 2023 4:04P Dictated by : ISAEL MAGAÑA MD This examination was interpreted and the report reviewed and electronically signed by: ISAEL MAGAÑA MD on Apr 12 2023 4:05PM [facility] * * *Final Report* * * DATE OF EXAM: Apr 10 2023 9:06AM MANUEL Traore9 - XR HIP 2V AP/ LAT LT / PROCEDURE REASON: M25.552-Pain in left hip * * * * Physician Interpretation * * * * PROCEDURE: Left hip INDICATION: Pain in left hip TECHNIQUE: XR AP pelvis, crosstable lateral left hip COMPARISON: 02/05/2021 FINDINGS: Mild left and moderate right hip joint space narrowing with minimal acetabular spur formation, little changed. No fracture or dislocation. [facility] Provider, Jesus Riley - 04/12/2023 * * *Final Report* * * DATE OF EXAM: Apr 10 2023 9:06AM MANUEL Traore9 - XR HIP 2V AP/ LAT LT [...] or dislocation. IMPRESSION IMPRESSION: Bilateral hip osteoarthrosis Resistance Brazer: PSCB Transcribe Date/Time: Apr 12 2023 4:04P Dictated by : ISAEL MAGAÑA MD This examination was interpreted and the report reviewed and electronically signed by: ISAEL MAGAÑA MD on Apr 12 2023 4:05PM EST [facility] XR Hip - left AP and Lateral Ordered By: Ccf Provider on 04-12-2023 [facility] XR Hip - left AP and Lateral on 04-10-2023 Radiology Study observation (narrative) [facility] Absolute lymphocyte countOrd ered By: Norma Davies on 03-06-2023 Lymphocytes Auto (Unsp spec) [#/Vol] 0.52 10*3/uL 0.83-4.51 [facility] Basophil percentageOrdered B y: Norma Davies on 03-06-2023 Basophils/100 WBC (Bld) 0.6 % 0-1 [facility] Bilirubin [Mass/Vol] 0.40 mg/dL 0.20-1.00 [facility] Comment on above: For patients on eltr ombopag therapy, use of Dimension Magnolia TBIL is not recommended. Chloride [Moles/Vol] 107 mmol/L 98-107 [facility] Cholesterol [Mass/Vol] 172 mg/dL <200 [facility] Comment on above: <200 mg/dL Desirable 200-240 mg/dL Borderline >240 mg/dL High Risk Eosinophils/100 WBC (Bld) 1.9 % 0-5 [facility] Glucose [Mass/Vol] 88 mg/dL 74-106 [facility] Neutrophils (Bld) [#/Vol] 4.2 10*3/uL 2.0-7.7 [facility] Neutrophils/100 WBC (Bld) 80.5 % 47-70 [facility] Potassium [Moles/Vol] 3.9 mmol/L 3.5-5.1 [facility] Protein [Mass/Vol] 7.5 g/dL 6.4-8.2 [facility] Sodium [Moles/Vol] 140 mmol/L 136-145 [facility] Triglyceride [Mass/Vol] 126 mg/dL <199 [facility] Comment on above: The drugs N-Acetylcy steine and Metamizole may falsely depress this assay.Serum Triglycerides Reference Interval Normal <150 mg/dL Borderline high 150 - 199 mg/dL High 200 - 499 mg/dL Very High > or = 500 mg/dL WBC (Bld) [#/Vol] 5.3 10*3/uL 4.4-11.0 [facility] Blood erythrocytes count (nu mber/volume)Ordered By: Norma Davies on 03-06-2023 RBC (Bld) [#/Vol] 4.15 10*6/uL 4.6-6.2 [facility] Blood hemoglobin measurement (mass/volume)Ordered By: Norma Davies on 03-06-2023 Hemoglobin (Bld) [Mass/Vol] 13.3 g/dL 13.0-16.5 [facility] Blood lymphocytes/100 leukoc ytesOrdered By: Norma Davies on 03-06-2023 Lymphocytes/100 WBC (Bld) 9.9 % 19-41 [facility] Blood manual differential co mment interpretation (narrative result)Ordered By: Norma Davies on 03-06-2023 Manual differential comment Abhijit (Bld) [Interp] SCANNED [facility] Blood monocytes/100 leukocyt esOrdered By: Norma Davies on 03-06-2023 Monocytes/100 WBC (Bld) 6.3 % 0-10 [facility] Blood platelet mean volumeOr dered By: Norma Davies on 03-06-2023 Platelet mean volume (Bld) [Entitic vol] 11.3 fL 6.2-12.0 [facility] Determination of erythrocyte mean corpuscular volume (MCV)Ordered By: Norma Davies on 03-06-2023 MCV (RBC) [Entitic vol] 98.6 fL 80-94 [facility] Hematocrit Auto (Bld) [Volum e fraction]Ordered By: Norma Davies on 03-06-2023 Hematocrit (Bld) [Volume fraction] 40.9 % 40-54 [facility] Laboratory - Chemistry and C hemistry - challengeOrdered By: Norma Davies on 03-06-2023 ALP [Catalytic activity/Vol] 82 U/L 45-117 [facility] ALT [Catalytic activity/Vol] 21 U/L 16-61 [facility] CO2 [Moles/Vol] 29.0 mmol/L 21.0-32.0 [facility] Globulin (S) [Mass/Vol] 3.7 g/dL 2.2-4.2 [facility] Urea nitrogen/Creatinine [Mass ratio] 16.0 mg/mg 10-20 [facility] - Hematology and Cell countsOrdered By: Norma Davies on 03-06-2023 Erythrocyte distribution width (RBC) [Entitic vol] 47.3 fL 35.1-43.9 [facility] Erythrocyte distribution width (RBC) [Ratio] 13.2 % 11.6-14.6 [facility] Immature granulocytes/100 WBC (Bld) 0.800 % 0.0-0.9 [facility] Comment on above: IG% - Immature Granu locytes (promyelocytes, myelocytes and metamyelocytes) > 1% indicates that a LEFT SHIFT is Present. MCH (RBC) [Entitic mass] 32.0 pg 27.0-32.0 [facility] Nucleated RBC/100 WBC (Bld) [Ratio] 0 % 0-5 [facility] MCHC Auto (RBC) [Mass/Vol]Or dered By: Norma Davies on 03-06-2023 MCHC (RBC) [Mass/Vol] 32.5 g/dL 32-36 [facility] No Panel InformationOrdered By: Norma Davies on 03-06-2023 Estimated GFR (MDRD) Amer 73 mL/min >60 [facility] Comment on above: GFR Calc Estimated GFR (MDRD) Non-Af Amer 61 mL/min >60 [facility] Comment on above: Non- GFR Calc Thyroid Stimulating Hormone (TSH) 2.35 uIU/mL 0.358-3.74 [facility] Platelets bldOrdered By: Corey Davies on 03-06-2023 Platelets (Bld) [#/Vol] 155 10*3/uL 150-450 [facility] Serum or plasma albumin faustino urement (mass/volume)Ordered By: Norma Davies on 03-06-2023 Albumin [Mass/Vol] 3.8 g/dL 3.2-5.0 [facility] Serum or plasma albumin/glob ulin mass ratioOrdered By: Norma Davies on 03-06-2023 Albumin/Globulin [Mass ratio] 1.0 {ratio} 0.9-2.4 [facility] Serum or plasma calcium faustino urement (mass/volume)Ordered By: Norma Davies on 03-06-2023 Calcium [Mass/Vol] 9.4 mg/dL 8.5-10.1 [facility] Serum or plasma cholesterol in HDL measurement (mass/volume)Ordered By: Norma Davies on 03-06-2023 Cholesterol in HDL [Mass/Vol] 48 mg/dL >40 [facility] Comment on above: The drugs N-Acetylcy steine and Metamizole may falsely depress this assay. Reference Range HDL <40 mg/dL Low HDL Cholesterol HDL >or= 60 mg/dL High HDL Cholesterol Serum or plasma cholesterol in VLDL measurement (mass/volume)Ordered By: Norma Davies on 03-06-2023 Cholesterol in VLDL [Mass/Vol] 25 mg/dL 5-40 [facility] Serum or plasma creatinine m easurement (mass/volume)Ordered By: Norma Davies on 03-06-2023 Creatinine [Mass/Vol] 1.25 mg/dL 0.70-1.30 [facility] Comment on above: The validity of the calculated GFR & GFRAA in patients over 70 years has not been determined. Clinical correlation is essential. Serum or plasma low density lipoprotein (LDL) cholesterol measurement (mass/volume)Ordered By: Norma Davies on 03-06-2023 Cholesterol in LDL [Mass/Vol] 99 mg/dL 0-130 [facility] Serum or plasma urea nitroge n measurement (mass/volume)Ordered By: Norma Davies on 03-06-2023 Urea nitrogen [Mass/Vol] 20 mg/dL 7-18 [facility] Thin prep Papanicolaou smear with manual screeningOrdered By: Norma Davies on 03-06-2023 Thin prep Papanicolaou smear with manual screening 15 U/L 15-37 [facility] Thin prep Papanicolaou smear with manual screening 4 5-15 [facility] Whole blood hemoglobin A1c/t otal hemoglobin ratio (mass fraction)Ordered By: Norma Davies on 03-06-2023 HbA1c (Bld) [Mass fraction] 4.9 % 3.8-5.6 [facility] Comment on above: Normal < 5.7 % Predi abetic 5.7 - 6.4 % Diabetic >or= 6.5 % Please note range changes. No Panel InformationOrdered By: Ccf Provider on 02-07-2023 [facility] XR Hand - left PA and Latera l and Obliqueon 02-07-2023 IMPRESSION: Degenera tive changes. No acute abnormality Resistance Brazer: SAMANTHA Transcribe Date/Time: Feb 07 2023 7:11P Dictated by : ISAEL MAGAÑA MD This examination was interpreted and the report reviewed and electronically signed by: ISAEL MAGAÑA MD on Feb 07 2023 7:13PM [facility] * * *Final Report* * * DATE OF EXAM: Feb 05 2023 2:48PM MDO 5345 - XR HAND 3V PA/LAT/OBL LT [...] No erosion or focal soft tissue swelling. [facility] Provider, Jesus Riley - 02/07/2023 * * *Final Report* * * DATE OF EXAM: Feb 05 2023 2:48PM MDO 5345 - XR HAND 3V PA/LAT/OBL LT [...] IMPRESSION IMPRESSION: Degenerative changes. No acute abnormality Resistance Brazer: [facility] Transcribe Date/Time: Feb 07 2023 7:11P Dictated by : ISAEL MAGAÑA MD This examination was interpreted and the report reviewed and electronically signed by: ISAEL MAGAÑA MD on Feb 07 2023 7:13PM EST [facility] XR Hand - right PA and Later al and Obliqueon 02-07-2023 IMPRESSION: Degenera tive changes. No acute abnormality Resistance Brazer: [facility] Transcribe Date/Time: Feb 07 2023 7:11P Dictated by : ISAEL MAGAÑA MD This examination was interpreted and the report reviewed and electronically signed by: ISAEL MAGAÑA MD on Feb 07 2023 7:15PM EST [facility] * * *Final Report* * * [...] No erosion or focal soft tissue swelling. [facility] Provider, [facility] [place] - 02/07/2023 * * *Final Report* * [...] IMPRESSION IMPRESSION: Degenerative changes. No acute abnormality Resistance Brazer: SAMANTHA Transcribe Date/Time: Feb 07 2023 7:11P Dictated by : ISAEL MAGAÑA MD This examination was interpreted and the report reviewed and electronically signed by: ISAEL MAGAÑA MD on Feb 07 2023 7:15PM EST [facility] XR HAND GENERAL 3V PA/LAT/OB L RIGHTon 02-05-2023 [facility] XR Hand - left PA and Latera l and Obliqueon 02-05-2023 Radiology Study observation (narrative) [facility] XR Hand - right PA and Later al and Obliqueon 02-05-2023 Radiology Study observation (narrative) [facility] US DVT LOWER LTon 12-02-2022 [facility] US Lower extremity vein - le fton 12-02-2022 Addendum by Provider , [facility] [place] on 12/02/2022 1:42 PM EST * * [...] on 12/02/2022 1:40 PM via verbal communication. Resistance Brazer: SAMANTHA Transcribe Date/Time: Dec 02 2022 1:39P Dictated by : ROSHNI GODINEZ MD This examination was interpreted and the report reviewed and electronically signed by: ROSHNI GODINEZ MD on Dec 02 2022 1:28PM EST This document has been addended by: ROSHNI GODINEZ MD on Dec 02 2022 1:40PM EST [facility] Radiology Study observation (narrative) [facility] US Lower extremity vein - le ftOrdered By: Ccf Provider on 12-02-2022 [facility] XR Shoulder - right 3 Viewso n 09-12-2022 IMPRESSION: Degenerative changes. Findings suggestive of rotator cuff calcific tendinosis. Resistance Brazer: P[facility]B Transcribe Date/Time: Sep 12 2022 11:35A Dictated by : VONDA BARON MD This examination was interpreted and the report reviewed and electronically signed by: VONDA BARON MD on Sep 12 2022 11:38AM EST [facility] * * *Final Report* [...] other significant abnormality. [facility] Provider, Jesus perera [place] - 09/12/2022 * * *Final Report* * [...] Findings suggestive of rotator cuff calcific tendinosis. Resistance Brazer: SAMANTHA Transcribe Date/Time: Sep 12 2022 11:35A Dictated by : VONDA BARON MD This examination was interpreted and the report reviewed and electronically signed by: VONDA BARON MD on Sep 12 2022 11:38AM EST [facility] Radiology Study observation (narrative) [facility] XR Shoulder - right 3 ViewsO rdered By: Ccf Provider on 09-12-2022 [facility] NM PET/CT PROSTATE WBon 07-29 NM PET/CT PROSTATE WB * * *Final Report* * * DATE OF EXAM: Aug 07 2022 9:51AM [facility] 0093 - NM PET/CT PROSTATE WB / PROCEDURE REASON: C61 * * * * Physician Interpretation * * * * [id number] WHOLE BODY PET/CT SCAN HISTORY: 72-year-old man with prostate cancer. Pre-treatment staging. Prostate cancer grade: Grade Group 2 (Second Mesa score 3 + 4) 2021 Therapy: Prior ADT: PSA: 5.5 ng/mL (06/04/2022) PREVIOUS COMPARISON PET/CT STUDY: none OTHER COMPARISON: MRI 07/17/2022 TECHNIQUE: 10 mCi of [id number]. The PET imaging was obtained between TOP [...] lesions in the bone, follow-up is recommended. Resistance Brazer: PSCB Transcribe Date/Time: Aug 07 2022 10:21A Dictated by : BECKIE MARTINEZ MD This examination was interpreted and the report reviewed and electronically signed by: EBCKIE MARTINEZ MD on Aug 07 2022 10:42AM EST [id number] Normal [facility] CNOVon 07-29-2022 CNOV Office Visit (AKURFL ) -- SYLVIE CHIU ([id number]) 1950 M [facility] Date Time Provider Department 07/29/22 1:15 PM VAZQUEZ PAGE During your visit today, we recorded the following information about you: Blood pressure Weight Height 128/76 145.2 kg 1.803 m Vazquez Page DO 07/29/2022 1:57 PM Signed [facility] [place] [facility] LOCATION: [address] [place] [address] ESTABLISHED PATIENT PATIENT INFO: Sylvie Chiu 72 [...] left lateral base, biopsy: - Prostatic adenocarcinoma, Second Mesa score 3+4=7, grade group 2, involving 1 of 1 core (6 mm, 85%). - Second Mesa pattern 4 comprises approximately 10% of the carcinoma. - Small gland cribriform morphology is identified. - Atypical intraductal proliferation (AIP) is present. E. Prostate, left lateral mid, biopsy: - Prostatic adenocarcinoma, Second Mesa score 3+3=6, grade group 1, involving 1 of 1 core (2 mm, 50%). F. Prostate, left lateral apex, biopsy: - Prostatic adenocarcinoma, Second Mesa score 3+3=6, grade group 1, involving 1 [...] right lateral mid, biopsy: - Prostatic adenocarcinoma, Second Mesa score 3+3=6, grade group 1, involving 1 of 1 core (1 mm, 10%). L.Prostate, right lateral apex, biopsy: - Prostatic adenocarcinoma, Second Mesa score 3+3=6, grade group 1, involving 1 of 1 core (2 mm, 30%). Prostate Cancer Biopsy Summary Number of cores examined: 13 Number of cores positive: 10 Highest Grade Group: 2 Highest % of core involvement: 85 % Cribriform pattern 4: Present, small gland Intraductal carcinoma: Suspicious Gis Mapping Technician tumor block to use for additional studies: [...] 60.9 Lymph% (%) Date Value 10/04/2021 29.0 Bledsoe% (%) Date Value 10/04/2021 6.7 Eosin% (%) Date Value 10/04/2021 2.4 Baso% (%) Date Value 10/04/2021 1.0 Abs Neut (ANC) (k/uL) Date Value 10/04/2021 4.06 Abs Lym (X10-3/UL) Date Value 03/22/2010 1.6 Abs Bledsoe (k/uL) Date Value 10/04/2021 0.45 Abs Eosin [...] 11/21/2021 IMAGING: MRI PROSTATE WO/W IVCON (Order [id number]) Patient Info Patient Name Sex Sylvie Dumont ([id number]) Male 1950 07/21/2022 11:06 AM - Radi (more content not included)... Normal [facility] MRI PROSTATE WO/W IVCONon MRI PROSTATE WO/W IVCON * * *Final Report* * * DATE OF EXAM: Jul 17 2022 11:00AM [place] [id number] - MRI PROSTATE WO/W IVCON / PROCEDURE REASON: Prostate cancer (HCC) * * * * Physician Interpretation * * * * EXAMINATION: MRI PELVIS WITHOUT AND WITH IV CONTRAST (MULTIPARAMETRIC PROSTATE MRI) CLINICAL HISTORY: 72 years old male with elevated PSA and prostate biopsy from 05/08/2022 showing Samantha 3+3 = 7 left base and Second Mesa 3+3 = 6 in left mid gland, [...] volume were obtained using a semi-automated software (Lemonwise). CONTRAST: IV: 20 cc of Dotarem. COMPARISON: [...] of suspicion for clinically significant prostate cancer (Samantha score 3 + 4 or higher). PI-RADS v2.1 Assessment Categories: PI-RADS 1: Clinically significant cancer is highly unlikely PI-RADS 2: Clinically significant cancer is unlikely PI-RADS 3: Clinically significant cancer is equivocal PI-RADS 4: Clinically significant cancer is likely PI-RADS 5: Clinically significant cancer is highly likely (V.05.2018) Resistance Brazer: SAMANTHA Transcribe Date/Time: Jul 21 2022 10:47A Dictated by : HONEY LAMB MD This examination was interpreted and the report reviewed and electronically signed by: HONEY LAMB MD on Jul 21 2022 11:03AM EST [id number] Normal [facility] CNPNon 06-19-2022 CNPN Telephone (AKURFL) -- CUTLISA CAMPBELLRY Eyal ([id number]) 1950 [facility] Date Time Provider Department 06/19/22 VAZQUEZ PAGE During your visit today, we recorded the following information about you: Julia Chaveztroy Watts 06/19/2022 11:56 AM Signed Decipher test sent. Julia Hernandez Stefanie Allergies As of Date: 06/19/2022 (No Known Allergies) Date Reviewed: 06/19/2022 Reviewed by: DO Comfort Dean Fully Assessed Reason for Visit: Orders [681] [...] instructed as needed. hot humid weather - lisinopril-hydrochlorothia zide (PRINZIDE,ZESTORETIC) 20-12.5 mg per tablet Take 1 tablet by mouth once daily. - modafinil(PROVIGIL 200 MG TAB) Take one(1) tablet daily in the morning. - pantoprazole (PROTONIX) 40 mg ORAL TbEC Take one(1) tablet daily. - BIPAP Please supply patient with Full face mask, [place] [employer]et[employer] VIP [phone]. Problem List As Of Date [...] (HCC) [Z68.41] 10/01/2018 Encounter Status:Closed by JULIA HERNANEDZ CMA on 06/19/22 Normal [facility] CT PELVIS W IVCONon 06-09-20 [facility] No Panel Informationon 06-09 [facility] Absolute lymphocyte counton 03-03-2022 Lymphocytes Auto (Unsp spec) [#/Vol] 0.91 10*3/uL 0.83-4.51 [facility] Work Phone: Basophil percentageon 2021 Basophils/100 WBC (Bld) 0.8 % 0-1 [facility] Work Phone: Bilirubin [Mass/Vol] 0.40 mg/dL 0.20-1.00 [facility] Work Phone: Comment on above: For patients on eltr ombopag therapy, use of Dimension Magnolia TBIL is not recommended. Chloride [Moles/Vol] 106 mmol/L 98-107 [facility] Work Phone: Cholesterol [Mass/Vol] 153 mg/dL <200 [facility] Work Phone: Comment on above: <200 mg/dL Desirable 200-240 mg/dL Borderline >240 mg/dL High Risk Eosinophils/100 WBC (Bld) 2.7 % 0-5 [facility] Work Phone: Glucose [Mass/Vol] 106 mg/dL 74-106 [facility] Work Phone: Comment on above: Fasting Glucose resu lt from 100 to 125 mg/dL suggests IMPAIRED HOMEOSTASIS per A.D.A. criteria. Neutrophils (Bld) [#/Vol] 2.2 10*3/uL 2.0-7.7 [facility] Work Phone: Neutrophils/100 WBC (Bld) 60.7 % 47-70 [facility] Work Phone: Potassium [Moles/Vol] 4.2 mmol/L 3.5-5.1 [facility] Work Phone: Protein [Mass/Vol] 7.4 g/dL 6.4-8.2 [facility] Work Phone: Sodium [Moles/Vol] 140 mmol/L 136-145 [facility] Work Phone: Triglyceride [Mass/Vol] 120 mg/dL [facility] Work Phone: Comment on above: The drugs N-Acetylcy steine and Metamizole may falsely depress this assay.Serum Triglycerides Reference Interval Normal <150 mg/dL Borderline high 150 - 199 mg/dL High 200 - 499 mg/dL Very High > or = 500 mg/dL WBC (Bld) [#/Vol] 3.7 10*3/uL 4.4-11.0 [facility] Work Phone: Blood erythrocytes count (nu mber/volume)on 03-03-2022 RBC (Bld) [#/Vol] 4.75 10*6/uL 4.6-6.2 [facility] Work Phone: Blood hemoglobin measurement (mass/volume)on 03-03-2022 Hemoglobin (Bld) [Mass/Vol] 14.6 g/dL 13.0-16.5 [facility] Work Phone: Blood lymphocytes/100 leukoc yteson 03-03-2022 Lymphocytes/100 WBC (Bld) 24.7 % 19-41 [facility] Work Phone: Blood monocytes/100 leukocyt eson 03-03-2022 Monocytes/100 WBC (Bld) 10.3 % 0-10 [facility] Work Phone: Blood platelet mean volumeon 03-03-2022 Platelet mean volume (Bld) [Entitic vol] 12.2 fL 6.2-12.0 [facility] Work Phone: Determination of erythrocyte mean corpuscular volume (MCV)on 03-03-2022 MCV (RBC) [Entitic vol] 94.3 fL 80-94 [facility] Work Phone: Hematocrit Auto (Bld) [Volum e fraction]on 03-03-2022 Hematocrit (Bld) [Volume fraction] 44.8 % 40-54 [facility] Work Phone: Laboratory - Chemistry and C hemistry - challengeon 03-03-2022 ALP [Catalytic activity/Vol] 81 U/L 45-117 [facility] Work Phone: ALT [Catalytic activity/Vol] 28 U/L 16-61 [facility] Work Phone: CO2 [Moles/Vol] 30.0 mmol/L 21.0-32.0 [facility] Work Phone: Globulin (S) [Mass/Vol] 3.5 g/dL 2.2-4.2 [facility] Work Phone: Urea nitrogen/Creatinine [Mass ratio] 15.1 mg/mg 10-20 [facility] Work Phone: Laboratory - Hematology and Cell countson 03-03-2022 Erythrocyte distribution width (RBC) [Entitic vol] 47.8 fL 35.1-43.9 [facility] Work Phone: Erythrocyte distribution width (RBC) [Ratio] 13.8 % 11.6-14.6 [facility] Work Phone: Immature granulocytes/100 WBC (Bld) 0.800 % 0.0-0.9 [facility] Work Phone: Comment on above: IG% - Immature Granu locytes (promyelocytes, myelocytes and metamyelocytes) > 1% indicates that a LEFT SHIFT is Present. MCH (RBC) [Entitic mass] 30.7 pg 27.0-32.0 [facility] Work Phone: Nucleated RBC/100 WBC (Bld) [Ratio] 0 % 0-5 [facility] Work Phone: MCHC Auto (RBC) [Mass/Vol]on 03-03-2022 MCHC (RBC) [Mass/Vol] 32.6 g/dL 32-36 [facility] Work Phone: No Panel Informationon 03-03 Estimated GFR (MDRD) Amer 78 mL/min >60 [facility] Work Phone: Comment on above: GFR Calc Estimated GFR (MDRD) Non-Af Amer 64 mL/min >60 [facility] Work Phone: Comment on above: Non- GFR Calc Prostate Specific Antigen Total 5.69 ng/mL 0.0-4.0 [facility] Work Phone: Comment on above: This test was perfor med using the TPSA assay method for theSonar.me chemistry system. Values obtained with differentassay methods cannot be used interchangably.When changing PSA assays in the course of monitoring apatient, additional sequential testing should be carriedout to confirm baseline values. Platelets bldon 03-03-2022 Platelets (Bld) [#/Vol] 127 10*3/uL 150-450 [facility] Work Phone: Serum or plasma albumin faustino urement (mass/volume)on 03-03-2022 Albumin [Mass/Vol] 3.9 g/dL 3.2-5.0 [facility] Work Phone: Serum or plasma albumin/glob ulin mass ratioon 03-03-2022 Albumin/Globulin [Mass ratio] 1.1 {ratio} 0.9-2.4 [facility] Work Phone: Serum or plasma calcium faustino urement (mass/volume)on 03-03-2022 Calcium [Mass/Vol] 8.9 mg/dL 8.5-10.1 [facility] Work Phone: Serum or plasma cholesterol in HDL measurement (mass/volume)on 03-03-2022 Cholesterol in HDL [Mass/Vol] 35 mg/dL [facility] Work Phone: Comment on above: The drugs N-Acetylcy steine and Metamizole may falsely depress this assay. Reference Range HDL <40 mg/dL Low HDL Cholesterol HDL >or= 60 mg/dL High HDL Cholesterol Serum or plasma cholesterol in VLDL measurement (mass/volume)on 03-03-2022 Cholesterol in VLDL [Mass/Vol] 24 mg/dL 5-40 [facility] Work Phone: Serum or plasma creatinine m easurement (mass/volume)on 03-03-2022 Creatinine [Mass/Vol] 1.19 mg/dL 0.70-1.30 [facility] Work Phone: Comment on above: The validity of the calculated GFR & GFRAA in patients over 70 years has not been determined. Clinical correlation is essential. Serum or plasma low density lipoprotein (LDL) cholesterol measurement (mass/volume)on 03-03-2022 Cholesterol in LDL [Mass/Vol] 94 mg/dL 0-130 [facility] Work Phone: Serum or plasma urea nitroge n measurement (mass/volume)on 03-03-2022 Urea nitrogen [Mass/Vol] 18 mg/dL 7-18 [facility] Work Phone: Thin prep Papanicolaou smear with manual screeningon 03-03-2022 Thin prep Papanicolaou smear with manual screening 24 U/L 15-37 [facility] Work Phone: Thin prep Papanicolaou smear with manual screening 4 5-15 [facility] Work Phone: XR KNEE GENERAL 4V AP BOTH/P A BOTH/LAT/MERC LEFTon 12-24-2021 [facility] XR CHEST 2V FRONTAL/LATon XR CHEST [...] thoracic spine. IMPRESSION: No acute radiographic abnormality. Resistance Brazer: PSCB Transcribe Date/Time: Aug 15 2021 11:12A Dictated by : ALBERT WHITE MD This examination was interpreted and the report reviewed and electronically signed by: ALBERT WHITE MD on Aug 15 2021 11:14AM EST [id number] Normal [facility] No Panel Information [facility] Vital Signs Date Time Vital Sign Value Performing Clinician Facility 03-09-2025 20:38-0400 Body height 182.88 cm Norma FREGOSOC Work Phone: [facility] 03-09-2025 20:38-0400 Body mass index (BMI) [Ratio] 40.4 kg/m2 Norma Davies NP-C Work Phone: [facility] 03-09-2025 20:38-0400 Body temperature 97.7 [degF] Norma Davise NP-C Work Phone: [facility] 03-09-2025 20:38-0400 Body weight 135.17 kg Norma Davies NP-C Work Phone: [facility] 03-09-2025 20:38-0400 Diastolic blood pressure 70 mm[Hg] Norma Davies NP-C Work Phone: [facility] 03-09-2025 20:38-0400 Heart rate 52 /min Norma Davies FBI PROFILER-C Work Phone: [facility] 03-09-2025 20:38-0400 Respiratory rate 18 /min Norma Davies FBI PROFILER-C Work Phone: [facility] 03-09-2025 20:38-0400 SaO2% (BldA) [Mass fraction] 95 % Norma Davies FBI PROFILER-C Work Phone: [facility] 03-09-2025 20:38-0400 Systolic blood pressure 130 mm[Hg] Norma Davies FBI PROFILER-C Work Phone: [facility] 03-02-2025 07:55-0400 Body height 180.3 cm Natan Alcazar DO Work Phone: [facility] 03-02-2025 07:55-0400 Body mass index (BMI) [Ratio] 41.7 kg/m2 Natan Alcazar DO Work Phone: [facility] 03-02-2025 07:55-0400 Body weight 135.63 kg Natan Alcazar DO Work Phone: [facility] 12-23-2024 09:45-0400 Body mass index (BMI) [Ratio] 42.46 kg/m2 Hussein Ordonez MD Work Phone: [facility] 12-23-2024 09:45-0400 Body weight 142.02 kg Hussein Ordonez MD Work Phone: [facility] 08-02-2024 09:14-0500 Body height 182.9 cm Natan Alcazar DO Work Phone: [facility] 08-02-2024 09:14-0500 Body mass index (BMI) [Ratio] 42.72 kg/m2 Natan Alcazar DO Work Phone: [facility] 08-02-2024 09:14-0500 Body weight 142.88 kg Natan Alcazar DO Work Phone: [facility] 02-18-2024 08:18-0400 Diastolic blood pressure 74 mm[Hg] Francisco Davis BULB PLANTER.ROCKET TEST FIRE WORKER Work Phone: [facility] 02-18-2024 08:18-0400 Heart rate 52 /min Francisco Davis BULB PLANTER.ROCKET TEST FIRE WORKER Work Phone: [facility] 02-18-2024 08:18-0400 Systolic blood pressure 150 mm[Hg] Francisco Davis BULB PLANTER.ROCKET TEST FIRE WORKER Work Phone: [facility] 02-18-2024 08:15-0400 Body height 183.4 cm Francisco Davis BULB PLANTER.ROCKET TEST FIRE WORKER Work Phone: [facility] 02-18-2024 08:15-0400 Body mass index (BMI) [Ratio] 42.49 kg/m2 Francisco Davis BULB PLANTER.ROCKET TEST FIRE WORKER Work Phone: [facility] 02-18-2024 08:15-0400 Body temperature 97.81 [degF] Francisco Davis BULB PLANTER.ROCKET TEST FIRE WORKER Work Phone: [facility] 02-18-2024 08:15-0400 Body weight 142.88 kg Francisco Davis BULB PLANTER.ROCKET TEST FIRE WORKER Work Phone: [facility] 01-29-2024 15:40-0400 Diastolic blood pressure 67 mm[Hg] Selwyn Michelle MD Work Phone: [facility] 01-29-2024 15:40-0400 Heart rate 71 /min Selwyn Michelle MD Work Phone: [facility] 01-29-2024 15:40-0400 Systolic blood pressure 133 mm[Hg] Selwyn Michelle MD Work Phone: [facility] 12-17-2023 09:26-0400 Body weight 145.1 kg Hussein Ordonez MD Work Phone: [facility] 12-14-2023 13:57-0400 Body height 180.3 cm Alex Erazo MD Work Phone: [facility] 12-14-2023 13:57-0400 Body temperature 97.59 [degF] Alex Erazo MD Work Phone: [facility] 12-14-2023 13:57-0400 Body weight 146.06 kg Alex Erazo MD Work Phone: [facility] 12-14-2023 13:57-0400 Diastolic blood pressure 73 mm[Hg] Alex Erazo MD Work Phone: [facility] 12-14-2023 13:57-0400 Heart rate 58 /min Alex Erazo MD Work Phone: [facility] 12-14-2023 13:57-0400 Systolic blood pressure 117 mm[Hg] Alex Erazo MD Work Phone: [facility] 06-15-2023 11:52-0400 Body weight 143.79 kg Hussein Ordonez MD Work Phone: [facility] 03-12-2023 12:46-0400 Diastolic blood pressure 63 mm[Hg] Patricia Naso BULB PLANTER.ROCKET TEST FIRE WORKER Work Phone: [facility] 03-12-2023 12:46-0400 Systolic blood pressure 119 mm[Hg] Patricia Naso BULB PLANTER.ROCKET TEST FIRE WORKER Work Phone: [facility] 03-12-2023 12:45-0400 Body temperature 97.5 [degF] Patricia Naso BULB PLANTER.ROCKET TEST FIRE WORKER Work Phone: [facility] 03-12-2023 12:45-0400 Body weight 139.44 kg Patricia Naso BULB PLANTER.ROCKET TEST FIRE WORKER Work Phone: [facility] 03-12-2023 12:45-0400 Heart rate 60 /min Patricia Naso BULB PLANTER.ROCKET TEST FIRE WORKER Work Phone: [facility] 03-12-2023 12:45-0400 Respiratory rate 18 /min Patricia Naso BULB PLANTER.ROCKET TEST FIRE WORKER Work Phone: [facility] 03-12-2023 12:45-0400 SaO2% (BldA) [Mass fraction] 100 % Patricia Mims APRN.CNP Work Phone: [facility] 03-06-2023 18:02-0400 Body height 182.88 cm [facility] 03-06-2023 18:02-0400 Body mass index (BMI) [Ratio] 42.3 kg/m2 [facility] 03-06-2023 18:02-0400 Body temperature 97.5 [degF] [facility] 03-06-2023 18:02-0400 Body weight 141.52 kg [facility] 03-06-2023 18:02-0400 Diastolic blood pressure 70 mm[Hg] [facility] 03-06-2023 18:02-0400 Heart rate 71 /min [facility] 03-06-2023 18:02-0400 Respiratory rate 18 /min [facility] 03-06-2023 18:02-0400 SaO2% (BldA) [Mass fraction] 96 % [facility] 03-06-2023 18:02-0400 Systolic blood pressure 130 mm[Hg] [facility] 01-12-2023 10:27-0400 Body weight 145.79 kg Hussein Ordonez MD Work Phone: [facility] 12-15-2022 18:12-0400 Body mass index (BMI) [Ratio] 43.8 kg/m2 [facility] 12-15-2022 18:12-0400 Body temperature 98.1 [degF] [facility] 12-15-2022 18:12-0400 Body weight 146.51 kg [facility] 12-15-2022 18:12-0400 Diastolic blood pressure 60 mm[Hg] [facility] 12-15-2022 18:12-0400 Heart rate 82 /min [facility] 12-15-2022 18:12-0400 Respiratory rate 18 /min [facility] 12-15-2022 18:12-0400 SaO2% (BldA) [Mass fraction] 96 % [facility] 12-15-2022 18:12-0400 Systolic blood pressure 122 mm[Hg] [facility] 12-10-2022 10:38-0400 Body weight 148.73 kg Hussein Ordonez MD Work Phone: [facility] 12-09-2022 09:04-0400 Body temperature 98.1 [degF] Patricia Naso BULB PLANTER.ROCKET TEST FIRE WORKER Work Phone: [facility] 12-09-2022 09:04-0400 Body weight 148.73 kg Patricia Naso BULB PLANTER.ROCKET TEST FIRE WORKER Work Phone: [facility] 12-09-2022 09:04-0400 Diastolic blood pressure 70 mm[Hg] Patricia Naso BULB PLANTER.ROCKET TEST FIRE WORKER Work Phone: [facility] 12-09-2022 09:04-0400 Heart rate 57 /min Patricia Naso BULB PLANTER.ROCKET TEST FIRE WORKER Work Phone: [facility] 12-09-2022 09:04-0400 Respiratory rate 18 /min Patricia Naso BULB PLANTER.ROCKET TEST FIRE WORKER Work Phone: [facility] 12-09-2022 09:04-0400 SaO2% (BldA) [Mass fraction] 97 % Patricia Naso BULB PLANTER.ROCKET TEST FIRE WORKER Work Phone: [facility] 12-09-2022 09:04-0400 Systolic blood pressure 136 mm[Hg] Patricia Naso BULB PLANTER.ROCKET TEST FIRE WORKER Work Phone: [facility] 12-03-2022 10:47-0500 Body weight 149.19 kg Hussein Ordonez MD Work Phone: [facility] 11-26-2022 10:10-0500 Body weight 147.33 kg Hussein Ordonez MD Work Phone: [facility] 11-19-2022 13:21-0500 Body weight 147.37 kg Hussein Ordonez MD Work Phone: [facility] 11-11-2022 10:39-0500 Body weight 148.1 kg Hussein Ordonez MD Work Phone: [facility] 09-09-2022 08:28-0500 Body temperature 98.29 [degF] Injection Mc Work Phone: [facility] 09-09-2022 08:28-0500 Diastolic blood pressure 66 mm[Hg] Injection Mc Work Phone: [facility] 09-09-2022 08:28-0500 Heart rate 51 /min Injection Mc Work Phone: [facility] 09-09-2022 08:28-0500 SaO2% (BldA) [Mass fraction] 96 % Injection Mc Work Phone: [facility] 09-09-2022 08:28-0500 Systolic blood pressure 101 mm[Hg] Injection Mc Work Phone: [facility] 09-04-2022 12:06-0500 Body height 180.3 cm Brandtbebe Page DO Work Phone: [facility] 09-04-2022 12:06-0500 Body weight 146.97 kg Brandtbebe Page DO Work Phone: [facility] 08-11-2022 13:00-0500 Body height 180.2 cm Rickie Agosto MD Work Phone: [facility] 08-11-2022 13:00-0500 Body temperature 98.01 [degF] Rickie Agosto MD Work Phone: [facility] 08-11-2022 13:00-0500 Body weight 147.87 kg Rickie Agosto MD Work Phone: [facility] 08-11-2022 13:00-0500 Diastolic blood pressure 76 mm[Hg] Rickie Agosto MD Work Phone: [facility] 08-11-2022 13:00-0500 Heart rate 73 /min Rickie Agosto MD Work Phone: [facility] 08-11-2022 13:00-0500 Respiratory rate 16 /min Rickie Agosto MD Work Phone: [facility] 08-11-2022 13:00-0500 SaO2% (BldA) [Mass fraction] 97 % Rickie Agosto MD Work Phone: [facility] 08-11-2022 13:00-0500 Systolic blood pressure 144 mm[Hg] Rickie Aogsto MD Work Phone: [facility] 07-29-2022 13:07-0400 Body height 180.3 cm Jayram Camilo DO Work Phone: [facility] 07-29-2022 13:07-0400 Body weight 145.15 kg Jayram Camilo DO Work Phone: [facility] 07-29-2022 13:07-0400 Diastolic blood pressure 76 mm[Hg] Jayram Camilo DO Work Phone: [facility] 07-29-2022 13:07-0400 Systolic blood pressure 128 mm[Hg] Jayram Camilo DO Work Phone: [facility] 06-24-2022 13:34-0400 Body weight 147.78 kg Hussein Ordonez MD Work Phone: [facility] 06-19-2022 09:07-0400 Body height 185.4 cm Jayram Camilo DO Work Phone: [facility] 06-19-2022 09:07-0400 Body weight 145.15 kg Jayram Camilo DO Work Phone: [facility] 03-03-2022 15:40-0400 Body height 182.88 cm [facility] Work Phone: 03-03-2022 15:40-0400 Body mass index (BMI) [Ratio] 43.7 kg/m2 [facility] Work Phone: 03-03-2022 15:40-0400 Body temperature 97.8 [degF] [facility] Work Phone: 03-03-2022 15:40-0400 Body weight 146.05 kg [facility] Work Phone: 03-03-2022 15:40-0400 Diastolic blood pressure 70 mm[Hg] [facility] Work Phone: 03-03-2022 15:40-0400 Heart rate 73 /min [facility] Work Phone: 03-03-2022 15:40-0400 Respiratory rate 18 /min [facility] Work Phone: 03-03-2022 15:40-0400 SaO2% (BldA) [Mass fraction] 96 % [facility] Work Phone: 03-03-2022 15:40-0400 Systolic blood pressure 128 mm[Hg] [facility] Work Phone: Encounters Encounter Date Encounter Type Care Provider Facility Start: 05-03-2025 End: 05-03-2025 ambulatory MAYRA BUENROSTRO Facility:[facility] Start: 04-21-2025 End: 04-21-2025 Patient encounter procedure Mayra Buenrostro PA-C Work Phone: Orthopaedics Comment on above: Primary osteoarthrit is of left hip (Primary Dx); Lumbago-sciatica due to displacement of lumbar intervertebral disc Start: 04-21-2025 End: 04-21-2025 ambulatory MAYRA BUENROSTRO Facility:[facility] Start: 04-21-2025 End: 04-21-2025 Subsequent hospital visit by physician [facility] Work Phone: Radiology Comment on above: Left hip pain [M25.5 52] Start: 04-18-2025 End: 04-18-2025 Orders Only Mayra Buenrostro PA-C Work Phone: Orthopaedics Comment on above: Left hip pain (Prima ry Dx) Start: 03-09-2025 End: 03-09-2025 ambulatory Norma Davies FBI PROFILER-C Work Phone: [facility] Work Phone: Start: 03-09-2025 End: 03-09-2025 Patient encounter procedure Norma Davies FBI PROFILER-C -Laboratory Specimen Work Phone: Start: 03-09-2025 End: 03-09-2025 ambulatory Norma Davies FBI PROFILER Facility:[facility] Start: 03-03-2025 End: 03-03-2025 Office outpatient visit 15 minutes Selwyn Leiva PA-C Work Phone: Orthopaedics Comment on above: Status post total ri ght knee replacement (Primary Dx); Primary osteoarthritis of left knee Start: 03-03-2025 End: 03-03-2025 ambulatory NORMA DAVIES Facility:[facility] Start: 03-03-2025 End: 03-03-2025 Subsequent hospital visit by physician Radio Michaels [facility] Work Phone: Radiology Comment on above: Left knee pain, unsp ecified chronicity [M25.562] Start: 03-02-2025 End: 03-02-2025 Patient encounter procedure Natan Alcazar DO Work Phone: Orthopaedics Comment on above: 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) Start: 03-02-2025 End: 03-02-2025 ambulatory NATAN ALCAZAR Facility:[facility] Start: 02-27-2025 End: 02-27-2025 Orders Only Selwyn Leiva PA-C Work Phone: Orthopaedics Comment on above: Left knee pain, unsp ecified chronicity (Primary Dx) Start: 01-19-2025 End: 01-19-2025 Emergency department patient visit NORMA DAVIES Facility:[facility] Start: 12-23-2024 End: 12-23-2024 ambulatory HUSSEIN ORDONEZ Facility:[facility] Start: 12-23-2024 End: 12-23-2024 Office [...] 09-14-2024 End: 09-14-2024 Patient encounter procedure [facility] Start: 09-14-2024 End: 09-14-2024 ambulatory HUSSEIN ORDONEZ [facility] Comment on above: Wound Care Start: 09-13-2024 End: 09-13-2024 Patient encounter procedure [facility] Start: 09-13-2024 End: 09-13-2024 ambulatory HUSSEIN ORDONEZ [facility] Comment on above: Wound Care Start: 09-12-2024 End: 09-12-2024 Patient encounter procedure [facility] Start: 09-12-2024 End: 09-12-2024 ambulatory HUSSEIN ORDONEZ [facility] Comment on above: Wound Care Start: 09-09-2024 End: 09-09-2024 Patient encounter procedure [facility] Start: 09-09-2024 End: 09-09-2024 ambulatory HUSSEIN [facility] Comment on above: Wound Care Start: 09-07-2024 End: 09-07-2024 Patient encounter procedure [facility] Start: 09-07-2024 End: 09-07-2024 ambulatory HUSSEIN ORDONEZ [facility] Comment on above: Wound Care Start: 09-06-2024 End: 09-06-2024 Patient encounter procedure [facility] Start: 09-06-2024 End: 09-06-2024 ambulatory HUSSEIN ORDONEZ [facility] Comment on above: Wound Care Start: 09-05-2024 End: 09-05-2024 Patient encounter procedure [facility] Start: 09-05-2024 End: 09-05-2024 ambulatory HUSSEIN ORDONEZ [facility] Comment on above: Wound Care Start: 08-31-2024 End: 08-31-2024 Patient encounter procedure [facility] Start: 08-31-2024 End: 08-31-2024 ambulatory HUSSEIN ORDONEZ [facility] Comment on above: Wound Care Start: 08-30-2024 End: 08-30-2024 Patient encounter procedure [facility] Start: 08-30-2024 End: 08-30-2024 ambulatory HUSSEIN ORDONEZ [facility] Comment on above: Wound Care Start: 08-29-2024 End: 08-29-2024 Patient encounter procedure [facility] Start: 08-29-2024 End: 08-29-2024 ambulatory HUSSEIN ORDONEZ [facility] Comment on above: Wound Care Start: 08-22-2024 End: 08-23-2024 ambulatory HUSSEIN ORDONEZ [facility] Comment on above: Wound Care Start: 08-22-2024 End: 08-22-2024 Patient encounter procedure [facility] Start: 08-19-2024 End: 08-19-2024 Patient encounter procedure [facility] Start: 08-19-2024 End: 08-19-2024 ambulatory HUSSEIN ORDONEZ [facility] Comment on above: Wound Care Start: 08-18-2024 End: 08-19-2024 ambulatory HUSSEIN ORDONEZ [facility] Comment on above: Wound Care Start: 08-18-2024 End: 08-18-2024 Patient encounter procedure [facility] Start: 08-17-2024 End: 08-17-2024 Patient encounter procedure [facility] Start: 08-17-2024 End: 08-17-2024 ambulatory HUSSEIN ORDONEZ [facility] Comment on above: Wound Care Start: 08-16-2024 End: 08-17-2024 ambulatory NATAN [facility] Comment on above: Wound Care Start: 08-16-2024 End: 08-16-2024 Patient encounter procedure Natan Alcazar DO Work Phone: Orthopaedics Comment on above: 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 (Primary Dx) Start: 08-15-2024 End: 08-16-2024 ambulatory HUSSEIN ORDONEZ [facility] Comment on above: Wound Care Start: 08-15-2024 End: 08-15-2024 Patient encounter procedure [facility] Start: 08-12-2024 End: 08-12-2024 Patient encounter procedure [facility] Start: 08-12-2024 End: 08-12-2024 ambulatory HUSSEIN ORDONEZ [facility] Comment on above: Wound Care Start: 08-11-2024 End: 08-11-2024 Patient encounter procedure [facility] Start: 08-11-2024 End: 08-11-2024 ambulatory HUSSEIN ORDONEZ [facility] Comment on above: Wound Care Start: 08-10-2024 End: 08-10-2024 Patient encounter procedure [facility] Start: 08-10-2024 End: 08-10-2024 ambulatory NORMA Francis COLLADODAVIES [facility] Comment on above: Wound Care Start: 08-09-2024 End: 08-10-2024 ambulatory HUSSEIN ORDONEZ [facility] Comment on above: Wound Care Start: 08-09-2024 End: 08-09-2024 Patient encounter procedure [facility] Start: 08-08-2024 End: 08-10-2024 ambulatory HUSSEIN ORDONEZ [facility] Comment on above: Wound Care Start: 08-08-2024 End: 08-08-2024 Patient encounter procedure [facility] Start: 08-05-2024 End: 08-05-2024 Patient encounter procedure [facility] Start: 08-05-2024 End: 08-05-2024 ambulatory HUSSEIN VASLAVINIA [facility] Comment on above: Wound Care Start: 08-04-2024 End: 08-04-2024 Patient encounter procedure [facility] Start: 08-04-2024 End: 08-04-2024 ambulatory HUSSEIN ORDONEZ [facility] Comment on above: Wound Care Start: 08-03-2024 End: 08-04-2024 ambulatory HUSSEIN ORDONEZ [facility] Comment on above: Wound Care Start: 08-03-2024 End: 08-03-2024 Patient encounter procedure [facility] Start: 08-02-2024 End: 08-02-2024 Subsequent hospital visit by physician Xr [facility] Radiology Comment on above: Right hand pain [M79 .641] Start: 08-02-2024 End: 08-02-2024 ambulatory NATAN ALCAZAR Facility:[facility] Start: 08-02-2024 End: 08-02-2024 Patient encounter procedure Natan Thorntonzala Alcazar DO Work Phone: Orthopaedics Comment on above: 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); Right hand pain Start: 08-01-2024 End: 08-01-2024 Patient encounter procedure [facility] Start: 08-01-2024 End: 08-01-2024 ambulatory HUSSEIN ORDONEZ [facility] Comment on above: Wound Care Start: 07-29-2024 End: 08-01-2024 ambulatory HUSSEIN ORDONEZ [facility] Comment on above: Wound Care Start: 07-29-2024 End: 07-29-2024 Patient encounter procedure Hyperbaric Yhman [facility] Start: 07-28-2024 End: 07-28-2024 Patient encounter procedure [facility] Start: 07-28-2024 End: 07-28-2024 ambulatory HUSSEIN ORDONEZ [facility] Comment on above: Wound Care Start: 07-27-2024 End: 07-28-2024 ambulatory HUSSEIN ORDONEZ [facility] Comment on above: Wound Care Start: 07-27-2024 End: 07-27-2024 Patient encounter procedure [facility] Start: 07-26-2024 End: 07-26-2024 Patient encounter procedure [facility] Start: 07-26-2024 End: 07-26-2024 ambulatory HUSSEIN ORDONEZ [facility] Comment on above: Wound Care Start: 07-25-2024 End: 07-25-2024 Patient encounter procedure [facility] Start: 07-25-2024 End: 07-25-2024 ambulatory HUSSEIN ORDONEZ [facility] Comment on above: Wound Care Start: 07-22-2024 End: 07-22-2024 Patient encounter procedure [facility] Start: 07-22-2024 End: 07-22-2024 ambulatory HUSSEIN ORDONEZ [facility] Comment on above: Wound Care Start: 07-21-2024 End: 07-22-2024 ambulatory HUSSEIN ORDONEZ [facility] Comment on above: Wound Care Start: 07-21-2024 End: 07-21-2024 Patient encounter procedure [facility] Start: 07-20-2024 End: 07-20-2024 Patient encounter procedure [facility] Start: 07-20-2024 End: 07-20-2024 ambulatory HUSSEIN ORDONEZ [facility] Comment on above: Wound Care Start: 07-19-2024 End: 07-20-2024 ambulatory HUSSEIN ORDONEZ [facility] Comment on above: Wound Care Start: 07-19-2024 End: 07-19-2024 Patient encounter procedure [facility] Start: 07-18-2024 End: 07-19-2024 ambulatory HUSSEIN ORDONEZ [facility] Comment on above: Wound Care Start: 07-18-2024 End: 07-18-2024 Patient encounter procedure [facility] Start: 07-15-2024 End: 07-15-2024 Patient encounter procedure [facility] Start: 07-15-2024 End: 07-15-2024 ambulatory HUSSEIN ORDONEZ [facility] Comment on above: Wound Care Start: 07-14-2024 End: 07-14-2024 Patient encounter procedure [facility] Start: 07-14-2024 End: 07-15-2024 ambulatory Lee Wayne MD Work Phone: Orthopaedics Comment on above: Hand/wrist injection Wound Care Start: 07-13-2024 End: 07-13-2024 Patient encounter procedure [facility] Start: 07-13-2024 End: 07-13-2024 ambulatory HUSSEIN ORDONEZ [facility] Comment on above: Wound Care Start: 07-12-2024 End: 07-12-2024 Patient encounter procedure [facility] Start: 07-12-2024 End: 07-12-2024 ambulatory HUSSEIN ORDONEZ [facility] Comment on above: Wound Care Start: 07-11-2024 End: 07-11-2024 Patient encounter procedure [facility] Start: 07-11-2024 End: 07-11-2024 ambulatory HUSSEIN ORDONEZ [facility] Comment on above: Wound Care Start: 07-07-2024 End: 07-07-2024 Telephone encounter Lee Wayne MD Work Phone: Orthopaedics Comment on above: Patient Question Start: 07-06-2024 End: 07-06-2024 Telephone encounter Seda OTTO Work Phone: Hematology/Oncology Start: 07-05-2024 End: 07-05-2024 ambulatory NORMA DAVIES Facility:[facility] Start: 07-05-2024 End: 07-05-2024 Patient encounter procedure Lee Wayne MD Work Phone: Orthopaedics Comment on above: 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) Start: 06-24-2024 End: 06-24-2024 ambulatory HUSSEIN ORDONEZ Facility:[facility] Start: 06-24-2024 End: 06-24-2024 Office outpatient visit 10 minutes Hussein Ordonez MD Work Phone: Radiation Oncology Comment on above: Radiation proctitis (Primary Dx); Radiation cystitis; Radiation injury of bowel, sequela Start: 06-06-2024 End: 06-06-2024 ambulatory HUSSEIN ORDONEZ Facility:[facility] Start: 05-24-2024 End: 05-24-2024 ambulatory NORMA DAVIES Facility:[facility] Start: 05-24-2024 End: 05-24-2024 Patient encounter procedure Lee Wayne MD Work Phone: Orthopaedics Comment on above: Carpal tunnel syndro me on left (Primary Dx) Start: 04-28-2024 Refill Hussein Ordonez MD Work Phone: Radiation Oncology Comment on above: Refill Request Start: 04-26-2024 End: 04-26-2024 ambulatory AFSANEH HAYES Facility:[facility] Start: 04-26-2024 End: 04-26-2024 Patient encounter procedure Afsaneh RAMOS-C Work Phone: Orthopaedics Comment on above: Carpal tunnel syndro me on left (Primary Dx) Start: 03-29-2024 Telephone encounter Lee covington MD Work Phone: Orthopaedics Comment on above: Schedule Surgery Start: 03-29-2024 End: 03-29-2024 Patient encounter procedure Lee Wayne MD Work Phone: Orthopaedics Comment on above: Carpal tunnel syndro me of left wrist (Primary Dx) Start: 03-29-2024 End: 03-29-2024 Subsequent hospital visit by physician [facility] Work Phone: Radiology Comment on above: Pain [R52] Start: 03-20-2024 Orders Only Patria Horton ulises CORRALES Work Phone: Appointment Center Comment on above: Pain (Primary Dx) Start: 03-02-2024 End: 03-02-2024 Subsequent hospital visit by physician [facility] Comment on above: Pain in thoracic spi ne [M54.6] Start: 02-19-2024 End: 02-19-[address] 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 Rej Work Phone: Radiology Comment on above: Pain in joint, multi ple sites [M25.50] Start: 01-29-2024 End: 01-29-2024 ambulatory NORMA DAVIES Facility:[facility] Start: 01-29-2024 End: 01-29-2024 Patient encounter procedure [...] End: 07-20-2023 [facility] Comment on above: Prostate cancer (HCC [...] End: 04-10-2023 Subsequent hospital visit by physician [facility] Shayla Mathews Work Phone: Radiology Comment on above: Pain in left hip [M2 5.552] Start: 03-12-2023 End: 03-12-2023 ambulatory Patricia Mims APRN.CNP Work Phone: Hematology/Oncology Comment on above: Prostate cancer (HCC ) (Primary Dx); Encounter for monitoring Lupron therapy; Diarrhea, unspecified type; Hypercalcemia Start: 03-12-2023 End: 03-12-2023 Patient encounter procedure Patricia Julio Cesarelmer BARNEY Work Phone: [facility] Start: 03-06-2023 End: 03-06-2023 ambulatory [facility] Work Phone: Start: 03-06-2023 End: 03-06-2023 Patient encounter procedure [facility]Laboratory, Specimen Start: 03-04-2023 Refill Hussein Ordonez MD Work Phone: Radiation Oncology Comment on above: Refill Request Start: 02-05-2023 End: 02-05-2023 Patient encounter procedure Afsaneh Hayes PA-C Work Phone: Orthopaedics Comment on above: Thumb [...] encounter procedure Hussein Ordonez MD Work Phone: [facility] Start: 12-16-2022 Radiation Oncology Note Hussein Ordonez MD Work Phone: Radiation Oncology Comment on above: Completion Note Start: 12-10-2022 End: 12-10-2022 Patient encounter procedure Hussein Ordonez MD Work Phone: Radiation Oncology Comment on above: Prostate cancer (HCC ) (Primary Dx) Start: 12-09-2022 End: 12-09-2022 Patient encounter procedure Patricia Prasanna DREW.ROCKET TEST FIRE WORKER Work Phone: [facility] Start: 12-09-2022 End: 12-09-[address] [facility] Work Phone: Hematology/Oncology Comment on [...] encounter procedure Hussein Ordonez MD Work Phone: [facility] Start: 10-23-2022 Radiation Oncology Note Hussein [...] 09-12-2022 Subsequent hospital visit by physician Karla Rueda [facility] Work Phone: Radiology Comment on above: Pain [...] encounter procedure Rickie Agosto MD Work Phone: [facility] Comment on above: Prostate cancer (HCC ) (Primary Dx) Start: 08-07-2022 ambulatory HUSSEIN ORDONEZ Facility: [facility] Start: 08-07-2022 End: 08-07-2022 Subsequent hospital visit by physician [facility] Work Phone: RADIO PET [facility] Comment on above: Prostate cancer (HCC ) [C61] Start: 07-29-2022 End: 07-29-2022 ambulatory NORMA DAVIES Facility:[facility] Start: 07-29-2022 End: 07-29-2022 Patient encounter procedure Vazquez Ralphishnan DO Work Phone: [facility] Comment on above: Prostate cancer (HCC ) (Primary Dx); Benign prostatic hyperplasia with incomplete bladder emptying Start: 07-17-2022 ambulatory NORMA DAVIES Facil ity:[facility] Start: 07-14-2022 Refill Sorin rodriguez MD Work [...] Subsequent hospital visit by physician [facility] 1 Work Phone: Molecular Imaging Comment on above: Prostate cancer (HCC ) [C61] Start: 06-09-2022 End: 06-09-2022 Subsequent hospital visit by physician [facility] Radiology Comment on above: Prostate cancer (HCC ) [C61] Start: 06-09-2022 End: 06-09-2022 Subsequent hospital visit by physician [facility] Radiology Start: 05-21-2022 ambulatory Vazquez Faust n DO Work Phone: Urology Comment on above: Prostate Cancer for Sylvie Chiu Start: 05-19-2022 Telephone encounter Vazquez Carrizales saravanan DO Work Phone: Urology Comment on above: Results Start: 03-03-2022 End: 03-03-2022 Patient encounter procedure [facility], Specimen Start: 02-28-2022 Refill Brandttimesperanza ovalle DO Work Phone: Urology Comment on above: Refill Request Start: 12-24-2021 End: 12-24-2021 Patient encounter procedure James Barnes BULB [employer]TER.ROCKET TEST FIRE WORKER Work Phone: Orthopaedics Comment on above: 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 (Primary Dx) Start: 12-24-2021 End: 12-24-2021 Subsequent hospital visit by physician [facility] Shayla Mathews Work Phone: Radiology Comment on above: Pain [R52] Start: 08-15-2021 ambulatory NORMA DAVIES [facility] Procedures Date Procedure Procedure Detail Performing Clinician [...] hip unilateral with pelvis 2-3 views Selwyn TRAOREC Work Phone: Start: 02-05-2023 Radex hand minimum 3 views Afsaneh Veterrencevitz PA-C Work Phone: Start: 02-05-2023 Arthrocentesis aspir &/inj small jt/bursa w/o us Afsaneh Vetovitz PA-C Work Phone: Start: 02-05-2023 Radex hand minimum 3 views Afsaneh Vetovitz PA-C Work Phone: Start: 01-30-2023 Arthrocentesis aspir &/inj major jt/bursa w/o us Selwyn Leiva PA-C Work Phone: Start: 12-02-2022 Dup-scan xtr veins unilateral/limited study Hussein Ordoenz MD Work Phone: Start: 09-12-2022 Radex shoulder compl ete minimum 2 views Flynn Julian PA-C Work Phone: Start: 06-09-2022 Bone &/joint imaging whole body Vazquez Page DO Work Phone: Start: 12-24-2021 Arthrocentesis aspir &/inj major jt/bursa w/o us James Barnes APRN.DEBBIE Work Phone: Start: 12-24-2021 Radiologic exam knee complete 4/more views James Barnes APRN.DEBBIE Work Phone: Start: 04-29-2016 Adult depression scr eening assessment James Barnes BULB PLANTER.ROCKET TEST FIRE WORKER Work Phone: Start: 03-22-2010 Lipid 1996 panel - S olivia or Plasma Hussein Ordonez MD Work Phone: Plan of Treatment Date Care Activity Detail Author Start: 12-24-2026 Diabetes Screening Diabetes Screening [facility] Start: 09-25-2026 Diabetes Screening Diabetes Screening [facility] Start: 03-09-2026 DIABETES SCREEN DIABETES SCREEN [facility] Start: 03-09-2026 Diabetes Screening Diabetes Screening [facility] Start: 12-14-2025 [address] SCREEN [facility] Start: 06-26-2025 End: 06-26-2025 Patient encounter procedure Radiation Oncology Comment on above: 6 month follow up prostate Start: 06-23-2025 End: 06-23-2025 ambulatory 06/23/2025 7:15 AM EDT Results Only [facility] Draw Station [address] [place] [address] LAB [facility] Draw Station Comment on above: LAB Start: 05-29-[address] [facility] Start: 05-18-2025 End: 05-18-2025 Patient encounter procedure 05/18/2025 3:15 PM EDT OT/PT/Speech Visit [facility] [address] [place] [address] Asif Wharton, PT Pain to go away [facility] Comment on above: Pain to go away Start: 04-21-2025 End: 04-21-2025 Patient encounter procedure Radiology Comment on above: L hip & leg frontal Severe left hip pain Start: 03-03-2025 End: 03-03-2025 Patient encounter procedure Radiology Comment on above: L knee severe pain left kne e Lt Knee XR Start: 03-02-2025 End: 03-02-2025 Patient encounter procedure 03/02/2025 8:20 AM EDT Office Visit Orthopaedics [address] [place] [address] [place] [address] [place] [address] Left wrist injection Orthopaedics Comment on above: Left wrist injection Start: 12-27-2024 End: 12-27-2024 Patient encounter procedure 12/27/2024 9:00 AM EDT Office Visit Rheumatology [address] [place] [address] [place] [address] [place] [address] annual Rheumatology Comment on above: annual Start: 12-23-2024 End: 12-23-2024 Patient encounter procedure 12/23/2024 9:00 AM EDT Office Visit Radiation Oncology [address] [place] [address] [place] [address] [place] [address] 6 month follow up prostate Radiation Oncology Comment on above: 6 month follow up prostate Start: 12-19-2024 End: 12-19-2024 ambulatory 12/19/2024 8:00 AM EDT Results Only [facility] Draw Station [address] [place] [address] lab [facility] Draw Station Comment on above: lab Start: 12-13-2024 BP Controlled (<130/80) BP Controlled (<130/80) [facility] in Start: 10-04-2024 DIABETES SCREEN DIABETES SCREEN [facility] Start: 09-28-2024 Advance Directive Discussion Advance Directive Discussion [facility] Start: 09-28-2024 Medicare Advantage Annual Wellness Visit Medicare Advantage Annual Wellness Visit [facility] Start: 09-27-2024 End: 09-27-2024 ambulatory 09/27/2024 6:00 PM EST Procedure [facility] [address] [place] [address] Hyperbaric Therapy [facility] Comment on above: Hyperbaric Therapy Start: 09-26-2024 End: 09-26-2024 ambulatory 09/26/2024 6:00 PM EST Procedure [facility] [address] [place] [address] Hyperbaric Therapy [facility] Comment on above: Hyper[facility]ic Therapy Start: 09-23-2024 End: 09-23-2024 ambulatory 09/23/2024 6:00 PM EST Procedure [facility] [address] [place] [address] Hyperbaric Therapy [facility] Comment on above: [facility] Therapy Start: 09-22-2024 End: 09-22-2024 ambulatory 09/22/2024 6:00 PM EST Procedure [facility] [address] [place] [address] Hyperbaric Therapy [facility] Comment on above: [facility] Therapy Start: 09-20-2024 End: 09-20-2024 ambulatory 09/20/2024 6:00 PM EST Procedure [facility] [address] [place] [address] Hyperbaric Therapy [facility] Comment on above: Hyperbaric Therapy Start: 09-19-2024 End: 09-19-2024 ambulatory 09/19/2024 6:00 PM EST Procedure [facility] [address] [place] [address] Hyperbaric Therapy [facility] Comment on above: Hyperbaric Therapy Start: 09-16-2024 End: 09-16-2024 ambulatory 09/16/2024 6:00 PM EST Procedure [facility] [address] [place] [address] Hyperbar[facility] Therapy [facility] Comment on above: Hyperbaric Therapy Start: 09-15-2024 End: 09-15-2024 ambulatory 09/15/2024 6:00 PM EST Procedure [facility] [address] [place] [address] Hyperbar[facility] Therapy [facility] Comment on above: Hyperbaric Therapy Start: 09-14-2024 End: 09-14-2024 ambulatory 09/14/2024 6:00 PM EST Procedure [facility] [address] [place] [address] Hyper[facility] Therapy [facility] Comment on above: [facility] Therapy Start: 09-13-2024 End: 09-13-2024 ambulatory 09/13/2024 6:00 PM EST Procedure [facility] [address] [place] [address] Hyperbar[facility] Therapy [facility] Comment on above: Hyper[facility]ic Therapy Start: 09-12-2024 End: 09-12-2024 ambulatory 09/12/2024 6:00 PM EST Procedure [facility] [address] [place] [address] Hyperbar[facility] Therapy [facility] Comment on above: Hyper[facility]ic Therapy Start: 09-12-2024 End: 09-12-2024 Patient encounter procedure 09/12/2024 8:00 AM EST Office Visit Rheumatology [address] [place] [address] Francisco Davis, BULB PLANTER.ROCKET TEST FIRE WORKER [address] [place] [address] FOLLOW UP Rheumatology Comment on above: FOLLOW UP Start: 09-09-2024 End: 09-09-2024 ambulatory 09/09/2024 6:00 PM EST Procedure [facility] [address] [place] [address] Hyperbar[facility] Therapy [facility] Comment on above: [facility]ic Therapy Start: 09-08-2024 End: 09-08-2024 ambulatory 09/08/2024 6:00 PM EST Procedure [facility] [address] [place] [address] [facility] Therapy [facility] Comment on above: Hyper[facility]ic Therapy Start: 09-07-2024 End: 09-07-2024 ambulatory 09/07/2024 6:00 PM EST Procedure [facility] [address] [place] [address] Hyperbaric Therapy [facility] Comment on above: Hyper[facility]ic Therapy Start: 09-06-2024 End: 09-06-2024 ambulatory 09/06/2024 6:00 PM EST Procedure [facility] [address] [place] [address] Hyperbar[facility] Therapy [facility] Comment on above: Hyper[facility]ic Therapy Start: 09-05-2024 End: 09-05-2024 ambulatory 09/05/2024 6:00 PM EST Procedure [facility] [address] [place] [address] Hyperbaric Therapy [facility] Comment on above: Hyper[facility]ic Therapy Start: 09-02-2024 End: 09-02-2024 ambulatory 09/02/2024 6:00 PM EST Procedure [facility] [address] [place] [address] Hyper[facility] Therapy [facility] Comment on above: [facility]ic Therapy Start: 09-01-2024 End: 09-01-2024 ambulatory 09/01/2024 6:00 PM EST Procedure [facility] [address] [place] [address] Hyperbar[facility] Therapy [facility] Comment on above: [facility] Therapy Start: 08-31-2024 End: 08-31-2024 ambulatory 08/31/2024 6:00 PM EST Procedure [facility] [address] [place] [address] [facility] Therapy [facility] Comment on above: [facility] Therapy Start: 08-30-2024 End: 08-30-2024 ambulatory 08/30/2024 6:00 PM EST Procedure [facility] [address] [place] [address] Hyper[facility] Therapy [facility] Comment on above: Hyperbaric Therapy Start: 08-29-2024 End: 08-29-2024 ambulatory 08/29/2024 6:00 PM EST Procedure [facility] [address] [place] [address] [facility] Therapy [facility] Comment on above: Hyperbaric Therapy Start: 08-26-2024 End: 08-26-2024 ambulatory 08/26/2024 6:00 PM EST Procedure [facility] [address] [place] [address] Hyperbaric Therapy [facility] Comment on above: Hyperbaric Therapy Start: 08-24-2024 End: 08-24-2024 ambulatory 08/24/2024 6:00 PM EST Procedure [facility] [address] [place] [address] Hyperbaric Therapy [facility] Comment on above: Hyper[facility]ic Therapy Start: 08-23-2024 End: 08-23-2024 ambulatory 08/23/2024 6:00 PM EST Procedure [facility] [address] [place] [address] [facility] Therapy [facility] Comment on above: [facility]ic Therapy Start: 08-22-2024 End: 08-22-2024 ambulatory 08/22/2024 6:00 PM EST Procedure [facility] [address] [place] [address] [facility] Comment on above: [facility] Therapy Start: 08-21-2024 End: 11-20-2024 Prostate specific Ag [Mass/volume] in Serum or Plasma PROSTATE-SPECIFIC ANTIGEN DIAGNOSTIC Lab Routine History of prostate cancer Expected: 08/21/2024 (Approximate), Expires: 11/20/2024 [facility] Work Phone: Comment on above: Expected: 08/21/2024 (Approximate), Expi res: 11/20/2024 Start: 08-19-2024 End: 08-19-2024 ambulatory 08/19/2024 6:00 PM EST Procedure [facility] [address] [place] [address] [facility] Therapy [facility] Comment on above: Hyperbaric Therapy Start: 08-18-2024 End: 08-18-2024 ambulatory 08/18/2024 6:00 PM EST Procedure [facility] [address] [place] [address] Hyperbaric Therapy [facility] Comment on above: Hyperbaric Therapy Start: 08-17-2024 End: 08-17-2024 ambulatory 08/17/2024 6:00 PM EST Procedure [facility] [address] [place] [address] [facility] Therapy [facility] Comment on above: Hyperbaric Therapy Start: 08-16-2024 End: 08-16-2024 ambulatory 08/16/2024 6:00 PM EST Procedure [facility] [address] [place] [address] [facility] Therapy [facility] Comment on above: Hyperbaric Therapy Start: 08-16-2024 End: 08-16-2024 Patient encounter procedure 08/16/2024 4:00 PM EST Office Visit Orthopaedics [address] [place] [address] [place] [address] [place] [address] right thumb injection, ok per MM Orthopaedics Comment on above: right thumb injection, ok per MM Start: 08-15-2024 End: 08-15-2024 ambulatory 08/15/2024 6:00 PM EST Procedure [facility] [address] [place] [address] [facility] Therapy [facility] Comment on above: Hyperbaric Therapy Start: 08-12-2024 End: 08-12-2024 ambulatory 08/12/2024 6:00 PM EST Procedure [facility] [address] [place] [address] [facility] Comment on above: Hyperbaric Therapy Start: 08-12-2024 End: 08-12-2024 Patient encounter procedure 08/12/2024 10:50 AM EST Office Visit Urology [address] [place] [address] Selwyn Michelle MD [address] [place] [address] Six month follow up with PSA prior Urology Comment on above: Six month follow up with PSA prior Start: 08-11-2024 End: 08-11-2024 ambulatory 08/11/2024 6:00 PM EST Procedure [facility] [address] [place] [address] [facility] Therapy [facility] Comment on above: Hyperbaric Therapy Start: 08-11-2024 End: 08-11-2024 Patient encounter procedure 08/11/2024 1:00 PM EST Office Visit Orthopaedics [address] [place] [address] Natan Alcazar, [address] [place] [address] Arthritis of carpometacarpal (CMC) joint of left thumb [M18.12] Orthopaedics Comment on above: Arthritis of carpometacarpal (CMC) joint of left thumb [M18.12] Start: 08-10-2024 End: 08-10-2024 ambulatory 08/10/2024 6:00 PM EST Procedure [facility] [address] [place] [address] Hyperbaric Therapy [facility] Comment on above: Hyperbaric Therapy Start: 08-09-2024 End: 08-09-2024 ambulatory 08/09/2024 6:00 PM EST Procedure [facility] [address] [place] [address] Hyperbaric Therapy [facility] Comment on above: Hyperbaric Therapy Start: 08-08-2024 End: 08-08-2024 ambulatory 08/08/2024 6:00 PM EST Procedure [facility] [address] [place] [address] Hyperbaric Therapy [facility] Comment on above: Hyperbaric Therapy Start: 08-05-2024 End: 08-05-2024 ambulatory 08/05/2024 6:00 PM EST Procedure [facility] [address] [place] [address] Hyperbaric Therapy [facility] Comment on above: Hyperbaric Therapy Start: 08-04-2024 End: 08-04-2024 ambulatory 08/04/2024 6:00 PM EST Procedure [facility] [address] [place] [address] [facility] Therapy [facility] Comment on above: Hyperbaric Therapy Start: 08-03-2024 End: 08-03-2024 ambulatory 08/03/2024 6:00 PM EST Procedure [facility] [address] [place] [address] [facility] Therapy [facility] Comment on above: Hyperbaric Therapy Start: 08-02-2024 End: 08-02-2024 ambulatory 08/02/2024 6:00 PM EST Procedure [facility] [address] [place] [address] [facility] Comment on above: Hyperbaric Therapy Start: 08-02-2024 End: 08-02-2024 Patient encounter procedure 08/02/2024 9:30 AM EST Office Visit Orthopaedics [address] [place] [address] Natan Alcazar, [address] [place] [address] Left Thumb CMC injection Orthopaedics Comment on above: Left Thumb CMC injection Start: 08-01-2024 End: 08-01-2024 ambulatory 08/01/2024 6:00 PM EST Procedure [facility] [address] [place] [address] [facility] Therapy [facility] Comment on above: Hyperbaric Therapy Start: 07-29-2024 End: 07-29-2024 ambulatory 07/29/2024 6:00 PM EDT Procedure [facility] [address] [place] [address] [facility] Therapy [facility] Comment on above: Hyperbaric Therapy Start: 07-28-2024 End: 07-28-2024 ambulatory 07/28/2024 6:00 PM EDT Procedure [facility] [address] [place] [address] Hyperbaric Therapy [facility] Comment on above: Hyperbaric Therapy Start: 07-27-2024 End: 07-27-2024 ambulatory 07/27/2024 6:00 PM EDT Procedure [facility] [address] [place] [address] Hyperbaric Therapy [facility] Comment on above: Hyperbaric Therapy Start: 07-26-2024 End: 07-26-2024 ambulatory 07/26/2024 6:00 PM EDT Procedure [facility] [address] [place] [address] [facility] Comment on above: Hyperbaric Therapy Start: 07-25-2024 End: 07-25-2024 ambulatory 07/25/2024 6:00 PM EDT Procedure [facility] [address] [place] [address] Hyperbaric Therapy [facility] Comment on above: Hyperbaric Therapy Start: 07-22-2024 End: 07-22-2024 ambulatory 07/22/2024 6:00 PM EDT Procedure [facility] [address] [place] [address] [facility] Comment on above: Hyperbaric Therapy Start: 07-21-2024 End: 07-21-2024 ambulatory 07/21/2024 6:00 PM EDT Procedure [facility] [address] [place] [address] Hyperbaric Therapy [facility] Comment on above: Hyperbaric Therapy Start: 07-20-2024 End: 07-20-2024 ambulatory 07/20/2024 6:00 PM EDT Procedure [facility] [address] [place] [address] Hyperbaric Therapy [facility] Comment on above: Hyperbaric Therapy Start: 07-19-2024 End: 07-19-2024 ambulatory 07/19/2024 6:00 PM EDT Procedure [facility] [address] [place] [address] Hyperbaric Therapy [facility] Comment on above: Hyperbaric Therapy Start: 07-18-2024 End: 07-18-2024 ambulatory 07/18/2024 6:00 PM EDT Procedure [facility] [address] [place] [address] [facility] Comment on above: Hyper[facility]ic Therapy Start: 07-15-2024 End: 07-15-2024 ambulatory 07/15/2024 6:00 PM EDT Procedure [facility] [address] [place] [address] [facility] Comment on above: Hyperbaric Therapy Start: 07-14-2024 End: 07-14-2024 ambulatory 07/14/2024 6:00 PM EDT Procedure [facility] [address] [place] [address] [facility] Comment on above: Hyperbaric Therapy Start: 07-05-2024 End: 07-05-2024 Patient encounter procedure 07/05/2024 10:45 AM EDT Office Visit Orthopaedics [address] [address] Lee Wayne MD [address] [place] [address] Post op checkup and cortisone injection left wrist/hand Orthopaedics Comment on above: Post op checkup and cortisone injection left wrist/hand Start: 06-27-2024 End: 06-27-2024 Patient encounter procedure 06/27/2024 8:00 AM EDT Office Visit Rheumatology [address] [place] [address] Francisco Davis APRN.ROCKET TEST FIRE WORKER [address] [place] [address] FOLLOW UP Rheumatology Comment on above: FOLLOW UP Start: 06-24-2024 End: 06-24-2024 Patient encounter procedure 06/24/2024 11:00 AM EDT Office Visit Radiation Oncology [address] [place] [address] [place] [address] [place] [address] 6 month follow up prostate Radiation Oncology Comment on above: 6 month follow up prostate Start: 06-17-2024 End: 06-17-2024 Patient encounter procedure 06/17/2024 9:00 AM EDT Office Visit Radiation Oncology [address] [place] [address] [place] [address] [place] [address] 6 month follow up prostate Radiation Oncology Comment on above: 6 month follow up prostate Start: 05-29-2024 Covid-19 Vaccine ( season) Covid-19 Vaccine ( season) [facility] Start: 05-29-2024 Covid-19 Vaccine ( season) Covid-19 Vaccine () [facility] Start: 05-29-[address] [facility] Start: 05-24-2024 End: 05-24-2024 Patient encounter procedure 05/24/2024 3:45 PM EDT Office Visit Orthopaedics [address] [address] Lee Wayne MD [address] [place] [address] post op left CTR Orthopaedics Comment on above: post op left CTR Start: 04-26-2024 End: 04-26-2024 Patient encounter procedure 04/26/2024 11:45 AM EDT Office Visit Orthopaedics [address] [address] Afsaneh Hayes PA-C [address] [place] [address] post op left CTR Orthopaedics Comment on above: post op left CTR Start: 04-15-2024 End: 04-15-2024 Admission to same day surgery center 04/15/2024 12:08 PM EDT - 04/15/2024 1:01 PM EDT Surgery [facility] Surgery [address] [place] [address] Lee Wayne MD [address] [place] [address] DECOMPRESSION NERVE MEDIAN CARPAL TUNNEL [facility] Surgery Comment on above: DECOMPRESSION NERVE MEDIAN CARPAL TUNNEL Start: 04-15-2024 End: 04-15-2024 Neuroplasty &/transpos median nrv carpal tunne DECOMPRESSION NERVE MEDIAN CARPAL TUNNEL Carpal tunnel syndrome on left 04/15/2024 12:08 PM EDT ME OR Start: 04-15-2024 Subsequent hospital visit by physician 04/15/2024 12:08 PM EDT Hospital Encounter [facility] Surgery [address] [place] [address] Lee Wayne MD [address] [place] [address] Carpal tunnel syndrome on left [G56.02] [facility] Surgery Comment on above: Carpal tunnel syndrome on left [G56.02] Start: 04-01-2024 End: 04-01-2024 Patient encounter procedure Radiology Comment on above: XR WRIST GENERAL 3V PA/LAT/OBL LEFT left wrist/hand pain , xrays scheduled Start: 03-12-2024 BP CONTROLLED (<130/80) BP CONTROLLED (<130/80) [facility] in Start: 02-19-2024 End: 02-19-2024 Patient encounter procedure Urology Comment on above: Cystoscopy Cystoscopy - LM for patient to arrive at 1430 & instructions given Start: 02-18-2024 End: 02-18-2024 Patient encounter procedure 02/18/2024 9:00 AM EDT Office Visit Rheumatology [address] [place] [address] Francisco Davis, RAJENDRA.ROCKET TEST FIRE WORKER [address] [place] [address] Pain in joint, multiple sites to discuss other meds besides PLQ Rheumatology Comment on above: Pain in joint, multiple sites to discuss other meds besides PLQ Start: 02-01-2024 End: 02-01-2024 Patient encounter procedure 02/01/2024 9:15 AM EDT Appointment Radiology [address] [place] [address] US HAND/WRIST SYNOVIAL SCREEN RT+LT. Radiology Comment on above: US HAND/WRIST SYNOVIAL SCREEN RT+LT. Start: 01-12-2024 End: 04-12-2024 Bacteria identified in Urine by Culture [facility] Work Phone: Comment on above: Expected: 01/12/2024, Expires: 4 Start: 12-14-2023 End: 03-14-2024 C reactive protein [Mass/volume] in Serum or Plasma [facility] Work Phone: Comment on above: Expected: 12/14/2023, Expires: 4 Start: 12-14-2023 End: 03-14-2024 Cyclic citrullinated peptide IgG Ab [Units/volume] in Serum or Plasma [facility] Work Phone: Comment on above: Expected: 12/14/2023, Expires: 4 Start: 12-14-2023 End: 03-14-2024 Rheumatoid factor [Units/volume] in Serum or Plasma [facility] Work Phone: Comment on above: Expected: 12/14/2023, Expires: 4 Start: 09-28-2023 Advance Directive Discussion Advance Directive Discussion [facility] Start: 09-28-2023 Behavioral Health Screening Behavioral Health Screening [facility] Start: 09-28-2023 Depression Assessment Depression Assessment [facility] Start: 07-29-2023 BP CONTROLLED (<130/80) BP CONTROLLED (<130/80) [facility] inic Start: 05-29-2023 Covid-19 Vaccine ( season) Covid-19 Vaccine () [facility] Start: 05-29-[address] [facility] Start: 03-11-2023 End: 05-11-2023 CBC W Auto Differential panel - Blood CBC + DIFF Lab Routine Prostate cancer (HCC) Expected: 03/11/2023, Expires: 05/11/2023 [facility] Work Phone: Comment on above: Expected: 03/11/2023, Expires: 3 Start: 03-11-2023 End: 05-11-2023 Comprehensive metabolic 2000 panel - Serum or Plasma COMP METABOLIC PANEL Lab Routine Prostate cancer ([facility]) Expected: 03/11/2023, Expires: 05/11/2023 [facility] Work Phone: Comment on above: Expected: 03/11/2023, Expires: 3 Start: 11-14-2022 End: 01-14-2023 Testosterone [Mass/volume] in Serum or Plasma TESTOSTERONE TOTAL Lab Routine Prostate cancer ([facility]) Expected: 11/14/2022, Expires: 01/14/2023 [facility] Work Phone: Comment on above: Expected: 11/14/2022, Expires: 3 Start: 09-28-2022 ADVANCE DIRECTIVE DISCUSSION ADVANCE DIRECTIVE DISCUSSION [facility] Start: 09-28-2022 DEPRESSION ASSESSMENT DEPRESSION ASSESSMENT [facility] Start: 05-29-[address] [facility] Start: 05-19-2022 End: 07-19-2022 CREATININE BLD CREATININE BLD Lab Routine Prostate cancer ([facility]) Expected: 05/19/2022, Expires: 07/19/2022 [facility] Work Phone: Comment on above: Expected: 05/19/2022, Expires: 2 Start: 09-28-2021 ADVANCE DIRECTIVE DISCUSSION ADVANCE DIRECTIVE DISCUSSION [facility] Start: 09-28-2021 DEPRESSION ASSESSMENT DEPRESSION ASSESSMENT [facility] Start: 05-29-2021 Influenza vaccination INFLUENZA (#1) [facility] Start: 04-29-2017 Adult depression screening assessment DEPRESSION SCREENING [facility] Start: 2017 Pneumococcal Vaccine: 65+ (2 - PCV) Pneumococcal Vaccine: 65+ (2 - PCV) [facility] Start: 2017 Pneumococcal Vaccine: 65+ (2 of 2 - PCV) Pneumococcal Vaccine: 65+ (2 of 2 - PCV) [facility] Start: 2017 PNEUMOCOCCAL: 65+ (1 - PCV) PNEUMOCOCCAL: 65+ (1 - PCV) [facility] Start: 2017 PNEUMOCOCCAL: 65+ (2 - PCV) PNEUMOCOCCAL: 65+ (2 - PCV) [facility] Start: 2017 PNEUMOVAX AGE 65 AND OVER WITH 5YR LOOKBACK (#1) PNEUMOVAX AGE 65 AND OVER WITH 5YR LOOKBACK (#1) [facility] Start: 03-22-2015 Lipid 1996 panel - Serum or Plasma Lipid Screening [facility] Start: 03-22-2015 Lipid panel Lipid Screening [facility] Start: 03-22-[address] SCREEN [facility] Start: 2012 RSV Vaccine (1 - 1-dose 60+ series) RSV Vaccine (1 - 1-dose 60+ series) [facility] Start: 2012 RSV Vaccine (1 - Risk 60-74 years 1-dose series) RSV Vaccine (1 - Risk 60-74 years 1-dose series) [facility] Start: 11-17-2007 Pneumococcal Vaccine: 50+ (2 of 2 - PCV) Pneumococcal Vaccine: 50+ (2 of 2 - PCV) [facility] Start: 11-17-2007 PNEUMOCOCCAL: 65+ (2 - PCV) PNEUMOCOCCAL: 65+ (2 - PCV) [facility] Start: 10-04-[address] [facility] Start: 2002 SHINGRIX VACCINE (1 of 2) SHINGRIX VACCINE (1 of 2) [facility] Start: 1997 COLOGUARD (FIT-DNA) COLOGUARD (FIT-DNA) [facility] Start: [address] [facility] Start: 1997 COLORECTAL CANCER SCREENING COLORECTAL CANCER SCREENING [facility] Start: [address] [facility] Start: 1997 FECAL OCCULT BLOOD FECAL OCCULT BLOOD [facility] Start: 1997 Screening for malignant neoplasm of colon [facility] Start: [address] [facility] Start: 1970 ANNUAL PCP TEAM CHRONIC DISEASE VISIT ANNUAL PCP TEAM CHRONIC DISEASE VISIT [facility] Start: 1970 Anxiety Screening Anxiety Screening [facility] Start: 1970 BP CONTROLLED (<130/80) BP CONTROLLED (<130/80) [facility] Start: 1970 Depression Screening Depression Screening [facility] Start: 1970 HEPATITIS C SCREENING HEPATITIS C SCREENING [facility] Start: 1970 Hepatitis C screening Hepatitis C Screening [facility] Start: 1957 COVID-19 VACCINE (#1) COVID-19 VACCINE (#1) [facility] Start: 1957 COVID-19 VACCINE (1) COVID-19 VACCINE (1) [facility] Start: 1952 COVID-19 VACCINE (#1) COVID-19 VACCINE (#1) [facility] Start: 1952 ABDOMINAL AORTIC ANEURYSM SCREENING ABDOMINAL AORTIC ANEURYSM SCREENING [facility] Start: 1952 Abdominal aortic aneurysm screening Abdominal Aortic Aneurysm Screening [facility] End: 06-18-2023 Bone &/joint imaging whole body NM BONE WHOLE BODY Radiology Routine Prostate cancer (HCC) 1 Occurrences starting 05/19/2022 until 06/18/2023 [facility] Work Phone: Comment on above: 1 Occurrences starting 05/19/2022 until 06/18/2023 Clostridioides diffi cile toxin genes [Presence] in Stool by JENNYFER with probe detection C. DIFFICILE PCR Lab Routine Diarrhea, unspecified type Ordered: 03/12/2023 [facility] Work Phone: Comment on above: Ordered: 03/12/2023 End: 06-18-2023 Ct pelvis w/contrast material CT PELVIS W IVCON Radiology Routine Prostate cancer (HCC) 1 Occurrences starting 05/19/2022 until 06/18/2023 [facility] Work Phone: Comment on above: 1 Occurrences starting 05/19/2022 until 06/18/2023 Hemoglobin.gastroint michael nal.lower [Presence] in Stool by Immunoassay FECAL OCCULT BLOOD TEST Lab Routine Diarrhea, unspecified type Ordered: 03/12/2023 [facility] Work Phone: Comment on above: Ordered: 03/12/2023 End: 01-15-2025 MR Pelvis WO and W contrast IV MRI PELVIS WO/W IVCON Radiology Routine Bladder neck obstruction 1 Occurrences starting 12/17/2023 until 01/15/2025 [facility] Work Phone: Comment on above: 1 Occurrences starting 12/17/2023 until 01/15/2025 End: 10-12-2023 Mri any jt upper extremity w/o contrast matrl MRI SHOULDER WO IVCON RT Radiology Routine Dysfunction of right rotator cuff 1 Occurrences starting 09/12/2022 until 10/12/2023 [facility] Work Phone: Comment on above: 1 Occurrences starting 09/12/2022 until 10/12/2023 End: 07-19-2023 Mri pelvis w/o & w/contrast material MRI PROSTATE WO/W IVCON Radiology Routine Prostate cancer (HCC) 1 Occurrences starting 06/19/2022 until 07/19/2023 [facility] Work Phone: Comment on above: 1 Occurrences starting 06/19/2022 until 07/19/2023 End: 11-14-2023 Prostate specific Ag [Mass/volume] in Serum or Plasma PSA/PROSTSPECAG DIAG Lab Routine Prostate cancer (HCC) Every 6 months for 20 Occurrences starting 11/14/2022 until 11/14/2023 [facility] Work Phone: Comment on above: Every 6 months for 20 Occurrences starti ng 11/14/2022 until 11/14/2023 End: 01-13-2024 Prostate specific Ag [Mass/volume] in Serum or Plasma PSA/PROSTSPECAG DIAG Lab Routine Prostate cancer (HCC) Every 6 months for 20 Occurrences starting 01/12/2023 until 01/13/2024 [facility] Work Phone: Comment on above: Every 6 months for 20 Occurrences starti ng 01/12/2023 until 01/13/2024 End: 06-16-2024 Prostate specific Ag [Mass/volume] in Serum or Plasma PSA/PROSTSPECAG DIAG Lab Routine Encounter for follow-up surveillance of prostate cancer Every 6 months for 20 Occurrences starting 06/16/2023 until 06/16/2024 [facility] Work Phone: Comment on above: Every 6 months for 20 Occurrences starti ng 06/16/2023 until 06/16/2024 End: 12-16-2024 Prostate specific Ag [Mass/volume] in Serum or Plasma PSA/PROSTSPECAG DIAG Lab Routine Prostate cancer (HCC) Bladder neck obstruction Every 6 months for 20 Occurrences starting 12/17/2023 until 12/16/2024 [facility] Work Phone: Comment on above: Every 6 months for 20 Occurrences starti ng 12/17/2023 until 12/16/2024 End: 12-19-2025 Prostate specific Ag [Mass/volume] in Serum or Plasma PROSTATE-SPECIFIC ANTIGEN DIAGNOSTIC Lab Routine Encounter for follow-up surveillance of prostate cancer Every 6 months for 20 Occurrences starting 12/19/2024 until 12/19/2025 [facility] Work Phone: Comment on above: Every 6 months for 20 Occurrences starti ng 12/19/2024 until 12/19/2025 Prostate specific Ag [Mass/volume] in Serum or Plasma PROSTATE-SPECIFIC ANTIGEN DIAGNOSTIC Lab Routine Encounter for follow-up surveillance of prostate cancer 12/19/2024 9:[address] [facility] End: 12-23-2025 Prostate specific Ag [Mass/volume] in Serum or Plasma PROSTATE-SPECIFIC ANTIGEN DIAGNOSTIC Lab Routine Encounter for follow-up surveillance of prostate cancer Every 6 months for 20 Occurrences starting 12/23/2024 until 12/23/2025 [facility] Work Phone: Comment on above: Every 6 months for 20 Occurrences starti ng 12/23/2024 until 12/23/2025 End: 01-13-2025 US Upper extremity - left US HAND/WRIST SYNOVIAL SCREEN LEFT Radiology Routine Pain in joint, multiple sites 1 Occurrences starting 12/14/2023 until 01/13/2025 [facility] Work Phone: Comment on above: 1 Occurrences starting 12/14/2023 until 01/13/2025 End: 01-13-2025 US Upper extremity - right US HAND/WRIST SYNOVIAL SCREEN RIGHT Radiology Routine Pain in joint, multiple sites 1 Occurrences starting 12/14/2023 until 01/13/2025 [facility] Work Phone: Comment on above: 1 Occurrences starting 12/14/2023 until 01/13/2025 End: 09-01-2025 XR Hand - right PA and Lateral and Oblique XR HAND GENERAL 3V PA/LAT/OBL RIGHT Radiology Routine Right hand pain 1 Occurrences starting 08/02/2024 until 09/01/2025 [facility] Work Phone: Comment on above: 1 Occurrences starting 08/02/2024 until 09/01/2025 XR Hand - right PA a nd Lateral and Oblique XR HAND GENERAL 3V PA/LAT/OBL RIGHT Radiology Routine Right hand pain 08/02/2024 10:10 AM [facility] End: 02-22-2024 XR HAND GENERAL 3V PA/LAT/OBL LEFT XR HAND GENERAL 3V PA/LAT/OBL LEFT Radiology Routine Left hand pain 1 Occurrences starting 01/23/2023 until 02/22/2024 [facility] Work Phone: Comment on above: 1 Occurrences starting 01/23/2023 until 02/22/2024 XR Knee - left 4 Views XR KNEE G ENERAL 4V AP BOTH/PA BOTH/LAT/MERC LEFT Radiology Routine Left knee pain, unspecified chronicity 03/03/2025 8:09 AM EDT [facility] Work Phone: End: 03-29-2026 XR Knee - left 4 Views XR KNEE GENERAL 4V AP BOTH/PA BOTH/LAT/MERC LEFT Radiology Routine Left knee pain, unspecified chronicity 1 Occurrences starting 02/27/2025 until 03/29/2026 [facility] Work Phone: Comment on above: 1 Occurrences starting 02/27/2025 until 03/29/2026 End: 05-18-2026 XR Lower extremity - bilateral AP W standing XR LEG FRONTAL HIP TO ANKLE MECHANICAL AXIS Radiology Routine Left hip pain 1 Occurrences starting 04/18/2025 until 05/18/2026 [facility] Work Phone: Comment on above: 1 Occurrences starting 04/18/2025 until 05/18/2026 XR Lower extremity - bilateral AP W standing XR LEG FRONTAL HIP TO ANKLE MECHANICAL AXIS Radiology Routine Left hip pain 04/21/2025 9:30 AM EDT [facility] Work Phone: End: 05-18-2026 XR Pelvis and Hip - left AP and Lateral frog XR HIP GENERAL 3V PELV/AP/LAT LEFT Radiology Routine Left hip pain 1 Occurrences starting 04/18/2025 until 05/18/2026 [facility] Comment on above: 1 Occurrences starting 04/18/2025 until 05/18/2026 XR Pelvis and Hip - left AP and Lateral frog XR HIP GENERAL 3V PELV/AP/LAT LEFT Radiology Routine Left hip pain 04/21/2025 9:[address] [facility] End: 04-19-2025 XR Wrist - left PA and Lateral and Oblique XR WRIST GENERAL 3V PA/LAT/OBL LEFT Radiology Routine Pain 1 Occurrences starting 03/20/2024 until 04/19/2025 [facility] Work Phone: Comment on above: 1 Occurrences starting 03/20/2024 until 04/19/2025 [facility] Immunizations Immunization Date Immunization Notes Care Provider Shira avera [facility] 06-30-2018 influenza, high dose seasonal, preservative-free James Barnes APRN.ROCKET TEST FIRE WORKER Work Phone: [facility] 06-30-2018 influenza virus vacc ine, unspecified formulation Hussein Ordonez MD Work Phone: [facility] 06-14-2009 influenza virus vacc ine, unspecified formulation James Barnes APRN.ROCKET TEST FIRE WORKER Work Phone: [facility] 11-17-2006 influenza virus vacc ine, unspecified formulation James Barnes BULB PLANTER.ROCKET TEST FIRE WORKER Work Phone: [facility] 11-17-2006 pneumococcal polysaccharide vaccine, 23 valent James Barnes BULB PLANTER.ROCKET TEST FIRE WORKER Work Phone: [facility] 10-03-2006 tetanus and diphther ia toxoids, not adsorbed, for adult use James Barnes BULB PLANTER.ROCKET TEST FIRE WORKER Work Phone: [facility] Payers Date Payer Category Payer Self-pay [id number] 2024 Medicare (Managed Care) HU[employer]NA M EDICARE [id number] 2012 Medicare HUMANA MEDICARE HUMANA MEDICARE PP [id number] 2012-Present [phone] [id number] 2012 Medicare [id number] 2012 Private Health Insurance [id number] Medicare [id number] Unknown [id number] Social History Date Type Detail Facility Start: 05-08-2022 End: 08-02-2024 Tobacco smoking status NHIS Ex-smoker [facility] Work Phone: History of tobacco use Cigarette Smoker C [facility] Start: 11-21-2021 End: 04-21-2025 Alcohol intake Current drinker of alcohol (finding) [facility] Start: 11-14-2015 End: 05-08-2022 Tobacco Comment quit over [address] [facility] Start: 1950 Sex Assigned At Male C [facility] Start: 12-14-2021 End: 08-11-2022 Exposure to SARS-CoV-2 (event) Not sure [facility] Start: 02-26-2021 Tobacco smoking stat us MNIS Unknown if ever smoked [facility] History of tobacco use Current smoker [facility] Start: 05-08-2022 End: 01-30-2023 Cigarettes smoked current (pack per day) - Reported 1 [facility] Start: 05-08-2022 End: 08-02-2024 Tobacco use and exposure Smokeless tobacco non-user [facility] Start: 01-30-2023 End: 04-10-[address] [facility] Adult Depression Screening Assessment 2 [facility] Start: 11-25-2021 Gender identity Identifies as male gender (finding) [facility] Start: 11-25-2021 Sexual orientation Heterosexual (fin ding) [facility] Start: 02-26-2021 [facility] Medical Equipment Procedure Code Equipment Code Equipment Origin al Text Equipment Identifier Dates Cement Simplex P Bone Radiopaque Full Dose Sterile - [id number] Start: 06-30-2018 Comment on above: Description: Kailash Simplex P Bone Cement Full Dose Component Triathlon 40mm X3 11mm Patellar Asymmetric Knee - [id number] Start: 06-30-2018 Comment on above: Description: [employer] Triathlon X3 Asymmetric Patella, A40, 11mm Insert Triathlon 7 X3 9mm Tibial Cruciate Retaining Knee - [id number] Start: 06-30-2018 Comment on above: Description: [employer] Triathlon X3 Tibial Bearing Insert-CR, 7, 9mm Component Triathlon 7 Femoral Cruciate Retain Cemented Knee Right - [id number] Start: 06-30-2018 Comment on above: Description: Kailash Triathlon Cruciate Retaining Femoral, #7, RT, CR Baseplate Triathlon 7 Tibial Primary Cement Knee - [id number] Start: 06-30-2018 Comment on above: Description: [employer] Triathlon Primary Tibial Baseplate, #7 Functional Status Date Assessment Result Facility 07-01-2018 Are you deaf, or do you have serious difficulty hearing No 07/01/2018 3:22 PM EDT Donya Davis RN No [facility] 07-01-2018 Are you blind, or do you have serious difficulty seeing, even when wearing glasses No 07/01/2018 3:22 PM EDT Donya Davis RN No [facility] 07-01-2018 Do you have serious difficulty walking or climbing stairs No 07/01/2018 3:22 PM EDT Donya Davis RN [facility] 07-01-2018 Do you have difficul ty dressing or bathing No 07/01/2018 3:22 PM EDT Donya Davis RN [facility] 07-01-2018 Because of a physica l, mental, or emotional condition, do you have difficulty doing errands alone such as visiting a physician's office or shopping No 07/01/2018 3:22 PM EDDonya Cruz RN [facility] Mental Status Date Assessment Result Facility 07-01-2018 Because of a physica l, mental, or emotional condition, do you have serious difficulty concentrating, remembering, or making decisions No 07/01/2018 3:22 PM EDT Donya Davis RN [facility] Clinical Notes 06-08-2018 to 05-03-2025 Mayra Buenrostro PA-C - 04/21/2025 10:00 AM Caitlin Horton RT(Eyal) - 04/21/2025 9:00 AM EDT Note Date & Type Note Facility 05-03-2025 Note HNO ID: [id number] Author: ASIF WHARTON PT Service: ? Author Type: Physical Therapist Type: Progress Notes Filed: 05/03/2025 13:45 Note Text: Episode Visit Count: 1 Therapist That Will Accept/Oversee The Plan Of Care: Asifyamile Jaimesau Start of Care Date: 05/03/25 Onset Date: 03/29/25 (Since early in March) Plan of Care Certification Date: 05/03/25 Next Certification Due Date: 08/01/25 Patient Identified by Name and Date of : Yes REHABILITATION AND SPORTS THERAPY PHYSICAL THERAPY EVALUATION PLAN OF CARE: Assessment: Sylvie Chiu presents with chief complaint of L posterior hip/buttock pain with pain and paresthesias of the L lateral thigh, medel, and foot that interferes with sleep, lay on back, lay on his L side, rolling in bed, sitting, standing, and remodeling his home... The patient presents with impairments in ADL's, balance, flexibility, gait, independence in exercise, overall function, patient reported outcome measures, posture, range of motion, sensation, and strength. PROMIS? (Patient-Reported Outcomes Measurement Information System) scores were reviewed and identified as a rehabilitation concern. Prognosis for therapy is Good due to: current objective clinical presentation, within-session changes . The patient will benefit from skilled therapy services to meet the goals established for this plan of care as noted below. Classification Pain Mechanism Classification: Neuropathic Low Back Pain Classification: Symptom Modulation Goals for Episode of Care: established 05/03/25 Patient reported outcome of physical function will increase T-score by a minimum 5 points. [place] in home exercise program. Patient will decrease pain rating by 2 points to meet minimal clinical important difference for numeric pain rating scale. Patient will increase active trunk ROM to 80% or greater in all planes without pain to allow pt to improve performance of ADLs. Patient will demonstrate increase in B hip strength to 5/5 during manual muscle testing in order to improve function for standing and home remodeling activities. Patient will increase flexibility of his hip rotators to mild restrictions or less to decrease pain. Perform sleeping activities and bed mobility without pain. Patient will improve 5 time sit to stand to demonstrate improvement in functional lower extremity strength. Patient Goals: Eliminate pain and get back to where I was. Time Frame for Goals and Treatment : 07/03/25 Planned Interventions, Frequency, and Duration: Current Frequency: 2x/week Duration: 6 weeks Total Number of Visits Planned: 12 Planned Treatment Interventions: Therapeutic exercise (66818), Neuromuscular re-education (51318), Therapeutic activities (46410), Manual therapy (57089), Self-correction management (17442), Patient/Family/Caregiver Education, General Conditioning PLAN FOR NEXT VISIT: Assess the patient's response to his PT evaluation and HEP. Begin a rehabilitation program with emphasis on improving his lumbar paraspinal, hip rotator, and hamstring flexibility, as well as lower abdominal and hip strengthening in all planes, just avoiding long axis hip extension until his pelvic stability improves. Patient demonstrates good understanding of plan of care and treatment. The above goals and plan of care were discussed and agreed upon by patient/family. SUBJECTIVE: The patient reports that he has been experiencing L sided low back and LLE pain with numbness since the beginning of March. He reported that there was no injury, simiply stating that he was sitting at a reunion when he began noticing his current sypmtoms. Does report that he has a hx of low back pain stating he threw his back out a few years ago. Has had to be careful since, especially when picking things up. Reports improvedment in his sypmtoms since starting prednisone, however, the patient reprots since completion his sypmtoms are returning. At the present, the patient reports more L posterior hip/bottock pain greater than low back pain with pain and numbness of his L lateral thigh, medel, and foot. Denies any saddle paresthesias, but does admit his bowel/bladder has not been the same since his treatment for prostate cancer. States that his spmtoms are the worst at night, especially when laying flat on his L side. Able to perform his personal ADLs just with pain. 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 Patient Goals: Eliminate pain and get back to where I was. Functional Limitations: Comments Functional Limitation Comments: sleep, lay on back, lay on his L side, rolling in bed, sitting, standing, and remodeling his home.. Prior Level of Function: Independent without limitations Relevant History Past Relevant Medical Conditions: Hypertension (hx prostate cancer) Past Relevant Surgical Conditions: (more content not included)... [facility] 04-21-2025 History of Present illness Narrative Images from the original note were not included. CONSULT ORTHOPAEDIC: HIP PRIMARY CARE PHYSICIAN: Norma Davies APRN.ROCKET TEST FIRE WORKER REFERRING PROVIDER: No referring provider defined for this encounter. ASSESSMENT & PLAN There is a 75-year-old male who presents to the office today for severe left hip pain. Of note he has had his right knee replaced by Dr. Smiley and he has been established with Selwyn Leiva PA-C. He was recently seen in in January for severe left knee pain and received cortisone injection at that time. Patient is currently experiencing severe left hip pain and he is unable to sleep or walk due to this. He was sitting at a reunion dinner when he felt a bubble in his back that felt like it popped and he started having pain shortly after. Patient reports pain in the left lower back, buttocks, and occasional radiation to he lateral calf. He states this feels like a spasm sensation. Patient is a former smoker. Denies history of blood clots or use of blood thinners. He is currently on Plaquenil. He does have a history of prostate cancer. PAIN EVALUATION 04/21/2025 0419 04/21/2025 1004 Pain Level: 9 3 Pain Location: Hip-Left -- Description: Pulsating;Sharp;Sore;Stabbing;Te nderness;Throbbing Aching;Cramping;Radiating Duration Amount of Time: 24 -- Duration Units: Hours -- Frequency: Continuous -- Comments: Tylenol does not help this terrible pain , I m up all night in pain , I need relief , need cortisone injection EDD , pain is unbearable , left hip area , -- Impression: Left Low Back Pain and Radicular Pain Diagnoses: (M16.12) Primary osteoarthritis of left hip (primary encounter diagnosis) (M51.27) Lumbago-sciatica due to displacement of lumbar intervertebral disc After discussion with Sylvie Chiu, continued non-operative management of physical therapy, NSAIDS, and prednisone and spine consult was chosen. The patient currently has had progressive symptoms. Progressive symptoms include: Pain impacting sleep or causing fatigue Pain effecting living situation. The patient has been ordered: Office Visit on 04/21/25 [facility] CONSULT TO PHYSICAL THERAPY predniSONE (DELTASONE) 20 mg tablet Physical therapy CONSULTS: Spine medicine for lumbar radiculopathy and sciatica. Total Joint Athroplasty - Risk Calculator Risk Factors for Total Knee Arthroplasty (TKA) Major Risk Factors Obesity High Risk High: BMI > 40 Moderate: BMI 30-40 Normal: BMI < 30 Diabetes normal High: A1C > 8 Moderate: A1C 7-8 Normal: A1C < 7 Hx of DVT / PE normal High: dx of DVT / PE Normal: no dx of DVT / PE Smoking normal High: Current smoker Normal: Non smoker Narcotics Use normal High:NarxCare >=300 Moderate: 100-299 Normal: 0-99 Depression Moderate Risk High: PHQ-9 >14 Moderate: PHQ-9 5-14 Normal: PHQ-9 < 5 Area Deprivation Index (NAS) Unknown Risk High: NAS Score > 75 Moderate: NAS 50-75 Normal: NAS < 50 Obesity: Weight management and obesity medicine (bariatric) program recommended BMI Readings from Last 3 Encounters: 03/02/25 : 41.70 kg/m 01/19/25 : 42.72 kg/m 12/23/24 : 42.46 kg/m Area Deprivation Index (NAS) 05/08/2022 01/30/2023 NAS Score National Score 32 28 Patient Health Questionnaire (PHQ-9) 08/15/2024 03/01/2025 04/21/2025 PHQ-9 PHQ-2 Score 4 2 2 2 PHQ-9 Score 14 Multiple values from one day are sorted in reverse-chronological order (0-4) minimal depression, (5-9) mild depression, (10-14) moderate depression, (15-19) moderately severe depression, (20-27) severe depression Bone Density Risk Screen Sylvie Chiu is at risk for bone loss and has not had a bone densitometry scan in the last 2 years (date of last scan: None on file). Recommend a bone densitometry scan and if indicated on the bone density results, a consult to a bone health specialist (Rheumatology, Endocrinology, or Women's Health) for bone assessment. Risk Factors: Use of Furosemide Use of Proton Pump Inhibitors Prednisone or use of systemic steroids Use of Anti-Convulsants Additional Risk Factors Obstructive Sleep Apnea (APRIL) Past Orthopaedic Surgery: Sylvie had knee surgery on 06/30/2018 with Kenn Gabriel. Sylvie had wrist surgery on 04/15/2024 with Lee Wayne. Malnutrition: No Malnutrition Screening Tool (MST) score on file- please complete the MST screening tool (click here to open) and refresh the note. ACTIVE PROBLEM LIST Obstructive Sleep Apnea (Adult) [...] of Right Knee Bmi 40.0-44.9, Adult (Hcc) Prostate Cancer (Hcc) Left Leg Swelling Peripheral Vascular Disease SUBJECTIVE CHIEF COMPLAINT: buttocks and back pain HPI: Sylvie Chiu is a 75 year old patient with the presenting complaint of New of the Left Hip. Sylvie Chiu has had progressive problems with the hip(s) constantly over the past 3 week(s) interfering with activities which include enjoying hobbies, rising from a sitting position, and sleeping. The problem began limiting activities 1-4 weeks ago. Sylvie reports a current pain level of 3 (Hip-Left). He describes the pain as Aching, Cramping, Radiating. The pain is Continuous, and has lasted for 24 Hours . Tylenol does not help this terrible pain , I m up all night in pain , I need relief , need cortisone injection EDD , pain is unbearable , left hip area ,. FALL RISK: Sylvie is not currently at risk for falls. PROMIS Physical Function Score Descriptive Summary for PROMIS Physical Function T-score = 27 (Percentile 1) Unable - Do chores such as vacuuming or yard work. Much difficulty - Run errands and shop. Much difficulty - Walk about the house. 08/15/2024 03/01/2025 04/21/2025 PROMIS CAT Physical Function T-Score 41 (mild dysfunction) 40 (mild dysfunction) 27 (severe dysfunction) Percentile 18* 16* 1 FUNCTIONAL STATUS: Walk indoors, such as around the house (1.75 METs) Do light work around the house, such as dusting or washing dishes (2.70 METs) Take care of self, that is eating, dressing, bathing, using the toilet (2.75 METs) Walk a block or two on level ground (2.75 METs) Do moderate work around the house such as vacuuming, sweeping floors, or carrying in groceries (3.50 METs) Do yardwork, such as raking leaves, weeding,or pushing a power mower (4.50 METs) PREVIOUS TREATMENTS: Current Anti-Inflammatory medications: prednisone Past anti-inflammatory medications (not necessarily for this reason for visit): amitriptyline HCl, betamethasone acetate,sod phos, celecoxib, dexamethasone, dexamethasone sodium phosphate, hydrocortisone sodium succ/PF, ibuprofen, indomethacin, ketorolac tromethamine, meloxicam, methylprednisolone, naproxen, prednisone, triamcinolone acetonide Medical: RX NSAIDS for 3 Months or Greater (Celebrex) REVIEW OF SYSTEMS: PAIN ASSESSMENT: See HPI. MUSCULOSKELETAL: See HPI. 06/30/2018 Malnutrition Screening Tool (MST) Lost Weight Recently Without Trying? If Yes, Amount of Weight Loss(lbs) 0:No Eating Poorly Because of a Decreased Appetite 0:No Weight Loss Score (Calculated) 0 Appetite Score (Calculated) 0 Total MST Score (Calculated) 0 PAST MEDICAL HISTORY Diagnosis Date Blind right [...] (12oz) per week Drug use: No ALLERGIES: Patient has no known allergies. MEDICATIONS: predniSONE (DELTASONE) 20 mg tablet Take 1 tablet by mouth three times a day for 3 days, THEN 1 tablet two times a day for 3 days, THEN 1 tablet once daily for 3 days. tamsulosin (FLOMAX) 0.4 mg By mouth, take 1-2 tablets daily (to aid in urination flow) gabapentin (NEURONTIN) 100 mg capsule Take 1 capsule by mouth three times a day for 10 days. (Patient not taking: Reported on 03/03/2025) celecoxib (CELEBREX) 200 mg capsule Take 200 [...] supply patient with Full face mask, Santana [employer] VIP [id number]. OBJECTIVE PHYSICAL EXAM There were no vitals taken for this visit. All other systems deferred. GENERAL: Appears healthy, well-nourished, no deformities. HABITUS: Obese GAIT: Antalgic to the left HIP EXAM: Left: ROM: Extension: 5 degree flexion contracture Flexion: 90 degrees Internal Rotation: 20 degrees External Rotation: 35 degrees Abduction: 30 degrees Adduction: 25 degrees Strength: Abduction 5/5 and Flexion 5/5 Palpation: Tenderness over left lumbar spine, buttocks Log roll: non-painful. Straight leg raise: Positive, reproducing radicular symptoms Neurovascular Status: Sensation Intact, Moves foot and ankle up & down, and 2+ dorsalis pedis DATA: He was last seen in orthopaedic clinic for his hip/pelvis on 04/10/2023 with Selwyn Leiva. Most recent hip imaging was completed on 04/21/2025 (XR HIP 2V AP/LAT LEFT (AK,FL,ME,UN)) . Diagnostic tests reviewed for today's visit: Left hip X-Ray: Moderate degenerative changes The following conditions were addressed during the office visit today: I spent a total of approximately 30 minutes on the date of the service which included preparing to see the patient, [id number] patient care, completing clinical documentation, obtaining and/or reviewing separately obtained history, performing a medically appropriate examination, counseling and educating the patient/family/caregiver, ordering medications, tests, or procedures, independently interpreting results (not separately reported), communicating results to the patient/family/caregiver, and care coordination (not separately reported). SIGNATURE: Mayra Buenrostro PA-C PATIENT NAME: Sylvie Chiu DATE: April 21, 2025 TIME: 7:24 AM documented in this encounter [facility] 04-21-2025 Note HNO ID: [id number] Author: MAYRA BUENROSTRO PA-C Service: ? Author Type: Physician Hotel [employer] Motel Room Service Supervisor Type: Progress Notes Filed: 04/21/2025 12:55 Note Text: CONSULT ORTHOPAEDIC: HIP PRIMARY CARE PHYSICIAN: Norma Davies APRN.ROCKET TEST FIRE WORKER REFERRING PROVIDER: No referring provider defined for this encounter. ASSESSMENT AND PLAN There is a 75-year-old male who presents to the office today for severe left hip pain. Of note he has had his right knee replaced by Dr. Smiley and he has been established with Selwyn Leiva PA-C. He was recently seen in in January for severe left knee pain and received cortisone injection at that time. Patient is currently experiencing severe left hip pain and he is unable to sleep or walk due to this. He was sitting at a reunion dinner when he felt a bubble in his back that felt like it popped and he started having pain shortly after. Patient reports pain in the left lower back, buttocks, and occasional radiation to he lateral calf. He states this feels like a spasm sensation. Patient is a former smoker. Denies history of blood clots or use of blood thinners. He is currently on Plaquenil. He does have a history of prostate cancer. PAIN EVALUATION 04/21/2025 0419 04/21/2025 1004 Pain Level: 9 3 Pain Location: Hip-Left -- Description: Pulsating;Sharp;Sore;Stabbing;Te nderness;Throbbing Aching;Cramping;Radiating Duration Amount of Time: 24 -- Duration Units: Hours -- Frequency: Continuous -- Comments: Tylenol does not help this terrible pain , I?m up all night in pain , I need relief , need cortisone injection EDD , pain is unbearable , left hip area , -- Impression: Left Low Back Pain and Radicular Pain Diagnoses: (M16.12) Primary osteoarthritis of left hip (primary encounter diagnosis) (M51.27) Lumbago-sciatica due to displacement of lumbar intervertebral disc After discussion with Sylvie Chiu, continued non-operative management of physical therapy, NSAIDS, and prednisone and spine consult was chosen. The patient currently has had progressive symptoms. Progressive symptoms include: Pain impacting sleep or causing fatigue Pain effecting living situation. The patient has been ordered: Office Visit on 04/21/25 [facility] CONSULT TO PHYSICAL THERAPY predniSONE (DELTASONE) 20 mg tablet Physical therapy CONSULTS: Spine medicine for lumbar radiculopathy and sciatica. Total Joint Athroplasty - Risk Calculator Risk Factors for Total Knee Arthroplasty (TKA) Major Risk Factors Obesity High Risk High: BMI > 40 Moderate: BMI 30-40 Normal: BMI < 30 Diabetes normal High: A1C > 8 Moderate: A1C 7-8 Normal: A1C < 7 Hx of DVT / PE normal High: dx of DVT / PE Normal: no dx of DVT / PE Smoking normal High: Current smoker Normal: Non smoker Narcotics Use normal High:NarxCare >=300 Moderate: 100-299 Normal: 0-99 Depression Moderate Risk High: PHQ-9 >14 Moderate: PHQ-9 5-14 Normal: PHQ-9 < 5 Area Deprivation Index (NAS) Unknown Risk High: NAS Score > 75 Moderate: NAS 50-75 Normal: NAS < 50 Obesity: Weight management and obesity medicine (bariatric) program recommended BMI Readings from Last 3 Encounters: 03/02/25 : 41.70 kg/m? 01/19/25 : 42.72 kg/m? 12/23/24 : 42.46 kg/m? Area Deprivation Index (NAS) 05/08/2022 01/30/2023 NAS Score National Score 32 28 Patient Health Questionnaire (PHQ-9) 08/15/2024 03/01/2025 04/21/2025 PHQ-9 PHQ-2 Score 4 2 2 2 PHQ-9 Score 14 Multiple values from one day are sorted in reverse-chronological order (0-4) minimal depression, (5-9) mild depression, (10-14) moderate depression, (15-19) moderately severe depression, (20-27) severe depression Bone Density Risk Screen Sylvie Chiu is at risk for bone loss and has not had a bone densitometry scan in the last 2 years (date of last scan: None on file). Recommend a bone densitometry scan and if indicated on the bone density results, a consult to a bone health specialist (Rheumatology, Endocrinology, or Women's Health) for bone assessment. Risk Factors: Use of Furosemide Use of Proton Pump Inhibitors Prednisone or use of systemic steroids Use of Anti-Convulsants Additional Risk Factors Obstructive Sleep Apnea (APRIL) Past Orthopaedic Surgery: Sylvie had knee surgery on 06/30/2018 with Kenn Gabriel. Sylvie had wrist surgery on 04/15/2024 with Lee Wayne. Malnutrition: No Malnutrition Screening Tool (MST) score on file- please complete the MST screening tool (click here to open) and refresh the note. ACTIVE PROBLEM LIST Obstructive Sleep Apnea (Adult) (Pediatric) Degenerative Arthritis of Knee Carpal Tunnel Syndrome of Right Wrist Essential Hypertension April Treated With Bipap Gastroesophageal Reflux Disease Without Esophagitis Class 2 Obesity With Body Mass Index (Bmi) of 38.0 to 38.9 in Adult Cataract, Nuclear Sclerotic Senile History of Radial Keratotomy Hereditary and Idiopathic Peripheral Neuropathy (more content not included)... [facility] 04-21-2025 History of Present illness Narrative Radiology Service Progress Note PATIENT NAME: Sylvie Chiu MRN: [id number] DATE OF SERVICE: April 21, 2025 TIME: 9:31 AM PATIENT IDENTITY VERIFICATION COMPLETED [...] PATIENT PRESENTS WITH AN IMPLANTABLE OR ATTACHED GREY STOCK RECORDER: No RADIOLOGY DEPARTMENT: General X-ray: Exam(s) Completed: Pelvis X-Ray: Pelvis with Hip Left Lower Extremity X-Ray(s): Leg Length PERIPHERAL IV DATA: Not applicable SIGNED BY: PHAN Rodrigues) April 21, 2025 9:31 AM documented in this encounter [facility] 04-21-2025 Note HNO ID: [id number] Author: CAITLIN HOROWITZ RT(Eyal) Service: ? Author Type: Technologist Type: Progress Notes Filed: 04/21/2025 09:31 Note Text: Radiology Service Progress Note PATIENT NAME: Sylvie Chiu MRN: [id number] DATE OF SERVICE: April 21, 2025 TIME: 9:31 AM PATIENT IDENTITY VERIFICATION COMPLETED [...] PATIENT PRESENTS WITH AN IMPLANTABLE OR ATTACHED GREY STOCK RECORDER: No RADIOLOGY DEPARTMENT: General X-ray: Exam(s) Completed: Pelvis X-Ray: Pelvis with Hip Left Lower Extremity X-Ray(s): Leg Length PERIPHERAL IV DATA: Not applicable SIGNED BY: RT Lilia(R) April 21, 2025 9:31 AM [facility] 03-09-2025 Evaluation note Diagnosis Onset Date Resolution Central sleep apnea acute March 09, 2025 6:54pm 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 Author Type: Physician Hotel Or Motel Room Service Supervisor Type: Progress Notes Filed: 03/03/2025 08:40 Note [...] Full face mask, Santana [employer] VIP 7600. 1 0 gabapentin (NEURONTIN) 100 [...] specified: venous stasis changes bilateral LE Mr. hCiu has no difficulty arising out of a chair and has no difficulty ambulating i (more content not included)...[facility] History of Present illness Narrative* Selwyn Leiva PA-C - 03/03/2025 8:34 AM EDTAssociated Order(s): Large Joint Arthro/Inj: L knee joint [...] pain relief. He is now having increased painwith activity, no sleep disruption.. Pleased with outcome: [...] supply patient with Full face mask, Santana [employer] VIP 7600. 1 0 gabapentin (NEURONTIN) 100 [...] Straight leg raise and femoral nerve stretch testswere negative for acute radicular symptoms to suggest [...] these instructions. Informed Consent Consent Obtained: Verbal [place] Protocol A moment to CARE was completed. [...] left knee. If there are any questions orproblems, patient instructed to call the office. Rx Drug Management: No prescription given at today's appointment. Selwyn Leiva PA-C documented [facility] History of Present illness Narrative* Amisha Green Tech - 03/03/2025 8:00 AM EDT Radiology Service Progress Note PATIENT NAME: Sylvie Chiu MRN: [id number] DATE OF SERVICE: March 03, 2025 TIME: 8:09 AM PATIENT IDENTITY VERIFICATION COMPLETED USING TWO (2) IDENTIFIERS: Name and Date of confirmedby patient verbally. FALL SCREENING: Has the patient had 2 falls in the last year or 1 fall with injury or currently using an Ambulatory Assistive Device (Walker, Cane, Wheelchair, Crutches, etc.)? No PATIENT GENDER DATA: Assigned male at PATIENT RELEVANT IMPLANT DATA REVIEWED: Not Applicable PATIENT PRESENTS WITH AN IMPLANTABLE OR ATTACHED GREY STOCK RECORDER: No RADIOLOGY DEPARTMENT: General X-ray: Exam(s) Completed: Lower Extremity X- Ray(s): Knee, AP / Lat / Tunne / Merchant Left and Wt. Bearing PERIPHERAL IV DATA: Not applicable SIGNED BY: Geno Christina March 03, 2025 8:09 AM documented in this encounterSt[facility]25 NoteHNO ID: [id number] Author: AMISHA GREEN Tech Service: ? Author Type: Apartment Leasing Manager Type: Progress Notes Filed: 03/03/2025 08:09 Note [...] PATIENT PRESENTS WITH AN IMPLANTABLE OR ATTACHED GREY STOCK RECORDER: No RADIOLOGY DEPARTMENT: General X-ray: Exam(s) Completed: Lower Extremity X-Ray(s): Knee, AP / Lat / Tunne / Merchant Left and Wt. Bearing PERIPHERAL IV DATA: Not applicable SIGNED BY: Geno Christina March 03, 2025 8:09 AMLake[facility] Medical [id number] Instructions* Patient Instructions * Natan Alcazar, - 03/02/2025 8:31 AM EDT Post injection [...] you are not able to take an anti- inflammatory due to other reasons (you have been [...] out of the water) for the contrast ofhot water, but it can be done outside [...] our office a call. documented in this encounterSt[facility] History of Present illness Narrative* Natan Alcazar DO - 03/02/2025 8:20 AM EDT Associated Order(s): Small Joint Arthro/Inj: L thumb CMC Post-Procedure Diagnose(s): Arthritis of carpometacarpal (CMC) joint of left thumb Images from the original note were not included. CHIEF COMPLAINT: Patient presents with: Left Wrist - Established Patient, Pain PAIN EVALUATION 03/01/2025 1037 03/02/2025 0753 Pain Level: 6 2 Pain Location: Wrist-Left Wrist-Left Description: Aching;Cramping;Sore;Stabbing;Stiffness;Tenderness;Throbbing Aching Duration Amount of Time: -- 5 [...] utilized to successfully localize placement of the injectionneedle at the appropriate site. Ultrasound images demonstrating local vasculature and demonstratinginjection of solution were saved. Medications: 40 mg triamcinolone acetonide 40 mg/mL Anesthetics: 0.5 mL ROPivacaine (PF) 5 mg/mL (0.5 %) Outcome: tolerated well, no immediate complications Post-injection instructions were reviewed with the patient and the patient voiced understanding of these instructions. Informed Consent Consent Obtained: Verbal [place] Protocol A moment to CARE was completed. [...] Physician Medical Decision Making documented in this encounterSt. [facility]06-[facility]-2025 NoteHNO ID: [id number] Author: NATAN ALCAZAR DO Service: ? Author Type: Physician Type: Progress Notes Filed: 03/02/2025 08:49 Note Text: CHIEF COMPLAINT: Patient presents with: Left Wrist - Established Patient, Pain PAIN EVALUATION 03/01/2025 1037 03/02/2025 0753 Pain Level: 6 2 Pain Location: Wrist-Left Wrist-Left Description: Aching;Cramping;Sore;Stabbing;Stiffness;Tenderness;Throbbing Aching Duration Amount of Time: -- 5 [...] these instructions. Informed Consent Consent Obtained: Verbal [place] Protocol A moment to CARE was completed. [...] Alcazar DO Sports Medicine Physician Medical Decision MakingGlenbe[facility]03-28-2025 NoteHNO ID: [id number] Author: ROS CHENG RN Service: ? Author Type: Registered Nurse Type: Progress Notes Filed: 12/23/2024 16:11 Note Text: Radiation Therapy - Nursing Note (Follow-up) PATIENT NAME: Sylvie Chiu PATIENT December 23, 2024 [facility] FACILITY/LOCATION: [place] Reason for visit: Follow up. Subjective Data The hyperbaric that I did has helped me. Minimal burning with urination noted and the past 2 weeks no bowel leakage and BM 2 a day Additional Data Do you want to see a Draw Bench Operator Helper? No Difficulty performing or completing routine daily [...] 1-2 a day SIGNED by: Ros Cheng RNGlenbeigh Hospital03-28-2025 History of Present illness Narrative* Ros Cheng RN - 12/23/2024 9:51 AM EDT Images from the original note were not included. Radiation Therapy - Nursing Note (Follow-up) PATIENT NAME: Sylvie Chiu PATIENT December 23, 2024 [facility] FACILITY/LOCATION: [place] Reason for visit: Follow up. Subjective Data The hyperbaric that I did has helped me. Minimal burning with urination noted and the past 2 weeks no bowel leakage and BM 2 a day Additional Data Do you want to see a Draw Bench Operator Helper? No Difficulty performing or completing routine daily [...] No. Rectal pain: No. Bladder function: urgency, frequency.Urinary frequency (D/N): 8-10/0. Flomax 1-2 a day SIGNED by: Ros Cheng RN * Hussein Ordonez MD - 12/23/2024 9:00 AM EDT Images from the original note were not included. 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 Prostate biopsy on 05/08/22 showed adenocarcinoma, Second Mesa 3+4=7 (1 core), Samantha 3+3=6 (9 cores) [...] 12/14/23); felt not to have rheumatoid arthritis, butto have OA. He was referred back to urology in January 2024 (Dr. Michelle) due to LUTS - no stricture seen on 02/19/24 He also noted urgent stools. Colonoscopy on 01/27/24 ([facility]) showed non-bleeding diverticula in the sigmoid [...] with Full face mask, Santana [employer] VIP 3502. REVIEW OF SYSTEMS: He notes energy is [...] old man with high-intermediate risk prostate cancer, [id number], GG2, clinical Stage IIB, iPSA 5.5 [Samantha 3+4=7 (1 core), Second Mesa 3+3=6 (9 cores) (10/13 cores+); prostate MRI- enlarged pelvic - concern for inguinal LN/bone metastasis, high-risk Decipher test - 0.98; PSMA-PET negative for bone/LN metastasis], s/p: Leuprolide 22.5 mg inj 09/09/22, 12/09/22 Radiation therapy 11/06/22 - 12/15/22 [7000 cGy/6600 cGy/5040 cGy/28 fx to prostate/SVs/pelvic lymph nodes] Doing well overall. No evidence of recurrence. LUTS/BMs manageable, improved after HBOT. I will seehim again in 6 months with a PSA level. I spent 30 minutes in the visit in visit preparation / counseling / coordination of care. Signed by: Hussein Ordonez MD cc: MD Doron Hernadez MD documented in this encounterSt. [facility]03-28-2025 NoteHNO ID: [id number] Author: HUSSEIN ORDONEZ MD Service: ? Author Type: Physician Type: Progress Notes Filed: 12/23/2024 16:11 Note Text: Radiation Oncology - Follow Up Note PATIENT NAME: Sylvie Chiu PATIENT DIAGNOSIS: 74 year old man with high-intermediate risk prostate cancer, [id number], GG2, clinical Stage IIB, iPSA 5.5 [Samantha [...] urgent stools. Colonoscopy on 01/27/24 ([facility]) showed non-bleeding diverticula in the sigmoid [...] Please supply patient with Full face mask, [employer] VIP [id number]. REVIEW OF SYSTEMS: He notes energy is [...] old man with high-intermediate risk prostate cancer, [id number], (more content not included)...[facility] Telephone encounter Note* Telephone Encounter - Rohini Saab RN - 12/19/2024 8:51 AM EDT Message left on spouse's phone that PSA order has been entered. [facility]03-24-[facility] Miscellaneous Notes* Telephone Encounter - Rohini Saab RN - 12/19/2024 8:51 AM EDT Message left on spouse's phone that PSA order has been entered. documented in this encounterSt. [facility] Hospital11-19-2024 Instructions* Patient Instructions* Natan Alcazar DO - 08/16/2024 4:05 PM EST Post injection [...] this will reduce the need to use anti- inflammatories by mouth and/or if you are not able to take an anti-inflammatory due to other reasons (you have been advised to avoid or they are contra-indicate d). Activity recommendations: For the first 24 hours [...] out of the water) for the contrast ofhot water, but it can be done outside [...] our office a call. documented in this encounterSt. [facility] Hospital11-19-2024 History of Present illness Narrative* Natan Alcazar DO - 08/16/2024 4:00 PM EST Associated Order(s): Small Joint Arthro/Inj: R thumb CMC Post-Procedure Diagnose(s): Primary osteoarthritis of first carpometacarpal joint of right hand Images from the original note were not included. CHIEF COMPLAINT: Patient presents with: Right Thumb - Established Patient, Pain, Injections PAIN EVALUATION 08/15/2024 2248 08/16/2024 1601 Pain Level: 5 6 Pain Location: Hand-Right Finger Description: Aching;Burning;Cramping;Numbness;Pulsating;Radiating;Sharp;Shooting;Sore;Stabbin g;Throbbing;Tightness;Tingling Aching;Sharp Duration Amount of Time: -- [...] results and radiologist's interpretation, available in the [facility] health record. Images were reviewed with the [...] thumb CMC Informed Consent Consent Obtained: Verbal [place] Protocol A moment to CARE was completed. [...] utilized to successfully localize placement of the injectionneedle at the appropriate site. Ultrasound images demonstrating local vasculature and demonstratinginjection of solution were saved. Medications: 40 mg [...] DO Sports Medicine Physician documented in this encounterSt. [facility] Hospital11-19-2024 NoteHNO ID: [id number] Author: NATAN ALCAZAR DO Service: ? Author Type: Physician Type: Progress Notes Filed: 08/16/2024 16:25 Note Text: CHIEF COMPLAINT: Patient presents with: Right Thumb - Established Patient, Pain, Injections PAIN EVALUATION 08/15/2024 3988 08/16/2024 1601 Pain Level: 5 6 Pain Location: Hand-Right Finger Description: Aching;Burning;Cramping;Numbness;Pulsating;Radiating;Sharp;Shooting;Sore;Stabbin g;Throbbing;Tightness;Tingling Aching;Sharp Duration Amount of Time: -- [...] results and radiologist's interpretation, available in the [facility] health record. Images were reviewed with the [...] thumb CMC Informed Consent Consent Obtained: Verbal [place] Protocol A moment to CARE was completed. [...] Electronically Signed: Natan Alcazar DO Sports Medicine PhysicianGlenbeigh Hospital11-05-2024 History of Present illness Narrative* Avelina Disla RT(R) - 08/02/2024 10:00 AM EST Radiology Service Progress Note PATIENT NAME: Sylvie Chiu DATE OF SERVICE: August 02, 2024 TIME: 10:09 AM PATIENT IDENTITY VERIFICATION COMPLETED USING TWO (2) IDENTIFIERS: Name and Date of confirmedby patient verbally. FALL SCREENING: Has the patient had 2 falls in the last year or 1 fall with injury or currently using an Ambulatory Assistive Device (Walker, Cane, Wheelchair, Crutches, etc.)? No PATIENT GENDER DATA: Male PATIENT RELEVANT IMPLANT DATA REVIEWED: Not Applicable PATIENT PRESENTS WITH AN IMPLANTABLE OR ATTACHED GREY STOCK RECORDER: No RADIOLOGY DEPARTMENT: General X-ray: Exam(s) Completed: Upper Extremity X- Ray(s): Hand, right PERIPHERAL IV DATA: Not applicable SIGNED BY: RT Fany(Eyal) August 02, 2024 10:09 AM documented in this encounterSt. [facility]11-[facility]-2024 NoteHNO ID: [id number] Author: AVELINA DISLA RT(R) Service: ? Author Type: Apartment Leasing Manager Type: Progress Notes Filed: 08/02/2024 10:09 Note [...] PATIENT PRESENTS WITH AN IMPLANTABLE OR ATTACHED GREY STOCK RECORDER: No RADIOLOGY DEPARTMENT: General X-ray: Exam(s) Completed: Upper Extremity X-Ray(s): Hand, right PERIPHERAL IV DATA: Not applicable SIGNED BY: RT Fany(Eyal) August 02, 2024 10:09 [facility]11-05-2024 History of Present illness Narrative* Natan Alcazar, - 08/02/2024 9:30 AM EST Associated Order(s): Small Joint Arthro/Inj: L thumb [...] thumb CMC Informed Consent Consent Obtained: Verbal [place] Protocol A moment to CARE was completed. [...] utilized to successfully localize placement of the injectionneedle at the appropriate site. Ultrasound images demonstrating local vasculature and demonstratinginjection of solution were saved. Medications: 40 mg [...] DO Sports Medicine Physician documented in this encounterSt. Francis Hospital11-05-2024 NoteHNO ID: [id number] Author: NATAN ALCAZAR DO Service: ? Author [...] thumb [facility] Informed Consent Consent Obtained: Verbal [place] Protocol A moment to CARE was completed. [...] Electronically Signed: Natan Alcazar DO Sports Medicine PhysicianGlenbeigh Hospital10-10-2024 Telephone encounter Note* Telephone Encounter - Maureen Kirby RN - 07/07/2024 1:24 PM EDT Patients called checking on prescription for Gabapentin- which was called into pharmacy and looking for info on the US guided injection for his thumb. A consult request was sent to Dr Sanchez and they will contact the pt to schedule an appt. verbalized understanding of info. [facility] Miscellaneous Notes* Telephone Encounter - Maureen Kirby RN - 07/07/2024 1:24 PM EDT Patients called checking on prescription for Gabapentin- which was called into pharmacy and looking for info on the US guided injection for his thumb. A consult request was sent to Dr Sanchez and they will contact the pt to schedule an appt. verbalized understanding of info. documented in this encounterSt. Francis Hospital10-09-2024 Telephone encounter Note * Telephone Encounter - Seda Hatch LISW - 07/06/2024 8:38 AM EDT Images from the original note were not included. Patient Declined Social Work Assessment He states he did not fill this survey out CLARITA Weir [facility] Work Phone: [phone] Miscellaneous Notes* Telephone Encounter - Seda Hatch LISW - 07/06/2024 8:38 AM EDT Images from the original note were not included. Patient Declined Social Work Assessment He states he did not fill this survey out CLARITA Weir documented in this encounterSt. Francis Hospital10-08-2024 NoteHNO ID: [id number] Author: LEE WAYNE MD Service: ? Author Type: Physician Type: Progress Notes Filed: 07/25/2024 15:23 Note Text: Lee Wayne MD Department of Orthopaedics Orthopaedics [address] [address] Dept: [phone] July 05, 2024 CHIEF COMPLAINT: Post Op [...] and degenerative changes with possible scapholunate dissociation Resistance Brazer: SAMANTHA Transcribe Date/Time: Apr 01 2024 7:48A Dictated by : ISAEL MAGAÑA MD This examination was interpreted and the report reviewed and electronically signed by: ISAEL MAGAÑA MD on Apr 01 2024 7:49AM EST Results-Findings * * *Final Report* * * DATE OF EXAM: Mar 29 2024 10:03AM MANUEL 5270 - XR WRIST 3V PA/LAT/OBL LT / PROCEDURE REASON: [id number] * * * * Physician Interpretation * [...] Please supply patient with Full face mask, [place] [employer] VIP [id number]. No current facility-administered medications for this visit. Allergies: Patient has no known allergies. Lee Wayne [facility]10-08-2024 History of Present illness Narrative* Lee Wayne MD - 07/05/2024 10:43 AM EDT Lee Wayne MD Department of Orthopaedics Orthopaedics [facility] [address] [address] Dept: [phone] July 05, 2024 CHIEF COMPLAINT: Post Op [...] from his carpal tunnel. We'll go with gabapentin.The basal joint (and STT) joints are bothering him quite a bit. He would like to try an US guided injection and we'll help get that arranged. We may have to think about exploration of the carpal tunnel site to check on scar tissue vs. Injuryand a nerve wrap. Exam: Healed incision. Positive tinnels in the palm. Swelling down. Motion better. Thumb joint with pain,swelling, positive grind test. Imaging: IMPRESSION: Bone demineralization and degenerative changes with possible scapholunate dissociation Resistance Brazer: SAMANTHA Transcribe Date/Time: Apr 01 2024 7:48A Dictated by : ISAEL MAGAÑA MD This examination was interpreted and the report reviewed and electronically signed by: ISAEL MAGAÑA MD on Apr 01 2024 7:49AM EST Results-Findings * * *Final Report* * * DATE OF EXAM: Mar 29 2024 10:03AM MANUEL 5270 - XR WRIST 3V PA/LAT/OBL LT / PROCEDURE REASON: [id number] * * * * Physician Interpretation * [...] Please supply patient with Full face mask, [employer] VIP 7600. No current facility-administered medications for this visit. Allergies: Patient has no known allergies. Lee Wayne MD documented in this encounterSt. Francis Hospital09-27-2024 Nurse Note* Ros Cheng RN - 06/24/2024 11:42 AM EDT Images from the original note were not included. Radiation Therapy - Nursing Note (Follow-up) PATIENT NAME: Sylvie Chiu PATIENT June 24, 2024 [facility] FACILITY/LOCATION: [place] Reason for visit: Follow up. Subjective Data I still maya with bowel and bladder problems since the radiation and the side effects from the Lupron injections Additional Data Do you want to see a Draw Bench Operator Helper? No Difficulty performing or completing routine daily [...] No. Rectal pain: No. Bladder function: urgency, frequency,incomplete emptying. Urinary frequency (D/N): 06/28.reports pelvic pain when he has to urinate at night which wakes him up; not the urge to urinate. Flomax 1 AM and 1 PM PSA lab completed 06-06-24 Hot flash at times will occur Future Appointments Date Time Provider Department Center 07/05/2024 10:45 AM [facility]/12/2024 10:50 AM Selwyn Michelle MD [facility] 09/12/2024 8:00 AM Francisco Davis, RAJENDRA.ROCKET TEST FIRE WORKER [facility] 12/19/2024 8:00 AM LAB [facility] 12/23/2024 9:00 AM Hussein Ordonez MD [facility] 12/27/2024 9:00 AM Alex Erazo MD [facility] SIGNED by: Ros Cheng RN [facility] Nurse Note* Ros Cheng, DYLAN - 06/24/2024 11:42 AM EDT Images from the original note were not included. Radiation Therapy - Nursing Note (Follow-up) PATIENT NAME: Sylvie Chiu PATIENT June 24, 2024 [facility] FACILITY/LOCATION: [place] Reason for visit: Follow up. Subjective Data I still maya with bowel and bladder problems since the radiation and the side effects from the Lupron injections Additional Data Do you want to see a Draw Bench Operator Helper? No Difficulty performing or completing routine daily [...] No. Rectal pain: No. Bladder function: urgency, frequency,incomplete emptying. Urinary frequency (D/N): 06/28.reports pelvic pain when he has to urinate at night which wakes him up; not the urge to urinate. Flomax 1 AM and 1 PM PSA lab completed 06-06-24 Hot flash at times will occur Future Appointments Date Time Provider Department Center 07/05/2024 10:45 AM Lee Wayne MD [facility] 08/12/2024 10:50 AM Selwyn Michelle MD [facility] 09/12/2024 8:00 AM Francisco Davis, BULB PLANTER.[facility] 12/19/2024 8:00 AM [facility]/23/2024 9:00 AM [facility] 12/27/2024 9:00 AM Alex Erazo MD [facility] SIGNED by: Ros Cheng RN documented in this encounterSt. Francis Hospital09-27-2024 History of Present illness Narrative* Hussein Ordonez MD - 06/24/2024 11:00 AM EDT Images from the original note were not included. Radiation Oncology - Follow Up Note PATIENT NAME: Sylvie Chiu PATIENT DIAGNOSIS: 74 year old man with high-intermediate risk prostate cancer, [id number], GG2, clinical Stage IIB, iPSA 5.5 [Samantha [...] MANJU. Prostate biopsy on 05/08/22 showed adenocarcinoma, Second Mesa 3+4=7 (1 core), Second Mesa 3+3=6 (9 cores) (10/13 cores+). CT of [...] 12/14/23); felt not to have rheumatoid arthritis, butto have OA. He was referred back to urology in January 2024 (Dr. Michelle) due to LUTS - no stricture seen on 02/19/24 He also noted urgent stools. Colonoscopy on 01/27/24 ([facility]) showed non-bleeding diverticula in the sigmoid [...] Full face mask, Santana Rose VIP [id number]. REVIEW OF SYSTEMS: He remains [...] old man with high-intermediate risk prostate cancer, [id number], GG2, clinical Stage IIB, iPSA 5.5 [Second Mesa 3+4=7 (1 core), Samantha 3+3=6 (9 cores) (07/10 cores+); prostate MRI- enlarged pelvic - concern for inguinal LN/bone [...] MD Doron Hernadez MD documented in this encounterSt. Francis Hospital09-27-2024 NoteHNO ID: [id number] Author: HUSSEIN ORDONEZ MD Service: ? Author Type: Physician Type: Progress Notes Filed: 06/24/2024 11:47 Note Text: Radiation Oncology - Follow Up Note PATIENT NAME: Sylvie Chiu PATIENT DIAGNOSIS: 74 year old man with high-intermediate risk prostate cancer, [id number], GG2, clinical Stage IIB, iPSA 5.5 [Samantha 3+4=7 (1 core), Second Mesa 3+3=6 (9 cores) (10/13 cores+); prostate MRI [...] MANJU. Prostate biopsy on 05/08/22 showed adenocarcinoma, Second Mesa 3+4=7 (1 core), Samantha 3+3=6 (9 cores) [...] stools. Colonoscopy on 01/27/24 ([facility]) showed non-bleeding diverticula in the sigmoid [...] Full face mask, Santana Rose VIP 7600. REVIEW OF SYSTEMS: He remains [...] old man with high-intermediate risk prostate cancer, [id number], GG2, clinical Stage IIB, iPSA 5.5 [Samantha 3+4=7 (1 core), Second Mesa 3+3=6 (9 cores) (07/10 cores (more content not included)...[facility]08-27-[facility]24 NoteHNO ID: [id number] Author: LEE WAYNE MD Service: ? Author Type: Physician Type: Progress Notes Filed: 06/21/2024 09:16 Note Text: Lee Wayne MD Department of Orthopaedics Orthopaedics [address] [place] [address] Dept: [phone] May 24, 2024 CHIEF COMPLAINT: Established Patient [...] supply patient with Full face mask, Santana [place] VIP [id number]. No current facility-administered medications for this visit. Allergies: Patient has no known allergies. Lee Wayne [facility]08-27-2024 History of Present illness Narrative* Lee Wayne MD - 05/24/2024 3:16 PM EDT Lee Wayne MD Department of Orthopaedics Orthopaedics [address] [place] [address] Dept: [phone] May 24, 2024 CHIEF COMPLAINT: Established Patient [...] and follow-up as needed, discussion about that thismay take 6 to 12 months for full [...] supply patient with Full face mask, Santana [place] VIP 7600. No current facility-administered medications for this visit. Allergies: Patient has no known allergies. Lee Wayne MD documented in this encounterSt. Francis Hospital07-30-2024 NoteHNO ID: [id number] Author: AFSANEH HAYES PA-C Service: ? Author Type: Physician [employer] Room Service Supervisor Type: Progress Notes Filed: 04/26/2024 12:04 Note Text: Afsaneh Hayes PA-C Department of Orthopaedics Orthopaedics [address] [address] Dept: [phone] April 26, 2024 CHIEF COMPLAINT: Post Op [...] allergies. This note was partially generated using Cognuse voice recognition system, and there may be some incorrect words, spellings, and punctuation that were not noted in checking the note before saving. [facility]07-30-[facility] History of Present illness Narrative* Afsaneh Hayes PA-C - 04/26/2024 12:03 PM EDT Afsaneh Hayes PA-C Department of Orthopaedics Orthopaedics [address] [address] Dept: [phone] April 26, 2024 CHIEF COMPLAINT: Post Op [...] erythema or drainage. Mild but appropriate edema withoutecchymosis. Subjective numbness in the left thumb and [...] supply patient with Full face mask, Santana [place] VIP 7600. iv contrast (will be provided [...] allergies. This note was partially generated using [employer] voice recognition system, and there may be some incorrect words, spellings, and punctuation that were not noted in checking the note before saving. Afsaneh Hayes PA-C documented in this encounterSt. Francis Hospital07-03-2024 Telephone encounter Note * Telephone Encounter - Chantale Abdul MA - 03/30/2024 10:52 AM EDT Surgery has been scheduled as requested. Post op appointments have been scheduled and mailed to the patient. [facility]24 Miscellaneous Notes* Telephone Encounter - Chantale Abdul MA - 03/30/2024 10:52 AM EDT Surgery has been scheduled as requested. Post op appointments have been scheduled and mailed to the patient. * Telephone Encounter - Chantale Abdul MA - 03/29/2024 2:01 PM EDT Surgical request completed for left CTR at [facility] on 04/15/2024 with local anesthesia. documented in this encounterSt. Francis Hospital07-02-2024 Telephone encounter Note * Telephone Encounter - Chantale Abdul MA - 03/29/2024 2:01 PM EDT Surgical request completed for left CTR at [facility] on 04/15/[address] [facility]07-02-[facility] History of Present illness Narrative* Lee Wayne MD - 03/29/2024 10:48 AM EDT Lee Wayne MD Department of Orthopaedics Orthopaedics [address] [place] [address] Dept: [phone] March 29, 2024 CHIEF COMPLAINT: New and Pain of the Left Hand HPI Patient here today for left hand/wrist pain. He worked for [employer] and was manually loading and unloading his [...] and no tenderness to palpation, Spurling's sign negative.Shoulders and elbows have full range of motion. [...] or catching of the digits. No tenderness topalpation or masses noted in the forearm or [...] with Full face mask, Santana [place] VIP [id number]. No current facility-administered medications for this visit. Allergies: Patient has no known allergies. ROS: General (negative for fatigue, malaise, weight loss/gain) HEENT (negative for headache, earache, recent vision changes, sinus pain, sore throat) Respiratory (no recent shortness of breath, hemoptysis) CV (negative for chest tightness, palpitations) Musculoskeletal (see HPI) Psych (no depression, anxiety) Lee Wayne MD documented in this encounterSt. Francis Hospital07-02-2024 History of Present illness Narrative* Amisha Green Tech - 03/29/2024 10:20 AM EDT Radiology Service Progress Note PATIENT NAME: Sylvie Chiu MRN: [id number] DATE OF SERVICE: March 29, 2024 TIME: 10:11 AM PATIENT IDENTITY VERIFICATION COMPLETED USING TWO (2) IDENTIFIERS: Name and Date of confirmedby patient verbally. FALL SCREENING: Has the patient had 2 falls in the last year or 1 fall with injury or currently using an Ambulatory Assistive Device (Walker, Cane, Wheelchair, Crutches, etc.)? No PATIENT GENDER DATA: Male PATIENT RELEVANT IMPLANT DATA REVIEWED: Not Applicable PATIENT PRESENTS WITH AN IMPLANTABLE OR ATTACHED GREY STOCK RECORDER: No RADIOLOGY DEPARTMENT: General X-ray: Exam(s) Completed: Upper Extremity X- Ray(s): Wrist, left PERIPHERAL IV DATA: Not applicable SIGNED BY: Geno Christina March 29, 2024 10:11 AM documented in this encounterSt. Francis Hospital06-05-2024 History of Present illness Narrative* Albina Smith RT(Eyal) - 03/02/2024 3:45 PM EDT Radiology Service Progress Note PATIENT NAME: Sylvie Chiu MRN: [id number] DATE OF SERVICE: March 02, 2024 TIME: 3:48 PM PATIENT IDENTITY VERIFICATION COMPLETED USING TWO (2) IDENTIFIERS: Name and Date of confirmedby patient verbally. FALL SCREENING: Has the patient had 2 falls in the last year or 1 fall with injury or currently using an Ambulatory Assistive Device (Walker, Cane, Wheelchair, Crutches, etc.)? No PATIENT GENDER DATA: Male PATIENT RELEVANT IMPLANT DATA REVIEWED: Not Applicable PATIENT PRESENTS WITH AN IMPLANTABLE OR ATTACHED GREY STOCK RECORDER: No RADIOLOGY DEPARTMENT: General X-ray: Exam(s) Completed: Spine X-Ray(s): Thoracic PERIPHERAL IV DATA: Not applicable SIGNED BY: RT Sal(R) March 02, 2024 3:48 PM documented in this encounterSt. Francis Hospital05-24-2024 NoteHNO ID: [id number] Author: SELWYN MICHELLE MD Service: ? Author Type: Physician Type: Progress Notes Filed: 02/19/2024 15:01 Note Text: HISTORY: Sylvie Chiu is a 73 year old man with high-intermediate risk prostate cancer, [id number], Stage IVB, GG2, clinical Stage IIB [Second Mesa 3+4=7 (1 core), Samantha 3+3=6 (9 cores) [...] Prostate, left apex, biopsy: - Prostatic adenocarcinoma, Second Mesa score 3+3=6, grade group 1, involving 1 of 1 core (1 mm, 25%). D. Prostate, left lateral base, biopsy: - Prostatic adenocarcinoma, Samantha score 3+4=7, grade group 2, involving 1 of 1 core (6 mm, 85%). - Samantha pattern 4 comprises approximately 10% of the carcinoma. - Small gland cribriform morphology is identified. - Atypical intraductal proliferation (AIP) is present. E. Prostate, left lateral mid, biopsy: - Prostatic adenocarcinoma, Second Mesa score 3+3=6, grade group 1, involving 1 [...] right lateral mid, biopsy: - Prostatic adenocarcinoma, Second Mesa score 3+3=6, grade group 1, involving 1 of 1 core (1 mm, 10%). L.Prostate, right lateral apex, biopsy: - Prostatic adenocarcinoma, Second Mesa score 3+3=6, grade group 1, involving 1 of 1 core (2 mm, 30%). Prostate Cancer Biopsy Summary Number of cores examined: 13 Number of cores positive: 10 Highest Grade Group: 2 Highest % of core involvement: 85 % Cribriform pattern 4: Present, small gland Intraductal carcinoma: Suspicious Gis Mapping Technician tumor block to use for additional studies: [...] lesions in the bone, follow-up is recommended. 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 Has had dysuria and incomplete bladder emptying and was placed on Flomax 0.4 mg which he takes twice daily. Has been having this recently. He has pressure and discomfort in the perineum. Presents today for cystoscopy to ruleout urethral stricture. He reports intermittent pain from radiation. Treated with: - Leuprolide 22.5 mg inj 09/09/22, 12/09/22 - Radiation therapy 11/06/22 - 12/15/22 [7000 cGy/6600 cGy/5040 cGy/28 fx to prostate/SVs/pelvic lymphnodes] Decipher test high-risk - 0.98 PSMA-PET negative [...] left lateral base, biopsy: - Prostatic adenocarcinoma, Second Mesa score 3+4=7, grade group 2, involving 1 of 1 core (6 mm, 85%). - Samantha pattern 4 comprises approximately 10% of the carcinoma. - Small gland cribriform morphology is identified. - Atypical intraductal proliferation (AIP) is present. E. Prostate, left lateral mid, biopsy: - Prostatic adenocarcinoma, Second Mesa score 3+3=6, grade group 1, involving 1 of 1 core (2 mm, 50%) F. Prostate, left lateral apex, biopsy: - Prostatic adenocarcinoma, Second Mesa score 3+3=6, grade group 1, involving 1 of 1 core (1 mm, 30%). G. Prostate, right base, biopsy: - Benign prostate tissue. H. Prostate, right mid, biopsy: - Prostatic adenocarcinoma, Samantha score 3+3=6, grade group 1, involving 2 of 2 cores (1 mm, 30%; 1 mm, 20%) I. Prostate, right apex, biopsy: - Prostatic adenocarcinoma, Second Mesa score 3+3=6, grade group 1, involving 1 [...] 4: Present, small gland Intraductal carcinoma: Suspicious Gis Mapping Technician tumor block to use for additional studies: [...] in the bone, follow-up is recommended. Damaris's [facility] NOTE/ UNIVERSAL PROTOCOL/ SAFETY CHECKLIST Sign In [...] that this documentation has been prepared under thedirection and in the presence of Dr. Michelle Electronically signed, Milady Ordaz, Scrdominiquee I agree with the Chief Complaint, ROS, and Past Histories independently gathered by the clinical support services manager and the remaining scribed note accurately describes my personal service to the patient. Dr. Selwyn Michelle MD documented in this encounterSt. Francis Hospital05-24-2024 Nurse Note* Ruth Quiñones MA - 02/19/2024 2:23 PM EDT UNIVERSAL PROTOCOL / SAFETY CHECKLIST Procedure to [...] Education Session: None Instruction Provided To: Patient Machines Technician Present: not applicable Discipline: Nursing Learning Topic: SURVIVAL SKILLS: Complication Prevention Symptom Management Patient Evaluation: Verbalizes understanding: Yes Supplemental Material Given: Written Material Instructed By Ruth Quiñones MA In Department Urology . [facility] Nurse Note* Ruth Quiñones MA - 02/19/2024 2:23 PM EDT UNIVERSAL PROTOCOL / SAFETY CHECKLIST Procedure to [...] Education Session: None Instruction Provided To: Patient Machines Technician Present: not applicable Discipline: Nursing Learning Topic: SURVIVAL SKILLS: Complication Prevention Symptom Management Patient Evaluation: Verbalizes understanding: Yes Supplemental Material Given: Written Material Instructed By Ruth Quiñones MA In Department Urology . 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 - For decades, has had pain in the spine, shoulders, hands (entire), hips, L knee and feet. Worse after activity. Worst time of day is the evening. - In , started on HCQ 200mg/day by PCP. - at [facility], reports he's unsure whether HCQ has helped. [...] heated tubing & humidity, filters. Lifetime supplies. APIRL: G47.33. ALBUTEROL INHALATION Inhale 1 Inhalation as instructed as needed. hot humid weather lisinopril-hydrochlorothiazide (PRINZIDE,ZESTORETIC) 20-12.5 mg per tablet Take 1 tablet by mouth once daily. modafinil(PROVIGIL 200 MG TAB) Take one(1) tablet daily in the morning. pantoprazole (PROTONIX) 40 mg ORAL TbEC Take one(1) tablet daily. BIPAP Please supply patient with Full face mask, [employer] VIP 7600. No current facility-administered medications for this visit. FAMILY HISTORY Problem Relation Age of Onset Colon Cancer Father mgf other (hyperchol) Father other (cva) Father pgf, mgm other (heart dis) Father pgm Prostate Cancer Maternal Grandfather SOCIAL HISTORY: Lives in [place] with spouse Tobacco use: None Alcohol use: [...] erythema or warmth of any upper or lowerextremity joint. RANGE OF MOTION: Unable to fully [...] 03/05/2012 11/14/2015 Sm Antibody <1.0 AI <0.2 HEALTH CARE CONSULTANT Antibody <1.0 AI <0.2 SSA Antibody <1.0 AI 0.2 SSB Antibody <1.0 AI 1.0 (H) Centromere Ab <1.0 AI <0.2 Scleroderma Ab, IgG <1.0 AI <0.2 Constance 1 Antibody <1.0 AI <0.2 Ribosomal HEALTH CARE CONSULTANT <1.0 AI <0.2 Chromatin Antibody <1.0 AI [...] previously on leupron. With pain of the shoulders,hands (diffuse hand, not localized to one joint/area), [...] eye (wasn't previously advised about need for monitoringeye exams for HCQ). Active synovitis was noted on 01/2024 US of hands/wrists. -Explained the diagnosis in detail including the natural history of the condition, potential for joint damage with ongoing inflammation. -recommended starting SSZ. I explained that it does not increase risk for infection. Potential sideeffects discussed including GI upset, bone marrow suppression, and liver toxicity requiring routinelab monitoring. -also briefly discussed MTX and Arava, [...] the care of your patient. Francisco Davis APRN.ROCKET TEST FIRE WORKER documented in this encounterSt. Francis Hospital05-07-2024 Telephone encounter Note * Telephone Encounter - Mony Weinberg MA - 02/02/2024 12:02 PM EDT Called and assisted patient with scheduling appts with Francisco as requested. oMny Weinberg MA [facility]-07-2024 Miscellaneous Notes* Telephone Encounter - Mony Weinberg MA - 02/02/2024 12:02 PM EDT Called and assisted patient with scheduling appts with Francisco as requested. Mony Weinberg MA * Telephone Encounter - Meche Bunch - 02/02/2024 10:20 AM EDT Patient called and asked if there was something else he can take besides the plaquenil since it effects eyesight. Please advise * Telephone Encounter - Mony Leiva RN - 02/02/2024 8:29 AM EDT Spoke with patient. Message relayed. Agrees with plan. States he has regular Opthalmology appointments, verbalizes understanding of Plaquenil eye exam requirements Mony Leiva RN * Telephone Encounter - Mony Leiva RN - 02/02/2024 8:23 AM EDT ----- Message from Alex Erazo MD sent [...] if any questions. Thanks. documented in this encounterSt. [facility] Telephone encounter Note * Telephone Encounter - Meche Bunch - 02/02/2024 10:20 AM EDT Patient called and asked if there was something else he can take besides the plaquenil since it effects eyesight. Please advise [facility] Telephone encounter Note* Telephone Encounter - Mony Leiva RN - 02/02/2024 8:29 AM EDT Spoke with patient. Message relayed. Agrees with plan. States he has regular Opthalmology appointments, verbalizes understanding of Plaquenil eye exam requirements Mony Leiva RN [facility] Telephone encounter Note* Telephone Encounter - Mony Leiva RN - 02/02/2024 8:23 AM EDT ----- Message from Alex Erazo MD sent [...] Let me know if any questions. Thanks. [facility]24 NoteHNO ID: [id number] Author: AMANDA HORTON MA Service: ? Author Type: [employer] Window Tinter Type: Progress Notes Filed: 01/29/2024 16:04 Note Text: Post Void Residual done on patient with 0 cc residual volume remaining. MD notified. [facility] NoteHNO ID: [id number] Author: ?, ?, ? Service: ? Author Type: ? Type: Progress Notes Filed: 01/29/2024 16:04 Note Text: [facility] PATIENT HISTORY AND PHYSICAL EXAM PATIENT INFO: Sylvie Chiu 73 year old REFERRING M.Cherie: Hussein Ordonez [id number] [facility] [address] CHIEF COMPLAINT: Prostate cancer, LUTS HISTORY: Sylvie Chiu is a 73 year old man with high-intermediate risk prostate cancer, [id number], Stage IVB, GG2, clinical Stage IIB [Second Mesa 3+4=7 (1 core), Samantha 3+3=6 (9 cores) [...] Prostate, left mid, biopsy: - Prostatic adenocarcinoma, Second Mesa score 3+3=6, grade group 1, involving 1 of 1 core (4 mm, 65%). C. Prostate, left apex, biopsy: - Prostatic adenocarcinoma, Samantha score 3+3=6, grade group 1, involving 1 of 1 core (1 mm, 25%). D. Prostate, left lateral base, biopsy: - Prostatic adenocarcinoma, Samantha score 3+4=7, grade group 2, involving 1 of 1 core (6 mm, 85%). - Second Mesa pattern 4 comprises approximately 10% of the [...] Prostate, right apex, biopsy: - Prostatic adenocarcinoma, Second Mesa score 3+3=6, grade group 1, involving 1 [...] 4: Present, small gland Intraductal carcinoma: Suspicious Gis Mapping Technician tumor block to use for additional studies: [...] Right 06/30/2018 Knee replacement, (more content not included)...[id number] History of Present illness Narrative* Amanda Horton MA - 01/29/2024 3:57 PM EDT Post Void Residual done on patient with 0 cc residual volume remaining. MD notified. Amanda Horton MA * Milady Ordaz - 01/29/2024 3:40 PM EDT [facility] FOLLOW-UP PATIENT HISTORY AND PHYSICAL EXAM PATIENT INFO: Sylvie Chiu 73 year old REFERRING M.D.: Hussein Ordonez [id number] [facility] [address] CHIEF COMPLAINT: Prostate cancer, LUTS HISTORY: Sylvie Chiu is a 73 year old man with high-intermediate risk prostate cancer, [id number], Stage IVB, GG2, clinical Stage IIB [Samantha 3+4=7 (1 core), Samantha 3+3=6 (9 cores) (10/ cores+); prostate MRI - enlarged pelvic - concern for inguinal LN/bone metastasis. Most recent PSA was 0.07on 12/10/2023. Follows with radiation oncology. Has had dysuria and incomplete bladder emptying and was placed on Flomax 0.4 mg which he takes twice daily. Has been having this recently. He has pressure and discomfort in the perineum. Treated with: - Leuprolide 22.5 mg inj 09/09/22, 12/09/22 - Radiation therapy 11/06/22 - 12/15/22 [7000 cGy/6600 cGy/5040 cGy/28 fx to prostate/SVs/pelvic lymphnodes] Decipher test high-risk - 0.98 PSMA-PET negative for bone/LN metastasis IPSS- 19 QoL-3 PATHOLOGY: FINAL DIAGNOSIS A. Prostate, left base, biopsy: - Benign fibromuscular stroma; no prostatic glands are present. B. Prostate, left mid, biopsy: - Prostatic adenocarcinoma, Second Mesa score 3+3=6, grade group 1, involving 1 of 1 core (4 mm, 65%). C. Prostate, left apex, biopsy: - Prostatic adenocarcinoma, Samantha score 3+3=6, grade group 1, involving 1 of 1 core (1 mm, 25%). D. Prostate, left lateral base, biopsy: - Prostatic adenocarcinoma, Samantha score 3+4=7, grade group 2, involving 1 of 1 core (6 mm, 85%). - Second Mesa pattern 4 comprises approximately 10% of the carcinoma. - Small gland cribriform morphology is identified. - Atypical intraductal proliferation (AIP) is present. E. Prostate, left lateral mid, biopsy: - Prostatic adenocarcinoma, Second Mesa score 3+3=6, grade group 1, involving 1 of 1 core (2 mm, 50%) F. Prostate, left lateral apex, biopsy: - Prostatic adenocarcinoma, Samantha score 3+3=6, grade group 1, involving 1 of 1 core (1 mm, 30%). G. Prostate, right base, biopsy: - Benign prostate tissue. H. Prostate, right mid, biopsy: - Prostatic adenocarcinoma, Second Mesa score 3+3=6, grade group 1, involving 2 of 2 cores (1 mm, 30%; 1 mm, 20%) I. Prostate, right apex, biopsy: - Prostatic adenocarcinoma, Samantha score 3+3=6, grade group 1, involving 1 of 1 core (3 mm, 50%). J. Prostate, right lateral base, biopsy: - Benign prostate tissue. K. Prostate, right lateral mid, biopsy: - Prostatic adenocarcinoma, Second Mesa score 3+3=6, grade group 1, involving 1 [...] 4: Present, small gland Intraductal carcinoma: Suspicious Gis Mapping Technician tumor block to use for additional studies: [...] old man with high-intermediate risk prostate cancer, [id number], Stage IVB, GG2, clinical Stage IIB [Second Mesa 3+4=7 (1 core), Second Mesa 3+3=6 (9 cores) (/ cores+); prostate MRI [...] cause some of the scar tissue which maybe contributing to his symptoms. Discussed cystoscopy to assess further. Could consider referral toreconstructive urology in the future. In summary, we will start with a cystoscopy to rule out urethral stricture disease. Based on the results we will determine if anything further needs to be done. PLAN: Will plan for office cystoscopy By signing my name below, I, Milady Ordaz, attest that this documentation has been prepared under thedirection and in the presence of Dr. Michelle Electronically signed, Gold Sawyer I agree with the Chief Complaint, ROS, and Past Histories independently gathered by the clinical support services manager and the remaining scribed note accurately describes my personal service to the patient. Dr. Selwyn Michelle MD documented in this encounterSt. [facility] Hospital04-16-2024 Miscellaneous Notes* Telephone Encounter - Ros Cheng RN - 01/12/2024 10:18 AM EDT Called patient back left due to no number listed for his . Orders placed by Dr. Ordonez lab was called by PSS made aware orders entered * Telephone Encounter - Khadijah Waters - 01/12/2024 9:42 AM EDT Patients is calling stating that patient is at [place] right now getting an MRI and she is asking if Dr Ordonez can please put in an order for a urine test because patient is having a lot ofpain and burning when urinating. documented in this encounterSt. Francis Hospital04-16-2024 History of Present illness Narrative* Rashi Barron RN - 01/12/2024 9:20 AM EDT Radiology Service Progress Note DATE OF SERVICE: [...] DATE: January 12, 2024 TIME: 9:31 AM * Shahida Martin RT(R) - 01/12/2024 9:20 AM EDT Radiology Service Progress Note PATIENT NAME: Sylvie Chiu DATE OF SERVICE: January 12, 2024 TIME: 10:21 AM PATIENT IDENTITY VERIFICATION COMPLETED USING TWO (2) IDENTIFIERS: Name and Date of confirmedby patient verbally. FALL SCREENING: Has the patient had 2 falls in the last year or 1 fall with injury or currently using an Ambulatory Assistive Device (Walker, Cane, Wheelchair, Crutches, etc.)? No PATIENT GENDER DATA: Male PATIENT RELEVANT IMPLANT DATA REVIEWED: Yes PATIENT PRESENTS WITH AN IMPLANTABLE OR ATTACHED GREY STOCK RECORDER: No RADIOLOGY DEPARTMENT: MR; Exam(s) Completed: Lower MSK: Pelvis, bilateral Soft tissue pelvis PERIPHERAL IV DATA: Not applicable SIGNED BY: RT Shahram(R) January 12, 2024 10:21 AM documented in this encounterSt. Francis Hospital03-21-2024 Nurse Note* Ros Cheng RN - 12/17/2023 9:28 AM EDT Images from the original note were not included. Radiation Therapy - Nursing Note (Follow-up) PATIENT NAME: Sylvie Chiu PATIENT December 17, 2023 [facility] FACILITY/LOCATION: [place] Reason for visit: Follow up. Subjective Data I am having a lot of trouble with bowels and bladder. I have pelvic pain which has intensified since since my last visit here. Additional Data Do you want to see a Draw Bench Operator Helper? No Difficulty performing or completing routine daily [...] No. Rectal pain: No. Bladder function: urgency, frequency,incomplete emptying. Urinary frequency (D/N): 10 + times /1. Flomax 1-2 every am will get pelvic pain and pressure when he has to urinate of have a bm. Has urgency, hesitancy, double voids and a weak stream PSA lab completed 12-10-23 SIGNED by: Ros Cheng RN documented in this encounterSt. Francis Hospital03-21-2024 History of Present illness Narrative* Hussein Ordonez MD - 12/17/2023 9:00 AM EDT Images from the original note were not included. 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 He finished radiation on 12/15/22 [...] Please supply patient with Full face mask, [employer] VIP [id number]. REVIEW OF SYSTEMS: Arthritic pain Pelvic pressure [...] old man with high-intermediate risk prostate cancer, [id number], GG2, clinical Stage IIB, iPSA 5.5 [Second Mesa 3+4=7 (1 core), Second Mesa 3+3=6 (9 cores) (10/13 cores+); prostate MRI- enlarged pelvic - concern for inguinal LN/bone metastasis, high-risk Decipher test - 0.98; PSMA-PET negative for bone/LN metastasis], s/p: Leuprolide 22.5 mg inj 09/09/22, 12/09/22 Radiation therapy 11/06/22 - 12/15/22 [7000 cGy/6600 cGy/5040 cGy/28 fx to prostate/SVs/pelvic lymph nodes] No evidence of biochemical recurrence. Describes symptoms of urethral stricture; perhaps chronic radiation proctitis. I will arrange for consultation with urology at [facility], gastroenterology ([facility] in [place]) and MRI pelvis ([place]; I will call with results). I will see him again in 6 months with a PSA level. I spent 15 minutes in the visit in counseling / coordination of care. Signed by: Hussein Ordonez MD cc: Rickie Agosto MD documented in this encounterSt. Francis Hospital03-19-2024 Miscellaneous Notes* Telephone Encounter - Mony Weinberg MA - 12/15/2023 12:37 PM EDT Patient has been notified of message below and verbalized understanding. Mony Weinberg MA * Telephone Encounter - Mony Weinberg MA - 12/15/2023 12:36 PM EDT ----- Message from Alex Erazo MD sent [...] your eye doctor for plaquenil testing if theyconfirm they haven't done this in the past year. documented in this encounterSt. Francis Hospital03-19-2024 Miscellaneous Notes* Telephone Encounter - Hussein Lyons - 12/15/2023 9:31 AM EDT PT would like to schedule his MSK SYN appointment in January. Let PT know the [facility] US department doesn'thave the January schedule yet but will call back as soon as the schedule is available to schedule the appointment. * Telephone Encounter - Bridgette Ferguson - 12/14/2023 3:20 PM EDT Called patient on December 14, 2023 at 3:20 PM to schedule their MSK US exam. No answer, left VM, 1st attempt. * Telephone Encounter - Valery Carson PCNA - 12/14/2023 3:02 PM EDT Visit Type: MSK SYN Visit Length: 45, 50 OR 60 MINUTES Order Name/Protocol: US HAND/WRIST SYNOVIAL SCREEN RT+LT; EVAL FOR SYNOVITIS Preferred Provider: N/A Comment: N/A Location: ANY FACILITY Slot held: N/A documented in this encounterSt. Francis Hospital03-18-2024 Miscellaneous Notes* Telephone Encounter - Pricilla Cardenas - 12/14/2023 2:57 PM EDT US HAND/WRIST SYNOVIAL SCREEN LEFT (Order #[id number]) on 12/14/23 US HAND/WRIST SYNOVIAL SCREEN RIGHT (Order #[id number]) on 12/14/23 documented in this encounterSt. Francis Hospital03-18-2024 Instructions* Patient Instructions* Alex Erazo MD - 12/14/2023 2:34 PM EDT A mainstay of treatment for joint, bone, and muscle pain has been a class of medications known as nonsteroidal anti-inflammatory drugs or NSAIDs. Traditional NSAIDs include aspirin, ibuprofen (Advil,Motrin, etc.), naproxen (e.g., Aleve), meloxicam (Mobic), diclofenac, [...] an upset stomach, you can try taking glmq-pcx-yaoscnp omeprazole (ie Prilosec) for stomach protection. If you continue to experience any upset stomach while on NSAIDs, please stop the NSAID and seek medical evaluation. Do not mix NSAIDs; in another words, don't take mor e than one type of NSAID at a time as doing so could increase your chance of possible side effects.Baby aspirin is an exception to this rule [...] pain while on NSAIDs. documented in this encounterSt. Francis Hospital03-18-2024 History of Present illness Narrative* Alex Erazo MD - 12/14/2023 2:17 PM EDT On 12/14/2023, I had the pleasure of seeing Sylvie Chiu at the [facility]. Sylvie Chiu was referred by Dr. Hussein Ordonez for an opinion and advice regarding joint pain. My findings and final recommendations will be communicated to the requesting health care provider by way of the shared medical record for internal providers or letter via the [employer] for external providers. 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 - For decades, has had pain in the spine, shoulders, hands (entire), hips, L knee and feet. Worse after activity. Worst time of day is the evening. - In ', started on HCQ 200mg/day by PCP. - [...] tunnel decomp PAST SURGICAL HISTORY OF lasik moshe.; 5 ops R eye and now blind [...] Please supply patient with Full face mask, [employer] VIP [id number]. No current facility-administered medications for this visit. FAMILY HISTORY Problem Relation Age of Onset Colon Cancer Father mgf other (hyperchol) Father other (cva) Father pgf, mgm other (heart dis) Father pgm Prostate Cancer Maternal Grandfather SOCIAL HISTORY: Lives in [place] with spouse Tobacco use: None Alcohol use: [...] erythema or warmth of any upper or lowerextremity joint. RANGE OF MOTION: Unable to fully close fists bilaterally. SWOLLEN JOINTS/SYNOVITIS: No synovitis of any joint. TENDER JOINTS: None Widespread Pain Index: 10 (0-19) Symptoms Severity Scale: 10 (0-12) WPI>7 and SS Scale>5 OR WPI 3-6 and SS Scale >9 consistent with fibromyalgia LABORATORY: Latest Ref [facility] 09/25/2023 WBC 3.70 - 11.00 k/uL 4.44 [...] 03/05/2012 11/14/2015 Sm Antibody <1.0 AI <0.2 HEALTH CARE CONSULTANT Antibody <1.0 AI <0.2 SSA Antibody <1.0 AI 0.2 SSB Antibody <1.0 AI 1.0 (H) Centromere Ab <1.0 AI <0.2 Scleroderma Ab, IgG <1.0 AI <0.2 Constance 1 Antibody <1.0 AI <0.2 Ribosomal HEALTH CARE CONSULTANT <1.0 AI <0.2 Chromatin Antibody <1.0 AI [...] of prostate cancer previously on leupron. With non- inflammatory pain of the shoulders, hands (diffuse hand, not localized to one joint/area), hips, knee and feet which worsens with activity and is worst by the end of the day. Known osteoarthritis of various areas including the hands and spine. On HCQ 200mg/day per PCP x1 year without much relief, which reportedly was started forthe hands. Of note, he has blindness of one eye (wasn't advised about need for monitoring eye examsfor HCQ). Explained that inflammatory arthritis is not [...] APAP. R/B/A of NSAIDs discussed including potential forGI upset/ulcers, bleeding complications, high blood pressure, kidney dysfunction, liver dysfunctionand contribution to CAD and stroke. Advised not to mix different types of NSAIDs in the same day. Pr inted information on NSAIDs provided for review. 3. [...] which included preparing to see the patient, pmtj-ow-llxn patient care, completing clinical documentation, obtaining and/or reviewing separately obtained history, performing a medically appropriate examination, counseling and educating the pat ient/family/caregiver, ordering medications, tests, or procedures, independently interpreting results (not separately reported), and communicating results to the patient/family/caregiver. documented in this encounterSt. Francis Hospital10-23-2023 History of Present illness Narrative* Stephanie Marie, RT(R) - 07/20/2023 7:30 AM EDT Radiology Service Progress Note PATIENT NAME: Sylvie Chiu MRN: [id number] DATE OF SERVICE: July 20, 2023 TIME: 7:56 AM PATIENT IDENTITY VERIFICATION COMPLETED USING TWO (2) IDENTIFIERS: Name and Date of confirmedby patient verbally. FALL SCREENING: Has the patient had 2 falls in the last year or 1 fall with injury or currently using an Ambulatory Assistive Device (Walker, Cane, Wheelchair, Crutches, etc.)? No PATIENT GENDER DATA: Male PATIENT RELEVANT IMPLANT DATA REVIEWED: Not Applicable RADIOLOGY DEPARTMENT: General X-ray: Exam(s) Completed: Spine X-Ray(s): Lumbar AP / LAT / L5-S1 andSacrum/Coccyx Pelvis X-Ray: Pelvis inlet/outlet PERIPHERAL IV DATA: Not applicable SIGNED BY: RT Radha(Eyal) July 20, 2023 7:56 AM documented in this encounterSt. Francis Hospital10-12-2023 Miscellaneous Notes* Telephone Encounter - Rohini Saab RN - 07/09/2023 12:09 PM EDT Per [place], patient wanted XRays done at [facility] and they cannot all be done in the same department, so the patient opted for the [facility] to schedule vs walk in. documented in this encounterSt. Francis Hospital09-18-2023 Nurse Note* Rohini Saab RN - 06/15/2023 11:53 AM EDT Images from the original note were not included. Radiation Therapy - Nursing Note (Follow-up) PATIENT NAME: Sylvie Chiu PATIENT June 15, 2023 [facility] FACILITY/LOCATION: [place] Reason for visit: Follow up. Subjective Data My energy is low. I am tired all the time and my gut hurts all the time. I have 3, 4, 5 loose stools a day. I don't take the Imodium. I just don't like taking all these pills. Additional Data Do you want to see a Draw Bench Operator Helper? No Difficulty performing or completing routine daily [...] Urinary frequency (D/N): q1 hour/1. No pads. Noburning or blood Takes Flomax 2/day Took 2 doses of Lupron, still + for hot flashes. Refusing further injections. SIGNED by: Rohini Saab RN documented in this encounterSt. Francis Hospital09-18-2023 History of Present illness Narrative* Hussein Ordonez MD - 06/15/2023 9:00 AM EDT Images from the original note were not included. 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 Prostate biopsy on 05/08/22 showed adenocarcinoma, Second Mesa 3+4=7 (1 core), Samantha 3+3=6 (9 cores) [...] supply patient with Full face mask, [employer] [place] VIP [phone]. REVIEW OF SYSTEMS: Energy is [...] old man with high-intermediate risk prostate cancer, [id number], GG2, clinical Stage IIB, iPSA 5.5 [Second Mesa 3+4=7 (1 core), Second Mesa 3+3=6 (9 cores) (10/ cores+); prostate MRI- enlarged pelvic - concern for inguinal LN/bone metastasis, high-risk Decipher test - 0.98; PSMA-PET negative for bone/LN metastasis], s/p: Leuprolide 22.5 mg inj 09/09/22, 12/09/22 Radiation therapy 11/06/22 - 12/15/22 [7000 cGy/6600 cGy/5040 cGy/28 fx to prostate/SVs/pelvic lymph nodes] He is struggling with the residual effects of leuprolide; I recommended he discuss with his primarycare physician looking into meeting with a dietitian [...] with more than 50% of the total zmjh-ta-wejb time of the visit in counseling / coordination of care. Signed by: Hussein Ordonez MD cc: Rickie Agosto MD documented in this encounterSt. Francis Hospital07-14-2023 History of Present illness Narrative* Selwyn Leiva PA-C - 04/10/2023 11:19 AM EDT CHIEF COMPLAINT: Sylvie Chiu is a 73 [...] no audible wheezing, no labored breathing, symmetric thoracicexcursion Neurologic: bilateral deep tendon reflexes are normal [...] results and radiologist's interpretation, available in the [facility] health record. AP pelvis Images were reviewed [...] above. Selwyn Leiva PA-C documented in this encounterSt. Francis Hospital07-14-2023 History of Present illness Narrative* Eileen Partida RT(R) - 04/10/2023 9:00 AM EDT Radiology Service Progress Note PATIENT NAME: Sylvie Chiu MRN: [id number] DATE OF SERVICE: April 10, 2023 TIME: 9:06 AM PATIENT IDENTITY VERIFICATION COMPLETED USING TWO (2) IDENTIFIERS: Name and Date of confirmedby patient verbally. FALL SCREENING: Has the patient [...] 10, 2023 9:06 AM documented in this encounterSt. Francis Hospital06-15-2023 History of Present illness Narrative* Patricia Mims APRN.ROCKET TEST FIRE WORKER - 03/12/2023 12:41 PM EDT Chief Complaint: Established patient follow up History [...] APRN.CNP March 12, 2023 documented in this encounterSt. Francis Hospital05-11-2023 History of Present illness Narrative* Afsaneh Hayes PA-C - 02/05/2023 3:20 PM EDTAssociated Order(s): Small Joint Arthro/Inj: L thumb [facility]MC Post-Procedure Diagnose(s): Thumb pain, right; Primary osteoarthritis of first carpometacarpal joint of left hand Afsaneh Hayes PA-C Department of Orthopaedics Orthopaedics [address] [place] [id number] Dept: [phone] February 05, 2023 CHIEF COMPLAINT: New and [...] is at work. 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 He is right-hand dominant. He doeshave similar discomfort on his right hand but [...] thumb CMC Informed Consent Consent Obtained: Verbal [place] Protocol A moment to CARE was completed. [...] Imaging: IMPRESSION: Degenerative changes. No acute abnormality Resistance Brazer: PSCB Transcribe Date/Time: Feb 07 2023 7:11P [...] Please supply patient with Full face mask, [employer] VIP [id number]. loperamide HCl (IMODIUM A-D ORAL) [...] anxiety) This note was partially generated using [employer] voice recognition system, and there may be some incorrect words, spellings, and punctuation that were not noted in checking the note before saving. Afsaneh Hayes PA-C documented in this encounterSt. Francis Hospital05-11-2023 History of Present illness Narrative* Nisha Maqruez CT - 02/05/2023 2:40 PM EDT Radiology Service Progress Note PATIENT NAME: Sylvie Chiu MRN: [id number] DATE OF SERVICE: February 05, 2023 TIME: 2:49 PM PATIENT IDENTITY VERIFICATION COMPLETED USING TWO (2) IDENTIFIERS: Name and Date of confirmedby patient verbally. FALL SCREENING: Has the patient had 2 falls in the last year or 1 fall with injury or currently using an Ambulatory Assistive Device (Walker, Cane, Wheelchair, Crutches, etc.)? No PATIENT GENDER DATA: Male PATIENT RELEVANT IMPLANT DATA REVIEWED: Not Applicable RADIOLOGY DEPARTMENT: General X-ray: Exam(s) Completed: Upper Extremity X- Ray(s): Hand, left PERIPHERAL IV DATA: Not applicable SIGNED BY: RICARDA Dc February 05, 2023 2:49 PM documented in this encounterSt. Francis Hospital05-11-2023 Miscellaneous Notes* [facility] - Cinthia Kat RT(R) - 02/05/2023 2:40 PM EDT Radiology Service Progress Note PATIENT NAME: Sylvie Chiu MRN: [id number] DATE OF SERVICE: February 05, 2023 TIME: 4:10 PM PATIENT IDENTITY VERIFICATION COMPLETED USING TWO (2) IDENTIFIERS: Name and Date of confirmedby patient verbally. FALL SCREENING: Has the patient had 2 falls in the last year or 1 fall with injury or currently using an Ambulatory Assistive Device (Walker, Cane, Wheelchair, Crutches, etc.)? No PATIENT GENDER DATA: Male PATIENT RELEVANT IMPLANT DATA REVIEWED: Not Applicable RADIOLOGY DEPARTMENT: General X-ray: Exam(s) Completed: Upper Extremity X- Ray(s): Hand, right PERIPHERAL IV DATA: Not applicable SIGNED BY: RT Coral(R) February 05, 2023 4:10 PM documented in this encounterSt. Francis Hospital05-11-2023 Progress note* Allied Health - Cinthia Kat RT(R) - 02/05/2023 2:40 PM EDT Radiology Service Progress Note PATIENT NAME: Sylvie Chiu MRN: [id number] DATE OF SERVICE: February 05, 2023 TIME: 4:10 PM PATIENT IDENTITY VERIFICATION COMPLETED USING TWO (2) IDENTIFIERS: Name and Date of confirmedby patient verbally. FALL SCREENING: Has the patient had 2 falls in the last year or 1 fall with injury or currently using an Ambulatory Assistive Device (Walker, Cane, Wheelchair, Crutches, etc.)? No PATIENT GENDER DATA: Male PATIENT RELEVANT IMPLANT DATA REVIEWED: Not Applicable RADIOLOGY DEPARTMENT: General X-ray: Exam(s) Completed: Upper Extremity X- Ray(s): Hand, right PERIPHERAL IV DATA: Not applicable SIGNED BY: RT Coral(Eyal) February 05, 2023 4:[address] [facility] History of Present illness Narrative* Selwyn Leiva PA-C - 01/30/2023 2:34 PM EDTAssociated Order(s): Large Joint Arthro/Inj: L knee joint Post-Procedure Diagnose(s): Primary osteoarthritis of left knee Sylvie comes in today for a repeat left knee injection. 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 The leftknee is known bone on bone patellofemoral and near bone on bone medially on films from 2021. His last injection was 12/24/21 and seemed to help until recently. Large Joint Arthro/Inj: L knee joint Informed Consent Consent Obtained: Verbal [place] Protocol A moment to CARE was completed. [...] applicable. Selwyn Leiva PA-C documented in this encounterSt. Francis Hospital04-17-2023 Nurse Note* Ros Cheng RN - 01/12/2023 10:28 AM EDT Images from the original note were not included. Radiation Therapy - Nursing Note (Follow-up) PATIENT NAME: Sylvie Chiu PATIENT January 12, 2023 [facility] FACILITY/LOCATION: [place] Reason for visit: Follow up. Subjective Data I have a whole body rash, unknown cause. I saw [employer] PROFILER told to stop Neurontin now arthritis is [...] Data Do you want to see a Draw Bench Operator Helper? No Difficulty performing or completing routine daily [...] No. Rectal pain: No. Bladder function: urgency, frequency.Urinary frequency (D/N): multiple times he reports he is not emptying his bladder /0. Future Appointments Date Time Provider Department Center 03/09/2023 10:00 AM [facility]/12/2023 10:00 AM Rickie Agosto MD [facility] 03/12/2023 10:30 AM [facility] SIGNED by: Ros Cheng RN documented in this encounterSt. Francis Hospital04-17-2023 History of Present illness Narrative* Hussein Ordonez MD - 01/12/2023 10:00 AM EDT Images from the original note were not included. Radiation Oncology - Follow Up Note PATIENT NAME: Sylvie Chiu PATIENT DIAGNOSIS: 72 year old man with high-intermediate risk prostate cancer, [id number], GG2, clinical Stage IIB, iPSA 5.5 [Samantha 3+4=7 (1 core), Second Mesa 3+3=6 (9 cores) (10/ cores+); prostate MRI [...] (1 core), Samantha 3+3=6 (9 cores) (10/ cores+). CT of the pelvis and bone [...] Full face mask, Santana Milton VIP 7600. methylPREDNISolone (MEDROL, JOSE MANUEL,) 4 mg Dose-Pack As instructed per package loperamide HCl (IMODIUM A-D ORAL) Take by mouth. (Patient not taking: Reported on 01/12/2023) celecoxib (CELEBREX) 200 mg capsule Take 200 mg by mouth twice daily. (Patient not taking: Reportedon 01/12/2023) iv contrast (will be provided with [...] old man with high-intermediate risk prostate cancer, [id number], GG2, clinical Stage IIB, iPSA 5.5 [Second Mesa 3+4=7 (1 core), Second Mesa 3+3=6 (9 cores) (10/13 cores+); prostate MRI- enlarged pelvic - concern for inguinal LN/bone metastasis, high-risk Decipher test - 0.98; PSMA-PET negative for bone/LN metastasis], s/p: Leuprolide 22.5 mg inj 09/09/22, 12/09/22 Radiation therapy 11/06/22 - 12/15/22 [7000 cGy/6600 cGy/5040 cGy/28 fx to prostate/SVs/pelvic lymph nodes] Mr. Chiu appears to have had a reaction to amoxicillin (shortness of breath/rash). Medrol Dosepakprescribed. We also discussed using Metamucil to have have more formed daily bowel movements. He may increase Flomax to 0.8 mg total per day, however he is hesitant as he thinks Flomax may be contributing to his rash (I explained that this would be very uncommon). He will see Dr. Agosto in Februaryfor his next Lupron shot; he is hesitant to receive further Lupron injections but will discuss thiswith Dr. Aogsto. I will see him in mid May for follow-up with a PSA prior. Signed by: Hussein Ordonez MD cc: Norma Davies ([facility]) [address] [place] [address] DO Rickie Dean MD documented in this encounterSt. Francis Hospital03-21-2023 History of Present illness Narrative* Hussein Ordonez MD - 12/16/2022 12:00 AM EDT SYLVIE CHIU [id number] 12/16/2022 [facility] Department of Radiation Oncology [facility] RADIATION ONCOLOGY: COMPLETION NOTE DATE OF SIMULATION: 10/23/2022 DATES OF TREATMENT: 11/06/2022 to 12/15/2022 TREATMENT MACHINE: S_Fancy Hands TREATMENT AREA: Pelvis DIAGNOSIS: 72 year old man with high-intermediate risk prostate cancer, [id number], Stage IVB, GG2, clinical Stage IIB, iPSA 5.5 [Second Mesa 3+4=7 (1 core), Samantha 3+3=6 (9 cores) [...] one month. Staff Physician Hussein Ordonez M.D. 37:16 AM Electronically Signed cc: Norma Davies ([facility]) [address] [place] [address] DO Rickie Dean MD documented in this encounterSt. Francis Hospital03-15-2023 History of Present illness Narrative* Hussein Ordonez MD - 12/10/2022 10:45 AM EDT Radiation Oncology - On Treatment Review (OTR) Note PATIENT NAME: Sylvie Chiu PATIENT DIAGNOSIS: 72 year old man with high-intermediate risk prostate cancer, [id number], GG2, clinical Stage IIB, iPSA 5.5 [Second Mesa 3+4=7 (1 core), Second Mesa 3+3=6 (9 cores) (10/13 cores+); prostate MRI [...] have issues with diarrhea; only using imodium bid.Urination D/N 07-09/0-1 (but staying up late), using Flomax bid. Some dysuria. He notes his leg is bigger/warmer/red. PHYSICAL EXAM: KPS: 90 General Appearance: Alert and oriented. No acute distress. IMAGING/LAB RESULTS: L LE US - no DVT, but with superficial thrombophlebitis in the small saphenousvein. PSA 12/05/22 - 0.41 ng/mL TOXICITY ASSESSMENT [...] 12/09/22. Hussein Ordonez MD documented in this encounterSt. Francis Hospital03-15-2023 Nurse Note* Ros Cheng RN - 12/10/2022 10:38 AM EDT Images from the original note were not included. Radiation Therapy - Nursing Note (OTV) PATIENT NAME: Sylvie Chiu PATIENT December 10, 2022 [facility] FACILITY/LOCATION: [place] NURSING NOTE TYPE: PROSTATE - MALE PELVIS Subjective Data I am more tired, still having diarrhea, and frequent urination. The RLE is more swollen, and red this week. Additional Data Do you want to see a Draw Bench Operator Helper? No Difficulty performing or completing routine daily [...] No. Rectal pain: No. Bladder function: urgency, frequency,painful urination, incomplete emptying. Urinary frequency (D/N): >12/0-1. Flomax BID Future Appointments Date Time Provider Department Center 12/11/2022 10:15 AM [facility]ATMENT [facility] 12/12/2022 10:15 AM [facility]REATMENT [facility] 12/15/2022 10:15 AM TREATMENT [facility] 01/12/2023 10:00 AM Hussein Ordonez MD [facility] 03/09/2023 10:00 AM [facility] 03/12/2023 10:00 AM Rickie Agosto MD [facility] 03/12/2023 10:30 AM INJECTION [facility] SIGNED by: Ros Cheng RN documented in this encounterSt. Francis Hospital03-14-2023 History of Present illness Narrative* Patricia Mims APRN.ROCKET TEST FIRE WORKER - 12/09/2022 9:18 AM EDT Chief Complaint: Established patient follow up History [...] - Prostatic adenocarcinoma -Samantha 3+4=7 (1 core), Second Mesa 3+3=6 (9 cores) (07/10 cores+) 05/08/2022 - [...] 18 Wt (!) 148.7 kg (327 lb 14.4oz) SpO2 97% BMI 45.73 kg/m GENERAL: Patient [...] APRN.CNP December 09, 2022 documented in this encounterSt. Francis Hospital03-08-2023 Nurse Note* Ros Cheng RN - 12/03/2022 10:48 AM EST Radiation Therapy - Nursing Note (OTV) PATIENT NAME: Sylvie Chiu PATIENT December 03, 2022 [facility] FACILITY/LOCATION: [place] NURSING NOTE TYPE: PROSTATE - MALE PELVIS Subjective Data I am still having diarrhea and will I have to go I need to get there fast. I am doing 1-2 Imodium aday. The 2 Flomax a day has helped . I had the first time every yesterday morning pelvic cramping. Additional Data Do you want to see a Draw Bench Operator Helper? No Difficulty performing or completing routine daily [...] No. Rectal pain: No. Bladder function: urgency, frequency.Urinary frequency (D/N): -08/28. Flomax 1 in am and 1 in PM Reviewed diet modification due to diarrhea and use of Imodium SIGNED by: Ros Cheng RN documented in this encounterSt. Francis Hospital03-08-2023 History of Present illness Narrative* Hussein Ordonez MD - 12/03/2022 10:45 AM EST Radiation Oncology - On Treatment Review (OTR) Note PATIENT NAME: Sylvie Chiu PATIENT DIAGNOSIS: 72 year old man with high-intermediate risk prostate cancer, [id number], GG2, clinical Stage IIB, iPSA 5.5 [Second Mesa 3+4=7 (1 core), Samantha 3+3=6 (9 cores) [...] but with superficial thrombophlebitis in the small saphenousvein. TOXICITY ASSESSMENT (CTC v4.0): Fatigue:grade 2 - [...] 12/09/22. Hussein Ordonez MD documented in this encounterSt. Francis Hospital03-07-2023 Nurse Note* Ros Cheng RN - 12/02/2022 10:22 AM EST Patient in for his radiation treatment today [...] will be done today. documented in this encounterSt. Francis Hospital03-01-2023 History of Present illness Narrative* Hussein Ordonez MD - 11/26/2022 10:45 AM EST Radiation Oncology - On Treatment Review (OTR) Note PATIENT NAME: Sylvie Chiu PATIENT DIAGNOSIS: 72 year old man with high-intermediate risk prostate cancer, [id number], GG2, clinical Stage IIB, iPSA 5.5 [Samantha [...] 12/09/22. Hussein Ordonez MD documented in this encounterSt. Francis Hospital03-01-2023 Nurse Note* Ros Cheng RN - 11/26/2022 10:25 AM EST Radiation Therapy - Nursing Note (OTV) PATIENT NAME: Sylvie Chiu PATIENT November 26, 2022 [facility] FACILITY/LOCATION: [place] NURSING NOTE TYPE: PROSTATE - MALE PELVIS Subjective Data I started having diarrhea, I have gone 4 times since I got up this morning. I do have slight burning at the start of urination and increased urgency and sometimes will have the urgency and urinate very little Additional Data Do you want to see a Draw Bench Operator Helper? No Difficulty performing or completing routine daily [...] No. Rectal pain: No. Bladder function: urgency, frequency.Urinary frequency (D/N): 0/10-12. Flomax currently 1 a day SIGNED by: Ros Cheng RN documented in this encounterSt. Francis Hospital02-22-2023 Nurse Note* Rohini Saab RN - 11/19/2022 1:21 PM EST Images from the original note were not included. Radiation Therapy - Nursing Note (OTV) PATIENT NAME: Sylvie Chiu PATIENT November 19, 2022 [facility] FACILITY/LOCATION: [place] NURSING NOTE TYPE: PROSTATE - MALE PELVIS Subjective Data I am having 4, 5, 6 bowel movements a day. They are less formed, some looser. I am usually a one and done a day. Additional Data Do you want to see a Draw Bench Operator Helper? No Difficulty performing or completing routine daily [...] No. Rectal pain: No. Bladder function: urgency, frequency,incomplete emptying. Urinary frequency (D/N): 10-12/0. Using [employer] SIGNED by: Rohini Saab RN documented in this encounterSt. Francis Hospital02-22-2023 History of Present illness Narrative* Hussein Ordonez MD - 11/19/2022 10:45 AM EST Radiation Oncology - On Treatment Review (OTR) Note PATIENT NAME: Sylvie Chiu PATIENT DIAGNOSIS: 72 year old man with high-intermediate risk prostate cancer, [id number], GG2, clinical Stage IIB, iPSA 5.5 [Second Mesa 3+4=7 (1 core), Second Mesa 3+3=6 (9 cores) (07/10 cores+); prostate MRI [...] 12/09/22. Hussein Ordonez MD documented in this encounterSt. Francis Hospital02-14-2023 History of Present illness Narrative* Hussein Ordonez MD - 11/11/2022 10:45 AM EST Radiation Oncology - On Treatment Review (OTR) Note PATIENT NAME: Sylvie Chiu PATIENT DIAGNOSIS: 72 year old man with high-intermediate risk prostate cancer, [id number], GG2, clinical Stage IIB, iPSA 5.5 [Second Mesa 3+4=7 (1 core), Samantha 3+3=6 (9 cores) [...] feels weak, +joint pain, +hot flashes. BM daily,no bleeding. Using Flomax every other day. Urination D/N - . On Lisinopril/HCTZ. +Urinary frequency/sensation of incomplete emptying. Occaional start/stop. A.m. hesitency. Stream is variable, nobleeding. PHYSICAL EXAM: KPS: 90 General Appearance: Alert [...] Lupron. Hussein Ordonez MD documented in this encounterSt. Francis Hospital02-14-2023 Nurse Note* Ros Cheng RN - 11/11/2022 10:40 AM EST Radiation Therapy - Nursing Note (OTV) PATIENT NAME: Sylvie Chiu PATIENT November 11, 2022 [facility] FACILITY/LOCATION: [place] NURSING NOTE TYPE: PROSTATE - MALE PELVIS [...] Data Do you want to see a Draw Bench Operator Helper? No Difficulty performing or completing routine daily [...] No. Rectal pain: No. Bladder function: urgency, frequency,incomplete emptying, retention. Urinary frequency (D/N): 10-12/0. Flomax 1 every other day Lupron injections continue SIGNED by: Ros Cheng RN documented in this encounterSt. Francis Hospital02-10-2023 History of Present illness Narrative* CLARITA Oquendo - 11/07/2022 10:41 AM EST SOCIAL WORK Date of Service: Monday November 07, 2022 [facility] Data Base Design Analyst (SW) Rohini Cody met with Sylvie Chiu after his second radiation treatment to complete the initial social work assessment. Sylvie has been diagnosed with prostate cancer. SW introduced herself and reviewed [facility] supportive services, community transportation, and copay assistance if needed. SW provided the Patient Services sheet, the Coping and Distress handout, and the Cancer Answer Line. SW also provided information on [facility], and the [facility]. Sylvie reported that he has been coping well. SW encouraged him to call [phone] if psychosocial needs arise. At this time, social work service is declined/deferred based on: he is not interested. Please re-consult social work if any other psychosocial needs arise. PLAN: Follow up on an as needed basis CLARITA Oquendo documented in this encounterSt. Francis Hospital01-26-2023 History of Present illness Narrative* Hussein Ordonez MD - 10/23/2022 12:00 AM EST SYLVIE CHIU [id number] 10/23/2022 [facility] Department of Radiation Oncology [facility] RADIATION ONCOLOGY SIMULATION NOTE DATE OF SIMULATION: 10/23/2022 MACHINE: Elton Digital CT DIAGNOSIS: Malignant neoplasm of prostate AREA: [...] Ordonez M.D. 33:21 PM documented in this encounterSt. Francis Hospital12-30-2022 Miscellaneous Notes* Telephone Encounter - Jose Gilbert - 09/26/2022 11:08 AM EST 1st-time treatment report. The patient is currently being seen for a non- oncology regimen. No navigator services are needed at this time. documented in this encounterSt. Francis Hospital12-16-2022 Instructions* Patient Instructions* Flynn Julian PA-C - 09/12/2022 10:26 AM EST Call [phone] to schedule your Right shoulder MRI After you have the imaging appointment call [phone] to schedule a phone call appointment with me. This appointment should be at least 2 days after the imaging is done in order to review the results and coordinate care. (Example: If MRI is October 07, make an appointment with me on the or later to discuss results). documented in this encounterSt. Francis Hospital12-16-2022 History of Present illness Narrative* Flynn Julian PA-C - 09/12/2022 10:04 AM EST CHIEF COMPLAINT: Sylvie Chiu is a 72 [...] no audible wheezing, no labored breathing, symmetric thoracicexcursion Musculoskeletal Examination: Examination of the right shoulder: [...] results and radiologist's interpretation, available in the [facility] health record. Images were reviewed with the patient/family members in the office today. My personal interpretation of the performed imaging is chronic degenerative changes. CLINICAL IMPRESSION / ASSESSMENT: (M67.911) Dysfunction of right rotator cuff (primary encounter diagnosis) RECOMMENDATION / PLAN: Sylvie's exam is clinically concerning for rotator cuff tear or severe tendinopathy/bursitis. He haspassive range of motion is greater than his active range of motion however almost all movement and testing of the shoulder causes discomfort. He has had previous issues with rotator cuff tears in thepast and has required surgery. He states he is unable to sleep due to the discomfort as well as anymovements of the shoulder cause pain. When asking him to flex at the shoulder he is able to lift toapproximately 60 degrees and then starts leaning back [...] prevent frozen shoulder or other complications while wewait for MRI. He will make a phone [...] which included preparing to see the patient, [id number] patient care, completing clinical documentation, performing a medically appropriate examination, counseling and educating the patient/family/caregiver, ordering medications, tests, or p rocedures, and communicating results to the patient/family/caregiver. Flynn Julian PA-C, MPAS documented in this encounterSt. Francis Hospital12-16-2022 History of Present illness Narrative* Noble Bourne RT(R) - 09/12/2022 9:30 AM EST Radiology Service Progress Note PATIENT NAME: Sylvie Chiu DATE OF SERVICE: September 12, 2022 TIME: 9:28 AM PATIENT IDENTITY VERIFICATION COMPLETED USING TWO (2) IDENTIFIERS: Name and Date of confirmedby patient verbally. FALL SCREENING: Has the patient had 2 falls in the last year or 1 fall with injury or currently using an Ambulatory Assistive Device (Walker, Cane, Wheelchair, Crutches, etc.)? No PATIENT GENDER DATA: Male PATIENT RELEVANT IMPLANT DATA REVIEWED: Not Applicable RADIOLOGY DEPARTMENT: General X-ray: Exam(s) Completed: Upper Extremity X- Ray(s): Shoulder, AP / TRUE AP / AXILLARY right PERIPHERAL IV DATA: Not applicable SIGNED BY: RT Tri(R) September 12, 2022 9:28 AM documented in this encounterSt. Francis Hospital12-08-2022 History of Present illness Narrative* Vazquez Page DO - 09/04/2022 12:19 PM EST Images from the original note were not included. [facility] UROLOGY LOCATION: ESTABLISHED PATIENT PATIENT INFO: Sylvie Chiu 72 year old Chief Complaint: Prostate Cancer HPI 72 year old man with high-intermediate risk prostate cancer, [id number], Stage IVB, GG2, clinical Stage IIB [Samantha 3+4=7 (1 core), Second Mesa 3+3=6 (9 cores) (10/13 cores+); prostate MRI - enlarged pelvic - concern for inguinal LN/bone metastasis, high-risk Decipher test - 0.98; PSMA-PET negative forbone/LN metastasis] Met with rad onc and med [...] Prostate, left apex, biopsy: - Prostatic adenocarcinoma, Second Mesa score 3+3=6, grade group 1, involving 1 of 1 core (1 mm, 25%). D. Prostate, left lateral base, biopsy: - Prostatic adenocarcinoma, Second Mesa score 3+4=7, grade group 2, involving 1 of 1 core (6 mm, 85%). - Second Mesa pattern 4 comprises approximately 10% of the carcinoma. - Small gland cribriform morphology is identified. - Atypical intraductal proliferation (AIP) is present. E. Prostate, left lateral mid, biopsy: - Prostatic adenocarcinoma, Second Mesa score 3+3=6, grade group 1, involving 1 [...] right lateral apex, biopsy: - Prostatic adenocarcinoma, Second Mesa score 3+3=6, grade group 1, involving 1 of 1 core (2 mm, 30%). Prostate Cancer Biopsy Summary Number of cores examined: 13 Number of cores positive: 10 Highest Grade Group: 2 Highest % of core involvement: 85 % Cribriform pattern 4: Present, small gland Intraductal carcinoma: Suspicious Gis Mapping Technician tumor block to use for additional studies: [...] 60.9 Lymph% (%) Date Value 10/04/2021 29.0 Bledsoe% (%) Date Value 10/04/2021 6.7 Eosin% (%) Date Value 10/04/2021 2.4 Baso% (%) Date Value 10/04/2021 1.0 Abs Neut (ANC) (k/uL) Date Value 10/04/2021 4.06 Abs Lym (X10-3/UL) Date Value 03/22/2010 1.6 Abs Bledsoe (k/uL) Date Value 10/04/2021 0.45 Abs Eosin [...] NM PET/CT PROSTATE WHOLE BODY IMAGING (Order [id number]) Patient Info Patient Name Sex Sylvie Chiu ([id number]) Male 1950 08/07/2022 10:44 AM - Radiology, [...] is recommended. MRI PROSTATE WO/W IVCON (Order [id number]) Patient Info Patient Name Sex Sylvie Dumont ([id number]) Male 1950 07/21/2022 11:06 AM - Radiology, [...] CT Scan: CT PELVIS W IVCON (Order [id number]) Patient Info Patient Name Sex Sylvie Dumont ([id number]) Male 1950 06/09/2022 4:32 PM - Radiology, Oru In Impression IMPRESSION: No acute process is seen. Sclerotic bone densities, as described, possibly bone islands, metastatic disease not excluded. Bone Scan: NM BONE WHOLE BODY (Order [id number]) Patient Info Patient Name Sylvie Buckley ([id number]) [...] Please supply patient with Full face mask, [employer] VIP 7600. tamsulosin (FLOMAX) 0.4 mg Take [...] appearing, alert, in no acute distress, and well- hydrated, well nourished Skin: Skin color, texture, turgor [...] and possible bone lesions. Dr. Ordonez in [place] has met with patient. All studies reviewed. Decipher High Risk Options reviewed. Proceed to ADT + IMRT with Dr. Ordonez Obtain approval for Lupron. I spent 30 minutes in the visit, with more than 50% of the total [id number] time of the visit in counseling / coordination of care. Vazquez Page DO JYOTHI documented in this encounterSt. Francis Hospital11-14-2022 History of Present illness Narrative* Rickie Agosto MD - 08/11/2022 3:42 PM EST HISTORY OF PRESENT ILLNESS: Sylvie Chiu is a 72 year old male recent dx prostate cancer, here todiscuss concurrent ADT with RT. He is still debating whether to have surgery or not. Reviewed his scans. CLINICAL IMPRESSION: [id number] prostate cancer, high risk on Decipher RECOMMENDATION/PLAN: [...] Please supply patient with Full face mask, [employer] VIP 7600. REVIEW OF SYSTEMS: GENERAL: No fever, night sweats, weight loss or malaise. All other reviewed and negative other than HPI. PHYSICAL EXAMINATION: VITAL SIGNS: BP 144/76[right arm[ Pulse 73 Temp 98 Resp 16[room air at rest[ Ht 5' 10.945[verified with DH,UPPER MARKER[ (1.80m) Wt 326 lb (147.9kg) SpO2 97% BMI 45.54 kg/(m^2). GENERAL APPEARANCE: Well appearing, in no acute distress, alert and oriented x3, well-hydrated, well nourished. I spent a total of 45 minutes on the date of the service which included preparing to see the patient, [id number] patient care, completing clinical documentation, obtaining and/or reviewing separately obtained history, counseling and educating the patient/family/caregiver, communicating with other HCPs (not separately reported), independently interpreting results (not separately reported), and communicating results to the patient/family/caregiver. Electronically Signed: Rickie Agosto MD August 11, 2022 3:42 PM documented in this encounterSt. Francis Hospital11-14-2022 Nurse Note* Ros Cheng RN - 08/11/2022 2:14 PM EST Images from the original note were not included. Radiation Therapy - Nursing Note (Follow-up) PATIENT NAME: Sylvie Chiu PATIENT August 11, 2022 [facility] FACILITY/LOCATION: [place] Reason for visit: Follow up to discuss treatment options. Subjective Data I am here to further discuss recommended treatment after the completion of all my scans. I just sawDr. Agosto and he said 2 years of the Lupron with radiation treatments. I am unsure of what to do. Additional Data Do you want to see a Draw Bench Operator Helper? No Difficulty performing or completing routine daily [...] by: Ros Cheng RN documented in this encounterSt. [facility] History of Present illness Narrative* Hussein Ordonez MD - 08/11/2022 1:46 PM EST Images from the original note were not included. Radiation Oncology - Follow Up Note PATIENT NAME: Sylvie Chiu PATIENT DIAGNOSIS: 72 year old man with high-intermediate risk prostate cancer, [id number], Stage IVB, GG2, clinical Stage IIB [Samantha 3+4=7 (1 core), Second Mesa 3+3=6 (9 cores) (10/13 cores+); prostate MRI - enlarged pelvic - concern for inguinal LN/bone metastasis, high-risk Decipher test - 0.98; PSMA-PET negative for bone/LN metastasis] INTERVAL HISTORY: Mr. Chiu has a history of BPH managed with tamsulosin. He is noted to have an elevated PSA of 6.29 ng/mL on 10/18/2021. Repeat PSA on 06/04/2022 was 5.5 ng/mL. No prostate nodularitywas present on MANJU. Prostate biopsy on 05/08/22 showed adenocarcinoma, Second Mesa 3+4=7 (1 core), Samantha 3+3=6 (9 cores) [...] supply patient with Full face mask, Santana [place] VIP 7600. PHYSICAL EXAM: KPS: 80 General Appearance: Obese man. Alert and oriented. No acute distress. Rectal exam is deferred. ASSESSMENT/PLAN: 72 year old man with high-intermediate risk prostate cancer, [id number], Stage IVB,GG2, clinical Stage IIB [Second Mesa 3+4=7 (1 core), Second Mesa 3+3=6 (9 cores) (07/10 cores+); prostate MRI [...] (apical extension displacing neurovascular bundle), I am concernedof his ability to tolerate surgery and have [...] by: Hussein Ordonez MD cc: Norma Davies ([facility]) [address] [place] [address] DO Rickie Dean MD documented in this encounterSt. [facility]22 NoteHNO ID: [id number] Author: RT Ronen(R) Service: Radiology Author Type: [...] NM INJECT: PET/CT BODY SCAN. 10 mCi U27-MDVC. No other medications given.. ADMINISTRATION TIME: 0758 JM PATIENT DISCHARGED TO: Ambulatory patient, left [place] department area. A Diagnostic radioactive procedure has taken place, with no further precautions necessary other than routine body substance precautions. More information regarding radiation safety can be found using this link: [email or web address]%[email or web address] SIGNATURE: RT Ronen(R) PATIENT NAME: Sylvie Chiu DATE: August 07, 2022 TIME: 8:13 AM PAGER/CONTACT #:[facility]11-01-2022 NoteHNO ID: [id number] Author: Vazquez Page, DO Service: ? Author Type: Physician Type: Progress Notes Filed: 07/29/2022 1:57 PM Note Text: [facility] LOCATION: [address] [place] [address] ESTABLISHED PATIENT PATIENT INFO: Sylvie R Cutlip 72 year old Chief Complaint: Prostate Cancer [...] Prostate, left mid, biopsy: - Prostatic adenocarcinoma, Second Mesa score 3+3=6, grade group 1, involving 1 of 1 core (4 mm, 65%). C. Prostate, left apex, biopsy: - Prostatic adenocarcinoma, Samantha score 3+3=6, grade group 1, involving 1 of 1 core (1 mm, 25%). D. Prostate, left lateral base, biopsy: - Prostatic adenocarcinoma, Second Mesa score 3+4=7, grade group 2, involving 1 of 1 core (6 mm, 85%). - Second Mesa pattern 4 comprises approximately 10% of the carcinoma. - Small gland cribriform morphology is identified. - Atypical intraductal proliferation (AIP) is present. E. Prostate, left lateral mid, biopsy: - Prostatic adenocarcinoma, Second Mesa score 3+3=6, grade group 1, involving 1 of 1 core (2 mm, 50%). F. Prostate, left lateral apex, biopsy: - Prostatic adenocarcinoma, Second Mesa score 3+3=6, grade group 1, involving 1 of 1 core (1 mm, 30%). G. Prostate, right base, biopsy: - Benign prostate tissue. H. Prostate, right mid, biopsy: - Prostatic adenocarcinoma, Second Mesa score 3+3=6, grade group 1, involving 2 of 2 cores (1 mm, 30%; 1 mm, 20%) I. Prostate, right apex, biopsy: - Prostatic adenocarcinoma, Second Mesa score 3+3=6, grade group 1, involving 1 of 1 core (3 mm, 50%). J. Prostate, right lateral base, biopsy: - Benign prostate tissue. K. Prostate, right lateral mid, biopsy: - Prostatic adenocarcinoma, Second Mesa score 3+3=6, grade group 1, involving 1 of 1 core (1 mm, 10%). L.Prostate, right lateral apex, biopsy: - Prostatic adenocarcinoma, Second Mesa score 3+3=6, grade group 1, involving 1 of 1 core (2 mm, 30%). Prostate Cancer Biopsy Summary Number of cores examined: 13 Number of cores positive: 10 Highest Grade Group: 2 Highest % of core involvement: 85 % Cribriform pattern 4: Present, small gland Intraductal carcinoma: Suspicious Gis Mapping Technician tumor block to use for additional studies: [...] 60.9 Lymph% (%) Date Value 10/04/2021 29.0 Bledsoe% (%) Date Value 10/04/2021 6.7 Eosin% (%) Date Value 10/04/2021 2.4 Baso% (%) Date Value 10/04/2021 1.0 Abs Neut (ANC) (k/uL) Date Value 10/04/2021 4.06 Abs Lym (X10-3/UL) Date Value 03/22/2010 1.6 Abs Bledsoe (k/uL) Date Value 10/04/2021 0.45 Abs Eosin [...] 11/21/2021 IMAGING: MRI PROSTATE WO/W IVCON (Order [id number]) Patient Info Patient Name Sex Sylvie Dumont ([id number]) Male 1950 07/21/2022 11:06 AM - Radiology, Oru In Impression IMPRESSION: 1. Large lesion seen left peripheral zone consistent with clinically significant prostate carcinoma (PIRADS 5). It bulges the capsule and compresses the adjacent neurovascular bundle. 2. Enlarged pelvic l (more content not included)...[facility] 07-29-2022 History of Present illness Narrative* Vazquez Page DO - 07/29/2022 1:39 PM EDT Images from the original note were not included. [facility] LOCATION: [address] [place] [address] ESTABLISHED PATIENT PATIENT INFO: Sylvie Chiu 72 [...] Prostate, left apex, biopsy: - Prostatic adenocarcinoma, Second Mesa score 3+3=6, grade group 1, involving 1 of 1 core (1 mm, 25%). D. Prostate, left lateral base, biopsy: - Prostatic adenocarcinoma, Second Mesa score 3+4=7, grade group 2, involving 1 of 1 core (6 mm, 85%). - Second Mesa pattern 4 comprises approximately 10% of the [...] Prostate, right apex, biopsy: - Prostatic adenocarcinoma, Second Mesa score 3+3=6, grade group 1, involving 1 [...] 4: Present, small gland Intraductal carcinoma: Suspicious Gis Mapping Technician tumor block to use for additional studies: [...] 60.9 Lymph% (%) Date Value 10/04/2021 29.0 Bledsoe% (%) Date Value 10/04/2021 6.7 Eosin% (%) Date Value 10/04/2021 2.4 Baso% (%) Date Value 10/04/2021 1.0 Abs Neut (ANC) (k/uL) Date Value 10/04/2021 4.06 Abs Lym (X10-3/UL) Date Value 03/22/2010 1.6 Abs Bledsoe (k/uL) Date Value 10/04/2021 0.45 Abs Eosin [...] 11/21/2021 IMAGING: MRI PROSTATE WO/W IVCON (Order [id number]) Patient Info Patient Name Sex Sylvie Dumont ([id number]) Male 1950 07/21/2022 11:06 AM - Radiology, [...] CT Scan: CT PELVIS W IVCON (Order [id number]) Patient Info Patient Name Sex Sylvie Dumont ([id number]) Male 1950 06/09/2022 4:32 PM - Radiology, Oru In Impression IMPRESSION: No acute process is seen. Sclerotic bone densities, as described, possibly bone islands, metastatic disease not excluded. Bone Scan: NM BONE WHOLE BODY (Order [id number]) Patient Info Patient Name Sylvie Buckley ([id number]) [...] Please supply patient with Full face mask, [place] VIP 7600. Does the patient take any [...] appearing, alert, in no acute distress, and well- hydrated, well nourished Skin: Skin color, texture, turgor normal, no suspicious rashes or lesions Head: Normocephalic, no masses, lesions, tenderness or abnormalities Abdomen: Normal abdominal exam, Abdomen soft, non-tender. Bowel sounds normal. No masses, organomegaly Genitourinary: MALE EXAM: Exam NOT Indicated PVR: NA IMPRESSION/PLAN: Second Mesa 7/6 Prostate Cancer Pathology reviewed. PSA 5.5 CT and bone scan negative. MRI prostate now with LAD and possible bone lesions. Dr. Ordonez in [place] has met with patient and PSMA PET ordered and pending. Decipher High Risk Will talk to patient after PSMA PET. Options reviewed. I spent 30 minutes in the visit, with more than 50% of the total uktn-mn-xbbp time of the visit in counseling / coordination of care. Vazquez Page DO MBA documented in this encounterSt. [facility] Hospital10-[facility]-2022 NoteHNO ID: [id number] Author: RT Jamari(R) Service: Radiology Author Type: [...] DEPARTMENT: MR; Exam(s) Completed: Body: Prostate SIGNATURE: Josafat Long, (R) PATIENT NAME: Sylvie Chiu DATE: July 17, 2022 TIME: 9:31 [facility]10-17-2022 Miscellaneous Notes* Telephone Encounter - Kamilah Morales RN - 07/14/2022 4:08 PM EDT JACK 06/19/[address] Page JACK 11/07/[address] Lancaster NOV 07/29/[address] Page documented in this encounterSt. [facility] Hospital09-27-2022 Nurse Note* Ros Cheng RN - 06/24/2022 1:38 PM EDT Images from the original note were not included. Radiation Therapy - Nursing Note (Consult) PATIENT NAME: Sylvie Chiu PATIENT June 24, 2022 [facility] FACILITY/LOCATION: [place] Chief Complaint: Prostate cancer Reason for visit: Consult. Referring physician: Internal provider Dr. Page Subjective Data: I have a lot of questions about the treatment types. Additional Data Do you want to see a Draw Bench Operator Helper? No Are you interested in information about [...] habits, blood in the stool, and daily BMhas had colonoscopy h/o polyps GENITOURINARY: frequency day 4-5/night 0, difficulty starting a stream first am void until he takeshis Flomax in Morning , denies leakage or [...] home? 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 Yes - A person with a Durable Power of [employer] Member Other Ranks for Healthcare (DPOA-H) has been appointed - Yes There is a living will - Yes Assessed and policy reviewed. PATIENT EDUCATION: Topic: Radiation This education session included the patient and . Prior to initiation, barriers to learning andlimitations were assessed. Readiness to learn: Cognitive ability: [...] by: Ros Cheng RN documented in this encounterSt. [facility] Hospital09-27-2022 History of Present illness Narrative* Hussein Ordonez MD - 06/24/2022 1:23 PM EDT Radiation Oncology - Prostate Cancer New Patient/Consult Note PATIENT NAME: Sylvie Chiu PATIENT REQUESTING PROVIDER: Vazquez Page DO DIAGNOSIS: 72 year old man with high-intermediate risk prostate cancer, [id number], GG2, clinical Stage IIB [Second Mesa 3+4=7 (1 core), Samantha 3+3=6 (9 cores) (10/13 cores+); prostate MRI and Decipher test pending] HPI: 72 year old male with prostate adenocarcinoma who presents for an opinion regarding the role of radiation therapy in the management of the patient's disease. Final recommendations will be communicated back to the requesting physician by way of the shared medical record, or letter to requestingphysician via US mail. Mr. Chiu has a history of BPH managed with tamsulosin. He is noted to have an elevated PSA of 6.29 ng/mL on 10/18/2021. Repeat PSA on 06/04/2022 was 5.5 ng/mL. No prostate nodularity was present on MANJU. Prostate biopsy on 05/08/22 showed adenocarcinoma, Samantha 3+7=7 (1 core), Second Mesa 3+3=6 (9 cores) (10/13 cores+). CT of [...] supply patient with Full face mask, Santana [place] VIP 7600. iv contrast (will be provided [...] week Drug use: No Occupation: Retired Residence: [place], [place] REVIEW OF SYSTEMS: GENERAL: Negative for weight loss, fevers, chills, or night sweats. 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 Negative for suddenvision or hearing changes. NECK: Negative for masses [...] Pain of Right Knee Bmi 40.0-44.9, Adult ([facility]) ASSESSMENT/PLAN: 72 year old man with high-intermediate risk prostate cancer, [id number], GG2, clinical Stage IIB [Second Mesa 3+4=7 (1 core), Samantha 3+3=6 (9 cores) [...] depending on Decipher test. Possible enrollment to [facility] GU010 will be considered (depending on eligibility and interest). Approximately 60 minutes were spent with the patient, >50% of which was spent on treatment counseling. Signed by: Hussein Ordonez MD documented in this encounterSt. Francis Hospital09-22-2022 History of Present illness Narrative* Vazquez Page DO - 06/19/2022 9:35 AM EDT Images from the original note were not included. [facility] LOCATION: [address] [place] [address] ESTABLISHED PATIENT PATIENT INFO: Sylvie Chiu 72 [...] Prostate, left apex, biopsy: - Prostatic adenocarcinoma, Second Mesa score 3+3=6, grade group 1, involving 1 of 1 core (1 mm, 25%). D. Prostate, left lateral base, biopsy: - Prostatic adenocarcinoma, Samantha score 3+4=7, grade group 2, involving 1 of 1 core (6 mm, 85%). - Samantha pattern 4 comprises approximately 10% of the carcinoma. - Small gland cribriform morphology is identified. - Atypical intraductal proliferation (AIP) is present. E. Prostate, left lateral mid, biopsy: - Prostatic adenocarcinoma, Second Mesa score 3+3=6, grade group 1, involving 1 of 1 core (2 mm, 50%). F. Prostate, left lateral apex, biopsy: - Prostatic adenocarcinoma, Samantha score 3+3=6, grade group 1, involving 1 of 1 core (1 mm, 30%). G. Prostate, right base, biopsy: - Benign prostate tissue. H. Prostate, right mid, biopsy: - Prostatic adenocarcinoma, Second Mesa score 3+3=6, grade group 1, involving 2 of 2 cores (1 mm, 30%; 1 mm, 20%) I. Prostate, right apex, biopsy: - Prostatic adenocarcinoma, Second Mesa score 3+3=6, grade group 1, involving 1 of 1 core (3 mm, 50%). J. Prostate, right lateral base, biopsy: - Benign prostate tissue. K. Prostate, right lateral mid, biopsy: - Prostatic adenocarcinoma, Second Mesa score 3+3=6, grade group 1, involving 1 [...] 4: Present, small gland Intraductal carcinoma: Suspicious Gis Mapping Technician tumor block to use for additional studies: [...] 60.9 Lymph% (%) Date Value 10/04/2021 29.0 Bledsoe% (%) Date Value 10/04/2021 6.7 Eosin% (%) Date Value 10/04/2021 2.4 Baso% (%) Date Value 10/04/2021 1.0 Abs Neut (ANC) (k/uL) Date Value 10/04/2021 4.06 Abs Lym (X10-3/UL) Date Value 03/22/2010 1.6 Abs Bledsoe (k/uL) Date Value 10/04/2021 0.45 Abs Eosin [...] CT Scan: CT PELVIS W IVCON (Order [id number]) Patient Info Patient Name Sex Sylvie Dumont ([id number]) Male 1950 06/09/2022 4:32 PM - Radiology, Oru In Impression IMPRESSION: No acute process is seen. Sclerotic bone densities, as described, possibly bone islands, metastatic disease not excluded. Bone Scan: NM BONE WHOLE BODY (Order [id number]) Patient Info Patient Name Sex Sylvie Dumont [...] Full face mask, Santana [place] VIP 7600. methylPREDNISolone (MEDROL, JOSE MANUEL,) 4 [...] appearing, alert, in no acute distress, and well- hydrated, well nourished Skin: Skin color, texture, turgor normal, no suspicious rashes or lesions Head: Normocephalic, no masses, lesions, tenderness or abnormalities Abdomen: Normal abdominal exam, Abdomen soft, non-tender. Bowel sounds normal. No masses, organomegaly Genitourinary: MALE EXAM: Exam NOT Indicated PVR: NA IMPRESSION/PLAN: Second Mesa 7/6 Prostate Cancer Pathology reviewed. PSA 5.5 CT and bone scan negative. Options reviewed. Will meet with Dr. Ordonez in [place] Considering surveillance, check Decipher and MRI prostate. I spent 30 minutes in the visit, with more than 50% of the total xyvw-dw-evqt time of the visit in counseling / coordination of care. Vazquez Page DO JYOTHI documented in this encounterSt. [facility] Hospital09-15-2022 Miscellaneous Notes* Telephone Encounter - Vazquez Page DO - 06/12/2022 11:02 AM EDT There is no cancer on the bone scan or CT scan. We can move appointment up to discuss options if hewants documented in this encounterSt. [facility] Hospital09-12-2022 History of Present illness Narrative* CURT Trivedi - 06/09/2022 9:00 AM EDT RADIOLOGY SERVICE PROGRESS NOTE SERVICE DATE: 06/09/2022 [...] creatinine assay has traceable calibration to isotope dilution- mass spectrometry. Refer to KDIGO guidelines for clinical interpretation. In patients with unstable renal function, e.g. those with acute kidney injury, the eGFRmay not accurately reflect actual GFR. eGFR- Date [...] information regarding radiation safety can be found usingthis link: [email or web address] 20Diagnostic%20Nuclear%20Medicine%20Procedures.pdf SIGNATURE: CURT Trivedi PATIENT NAME: Sylvie Chiu DATE: June 09, 2022 MRN: [id number] TIME: 9:23 AM PAGER/CONTACT #: documented in this encounterSt. Francis Hospital08-29-2022 Miscellaneous Notes* Telephone Encounter - Vazquez Page DO - 05/26/2022 6:42 PM EDT This is all presumed stage 1 until we receive results from the bone scan and CT scan. documented in this encounterSt. Francis Hospital08-22-2022 Miscellaneous Notes* Telephone Encounter - Ann Aguirre RN - 05/19/2022 11:22 AM EDT Please put in orders and I'll get him assisted. Thanks. * Telephone Encounter - Ann Aguirre RN - 05/19/2022 11:11 AM EDT ----- Message from Vazquez Page DO sent at 05/19/2022 1:36 AM EDT ----- Prostate cancer found. Needs CT and bone scan - then appt with me documented in this encounterSt. Francis Hospital06-03-2022 Miscellaneous Notes* Telephone Encounter - Simona Bermudez - 02/28/2022 9:53 AM EDT Patient phones requesting refills as follows: PATIENT STATES HE IS OUT OF MEDICATION FOR THE WEEKEND. Pending Prescriptions Disp Refills TAMSULOSIN 0.4 MG CAPSULE 30 capsule 2 Sig: Take 1 capsule by mouth once daily. 30 minutes after meal DAVID: No Please review and advise. Simona Bermudez documented in this encounterSt. Francis Hospital03-29-2022 History of Present illness Narrative* James Barnes APRN.[facility] - 12/24/2021 8:56 AM EDT Associated Order(s): Large Joint Arthro/Inj: L knee [...] knee joint Informed Consent Consent Obtained: Verbal [place] Protocol A moment to CARE was completed. [...] 24, 2021 8:59 AM documented in this encounterSt. Francis Hospital03-29-2022 History of Present illness Narrative* RICARDA Dc - 12/24/2021 7:30 AM EDT Radiology Service Progress Note PATIENT NAME: Sylvie Chiu MRN: [id number] DATE OF SERVICE: December 24, 2021 TIME: 7:35 AM PATIENT IDENTITY VERIFICATION COMPLETED USING TWO (2) IDENTIFIERS: Name and Date of confirmedby patient verbally. FALL SCREENING: Has the patient had 2 falls in the last year or 1 fall with injury or currently using an Ambulatory Assistive Device (Walker, Cane, Wheelchair, Crutches, etc.)? No PATIENT GENDER DATA: Male PATIENT RELEVANT IMPLANT DATA REVIEWED: Not Applicable RADIOLOGY DEPARTMENT: General X-ray: Exam(s) Completed: Lower Extremity X- Ray(s): Knee, AP / Lat / Tunne / Merchant Left and Wt. Bearing PERIPHERAL IV DATA: Not applicable SIGNED BY: RICARDA Dc December 24, 2021 7:35 AM documented in this encounterSt. [facility] Hospital09-11-2018 History of Past illness Narrative* Problem Noted Date Resolved Date Primary localized osteoarthritis of right knee 0 06/08/2018 07/01/2018 Overview: Added automatically from request for surgery [id number] Pneumonia 10/31/2016 06/23/2018 Fever 10/29/2016 11/02/2016 Hemicrania [...] of this encounter (statuses as of 12/24/2021) [facility] of [facility] illness Narrative* Problem Noted Date Resolved Date Primary localized osteoarthritis of right knee 0 06/08/2018 07/01/2018 Overview: Added automatically from request for surgery [id number] Pneumonia 10/31/2016 06/23/2018 Fever 10/29/2016 11/02/2016 Hemicrania [...] of this encounter (statuses as of 12/25/2021) [facility] Narrative* Problem Noted Date Resolved Date Primary localized osteoarthritis of right knee 0 06/08/2018 07/01/2018 Overview: Added automatically from request for surgery [id number] Pneumonia 10/31/2016 06/23/2018 Fever 10/29/2016 11/02/2016 Hemicrania [...] of this encounter (statuses as of 03/04/2022) [facility] Narrative* Problem Noted Date Resolved Date Primary localized osteoarthritis of right knee 0 06/08/2018 07/01/2018 Overview: Added automatically from request for surgery [id number] Pneumonia 10/31/2016 06/23/2018 Fever 10/29/2016 11/02/2016 Hemicrania [...] of this encounter (statuses as of 05/19/2022) [facility] Narrative* Problem Noted Date Resolved Date Primary localized osteoarthritis of right knee 0 06/08/2018 07/01/2018 Overview: Added automatically from request for surgery [id number] Pneumonia 10/31/2016 06/23/2018 Fever 10/29/2016 11/02/2016 Hemicrania [...] of this encounter (statuses as of 05/26/2022) [facility] Narrative* Problem Noted Date Resolved Date Primary localized osteoarthritis of right knee 0 06/08/2018 07/01/2018 Overview: Added automatically from request for surgery [id number] Pneumonia 10/31/2016 06/23/2018 Fever 10/29/2016 11/02/2016 Hemicrania [...] of this encounter (statuses as of 06/10/2022) [facility] Narrative* Problem Noted Date Resolved Date Primary localized osteoarthritis of right knee 0 06/08/2018 07/01/2018 Overview: Added automatically from request for surgery [id number] Pneumonia 10/31/2016 06/23/2018 Fever 10/29/2016 11/02/2016 Hemicrania [...] of this encounter (statuses as of 06/10/2022) [facility] Narrative* Problem Noted Date Resolved Date Primary localized osteoarthritis of right knee 0 06/08/2018 07/01/2018 Overview: Added automatically from request for surgery [id number] Pneumonia 10/31/2016 06/23/2018 Fever 10/29/2016 11/02/2016 Hemicrania [...] of this encounter (statuses as of 06/10/2022) [facility] Narrative* Problem Noted Date Resolved Date Primary localized osteoarthritis of right knee 0 06/08/2018 07/01/2018 Overview: Added automatically from request for surgery [id number] Pneumonia 10/31/2016 06/23/2018 Fever 10/29/2016 11/02/2016 Hemicrania [...] of this encounter (statuses as of 06/12/2022) [facility] Narrative* Problem Noted Date Resolved Date Primary localized osteoarthritis of right knee 0 06/08/2018 07/01/2018 Overview: Added automatically from request for surgery [id number] Pneumonia 10/31/2016 06/23/2018 Fever 10/29/2016 11/02/2016 Hemicrania [...] of this encounter (statuses as of 06/19/2022) [facility] Narrative* Problem Noted Date Resolved Date Primary localized osteoarthritis of right knee 0 06/08/2018 07/01/2018 Overview: Added automatically from request for surgery [id number] Pneumonia 10/31/2016 06/23/2018 Fever 10/29/2016 11/02/2016 Hemicrania [...] of this encounter (statuses as of 06/26/2022) [facility] Narrative* Problem Noted Date Resolved Date Primary localized osteoarthritis of right knee 0 06/08/2018 07/01/2018 Overview: Added automatically from request for surgery [id number] Pneumonia 10/31/2016 06/23/2018 Fever 10/29/2016 11/02/2016 Hemicrania [...] of this encounter (statuses as of 07/14/2022) [facility] Narrative* Problem Noted Date Resolved Date Primary localized osteoarthritis of right knee 0 06/08/2018 07/01/2018 Overview: Added automatically from request for surgery [id number] Pneumonia 10/31/2016 06/23/2018 Fever 10/29/2016 11/02/2016 Hemicrania [...] of this encounter (statuses as of 07/29/2022) [facility] Narrative* Problem Noted Date Resolved Date Primary localized osteoarthritis of right knee 0 06/08/2018 07/01/2018 Overview: Added automatically from request for surgery [id number] Pneumonia 10/31/2016 06/23/2018 Fever 10/29/2016 11/02/2016 Hemicrania [...] of this encounter (statuses as of 08/08/2022) [facility] Narrative* Problem Noted Date Resolved Date Primary localized osteoarthritis of right knee 0 06/08/2018 07/01/2018 Overview: Added automatically from request for surgery [id number] Pneumonia 10/31/2016 06/23/2018 Fever 10/29/2016 11/02/2016 Hemicrania [...] of this encounter (statuses as of 08/12/2022) [facility] History of Past illness Narrative* Problem Noted Date Resolved Date Primary localized osteoarthritis of right knee 0 06/08/2018 07/01/2018 Overview: Added automatically from request for surgery [id number] Pneumonia 10/31/2016 06/23/2018 Fever 10/29/2016 11/02/2016 Hemicrania [...] of this encounter (statuses as of 08/13/2022) [facility] History of Past illness Narrative* Problem Noted Date Resolved Date Primary localized osteoarthritis of right knee 0 06/08/2018 07/01/2018 Overview: Added automatically from request for surgery [id number] Pneumonia 10/31/2016 06/23/2018 Fever 10/29/2016 11/02/2016 Hemicrania [...] of this encounter (statuses as of 09/04/2022) [facility] History of Past illness Narrative* Problem Noted Date Resolved Date Primary localized osteoarthritis of right knee 0 06/08/2018 07/01/2018 Overview: Added automatically from request for surgery [id number] Pneumonia 10/31/2016 06/23/2018 Fever 10/29/2016 11/02/2016 Hemicrania [...] of this encounter (statuses as of 09/09/2022) [facility] History of Past illness Narrative* Problem Noted Date Resolved Date Primary localized osteoarthritis of right knee 0 06/08/2018 07/01/2018 Overview: Added automatically from request for surgery [id number] Pneumonia 10/31/2016 06/23/2018 Fever 10/29/2016 11/02/2016 Hemicrania [...] of this encounter (statuses as of 09/12/2022) [facility] History of Past illness Narrative* Problem Noted Date Resolved Date Primary localized osteoarthritis of right knee 0 06/08/2018 07/01/2018 Overview: Added automatically from request for surgery [id number] Pneumonia 10/31/2016 06/23/2018 Fever 10/29/2016 11/02/2016 Hemicrania [...] of this encounter (statuses as of 10/01/2022) [facility] History of Past illness Narrative* Problem Noted Date Resolved Date Primary localized osteoarthritis of right knee 0 06/08/2018 07/01/2018 Overview: Added automatically from request for surgery [id number] Pneumonia 10/31/2016 06/23/2018 Fever 10/29/2016 11/02/2016 Hemicrania [...] of this encounter (statuses as of 10/23/2022) [facility] History of Past illness Narrative* Problem Noted Date Resolved Date Primary localized osteoarthritis of right knee 0 06/08/2018 07/01/2018 Overview: Added automatically from request for surgery [id number] Pneumonia 10/31/2016 06/23/2018 Fever 10/29/2016 11/02/2016 Hemicrania [...] of this encounter (statuses as of 11/01/2022) [facility] History of Past illness Narrative* Problem Noted Date Resolved Date Primary localized osteoarthritis of right knee 0 06/08/2018 07/01/2018 Overview: Added automatically from request for surgery [id number] Pneumonia 10/31/2016 06/23/2018 Fever 10/29/2016 11/02/2016 Hemicrania [...] of this encounter (statuses as of 11/07/2022) [facility] History of Past illness Narrative* Problem Noted Date Resolved Date Primary localized osteoarthritis of right knee 0 06/08/2018 07/01/2018 Overview: Added automatically from request for surgery [id number] Pneumonia 10/31/2016 06/23/2018 Fever 10/29/2016 11/02/2016 Hemicrania [...] of this encounter (statuses as of 11/14/2022) [facility] History of Past illness Narrative* Problem Noted Date Resolved Date Primary localized osteoarthritis of right knee 0 06/08/2018 07/01/2018 Overview: Added automatically from request for surgery [id number] Pneumonia 10/31/2016 06/23/2018 Fever 10/29/2016 11/02/2016 Hemicrania [...] of this encounter (statuses as of 11/19/2022) [facility] History of Past illness Narrative* Problem Noted Date Resolved Date Primary localized osteoarthritis of right knee 0 06/08/2018 07/01/2018 Overview: Added automatically from request for surgery [id number] Pneumonia 10/31/2016 06/23/2018 Fever 10/29/2016 11/02/2016 Hemicrania [...] of this encounter (statuses as of 11/26/2022) [facility] History of Past illness Narrative* Problem Noted Date Resolved Date Primary localized osteoarthritis of right knee 0 06/08/2018 07/01/2018 Overview: Added automatically from request for surgery [id number] Pneumonia 10/31/2016 06/23/2018 Fever 10/29/2016 11/02/2016 Hemicrania [...] of this encounter (statuses as of 12/02/2022) [facility] History of Past illness Narrative* Problem Noted Date Resolved Date Primary localized osteoarthritis of right knee 0 06/08/2018 07/01/2018 Overview: Added automatically from request for surgery [id number] Pneumonia 10/31/2016 06/23/2018 Fever 10/29/2016 11/02/2016 Hemicrania [...] of this encounter (statuses as of 12/02/2022) [facility] History of Past illness Narrative* Problem Noted Date Resolved Date Primary localized osteoarthritis of right knee 0 06/08/2018 07/01/2018 Overview: Added automatically from request for surgery [id number] Pneumonia 10/31/2016 06/23/2018 Fever 10/29/2016 11/02/2016 Hemicrania [...] of this encounter (statuses as of 12/03/2022) [facility] History of Past illness Narrative* Problem Noted Date Resolved Date Primary localized osteoarthritis of right knee 0 06/08/2018 07/01/2018 Overview: Added automatically from request for surgery [id number] Pneumonia 10/31/2016 06/23/2018 Fever 10/29/2016 11/02/2016 Hemicrania [...] of this encounter (statuses as of 12/09/2022) [facility] History of Past illness Narrative* Problem Noted Date Resolved Date Primary localized osteoarthritis of right knee 0 06/08/2018 07/01/2018 Overview: Added automatically from request for surgery [id number] Pneumonia 10/31/2016 06/23/2018 Fever 10/29/2016 11/02/2016 Hemicrania [...] of this encounter (statuses as of 12/09/2022) [facility] of Past illness Narrative* Problem Noted Date Resolved Date Primary localized osteoarthritis of right knee 0 06/08/2018 07/01/2018 Overview: Added automatically from request for surgery [id number] Pneumonia 10/31/2016 06/23/2018 Fever 10/29/2016 11/02/2016 Hemicrania [...] of this encounter (statuses as of 12/11/2022) [facility] History of Past illness Narrative* Problem Noted Date Resolved Date Primary localized osteoarthritis of right knee 0 06/08/2018 07/01/2018 Overview: Added automatically from request for surgery [id number] Pneumonia 10/31/2016 06/23/2018 Fever 10/29/2016 11/02/2016 Hemicrania [...] of this encounter (statuses as of 12/22/2022) [facility] History of Past illness Narrative* Problem Noted Date Resolved Date Primary localized osteoarthritis of right knee 0 06/08/2018 07/01/2018 Overview: Added automatically from request for surgery [id number] Pneumonia 10/31/2016 06/23/2018 Fever 10/29/2016 11/02/2016 Hemicrania [...] of this encounter (statuses as of 12/24/2022) [facility] History of Past illness Narrative* Problem Noted Date Resolved Date Primary localized osteoarthritis of right knee 0 06/08/2018 07/01/2018 Overview: Added automatically from request for surgery [id number] Pneumonia 10/31/2016 06/23/2018 Fever 10/29/2016 11/02/2016 Hemicrania [...] of this encounter (statuses as of 01/13/2023) [facility] History of Past illness Narrative* Problem Noted Date Resolved Date Primary localized osteoarthritis of right knee 0 06/08/2018 07/01/2018 Overview: Added automatically from request for surgery [id number] Pneumonia 10/31/2016 06/23/2018 Fever 10/29/2016 11/02/2016 Hemicrania [...] of this encounter (statuses as of 01/23/2023) [facility] History of Past illness Narrative* Problem Noted Date Resolved Date Primary localized osteoarthritis of right knee 0 06/08/2018 07/01/2018 Overview: Added automatically from request for surgery [id number] Pneumonia 10/31/2016 06/23/2018 Fever 10/29/2016 11/02/2016 Hemicrania [...] of this encounter (statuses as of 01/30/2023) [facility] of Past illness Narrative* Problem Noted Date Resolved Date Primary localized osteoarthritis of right knee 0 06/08/2018 07/01/2018 Overview: Added automatically from request for surgery [id number] Pneumonia 10/31/2016 06/23/2018 Fever 10/29/2016 11/02/2016 Hemicrania [...] of this encounter (statuses as of 02/09/2023) [facility] of Past illness Narrative* Problem Noted Date Resolved Date Primary localized osteoarthritis of right knee 0 06/08/2018 07/01/2018 Overview: Added automatically from request for surgery [id number] Pneumonia 10/31/2016 06/23/2018 Fever 10/29/2016 11/02/2016 Hemicrania [...] of this encounter (statuses as of 03/05/2023) [facility] of Past illness Narrative* Problem Noted Date Resolved Date Primary localized osteoarthritis of right knee 0 06/08/2018 07/01/2018 Overview: Added automatically from request for surgery [id number] Pneumonia 10/31/2016 06/23/2018 Fever 10/29/2016 11/02/2016 Hemicrania [...] of this encounter (statuses as of 03/13/2023) [facility] of Past illness Narrative* Problem Noted Date Diagnosed Date Resolved Date Primary localized osteoarthr itis of right knee 06/08/2018 07/01/2018 Overview: Added automatically from request for surgery [id number] Pneumonia 10/31/2016 06/23/2018 Fever 10/29/2016 11/02/2016 Hemicrania [...] of this encounter (statuses as of 04/10/2023) [facility] of Past illness Narrative* Problem Noted Date Diagnosed Date Resolved Date Primary localized osteoarthr itis of right knee 06/08/2018 07/01/2018 Overview: Added automatically from request for surgery [id number] Pneumonia 10/31/2016 06/23/2018 Fever 10/29/2016 11/02/2016 Hemicrania [...] of this encounter (statuses as of 06/16/2023) 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 11/14/19 16 Atypical facial pain 05/31/2015 016 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2015 Trigeminal neuralgia of right side of face 05/31/2015 11/14/2015 Follow-up examination, [facility] other surgery 12/16/2007 11/14/2015 Disorders of bursae and tend ons in shoulder region, unspecified 07/05/2007 11/14/2015 Pain in joint, shoulder region 07/05/2007 11/14/2015 documented as of this encounter (statuses as of 01/12/2024) [facility] Diagnosis Primary osteoarthritis of left knee- Primary Primary localized osteoarthrosis, lower leg [facility] Pain Generalized [facility] Diagnosis Onset Date Resolution Status Bilateral hand swelling acut e Bronchitis acute Elevated PSA acute Maxillary sinusitis, acute a cute Osteoarthritis acute Hypertension chronic [facility] Work Phone: Evaluation note* Diagnosis Prostate cancer (HCC)- Primary Malignant neoplasm of prostate [facility] Diagnosis Prostate cancer (HCC) Malignant neoplasm of prostate [facility] Diagnosis Prostate cancer (HCC)- Primary Malignant neoplasm of prostate Benign prostatic hyperplasia with incomplete bladder emptying [facility] Testicular pain, left- Primary Unspecified disorder of male genital organs Prostate cancer (HCC) Malignant neoplasm of prostate [facility] Prostate cancer (HCC)- Primary Malignant neoplasm of prostate Benign prostatic hyperplasia with incomplete bladder emptying [facility] Prostate cancer (HCC) Malignant neoplasm of prostate [facility] Prostate cancer (HCC)- Primary Malignant neoplasm of prostate [facility] Diagnosis Prostate cancer (HCC)- Primary Malignant neoplasm of prostate Benign prostatic hyperplasia with incomplete bladder emptying [facility] Prostate cancer (HCC)- Primary Malignant neoplasm of prostate [facility] Diagnosis Dysfunction of right rotator cuff- Primary [facility] Prostate cancer (HCC)- Primary Malignant neoplasm of prostate [facility] Diagnosis Prostate cancer (HCC)- Primary Malignant neoplasm of prostate [facility] Diagnosis Prostate cancer (HCC)- Primary Malignant neoplasm of prostate [facility] Diagnosis Leg swelling- Primary Swelling of limb Prostate cancer (HCC)- Primary Malignant neoplasm of prostate [facility] Diagnosis Left leg swelling Swelling of limb Prostate cancer (HCC)- Primary Malignant neoplasm of prostate documented [facility] encounter [facility]* Diagnosis Prostate cancer (HCC)- Primary Malignant neoplasm of prostate documented [facility] encounter [facility]* Diagnosis Prostate cancer (HCC)- Primary Malignant neoplasm of prostate documented [facility] encounter [facility]* Diagnosis Prostate cancer (HCC)- Primary Malignant neoplasm of prostate Encounter for monitoring Lupron therapy Encounter for therapeutic drug monitoring Hot flash due to medication [facility]* Diagnosis Prostate cancer (HCC)- Primary Malignant neoplasm of prostate [facility]* Diagnosis Prostate cancer (HCC)- Primary Malignant neoplasm of prostate documented [facility]* Diagnosis Left hand pain- Primary Pain in limb documented [facility] encounter [facility]* Diagnosis Primary osteoarthritis of left knee- Primary Primary localized osteoarthrosis, lower leg documented [facility]* Diagnosis Thumb pain, right- Primary Primary osteoarthritis of first carpometacarpal joint of left hand Primary localized osteoarthrosis, hand Peripheral vascular disease (HCC) Peripheral vascular disease, unspecified BMI 40.0-44.9, adult (HCC) Body Mass Index 40.0-44.9, adult documented in this encounter [facility]* Diagnosis Prostate cancer (HCC)- Primary Malignant neoplasm of prostate Encounter for monitoring Lupron therapy Encounter for therapeutic drug monitoring Diarrhea, unspecified type Hypercalcemia documented in this encounter [facility]* Diagnosis Onset Date Resolution Status Adverse effect of correct me dicinal substance properly administered acute Edema of both lower extremities acute 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 Osteoarthritis acute Elevated PSA acute GERD acute Pain, joint, multiple sites acute Hypertension chronic [facility] Work Phone: Evaluation note* Diagnosis 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 Primary osteoarthritis of left knee Primary localized osteoarthrosis, lower leg documented [facility] encounter [facility]* Diagnosis Encounter for follow-up surveillance of prostate cancer- Primary Unspecified follow-up examination documented in this encounter [facility] note* Diagnosis Prostate cancer (HCC) Malignant neoplasm [...] [facility] D[facility]- Primary [facility] Diagnosis Prostate cancer (HCC) Malignant neoplasm of prostate Bladder neck obstruction BMI 40.0-44.9, adult (HCC) Body Mass Index 40.0-44.9, adult [facility] Pain in joint, multiple sites [facility] Diagnosis Inflammatory arthritis- Primary Unspecified inflammatory [...] [facility]* Diagnosis Carpal tunnel syndrome of left [...] Swelling of limb [facility] Diagnosis Pain Generalized pain 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* Diagnosis Irradiation cystitis with hematuria- Primary Irradiation cystitis Other specified disorders of the skin and subcutaneous tissue related to radiation [facility] Diagnosis Irradiation cystitis with hematuria- Primary Irradiation cystitis Other specified disorders of the skin and subcutaneous tissue related to radiation [facility] Diagnosis Irradiation cystitis with hematuria- Primary Irradiation cystitis Other specified disorders of the skin and subcutaneous tissue related to radiation [facility] Diagnosis Arthritis of carpometacarpal (CMC) joint of left thumb- Primary [facility] Diagnosis Irradiation cystitis with hematuria- Primary Irradiation cystitis Other specified disorders of the skin and subcutaneous tissue related to radiation [facility] Diagnosis Irradiation cystitis with hematuria- Primary Irradiation cystitis Other specified disorders of the skin and subcutaneous tissue related to radiation [facility] Diagnosis Irradiation cystitis with hematuria- Primary Irradiation cystitis Other specified disorders of the skin and subcutaneous tissue related to radiation [facility] Diagnosis Irradiation cystitis with hematuria- Primary Irradiation cystitis Other specified disorders of the skin and subcutaneous tissue related to radiation [facility] Diagnosis Arthritis of carpometacarpal (CMC) joint of left thumb- Primary Right hand pain Pain in limb [facility] Diagnosis Right hand pain Pain in limb [facility] Diagnosis Irradiation cystitis with hematuria- Primary Irradiation cystitis Other specified disorders of the skin and subcutaneous tissue related to radiation [facility] Diagnosis Irradiation cystitis with hematuria- Primary Irradiation cystitis Other specified disorders of the skin and subcutaneous tissue related to radiation [facility] Diagnosis Irradiation cystitis with hematuria- Primary Irradiation cystitis Other specified disorders of the skin and subcutaneous tissue related to radiation documented [facility]* Diagnosis Primary osteoarthritis of first carpometacarpal joint of right hand- Primary Primary localized osteoarthrosis, hand [facility]* Diagnosis Irradiation cystitis with hematuria- Primary Irradiation cystitis Other specified disorders of the skin and subcutaneous tissue related to radiation [facility] Diagnosis Irradiation cystitis with hematuria- Primary Irradiation cystitis Other specified disorders of the skin and subcutaneous tissue related to radiation [facility]* Diagnosis Irradiation cystitis with hematuria- Primary Irradiation cystitis Other specified disorders of the skin and subcutaneous tissue related to radiation [facility]* Diagnosis Irradiation cystitis with hematuria- Primary Irradiation cystitis Other specified disorders of the skin and subcutaneous tissue related to radiation documented [facility]* Diagnosis Irradiation cystitis with hematuria- Primary Irradiation cystitis Other specified disorders of the skin and subcutaneous tissue related to radiation [facility]* Diagnosis Irradiation cystitis with hematuria- Primary Irradiation cystitis Other specified disorders of the skin and subcutaneous tissue related to radiation documented [facility]* Diagnosis Irradiation cystitis with hematuria- Primary Irradiation cystitis Other specified disorders of the skin and subcutaneous tissue related to radiation [facility]* Diagnosis Irradiation cystitis with hematuria- Primary Irradiation cystitis Other specified disorders of the skin and subcutaneous tissue related to radiation [facility]* Diagnosis Encounter for follow-up surveillance of prostate cancer- Primary Unspecified follow-up examination [facility] Diagnosis Encounter for follow-up surveillance of prostate cancer- Primary Unspecified follow-up examination [facility] Diagnosis Arthritis of carpometacarpal (CMC) joint of left thumb- Primary [facility]* Diagnosis Status post total right knee replacement- Primary Primary osteoarthritis of left knee Primary localized osteoarthrosis, lower leg [facility]* Diagnosis Left knee pain, unspecified chronicity [facility]* Diagnosis Left knee pain, unspecified chronicity- Primary [facility]* Diagnosis Left hip pain- Primary Pain in joint, pelvic region and thigh [facility] this 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* Diagnosis Left hip pain Pain in joint, pelvic region and thigh documented in this encounter [facility] for referral (narrative)* Diagnostic Procedure Only (Routine) - Closed Specialty Diagnoses / Procedures Referred By Contac t Referred To Contact XR IMAGING Diagnoses Pain Procedures XR KNEE GENERAL 4V AP BOTH/PA BOTH/LAT/MERC LEFT RADIOLOGIC EXAM KNEE COMPLETE 4/MORE VIEWS James Barnes APRN.CNP [address] [address] Xr Imaging Referral ID Status Reason Start Date Expiration Date V isits Requested Visits Authorized [id number] Closed Auto-Generate d Referral 12/16/2021 01/12/2023 1 1 [facility] for referral (narrative)* Diagnostic Procedure Only (Routine) - Pending Review Specialty Diagnoses / Procedures Referred By Contac t Referred To Contact MOLECULAR & FUNCTIONAL IMAGING Diagnoses Prostate cancer (HCC) Procedures NM BONE WHOLE BODY BONE &/JO[place] [address] [place] [address] Molecular & Functional Imaging [address] [place] [address] Referral ID Status Reason Start Date Expiration Date Visits Requested Visits Authorized [id number] Pending Review Auto-Generat ed Referral 05/19/2022 06/18/2023 1 1 * MRI/CT (Routine) - Pending Review Specialty Diagnoses / Procedures Referred By Contac t Referred To Contact CT IMAGING Diagnoses Prostate cancer (HCC) Procedures CT PELVIS W IVCON CT PELVIS W/CONTRAST MATERIAL Vazquez Page DO [address] [place] [address] Ct Imaging Referral ID Status Reason Start Date Expiration Date Visits Requested Visits Authorized [id number] Pending Review Auto-Generat ed Referral 05/19/2022 06/18/2023 1 1 [facility] for referral (narrative)* Diagnostic Procedure Only (Routine) - Closed Specialty Diagnoses / Procedures Referred By Contac t Referred To Contact MOLECULAR & FUNCTIONAL IMAGING Diagnoses Prostate cancer (HCC) Procedures NM BONE WHOLE BODY BONE &/JOINT [place] [address] [place] [address] Molecular & Functional Imaging [address] [place] [address] Referral ID Status Reason Start Date Expiration Date V isits Requested Visits Authorized [id number] Closed Auto-Generate d Referral 05/19/2022 06/18/2023 1 1 [facility] for referral (narrative)* Diagnostic Procedure Only (Routine) - Closed Specialty Diagnoses / Procedures Referred By Contac t Referred To Contact US IMAGING Diagnoses Leg swelling Procedures US DVT LOWER LT DUP-SCAN XTR VEINS UNILATERAL/[place] [address] [place] [address] Us Imaging Referral ID Status Reason Start Date Expiration Date V isits Requested Visits Authorized [id number] Closed Auto-Generate d Referral 12/02/2022 01/01/2024 1 1 [facility] for referral (narrative)* Diagnostic Procedure Only (Routine) - Pending Review Specialty Diagnoses / Procedures Referred By Contac t Referred To Contact XR IMAGING Diagnoses Left hand pain Procedures XR HAND GENERAL 3V PA/LAT/OBL LEFT RADEX HAND MINIMUM 3 VIEWS Afsaneh Hayes PA-C [address] [place] [address] Xr Imaging Referral ID Status Reason Start Date Expiration Date Visits Requested Visits Authorized [id number] Pending Review Auto-Generat ed Referral 01/23/2023 02/22/2024 1 1 [facility] for referral (narrative)* Diagnostic Procedure Only (Routine) - Closed Specialty Diagnoses / Procedures Referred By Contac t Referred To Contact XR IMAGING Diagnoses Thumb pain, right Procedures XR HAND GENERAL 3V PA/LAT/OBL RIGHT RADEX HAND MINIMUM 3 VIEWS Afsaneh Hayes PA-C [address] [place] [address] Xr Imaging Referral ID Status Reason Start Date Expiration Date V isits Requested Visits Authorized [id number] Closed Auto-Generate d Referral 02/05/2023 03/06/2024 1 1 [facility] for referral (narrative)* Diagnostic Procedure Only (Routine) - Closed Specialty Diagnoses / Procedures Referred By Contac t Referred To Contact XR IMAGING Diagnoses Prostate cancer (HCC) Procedures XR LUMBAR GENERAL 3V AP/LAT/L5-S1 RADEX SPINE LUMBOSACRAL 2/3 [place] [address] [place] [address] [place] [address] Referral ID Status Reason Start Date Expiration Date V isits Requested Visits Authorized [id number] Closed Auto-Generate d Referral 07/03/2023 08/01/2024 1 1 * Diagnostic Procedure Only (Routine) - Closed Specialty Diagnoses / Procedures Referred By Contac t Referred To Contact XR IMAGING Diagnoses Prostate cancer (HCC) Procedures XR SACRUM/COCCYX 3V AP/LAT RADEX SACRUM & COCCYX MINIMUM 2 [place] [address] [place] [address] [place] [address] Referral ID Status Reason Start Date Expiration Date V isits Requested Visits Authorized [id number] Closed Auto-Generate d Referral 07/03/2023 08/01/2024 1 1 * Diagnostic Procedure Only (Routine) - Closed Specialty Diagnoses / Procedures Referred By Contac t Referred To Contact XR IMAGING Diagnoses Prostate cancer (HCC) Procedures XR PELVIS 3V AP/INLET/OUTLET RADIOLOGIC EXAM PELVIS COMPL MINIMUM 3 [place] [address] [place] [address] [place] [address] Referral ID Status Reason Start Date Expiration Date V isits Requested Visits Authorized [id number] Closed Auto-Generate d Referral 07/03/2023 08/01/2024 1 1 [facility] for referral (narrative)* Diagnostic Procedure Only (Routine) - Pending Review Specialty Diagnoses / Procedures Referred By Contac t Referred To Contact US IMAGING Diagnoses Pain in joint, multiple sites Procedures US HAND/WRIST SYNOVIAL SCREEN LEFT US COMPL JOINT R-T W/[place] [address] [place] [phone] [place] [address] Referral ID Status Reason Start Date Expiration Date Visits Requested Visits Authorized [id number] Pending Review Auto-Generat ed Referral 12/14/2023 01/12/2025 1 1 * Diagnostic Procedure Only (Routine) - Pending Review Specialty Diagnoses / Procedures Referred By Contac t Referred To Contact US IMAGING Diagnoses Pain in joint, multiple sites Procedures US HAND/WRIST SYNOVIAL SCREEN RIGHT US COMPL JOINT R-T W/[place] [address] [place] [address] [place] [address] Referral ID Status Reason Start Date Expiration Date Visits Requested Visits Authorized [id number] Pending Review Auto-Generat ed Referral 12/14/2023 01/12/2025 1 1 [facility] for referral (narrative)* Diagnostic Procedure Only (Routine) - Closed Specialty Diagnoses / Procedures Referred By Contac t Referred To Contact US IMAGING Diagnoses Pain in joint, multiple sites Procedures US HAND/WRIST SYNOVIAL SCREEN LEFT US COMPL JOINT R-T W/[place] [address] [place] [address] [place] [address] Referral ID Status Reason Start Date Expiration Date V isits Requested Visits Authorized [id number] Closed Auto-Generate d Referral 12/14/2023 01/12/2025 1 1 * Diagnostic Procedure Only (Routine) - Closed Specialty Diagnoses / Procedures Referred By Contac t Referred To Contact US IMAGING Diagnoses Pain in joint, multiple sites Procedures US HAND/WRIST SYNOVIAL SCREEN RIGHT US COMPL JOINT R-T W/[place] [address] [place] [address] [place] [address] Referral ID Status Reason Start Date Expiration Date V isits Requested Visits Authorized [id number] Closed Auto-Generate d Referral 12/14/2023 01/12/2025 1 1 [facility] for referral (narrative)* Diagnostic Procedure Only (Routine) - Authorized Specialty Diagnoses / Procedures Referred By Contac t Referred To Contact XR IMAGING Diagnoses Pain Procedures XR WRIST GENERAL 3V PA/LAT/OBL LEFT RADEX WRIST COMPLETE MINIMUM 3 VIEWS Patria Scott PA-C [address] [place] [address] [place] [address] Referral ID Status Reason Start Date Expiration Date Visits Requested Visits Authorized [id number] Authorized Auto-Generat ed Referral 03/20/2024 04/19/2025 1 1 [facility] for referral (narrative)* Diagnostic Procedure Only (Routine) - Closed Specialty Diagnoses / Procedures Referred By Contac t Referred To Contact XR IMAGING Diagnoses Pain Procedures XR WRIST GENERAL 3V PA/LAT/OBL LEFT RADEX WRIST COMPLETE MINIMUM 3 VIEWS Patria Scott PA-C [address] [place] [address] [place] [address] Referral ID Status Reason Start Date Expiration Date V isits Requested Visits Authorized [id number] Closed Auto-Generate d Referral 03/20/2024 04/19/2025 1 1 [facility] for referral (narrative)* Diagnostic Procedure Only (Routine) - Closed Specialty Diagnoses / Procedures Referred By Contac t Referred To Contact XR IMAGING Diagnoses Pain in left hip Procedures XR HIP 2V AP/LAT LEFT (AK,FL,ME) RADEX HIP UNILATERAL WITH PELVIS 2-3 VIEWS Selwyn Leiva PA-C [address] [place] [address] [place] [address] Referral ID Status Reason Start Date Expiration Date V isits Requested Visits Authorized [id number] Closed Auto-Generate d Referral 04/07/2023 05/06/2024 1 1 [facility] for referral (narrative)* Diagnostic Procedure Only (Routine) - Closed Specialty Diagnoses / Procedures Referred By Contac t Referred To Contact XR IMAGING Diagnoses Thumb pain, right Procedures XR HAND GENERAL 3V PA/LAT/OBL RIGHT RADEX HAND MINIMUM 3 VIEWS Afsaneh Hayes PA-C [address] [place] [address] [place] [address] Referral ID Status Reason Start Date Expiration Date V isits Requested Visits Authorized [id number] Closed Auto-Generate d Referral 02/05/2023 03/06/2024 1 1 * Diagnostic Procedure Only (Routine) - Closed Specialty Diagnoses / Procedures Referred By Contac t Referred To Contact XR IMAGING Diagnoses Left hand pain Procedures XR HAND GENERAL 3V PA/LAT/OBL LEFT RADEX HAND MINIMUM 3 VIEWS Afsaneh Hayes PA-C [address] [place] [address] [place] [address] Referral ID Status Reason Start Date Expiration Date V isits Requested Visits Authorized [id number] Closed Auto-Generate d Referral 01/23/2023 02/22/2024 1 1 [facility] for referral (narrative)* Diagnostic Procedure Only (Routine) - Closed Specialty Diagnoses / Procedures Referred By Contac t Referred To Contact US IMAGING Diagnoses Leg swelling Procedures US DVT LOWER LT DUP-SCAN XTR VEINS UNILATERAL/[place] [address] [place] [address] Us Imaging [facility] Referral ID Status Reason Start Date Expiration Date V isits Requested Visits Authorized [id number] Closed Auto-Generate d Referral 12/02/2022 01/01/2024 1 1 [facility] for referral (narrative)* Diagnostic Procedure Only (Routine) - Closed Specialty Diagnoses / Procedures Referred By Contac t Referred To Contact XR IMAGING Diagnoses Pain Procedures XR SHOULDER GENERAL 3V OR MORE AP/TRUE AP/OTHER RIGHT RADEX SHOULDER COMPLETE MINIMUM 2 VIEWS Flynn Julian PA-C [address] [address] [place] [address] Referral ID Status Reason Start Date Expiration Date V isits Requested Visits Authorized [id number] Closed Auto-Generate d Referral 09/11/2022 10/11/2023 1 1 [facility] Diagnostic Procedure Only (Routine) - Closed Specialty Diagnoses / Procedures Referred By Contac t Referred To Contact XR IMAGING Diagnoses Right hand pain Procedures XR HAND GENERAL 3V PA/LAT/OBL RIGHT RADEX HAND MINIMUM 3 [place] [address] [place] [address] [place] [address] Referral ID Status Reason Start Date Expiration Date V isits Requested Visits Authorized [id number] Closed Auto-Generate d Referral 08/02/2024 09/01/2025 1 1 [facility] (narrative)No reason for referral information availableWWadsworth[facility] Work Phone: Reason for visit Narrative* Diagnostic Procedure Only (Routine) - Closed Specialty Diagnoses / Procedures Referred By Contac t Referred To Contact XR IMAGING Diagnoses Pain Procedures XR KNEE GENERAL 4V AP BOTH/PA BOTH/LAT/MERC LEFT RADIOLOGIC EXAM KNEE COMPLETE 4/MORE VIEWS James Barnes APRN.[facility] [address] [address] Xr Imaging Referral ID Status Reason Start Date Expiration Date V isits Requested Visits Authorized [id number] Closed Auto-Generate d Referral 12/16/2021 01/12/2023 1 1 [facility] for visit Narrative* Diagnostic Procedure Only (Routine) - Closed Specialty Diagnoses / Procedures Referred By Contac t Referred To Contact MOLECULAR & FUNCTIONAL IMAGING Diagnoses Prostate cancer (HCC) Procedures NM BONE WHOLE BODY BONE &/JOINT IMAGING WHOLE BODY Vazquez Page DO [address] [place] [address] Molecular & Functional Imaging [address] [place] [address] Referral ID Status Reason Start Date Expiration Date V isits Requested Visits Authorized [id number] Closed Auto-Generate d Referral 05/19/2022 06/18/2023 1 1 [facility] for visit Narrative* Diagnostic Procedure Only (Routine) - Waiting for Online Response Specialty Diagnoses / Procedures Referred By Contac t Referred To Contact MOLECULAR & FUNCTIONAL IMAGING Diagnoses Prostate cancer (HCC) Procedures NM PET/CT PROSTATE WHOLE BODY IMAGING PET IMAGING CT ATTENUATION SKULL [place] [address] [place] [id number] Molecular & Functional Imaging [address] [place] [address] Referral ID Status Reason Start Date Expiration Date Visits Requested Visits Authorized [id number] Waiting for Online Response Patient Cleared - Admin/Chair man/Directo r advise to proceed 2 08/21/2023 2 2 [facility] for visit Narrative* Diagnostic Procedure Only (Routine) - Closed Specialty Diagnoses / Procedures Referred By Contac t Referred To Contact XR IMAGING Diagnoses Prostate cancer (HCC) Procedures XR SACRUM/COCCYX 3V AP/LAT RADEX SACRUM & COCCYX MINIMUM 2 [place] [address] [place] [id number] [place] [address] Referral ID Status Reason Start Date Expiration Date V isits Requested Visits Authorized [id number] Closed Auto-Generate d Referral 07/03/2023 08/01/2024 1 1 [facility] for visit Narrative* Diagnostic Procedure Only (Routine) - Closed Specialty Diagnoses / Procedures Referred By Contac t Referred To Contact US IMAGING Diagnoses Pain in joint, multiple sites Procedures US HAND/WRIST SYNOVIAL SCREEN LEFT US COMPL JOINT R-T W/[place] [address] [place] [id number] [place] [address] Referral ID Status Reason Start Date Expiration Date V isits Requested Visits Authorized [id number] Closed Auto-Generate d Referral 12/14/2023 01/12/2025 1 1 [facility] for visit Narrative* Diagnostic Procedure Only (Routine) - Closed Specialty Diagnoses / Procedures Referred By Contac t Referred To Contact XR IMAGING Diagnoses Pain Procedures XR WRIST GENERAL 3V PA/LAT/OBL LEFT RADEX WRIST COMPLETE MINIMUM 3 VIEWS Patria Scott PA-C [address] [place] [address] [place] [address] Referral ID Status Reason Start Date Expiration Date V isits Requested Visits Authorized [id number] Closed Auto-Generate d Referral 03/20/2024 04/19/2025 1 1 [facility] for visit Narrative* Diagnostic Procedure Only (Routine) - Closed Specialty Diagnoses / Procedures Referred By Contac t Referred To Contact XR IMAGING Diagnoses Pain in left hip Procedures XR HIP 2V AP/LAT LEFT (AK,FL,ME) RADEX HIP UNILATERAL WITH PELVIS 2-3 VIEWS Selwyn Leiva PA-C [address] [place] [address] [place] [address] Referral ID Status Reason Start Date Expiration Date V isits Requested Visits Authorized [id number] Closed Auto-Generate d Referral 04/07/2023 05/06/2024 1 1 [facility] for visit Narrative* Diagnostic Procedure Only (Routine) - Closed Specialty Diagnoses / Procedures Referred By Contac t Referred To Contact XR IMAGING Diagnoses Left hand pain Procedures XR HAND GENERAL 3V PA/LAT/OBL LEFT RADEX HAND MINIMUM 3 VIEWS Afsaneh Hayes PA-C [address] [place] [address] [place] [address] Referral ID Status Reason Start Date Expiration Date V isits Requested Visits Authorized [id number] Closed Auto-Generate d Referral 01/23/2023 02/22/2024 1 1 [facility] for visit Narrative* Diagnostic Procedure Only (Routine) - Closed Specialty Diagnoses / Procedures Referred By Contac t Referred To Contact US IMAGING Diagnoses Leg swelling Procedures US DVT LOWER LT DUP-SCAN XTR VEINS UNILATERAL/[place] [address] [place] [address] [place] [address] Referral ID Status Reason Start Date Expiration Date V isits Requested Visits Authorized [id number] Closed Auto-Generate d Referral 12/02/2022 01/01/2024 1 1 [facility] for visit Narrative* Diagnostic Procedure Only (Routine) - Closed Specialty Diagnoses / Procedures Referred By Contac t Referred To Contact XR IMAGING Diagnoses Left knee pain, unspecified chronicity Procedures XR KNEE GENERAL 4V AP BOTH/PA BOTH/LAT/MERC LEFT RADIOLOGIC EXAM KNEE COMPLETE 4/MORE VIEWS Selwyn Leiva PA-C [address] [place] [address] Phone: tel: fax: [place] [address] Referral ID Status Reason Start Date Expiration Date V isits Requested Visits Authorized [id number] Closed Auto-Generate d Referral 02/27/2025 03/29/[address] 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 Mapping Technician Expl 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 Advance Directive(s) 10/04/2021 7:34 PM Advance Directive(s) 11/12/2019 9:23 PM Advance Directive(s) 08/24/2018 4:38 PM Advance Directive(s) 06/30/2018 9:16 AM Wa anned [id number] Advance Directive(s) 06/30/2018 9:14 AM Advance Directive(s) 05/11/2018 8:03 AM Advance Directive(s) 07/23/2016 8:48 AM Advance Directive(s) 07/23/2016 11:45 AM Latest Code Status on File Code Status Date Activated Date Inactivated Comments Full Code 06/30/2018 1:18 PM 07/01/2018 6:48 PM Documents on File Type Date Recorded 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 Mapping Technician Expl 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 Advance Directive(s) 10/04/2021 7:34 PM Advance Directive(s) 11/12/2019 9:23 PM Advance Directive(s) 08/24/2018 4:38 PM Advance Directive(s) 06/30/2018 9:16 AM [place] anned [id number] Advance Directive(s) 06/30/2018 9:14 AM Advance Directive(s) 05/11/2018 8:03 AM Advance Directive(s) 07/23/2016 8:48 AM Advance Directive(s) 07/23/2016 11:45 AM Documents on File Type Date Recorded 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 Mapping Technician Expl 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 Advance Directive(s) 06/30/2018 9:14 AM [...] PSA GERD Pain, joint, multiple sites Hypertension Chief Complaint Admit Date medication refills March 09, 2025 6:54 pm Reason for Visit Admit Date Central sleep apnea March 09, 2025 6:54 pm 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 March 09, 2025 6:54pm Osteoarthritis March 09, 2025 6:54 pm Hypertension March 09, 2025 6:54 pm Family History No Family History Records Found Relationship Condition Age at Onset Recorded Date/T parminder Not Specified Cardiac disease Unknown Malignant neoplasm Unknown Pneumonia Unknown Reason for Referral Specialty Diagnoses / Procedures Referred By Contac t Referred To Contact Radiation Oncology Diagnoses Prostate cancer (HCC) Procedures RAD/ONC CONSULT OFFICE/OUTPATIENT [facility] 60-74 MINUTES Vazquez Page DO [address] [place] [id number] [place] [address] [place] [address] Referral ID Status Reason Start Date Expiration Date Visits Requested Visits Authorized [id number] Authorized PCP Requested Referral 06/19/2022 06/19/2023 1 1 Specialty Diagnoses / Procedures Referred By Contac t Referred To Contact MR IMAGING Diagnoses Prostate cancer (HCC) Procedures MRI PROSTATE WO/W IVCON MRI PELVIS W/O & W/CONTRAST MATERIAL Vazquez Page DO [address] [place] [id number] Mr Imaging Referral ID Status Reason Start Date Expiration Date Visits Requested Visits Authorized [id number] Pending Review Auto-Generat ed Referral 06/19/2022 07/19/2023 1 1 Specialty Diagnoses / Procedures Referred By Contac t Referred To Contact MR IMAGING Diagnoses Dysfunction of right rotator cuff Procedures MRI SHOULDER WO IVCON RT MRI ANY JT UPPER EXTREMITY W/O CONTRAST MATRFlynn Balbuena PA-C [address] [place] [address] Mr Imaging Referral ID Status Reason Start Date Expiration Date Visits Requested Visits Authorized [id number] Pending Review Auto-Generat ed Referral 10/12/2023 1 1 Specialty Diagnoses / Procedures Referred By Contac t Referred To Contact [facility] Diagnoses Dysfunction of right rotator cuff Procedures CONSULT TO PHYSICAL THERAPY PHYSICAL THERAPY EVALUATION HIGH COMPLEX 45 MINS Flynn Julian PA-C [address] [place] [id number] [facility] [place] [address] [place] [address] Referral ID Status Reason Start Date Expiration Date Visits Requested Visits Authorized [id number] Pending Review Auto-Generat ed Referral 2 09/12/2023 1 1 Specialty Diagnoses / Procedures Referred By Contac t Referred To Contact Urology Diagnoses Prostate cancer (HCC) Bladder neck obstruction Procedures CONSULT TO UROLOGY OFFICE/OUTPATIENT [facility] MDM 60 [place] [address] [place] [id number] Referral ID Status Reason Start Date Expiration Date Visits Requested Visits Authorized [id number] Authorized PCP Requested Referral 12/17/2023 12/16/2024 1 1 Specialty Diagnoses / Procedures Referred By Contac t Referred To Contact MR IMAGING Diagnoses Bladder neck obstruction Procedures MRI PELVIS WO/W IVCON MRI PELVIS W/O & W/[place] [address] [place] [address] Mr [facility] [place] [address] Referral ID Status Reason Start Date Expiration Date Visits Requested Visits Authorized [id number] Pending Review Auto-Generat ed Referral 12/17/2023 01/15/2025 1 1 Referral ID Status Reason Start Date Expiration Date V isits Requested Visits Authorized [id number] Closed Auto-Generate d Referral 01/12/2024 02/11/2024 2 1 Summary Purpose Additional Source Comments Source Comments (unrecognize d section and content) In the event this informatio n is protected by the Federal Confidentiality of Alcohol and Drug Abuse Patient Records regulations: The Federal rules restrict any use of the information to criminally investigate or prosecute any alcohol or drug abuse patient.[facility] the event this information is protected by the Federal Confidentiality of Alcohol and Drug Abuse Patient Records regulations: The Federal rules restrict any use of the information to criminally investigate or prosecute any alcohol or drug abuse patient.[facility] HospitalIn the event this information is protected by the Federal Confidentiality of Alcohol and Drug Abuse Patient Records regulations: The Federal rules restrict any use of the information to criminally investigate or prosecute any alcohol or drug abuse patient.[facility] HospitalIn the event this information is protected by the Federal Confidentiality of Alcohol and Drug Abuse Patient Records regulations: The Federal rules restrict any use of the information to criminally investigate or prosecute any alcohol or drug abuse patient.[facility] HospitalIn the event this information is protected by the Federal Confidentiality of Alcohol and Drug Abuse Patient Records regulations: The Federal rules restrict any use of the information to criminally investigate or prosecute any alcohol or drug abuse patient.[facility] HospitalIn the event this information is protected by the Federal Confidentiality of Alcohol and Drug Abuse Patient Records regulations: The Federal rules restrict any use of the information to criminally investigate or prosecute any alcohol or drug abuse patient.[facility] HospitalIn the event this information is protected by the Federal Confidentiality of Alcohol and Drug Abuse Patient Records regulations: The Federal rules restrict any use of the information to criminally investigate or prosecute any alcohol or drug abuse patient.[facility] HospitalIn the event this information is protected by the Federal Confidentiality of Alcohol and Drug Abuse Patient Records regulations: The Federal rules restrict any use of the information to criminally investigate or prosecute any alcohol or drug abuse patient.[facility] HospitalIn the event this information is protected by the Federal Confidentiality of Alcohol and Drug Abuse Patient Records regulations: The Federal rules restrict any use of the information to criminally investigate or prosecute any alcohol or drug abuse patient.[facility] HospitalIn the event this information is protected by the Federal Confidentiality of Alcohol and Drug Abuse Patient Records regulations: The Federal rules restrict any use of the information to criminally investigate or prosecute any alcohol or drug abuse patient.[facility] HospitalIn the event this information is protected by the Federal Confidentiality of Alcohol and Drug Abuse Patient Records regulations: The Federal rules restrict any use of the information to criminally investigate or prosecute any alcohol or drug abuse patient.[facility] HospitalIn the event this information is protected by the Federal Confidentiality of Alcohol and Drug Abuse Patient Records regulations: The Federal rules restrict any use of the information to criminally investigate or prosecute any alcohol or drug abuse patient.[facility] HospitalIn the event this information is protected by the Federal Confidentiality of Alcohol and Drug Abuse Patient Records regulations: The Federal rules restrict any use of the information to criminally investigate or prosecute any alcohol or drug abuse patient.[facility] HospitalIn the event this information is protected by the Federal Confidentiality of Alcohol and Drug Abuse Patient Records regulations: The Federal rules restrict any use of the information to criminally investigate or prosecute any alcohol or drug abuse patient.[facility] HospitalIn the event this information is protected by the Federal Confidentiality of Alcohol and Drug Abuse Patient Records regulations: The Federal rules restrict any use of the information to criminally investigate or prosecute any alcohol or drug abuse patient.[facility] HospitalIn the event this information is protected by the Federal Confidentiality of Alcohol and Drug Abuse Patient Records regulations: The Federal rules restrict any use of the information to criminally investigate or prosecute any alcohol or drug abuse patient.[facility] HospitalIn the event this information is protected by the Federal Confidentiality of Alcohol and Drug Abuse Patient Records regulations: The Federal rules restrict any use of the information to criminally investigate or prosecute any alcohol or drug abuse patient.[facility] HospitalIn the event this information is protected by the Federal Confidentiality of Alcohol and Drug Abuse Patient Records regulations: The Federal rules restrict any use of the information to criminally investigate or prosecute any alcohol or drug abuse patient.[facility] HospitalIn the event this information is protected by the Federal Confidentiality of Alcohol and Drug Abuse Patient Records regulations: The Federal rules restrict any use of the information to criminally investigate or prosecute any alcohol or drug abuse patient.[facility] HospitalIn the event this information is protected by the Federal Confidentiality of Alcohol and Drug Abuse Patient Records regulations: The Federal rules restrict any use of the information to criminally investigate or prosecute any alcohol or drug abuse patient.[facility] HospitalIn the event this information is protected by the Federal Confidentiality of Alcohol and Drug Abuse Patient Records regulations: The Federal rules restrict any use of the information to criminally investigate or prosecute any alcohol or drug abuse patient.[facility] HospitalIn the event this information is protected by the Federal Confidentiality of Alcohol and Drug Abuse Patient Records regulations: The Federal rules restrict any use of the information to criminally investigate or prosecute any alcohol or drug abuse patient.[facility] HospitalIn the event this information is protected by the Federal Confidentiality of Alcohol and Drug Abuse Patient Records regulations: The Federal rules restrict any use of the information to criminally investigate or prosecute any alcohol or drug abuse patient.[facility] HospitalIn the event this information is protected by the Federal Confidentiality of Alcohol and Drug Abuse Patient Records regulations: The Federal rules restrict any use of the information to criminally investigate or prosecute any alcohol or drug abuse patient.[facility] HospitalIn the event this information is protected by the Federal Confidentiality of Alcohol and Drug Abuse Patient Records regulations: The Federal rules restrict any use of the information to criminally investigate or prosecute any alcohol or drug abuse patient.[facility] HospitalIn the event this information is protected by the Federal Confidentiality of Alcohol and Drug Abuse Patient Records regulations: The Federal rules restrict any use of the information to criminally investigate or prosecute any alcohol or drug abuse patient.[facility] HospitalIn the event this information is protected by the Federal Confidentiality of Alcohol and Drug Abuse Patient Records regulations: The Federal rules restrict any use of the information to criminally investigate or prosecute any alcohol or drug abuse patient.[facility] HospitalIn the event this information is protected by the Federal Confidentiality of Alcohol and Drug Abuse Patient Records regulations: The Federal rules restrict any use of the information to criminally investigate or prosecute any alcohol or drug abuse patient.[facility] HospitalIn the event this information is protected by the Federal Confidentiality of Alcohol and Drug Abuse Patient Records regulations: The Federal rules restrict any use of the information to criminally investigate or prosecute any alcohol or drug abuse patient.[facility] HospitalIn the event this information is protected by the Federal Confidentiality of Alcohol and Drug Abuse Patient Records regulations: The Federal rules restrict any use of the information to criminally investigate or prosecute any alcohol or drug abuse patient.[facility] HospitalIn the event this information is protected by the Federal Confidentiality of Alcohol and Drug Abuse Patient Records regulations: The Federal rules restrict any use of the information to criminally investigate or prosecute any alcohol or drug abuse patient.[facility] HospitalIn the event this information is protected by the Federal Confidentiality of Alcohol and Drug Abuse Patient Records regulations: The Federal rules restrict any use of the information to criminally investigate or prosecute any alcohol or drug abuse patient.[facility] HospitalIn the event this information is protected by the Federal Confidentiality of Alcohol and Drug Abuse Patient Records regulations: The Federal rules restrict any use of the information to criminally investigate or prosecute any alcohol or drug abuse patient.[facility] HospitalIn the event this information is protected by the Federal Confidentiality of Alcohol and Drug Abuse Patient Records regulations: The Federal rules restrict any use of the information to criminally investigate or prosecute any alcohol or drug abuse patient.[facility] HospitalIn the event this information is protected by the Federal Confidentiality of Alcohol and Drug Abuse Patient Records regulations: The Federal rules restrict any use of the information to criminally investigate or prosecute any alcohol or drug abuse patient.[facility] HospitalIn the event this information is protected by the Federal Confidentiality of Alcohol and Drug Abuse Patient Records regulations: The Federal rules restrict any use of the information to criminally investigate or prosecute any alcohol or drug abuse patient.[facility] HospitalIn the event this information is protected by the Federal Confidentiality of Alcohol and Drug Abuse Patient Records regulations: The Federal rules restrict any use of the information to criminally investigate or prosecute any alcohol or drug abuse patient.[facility] HospitalIn the event this information is protected by the Federal Confidentiality of Alcohol and Drug Abuse Patient Records regulations: The Federal rules restrict any use of the information to criminally investigate or prosecute any alcohol or drug abuse patient.[facility] HospitalIn the event this information is protected by the Federal Confidentiality of Alcohol and Drug Abuse Patient Records regulations: The Federal rules restrict any use of the information to criminally investigate or prosecute any alcohol or drug abuse patient.[facility] HospitalIn the event this information is protected by the Federal Confidentiality of Alcohol and Drug Abuse Patient Records regulations: The Federal rules restrict any use of the information to criminally investigate or prosecute any alcohol or drug abuse patient.[facility] HospitalIn the event this information is protected by the Federal Confidentiality of Alcohol and Drug Abuse Patient Records regulations: The Federal rules restrict any use of the information to criminally investigate or prosecute any alcohol or drug abuse patient.[facility] HospitalIn the event this information is protected by the Federal Confidentiality of Alcohol and Drug Abuse Patient Records regulations: The Federal rules restrict any use of the information to criminally investigate or prosecute any alcohol or drug abuse patient.[facility] HospitalIn the event this information is protected by the Federal Confidentiality of Alcohol and Drug Abuse Patient Records regulations: The Federal rules restrict any use of the information to criminally investigate or prosecute any alcohol or drug abuse patient.[facility] HospitalIn the event this information is protected by the Federal Confidentiality of Alcohol and Drug Abuse Patient Records regulations: The Federal rules restrict any use of the information to criminally investigate or prosecute any alcohol or drug abuse patient.[facility] HospitalIn the event this information is protected by the Federal Confidentiality of Alcohol and Drug Abuse Patient Records regulations: The Federal rules restrict any use of the information to criminally investigate or prosecute any alcohol or drug abuse patient.[facility] HospitalIn the event this information is protected by the Federal Confidentiality of Alcohol and Drug Abuse Patient Records regulations: The Federal rules restrict any use of the information to criminally investigate or prosecute any alcohol or drug abuse patient.[facility] HospitalIn the event this information is protected by the Federal Confidentiality of Alcohol and Drug Abuse Patient Records regulations: The Federal rules restrict any use of the information to criminally investigate or prosecute any alcohol or drug abuse patient.[facility] HospitalIn the event this information is protected by the Federal Confidentiality of Alcohol and Drug Abuse Patient Records regulations: The Federal rules restrict any use of the information to criminally investigate or prosecute any alcohol or drug abuse patient.[facility] HospitalIn the event this information is protected by the Federal Confidentiality of Alcohol and Drug Abuse Patient Records regulations: The Federal rules restrict any use of the information to criminally investigate or prosecute any alcohol or drug abuse patient.[facility] HospitalIn the event this information is protected by the Federal Confidentiality of Alcohol and Drug Abuse Patient Records regulations: The Federal rules restrict any use of the information to criminally investigate or prosecute any alcohol or drug abuse patient.[facility] HospitalIn the event this information is protected by the Federal Confidentiality of Alcohol and Drug Abuse Patient Records regulations: The Federal rules restrict any use of the information to criminally investigate or prosecute any alcohol or drug abuse patient.[facility] HospitalIn the event this information is protected by the Federal Confidentiality of Alcohol and Drug Abuse Patient Records regulations: The Federal rules restrict any use of the information to criminally investigate or prosecute any alcohol or drug abuse patient.[facility] HospitalIn the event this information is protected by the Federal Confidentiality of Alcohol and Drug Abuse Patient Records regulations: The Federal rules restrict any use of the information to criminally investigate or prosecute any alcohol or drug abuse patient.[facility] HospitalIn the event this information is protected by the Federal Confidentiality of Alcohol and Drug Abuse Patient Records regulations: The Federal rules restrict any use of the information to criminally investigate or prosecute any alcohol or drug abuse patient.[facility] HospitalIn the event this information is protected by the Federal Confidentiality of Alcohol and Drug Abuse Patient Records regulations: The Federal rules restrict any use of the information to criminally investigate or prosecute any alcohol or drug abuse patient.[facility] HospitalIn the event this information is protected by the Federal Confidentiality of Alcohol and Drug Abuse Patient Records regulations: The Federal rules restrict any use of the information to criminally investigate or prosecute any alcohol or drug abuse patient.[facility] HospitalIn the event this information is protected by the Federal Confidentiality of Alcohol and Drug Abuse Patient Records regulations: The Federal rules restrict any use of the information to criminally investigate or prosecute any alcohol or drug abuse patient.[facility] HospitalIn the event this information is protected by the Federal Confidentiality of Alcohol and Drug Abuse Patient Records regulations: The Federal rules restrict any use of the information to criminally investigate or prosecute any alcohol or drug abuse patient.[facility] HospitalIn the event this information is protected by the Federal Confidentiality of Alcohol and Drug Abuse Patient Records regulations: The Federal rules restrict any use of the information to criminally investigate or prosecute any alcohol or drug abuse patient.[facility] HospitalIn the event this information is protected by the Federal Confidentiality of Alcohol and Drug Abuse Patient Records regulations: The Federal rules restrict any use of the information to criminally investigate or prosecute any alcohol or drug abuse patient.[facility] HospitalIn the event this information is protected by the Federal Confidentiality of Alcohol and Drug Abuse Patient Records regulations: The Federal rules restrict any use of the information to criminally investigate or prosecute any alcohol or drug abuse patient.[facility] HospitalIn the event this information is protected by the Federal Confidentiality of Alcohol and Drug Abuse Patient Records regulations: The Federal rules restrict any use of the information to criminally investigate or prosecute any alcohol or drug abuse patient.[facility] HospitalIn the event this information is protected by the Federal Confidentiality of Alcohol and Drug Abuse Patient Records regulations: The Federal rules restrict any use of the information to criminally investigate or prosecute any alcohol or drug abuse patient.[facility] HospitalIn the event this information is protected by the Federal Confidentiality of Alcohol and Drug Abuse Patient Records regulations: The Federal rules restrict any use of the information to criminally investigate or prosecute any alcohol or drug abuse patient.[facility] HospitalIn the event this information is protected by the Federal Confidentiality of Alcohol and Drug Abuse Patient Records regulations: The Federal rules restrict any use of the information to criminally investigate or prosecute any alcohol or drug abuse patient.[facility] HospitalIn the event this information is protected by the Federal Confidentiality of Alcohol and Drug Abuse Patient Records regulations: The Federal rules restrict any use of the information to criminally investigate or prosecute any alcohol or drug abuse patient.[facility] HospitalIn the event this information is protected by the Federal Confidentiality of Alcohol and Drug Abuse Patient Records regulations: The Federal rules restrict any use of the information to criminally investigate or prosecute any alcohol or drug abuse patient.[facility] HospitalIn the event this information is protected by the Federal Confidentiality of Alcohol and Drug Abuse Patient Records regulations: The Federal rules restrict any use of the information to criminally investigate or prosecute any alcohol or drug abuse patient.[facility] HospitalIn the event this information is protected by the Federal Confidentiality of Alcohol and Drug Abuse Patient Records regulations: The Federal rules restrict any use of the information to criminally investigate or prosecute any alcohol or drug abuse patient.[facility] HospitalIn the event this information is protected by the Federal Confidentiality of Alcohol and Drug Abuse Patient Records regulations: The Federal rules restrict any use of the information to criminally investigate or prosecute any alcohol or drug abuse patient.[facility] HospitalIn the event this information is protected by the Federal Confidentiality of Alcohol and Drug Abuse Patient Records regulations: The Federal rules restrict any use of the information to criminally investigate or prosecute any alcohol or drug abuse patient.St. [facility] HospitalIn the event this information is protected by the Federal Confidentiality of Alcohol and Drug Abuse Patient Records regulations: The Federal rules restrict any use of the information to criminally investigate or prosecute any alcohol or drug abuse patient.[facility] HospitalIn the event this information is protected by the Federal Confidentiality of Alcohol and Drug Abuse Patient Records regulations: The Federal rules restrict any use of the information to criminally investigate or prosecute any alcohol or drug abuse patient.[facility] HospitalIn the event this information is protected by the Federal Confidentiality of Alcohol and Drug Abuse Patient Records regulations: The Federal rules restrict any use of the information to criminally investigate or prosecute any alcohol or drug abuse patient.[facility] HospitalIn the event this information is protected by the Federal Confidentiality of Alcohol and Drug Abuse Patient Records regulations: The Federal rules restrict any use of the information to criminally investigate or prosecute any alcohol or drug abuse patient.[facility] HospitalIn the event this information is protected by the Federal Confidentiality of Alcohol and Drug Abuse Patient Records regulations: The Federal rules restrict any use of the information to criminally investigate or prosecute any alcohol or drug abuse patient.[facility] HospitalIn the event this information is protected by the Federal Confidentiality of Alcohol and Drug Abuse Patient Records regulations: The Federal rules restrict any use of the information to criminally investigate or prosecute any alcohol or drug abuse patient.[facility] HospitalIn the event this information is protected by the Federal Confidentiality of Alcohol and Drug Abuse Patient Records regulations: The Federal rules restrict any use of the information to criminally investigate or prosecute any alcohol or drug abuse patient.[facility] HospitalIn the event this information is protected by the Federal Confidentiality of Alcohol and Drug Abuse Patient Records regulations: The Federal rules restrict any use of the information to criminally investigate or prosecute any alcohol or drug abuse patient.[facility] HospitalIn the event this information is protected by the Federal Confidentiality of Alcohol and Drug Abuse Patient Records regulations: The Federal rules restrict any use of the information to criminally investigate or prosecute any alcohol or drug abuse patient.[facility] HospitalIn the event this information is protected by the Federal Confidentiality of Alcohol and Drug Abuse Patient Records regulations: The Federal rules restrict any use of the information to criminally investigate or prosecute any alcohol or drug abuse patient.[facility] HospitalIn the event this information is protected by the Federal Confidentiality of Alcohol and Drug Abuse Patient Records regulations: The Federal rules restrict any use of the information to criminally investigate or prosecute any alcohol or drug abuse patient.[facility] HospitalIn the event this information is protected by the Federal Confidentiality of Alcohol and Drug Abuse Patient Records regulations: The Federal rules restrict any use of the information to criminally investigate or prosecute any alcohol or drug abuse patient.[facility] HospitalIn the event this information is protected by the Federal Confidentiality of Alcohol and Drug Abuse Patient Records regulations: The Federal rules restrict any use of the information to criminally investigate or prosecute any alcohol or drug abuse patient.[facility] HospitalIn the event this information is protected by the Federal Confidentiality of Alcohol and Drug Abuse Patient Records regulations: The Federal rules restrict any use of the information to criminally investigate or prosecute any alcohol or drug abuse patient.[facility] HospitalIn the event this information is protected by the Federal Confidentiality of Alcohol and Drug Abuse Patient Records regulations: The Federal rules restrict any use of the information to criminally investigate or prosecute any alcohol or drug abuse patient.[facility] HospitalIn the event this information is protected by the Federal Confidentiality of Alcohol and Drug Abuse Patient Records regulations: The Federal rules restrict any use of the information to criminally investigate or prosecute any alcohol or drug abuse patient.[facility] HospitalIn the event this information is protected by the Federal Confidentiality of Alcohol and Drug Abuse Patient Records regulations: The Federal rules restrict any use of the information to criminally investigate or prosecute any alcohol or drug abuse patient.[facility] HospitalIn the event this information is protected by the Federal Confidentiality of Alcohol and Drug Abuse Patient Records regulations: The Federal rules restrict any use of the information to criminally investigate or prosecute any alcohol or drug abuse patient.[facility] HospitalIn the event this information is protected by the Federal Confidentiality of Alcohol and Drug Abuse Patient Records regulations: The Federal rules restrict any use of the information to criminally investigate or prosecute any alcohol or drug abuse patient.[facility] HospitalIn the event this information is protected by the Federal Confidentiality of Alcohol and Drug Abuse Patient Records regulations: The Federal rules restrict any use of the information to criminally investigate or prosecute any alcohol or drug abuse patient.[facility] HospitalIn the event this information is protected by the Federal Confidentiality of Alcohol and Drug Abuse Patient Records regulations: The Federal rules restrict any use of the information to criminally investigate or prosecute any alcohol or drug abuse patient.[facility] HospitalIn the event this information is protected by the Federal Confidentiality of Alcohol and Drug Abuse Patient Records regulations: The Federal rules restrict any use of the information to criminally investigate or prosecute any alcohol or drug abuse patient.[facility] HospitalIn the event this information is protected by the Federal Confidentiality of Alcohol and Drug Abuse Patient Records regulations: The Federal rules restrict any use of the information to criminally investigate or prosecute any alcohol or drug abuse patient.[facility] HospitalIn the event this information is protected by the Federal Confidentiality of Alcohol and Drug Abuse Patient Records regulations: The Federal rules restrict any use of the information to criminally investigate or prosecute any alcohol or drug abuse patient.[facility] HospitalIn the event this information is protected by the Federal Confidentiality of Alcohol and Drug Abuse Patient Records regulations: The Federal rules restrict any use of the information to criminally investigate or prosecute any alcohol or drug abuse patient.[facility] HospitalIn the event this information is protected by the Federal Confidentiality of Alcohol and Drug Abuse Patient Records regulations: The Federal rules restrict any use of the information to criminally investigate or prosecute any alcohol or drug abuse patient.[facility] HospitalIn the event this information is protected by the Federal Confidentiality of Alcohol and Drug Abuse Patient Records regulations: The Federal rules restrict any use of the information to criminally investigate or prosecute any alcohol or drug abuse patient.[facility] HospitalIn the event this information is protected by the Federal Confidentiality of Alcohol and Drug Abuse Patient Records regulations: The Federal rules restrict any use of the information to criminally investigate or prosecute any alcohol or drug abuse patient.[facility] HospitalIn the event this information is protected by the Federal Confidentiality of Alcohol and Drug Abuse Patient Records regulations: The Federal rules restrict any use of the information to criminally investigate or prosecute any alcohol or drug abuse patient.[facility] HospitalIn the event this information is protected by the Federal Confidentiality of Alcohol and Drug Abuse Patient Records regulations: The Federal rules restrict any use of the information to criminally investigate or prosecute any alcohol or drug abuse patient.[facility] HospitalIn the event this information is protected by the Federal Confidentiality of Alcohol and Drug Abuse Patient Records regulations: The Federal rules restrict any use of the information to criminally investigate or prosecute any alcohol or drug abuse patient.[facility] HospitalIn the event this information is protected by the Federal Confidentiality of Alcohol and Drug Abuse Patient Records regulations: The Federal rules restrict any use of the information to criminally investigate or prosecute any alcohol or drug abuse patient.[facility] HospitalIn the event this information is protected by the Federal Confidentiality of Alcohol and Drug Abuse Patient Records regulations: The Federal rules restrict any use of the information to criminally investigate or prosecute any alcohol or drug abuse patient.[facility] HospitalIn the event this information is protected by the Federal Confidentiality of Alcohol and Drug Abuse Patient Records regulations: The Federal rules restrict any use of the information to criminally investigate or prosecute any alcohol or drug abuse patient.[facility] HospitalIn the event this information is protected by the Federal Confidentiality of Alcohol and Drug Abuse Patient Records regulations: The Federal rules restrict any use of the information to criminally investigate or prosecute any alcohol or drug abuse patient.[facility] HospitalIn the event this information is protected by the Federal Confidentiality of Alcohol and Drug Abuse Patient Records regulations: The Federal rules restrict any use of the information to criminally investigate or prosecute any alcohol or drug abuse patient.[facility] HospitalIn the event this information is protected by the Federal Confidentiality of Alcohol and Drug Abuse Patient Records regulations: The Federal rules restrict any use of the information to criminally investigate or prosecute any alcohol or drug abuse patient.[facility] HospitalIn the event this information is protected by the Federal Confidentiality of Alcohol and Drug Abuse Patient Records regulations: The Federal rules restrict any use of the information to criminally investigate or prosecute any alcohol or drug abuse patient.[facility] HospitalIn the event this information is protected by the Federal Confidentiality of Alcohol and Drug Abuse Patient Records regulations: The Federal rules restrict any use of the information to criminally investigate or prosecute any alcohol or drug abuse patient.[facility] HospitalIn the event this information is protected by the Federal Confidentiality of Alcohol and Drug Abuse Patient Records regulations: The Federal rules restrict any use of the information to criminally investigate or prosecute any alcohol or drug abuse patient.[facility] HospitalIn the event this information is protected by the Federal Confidentiality of Alcohol and Drug Abuse Patient Records regulations: The Federal rules restrict any use of the information to criminally investigate or prosecute any alcohol or drug abuse patient.[facility] HospitalIn the event this information is protected by the Federal Confidentiality of Alcohol and Drug Abuse Patient Records regulations: The Federal rules restrict any use of the information to criminally investigate or prosecute any alcohol or drug abuse patient.[facility] HospitalIn the event this information is protected by the Federal Confidentiality of Alcohol and Drug Abuse Patient Records regulations: The Federal rules restrict any use of the information to criminally investigate or prosecute any alcohol or drug abuse patient.[facility] HospitalIn the event this information is protected by the Federal Confidentiality of Alcohol and Drug Abuse Patient Records regulations: The Federal rules restrict any use of the information to criminally investigate or prosecute any alcohol or drug abuse patient.[facility] HospitalIn the event this information is protected by the Federal Confidentiality of Alcohol and Drug Abuse Patient Records regulations: The Federal rules restrict any use of the information to criminally investigate or prosecute any alcohol or drug abuse patient.[facility] HospitalIn the event this information is protected by the Federal Confidentiality of Alcohol and Drug Abuse Patient Records regulations: The Federal rules restrict any use of the information to criminally investigate or prosecute any alcohol or drug abuse patient.[facility] HospitalIn the event this information is protected by the Federal Confidentiality of Alcohol and Drug Abuse Patient Records regulations: The Federal rules restrict any use of the information to criminally investigate or prosecute any alcohol or drug abuse patient.[facility] HospitalIn the event this information is protected by the Federal Confidentiality of Alcohol and Drug Abuse Patient Records regulations: The Federal rules restrict any use of the information to criminally investigate or prosecute any alcohol or drug abuse patient.[facility] HospitalIn the event this information is protected by the Federal Confidentiality of Alcohol and Drug Abuse Patient Records regulations: The Federal rules restrict any use of the information to criminally investigate or prosecute any alcohol or drug abuse patient.[facility] HospitalIn the event this information is protected by the Federal Confidentiality of Alcohol and Drug Abuse Patient Records regulations: The Federal rules restrict any use of the information to criminally investigate or prosecute any alcohol or drug abuse patient.[facility] HospitalIn the event this information is protected by the Federal Confidentiality of Alcohol and Drug Abuse Patient Records regulations: The Federal rules restrict any use of the information to criminally investigate or prosecute any alcohol or drug abuse patient.[facility] HospitalIn the event this information is protected by the Federal Confidentiality of Alcohol and Drug Abuse Patient Records regulations: The Federal rules restrict any use of the information to criminally investigate or prosecute any alcohol or drug abuse patient.[facility] HospitalIn the event this information is protected by the Federal Confidentiality of Alcohol and Drug Abuse Patient Records regulations: The Federal rules restrict any use of the information to criminally investigate or prosecute any alcohol or drug abuse patient.[facility] HospitalIn the event this information is protected by the Federal Confidentiality of Alcohol and Drug Abuse Patient Records regulations: The Federal rules restrict any use of the information to criminally investigate or prosecute any alcohol or drug abuse patient.[facility] HospitalIn the event this information is protected by the Federal Confidentiality of Alcohol and Drug Abuse Patient Records regulations: The Federal rules restrict any use of the information to criminally investigate or prosecute any alcohol or drug abuse patient.[facility] HospitalIn the event this information is protected by the Federal Confidentiality of Alcohol and Drug Abuse Patient Records regulations: The Federal rules restrict any use of the information to criminally investigate or prosecute any alcohol or drug abuse patient.[facility] HospitalIn the event this information is protected by the Federal Confidentiality of Alcohol and Drug Abuse Patient Records regulations: The Federal rules restrict any use of the information to criminally investigate or prosecute any alcohol or drug abuse patient.[facility] HospitalIn the event this information is protected by the Federal Confidentiality of Alcohol and Drug Abuse Patient Records regulations: The Federal rules restrict any use of the information to criminally investigate or prosecute any alcohol or drug abuse patient.[facility] HospitalIn the event this information is protected by the Federal Confidentiality of Alcohol and Drug Abuse Patient Records regulations: The Federal rules restrict any use of the information to criminally investigate or prosecute any alcohol or drug abuse patient.[facility] Reason for Visit (unrecogniz ed section and content) Reason Comments Established Patient Specialty Diagnoses / Procedures Referred By Contac t Referred To Contact Diagnoses Prostate cancer (HCC) Procedures LEUPROLIDE [place] [phone] [place] [facility] [place] [address] [place] [address] Referral ID Status Reason Start Date Expiration Date V isits Requested Visits Authorized [id number] Authorized 08/11/2022 11/08/2023 4 5 Reason Comments Injections Reason Onset Date Comments Refill Request 02/28/2022 Reason Comments Results Specialty Diagnoses / Procedures Referred By Contac t Referred To Contact CT IMAGING Diagnoses Prostate cancer (HCC) Procedures CT PELVIS W IVCON CT PELVIS W/CONTRAST MATERIAL Vazquez Page, DO [address] [place] [address] Ct Imaging Referral ID Status Reason Start Date Expiration Date V isits Requested Visits Authorized [id number] Closed Auto-Generate d Referral 05/19/2022 06/18/2023 1 1 Reason Comments Follow Up scans Reason Comments Prostate Cancer Specialty Diagnoses / Procedures Referred By Contac t Referred To Contact Radiation Oncology Diagnoses Prostate cancer (HCC) Procedures RAD/ONC CONSULT OFFICE/OUTPATIENT [facility] 60-74 MINUTES Vazquez Page, DO [address] [place] [address] [place] [address] [place] [address] Referral ID Status Reason Start Date Expiration Date V isits Requested Visits Authorized [id number] Closed PCP Requested Referral 06/19/2022 06/19/2023 1 1 Reason Onset Date Comments Refill Request 07/14/2022 Reason Comments Consult Reason Comments Established Patient Follow up to prostat e MRI Reason Comments Imm/Inj Referral ID Status Reason Start Date Expiration Date V isits Requested Visits Authorized [id number] Authorized 08/11/2022 09/27/2022 99 99 Reason Comments Injections Reason Comments Benefits Investigation Reason Comments Med Change Request Reason Comments Radiotherapy On-treatment Visit Reason Comments Refill Request Reason Comments Established Patient Knee Pain Injections Reason Comments New Pain Reason Comments Established Patient Pain Specialty Diagnoses / Procedures Referred By Contac t Referred To Contact Rheumatology Diagnoses Arthritis Procedures CONSULT TO RHEUM/IMMUN DISEASE OFFICE/OUTPATIENT [facility] 60-[place] [address] [place] [address] Referral ID Status Reason Start Date Expiration Date V isits Requested Visits Authorized [id number] Closed PCP Requested Referral 07/21/2023 07/20/2024 1 1 Reason Comments Appointment Reason Comments Results Reason Comments Orders Specialty Diagnoses / Procedures Referred By Contac t Referred To Contact Urology Diagnoses Prostate cancer (HCC) Bladder neck obstruction Procedures CONSULT TO UROLOGY OFFICE/OUTPATIENT [facility] 60 [place] [address] [place] [phone] Referral ID Status Reason Start Date Expiration Date V isits Requested Visits Authorized [id number] Closed PCP Requested Referral 12/17/2023 12/16/2024 1 [...] W/O & W/[place] [address] [place] [address] [facility] [place] [address] Referral ID Status Reason Start Date Expiration Date V isits Requested Visits Authorized [id number] Closed Auto-Generate d Referral 01/12/2024 02/11/2024 2 1 Reason Comments Established Patient Post Op Reason Comments Radio Gen RMP Specialty Diagnoses / Procedures Referred By Contac t Referred To Contact XR IMAGING Diagnoses Pain Procedures XR SHOULDER GENERAL 3V OR MORE AP/TRUE AP/OTHER RIGHT RADEX SHOULDER COMPLETE MINIMUM 2 VIEWS Flynn Julian, PA-C [address] [address] Xr Imaging [facility] Referral ID Status Reason Start Date Expiration Date V isits Requested Visits Authorized [id number] Closed Auto-Generate d Referral 09/11/2022 10/11/2023 1 [...] HAND MINIMUM 3 [place] [address] [place] [address] [place] [address] Referral ID Status Reason Start Date Expiration Date V isits Requested Visits Authorized [id number] Closed Auto-Generate d Referral 08/02/2024 09/01/2025 1 1 Reason Comments Established Patient Pain Injections Reason Comments Knee Pain Established Patient Reason Comments New Reason Comments Radiology XR Specialty Diagnoses / Procedures Referred By Traci t Referred To Contact XR IMAGING Diagnoses Left hip pain Procedures XR LEG FRONTAL HIP TO ANKLE MECHANICAL AXIS BONE LENGTH STUDIES Mayra Buenrostro PA-C [address] [address] Phone: tel: fax: [place] [address] Referral ID Status Reason Start Date Expiration Date V isits Requested Visits Authorized [id number] Closed Auto-Generate d Referral 04/18/2025 05/18/2026 1 1 Care Teams (unrecognized sec tion and content) Smoking Pipe Driller And Threader Relationship Specialty Start Date End Date Norma Davies, BULB PLANTER.ROCKET TEST FIRE WORKER [address] [place] [id number] PCP - General Family Practice 08/03/13 Christy Sierra MD [address] [place], [place] [phone] Primary Staff Physician Cardiology 12/14/18 Smoking Pipe Driller And Threader Relationship Specialty Start Date End Date Norma Davies, BULB PLANTER.ROCKET TEST FIRE WORKER [address] [place] [address] [phone] PCP - General Family Practice 08/03/13 Christy Sierra MD [address] [place], [place] [phone] Primary Staff Physician Cardiology 12/14/18 Smoking Pipe Driller And Threader Relationship Specialty Start Date End Date Norma Davies, BULB PLANTER.ROCKET TEST FIRE WORKER [address] [place] [address] [phone] PCP - General Family Practice 08/03/13 Christy Sierra MD [address] [place] [address] Primary Staff Physician Cardiology 12/14/18 Smoking Pipe Driller And Threader Relationship Specialty Start Date End Date Norma Davies, BULB PLANTER.ROCKET TEST FIRE WORKER [address] [place], [place] [phone] PCP - General Family Practice 08/03/13 Christy Sierra MD [address] [place] [id number] Primary Staff Physician Cardiology 12/14/18 Smoking Pipe Driller And Threader Relationship Specialty Start Date End Date Norma Davies, BULB PLANTER.ROCKET TEST FIRE WORKER [address] [place] [address] PCP - General Family Practice 08/03/13 Christy Sierra MD [address] [place] [phone] Primary Staff Physician Cardiology 12/14/18 Smoking Pipe Driller And Threader Relationship Specialty Start Date End Date Norma Davies, BULB PLANTER.ROCKET TEST FIRE WORKER [address] [place] [id number] PCP - General Family Practice 08/03/13 Christy Sierra MD [address] [place] [phone] Primary Staff Physician Cardiology 12/14/18 Smoking Pipe Driller And Threader Relationship Specialty Start Date End Date Norma Davies, BULB PLANTER.ROCKET TEST FIRE WORKER [address] [place], [place] [phone] PCP - General Family Practice 08/03/13 hCristy Sierra MD [address] [place] [id number] Primary Staff Physician Cardiology 12/14/18 Smoking Pipe Driller And Threader Relationship Specialty Start Date End Date Norma Davies, BULB PLANTER.ROCKET TEST FIRE WORKER [address] [place], [place] [phone] PCP - General Family Practice 08/03/13 Christy Sierra MD [address] [place], [place] [phone] Primary Staff Physician Cardiology 12/14/18 Smoking Pipe Driller And Threader Relationship Specialty Start Date End Date Norma Davies, BULB PLANTER.ROCKET TEST FIRE WORKER [address] [place], [place] [phone] PCP - General Family Practice 08/03/13 Christy Sierra MD [address] [place] [address] [phone] Primary Staff Physician Cardiology 12/14/18 Smoking Pipe Driller And Threader Relationship Specialty Start Date End Date Norma Davies, BULB PLANTER.ROCKET TEST FIRE WORKER [address] [place], [place] [id number] PCP - General Family Medicine 08/03/13 Christy Sierra MD [facility] [place] [address] Primary Staff Physician Cardiology 12/14/18 Smoking Pipe Driller And Threader Relationship Specialty Start Date End Date Norma Davies, BULB PLANTER.ROCKET TEST FIRE WORKER [address] [place] [address] PCP - General Family Medicine 08/03/13 Christy Sierra MD [address] [place] [address] Primary Staff Physician Cardiology 12/14/18 [place] [address] [place], [place] [id number] Radiation Oncology 06/23/22 Smoking Pipe Driller And Threader Relationship Specialty Start Date End Date Norma Davies, BULB PLANTER.ROCKET TEST FIRE WORKER [address] [id number] PCP - General Family Medicine 08/03/13 Christy Sierra MD [address] [place] [address] Primary Staff Physician Cardiology 12/14/18 [place] [address] [place] [address] Radiation Oncology 06/23/22 Smoking Pipe Driller And Threader Relationship Specialty Start Date End Date Norma Davies, BULB PLANTER.ROCKET TEST FIRE WORKER PCP - General Family Medicine 08/03/13 Christy Sierra MD [address] [place] [address] Primary Staff Physician Cardiology 12/14/18 [place] [address] [place] [address] Radiation Oncology 06/23/22 Smoking Pipe Driller And Threader Relationship Specialty Start Date End Date Norma Davies, BULB PLANTER.ROCKET TEST FIRE WORKER PCP - General Family Medicine 08/03/13 Christy Sierra MD [address] [place] [address] Primary Staff Physician Cardiology 12/14/18 [place] [address] [place] [address] Radiation Oncology 06/23/22 Smoking Pipe Driller And Threader Relationship Specialty Start Date End Date Norma Davies, BULB PLANTER.ROCKET TEST FIRE WORKER PCP - General Family Medicine 08/03/13 Christy Sierra MD [address] [place] [address] Primary Staff Physician Cardiology 12/14/18 [place] [address] [place] [address] Radiation Oncology 06/23/22 Smoking Pipe Driller And Threader Relationship Specialty Start Date End Date Norma Davies, BULB PLANTER.ROCKET TEST FIRE WORKER PCP - General Family Medicine 08/03/13 Christy Sierra MD [address] [place] [address] Primary Staff Physician Cardiology 12/14/18 [place] [address] [place] [address] Radiation Oncology 06/23/22 Smoking Pipe Driller And Threader Relationship Specialty Start Date End Date Norma Davies, BULB PLANTER.ROCKET TEST FIRE WORKER [address] [place] [address] PCP - General Family Medicine 08/03/13 Christy Sierar MD [address] [place] [address] Primary Staff Physician Cardiology 12/14/18 [place] [address] [place] [address] Radiation Oncology 06/23/22 Smoking Pipe Driller And Threader Relationship Specialty Start Date End Date Norma Davies, BULB PLANTER.ROCKET TEST FIRE WORKER [address] [place] [address] [id number] PCP - General Family Medicine 08/03/13 Christy Sierra MD [address] [place] [address] Primary Staff Physician Cardiology 12/14/18 [place] [address] [place] [address] Radiation Oncology 06/23/22 Smoking Pipe Driller And Threader Relationship Specialty Start Date End Date Norma Davies, BULB PLANTER.ROCKET TEST FIRE WORKER [address] [place], [place] [id number] PCP - General Family Medicine 08/03/13 Christy Sierra MD [address] [place] [address] Primary Staff Physician Cardiology 12/14/18 [place] [address] [place] [address] Radiation Oncology 06/23/22 Smoking Pipe Driller And Threader Relationship Specialty Start Date End Date Norma Davies, BULB PLANTER.ROCKET TEST FIRE WORKER [address] [place], [place] [phone] PCP - General Family Medicine 08/03/13 Christy Sierra MD [address] [place] [address] Primary Staff Physician Cardiology 12/14/18 [place] [address] [place] [address] Radiation Oncology 06/23/22 Smoking Pipe Driller And Threader Relationship Specialty Start Date End Date Norma Davies, BULB PLANTER.ROCKET TEST FIRE WORKER [address] [place], [place] [phone] PCP - General Family Medicine 08/03/13 Christy Sierra MD [address] [place] [address] Primary Staff Physician Cardiology 12/14/18 [place] [address] [place] [address] Radiation Oncology 06/23/22 Rohini Cody LISW [address] [place] [address] Data Base Design Analyst Oncology 11/07/22 Smoking Pipe Driller And Threader Relationship Specialty Start Date End Date Norma Davies, BULB PLANTER.ROCKET TEST FIRE WORKER [address] [place], [place] [id number] PCP - General Family Medicine 08/03/13 Christy Sierra MD [address] [place] [address] Primary Staff Physician Cardiology 12/14/18 [place] [address] [place] [address] Radiation Oncology 06/23/22 Rohini Cody LISW [address] [place] [address] Data Base Design Analyst Oncology 11/07/22 Smoking Pipe Driller And Threader Relationship Specialty Start Date End Date Norma Davies, BULB PLANTER.ROCKET TEST FIRE WORKER [address] [place] [address] PCP - General Family Medicine 08/03/13 Christy Sierra MD [address] [place] [address] Primary Staff Physician Cardiology 12/14/18 [place] [address] [place] [address] Radiation Oncology 06/23/22 Rohini Cody LISW [address] [place] [address] Data Base Design Analyst Oncology 11/07/22 Smoking Pipe Driller And Threader Relationship Specialty Start Date End Date Norma Davies, BULB PLANTER.ROCKET TEST FIRE WORKER [address] [place], [place] [phone] PCP - General Family Medicine 08/03/13 [place] [address] [place] [address] Primary Staff Physician Cardiology 12/14/18 [place] [address] [place] [address] Radiation Oncology 06/23/22 Rohini Cody LISW [address] [place] [address] Data Base Design Analyst Oncology 11/07/22 Smoking Pipe Driller And Threader Relationship Specialty Start Date End Date Norma Davies, BULB PLANTER.ROCKET TEST FIRE WORKER [address] [place] [address] PCP - General Family Medicine 08/03/13 Christy Sierra MD [address] [place] [address] Primary Staff Physician Cardiology 12/14/18 [place] [address] [place] [address] Radiation Oncology 06/23/22 Rohini Cody LISW [address] [place] [address] Data Base Design Analyst Oncology 11/07/22 Smoking Pipe Driller And Threader Relationship Specialty Start Date End Date Norma Davies, BULB PLANTER.ROCKET TEST FIRE WORKER [address] [place], [place] [phone] PCP - General Family Medicine 08/03/13 Christy Sierra MD [address] [place] [address] Primary Staff Physician Cardiology 12/14/18 [place] [address] [place] [address] Radiation Oncology 06/23/22 Rohini Cody LISW [address] [place] [address] Data Base Design Analyst Oncology 11/07/22 Smoking Pipe Driller And Threader Relationship Specialty Start Date End Date Norma Davies, BULB PLANTER.ROCKET TEST FIRE WORKER [address] [facility] [address] [place] [address] [phone] PCP - General Family Medicine 08/03/13 Christy Sierra MD [address] [place] [address] Primary Staff Physician Cardiology 12/14/18 [place] [address] [place] [address] Radiation Oncology 06/23/22 Rohini Cody LISW [address] [place] [address] Data Base Design Analyst Oncology 11/07/22 Smoking Pipe Driller And Threader Relationship Specialty Start Date End Date Norma Davies, BULB PLANTER.ROCKET TEST FIRE WORKER [address] [facility] [address] [place], [place] [phone] PCP - General Family Medicine 08/03/13 Christy Sierra MD [address] [place] [address] Primary Staff Physician Cardiology 12/14/18 [place] [address] [place] [address] Radiation Oncology 06/23/22 Rohini Cody LISW 37693 [place] [address] Data Base Design Analyst Oncology 11/07/22 Smoking Pipe Driller And Threader Relationship Specialty Start Date End Date Norma Davies, BULB PLANTER.ROCKET TEST FIRE WORKER [address] [place] [address] PCP - General Family Medicine 08/03/13 Christy Sierra MD [address] [place] [address] Primary Staff Physician Cardiology 12/14/18 [place] [address] [place] [address] Radiation Oncology 06/23/22 Rohini Cody LISW [address] [place] [address] Data Base Design Analyst Oncology 11/07/22 Smoking Pipe Driller And Threader Relationship Specialty Start Date End Date Norma Davies, BULB PLANTER.ROCKET TEST FIRE WORKER [address] [place] [address] PCP - General Family Medicine 08/03/13 Christy Sierra MD [address] [place] [address] Primary Staff Physician Cardiology 12/14/18 [place] [address] [place] [address] Radiation Oncology 06/23/22 Rohini Cody LISW [address] [place] [address] Data Base Design Analyst Oncology 11/07/22 Smoking Pipe Driller And Threader Relationship Specialty Start Date End Date Norma Davies, BULB PLANTER.ROCKET TEST FIRE WORKER [address] [place] [address] PCP - General Family Medicine 08/03/13 Christy Sierra MD [address] [place], [place] [phone] Primary Staff Physician Cardiology 12/14/18 [place] [address] [place] [address] Radiation Oncology 06/23/[address] [facility] [address] [place] [address] Data Base Design Analyst Oncology 11/07/22 Smoking Pipe Driller And Threader Relationship Specialty Start Date End Date Norma Davies, BULB PLANTER.ROCKET TEST FIRE WORKER [address] [facility] [address] [place] [address] [id number] PCP - General Family Medicine 08/03/13 Christy Sierra MD [address] [place] [address] Primary Staff Physician Cardiology 12/14/18 [place] [address] [place] [address] Radiation Oncology 06/23/22 Rohini Cody [facility] [address] [place] [address] Data Base Design Analyst Oncology 11/07/22 Smoking Pipe Driller And Threader Relationship Specialty Start Date End Date Norma Davies, BULB PLANTER.ROCKET TEST FIRE WORKER [address] [place], [place] [phone] PCP - General Family Medicine 08/03/13 Christy Sierra MD [address] [place] [address] Primary Staff Physician Cardiology 12/14/18 [place] [address] [place] [address] Radiation Oncology 06/23/22 Rohini Cody LISW [address] [place] [address] Data Base Design Analyst Oncology 11/07/22 Smoking Pipe Driller And Threader Relationship Specialty Start Date End Date Norma Davies, BULB PLANTER.ROCKET TEST FIRE WORKER [address] [place] [address] PCP - General Family Medicine 08/03/13 Christy Sierra MD [address] [place] [address] Primary Staff Physician Cardiology 12/14/18 [place] [address] [place] [address] Radiation Oncology 06/23/22 Rohini Cody LISW [address] [place] [address] Data Base Design Analyst Oncology 11/07/22 Smoking Pipe Driller And Threader Relationship Specialty Start Date End Date Norma Davies, BULB PLANTER.ROCKET TEST FIRE WORKER [address] [place] [address] PCP - General Family Medicine 08/03/13 Christy Sierra MD [address] [place] [address] Primary Staff Physician Cardiology 12/14/18 [place] [address] [place] [address] Radiation Oncology 06/23/22 Rohini Cody LISW [address] [place] [address] Data Base Design Analyst Oncology 11/07/22 Smoking Pipe Driller And Threader Relationship Specialty Start Date End Date Norma Davies, BULB PLANTER.ROCKET TEST FIRE WORKER [address] [place], [place] [phone] PCP - General Family Medicine 08/03/13 [place] [address] [place] [address] [phone] Primary Staff Physician Cardiology 12/14/18 [place] [address] [place] [address] Radiation Oncology 06/23/22 Rohini Cody LISW [address]88[address] [place] [address] Data Base Design Analyst Oncology 11/07/22 Team Status: Active Member Role Status Dates Dr. Rodger Nassar MD Family Provider Active Norma Davies FBI PROFILER, FBI PROFILER-C Primary Care Provider Active Team Status: Inactive Member Role Status Dates Norma Davies FBI PROFILER, FBI PROFILER-C Primary Care Pr ovider, Attending Provider, Referring Provider Active Team Status: Inactive Member Role Status Dates Norma Davies FBI PROFILER, FBI PROFILER-C Primary Care Provider, Attend ing Provider Active Smoking Pipe Driller And Threader Relationship Specialty Start Date End Date Norma Davies, BULB PLANTER.ROCKET TEST FIRE WORKER [address] [address] PCP - General Family Medicine 08/03/13 [place] [address] [place] [address] Primary Staff Physician Cardiology 12/14/18 [place] [address] [place] [address] Radiation Oncology 06/23/22 Rohini Cody LISW [address] [place] [address] Data Base Design Analyst Oncology 11/07/22 Smoking Pipe Driller And Threader Relationship Specialty Start Date End Date Norma Davies, BULB PLANTER.ROCKET TEST FIRE WORKER [address] [place], [place] [id number] PCP - General Family Medicine 08/03/13 Christy Sierra MD [address] [place], [place] [phone] Primary Staff Physician Cardiology 12/14/18 [place] [address] [place] [address] Radiation Oncology 06/23/22 Rohini Cody LISW [address] [place] [address] Data Base Design Analyst Oncology 11/07/22 Smoking Pipe Driller And Threader Relationship Specialty Start Date End Date Norma Davies, BULB PLANTER.ROCKET TEST FIRE WORKER [address] [place] [address] PCP - General Family Medicine 08/03/13 Christy Sierra MD [address] [place] [address] Primary Staff Physician Cardiology 12/14/18 [place] [address] [place] [address] Radiation Oncology 06/23/22 Rohini Cody LISW [address]138 [place] [address] Data Base Design Analyst Oncology 11/07/22 Smoking Pipe Driller And Threader Relationship Specialty Start Date End Date Norma Davies, BULB PLANTER.ROCKET TEST FIRE WORKER [address] [place], [place] [id number] PCP - General Family Medicine 08/03/13 Christy Sierra MD [address] [place] [address] Primary Staff Physician Cardiology 12/14/18 [place] [address] [place] [address] Radiation Oncology 06/23/22 Rohini Cody LISW 10698 [place] [address] Data Base Design Analyst Oncology 11/07/22 Smoking Pipe Driller And Threader Relationship Specialty Start Date End Date Norma Davies, BULB PLANTER.ROCKET TEST FIRE WORKER [address] [facility] [address] [place] [address] [id number] PCP - General Family Medicine 08/03/13 Christy Sierra MD [address] [place] [address] Primary Staff Physician Cardiology 12/14/18 [place] [address] [place] [address] Radiation Oncology 06/23/22 Rohini Cody LISW [address] [place] [address] Data Base Design Analyst Oncology 11/07/22 Smoking Pipe Driller And Threader Relationship Specialty Start Date End Date Norma Davies, BULB PLANTER.ROCKET TEST FIRE WORKER [address] [facility] [address] [place], [place] [phone] PCP - General Family Medicine 08/03/13 Christy Sierra MD [address] [place] [address] Primary Staff Physician Cardiology 12/14/18 [place] [address] [place] [address] Radiation Oncology 06/23/22 Rohini Cody LISW [address] [place] [address] Data Base Design Analyst Oncology 11/07/22 Smoking Pipe Driller And Threader Relationship Specialty Start Date End Date Norma Davies, BULB PLANTER.ROCKET TEST FIRE WORKER [address] [place], [place] [phone] PCP - General Family Medicine 08/03/13 Christy Sierra MD [facility] [place] [phone] Primary Staff Physician Cardiology 12/14/18 [place] [address] [place] [address] Radiation Oncology 06/23/22 Rohini Cody LISW 22977 [place] [address] Data Base Design Analyst Oncology 11/07/22 Smoking Pipe Driller And Threader Relationship Specialty Start Date End Date Norma Davies, BULB PLANTER.ROCKET TEST FIRE WORKER [address] [place] [address] PCP - General Family Medicine 08/03/13 Christy Sierra MD [address] [place], [place] [phone] Primary Staff Physician Cardiology 12/14/18 [place] [address] [place] [address] Radiation Oncology 06/23/22 Rohini Cody LISW [address]37 [place] [address] Data Base Design Analyst Oncology 11/07/22 Smoking Pipe Driller And Threader Relationship Specialty Start Date End Date Norma Davies, BULB PLANTER.ROCKET TEST FIRE WORKER [address] [facility] [address] [place], [place] [phone] PCP - General Family Medicine 08/03/13 Christy Sierra MD [address] [place] [address] [phone] Primary Staff Physician Cardiology 12/14/18 [place] [address] [place] [address] Radiation Oncology 06/23/22 Rohini Cody LISW 39374 [place] [address] Data Base Design Analyst Oncology 11/07/22 Smoking Pipe Driller And Threader Relationship Specialty Start Date End Date Norma Davies, BULB PLANTER.ROCKET TEST FIRE WORKER [address] [facility] [address] [place] [address] PCP - General Family Medicine 08/03/13 Christy Sierra MD [address] [place] [address] Primary Staff Physician Cardiology 12/14/18 [place] [address] [place] [address] Radiation Oncology 06/23/22 Rohini Cody LISW 97482 [place] [address] Data Base Design Analyst Oncology 11/07/22 Smoking Pipe Driller And Threader Relationship Specialty Start Date End Date Norma Davies, BULB PLANTER.ROCKET TEST FIRE WORKER [address] [place], [place] [phone] PCP - General Family Medicine 08/03/13 Christy Sierra MD [address] [place], [place] [phone] Primary Staff Physician Cardiology 12/14/18 [place] [address] [place] [address] Radiation Oncology 06/23/22 Rohini Cody LISW [address]102 [place] [address] Data Base Design Analyst Oncology 11/07/22 Smoking Pipe Driller And Threader Relationship Specialty Start Date End Date Norma Davies, BULB PLANTER.ROCKET TEST FIRE WORKER [address] [place] [address] PCP - General Family Medicine 08/03/13 Christy Sierra MD [address] [place], [place] [phone] Primary Staff Physician Cardiology 12/14/18 [place] [address] [place] [address] Radiation Oncology 06/23/22 Rohini Cody LISW 62308 [place] [address] Data Base Design Analyst Oncology 11/07/22 Smoking Pipe Driller And Threader Relationship Specialty Start Date End Date Norma Davies, BULB PLANTER.ROCKET TEST FIRE WORKER [address] [place], [place] [phone] PCP - General Family Medicine 08/03/13 Christy Sierra MD [address] [place] [address] Primary Staff Physician Cardiology 12/14/18 [place] [address] [place] [address] Radiation Oncology 06/23/22 Rohini Cody LISW 26370 [place] [address] Data Base Design Analyst Oncology 11/07/22 Smoking Pipe Driller And Threader Relationship Specialty Start Date End Date Norma Davies, BULB PLANTER.ROCKET TEST FIRE WORKER [address] [place], [place] [phone] PCP - General Family Medicine 08/03/13 Christy Sierra MD [address] [place] [address] Primary Staff Physician Cardiology 12/14/18 [place] [address] [place] [address] Radiation Oncology 06/23/22 Rohini Cody LISW 88355 [place] [address] Data Base Design Analyst Oncology 11/07/22 Smoking Pipe Driller And Threader Relationship Specialty Start Date End Date Norma Davies, BULB PLANTER.ROCKET TEST FIRE WORKER [address] [place], [place] [phone] PCP - General Family Medicine 08/03/13 Christy Sierra MD [address] [place], [place] [phone] Primary Staff Physician Cardiology 12/14/18 [place] [address] [place] [address] Radiation Oncology 06/23/22 Glo CL[place]ITA [place] [address] [place] [address] Data Base Design Analyst Oncology 11/07/22 Smoking Pipe Driller And Threader Relationship Specialty Start Date End Date Norma Davies, BULB PLANTER.ROCKET TEST FIRE WORKER [address] [place] [address] [phone] PCP - General Family Medicine 08/03/13 [place] [address] [place] [address] Primary Staff Physician Cardiology 12/14/18 [place] [address] [place] [address] Radiation Oncology 06/23/22 Syedmerissa Rohini CLARITA [address] [place] [address] Data Base Design Analyst Oncology 11/07/22 Smoking Pipe Driller And Threader Relationship Specialty Start Date End Date Norma Davies, BULB PLANTER.ROCKET TEST FIRE WORKER [address] [place] [address] PCP - General Family Medicine 08/03/13 Christy Sierra MD [address] [place] [address] Primary Staff Physician Cardiology 12/14/18 [place] [address] [place] [address] Radiation Oncology 06/23/22 Rohini Cody LISW 26399 [place] [address] Data Base Design Analyst Oncology 11/07/22 Smoking Pipe Driller And Threader Relationship Specialty Start Date End Date Norma Davies, BULB PLANTER.ROCKET TEST FIRE WORKER [address] [id number] PCP - General Family Medicine 08/03/13 Christy Sierra MD [address] [place] [address] [phone] Primary Staff Physician Cardiology 12/14/18 [place] [address] [place] [id number] Radiation Oncology 06/23/22 Rohini Cody LISW [address] [place] [address] Data Base Design Analyst Oncology 11/07/22 Smoking Pipe Driller And Threader Relationship Specialty Start Date End Date Norma Davies, BULB PLANTER.ROCKET TEST FIRE WORKER [address] [address] PCP - General Family Medicine 08/03/13 Christy Sierra MD [address] [place] [address] Primary Staff Physician Cardiology 12/14/18 [place] [address] [place] [address] Radiation Oncology 06/23/22 Rohini Cody LISW 07134 [place] [address] Data Base Design Analyst Oncology 11/07/22 Smoking Pipe Driller And Threader Relationship Specialty Start Date End Date Norma Davies, BULB PLANTER.ROCKET TEST FIRE WORKER [address] [place], [place] [phone] PCP - General Family Medicine 08/03/13 Christy Sierra MD [address] [place] [address] Primary Staff Physician Cardiology 12/14/18 [place] [address] [place] [address] Radiation Oncology 06/23/22 Rohini Cody LISW 31234 [place] [address] Data Base Design Analyst Oncology 11/07/22 Smoking Pipe Driller And Threader Relationship Specialty Start Date End Date Norma Davies, BULB PLANTER.ROCKET TEST FIRE WORKER [address] [place] [address] PCP - General Family Medicine 08/03/13 Christy Sierra MD [address] [place] [address] Primary Staff Physician Cardiology 12/14/18 [place] [address] [place] [address] Radiation Oncology 06/23/22 Smoking Pipe Driller And Threader Relationship Specialty Start Date End Date Norma Davies, BULB PLANTER.ROCKET TEST FIRE WORKER [address] [place], [place] [id number] PCP - General Family Medicine 08/03/13 Christy Sierra MD [address] [place] [address] Primary Staff Physician Cardiology 12/14/18 [place] [address] [place] [address] Radiation Oncology 06/23/22 Rohini Cody LISW [address]55[address] [place] [address] Data Base Design Analyst Oncology 11/07/22 Smoking Pipe Driller And Threader Relationship Specialty Start Date End Date Norma Davies, BULB PLANTER.ROCKET TEST FIRE WORKER [address] [place] [address] PCP - General Family Medicine 08/03/13 Christy Sierra MD [address] [place] [address] Primary Staff Physician Cardiology 12/14/18 [place] [address] [place] [address] Radiation Oncology 06/23/22 Rohini Cody LISW 37405 [place] [address] Data Base Design Analyst Oncology 11/07/22 Smoking Pipe Driller And Threader Relationship Specialty Start Date End Date Norma Davies, BULB PLANTER.ROCKET TEST FIRE WORKER [address] [place], [place] [id number] PCP - General Family Medicine 08/03/13 Christy Sierra MD [address] [place] [address] Primary Staff Physician Cardiology 12/14/18 [place] [address] [place] [address] Radiation Oncology 06/23/22 Terri Codynifer CLARITA [address] [place] [address] Data Base Design Analyst Oncology 11/07/22 Smoking Pipe Driller And Threader Relationship Specialty Start Date End Date Norma Davies, BULB PLANTER.ROCKET TEST FIRE WORKER [address] [facility] [address] [place] [address] [phone] PCP - General Family Medicine 08/03/13 Christy Sierra MD [address] [place] [address] [phone] Primary Staff Physician Cardiology 12/14/18 [place] [address] [place] [address] Radiation Oncology 06/23/22 Rohini Cody LISW 87372 [place] [address] Data Base Design Analyst Oncology 11/07/22 Smoking Pipe Driller And Threader Relationship Specialty Start Date End Date Norma Davies, BULB PLANTER.ROCKET TEST FIRE WORKER [address] [facility] [address] [place] [address] PCP - General Family Medicine 08/03/13 Christy Sierra MD [address] [place] [address] [id number] Primary Staff Physician Cardiology 12/14/18 [place] [address] [place] [address] Radiation Oncology 06/23/22 Rohini Cody LISW 94226 [place] [address] Data Base Design Analyst Oncology 11/07/22 Smoking Pipe Driller And Threader Relationship Specialty Start Date End Date Norma Davies, BULB PLANTER.ROCKET TEST FIRE WORKER [address] [facility] [address] [place] [id number] PCP - General Family Medicine 08/03/13 Christy Sierra MD [address] [place] [address] Primary Staff Physician Cardiology 12/14/18 [place] [address] [place] [address] Radiation Oncology 06/23/22 Rohini Cody LISW [address] [place] [address] Data Base Design Analyst Oncology 11/07/22 Smoking Pipe Driller And Threader Relationship Specialty Start Date End Date Norma Davies, BULB PLANTER.ROCKET TEST FIRE WORKER [address] [address] PCP - General Family Medicine 08/03/13 Christy Sierra MD [address] [place] [address] Primary Staff Physician Cardiology 12/14/18 [place] [address] [place] [address] Radiation Oncology 06/23/22 Rohini Cody LISW [address] [place] [address] Data Base Design Analyst Oncology 11/07/22 Smoking Pipe Driller And Threader Relationship Specialty Start Date End Date Norma Davies, BULB PLANTER.ROCKET TEST FIRE WORKER [address] [place], [place] [phone] PCP - General Family Medicine 08/03/13 Christy Sierra MD [address] [place], [place] [id number] Primary Staff Physician Cardiology 12/14/18 [place] [address] [place] [address] Radiation Oncology 06/23/22 Rohini Cody LISW [address] [place] [address] Data Base Design Analyst Oncology 11/07/22 Smoking Pipe Driller And Threader Relationship Specialty Start Date End Date Norma Davies, BULB PLANTER.ROCKET TEST FIRE WORKER [address] [place] [address] PCP - General Family Medicine 08/03/13 Christy Sierra MD [address] [place], [place] [id number] Primary Staff Physician Cardiology 12/14/18 [place] [address] [place] [address] Radiation Oncology 06/23/22 Rohini Cody LISW [address] [place] [address] Data Base Design Analyst Oncology 11/07/22 Smoking Pipe Driller And Threader Relationship Specialty Start Date End Date Norma Davies, BULB PLANTER.ROCKET TEST FIRE WORKER [address] [place], [place] [id number] PCP - General Family Medicine 08/03/13 Christy Sierra MD [address] [place] [address] Primary Staff Physician Cardiology 12/14/18 [place] [address] [place] [address] Radiation Oncology 06/23/22 Rohini Cody LISW [address] [place] [address] Data Base Design Analyst Oncology 11/07/22 Smoking Pipe Driller And Threader Relationship Specialty Start Date End Date Norma Davies, BULB PLANTER.ROCKET TEST FIRE WORKER [address] [place] [id number] PCP - General Family Medicine 08/03/13 Christy Sierra MD [address] [place] [address] Primary Staff Physician Cardiology 12/14/18 [place] [address] [place] [address] Radiation Oncology 06/23/22 Rohini Cody LISW [address] [place] [address] Data Base Design Analyst Oncology 11/07/22 Smoking Pipe Driller And Threader Relationship Specialty Start Date End Date Norma Davies, BULB PLANTER.ROCKET TEST FIRE WORKER [address] [place], [place] [phone] PCP - General Family Medicine 08/03/13 Christy Sierra MD [address] [place], [place] [phone] Primary Staff Physician Cardiology 12/14/18 [place] [address] [place] [address] Radiation Oncology 06/23/22 Syedmerissa CLARITA [place] [address] [place] [address] Data Base Design Analyst Oncology 11/07/22 Smoking Pipe Driller And Threader Relationship Specialty Start Date End Date Norma Davies, BULB PLANTER.ROCKET TEST FIRE WORKER [address] [place], [place] [phone] PCP - General Family Medicine 08/03/13 Christy Sierra MD [address] [place] [id number] Primary Staff Physician Cardiology 12/14/18 [place] [address] [place] [address] Radiation Oncology 06/23/22 Syedmerissa Rohini CLARITA [address] [place] [address] Data Base Design Analyst Oncology 11/07/22 Smoking Pipe Driller And Threader Relationship Specialty Start Date End Date Norma Davies, BULB PLANTER.ROCKET TEST FIRE WORKER [address] [place] [address] PCP - General Family Medicine 08/03/13 Christy Sierra MD [address] [place] [address] Primary Staff Physician Cardiology 12/14/18 [place] [address] [place] [address] Radiation Oncology 06/23/22 Rohini Cody LISW [address] [place] [address] Data Base Design Analyst Oncology 11/07/22 Smoking Pipe Driller And Threader Relationship Specialty Start Date End Date Norma Davies, BULB PLANTER.ROCKET TEST FIRE WORKER [address] [facility] [address] [place] [address] PCP - General Family Medicine 08/03/13 [place] [address] [place] [address] Primary Staff Physician Cardiology 12/14/18 [place] [address] [place] [address] Radiation Oncology 06/23/22 Rohini Cody LISW [address] [place] [address] Data Base Design Analyst Oncology 11/07/22 Smoking Pipe Driller And Threader Relationship Specialty Start Date End Date Norma Davies, BULB PLANTER.ROCKET TEST FIRE WORKER [address] [facility] [address] [place] [address] PCP - General Family Medicine 08/03/13 Christy Sierra MD [address] [place] [address] Primary Staff Physician Cardiology 12/14/18 [place] [address] [place] [address] Radiation Oncology 06/23/22 Rohini Cody LISW [address] [place] [address] Data Base Design Analyst Oncology 11/07/22 Smoking Pipe Driller And Threader Relationship Specialty Start Date End Date Norma Davies, BULB PLANTER.ROCKET TEST FIRE WORKER [address] [place], [place] [phone] PCP - General Family Medicine 08/03/13 Christy Sierra MD [address] [place] [address] Primary Staff Physician Cardiology 12/14/18 [place] [address] [place] [address] Radiation Oncology 06/23/22 Rohini Cody LISW [address] [place] [address] Data Base Design Analyst Oncology 11/07/22 Smoking Pipe Driller And Threader Relationship Specialty Start Date End Date Norma Davies, BULB PLANTER.ROCKET TEST FIRE WORKER [address] [place] [address] PCP - General Family Medicine 08/03/13 Christy Sierra MD [address] [place], [place] [id number] Primary Staff Physician Cardiology 12/14/18 [place] [address] [place] [address] Radiation Oncology 06/23/22 Rohini Cody LISW [address] [place] [address] Data Base Design Analyst Oncology 11/07/22 Smoking Pipe Driller And Threader Relationship Specialty Start Date End Date Norma Davies, BULB PLANTER.ROCKET TEST FIRE WORKER [address] [place], [place] [phone] PCP - General Family Medicine 08/03/13 Christy Sierra MD [address] [place], [place] [phone] Primary Staff Physician Cardiology 12/14/18 [place] [address] [place] [address] Radiation Oncology 06/23/22 Rohini Cody LISW [address] [place] [address] Data Base Design Analyst Oncology 11/07/22 Team Status: Inactive Member Role Status Dates Norma Davies FBI PROFILER, FBI PROFILER-C Primary Care Provider Active Start: March 09, 2025 End: March 09, 2025 Norma Davies FBI PROFILER, FBI PROFILER-C Attending Provider Active Start: March 09, 2025 End: March 09, 2025 Norma Davies FBI PROFILER, FBI PROFILER-C Referring Provider Active Start: March 09, 2025 End: March 09, 2025 Smoking Pipe Driller And Threader Relationship Specialty Start Date End Date Norma Davies, BULB PLANTER.ROCKET TEST FIRE WORKER [address] [address] PCP - General Family Medicine 08/03/13 Christy Sierra MD [facility] [place] [phone] Primary Staff Physician Cardiology 12/14/18 [place] [address] [place] [address] Radiation Oncology 06/23/22 Rohini Cody LISW [address] [place] [id number] Data Base Design Analyst Oncology 11/07/22 Goals (unrecognized section and content) Goals may be documented in a n alternate sectionGoals may be documented in an alternate sectionGoals may be documented in an alternate section (unrecognized sect ion and content) No Status Records FoundNo Status Records FoundNo Status Records FoundNo Status Records FoundNo Status Records Found INFORMATION SOURCE (unrecogn ized section and content) DATE CREATED AUTHOR 08/08/2022 [facility] DATE CREATED AUTHOR AUTHOR'S ORGANIZ ATION 02/21/2024 [facility] DATE CREATED AUTHOR AUTHOR'S ORGANIZ ATION 03/18/2025 [facility] DATE CREATED AUTHOR AUTHOR'S ORGANIZ ATION 04/22/2025 [facility] DATE CREATED AUTHOR AUTHOR'S ORGANIZ ATION 05/05/2025 [facility] FOR RECORDS PERTAINING TO PATIENTS WHO ARE [...] BE BASED ON THE PRIMARY CLINICAL RECORDS. [facility] [employer] provides no warranty or guarantee of the accuracy or completeness of information in this document.
--- OUTSIDE RECORDS SUMMARY | 2025-05-08 22:34 | XMS RPT_ITS | CCD ---
Author Organization [facility] CliniSyin Care Team Providers Care Resp Ther Name Role Phone Samson ROGUER.Norma LEWIS Primary Care Provide r Damian Nunn MD, Christy Unavailable [phone] Samson ROGUER.Norma LEWIS Primary Care Provide r Damian Nunn MD, Christy Unavailable [phone] Hussein Ordonez MD Unavailable Samson ROGUER.DEBBIE Norma L Primary Care Provide r DAVIES, NORMA L Primary Care Unavailable VAZQUEZ PAGE Referring Unavailable HUSSEIN ORDONEZ Referring Unavailable DAVIES, NORMA L Primary Care Unavailable DAVIES, NORMA L Primary Care Unavailable HUSSEIN ORDONEZ Referring Unavailable DAVIES, NORMA L Primary Care Unavailable DAVIES, NORMA L Referring Unavailable VAZQUEZ PAGE Attending Unavailable DAVIES, NORMA L Primary Care Unavailable DAVIES, NORMA L Referring Unavailable Davies ROGUER.Corey LEWISa L Primary Care Provide r Damian Nunn MD, Christy Unavailable Hussein Ordonez MD Unavailable Samson ROGUER.DEBBIE Norma L Primary Care Provide r Rohini Aponte Unavailable Damian Nunn MD, Christy Unavailable Samson ROGUER.DEBBIE Norma L Primary Care Provide r SAMSON, NORMA L Primary Care Unavailable SELWYN MICHELLE Attending Unavailable HUSSEIN ORDONEZ Referring Unavailable DAVIES, NORMA L Primary Care Unavailable SELWYN MICHELLE Attending Unavailable Davies TITLE SUPERVISOR-C, Norma Primary Care Provider Davies TITLE SUPERVISOR-C, Norma Attending Provider Davies TITLE SUPERVISOR-C, Norma Referring Provider Davies TITLE SUPERVISOR, Norma Referring Unavailable Davies TITLE SUPERVISOR, Norma Attending Unavailable Davies TITLE SUPERVISOR, Norma Primary Care Unavailable DAVIES, NORMA L [...] Unavailable DAVIES, NORMA L Primary Care Unavailable VASSIL HUSSEIN Referring [...] Drug Allergy 01-12-2023 Rash, Shortness of Breath [facility] Work Phone: Medications Current Medications Medication Drug Class(es) Dates Sig (Normalized) Sig (Original) acetaminophen 325 mg oral tablet (20 sources) acetaminophen (TYLENOL) 325 mg tablet Take 650 mg by mouth as needed. Active Comment on above: Take 650 mg by mouth as needed. [id number] actuat albuterol 0.09 mg/actuat metered dose [...] before dental procedure. Take 1 capsule by [facility] every 8 hours for 10 days. BIPAP [...] supply patient with Full face mask, Santana Zellwood VIP 7600. 1 0 07/01/2007 Active Comment on above: Please supply patien t with Full face mask, Santana Zellwood VIP 7600. ASV Adaptive Servo-V entilation (ASV) [...] 11, 2021 7:47pm take 1 capsule by [facility] once daily celecoxib (CELEBREX) 200 mg capsule [...] Comment on above: Take 1 capsule by [facility] four times daily for 10 days. doxycycline [...] aftercare (2 sources) Patient encounter status; Translations: [intermediate (current) use of non-steroidal anti-inflammatories (NSAID)] 12-14-2023 [...] Test Name Value Interpretation Reference Range Facility [id number] 05-03-2025 [id number] O ID: [id number] Author: ASIF WHARTON PT Service: ? Author Type: Physical Therapist Type: [id number] Filed: 05/03/2025 13:45 Note Text: [facility] Physical Therapy Plan [...] increase T-score by a minimum 5 points. Cooper in home exercise program. Patient will decrease [...] Planned: 12 Planned Treatment Interventions: Therapeutic exercise (67190), Neuromuscular re-education (15299), Therapeutic activities (96045), Manual therapy (20338), Self-chcf management (18309), Patient/Family/Caregiver Education, General Conditioning PLAN FOR NEXT [...] Signature certifies the need for therapy services. [facility] CNTHERAPYon 05-03-2025 CNTHERAPY OT/PT/Speech Visit (PTMCRM) -- SYLIVE CHIU ([id number]) 1950 [place] Date Time Provider Department 05/03/25 10:00 AM ASIF WHARTON [facility] Date Time Provider Department Center 05/03/2025 10:00 AM [id number], COLIN [facility] Reason for Visit: PT Eval [257] Patient Education [91] Primary Visit Diagnosis:Lumbago-sciatica due [...] Full face mask, Santana Nassarolph VIP 7600. Office Spec: Therapy (PT/OT/Speech/Resp) ID: [id number] 05/03/2025 10:49 AM Author: ASIF WHARTON Signed by ASIF WHARTON PT on 05/03/2025 at 10:49 AM Document text: Program_ID:[id number] Access Code: [email or web address] URL: [email or web address] Date: 05-03-2025 Prepared By: Asif Wharton Program [...] weekly - 2-3 sets - 10 reps [facility] THERAPY NTon 05-03-2025 THERAPY NT HNO ID: [id number] Author: ASIF WHARTON, PT Service: ? Author Type: Physical Therapist Type: Therapy (PT/OT/Speech/Resp) Filed: 05/03/2025 10:49 Note Text: Program_ID:[id number] Access Code: [email or web address] URL: [email or web address] Date: 05-03-2025 Prepared By: Asif Wharton Program [...] weekly - 2-3 sets - 10 reps [facility] CNOVon 04-21-2025 CNOV Office Visit (ORMDNA ) -- SYLVIE CHIU ([id number]) 1950 M [place] Date Time Provider Department 04/21/25 10:00 AM MAYRA BUENROSTRO During your visit today, we recorded the following information about you: Mayra Buenrostro PA-C 04/21/2025 12:55 PM Signed CONSULT ORTHOPAEDIC: HIP PRIMARY CARE PHYSICIAN: Norma Davies APRN.AUTOMOTIVE ACCESSORY INSTALLER REFERRING PROVIDER: No referring provider defined for [...] Without Esophagit (more content not included)... Normal [facility] XR HIP 3V PELV+ AP/LAT LTon 04-21-2025 [...] PELV+ AP/LAT LT, XR LEG FRONTL HIP-[facility] AXIS COMPARISON: 07/20/2023 FINDINGS: Moderate bilateral hip osteoarthrosis, not significantly changed. Femoral heads are smooth. Stable suspected bone island in the right femoral head. Sacroiliac joints and symphysis pubis are maintained. Degenerative change in the lower lumbar spine. There is mild varus angulation at the left knee. Right total hip arthroplasty is noted. IMPRESSION: Osteoarthrosis. No acute abnormality. Compliance Advisor: PSCB Transcribe Date/Time: Apr 23 2025 4:14P Dictated by : ISAEL MAGAÑA MD This examination was interpreted and the report reviewed and electronically signed by: ISAEL MAGAÑA MD on Apr 23 2025 4:16PM EST [id number] [facility] 04-21-2025 XR LEG FRONTL HIP-[facility] AXIS * * *Final Report* * * DATE OF EXAM: Apr 21 2025 9:30AM MANUEL [id number] - XR LEG FRONTL HIP-[facility] AXIS / PROCEDURE REASON: M25.552-Left hip pain * * * * Physician Interpretation * * * * PROCEDURE: Pelvis and left hip, mechanical axis INDICATION: Left hip pain .chronic posterior left hip pain TECHNIQUE: XR HIP 3V PELV+ AP/LAT LT, XR LEG FRONTL [facility]IP[facility] AXIS COMPARISON: 07/20/2023 FINDINGS: Moderate bilateral hip osteoarthrosis, not significantly changed. Femoral heads are smooth. Stable suspected bone island in the right femoral head. Sacroiliac joints and symphysis pubis are maintained. Degenerative change in the lower lumbar spine. There is mild varus angulation at the left knee. Right total hip arthroplasty is noted. IMPRESSION: Osteoarthrosis. No acute abnormality. Compliance Advisor: [facility] Transcribe Date/Time: Apr 23 2025 4:14P Dictated by : ISAEL MAGAÑA MD This examination was interpreted and the report reviewed and electronically signed by: ISAEL MAGAÑA MD on Apr 23 2025 4:16PM EST [id number] Normal [facility] Comprehensive Metabolic Prof ilon 03-10-2025 AST [Catalytic activity/Vol] 34 U/L Normal <=37 [facility] Comment on above: Performed By: #### L 500.4050, L100.0100, L500.4100 #### [facility] [address] [place], [place] [address]all [facility] [place], [address] Absolute lymphocyte countOrd ered By: Norma Davies on 03-09-2025 Lymphocytes Auto (Unsp spec) [#/Vol] 1.32 10*3/uL 0.83-4.51 [facility] Absolute neutrophil countOrd ered By: Norma Davies on 03-09-2025 Neutrophils (Bld) [#/Vol] 4.9 10*3/uL 2.0-7.7 [facility] Anion gap in Serum or Plasma Ordered By: Norma Davies on 03-09-2025 Anion gap [Moles/Vol] 11 mmol/L 5-15 [facility] Automated lymphocyte count a s percentage of total leukocytesOrdered By: Norma Samson on 03-09-2025 Lymphocytes/100 WBC Auto (Unsp spec) 19.4 % 19-41 [facility] BUN/creatinine ratioOrdered By: Norma Davies on 03-09-2025 Urea nitrogen/Creatinine [Mass ratio] 24.4 mg/mg High 10-20 [facility] Basophil percentageOrdered B y: Norma Samson on 03-09-2025 Basophils/100 WBC (Bld) 0.9 % 0-1 [facility] Bilirubin, totalOrdered By: Norma Davies on 03-09-2025 Bilirubin [Mass/Vol] 0.59 mg/dL 0.00-1.30 [facility] CBC W/Diff, Automatedon 02-26 Absolute Lymph 1.32 X10 3/uL Normal 0.83-4.51 [facility] Comment on above: Performed By: #### L 500.4050, L100.0100, L500.4100 #### [facility] [address] [place], [address] Absolute Neut 4.9 X10 3/uL Normal 2.0-7.7 [facility] Comment on above: Performed By: #### L 500.4050, L100.0100, L500.4100 #### [facility] [address] [place], [address] Basophils/100 WBC (Bld) 0.9 % Normal 0-1 [facility] Comment on above: Performed By: #### L 500.4050, L100.0100, L500.4100 #### [facility] [address] [place], [address] Eosinophils/100 WBC (Bld) 1.8 % Normal 0-5 [facility] Comment on above: Performed By: #### L 500.4050, L100.0100, L500.4100 #### [facility] [address] [place], [address] Erythrocyte distribution width (RBC) [Ratio] 14.2 % Normal 11.6-14.6 [facility] Comment on above: Performed By: #### L 500.4050, L100.0100, L500.4100 #### [facility] [address] [place], [address] Hematocrit (Bld) [Volume fraction] 42.3 % Normal 40-54 [facility] Comment on above: Performed By: #### L 500.4050, L100.0100, L500.4100 #### [facility] [address] [place], [address] Hemoglobin (Bld) [Mass/Vol] 13.7 g/dL Normal 13.0-16.5 [facility] Comment on above: Performed By: #### L 500.4050, L100.0100, L500.4100 #### [facility] [address] [place], [address] IG% 0.600 Normal 0.0-0.9 [facility] Comment on above: Result Comment: IG% - Immature Granulocytes (promyelocytes, myelocytes and metamyelocytes) > 1% indicates that a LEFT SHIFT is Present. Performed By: #### L 500.4050, L100.0100, L500.4100 #### [facility] [address] [place], [address] Lymphocytes/100 WBC (Bld) 19.4 % Normal 19-41 [facility] Comment on above: Performed By: #### L 500.4050, L100.0100, L500.4100 #### [facility] [address] [place], [address] MCH (RBC) [Entitic mass] 30.6 pg Normal 27.0-32.0 [facility] Comment on above: Performed By: #### L 500.4050, L100.0100, L500.4100 #### [facility] [address] [place], [address] MCHC (RBC) [Mass/Vol] 32.4 g/dL Normal 32-36 [facility] Comment on above: Performed By: #### L 500.4050, L100.0100, L500.4100 #### [facility] [address] [place], [address] MCV (RBC) [Entitic vol] 94.4 fL High 80-94 [facility] Comment on above: Performed By: #### L 500.4050, L100.0100, L500.4100 #### [facility] [address] [place], [address] Monocytes/100 WBC (Bld) 5.3 % Normal 0-10 [facility] Comment on above: Performed By: #### L 500.4050, L100.0100, L500.4100 #### [facility] [address] [place], [address] Neutrophils/100 WBC (Bld) 72.0 % High 47-70 [facility] Comment on above: Performed By: #### L 500.4050, L100.0100, L500.4100 #### [facility] [address] [place], [address] Nucleated RBC (Bld) [#/Vol] 0 10*3/uL Normal 0-5 [facility] Comment on above: Performed By: #### L 500.4050, L100.0100, L500.4100 #### [facility] [address] [place], [address] Platelet mean volume (Bld) [Entitic vol] 11.2 fL Normal 6.2-12.0 [facility] Comment on above: Performed By: #### L 500.4050, L100.0100, L500.4100 #### [facility] [address] [place], [address] Platelets (Bld) [#/Vol] 164 10*3/uL Normal 150-450 [facility] Comment on above: Performed By: #### L 500.4050, L100.0100, L500.4100 #### [facility] [address] [place], [address] RBC (Bld) [#/Vol] 4.48 10*6/uL Low 4.6-6.2 [facility] Comment on above: Performed By: #### L 500.4050, L100.0100, L500.4100 #### [facility] [address] [place], [address] RDW SD 49.2 fl High 35.1-43.9 [facility] Comment on above: Performed By: #### L 500.4050, L100.0100, L500.4100 #### [facility] [address] [place], [address] WBC (Bld) [#/Vol] 6.8 10*3/uL Normal 4.4-11.0 [facility] Comment on above: Performed By: #### L 500.4050, L100.0100, L500.4100 #### [facility] [address] [place], [address] Calculated very low density lipoprotein (VLDL) cholesterol measurementOrdered By: Norma Davies on 03-09-2025 Calculated very low density lipoprotein (VLDL) cholesterol measurement 17 mg/dL 5-40 [facility] Carbon dioxide, total [Moles /volume] in Central venous bloodOrdered By: Norma Davies on 03-09-2025 CO2 [Moles/Vol] 23.1 mmol/L 21.0-32.0 [facility] Chloride assayOrdered By: Do ra Davies on 03-09-2025 Chloride [Moles/Vol] 108 mmol/L 98-108 [facility] Eosinophil percentageOrdered By: Norma Davies on 03-09-2025 Eosinophils/100 WBC (Bld) 1.8 % 0-5 [facility] Erythrocyte distribution wid th ratioOrdered By: Norma Davies on 03-09-2025 Erythrocyte distribution width (RBC) [Ratio] 14.2 % 11.6-14.6 [facility] Erythrocyte distribution wid th standard deviationOrdered By: Norma Davies on 03-09-2025 Erythrocyte distribution width (RBC) [Ratio] 49.2 fl High 35.1-43.9 [facility] Glomerular filtration rate ( GFR) estimation/1.73 sq m using serum, plasma, or whole bOrdered By: Norma Davies on 03-09-2025 GFR/1.73 sq M.predicted among non-blacks MDRD (S/P/Bld) [Vol rate/Area] 83 mL/min/{1.73_m2} >60 [facility] Comment on above: mL/min/1.73m2 CKD-EP I Creatinine Equation (2020) Hematocrit Auto (Bld) [Volum e fraction]Ordered By: Norma Davies on 03-09-2025 Hematocrit (Bld) [Volume fraction] 42.3 % 40-54 [facility] Hemoglobin measurementOrdere d By: Norma Davies on 03-09-2025 Hemoglobin (Bld) [Mass/Vol] 13.7 g/dL 13.0-16.5 [facility] Immature granulocytes/100 WB C Auto (Bld)Ordered By: Norma Davies on 03-09-2025 Immature granulocytes/100 WBC (Bld) 0.600 % 0.0-0.9 [facility] Comment on above: IG% - Immature Granu locytes (promyelocytes, myelocytes and metamyelocytes) > 1% indicates that a LEFT SHIFT is Present. LDL calc ser/plasOrdered By: Norma Davies on 03-09-2025 Cholesterol in LDL [Mass/Vol] 97 mg/dL [facility] Comment on above: Fknxzmhcvu=835-192 m g/dL & Higher Qsnc=726 mg/dL or greater Laboratory - Chemistry and C hemistry - challengeOrdered By: Norma Davies on 03-09-2025 AST [Catalytic activity/Vol] 34 U/L <38 [facility] Lipid Profileon 03-09-2025 CHOL:HDL 3.37 Normal [facility] Comment on above: Performed By: #### L 500.4050, L100.0100, L500.4100 #### [facility] [address] [place], [address] Cholesterol [Mass/Vol] 162 mg/dL Normal <=200 [facility] Comment on above: Result Comment: Chol esterol level, Desirable <200 mg/dL Borderline high cholesterol 200-239 mg/dL High cholesterol >=240 mg/dL Recommendations of the NCEP Adult Treatment Panel for the following risk-cutoff thresholds for the [place] population. Performed By: #### L 500.4050, L100.0100, L500.4100 #### [facility] [address] [place], [address] Cholesterol in HDL [Mass/Vol] 48 mg/dL Normal [facility] Comment on above: Result Comment: Adali onal Cholesterol Education Program (NCEP) guidelines: <40 mg/dL: Low HDL-cholesterol (major risk factor for CHD) >= 60 mg/dL: High HDL-cholesterol (negative risk factor for CHD) HDL-cholesterol is affected by a number of factors, e.g. smoking, exercise, hormones, sex and age. Performed By: #### L 500.4050, L100.0100, L500.4100 #### [facility] [address] [place], [address] Cholesterol in LDL [Mass/Vol] 97 mg/dL Normal [facility] Comment on above: Result Comment: Bord lcllqo=217-139 mg/dL Higher Deuk=303 mg/dL or greater Performed By: #### L 500.4050, L100.0100, L500.4100 #### [facility] [address] [place], [address] Cholesterol in VLDL [Mass/Vol] 17 mg/dL Normal 5-40 [facility] Comment on above: Performed By: #### L 500.4050, L100.0100, L500.4100 #### [facility] [address] [facility] [place], [address] Triglyceride [Mass/Vol] 86 mg/dL Normal [facility] Comment on above: Result Comment: The drugs N-Acetylcysteine and Metamizole may falsely depress this assay. Normal range: <150 mg/dL Borderline High: 150-199 mg/dL High: 200-499 mg/dL Very High: >500 mg/dL Performed By: #### L 500.4050, L100.0100, L500.4100 #### [facility] [address] [facility] [place], [address] MCV (mean corpuscular volume ) determinationOrdered By: Norma Davies on 03-09-2025 MCV (RBC) [Entitic vol] 94.4 fL High 80-94 [facility] Mean corpuscular hemoglobin (MCH) determinationOrdered By: Norma Davies on 03-09-2025 MCH (RBC) [Entitic mass] 30.6 pg 27.0-32.0 [facility] Mean corpuscular hemoglobin concentration (MCHC) determinationOrdered By: Norma Davies on 03-09-2025 MCHC (RBC) [Mass/Vol] 32.4 g/dL 32-36 [facility] Mean platelet volume determi nationOrdered By: Norma Davies on 03-09-2025 Platelet mean volume (Bld) [Entitic vol] 11.2 fL 6.2-12.0 [facility] Monocyte percentageOrdered B y: Norma Davies on 03-09-2025 Monocytes/100 WBC (Bld) 5.3 % 0-10 [facility] Neutrophil percentageOrdered By: Norma Davies on 03-09-2025 Neutrophils/100 WBC (Bld) 72.0 % High 47-70 [facility] Nucleated red blood cell per centageOrdered By: Norma Davies on 03-09-2025 Nucleated RBC/100 WBC (Bld) [Ratio] 0 % 0-5 [facility] Platelet countOrdered By: Do ra Davies on 03-09-2025 Platelets (Bld) [#/Vol] 164 10*3/uL 150-450 [facility] Potassium measurement (mass/ volume)Ordered By: Norma Davies on 03-09-2025 Potassium (Unsp spec) [Mass/Vol] 4.3 mmol/L 3.3-5.1 [facility] RBC Auto (Bld) [#/Vol]Ordere d By: Norma Davies on 03-09-2025 RBC (Bld) [#/Vol] 4.48 10*6/uL Low 4.6-6.2 [facility] Screening total cholesterol/ high density lipoprotein (HDL) cholesterol ratioOrdered By: Norma Davies on 03-09-2025 Cholesterol.total/Chol esterol in HDL [Mass ratio] 3.37 {ratio} [facility] Serum creatinine measurement (mass/volume)Ordered By: Norma Davies on 03-09-2025 Creatinine [Mass/Vol] 0.97 mg/dL 0.70-1.20 [facility] Serum globulin measurementOr dered By: Norma Davies on 03-09-2025 Globulin (S) [Mass/Vol] 2.7 g/dL 2.2-4.2 [facility] Serum glucose measurement (m ass/volume)Ordered By: Norma Davies on 03-09-2025 Glucose [Mass/Vol] 90 mg/dL 70-99 [facility] Serum or plasma alanine crain otransferase (ALT) measurementOrdered By: Norma Davies on 03-09-2025 ALT [Catalytic activity/Vol] 56 U/L High <47 [facility] Serum or plasma albumin faustino urement (mass/volume)Ordered By: Norma Davies on 03-09-2025 Albumin [Mass/Vol] 4.6 g/dL 3.4-4.8 [facility] Serum or plasma albumin/glob ulin mass ratioOrdered By: Norma Davies on 03-09-2025 Albumin/Globulin [Mass ratio] 1.7 {ratio} 0.9-2.4 [facility] Serum or plasma alkaline jaylan sphatase measurementOrdered By: Noram Davies on 03-09-2025 ALP [Catalytic activity/Vol] 108 U/L 40-129 [facility] Serum or plasma calcium faustino urement (mass/volume)Ordered By: Norma Davies on 03-09-2025 Calcium [Mass/Vol] 9.6 mg/dL 7.6-11.0 [facility] Serum or plasma cholesterol in HDL measurement (mass/volume)Ordered By: Norma Davies on 03-09-2025 Cholesterol in HDL [Mass/Vol] 48 mg/dL >40 [facility] Comment on above: National Cholesterol Education Program (NCEP) guidelines:<40 mg/dL: Low HDL-cholesterol (major risk factor for CHD)>= 60 mg/dL: High HDL-cholesterol (negative risk factor for CHD)HDL-cholesterol is affected by a number of factors, e.g. smoking, exercise, hormones, sex and age. Serum or plasma cholesterol measurement (mass/volume)Ordered By: Norma Davies on 03-09-2025 Cholesterol [Mass/Vol] 162 mg/dL <201 [facility] Comment on above: Cholesterol level, D esirable <200 mg/dLBorderline high cholesterol 200-239 mg/dLHigh cholesterol >=240 mg/dLRecommendations of the NCEP Adult Treatment Panel for the following risk-cutoff thresholds for the [place] population. Serum or plasma urea nitroge n measurement (mass/volume)Ordered By: Norma Davies on 03-09-2025 Urea nitrogen [Mass/Vol] 24 mg/dL High 4-19 [facility] Sodium levelOrdered By: Norma Davies on 03-09-2025 Sodium [Moles/Vol] 143 mmol/L 133-145 [facility] Total proteinOrdered By: Corey Davies on 03-09-2025 Protein [Mass/Vol] 7.3 g/dL 5.9-8.4 [facility] Triglycerides measurementOrd ered By: Norma Davies on 03-09-2025 Triglyceride [Mass/Vol] 86 mg/dL <199 [facility] Comment on above: The drugs N-Acetylcy steine and Metamizole may falsely depress this assay. Normal range: <150 mg/dLBorderline High: 150-199 mg/dLHigh: 200-499 mg/dLVery High: >500 mg/dL White blood cell (WBC) count Ordered By: Norma Davies on 03-09-2025 WBC (Bld) [#/Vol] 6.8 10*3/uL 4.4-11.0 [facility] Office Visit (ORMDNA ) -- SYLVIE CHIU ([id number]) 1950 M [place] Date Time Provider Department [...] distress RESP:Unlabor (more content not included)... Normal [facility] Large Joint Arthro/Inj: L kn ee jointon [...] these instructions. Informed Consent Consent Obtained: Verbal [place]feld Protocol A moment to CARE was completed. [...] assessment and interventions applicable. No implant(s) inserted. [facility] XR KNEE 4V AP/PA BOTH+LAT/ME R LTon [...] narrowing, showing mild interval progression. There is dbhd-cu-nduv in the lateral patellofemoral joint compartment. Small joint bodies, new compared to previous. No fracture or joint effusion. IMPRESSION: Progressive, advanced osteoarthritis with small joint bodies Compliance Advisor: SAMANTHA Transcribe Date/Time: Mar 05 2025 11:18A Dictated by : ISAEL MAGAÑA MD This examination was interpreted and the report reviewed and electronically signed by: ISAEL MAGAÑA MD on Mar 05 2025 11:20AM EST [id number] [facility] Office Visit (ORTHBR ) -- SYLVIE CHIU ([id number]) 1950 M [facility] Date Time Provider Department 03/02/25 8:20 [...] these instructions. Informed Consent Consent Obtained: Verbal [place] Protocol A moment to CARE was completed. [...] injection, lupe (more content not included)... Normal [facility] Small Joint Arthro/Inj: L th umb CMCon [...] these instructions. Informed Consent Consent Obtained: Verbal Ilfeld Protocol A moment to CARE was completed. [...] been communicated to the patient or surrogate. 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 Author [...] to come back to the emergency department. [facility] ED PROV NOTEon 01-19-2025 ED PROV NOTE HNO ID: [id number] Author: MABEL ALVARENGA PA-C Service: Emergency Medicine Author Type: Physician Hospital Coordinator Type: ED Provider Notes Filed: 01/21/2025 00:41 [...] History provided by: Medical records and patient knife sharpener used: No PAST MEDICAL HISTORY Diagnosis Date [...] Behavior normal. Be (more content not included)... [facility] XR ANKLE 3V AP/LAT/OBL RTon 01-19-2025 [...] right ankle. Circumferential ankle soft tissue swelling. Compliance Advisor: PSCB Transcribe Date/Time: Jan 19 2025 7:47P Dictated by : TIAN HELTON MD This examination was interpreted and the report reviewed and electronically signed by: TIAN HELTON MD on Jan 19 2025 7:49PM EST [id number] [facility] XR FOOT 3V AP/LAT/OBL RTon 0 [...] right ankle. Circumferential ankle soft tissue swelling. Compliance Advisor: PSCB Transcribe Date/Time: Jan 19 2025 7:47P Dictated by : TIAN HELTON MD This examination was interpreted and the report reviewed and electronically signed by: TIAN HELTON MD on Jan 19 2025 7:49PM EST [id number] [facility] 12-23-2024 [facility] Office Visit (RADRST ) -- MILENASYLVIE CAMPBELL ([id number]) 1950 [facility] Date Time Provider Department 12/23/24 9:00 AM HUSSEIN ORDONEZ During your visit today, we recorded the following information about you: Weight 142 kg Hussein Ordonez MD 12/23/2024 4:11 PM Signed Radiation Oncology - Follow Up Note PATIENT NAME: Sylvie Chiu PATIENT DIAGNOSIS: 74 year old man with 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 Colonoscopy on 01/27/24 ([facility]) showed non-bleeding diverticula in the [...] Please supply patient with Full face mask, [employer] VIP 7600. REVIEW OF SYSTEMS: He notes [...] 42.46 kg (more content not included)... [facility] -- ARAMSYLVIE ([id number]) 1950 M [facility] Date Time Provider Department 12/19/24 HUSSEIN [...] supply patient with Full face mask, Santana [employer] VIP 7600. Problem List As Of Date [...] Status:Closed by ROHINI SAAB on 12/19/24 [facility] PSA SerPl-ncon 12-19-2024 Prostate specific Ag [Mass/Vol] 0.04 ng/mL Normal <2.60 [facility] Comment on above: Order Comment: Speci men Type: BLOOD SPECIMEN Ordering Facility: [facility] Address: [address] [place] [address] Result Comment: Tota l PSA test methodology used is the Electrochemiluminescence Immunoassay by [employer]. Total PSA values by differing methodologies cannot be interchanged. Performed By: #### 2 857-1 #### [facility] CLIA [id number] [address] [place], [place] [address] [address] [place] CNOVon 08-16-2024 CNOV Office Visit (ORTHBR ) -- SYLVIE CHIU ([id number]) 1950 M [facility] Date Time Provider Department 08/16/24 4:00 [...] results and radiologist's interpretation, available in the [facility] health record. Images were reviewed with [...] thumb CMC Informed Consent Consent Obtained: Verbal Ilfeld Protocol A moment to CARE was completed. [...] to ot (more content not included)... Normal [facility] Small Joint Arthro/Inj: R th umb CMCon 08-16-2024 Natan Alcazar DO 08/16/2024 4:25 PM Small Joint Arthro/Inj: R thumb CMC Informed Consent Consent Obtained: Verbal Ilfeld Protocol A moment to CARE was completed. [...] Plan of Care Visit completed when applicable [facility] US WRIST-INJECTION RT (POC) SALONI USE ONLYon 08-16-2024 [facility] CNOVon 08-02-2024 CNOV Office Visit (ORTHBR ) -- SYLVIE CHIU ([id number]) 1950 M [facility] Date Time Provider Department 08/02/24 9:30 [...] USG L CMC CSI, referral from Dr. eLe Wayne. Last Hgba1c: No results found for: [...] thumb CMC Informed Consent Consent Obtained: Verbal Ilfeld Protocol A moment to CARE was completed. [...] - Fully Assessed Reason for Visit: New [141567] Pain [78] Injections [199] New [502318] Pain [78] Primary Visit Diagnosis:Arthritis of carpometacarpal (CMC) joint of left thumb [M18.12] Other Visit Diagnosis:Right hand pain [M79.641] Order(s):US WRIST-INJECTION LT (POC) SALONI USE ONLY [[id number]] Order #: [id number]: 1 XR HAND GENERAL 3V PA/LAT/OBL RIGHT [[id number]] Order #: [id number] FUTURE Small Joint Arthro/Inj: L thumb CMC [FJZ914] Order #: [id number] [] ROPivacaine (PF) 5 mg/mL (0.5 %) 0.5 mL injection (NAROPIN)Disp: Rfl: [] triamcinolone acetonide 40 mg injection (KeNALog 40)Disp: Rfl: Prescriptions as of 08/02/2024 - gabapentin (NEURONTIN) 100 mg capsule Take 1 capsule by mouth three t (more content not included)... Normal [facility] Small Joint Arthro/Inj: L th umb CMCon 08-02-2024 AlcazarNatan youDO 08/02/2024 10:01 AM Small Joint Arthro/Inj: L thumb CMC Informed Consent Consent Obtained: Verbal Ilfeld Protocol A moment to CARE was completed. [...] Plan of Care Visit completed when applicable [facility] US WRIST-INJECTION LT (POC) SALONI USE ONLYon 08-02-2024 [facility] XR HAND 3V PA/LAT/OBL RTon 1 10-02-2023 [...] fracture. IMPRESSION: Bone demineralization and advanced osteoarthritis Compliance Advisor: SAMANTHA Transcribe Date/Time: Aug 06 2024 10:39A Dictated by : ISAEL MAGAÑA MD This examination was interpreted and the report reviewed and electronically signed by: ISAEL MAGAÑA MD on Aug 06 2024 10:41AM EST [id number] Normal [facility] 07-07-2024 CNPN Telephone (ORMDNA) -- ARAMSYLVIE ([id number]) 1950 [facility] Date Time Provider Department 07/07/24 LEE WAYNE [...] Fully Assessed Reason for Visit: Patient Question [6616] Prescriptions as of 07/07/2024 - gabapentin (NEURONTIN) [...] supply patient with Full face mask, Santana [employer] VIP 7600. Problem List As Of Date [...] Encounter Status:Closed by MAUREEN KIRBY on 07/07/24 [facility] 07-06-2024 [facility] -- SYLVIE CHIU ([id number]) 1950 [facility] Date Time Provider Department 07/06/24 SEDA HATCH [...] supply patient with Full face mask, Santana [employer] VIP 7600. 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 No current facility-administered medications for [...] [M18.12] Order(s):PROCEDURE REQUEST - SALONI ULTRASOUND-GUIDED INJECTION [[id number]] Order #: [id number]: 1 FUTURE gabapentin (NEURONTIN) 100 mg capsuleTake 1 capsule by mouth three times a day for 10 days.Disp: 30 capsuleRfl: 0 Prescriptions as of 07/25/2024 - gabapentin (NEURONTIN) 100 mg capsule Take 1 capsule by mouth three times a day for 10 days. - tamsulosin (FLOMAX) 0.4 mg TAKE 2 CAPSULES BY MOUTH (more content not included)... 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 Colonoscopy on 01/27/24 ([facility]) showed non-bleeding diverticula in the [...] supply patient with Full face mask, Santana [employer] VIP 7600. REVIEW OF SYSTEMS: He remains [...] ~5 cm (more content not included)... Normal [facility] PSA SerPl-ncon 06-06-2024 Prostate specific Ag [Mass/Vol] 0.03 ng/mL Normal <2.60 [facility] Comment on above: Order Comment: Speci men Type: BLOOD SPECIMEN Ordering Facility: [facility] Address: [address] [place] [address] Result Comment: Tota l PSA test methodology used is the Electrochemiluminescence Immunoassay by [employer]. Total PSA values by differing methodologies cannot be interchanged. Performed By: #### 2 857-1 #### [facility] CLIA [id number] [address] [place], [place] [address] [address] [place] CNOVon 05-24-2024 CNOV Office Visit (ORMDNA ) -- CUTLIP,SYLVIE R ([id number]) 1950 [facility] Date Time Provider Department 05/24/24 3:45 PM LEE WAYNE During your visit today, we recorded the following information about you: Lee Wayne MD 06/21/2024 9:16 AM Signed Lee Wayne MD Department of Orthopaedics Orthopaedics [address] [place] [address] Dept: [phone] May 24, 2024 CHIEF COMPLAINT: Established Patient [...] Please supply patient with Full face mask, [employer] VIP 7600. No current facility-administered medications for this visit. Allergies: Patient has no known allergies. Lee Wayne MD Referring Provider: LEE WAYNE [[id number]] Allergies As of Date: 05/24/2024 (No Known [...] TAB) Take (more content not included)... Normal [facility] CNOVon 04-26-2024 CNOV Office Visit (ORMDNA ) -- SYLVIE CHIU ([id number]) 1950 [facility] Date Time Provider Department 04/26/24 11:45 AM AFSANEH HAYES During your visit today, we recorded the following information about you: Afsaneh Hayes PA-C 04/26/2024 12:04 PM Signed Afsaneh Hayes PA-C Department of Orthopaedics Orthopaedics [address] [place] [address] Dept: [phone] April 26, 2024 CHIEF COMPLAINT: Post Op [...] allergies. This note was partially generated using [employer] voice recognition system, and there may be some incorrect words, spellings, and punctuation that were not noted in checking the note before saving. Afsaneh Hayes PA-C Referring Provider: LEE WAYNE [[id number]] Allergies As of Date: 04/26/2024 (No Known [...] ASV Adap (more content not included)... 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 Borderline widening of the scapholunate interval. No acute fracture. [facility] Provider, Jesus Riley - 04/01/2024 * * *Final Report* * * DATE OF EXAM: Mar 29 2024 10:03AM MDO 5270 - XR WRIST 3V PA/LAT/OBL LT / PROCEDURE REASON: [id number] * * * * Physician Interpretation * * * * PROCEDURE: Left wrist INDICATION: Pain .left wrist pain TECHNIQUE: XR WRIST 3V PA/LAT/OBL LT COMPARISON: None FINDINGS: Advanced osteopenia/osteoporosis. 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 Borderline widening of the scapholunate interval. No acute fracture. 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 Compliance Advisor: SAMANTHA Transcribe Date/Time: Apr 01 2024 7:48A Dictated by : ISAEL MAGAÑA MD This examination was interpreted and the report reviewed and electronically signed by: ISAEL MAGAÑA MD on Apr 01 2024 7:49AM EST [facility] XR Wrist - left PA and Later al and ObliqueOrdered By: Ccf Provider on 04-01-2024 [facility] XR Wrist - left PA and Later al and Obliqueon 03-29-2024 Radiology Study observation (narrative) [facility] CNOVon 02-19-2024 CNOV Office Visit (URFMOB ) -- MILENASYLVIE CAMPBELL ([id number]) 1950 [facility] Date Time Provider Department 02/19/24 3:00 PM [...] Education Session: None Instruction Provided To: Patient Manager Of Exhibitions And Collections Present: not applicable Discipline: Nursing Learning Topic: SURVIVAL SKILLS: Complication Prevention Symptom Management Patient Evaluation: Verbalizes understanding: Yes Supplemental Material Given: Written Material Instructed By Ruth Quiñones MA In Department Urology . 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 C. Prostate, left apex, biopsy: - Prostatic adenocarcinoma, Samantha score 3+3=6, grade group 1, involving 1 of 1 core (1 mm, 25%). D. Prostate, left lateral base, biopsy: - Prostatic adenocarcinoma, [place] score 3+4=7, grade group 2, involving 1 of 1 core (6 mm, 85%). - Samantha ibrahima (more content not included)... Normal [facility] UA DIP, URINE (POC)on 2023 BILIRUBIN UA (POCT) Negative Negative [facility] CLARITY UA (POCT) Clear [facility] COLOR UA (POCT) Yellow [facility] GLUCOSE UA (POCT) Negative Negative mg/dL [facility] Hemoglobin Ql (U) Negative Negative [facility] KETONE UA (POCT) Negative Negative mg/dL [facility] LEUKOCYTES UA (POCT) Negative Negative [facility] NITRITE UA (POCT) Negative Negative [facility] PH UA (POCT) 6.5 4.5 - 8.0 [facility] Protein Ql (U) Negative Negative mg/dL [facility] SPECIFIC GRAVITY UA (POCT) 1.020 1.005 - 1.030 [facility] UROBILINOGEN UA (POCT) 0.2 Carmella l E.U./dL [facility] Location:[facility], [id number] [place] [address], [address] [place] [address] POINT OF CARE [facility] No Panel Informationon 01-31 IMPRESSION: Scattered active synovitis in the hands and wrists. No tenosynovitis in the hands or wrists. Compliance Advisor: SAMANTHA Transcribe Date/Time: Feb 01 2024 9:55A Dictated by : TIERRA COKER MD This examination was interpreted and the report reviewed and electronically signed by: TIERRA COKER MD on Feb 01 2024 2:43PM [facility] DIVISION OF RADIOLOGY Radiology Study observation (narrative) [facility] No Panel InformationOrdered By: Ccf Provider on 02-01-2024 [facility] US Upper extremity - lefton 02-01-2024 * [...] No tenosynovitis in the hands or wrists. Compliance Advisor: PSCHumberto Transcribe Date/Time: Feb 01 2024 9:55A Dictated by : TIERRA COKER MD This examination was interpreted and the report reviewed and electronically signed by: TIERRA COKER MD on Feb 01 2024 2:43PM [facility] US Upper extremity - righton 02-01-2024 * [...] None. DIVISION OF RADIOLOGY Provider, Jesus [facility] - 02/01/2024 * * *Final Report* [...] No tenosynovitis in the hands or wrists. Compliance Advisor: PSCB Transcribe Date/Time: Feb 01 2024 9:55A Dictated by : TIERRA COKER MD This examination was interpreted and the report reviewed and electronically signed by: TIERRA COKER MD on Feb 01 2024 2:43PM [facility] CNOVon 01-29-2024 CNOV Office Visit (URFMOB ) -- SYLVIE CHIU ([id number]) 1950 [facility] Date Time Provider Department 01/29/24 3:40 PM SELWYN MICHELLE During your visit today, we recorded the following information about you: Pulse Blood pressure 71/minute 133/67 Milady Ordaz 01/29/2024 4:04 PM Signed [facility] FOLLOW-UP PATIENT HISTORY AND PHYSICAL EXAM PATIENT INFO: Sylvie Chiu 73 year old REFERRING M.DJj: Hussein Ordonez [id number] [facility] [id number] CHIEF COMPLAINT: Prostate cancer, LUTS HISTORY: Sylvie Chiu is a 73 year old man with 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 G. Prostate, right base, biopsy: - Benign prostate tissue. H. Prostate, right mid, biopsy: - Prostatic adenocarcinoma, [place] score 3+3=6, grade group 1, involving 2 of 2 cores (1 mm, 30%; 1 mm, 20%) I. Prostate, right apex, biopsy: - Prostatic adenocarcinoma, [place] score 3+3=6, grade group 1, involving 1 of 1 core (3 mm, 50%). J. Prostate, right lateral base, biopsy: - Benign prostate tissue. K. Prostate, right lateral mid, biopsy: - Prostatic adenocarcinoma, [place] score 3+3=6, grade group 1, involving 1 [...] 4: Present, small gland Intraductal carcinoma: Suspicious [employer] tumor block to use for additional studies: [...] essential hypertens (more content not included)... Normal [facility] UA DIP, URINE (POC)on 2023 BILIRUBIN UA (POCT) Negative Negative [facility] CLARITY UA (POCT) Clear [facility] COLOR UA (POCT) Yellow [facility] GLUCOSE UA (POCT) Negative Negative mg/dL [facility] Hemoglobin Ql (U) Negative Negative [facility] KETONE UA (POCT) Negative Negative mg/dL [facility] LEUKOCYTES UA (POCT) Negative Negative [facility] NITRITE UA (POCT) [facility] PH UA (POCT) 5.5 4.5 - 8.0 [facility] Protein Ql (U) Negative Negative mg/dL [facility] SPECIFIC GRAVITY UA (POCT) >=1.030 1.005 - 1.030 [facility] UROBILINOGEN UA (POCT) 0.2 Carmella l E.U./dL [facility] Location:[facility], [address] [place] [address], [address] [place] [address] POINT OF CARE [facility] MR Pelvis WO and W contrast Vikash 01-13-2024 IMPRESSION: 1. Grossly unremarkable appearance of the urinary bladder. No gross mass or stricture is noted. 2. No gross urethral stricture is noted. If clinically warranted, consider further evaluation with retrograde urethrogram. Compliance Advisor: SAMANTHA Transcribe Date/Time: Jan 13 2024 9:02A Dictated by : PHI HOLLIS MD This examination was interpreted and the report reviewed and electronically signed by: PHI HOLLIS MD on Jan 13 2024 9:25AM [facility] DIVISION OF RADIOLOGY * * *Final Report* * * DATE OF EXAM: Jan 12 2024 10:22AM [facility] 0742 - MRI PELVIS [...] osseous structures: Unremarkable. DIVISION OF RADIOLOGY Provider, [facility] - 01/13/2024 * * *Final Report* * * DATE OF EXAM: Jan 12 2024 10:22AM [facility] 0742 - MRI PELVIS [...] warranted, consider further evaluation with retrograde urethrogram. Compliance Advisor: PSCB Transcribe Date/Time: Jan 13 2024 9:02A Dictated by : PHI HOLLIS MD This examination was interpreted and the report reviewed and electronically signed by: PHI HOLLIS MD on Jan 13 2024 9:25AM EST [facility] MR Pelvis WO and W contrast IVOrdered By: Ccf Provider on 01-13-2024 [facility] MR Pelvis WO and W contrast Vikash 01-12-2024 Radiology Study observation (narrative) [facility] URINALYSIS, DIPSTICK ONLYon 01-12-2024 Bilirubin Ql (U) Negative Negative [facility] Clarity (Unsp spec) Clear Clear [facility] Color (U) Yellow Yellow [facility] Glucose Test strip (U) [Mass/Vol] Negative Negative [facility] Hemoglobin Ql (U) Negative Negative [facility] Ketones Ql (U) Negative Negative [facility] Leukocyte esterase Test strip Ql (U) Negative Negative [facility] Nitrite Ql (U) Negative Negative [facility] pH (U) 5.5 [pH] <8.5 [facility] Protein (U) [Mass/Vol] Negative Negative [facility] Specific gravity (U) [Rel density] 1.025 1.005 - 1.030 [facility] Urobilinogen Ql (U) 0.2 EU/dL 0.2-1.0 EU/dL [facility] ESR Westergren method (Bld) [Velocity]on 12-14-2023 ESR (Bld) [Velocity] 13 mm/h 0 - 15 mm/hr [facility] No Panel Informationon 07-20 [facility] XR Hip - left AP and Lateral on 04-12-2023 IMPRESSION: Bilatera l hip osteoarthrosis Compliance Advisor: PSCHumberto Transcribe Date/Time: Apr 12 2023 4:04P Dictated by : ISAEL MAGAÑA MD This examination was interpreted and the report reviewed and electronically signed by: ISAEL MAGAÑA MD on Apr 12 2023 4:05PM [facility] * * *Final Report* * [...] formation, little changed. No fracture or dislocation. [facility] Provider, Jesus Riley - 04/12/2023 * [...] or dislocation. IMPRESSION IMPRESSION: Bilateral hip osteoarthrosis Compliance Advisor: PSCB Transcribe Date/Time: Apr 12 2023 4:04P Dictated by : ISAEL MAGAÑA MD This examination was interpreted and the report reviewed and electronically signed by: ISAEL MAGAÑA MD on Apr 12 2023 4:05PM EST [facility] XR Hip - left AP and Lateral Ordered By: Ccf Provider on 04-12-2023 [facility] XR Hip - left AP and Lateral on 04-10-2023 Radiology Study observation (narrative) [facility] Absolute lymphocyte countOrd ered By: Norma Davies on 03-06-2023 Lymphocytes Auto (Unsp spec) [#/Vol] 0.52 10*3/uL 0.83-4.51 [facility] Basophil percentageOrdered B y: Norma Davies on 03-06-2023 Basophils/100 WBC (Bld) 0.6 % 0-1 [facility] Bilirubin [Mass/Vol] 0.40 mg/dL 0.20-1.00 [facility] Comment on above: For patients on eltr ombopag therapy, use of Dimension [place] TBIL is not recommended. Chloride [Moles/Vol] 107 mmol/L 98-107 [facility] Cholesterol [Mass/Vol] 172 mg/dL <200 [facility] Comment on above: <200 mg/dL Desirable 200-240 mg/dL Borderline >240 mg/dL High Risk Eosinophils/100 WBC (Bld) 1.9 % 0-5 [facility] Glucose [Mass/Vol] 88 mg/dL 74-106 [facility] Neutrophils (Bld) [#/Vol] 4.2 10*3/uL 2.0-7.7 [facility] Neutrophils/100 WBC (Bld) 80.5 % 47-70 [facility] Potassium [Moles/Vol] 3.9 mmol/L 3.5-5.1 [facility] Protein [Mass/Vol] 7.5 g/dL 6.4-8.2 [facility] Sodium [Moles/Vol] 140 mmol/L 136-145 [facility] Triglyceride [Mass/Vol] 126 mg/dL <199 [facility] Comment on above: The drugs N-Acetylcy steine and Metamizole may falsely depress this assay.Serum Triglycerides Reference Interval Normal <150 mg/dL Borderline high 150 - 199 mg/dL High 200 - 499 mg/dL Very High > or = 500 mg/dL WBC (Bld) [#/Vol] 5.3 10*3/uL 4.4-11.0 [facility] Blood erythrocytes count (nu mber/volume)Ordered By: Norma Davies on 03-06-2023 RBC (Bld) [#/Vol] 4.15 10*6/uL 4.6-6.2 [facility] Blood hemoglobin measurement (mass/volume)Ordered By: Norma Davies on 03-06-2023 Hemoglobin (Bld) [Mass/Vol] 13.3 g/dL 13.0-16.5 [facility] Blood lymphocytes/100 leukoc ytesOrdered By: Norma Davies on 03-06-2023 Lymphocytes/100 WBC (Bld) 9.9 % 19-41 [facility] Blood manual differential co mment interpretation (narrative result)Ordered By: Norma Davies on 03-06-2023 Manual differential comment Abhijit (Bld) [Interp] SCANNED [facility] Blood monocytes/100 leukocyt esOrdered By: Norma Davies on 03-06-2023 Monocytes/100 WBC (Bld) 6.3 % 0-10 [facility] Blood platelet mean volumeOr dered By: Norma Davies on 03-06-2023 Platelet mean volume (Bld) [Entitic vol] 11.3 fL 6.2-12.0 [facility] Determination of erythrocyte mean corpuscular volume (MCV)Ordered By: Norma Davies on 03-06-2023 MCV (RBC) [Entitic vol] 98.6 fL 80-94 [facility] Hematocrit Auto (Bld) [Volum e fraction]Ordered By: Norma Davies on 03-06-2023 Hematocrit (Bld) [Volume fraction] 40.9 % 40-54 [facility] Laboratory - Chemistry and C hemistry - challengeOrdered By: Norma Davies on 03-06-2023 ALP [Catalytic activity/Vol] 82 U/L 45-117 [facility] ALT [Catalytic activity/Vol] 21 U/L 16-61 [facility] CO2 [Moles/Vol] 29.0 mmol/L 21.0-32.0 [facility] Globulin (S) [Mass/Vol] 3.7 g/dL 2.2-4.2 [facility] Urea nitrogen/Creatinine [Mass ratio] 16.0 mg/mg 10-20 [facility] Laboratory - Hematology and Cell countsOrdered By: Norma Davies on 03-06-2023 Erythrocyte distribution width (RBC) [Entitic vol] 47.3 fL 35.1-43.9 [facility] Erythrocyte distribution width (RBC) [Ratio] 13.2 % 11.6-14.6 [facility] Immature granulocytes/100 WBC (Bld) 0.800 % 0.0-0.9 [facility] Comment on above: IG% - Immature Granu locytes (promyelocytes, myelocytes and metamyelocytes) > 1% indicates that a LEFT SHIFT is Present. MCH (RBC) [Entitic mass] 32.0 pg 27.0-32.0 [facility] Nucleated RBC/100 WBC (Bld) [Ratio] 0 % 0-5 [facility] MCHC Auto (RBC) [Mass/Vol]Or dered By: Norma Davies on 03-06-2023 MCHC (RBC) [Mass/Vol] 32.5 g/dL 32-36 [facility] No Panel InformationOrdered By: Norma Davies on 03-06-2023 Estimated GFR (MDRD) Amer 73 mL/min >60 [facility] Comment on above: GFR Calc Estimated GFR (MDRD) Non-Af Amer 61 mL/min >60 [facility] Comment on above: Non- GFR Calc Thyroid Stimulating Hormone (TSH) 2.35 uIU/mL 0.358-3.74 [facility] Platelets bldOrdered By: Corey Davies on 03-06-2023 Platelets (Bld) [#/Vol] 155 10*3/uL 150-450 [facility] Serum or plasma albumin faustino urement (mass/volume)Ordered By: Norma Davies on 03-06-2023 Albumin [Mass/Vol] 3.8 g/dL 3.2-5.0 [facility] Serum or plasma albumin/glob ulin mass ratioOrdered By: Norma Davies on 03-06-2023 Albumin/Globulin [Mass ratio] 1.0 {ratio} 0.9-2.4 [facility] Serum or plasma calcium faustino urement (mass/volume)Ordered By: Norma Davies on 03-06-2023 Calcium [Mass/Vol] 9.4 mg/dL 8.5-10.1 [facility] Serum or plasma cholesterol in HDL measurement (mass/volume)Ordered By: Norma Davies on 03-06-2023 Cholesterol in HDL [Mass/Vol] 48 mg/dL >40 [facility] Comment on above: The drugs N-Acetylcy steine and Metamizole may falsely depress this assay. Reference Range HDL <40 mg/dL Low HDL Cholesterol HDL >or= 60 mg/dL High HDL Cholesterol Serum or plasma cholesterol in VLDL measurement (mass/volume)Ordered By: Norma Davies on 03-06-2023 Cholesterol in VLDL [Mass/Vol] 25 mg/dL 5-40 [facility] Serum or plasma creatinine m easurement (mass/volume)Ordered By: Norma Davies on 03-06-2023 Creatinine [Mass/Vol] 1.25 mg/dL 0.70-1.30 [facility] Comment on above: The validity of the calculated GFR & GFRAA in patients over 70 years has not been determined. Clinical correlation is essential. Serum or plasma low density lipoprotein (LDL) cholesterol measurement (mass/volume)Ordered By: Norma Davies on 03-06-2023 Cholesterol in LDL [Mass/Vol] 99 mg/dL 0-130 [facility] Serum or plasma urea nitroge n measurement (mass/volume)Ordered By: Norma Davies on 03-06-2023 Urea nitrogen [Mass/Vol] 20 mg/dL 7-18 [facility] Thin prep Papanicolaou smear with manual screeningOrdered By: Norma Davies on 03-06-2023 Thin prep Papanicolaou smear with manual screening 15 U/L 15-37 [facility] Thin prep Papanicolaou smear with manual screening 4 5-15 [facility] Whole blood hemoglobin A1c/t otal hemoglobin ratio (mass fraction)Ordered By: Norma Davies on 03-06-2023 HbA1c (Bld) [Mass fraction] 4.9 % 3.8-5.6 [facility] Comment on above: Normal < 5.7 % Predi abetic 5.7 - 6.4 % Diabetic >or= 6.5 % Please note range changes. No Panel InformationOrdered By: Ccf Provider on 02-07-2023 [facility] XR Hand - left PA and Latera l and Obliqueon 02-07-2023 IMPRESSION: Degenera tive changes. No acute abnormality Compliance Advisor: SAMANTHA Transcribe Date/Time: Feb 07 2023 7:11P Dictated by : ISAEL MAGAÑA MD This examination was interpreted and the report reviewed and electronically signed by: ISAEL MAGAÑA MD on Feb 07 2023 7:13PM [facility] * * *Final Report* * [...] No erosion or focal soft tissue swelling. [facility] Provider, Jesus Riley - 02/07/2023 * [...] IMPRESSION IMPRESSION: Degenerative changes. No acute abnormality Compliance Advisor: [facility] Transcribe Date/Time: Feb 07 2023 7:11P Dictated by : ISAEL MAGAÑA MD This examination was interpreted and the report reviewed and electronically signed by: ISAEL MAGAÑA MD on Feb 07 2023 7:13PM EST [facility] XR Hand - right PA and Later al and Obliqueon 02-07-2023 IMPRESSION: Degenera tive changes. No acute abnormality Compliance Advisor: [facility] Transcribe Date/Time: Feb 07 2023 7:11P Dictated by : ISAEL MAGAÑA MD This examination was interpreted and the report reviewed and electronically signed by: ISAEL MAGAÑA MD on Feb 07 2023 7:15PM EST [facility] * * *Final Report* * * [...] No erosion or focal soft tissue swelling. [facility] Provider, [facility] [place] - 02/07/2023 * * *Final Report* * [...] IMPRESSION IMPRESSION: Degenerative changes. No acute abnormality Compliance Advisor: SAMANTHA Transcribe Date/Time: Feb 07 2023 7:11P Dictated by : ISAEL MAGAÑA MD This examination was interpreted and the report reviewed and electronically signed by: ISAEL MAGAÑA MD on Feb 07 2023 7:15PM EST [facility] XR HAND GENERAL 3V PA/LAT/OB L RIGHTon 02-05-2023 [facility] XR Hand - left PA and Latera l and Obliqueon 02-05-2023 Radiology Study observation (narrative) [facility] XR Hand - right PA and Later al and Obliqueon 02-05-2023 Radiology Study observation (narrative) [facility] US DVT LOWER LTon 12-02-2022 [facility] US Lower extremity vein - le fton 12-02-2022 Addendum by Provider , [facility] [place] on 12/02/2022 1:42 PM EST * * [...] on 12/02/2022 1:40 PM via verbal communication. Compliance Advisor: SAMANTHA Transcribe Date/Time: Dec 02 2022 1:39P Dictated by : ROSHNI GODINEZ MD This examination was interpreted and the report reviewed and electronically signed by: ROSHNI GODINEZ MD on Dec 02 2022 1:28PM EST This document has been addended by: ROSHNI GODINEZ MD on Dec 02 2022 1:40PM EST [facility] Radiology Study observation (narrative) [facility] US Lower extremity vein - le ftOrdered By: Ccf Provider on 12-02-2022 [facility] XR Shoulder - right 3 Viewso n 09-12-2022 IMPRESSION: Degenerative changes. Findings suggestive of rotator cuff calcific tendinosis. Compliance Advisor: PSCB Transcribe Date/Time: Sep 12 2022 11:35A [...] abnormality. [facility]ISION OF RADIOLOGY Provider, Jesus perera [place] - 09/12/2022 * * *Final Report* * [...] Findings suggestive of rotator cuff calcific tendinosis. Compliance Advisor: SAMANTHA Transcribe Date/Time: Sep 12 2022 11:35A Dictated by : VONDA BARON MD This examination was interpreted and the report reviewed and electronically signed by: VONDA BARON MD on Sep 12 2022 11:38AM EST [facility] Radiology Study observation (narrative) [facility] XR Shoulder - right 3 ViewsO rdered By: Ccf Provider on 09-12-2022 [facility] NM PET/CT PROSTATE WBon 07-29 NM PET/CT PROSTATE WB * * *Final Report* * * DATE OF EXAM: Aug 07 2022 9:51AM [facility] [id number] - NM PET/CT PROSTATE WB / PROCEDURE REASON: C61 * * * * Physician Interpretation * * * * [id number] WHOLE BODY PET/CT SCAN HISTORY: 72-year-old man with prostate cancer. Pre-treatment staging. Prostate cancer grade: Grade Group 2 ([place] score 3 + 4) 2021 Therapy: Prior ADT: PSA: 5.5 ng/mL (06/04/2022) PREVIOUS COMPARISON PET/CT STUDY: none OTHER COMPARISON: MRI 07/17/2022 TECHNIQUE: 10 mCi of [id number]. The PET imaging was obtained between TOP [...] lesions in the bone, follow-up is recommended. Compliance Advisor: PSCB Transcribe Date/Time: Aug 07 2022 10:21A Dictated by : BECKIE MARTINEZ MD This examination was interpreted and the report reviewed and electronically signed by: BECKIE MARTINEZ MD on Aug 07 2022 10:42AM EST [id number] Normal [facility] CNOVon 07-29-2022 CNOV Office Visit (AKURFL ) -- SYLVIE CHIU ([id number]) 1950 M [facility] Date Time Provider Department 07/29/22 1:15 PM VAZQUEZ PAGE During your visit today, we recorded the following information about you: Blood pressure Weight Height 128/76 145.2 kg 1.803 m Vazquez Page DO 07/29/2022 1:57 PM Signed [facility] [place] [facility] LOCATION: [address] [place] [address] ESTABLISHED PATIENT PATIENT INFO: Sylvie Chiu 72 [...] left lateral base, biopsy: - Prostatic adenocarcinoma, [place] score 3+4=7, grade group 2, involving 1 of 1 core (6 mm, 85%). - [place] pattern 4 comprises approximately 10% of the carcinoma. - Small gland cribriform morphology is identified. - Atypical intraductal proliferation (AIP) is present. E. Prostate, left lateral mid, biopsy: - Prostatic adenocarcinoma, [place] score 3+3=6, grade group 1, involving 1 of 1 core (2 mm, 50%). F. Prostate, left lateral apex, biopsy: - Prostatic adenocarcinoma, [place] score 3+3=6, grade group 1, involving 1 [...] right lateral mid, biopsy: - Prostatic adenocarcinoma, [place] score 3+3=6, grade group 1, involving 1 of 1 core (1 mm, 10%). L.Prostate, right lateral apex, biopsy: - Prostatic adenocarcinoma, [place] score 3+3=6, grade group 1, involving 1 of 1 core (2 mm, 30%). Prostate Cancer Biopsy Summary Number of cores examined: 13 Number of cores positive: 10 Highest Grade Group: 2 Highest % of core involvement: 85 % Cribriform pattern 4: Present, small gland Intraductal carcinoma: Suspicious [employer] tumor block to use for additional studies: [...] 60.9 Lymph% (%) Date Value 10/04/2021 29.0 Lander% (%) Date Value 10/04/2021 6.7 Eosin% (%) Date Value 10/04/2021 2.4 Baso% (%) Date Value 10/04/2021 1.0 Abs Neut (ANC) (k/uL) Date Value 10/04/2021 4.06 Abs Lym (X10-3/UL) Date Value 03/22/2010 1.6 Abs Lander (k/uL) Date Value 10/04/2021 0.45 Abs Eosin [...] 11/21/2021 IMAGING: MRI PROSTATE WO/W IVCON (Order [id number]) Patient Info Patient Name Sex Sylvie Dumont ([id number]) Male 1950 07/21/2022 11:06 AM - Radi (more content not included)... Normal [facility] MRI PROSTATE WO/W IVCONon MRI PROSTATE WO/W IVCON * * *Final Report* * * DATE OF EXAM: Jul 17 2022 11:00AM [place] [id number] - MRI PROSTATE WO/W IVCON / PROCEDURE REASON: Prostate cancer (HCC) * * * * Physician Interpretation * * * * EXAMINATION: MRI PELVIS WITHOUT AND WITH IV CONTRAST (MULTIPARAMETRIC PROSTATE MRI) CLINICAL HISTORY: 72 years old male with elevated PSA and prostate biopsy from 05/08/2022 showing Samantha 3+3 = 7 left base and [place] 3+3 = 6 in left mid gland, [...] volume were obtained using a semi-automated software ([id number]). CONTRAST: IV: 20 cc of Dotarem. COMPARISON: [...] Clinically significant cancer is highly likely (V.05.2018) Compliance Advisor: SAMANTHA Transcribe Date/Time: Jul 21 2022 10:47A Dictated by : HONEY LAMB MD This examination was interpreted and the report reviewed and electronically signed by: HONEY LAMB MD on Jul 21 2022 11:03AM EST [id number] Normal [facility] CNPNon 06-19-2022 CNPN Telephone (AKURFL) -- CUTLISA CAMPBELLRY Eyal ([id number]) 1950 [facility] Date Time Provider Department 06/19/22 VAZQUEZ PAGE [...] Please supply patient with Full face mask, [employer] VIP [phone]. Problem List As Of Date [...] by JULIA HERNANDEZ CMA on 06/19/[address] [facility] CT PELVIS W IVCONon 06-09-20 [facility] No Panel Informationon 06-09 [facility] Absolute lymphocyte counton 03-03-2022 Lymphocytes Auto (Unsp spec) [#/Vol] 0.91 10*3/uL 0.83-4.51 [facility] Work Phone: Basophil percentageon 2021 Basophils/100 WBC (Bld) 0.8 % 0-1 [facility] Work Phone: Bilirubin [Mass/Vol] 0.40 mg/dL 0.20-1.00 [facility] Work Phone: Comment on above: For patients on eltr ombopag therapy, use of Dimension [place] TBIL is not recommended. Chloride [Moles/Vol] 106 mmol/L 98-107 [facility] Work Phone: Cholesterol [Mass/Vol] 153 mg/dL <200 [facility] Work Phone: Comment on above: <200 mg/dL Desirable 200-240 mg/dL Borderline >240 mg/dL High Risk Eosinophils/100 WBC (Bld) 2.7 % 0-5 [facility] Work Phone: Glucose [Mass/Vol] 106 mg/dL 74-106 [facility] Work Phone: Comment on above: Fasting Glucose resu lt from 100 to 125 mg/dL suggests IMPAIRED HOMEOSTASIS per A.D.A. criteria. Neutrophils (Bld) [#/Vol] 2.2 10*3/uL 2.0-7.7 [facility] Work Phone: Neutrophils/100 WBC (Bld) 60.7 % 47-70 [facility] Work Phone: Potassium [Moles/Vol] 4.2 mmol/L 3.5-5.1 [facility] Work Phone: Protein [Mass/Vol] 7.4 g/dL 6.4-8.2 [facility] Work Phone: Sodium [Moles/Vol] 140 mmol/L 136-145 [facility] Work Phone: Triglyceride [Mass/Vol] 120 mg/dL [facility] Work Phone: Comment on above: The drugs N-Acetylcy steine and Metamizole may falsely depress this assay.Serum Triglycerides Reference Interval Normal <150 mg/dL Borderline high 150 - 199 mg/dL High 200 - 499 mg/dL Very High > or = 500 mg/dL WBC (Bld) [#/Vol] 3.7 10*3/uL 4.4-11.0 [facility] Work Phone: Blood erythrocytes count (nu mber/volume)on 03-03-2022 RBC (Bld) [#/Vol] 4.75 10*6/uL 4.6-6.2 [facility] Work Phone: Blood hemoglobin measurement (mass/volume)on 03-03-2022 Hemoglobin (Bld) [Mass/Vol] 14.6 g/dL 13.0-16.5 [facility] Work Phone: Blood lymphocytes/100 leukoc yteson 03-03-2022 Lymphocytes/100 WBC (Bld) 24.7 % 19-41 [facility] Work Phone: Blood monocytes/100 leukocyt eson 03-03-2022 Monocytes/100 WBC (Bld) 10.3 % 0-10 [facility] Work Phone: Blood platelet mean volumeon 03-03-2022 Platelet mean volume (Bld) [Entitic vol] 12.2 fL 6.2-12.0 [facility] Work Phone: Determination of erythrocyte mean corpuscular volume (MCV)on 03-03-2022 MCV (RBC) [Entitic vol] 94.3 fL 80-94 [facility] Work Phone: Hematocrit Auto (Bld) [Volum e fraction]on 03-03-2022 Hematocrit (Bld) [Volume fraction] 44.8 % 40-54 [facility] Work Phone: Laboratory - Chemistry and C hemistry - challengeon 03-03-2022 ALP [Catalytic activity/Vol] 81 U/L 45-117 [facility] Work Phone: ALT [Catalytic activity/Vol] 28 U/L 16-61 [facility] Work Phone: CO2 [Moles/Vol] 30.0 mmol/L 21.0-32.0 [facility] Work Phone: Globulin (S) [Mass/Vol] 3.5 g/dL 2.2-4.2 [facility] Work Phone: Urea nitrogen/Creatinine [Mass ratio] 15.1 mg/mg 10-20 [facility] Work Phone: Laboratory - Hematology and Cell countson 03-03-2022 Erythrocyte distribution width (RBC) [Entitic vol] 47.8 fL 35.1-43.9 [facility] Work Phone: Erythrocyte distribution width (RBC) [Ratio] 13.8 % 11.6-14.6 [facility] Work Phone: Immature granulocytes/100 WBC (Bld) 0.800 % 0.0-0.9 [facility] Work Phone: Comment on above: IG% - Immature Granu locytes (promyelocytes, myelocytes and metamyelocytes) > 1% indicates that a LEFT SHIFT is Present. MCH (RBC) [Entitic mass] 30.7 pg 27.0-32.0 [facility] Work Phone: Nucleated RBC/100 WBC (Bld) [Ratio] 0 % 0-5 [facility] Work Phone: MCHC Auto (RBC) [Mass/Vol]on 03-03-2022 MCHC (RBC) [Mass/Vol] 32.6 g/dL 32-36 [facility] Work Phone: No Panel Informationon 03-03 Estimated GFR (MDRD) Amer 78 mL/min >60 [facility] Work Phone: Comment on above: GFR Calc Estimated GFR (MDRD) Non-Af Amer 64 mL/min >60 [facility] Work Phone: Comment on above: Non- GFR Calc Prostate Specific Antigen Total 5.69 ng/mL 0.0-4.0 [facility] Work Phone: Comment on above: This test was perfor med using the TPSA assay method for theThe [employer] chemistry system. Values obtained with differentassay methods cannot be used interchangably.When changing PSA assays in the course of monitoring apatient, additional sequential testing should be carriedout to confirm baseline values. Platelets bldon 03-03-2022 Platelets (Bld) [#/Vol] 127 10*3/uL 150-450 [facility] Work Phone: Serum or plasma albumin faustino urement (mass/volume)on 03-03-2022 Albumin [Mass/Vol] 3.9 g/dL 3.2-5.0 [facility] Work Phone: Serum or plasma albumin/glob ulin mass ratioon 03-03-2022 Albumin/Globulin [Mass ratio] 1.1 {ratio} 0.9-2.4 [facility] Work Phone: Serum or plasma calcium faustino urement (mass/volume)on 03-03-2022 Calcium [Mass/Vol] 8.9 mg/dL 8.5-10.1 [facility] Work Phone: Serum or plasma cholesterol in HDL measurement (mass/volume)on 03-03-2022 Cholesterol in HDL [Mass/Vol] 35 mg/dL [facility] Work Phone: Comment on above: The drugs N-Acetylcy steine and Metamizole may falsely depress this assay. Reference Range HDL <40 mg/dL Low HDL Cholesterol HDL >or= 60 mg/dL High HDL Cholesterol Serum or plasma cholesterol in VLDL measurement (mass/volume)on 03-03-2022 Cholesterol in VLDL [Mass/Vol] 24 mg/dL 5-40 [facility] Work Phone: Serum or plasma creatinine m easurement (mass/volume)on 03-03-2022 Creatinine [Mass/Vol] 1.19 mg/dL 0.70-1.30 [facility] Work Phone: Comment on above: The validity of the calculated GFR & GFRAA in patients over 70 years has not been determined. Clinical correlation is essential. Serum or plasma low density lipoprotein (LDL) cholesterol measurement (mass/volume)on 03-03-2022 Cholesterol in LDL [Mass/Vol] 94 mg/dL 0-130 [facility] Work Phone: Serum or plasma urea nitroge n measurement (mass/volume)on 03-03-2022 Urea nitrogen [Mass/Vol] 18 mg/dL 7-18 [facility] Work Phone: Thin prep Papanicolaou smear with manual screeningon 03-03-2022 Thin prep Papanicolaou smear with manual screening 24 U/L 15-37 [facility] Work Phone: Thin prep Papanicolaou smear with manual screening 4 5-15 [facility] Work Phone: XR KNEE GENERAL 4V AP BOTH/P A BOTH/LAT/MERC LEFTon 12-24-2021 [facility] XR CHEST 2V FRONTAL/LATon XR CHEST 2V [...] thoracic spine. IMPRESSION: No acute radiographic abnormality. Compliance Advisor: PSCB Transcribe Date/Time: Aug 15 2021 11:12A Dictated by : ALBERT WHITE MD This examination was interpreted and the report reviewed and electronically signed by: ALBERT WHITE MD on Aug 15 2021 11:14AM EST [id number] Normal [facility] No Panel Information [facility] Vital Signs Date Time Vital Sign Value Performing Clinician Facility 03-09-2025 20:38-0400 Body height 182.88 cm Norma FREGOSOC Work Phone: [facility] 03-09-2025 20:38-0400 Body mass index (BMI) [Ratio] 40.4 kg/m2 Norma Davies NP-C Work Phone: [facility] 03-09-2025 20:38-0400 Body temperature 97.7 [degF] Norma Davies NP-C Work Phone: [facility] 03-09-2025 20:38-0400 Body weight 135.17 kg Norma Davies NP-C Work Phone: [facility] 03-09-2025 20:38-0400 Diastolic blood pressure 70 mm[Hg] Norma Davies NP-C Work Phone: [facility] 03-09-2025 20:38-0400 Heart rate 52 /min Norma Davies TITLE SUPERVISOR-C Work Phone: [facility] 03-09-2025 20:38-0400 Respiratory rate 18 /min Norma Davies TITLE SUPERVISOR-C Work Phone: [facility] 03-09-2025 20:38-0400 SaO2% (BldA) [Mass fraction] 95 % Norma Davies TITLE SUPERVISOR-C Work Phone: [facility] 03-09-2025 20:38-0400 Systolic blood pressure 130 mm[Hg] Norma Davies TITLE SUPERVISOR-C Work Phone: [facility] 03-02-2025 07:55-0400 Body height 180.3 cm Natan Alcazar DO Work Phone: [facility] 03-02-2025 07:55-0400 Body mass index (BMI) [Ratio] 41.7 kg/m2 Natan Alcazar DO Work Phone: [facility] 03-02-2025 07:55-0400 Body weight 135.63 kg Natan Alcazar DO Work Phone: [facility] 12-23-2024 09:45-0400 Body mass index (BMI) [Ratio] 42.46 kg/m2 Hussein Ordonez MD Work Phone: [facility] 12-23-2024 09:45-0400 Body weight 142.02 kg Hussein Ordonez MD Work Phone: [facility] 08-02-2024 09:14-0500 Body height 182.9 cm Natan Alcazar DO Work Phone: [facility] 08-02-2024 09:14-0500 Body mass index (BMI) [Ratio] 42.72 kg/m2 Natan Alcazar DO Work Phone: [facility] 08-02-2024 09:14-0500 Body weight 142.88 kg Natan Alcazar DO Work Phone: [facility] 02-18-2024 08:18-0400 Diastolic blood pressure 74 mm[Hg] Francisco Davis ROGUER.AUTOMOTIVE ACCESSORY INSTALLER Work Phone: [facility] 02-18-2024 08:18-0400 Heart rate 52 /min Francisco Davis ROGUER.AUTOMOTIVE ACCESSORY INSTALLER Work Phone: [facility] 02-18-2024 08:18-0400 Systolic blood pressure 150 mm[Hg] Francisco Davis ROGUER.AUTOMOTIVE ACCESSORY INSTALLER Work Phone: [facility] 02-18-2024 08:15-0400 Body height 183.4 cm Francisco Davis ROGUER.AUTOMOTIVE ACCESSORY INSTALLER Work Phone: [facility] 02-18-2024 08:15-0400 Body mass index (BMI) [Ratio] 42.49 kg/m2 Francisco Davis ROGUER.AUTOMOTIVE ACCESSORY INSTALLER Work Phone: [facility] 02-18-2024 08:15-0400 Body temperature 97.81 [degF] Francisco Davis ROGUER.AUTOMOTIVE ACCESSORY INSTALLER Work Phone: [facility] 02-18-2024 08:15-0400 Body weight 142.88 kg Francisco Davis ROGUER.AUTOMOTIVE ACCESSORY INSTALLER Work Phone: [facility] 01-29-2024 15:40-0400 Diastolic blood pressure 67 mm[Hg] Selwyn Michelle MD Work Phone: [facility] 01-29-2024 15:40-0400 Heart rate 71 /min Selwyn Michelle MD Work Phone: [facility] 01-29-2024 15:40-0400 Systolic blood pressure 133 mm[Hg] Selwyn Michelle MD Work Phone: [facility] 12-17-2023 09:26-0400 Body weight 145.1 kg Hussein Ordonez MD Work Phone: [facility] 12-14-2023 13:57-0400 Body height 180.3 cm Alex Erazo MD Work Phone: [facility] 12-14-2023 13:57-0400 Body temperature 97.59 [degF] Alex Erazo MD Work Phone: [facility] 12-14-2023 13:57-0400 Body weight 146.06 kg Alex Erazo MD Work Phone: [facility] 12-14-2023 13:57-0400 Diastolic blood pressure 73 mm[Hg] Alex Erazo MD Work Phone: [facility] 12-14-2023 13:57-0400 Heart rate 58 /min Alex Erazo MD Work Phone: [facility] 12-14-2023 13:57-0400 Systolic blood pressure 117 mm[Hg] Alex Erazo MD Work Phone: [facility] 06-15-2023 11:52-0400 Body weight 143.79 kg Hussein Ordonez MD Work Phone: [facility] 03-12-2023 12:46-0400 Diastolic blood pressure 63 mm[Hg] Patricia Naso ROGUER.AUTOMOTIVE ACCESSORY INSTALLER Work Phone: [facility] 03-12-2023 12:46-0400 Systolic blood pressure 119 mm[Hg] Patricia Naso ROGUER.AUTOMOTIVE ACCESSORY INSTALLER Work Phone: [facility] 03-12-2023 12:45-0400 Body temperature 97.5 [degF] Patricia Naso ROGUER.AUTOMOTIVE ACCESSORY INSTALLER Work Phone: [facility] 03-12-2023 12:45-0400 Body weight 139.44 kg Patricia Naso ROGUER.AUTOMOTIVE ACCESSORY INSTALLER Work Phone: [facility] 03-12-2023 12:45-0400 Heart rate 60 /min Patricia Naso ROGUER.AUTOMOTIVE ACCESSORY INSTALLER Work Phone: [facility] 03-12-2023 12:45-0400 Respiratory rate 18 /min Patricia Naso ROGUER.AUTOMOTIVE ACCESSORY INSTALLER Work Phone: [facility] 03-12-2023 12:45-0400 SaO2% (BldA) [Mass fraction] 100 % Patricia Mims APRN.CNP Work Phone: [facility] 03-06-2023 18:02-0400 Body height 182.88 cm [facility] 03-06-2023 18:02-0400 Body mass index (BMI) [Ratio] 42.3 kg/m2 [facility] 03-06-2023 18:02-0400 Body temperature 97.5 [degF] [facility] 03-06-2023 18:02-0400 Body weight 141.52 kg [facility] 03-06-2023 18:02-0400 Diastolic blood pressure 70 mm[Hg] [facility] 03-06-2023 18:02-0400 Heart rate 71 /min [facility] 03-06-2023 18:02-0400 Respiratory rate 18 /min [facility] 03-06-2023 18:02-0400 SaO2% (BldA) [Mass fraction] 96 % [facility] 03-06-2023 18:02-0400 Systolic blood pressure 130 mm[Hg] [facility] 01-12-2023 10:27-0400 Body weight 145.79 kg Hussein Ordonez MD Work Phone: [facility] 12-15-2022 18:12-0400 Body mass index (BMI) [Ratio] 43.8 kg/m2 [facility] 12-15-2022 18:12-0400 Body temperature 98.1 [degF] [facility] 12-15-2022 18:12-0400 Body weight 146.51 kg [facility] 12-15-2022 18:12-0400 Diastolic blood pressure 60 mm[Hg] [facility] 12-15-2022 18:12-0400 Heart rate 82 /min [facility] 12-15-2022 18:12-0400 Respiratory rate 18 /min [facility] 12-15-2022 18:12-0400 SaO2% (BldA) [Mass fraction] 96 % [facility] 12-15-2022 18:12-0400 Systolic blood pressure 122 mm[Hg] [facility] 12-10-2022 10:38-0400 Body weight 148.73 kg Hussein Ordonez MD Work Phone: [facility] 12-09-2022 09:04-0400 Body temperature 98.1 [degF] Patricia Naso ROGUER.AUTOMOTIVE ACCESSORY INSTALLER Work Phone: [facility] 12-09-2022 09:04-0400 Body weight 148.73 kg Patricia Naso ROGUER.AUTOMOTIVE ACCESSORY INSTALLER Work Phone: [facility] 12-09-2022 09:04-0400 Diastolic blood pressure 70 mm[Hg] Patricia Naso ROGUER.AUTOMOTIVE ACCESSORY INSTALLER Work Phone: [facility] 12-09-2022 09:04-0400 Heart rate 57 /min Patricia Naso ROGUER.AUTOMOTIVE ACCESSORY INSTALLER Work Phone: [facility] 12-09-2022 09:04-0400 Respiratory rate 18 /min Patricia Naso ROGUER.AUTOMOTIVE ACCESSORY INSTALLER Work Phone: [facility] 12-09-2022 09:04-0400 SaO2% (BldA) [Mass fraction] 97 % Patricia Naso ROGUER.AUTOMOTIVE ACCESSORY INSTALLER Work Phone: [facility] 12-09-2022 09:04-0400 Systolic blood pressure 136 mm[Hg] Patricia Naso ROGUER.AUTOMOTIVE ACCESSORY INSTALLER Work Phone: [facility] 12-03-2022 10:47-0500 Body weight 149.19 kg Hussein Ordonez MD Work Phone: [facility] 11-26-2022 10:10-0500 Body weight 147.33 kg Hussein Ordonez MD Work Phone: [facility] 11-19-2022 13:21-0500 Body weight 147.37 kg Hussein Ordonez MD Work Phone: [facility] 11-11-2022 10:39-0500 Body weight 148.1 kg Hussein Ordonez MD Work Phone: [facility] 09-09-2022 08:28-0500 Body temperature 98.29 [degF] Injection Mc Work Phone: [facility] 09-09-2022 08:28-0500 Diastolic blood pressure 66 mm[Hg] Injection Mc Work Phone: [facility] 09-09-2022 08:28-0500 Heart rate 51 /min Injection Mc Work Phone: [facility] 09-09-2022 08:28-0500 SaO2% (BldA) [Mass fraction] 96 % Injection Mc Work Phone: [facility] 09-09-2022 08:28-0500 Systolic blood pressure 101 mm[Hg] Injection Mc Work Phone: [facility] 09-04-2022 12:06-0500 Body height 180.3 cm Brandtbebe Page DO Work Phone: [facility] 09-04-2022 12:06-0500 Body weight 146.97 kg Brandtbebe Page DO Work Phone: [facility] 08-11-2022 13:00-0500 Body height 180.2 cm Rickie Agosto MD Work Phone: [facility] 08-11-2022 13:00-0500 Body temperature 98.01 [degF] Rickie Agosto MD Work Phone: [facility] 08-11-2022 13:00-0500 Body weight 147.87 kg Rickie Agosto MD Work Phone: [facility] 08-11-2022 13:00-0500 Diastolic blood pressure 76 mm[Hg] Rickie Agosto MD Work Phone: [facility] 08-11-2022 13:00-0500 Heart rate 73 /min Rickie Agosto MD Work Phone: [facility] 08-11-2022 13:00-0500 Respiratory rate 16 /min Rickie Agosto MD Work Phone: [facility] 08-11-2022 13:00-0500 SaO2% (BldA) [Mass fraction] 97 % Rickie Agosto MD Work Phone: [facility] 08-11-2022 13:00-0500 Systolic blood pressure 144 mm[Hg] Rickie Agosto MD Work Phone: [facility] 07-29-2022 13:07-0400 Body height 180.3 cm Jayram Camilo DO Work Phone: [facility] 07-29-2022 13:07-0400 Body weight 145.15 kg Jayram Camilo DO Work Phone: [facility] 07-29-2022 13:07-0400 Diastolic blood pressure 76 mm[Hg] Jayram Camilo DO Work Phone: [facility] 07-29-2022 13:07-0400 Systolic blood pressure 128 mm[Hg] Jayram Camilo DO Work Phone: [facility] 06-24-2022 13:34-0400 Body weight 147.78 kg Hussein Ordonez MD Work Phone: [facility] 06-19-2022 09:07-0400 Body height 185.4 cm Jayram Camilo DO Work Phone: [facility] 06-19-2022 09:07-0400 Body weight 145.15 kg Jayram Camilo DO Work Phone: [facility] 03-03-2022 15:40-0400 Body height 182.88 cm [facility] Work Phone: 03-03-2022 15:40-0400 Body mass index (BMI) [Ratio] 43.7 kg/m2 [facility] Work Phone: 03-03-2022 15:40-0400 Body temperature 97.8 [degF] [facility] Work Phone: 03-03-2022 15:40-0400 Body weight 146.05 kg [facility] Work Phone: 03-03-2022 15:40-0400 Diastolic blood pressure 70 mm[Hg] [facility] Work Phone: 03-03-2022 15:40-0400 Heart rate 73 /min [facility] Work Phone: 03-03-2022 15:40-0400 Respiratory rate 18 /min [facility] Work Phone: 03-03-2022 15:40-0400 SaO2% (BldA) [Mass fraction] 96 % [facility] Work Phone: 03-03-2022 15:40-0400 Systolic blood pressure 128 mm[Hg] [facility] Work Phone: Encounters Encounter Date Encounter Type Care Provider Facility Start: 05-03-2025 End: 05-03-2025 ambulatory MAYRA BUENROSTRO Facility:[facility] Start: 04-21-2025 End: 04-21-2025 Patient encounter procedure Mayra Buenrostro PA-C Work Phone: Orthopaedics Comment on above: Primary osteoarthrit is of left hip (Primary Dx); Lumbago-sciatica due to displacement of lumbar intervertebral disc Start: 04-21-2025 End: 04-21-2025 ambulatory MAYRA BUENROSTRO Facility:[facility] Start: 04-21-2025 End: 04-21-2025 Subsequent hospital visit by physician [facility] Work Phone: Radiology Comment on above: Left hip pain [M25.5 52] Start: 04-18-2025 End: 04-18-2025 Orders Only Mayra Buenrostro PA-C Work Phone: Orthopaedics Comment on above: Left hip pain (Prima ry Dx) Start: 03-09-2025 End: 03-09-2025 ambulatory Norma Davies TITLE SUPERVISOR-C Work Phone: [facility] Work Phone: Start: 03-09-2025 End: 03-09-2025 Patient encounter procedure Norma Davies TITLE SUPERVISOR-C -Laboratory Specimen Work Phone: Start: 03-09-2025 End: 03-09-2025 ambulatory Norma Davies TITLE SUPERVISOR Facility:[facility] Start: 03-03-2025 End: 03-03-2025 Office outpatient visit 15 minutes Selwyn Leiva PA-C Work Phone: Orthopaedics Comment on above: Status post total ri ght knee replacement (Primary Dx); Primary osteoarthritis of left knee Start: 03-03-2025 End: 03-03-2025 ambulatory NORMA DAVIES Facility:[facility] Start: 03-03-2025 End: 03-03-2025 Subsequent hospital visit by physician Radio [facility] Work Phone: Radiology Comment on above: Left knee pain, unsp ecified chronicity [M25.562] Start: 03-02-2025 End: 03-02-2025 Patient encounter procedure Natan Alcazar DO Work Phone: Orthopaedics Comment on above: 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) Start: 03-02-2025 End: 03-02-2025 ambulatory NATAN ALCAZAR Facility:[facility] Start: 02-27-2025 End: 02-27-2025 Orders Only Selwyn Leiva PA-C Work Phone: Orthopaedics Comment on above: Left knee pain, unsp ecified chronicity (Primary Dx) Start: 01-19-2025 End: 01-19-2025 Emergency department patient visit NORMA DAVIES Facility:[facility] Start: 12-23-2024 End: 12-23-2024 ambulatory HUSSEIN ORDONEZ Facility:[facility] Start: 12-23-2024 End: 12-23-2024 Office outpatient [...] Care Start: 09-12-2024 End: 09-12-2024 ambulatory HUSSEIN RODONEZ [facility] Comment on above: [...] 08-02-2024 Subsequent hospital visit by physician [facility] Radiology Comment on above: Right hand pain [M79 .641] Start: 08-02-2024 End: 08-02-2024 ambulatory NATAN ALCAZAR Facility:[facility] Start: 08-02-2024 End: 08-02-2024 Patient encounter [...] Start: 07-05-2024 End: 07-05-2024 ambulatory NORMA DAVIES Facility:[facility] Start: 07-05-2024 End: 07-05-2024 Patient encounter procedure Lee Wayne MD Work Phone: Orthopaedics Comment on above: 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) Start: 06-24-2024 End: 06-24-2024 ambulatory HUSSIEN ORDONEZ Facility:[facility] Start: 06-24-2024 End: 06-24-2024 Office outpatient visit 10 minutes Hussein Ordonez MD Work Phone: Radiation Oncology Comment on above: Radiation proctitis (Primary Dx); Radiation cystitis; Radiation injury of bowel, sequela Start: 06-06-2024 End: 06-06-2024 ambulatory HUSSEIN ORDONEZ Facility:[facility] Start: 05-24-2024 End: 05-24-2024 ambulatory NORMA DAVIES Facility:[facility] Start: 05-24-2024 End: 05-24-2024 Patient encounter procedure Lee Wayne MD Work Phone: Orthopaedics Comment on above: Carpal tunnel syndro me on left (Primary Dx) Start: 04-28-2024 Refill Hussein Ordonez MD Work Phone: Radiation Oncology Comment on above: Refill Request Start: 04-26-2024 End: 04-26-2024 ambulatory AFSANEH HAYES Facility:[facility] Start: 04-26-2024 End: 04-26-2024 Patient encounter [...] hospital visit by physician [facility] Work Phone: Radiology Comment on above: Pain [R52] Start: 03-20-2024 Orders Only Patria Horton ulises CORRALES Work Phone: Appointment Center Comment on above: Pain (Primary Dx) Start: 03-02-2024 End: 03-02-2024 Subsequent hospital visit by physician [facility] Rad[facility] Comment on above: Pain in thoracic spi ne [M54.6] Start: 02-19-2024 End: 02-19-[address] [facility] Facility:[facility] Start: 02-19-2024 End: 02-19-2024 Patient encounter procedure [...] hospital visit by physician Rena [facility] Rej Work Phone: Radiology Comment on above: Pain in joint, multi ple sites [M25.50] Start: 01-29-2024 End: 01-29-2024 ambulatory NORMA DAVIES Facility:[facility] Start: 01-29-2024 End: 01-29-2024 Patient encounter procedure [...] End: 07-20-2023 [facility] Comment on [...] End: 04-10-2023 Subsequent hospital visit by physician [facility] Shayla Mathews Work Phone: Radiology Comment on above: Pain in left hip [M2 5.552] Start: 03-12-2023 End: 03-12-2023 ambulatory Patricia Mims APRN.CNP Work Phone: Hematology/Oncology Comment on above: Prostate cancer (HCC ) (Primary Dx); Encounter for monitoring Lupron therapy; Diarrhea, unspecified type; Hypercalcemia Start: 03-12-2023 End: 03-12-2023 Patient encounter procedure Patricia Julio Cesarelmer BARNEY Work Phone: [facility] Start: 03-06-2023 End: 03-06-2023 ambulatory [facility] Work Phone: Start: 03-06-2023 End: 03-06-2023 Patient encounter procedure [facility]-Laboratory, Specimen Start: 03-04-2023 Refill Hussein Ordonez [...] encounter procedure Hussein Ordonez MD Work Phone: [facility] Start: 12-16-2022 Radiation Oncology Note Hussein Ordonez MD Work Phone: Radiation Oncology Comment on above: Completion Note Start: 12-10-2022 End: 12-10-2022 Patient encounter procedure Hussein Ordonez MD Work Phone: Radiation Oncology Comment on above: Prostate cancer (HCC ) (Primary Dx) Start: 12-09-2022 End: 12-09-2022 Patient encounter procedure Patricia Prasanna DREW.AUTOMOTIVE ACCESSORY INSTALLER Work Phone: [facility] Start: 12-09-2022 End: 12-09-2022 ambulatory Injection Wero [facility] Stro Work Phone: Hematology/Oncology Comment on [...] encounter procedure Hussein Ordonez MD Work Phone: [facility] Start: 10-23-2022 Radiation Oncology Note Hussein [...] End: 09-12-2022 Subsequent hospital visit by physician Karal Rueda [facility] Work Phone: Radiology Comment on above: [...] encounter procedure Rickie Agosto MD Work Phone: [facility] Comment on above: Prostate cancer (HCC ) (Primary Dx) Start: 08-07-2022 ambulatory HUSSEIN ORDONEZ Facility: [facility] Start: 08-07-2022 End: 08-07-2022 Subsequent hospital visit by physician [facility] Work Phone: RADIO [facility] Comment on above: Prostate cancer (HCC ) [C61] Start: 07-29-2022 End: 07-29-2022 ambulatory NORMA DAVIES Facility:[facility] Start: 07-29-2022 End: 07-29-2022 Patient encounter procedure Vazquez Ralphishnan DO Work Phone: [facility] Comment on above: Prostate cancer (HCC ) (Primary Dx); Benign prostatic hyperplasia with incomplete bladder emptying Start: 07-17-2022 ambulatory NORMA DAVIES Facil ity:[facility] Start: 07-14-2022 Refill Sorin rodriguez MD [...] Subsequent hospital visit by physician [facility] Work Phone: Molecular Imaging Comment on above: Prostate cancer (HCC ) [C61] Start: 06-09-2022 End: 06-09-2022 Subsequent hospital visit by physician Ct [facility] Radiology Comment on above: Prostate cancer (HCC ) [C61] Start: 06-09-2022 End: 06-09-2022 Subsequent hospital visit by physician [facility] Radiology Start: 05-21-2022 ambulatory Vazquez Faust n DO Work Phone: Urology Comment on above: Prostate Cancer for Sylvie Chiu Start: 05-19-2022 Telephone encounter Vazquez Carrizales saravanan DO Work Phone: Urology Comment on above: Results Start: 03-03-2022 End: 03-03-2022 Patient encounter procedure [facility]-Laboratory, Specimen Start: 02-28-2022 Refill Brandttimesperanza ovalle DO Work Phone: Urology Comment on above: Refill Request Start: 12-24-2021 End: 12-24-2021 Patient encounter procedure James Barnes ROGUER.AUTOMOTIVE ACCESSORY INSTALLER Work Phone: Orthopaedics Comment on above: 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 (Primary Dx) Start: 12-24-2021 End: 12-24-2021 Subsequent hospital visit by physician [facility] Shayla Mathews Work Phone: Radiology Comment on above: Pain [R52] Start: 08-15-[address] [facility] Procedures Date Procedure Procedure Detail [...] 07-20-2023 Radex spine lumbosac ral 2/3 views Hussien Ordonez MD Work Phone: Start: 04-10-2023 Radex [...] Adult depression scr eening assessment James Barnes ROGUER.AUTOMOTIVE ACCESSORY INSTALLER Work Phone: Start: 03-22-2010 Lipid 1996 panel - S olivia or Plasma Hussein Ordonez MD Work Phone: Plan of Treatment Date Care Activity Detail Author Start: 12-24-2026 Diabetes Screening Diabetes Screening [facility] Start: 09-25-2026 Diabetes Screening Diabetes Screening [facility] Start: 03-09-2026 DIABETES SCREEN DIABETES SCREEN [facility] Start: 03-09-2026 Diabetes Screening Diabetes Screening [facility] Start: 12-14-2025 DIABETES SCREEN DIABETES SCREEN [facility] Start: 06-26-2025 End: 06-26-2025 Patient encounter procedure Radiation Oncology Comment on above: 6 month follow up prostate Start: 06-23-2025 End: 06-23-2025 ambulatory 06/23/2025 7:15 AM EDT Results Only [facility] [address] [place] [address] LAB [facility] Comment on above: LAB Start: 05-29-2025 Influenza vaccination [facility] Start: 05-18-2025 End: 05-18-2025 Patient encounter procedure 05/18/2025 3:15 PM EDT OT/PT/Speech Visit [facility] [address] [place] [address] Asif Wharton, PT Pain to go away [facility] Comment on above: Pain [...] 8:20 AM EDT Office Visit Orthopaedics [address] [place] [address] [place] [address] [place] [address] Left wrist injection Orthopaedics Comment on above: Left wrist injection Start: 12-27-2024 End: 12-27-2024 Patient encounter procedure 12/27/2024 9:00 AM EDT Office Visit Rheumatology [address] [place] [address] [place] [address] [place] [address] annual Rheumatology Comment on above: annual Start: 12-23-2024 End: 12-23-2024 Patient encounter procedure 12/23/2024 9:00 AM EDT Office Visit Radiation Oncology [address] [place] [address] [place] [address] [place] [address] 6 month follow up prostate Radiation Oncology Comment on above: 6 month follow up prostate Start: 12-19-2024 End: 12-19-2024 ambulatory 12/19/2024 8:00 AM EDT Results Only [facility] [address] [place] [address] lab [facility] Comment on above: lab Start: 12-13-2024 BP Controlled (<130/80) BP Controlled (<130/80) [facility] in Start: 10-04-2024 DIABETES SCREEN DIABETES SCREEN [facility] Start: 09-28-2024 Advance Directive Discussion Advance Directive Discussion [facility] Start: 09-28-2024 Medicare Advantage Annual Wellness Visit Medicare Advantage Annual Wellness Visit [facility] Start: 09-27-2024 End: 09-27-2024 ambulatory 09/27/2024 6:00 PM EST Procedure [facility] [address] [place] [address] Hyperbaric Therapy [facility] Comment on above: Hyperbaric Therapy Start: 09-26-2024 End: 09-26-2024 ambulatory 09/26/2024 6:00 PM EST Procedure [facility] [address] [place] [address] Hyperbaric Therapy [facility] Comment on above: Hyperbaric Therapy Start: 09-23-2024 End: 09-23-2024 ambulatory 09/23/2024 6:00 PM EST Procedure [facility] [address] [place] [address] Hyperbaric Therapy [facility] Comment on above: Hyperbaric Therapy Start: 09-22-2024 End: 09-22-2024 ambulatory 09/22/2024 6:00 PM EST Procedure [facility] [address] [place] [address] Hyperbaric Therapy [facility] Comment on above: Hyperbaric Therapy Start: 09-20-2024 End: 09-20-2024 ambulatory 09/20/2024 6:00 PM EST Procedure [facility] [address] [place] [address] Hyperbaric Therapy [facility] Comment on above: Hyperbaric Therapy Start: 09-19-2024 End: 09-19-2024 ambulatory 09/19/2024 6:00 PM EST Procedure [facility] [address] [place] [address] Hyperbaric Therapy [facility] Comment on above: Hyperbaric Therapy Start: 09-16-2024 End: 09-16-2024 ambulatory 09/16/2024 6:00 PM EST Procedure [facility] [address] [place] [address] Hyperbaric Therapy [facility] Comment on above: Hyperbaric Therapy Start: 09-15-2024 End: 09-15-2024 ambulatory 09/15/2024 6:00 PM EST Procedure [facility] [address] [place] [address] Hyperbaric Therapy [facility] Comment on above: Hyperbaric Therapy Start: 09-14-2024 End: 09-14-2024 ambulatory 09/14/2024 6:00 PM EST Procedure [facility] [address] [place] [address] Hyperbaric Therapy [facility] Comment on above: Hyperbaric Therapy Start: 09-13-2024 End: 09-13-2024 ambulatory 09/13/2024 6:00 PM EST Procedure [facility] [address] [place] [address] Hyperbaric Therapy [facility] Comment on above: Hyperbaric Therapy Start: 09-12-2024 End: 09-12-2024 ambulatory 09/12/2024 6:00 PM EST Procedure [facility] [address] [place] [address] Hyperbaric Therapy [facility] Comment on above: Hyperbaric Therapy Start: 09-12-2024 End: 09-12-2024 Patient encounter procedure 09/12/2024 8:00 AM EST Office Visit Rheumatology [address] [place] [address] Francisco Davis, ROGUER.AUTOMOTIVE ACCESSORY INSTALLER [address] [place] [address] FOLLOW UP Rheumatology Comment on above: FOLLOW UP Start: 09-09-2024 End: 09-09-2024 ambulatory 09/09/2024 6:00 PM EST Procedure [facility] [address] [place] [address] Hyperbaric Therapy [facility] Comment on above: Hyperbaric Therapy Start: 09-08-2024 End: 09-08-2024 ambulatory 09/08/2024 6:00 PM EST Procedure [facility] [address] [place] [address] Hyperbaric Therapy [facility] Comment on above: Hyperbaric Therapy Start: 09-07-2024 End: 09-07-2024 ambulatory 09/07/2024 6:00 PM EST Procedure [facility] [address] [place] [address] Hyperbaric Therapy [facility] Comment on above: Hyperbaric Therapy Start: 09-06-2024 End: 09-06-2024 ambulatory 09/06/2024 6:00 PM EST Procedure [facility] [address] [place] [address] Hyperbaric Therapy [facility] Comment on above: Hyperbaric Therapy Start: 09-05-2024 End: 09-05-2024 ambulatory 09/05/2024 6:00 PM EST Procedure [facility] [address] [place] [address] Hyperbaric Therapy [facility] Comment on above: Hyperbaric Therapy Start: 09-02-2024 End: 09-02-2024 ambulatory 09/02/2024 6:00 PM EST Procedure [facility] [address] [place] [address] Hyperbaric Therapy [facility] Comment on above: Hyperbaric Therapy Start: 09-01-2024 End: 09-01-2024 ambulatory 09/01/2024 6:00 PM EST Procedure [facility] [address] [place] [address] Hyperbaric Therapy [facility] Comment on above: Hyperbaric Therapy Start: 08-31-2024 End: 08-31-2024 ambulatory 08/31/2024 6:00 PM EST Procedure [facility] [address] [place] [address] Hyperbaric Therapy [facility] Comment on above: Hyperbaric Therapy Start: 08-30-2024 End: 08-30-2024 ambulatory 08/30/2024 6:00 PM EST Procedure [facility] [address] [place] [address] Hyperbaric Therapy [facility] Comment on above: Hyperbaric Therapy Start: 08-29-2024 End: 08-29-2024 ambulatory 08/29/2024 6:00 PM EST Procedure [facility] [address] [place] [address] Hyperbaric Therapy [facility] Comment on above: Hyperbaric Therapy Start: 08-26-2024 End: 08-26-2024 ambulatory 08/26/2024 6:00 PM EST Procedure [facility] [address] [place] [address] Hyperbaric Therapy [facility] Comment on above: Hyperbaric Therapy Start: 08-24-2024 End: 08-24-2024 ambulatory 08/24/2024 6:00 PM EST Procedure [facility] [address] [place] [address] Hyperbaric Therapy [facility] Comment on above: Hyperbaric Therapy Start: 08-23-2024 End: 08-23-2024 ambulatory 08/23/2024 6:00 PM EST Procedure [facility] [address] [place] [address] Hyperbaric Therapy [facility] Comment on above: Hyperbaric Therapy Start: 08-22-2024 End: 08-22-2024 ambulatory 08/22/2024 6:00 PM EST Procedure [facility] [address] [place] [address] Hyperbaric Therapy [facility] Comment on above: Hyperbaric Therapy Start: 08-21-2024 End: 11-20-2024 Prostate specific Ag [Mass/volume] in Serum or Plasma PROSTATE-SPECIFIC ANTIGEN DIAGNOSTIC Lab Routine History of prostate cancer Expected: 08/21/2024 (Approximate), Expires: 11/20/2024 [facility] Work Phone: Comment on above: Expected: 08/21/2024 (Approximate), Expi res: 11/20/2024 Start: 08-19-2024 End: 08-19-2024 ambulatory 08/19/2024 6:00 PM EST Procedure [facility] [address] [place] [address] Hyperbaric Therapy [facility] Comment on above: Hyperbaric Therapy Start: 08-18-2024 End: 08-18-2024 ambulatory 08/18/2024 6:00 PM EST Procedure [facility] [address] [place] [address] Hyper[facility] Therapy [facility] Comment on above: Hyperbaric Therapy Start: 08-17-2024 End: 08-17-2024 ambulatory 08/17/2024 6:00 PM EST Procedure [facility] [address] [place] [address] Hyperbaric Therapy [facility] Comment on above: Hyperbaric Therapy Start: 08-16-2024 End: 08-16-2024 ambulatory 08/16/2024 6:00 PM EST Procedure [facility] [address] [place] [address] Hyperbaric Therapy [facility] Comment on above: Hyperbaric Therapy Start: 08-16-2024 End: 08-16-2024 Patient encounter procedure 08/16/2024 4:00 PM EST Office Visit Orthopaedics [address] [place] [address] [place] [address] [place] [address] right thumb injection, ok per MM [facility] Comment on above: right thumb injection, ok per MM Start: 08-15-2024 End: 08-15-2024 ambulatory 08/15/2024 6:00 PM EST Procedure [facility] [address] [place] [address] Hyperbaric Therapy [facility] Comment on above: Hyperbaric Therapy Start: 08-12-2024 End: 08-12-2024 ambulatory 08/12/2024 6:00 PM EST Procedure [facility] [address] [place] [address] Hyperbaric Therapy [facility] Comment on above: Hyperbaric Therapy Start: 08-12-2024 End: 08-12-2024 Patient encounter procedure 08/12/2024 10:50 AM EST Office Visit Urology [address] [place] [address] Selwyn Michelle MD [address] [place] [address] Six month follow up with PSA prior Urology Comment on above: Six month follow up with PSA prior Start: 08-11-2024 End: 08-11-2024 ambulatory 08/11/2024 6:00 PM EST Procedure [facility] [address] [place] [address] Hyperbaric Therapy [facility] Comment on above: Hyperbaric Therapy Start: 08-11-2024 End: 08-11-2024 Patient encounter procedure 08/11/2024 1:00 PM EST Office Visit Orthopaedics [address] [place] [address] Natan Alcazar, [address] [place] [address] Arthritis of carpometacarpal (CMC) joint of left thumb [M18.12] Orthopaedics Comment on above: Arthritis of carpometacarpal (CMC) joint of left thumb [M18.12] Start: 08-10-2024 End: 08-10-2024 ambulatory 08/10/2024 6:00 PM EST Procedure [facility] [address] [place] [address] Hyperbaric Therapy [facility] Comment on above: Hyperbaric Therapy Start: 08-09-2024 End: 08-09-2024 ambulatory 08/09/2024 6:00 PM EST Procedure [facility] [address] [place] [address] Hyperbaric Therapy [facility] Comment on above: Hyperbaric Therapy Start: 08-08-2024 End: 08-08-2024 ambulatory 08/08/2024 6:00 PM EST Procedure [facility] [address] [place] [address] Hyperbaric Therapy [facility] Comment on above: Hyperbaric Therapy Start: 08-05-2024 End: 08-05-2024 ambulatory 08/05/2024 6:00 PM EST Procedure [facility] [address] [place] [address] Hyperbaric Therapy [facility] Comment on above: Hyperbaric Therapy Start: 08-04-2024 End: 08-04-2024 ambulatory 08/04/2024 6:00 PM EST Procedure [facility] [address] [place] [address] Hyper[facility]ic Therapy [facility] Comment on above: Hyperbaric Therapy Start: 08-03-2024 End: 08-03-2024 ambulatory 08/03/2024 6:00 PM EST Procedure [facility] [address] [place] [address] Hyperbaric Therapy [facility] Comment on above: Hyperbaric Therapy Start: 08-02-2024 End: 08-02-2024 ambulatory 08/02/2024 6:00 PM EST Procedure [facility] [address] [place] [address] Hyperbaric Therapy [facility] Comment on above: Hyperbaric Therapy Start: 08-02-2024 End: 08-02-2024 Patient encounter procedure 08/02/2024 9:30 AM EST Office Visit Orthopaedics [address] [place] [address] Natan Alcazar, [address] [place] [address] Left Thumb CMC injection Orthopaedics Comment on above: Left Thumb CMC injection Start: 08-01-2024 End: 08-01-2024 ambulatory 08/01/2024 6:00 PM EST Procedure [facility] [address] [place] [address] Hyperbaric Therapy [facility] Comment on above: Hyperbaric Therapy Start: 07-29-2024 End: 07-29-2024 ambulatory 07/29/2024 6:00 PM EDT Procedure [facility] [address] [place] [address] Hyperbaric Therapy [facility] Comment on above: Hyperbaric Therapy Start: 07-28-2024 End: 07-28-2024 ambulatory 07/28/2024 6:00 PM EDT Procedure [facility] [address] [place] [address] Hyperbaric Therapy [facility] Comment on above: Hyperbaric Therapy Start: 07-27-2024 End: 07-27-2024 ambulatory 07/27/2024 6:00 PM EDT Procedure [facility] [address] [place] [address] Hyperbaric Therapy [facility] Comment on above: Hyperbaric Therapy Start: 07-26-2024 End: 07-26-2024 ambulatory 07/26/2024 6:00 PM EDT Procedure [facility] [address] [place] [address] Hyperbaric Therapy [facility] Comment on above: Hyperbaric Therapy Start: 07-25-2024 End: 07-25-2024 ambulatory 07/25/2024 6:00 PM EDT Procedure [facility] [address] [place] [address] Hyperbaric Therapy [facility] Comment on above: Hyperbaric Therapy Start: 07-22-2024 End: 07-22-2024 ambulatory 07/22/2024 6:00 PM EDT Procedure [facility] [address] [place] [address] Hyperbaric Therapy [facility] Comment on above: Hyperbaric Therapy Start: 07-21-2024 End: 07-21-2024 ambulatory 07/21/2024 6:00 PM EDT Procedure [facility] [address] [place] [address] Hyperbaric Therapy [facility] Comment on above: Hyperbaric Therapy Start: 07-20-2024 End: 07-20-2024 ambulatory 07/20/2024 6:00 PM EDT Procedure [facility] [address] [place] [address] Hyperbaric Therapy [facility] Comment on above: Hyperbaric Therapy Start: 07-19-2024 End: 07-19-2024 ambulatory 07/19/2024 6:00 PM EDT Procedure [facility] [address] [place] [address] Hyperbar[facility] Therapy [facility] Comment on above: Hyperbaric Therapy Start: 07-18-2024 End: 07-18-2024 ambulatory 07/18/2024 6:00 PM EDT Procedure [facility] [address] [place] [address] Hyper[facility] Therapy [facility] Comment on above: Hyperbaric Therapy Start: 07-15-2024 End: 07-15-2024 ambulatory 07/15/2024 6:00 PM EDT Procedure [facility] [address] [place] [address] Hyperbaric Therapy [facility] Comment on above: Hyperbaric Therapy Start: 07-14-2024 End: 07-14-2024 ambulatory 07/14/2024 6:00 PM EDT Procedure [facility] [address] [place] [address] Hyperbaric Therapy [facility] Comment on above: Hyperbaric Therapy Start: 07-05-2024 End: 07-05-2024 Patient encounter procedure 07/05/2024 10:45 AM EDT Office Visit Orthopaedics [address] [address] Lee Wayne MD [address] [place] [address] Post op checkup and cortisone injection left wrist/hand Orthopaedics Comment on above: Post op checkup and cortisone injection left wrist/hand Start: 06-27-2024 End: 06-27-2024 Patient encounter procedure 06/27/2024 8:00 AM EDT Office Visit Rheumatology [address] [place] [address] Francisco Davis APRN.AUTOMOTIVE ACCESSORY INSTALLER [address] [place] [address] FOLLOW UP Rheumatology Comment on above: FOLLOW UP Start: 06-24-2024 End: 06-24-2024 Patient encounter procedure 06/24/2024 11:00 AM EDT Office Visit Radiation Oncology [address] [place] [address] [place] [address] [place] [address] 6 month follow up prostate [facility] Comment on above: 6 month follow up prostate Start: 06-17-2024 End: 06-17-2024 Patient encounter procedure 06/17/2024 9:00 AM EDT Office Visit Radiation Oncology [address] [place] [address] [place] [address] [place] [address] 6 month follow up prostate [facility] Oncology Comment on above: 6 month follow up prostate Start: 05-29-2024 Covid-19 Vaccine ( season) Covid-19 Vaccine ( season) [facility] Start: 05-29-2024 Covid-19 Vaccine ( season) Covid-19 Vaccine () [facility] Start: 05-29-2024 Influenza vaccination [facility] Start: 05-24-2024 End: 05-24-2024 Patient encounter procedure 05/24/2024 3:45 PM EDT Office Visit Orthopaedics [address] [address] Lee Wayne MD [address] [place] [address] post op left CTR Orthopaedics Comment on above: post op left CTR Start: 04-26-2024 End: 04-26-2024 Patient encounter procedure 04/26/2024 11:45 AM EDT Office Visit Orthopaedics [address] [address] Afsaneh Hayes PA-C [address] [place] [address] post op left CTR Orthopaedics Comment on above: post op left CTR Start: 04-15-2024 End: 04-15-2024 Admission to same day surgery center 04/15/2024 12:08 PM EDT - 04/15/2024 1:01 PM EDT Surgery [facility] [address] [place] [address] Lee Wayne MD [address] [place] [address] DECOMPRESSION NERVE MEDIAN CARPAL TUNNEL [facility] Comment on above: DECOMPRESSION NERVE MEDIAN CARPAL TUNNEL Start: 04-15-2024 End: 04-15-2024 Neuroplasty &/transpos median nrv carpal tunne DECOMPRESSION NERVE MEDIAN CARPAL TUNNEL Carpal tunnel syndrome on left 04/15/2024 12:08 PM EDT ME OR Start: 04-15-2024 Subsequent hospital visit by physician 04/15/2024 12:08 PM EDT Hospital Encounter [facility] [address] [place] [address] Lee Wayne MD [address] [place] [address] Carpal tunnel syndrome on left [G56.02] [facility] Comment on above: Carpal tunnel syndrome on left [G56.02] Start: 04-01-2024 End: 04-01-2024 Patient encounter procedure Radiology Comment on above: XR WRIST GENERAL 3V PA/LAT/OBL LEFT left wrist/hand pain , xrays scheduled Start: 03-12-2024 BP CONTROLLED (<130/80) BP CONTROLLED (<130/80) [facility] in Start: 02-19-2024 End: 02-19-2024 Patient encounter procedure Urology Comment on above: Cystoscopy Cystoscopy - LM for patient to arrive at 1430 & instructions given Start: 02-18-2024 End: 02-18-2024 Patient encounter procedure 02/18/2024 9:00 AM EDT Office Visit Rheumatology [address] [place] [address] Francisco Davis, RAJENDRA.AUTOMOTIVE ACCESSORY INSTALLER [address] [place] [address] Pain in joint, multiple sites to discuss other meds besides PLQ Rheumatology Comment on above: Pain in joint, multiple sites to discuss other meds besides PLQ Start: 02-01-2024 End: 02-01-2024 Patient encounter procedure 02/01/2024 9:15 AM EDT Appointment Radiology [address] [place] [address] US HAND/WRIST SYNOVIAL SCREEN RT+LT. Radiology Comment on above: US HAND/WRIST SYNOVIAL SCREEN RT+LT. Start: 01-12-2024 End: 04-12-2024 Bacteria identified in Urine by Culture [facility] Work Phone: Comment on above: Expected: 01/12/2024, Expires: 4 Start: 12-14-2023 End: 03-14-2024 C reactive protein [Mass/volume] in Serum or Plasma [facility] Work Phone: Comment on above: Expected: 12/14/2023, Expires: 4 Start: 12-14-2023 End: 03-14-2024 Cyclic citrullinated peptide IgG Ab [Units/volume] in Serum or Plasma [facility] Work Phone: Comment on above: Expected: 12/14/2023, Expires: 4 Start: 12-14-2023 End: 03-14-2024 Rheumatoid factor [Units/volume] in Serum or Plasma [facility] Work Phone: Comment on above: Expected: 12/14/2023, Expires: 4 Start: 09-28-2023 Advance Directive Discussion Advance Directive Discussion [facility] Start: 09-28-2023 Behavioral Health Screening Behavioral Health Screening [facility] Start: 09-28-2023 Depression Assessment Depression Assessment [facility] Start: 07-29-2023 BP CONTROLLED (<130/80) BP CONTROLLED (<130/80) [facility] Start: 05-29-2023 Covid-19 Vaccine ( season) Covid-19 Vaccine () [facility] Start: 05-29-2023 Influenza vaccination [facility] Start: 03-11-2023 End: 05-11-2023 CBC W Auto Differential panel - Blood CBC + DIFF Lab Routine Prostate cancer (HCC) Expected: 03/11/2023, Expires: 05/11/2023 [facility] Work Phone: Comment on above: Expected: 03/11/2023, Expires: 3 Start: 03-11-2023 End: 05-11-2023 Comprehensive metabolic 2000 panel - Serum or Plasma COMP METABOLIC PANEL Lab Routine Prostate cancer ([facility]) Expected: 03/11/2023, Expires: 05/11/2023 [facility] Work Phone: Comment on above: Expected: 03/11/2023, Expires: 3 Start: 11-14-2022 End: 01-14-2023 Testosterone [Mass/volume] in Serum or Plasma TESTOSTERONE TOTAL Lab Routine Prostate cancer ([facility]) Expected: 11/14/2022, Expires: 01/14/2023 [facility] Work Phone: Comment on above: Expected: 11/14/2022, Expires: 3 Start: 09-28-2022 ADVANCE DIRECTIVE DISCUSSION ADVANCE DIRECTIVE DISCUSSION [facility] Start: 09-28-2022 DEPRESSION ASSESSMENT DEPRESSION ASSESSMENT [facility] Start: 05-29-2022 Influenza vaccination [facility] Start: 05-19-2022 End: 07-19-2022 CREATININE BLD CREATININE BLD Lab Routine Prostate cancer ([facility]) Expected: 05/19/2022, Expires: 07/19/2022 [facility] Work Phone: Comment on above: Expected: 05/19/2022, Expires: 2 Start: 09-28-2021 ADVANCE DIRECTIVE DISCUSSION ADVANCE DIRECTIVE DISCUSSION [facility] Start: 09-28-2021 DEPRESSION ASSESSMENT DEPRESSION ASSESSMENT [facility] Start: 05-29-2021 Influenza vaccination INFLUENZA (#1) [facility] Start: 04-29-2017 Adult depression screening assessment DEPRESSION SCREENING [facility] Start: 2017 Pneumococcal Vaccine: 65+ (2 - PCV) Pneumococcal Vaccine: 65+ (2 - PCV) [facility] Start: 2017 Pneumococcal Vaccine: 65+ (2 of 2 - PCV) Pneumococcal Vaccine: 65+ (2 of 2 - PCV) [facility] Start: 2017 PNEUMOCOCCAL: 65+ (1 - PCV) PNEUMOCOCCAL: 65+ (1 - PCV) [facility] Start: 2017 PNEUMOCOCCAL: 65+ (2 - PCV) PNEUMOCOCCAL: 65+ (2 - PCV) [facility] Start: 2017 PNEUMOVAX AGE 65 AND OVER WITH 5YR LOOKBACK (#1) PNEUMOVAX AGE 65 AND OVER WITH 5YR LOOKBACK (#1) [facility] Start: 03-22-2015 Lipid 1996 panel - Serum or Plasma Lipid Screening [facility] Start: 03-22-2015 Lipid panel Lipid Screening [facility] Start: 03-22-2015 LIPID SCREEN LIPID SCREEN [facility] Start: 2012 RSV Vaccine (1 - 1-dose 60+ series) RSV Vaccine (1 - 1-dose 60+ series) [facility] Start: 2012 RSV Vaccine (1 - Risk 60-74 years 1-dose series) RSV Vaccine (1 - Risk 60-74 years 1-dose series) [facility] Start: 11-17-2007 Pneumococcal Vaccine: 50+ (2 of 2 - PCV) Pneumococcal Vaccine: 50+ (2 of 2 - PCV) [facility] Start: 11-17-2007 PNEUMOCOCCAL: 65+ (2 - PCV) PNEUMOCOCCAL: 65+ (2 - PCV) [facility] Start: 10-04-2006 Urine microalbumin profile [facility] Start: 2002 SHINGRIX VACCINE (1 of 2) SHINGRIX VACCINE (1 of 2) [facility] Start: 1997 COLOGUARD (FIT-DNA) COLOGUARD (FIT-DNA) [facility] Start: 1997 Colonoscopy COLONOSCOPY [facility] Start: 1997 COLORECTAL CANCER SCREENING COLORECTAL CANCER SCREENING [facility] Start: [address] COLONOGRAPHY [facility] Start: 1997 FECAL OCCULT BLOOD FECAL OCCULT BLOOD [facility] Start: 1997 Screening for malignant neoplasm of colon [facility] Start: 1997 SIGMOIDOSCOPY SIGMOIDOSCOPY [facility] Start: 1970 ANNUAL PCP TEAM CHRONIC DISEASE VISIT ANNUAL PCP TEAM CHRONIC DISEASE VISIT [facility] Start: 1970 Anxiety Screening Anxiety Screening [facility] Start: 1970 BP CONTROLLED (<130/80) BP CONTROLLED (<130/80) [facility] Start: 1970 Depression Screening Depression Screening [facility] Start: 1970 HEPATITIS C SCREENING HEPATITIS C SCREENING [facility] Start: 1970 Hepatitis C screening Hepatitis C Screening [facility] Start: 1957 COVID-19 VACCINE (#1) COVID-19 VACCINE (#1) [facility] Start: 1957 COVID-19 VACCINE (1) COVID-19 VACCINE (1) [facility] Start: 1952 COVID-19 VACCINE (#1) COVID-19 VACCINE (#1) [facility] Start: 1952 ABDOMINAL AORTIC ANEURYSM SCREENING ABDOMINAL AORTIC ANEURYSM SCREENING [facility] Start: 1952 Abdominal aortic aneurysm screening Abdominal Aortic Aneurysm Screening [facility] End: 06-18-2023 Bone &/joint imaging whole body NM BONE WHOLE BODY Radiology Routine Prostate cancer (HCC) 1 Occurrences starting 05/19/2022 until 06/18/2023 [facility] Work Phone: Comment on above: 1 Occurrences starting 05/19/2022 until 06/18/2023 Clostridioides diffi cile toxin genes [Presence] in Stool by JENNYFER with probe detection C. DIFFICILE PCR Lab Routine Diarrhea, unspecified type Ordered: 03/12/2023 [facility] Work Phone: Comment on above: Ordered: 03/12/2023 End: 06-18-2023 Ct pelvis w/contrast material CT PELVIS W IVCON Radiology Routine Prostate cancer (HCC) 1 Occurrences starting 05/19/2022 until 06/18/2023 [facility] Work Phone: Comment on above: 1 Occurrences starting 05/19/2022 until 06/18/2023 Hemoglobin.gastroint michael nal.lower [Presence] in Stool by Immunoassay FECAL OCCULT BLOOD TEST Lab Routine Diarrhea, unspecified type Ordered: 03/12/2023 [facility] Work Phone: Comment on above: Ordered: 03/12/2023 End: 01-15-2025 MR Pelvis WO and W contrast IV MRI PELVIS WO/W IVCON Radiology Routine Bladder neck obstruction 1 Occurrences starting 12/17/2023 until 01/15/2025 [facility] Work Phone: Comment on above: 1 Occurrences starting 12/17/2023 until 01/15/2025 End: 10-12-2023 Mri any jt upper extremity w/o contrast matrl MRI SHOULDER WO IVCON RT Radiology Routine Dysfunction of right rotator cuff 1 Occurrences starting 09/12/2022 until 10/12/2023 [facility] Work Phone: Comment on above: 1 Occurrences starting 09/12/2022 until 10/12/2023 End: 07-19-2023 Mri pelvis w/o & w/contrast material MRI PROSTATE WO/W IVCON Radiology Routine Prostate cancer (HCC) 1 Occurrences starting 06/19/2022 until 07/19/2023 [facility] Work Phone: Comment on above: 1 Occurrences starting 06/19/2022 until 07/19/2023 End: 11-14-2023 Prostate specific Ag [Mass/volume] in Serum or Plasma PSA/PROSTSPECAG DIAG Lab Routine Prostate cancer (HCC) Every 6 months for 20 Occurrences starting 11/14/2022 until 11/14/2023 [facility] Work Phone: Comment on above: Every 6 months for 20 Occurrences starti ng 11/14/2022 until 11/14/2023 End: 01-13-2024 Prostate specific Ag [Mass/volume] in Serum or Plasma PSA/PROSTSPECAG DIAG Lab Routine Prostate cancer (HCC) Every 6 months for 20 Occurrences starting 01/12/2023 until 01/13/2024 [facility] Work Phone: Comment on above: Every 6 months for 20 Occurrences starti ng 01/12/2023 until 01/13/2024 End: 06-16-2024 Prostate specific Ag [Mass/volume] in Serum or Plasma PSA/PROSTSPECAG DIAG Lab Routine Encounter for follow-up surveillance of prostate cancer Every 6 months for 20 Occurrences starting 06/16/2023 until 06/16/2024 [facility] Work Phone: Comment on above: Every 6 months for 20 Occurrences starti ng 06/16/2023 until 06/16/2024 End: 12-16-2024 Prostate specific Ag [Mass/volume] in Serum or Plasma PSA/PROSTSPECAG DIAG Lab Routine Prostate cancer (HCC) Bladder neck obstruction Every 6 months for 20 Occurrences starting 12/17/2023 until 12/16/2024 [facility] Work Phone: Comment on above: Every 6 months for 20 Occurrences starti ng 12/17/2023 until 12/16/2024 End: 12-19-2025 Prostate specific Ag [Mass/volume] in Serum or Plasma PROSTATE-SPECIFIC ANTIGEN DIAGNOSTIC Lab Routine Encounter for follow-up surveillance of prostate cancer Every 6 months for 20 Occurrences starting 12/19/2024 until 12/19/2025 [facility] Work Phone: Comment on above: Every 6 months for 20 Occurrences starti ng 12/19/2024 until 12/19/2025 Prostate specific Ag [Mass/volume] in Serum or Plasma PROSTATE-SPECIFIC ANTIGEN DIAGNOSTIC Lab Routine Encounter for follow-up surveillance of prostate cancer 12/19/2024 9:23 AM EDT [facility] End: 12-23-2025 Prostate specific Ag [Mass/volume] in Serum or Plasma PROSTATE-SPECIFIC ANTIGEN DIAGNOSTIC Lab Routine Encounter for follow-up surveillance of prostate cancer Every 6 months for 20 Occurrences starting 12/23/2024 until 12/23/2025 [facility] Work Phone: Comment on above: Every 6 months for 20 Occurrences starti ng 12/23/2024 until 12/23/2025 End: 01-13-2025 US Upper extremity - left US HAND/WRIST SYNOVIAL SCREEN LEFT Radiology Routine Pain in joint, multiple sites 1 Occurrences starting 12/14/2023 until 01/13/2025 [facility] Work Phone: Comment on above: 1 Occurrences starting 12/14/2023 until 01/13/2025 End: 01-13-2025 US Upper extremity - right US HAND/WRIST SYNOVIAL SCREEN RIGHT Radiology Routine Pain in joint, multiple sites 1 Occurrences starting 12/14/2023 until 01/13/2025 [facility] Work Phone: Comment on above: 1 Occurrences starting 12/14/2023 until 01/13/2025 End: 09-01-2025 XR Hand - right PA and Lateral and Oblique XR HAND GENERAL 3V PA/LAT/OBL RIGHT Radiology Routine Right hand pain 1 Occurrences starting 08/02/2024 until 09/01/2025 [facility] Work Phone: Comment on above: 1 Occurrences starting 08/02/2024 until 09/01/2025 XR Hand - right PA a nd Lateral and Oblique XR HAND GENERAL 3V PA/LAT/OBL RIGHT Radiology Routine Right hand pain 08/02/2024 10:10 AM [facility] End: 02-22-2024 XR HAND GENERAL 3V PA/LAT/OBL LEFT XR HAND GENERAL 3V PA/LAT/OBL LEFT Radiology Routine Left hand pain 1 Occurrences starting 01/23/2023 until 02/22/2024 [facility] Work Phone: Comment on above: 1 Occurrences starting 01/23/2023 until 02/22/2024 XR Knee - left 4 Views XR KNEE G ENERAL 4V AP BOTH/PA BOTH/LAT/MERC LEFT Radiology Routine Left knee pain, unspecified chronicity 03/03/2025 8:09 AM EDT [facility] Work Phone: End: 03-29-2026 XR Knee - left 4 Views XR KNEE GENERAL 4V AP BOTH/PA BOTH/LAT/MERC LEFT Radiology Routine Left knee pain, unspecified chronicity 1 Occurrences starting 02/27/2025 until 03/29/2026 [facility] Work Phone: Comment on above: 1 Occurrences starting 02/27/2025 until 03/29/2026 End: 05-18-2026 XR Lower extremity - bilateral AP W standing XR LEG FRONTAL HIP TO ANKLE MECHANICAL AXIS Radiology Routine Left hip pain 1 Occurrences starting 04/18/2025 until 05/18/2026 [facility] Work Phone: Comment on above: 1 Occurrences starting 04/18/2025 until 05/18/2026 XR Lower extremity - bilateral AP W standing XR LEG FRONTAL HIP TO ANKLE MECHANICAL AXIS Radiology Routine Left hip pain 04/21/2025 9:30 AM EDT [facility] Work Phone: End: 05-18-2026 XR Pelvis and Hip - left AP and Lateral frog XR HIP GENERAL 3V PELV/AP/LAT LEFT Radiology Routine Left hip pain 1 Occurrences starting 04/18/2025 until 05/18/2026 [facility] Comment on above: 1 Occurrences starting 04/18/2025 until 05/18/2026 XR Pelvis and Hip - left AP and Lateral frog XR HIP GENERAL 3V PELV/AP/LAT LEFT Radiology Routine Left hip pain 04/21/2025 9:30 AM EDT [facility] End: 04-19-2025 XR Wrist - left PA and Lateral and Oblique XR WRIST GENERAL 3V PA/LAT/OBL LEFT Radiology Routine Pain 1 Occurrences starting 03/20/2024 until 04/19/2025 [facility] Work Phone: Comment on above: 1 Occurrences starting 03/20/2024 until 04/19/2025 [facility] Immunizations Immunization Date Immunization Notes Care Provider Shira [facility] 06-30-2018 influenza, high dose seasonal, preservative-free James Barnes APRN.AUTOMOTIVE ACCESSORY INSTALLER Work Phone: [facility] 06-30-2018 influenza virus vacc ine, unspecified formulation Hussein Ordonez MD Work Phone: [facility] 06-14-2009 influenza virus vacc ine, unspecified formulation James Barnes APRN.AUTOMOTIVE ACCESSORY INSTALLER Work Phone: [facility] 11-17-2006 influenza virus vacc ine, unspecified formulation James Barnes ROGUER.AUTOMOTIVE ACCESSORY INSTALLER Work Phone: [facility] 11-17-2006 pneumococcal polysaccharide vaccine, 23 valent James Barnes ROGUER.AUTOMOTIVE ACCESSORY INSTALLER Work Phone: [facility] 10-03-2006 tetanus and diphther ia toxoids, not adsorbed, for adult use James Barnes ROGUER.AUTOMOTIVE ACCESSORY INSTALLER Work Phone: [facility] Payers Date Payer Category Payer Self-pay [id number] 2024 Medicare (Managed Care) HUMANA M EDICARE [id number] 2012 Medicare HUMANA MEDICARE HUMANA MEDICARE PP [id number] 2012-Present [phone] [id number] 2012 Medicare [id number] 2012 Private Health Insurance [id number] Medicare [id number] Unknown [id number] Social History Date Type Detail Facility Start: 05-08-2022 End: 08-02-2024 Tobacco smoking status NHIS Ex-smoker [facility] Work Phone: History of tobacco use Cigarette Smoker C [facility] Start: 11-21-2021 End: 04-21-2025 Alcohol intake Current drinker of alcohol (finding) [facility] Start: 11-14-2015 End: 05-08-2022 Tobacco Comment quit over 35 yrs ago [facility] Start: 1950 Sex Assigned At Male C [facility] Start: 12-14-2021 End: 08-11-2022 Exposure to SARS-CoV-2 (event) Not sure [facility] Start: 02-26-2021 Tobacco smoking stat us ORIS Unknown if ever smoked [facility] History of tobacco use Current smoker [place] Start: 05-08-2022 End: 01-30-2023 Cigarettes smoked current (pack per day) - Reported 1 [facility] Start: 05-08-2022 End: 08-02-2024 Tobacco use and exposure Smokeless tobacco non-user [facility] Start: 01-30-2023 End: 04-10-2023 Tobacco use panel [facility] Adult Depression Screening Assessment 2 [facility] Start: 11-25-2021 Gender identity Identifies as male gender (finding) [facility] Start: 11-25-2021 Sexual orientation Heterosexual (fin ding) [facility] Start: 02-26-2021 [facility] Medical Equipment Procedure Code Equipment Code Equipment Origin al Text Equipment Identifier Dates Cement Simplex P Bone Radiopaque Full Dose Sterile - [id number] Start: 06-30-2018 Comment on above: Description: Kailash Simplex P Bone Cement Full Dose Component Triathlon 40mm X3 11mm Patellar Asymmetric Knee - [id number] Start: 06-30-2018 Comment on above: Description: Walnut Triathlon X3 Asymmetric Patella, A40, 11mm Insert Triathlon 7 X3 9mm Tibial Cruciate Retaining Knee - [id number] Start: 06-30-2018 Comment on above: Description: Walnut Triathlon X3 Tibial Bearing Insert-CR, 7, 9mm Component Triathlon 7 Femoral Cruciate Retain Cemented Knee Right - [id number] Start: 06-30-2018 Comment on above: Description: Kailash Triathlon Cruciate Retaining Femoral, #7, RT, CR Baseplate Triathlon 7 Tibial Primary Cement Knee - [id number] Start: 06-30-2018 Comment on above: Description: Walnut Triathlon Primary Tibial Baseplate, #7 Functional Status Date Assessment Result Facility 07-01-2018 Are you deaf, or do you have serious difficulty hearing No 07/01/2018 3:22 PM EDT Donya Davis RN No [facility] 07-01-2018 Are you blind, or do you have serious difficulty seeing, even when wearing glasses No 07/01/2018 3:22 PM EDT Donya Davis RN No [facility] 07-01-2018 Do you have serious difficulty walking or climbing stairs No 07/01/2018 3:22 PM EDT Donya Davis RN [facility] 07-01-2018 Do you have difficul ty dressing or bathing No 07/01/2018 3:22 PM EDT Donya Davis RN [facility] 07-01-2018 Because of a physica l, mental, or emotional condition, do you have difficulty doing errands alone such as visiting a physician's office or shopping No 07/01/2018 3:22 PM EDDonya Cruz RN [facility] Mental Status Date Assessment Result Facility 07-01-2018 Because of a physica l, mental, or emotional condition, do you have serious difficulty concentrating, remembering, or making decisions No 07/01/2018 3:22 PM EDT Donya Davis RN [facility] Clinical Notes 06-08-2018 to 05-03-2025 Mayra Buenrostro PA-C - 04/21/2025 10:00 AM Caitlin Horton RT(Eyal) - 04/21/2025 9:00 AM EDT Note Date & Type Note Facility 05-03-2025 Note HNO ID: [id number] Author: ASIF WHARTON PT Service: ? Author [...] increase T-score by a minimum 5 points. Cooper in home exercise program. Patient will decrease [...] Planned: 12 Planned Treatment Interventions: Therapeutic exercise (63064), Neuromuscular re-education (23836), Therapeutic activities (63575), Manual therapy (85208), Self-chcf management (77303), Patient/Family/Caregiver Education, General Conditioning PLAN FOR NEXT [...] township, questioning if bottoming out on the director critical care could have done this. Patient Goals: Eliminate [...] Relevant Surgical Conditions: (more content not included)... [facility] 04-21-2025 History of Present illness Narrative Images from the original note were not included. CONSULT ORTHOPAEDIC: HIP PRIMARY CARE PHYSICIAN: Norma Davies APRN.AUTOMOTIVE ACCESSORY INSTALLER REFERRING PROVIDER: No referring provider defined for [...] which included preparing to see the patient, [id number] patient care, completing clinical documentation, obtaining and/or reviewing separately obtained history, performing a medically appropriate examination, counseling and educating the patient/family/caregiver, ordering medications, tests, or procedures, independently interpreting results (not separately reported), communicating results to the patient/family/caregiver, and care coordination (not separately reported). SIGNATURE: Mayra Buenrostro PA-C PATIENT NAME: Sylvie Chiu DATE: April 21, 2025 TIME: 7:24 AM documented in this encounter [facility] 04-21-2025 Note HNO ID: [id number] Author: MAYRA BUENROSTRO PA-C Service: ? Author Type: Physician Hospital Coordinator Type: Progress Notes Filed: 04/21/2025 12:55 Note Text: CONSULT ORTHOPAEDIC: HIP PRIMARY CARE PHYSICIAN: Norma Davies APRN.AUTOMOTIVE ACCESSORY INSTALLER REFERRING PROVIDER: No referring provider defined for [...] Idiopathic Peripheral Neuropathy (more content not included)... [facility] 04-21-2025 History of Present illness Narrative Radiology [...] PATIENT PRESENTS WITH AN IMPLANTABLE OR ATTACHED SENIOR ORACLE SOA DEVELOPER: No RADIOLOGY DEPARTMENT: General X-ray: Exam(s) Completed: Pelvis X-Ray: Pelvis with Hip Left Lower Extremity X-Ray(s): Leg Length PERIPHERAL IV DATA: Not applicable SIGNED BY: PHAN Rodrigues) April 21, 2025 9:31 AM documented in this encounter [facility] 04-21-2025 Note HNO ID: [id number] Author: CAITLIN HOROWITZ RT(Eyal) Service: ? 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 Author Type: Physician Hospital Coordinator Type: Progress Notes Filed: 03/03/2025 08:40 Note [...] no difficulty ambulating i (more content not included)...[facility]06-06-2025 History of Present illness Narrative* Selwyn Leiva [...] supply patient with Full face mask, Santana 2d2c VIP 7600. 1 0 gabapentin (NEURONTIN) 100 [...] these instructions. Informed Consent Consent Obtained: Verbal Ilfeld Protocol A moment to CARE was completed. [...] appointment. Selwyn Leiva PA-C documented in this encounter[facility] History of Present illness Narrative* Amisha Green [...] PATIENT PRESENTS WITH AN IMPLANTABLE OR ATTACHED SENIOR ORACLE SOA DEVELOPER: No RADIOLOGY DEPARTMENT: General X-ray: Exam(s) Completed: Lower Extremity X- Ray(s): Knee, AP / Lat / Tunne / Merchant Left and Wt. Bearing PERIPHERAL IV DATA: Not applicable SIGNED BY: Geno Christina March 03, 2025 8:09 AM documented in this encounterSum[facility]06-06-2025 NoteHNO ID: [id number] Author: AMISHA GREEN Tech Service: ? Author Type: Export Manager Type: Progress Notes Filed: 03/03/2025 08:09 [...] PATIENT PRESENTS WITH AN IMPLANTABLE OR ATTACHED SENIOR ORACLE SOA DEVELOPER: No RADIOLOGY DEPARTMENT: General X-ray: Exam(s) Completed: Lower Extremity X-Ray(s): Knee, AP / Lat / Tunne / Merchant Left and Wt. Bearing PERIPHERAL IV DATA: Not applicable SIGNED BY: Geno Christina March 03, 2025 8:09 AMC[facility] [id number] Instructions* Patient Instructions * Natan Alcazar, - [...] our office a call. documented in this encounterSum[facility]06-[facility]-2025 History of Present illness Narrative* Natan Alcazar [...] these instructions. Informed Consent Consent Obtained: Verbal Ilfeld Protocol A moment to CARE was completed. [...] Physician Medical Decision Making documented in this encounterSumma Health [facility]06-05-2025 NoteHNO ID: [id number] Author: NATAN ALCAZAR DO Service: ? Author [...] these instructions. Informed Consent Consent Obtained: Verbal Ilfeld Protocol A moment to CARE was completed. [...] Alcazar DO Sports Medicine Physician Medical Decision MakingUk Healthcare03-28-2025 NoteHNO ID: [id number] Author: ROS CHENG RN Service: ? Author Type: Registered Nurse Type: Progress Notes Filed: 12/23/2024 16:11 Note Text: Radiation Therapy - Nursing Note (Follow-up) PATIENT NAME: Sylvie Chiu PATIENT December 23, 2024 [facility] FACILITY/LOCATION: [place] Reason for visit: Follow up. Subjective Data The hyperbaric that I did has helped me. Minimal burning with urination noted and the past 2 weeks no bowel leakage and BM 2 a day Additional Data Do you want to see a Art Preparator? No Difficulty performing or completing routine daily [...] 1-2 a day SIGNED by: Ros Cheng [facility]NU[facility]03-28-2025 History of Present illness Narrative* Ros Cheng RN - 12/23/2024 9:51 AM EDT Images from the original note were not included. Radiation Therapy - Nursing Note (Follow-up) PATIENT NAME: Sylvie Chiu PATIENT December 23, 2024 [facility] FACILITY[facility]LOCATION: [place] Reason for visit: Follow up. Subjective Data The hyperbaric that I did has helped me. Minimal burning with urination noted and the past 2 weeks no bowel leakage and BM 2 a day Additional Data Do you want to see a Art Preparator? No Difficulty performing or completing routine daily [...] old man with high-intermediate risk prostate cancer, [id number], GG2, clinical Stage IIB, iPSA 5.5 [Samantha [...] MANJU. Prostate biopsy on 05/08/22 showed adenocarcinoma, [place] 3+4=7 (1 core), Samantha 3+3=6 (9 cores) [...] stools. Colonoscopy on 01/27/24 ([facility]) showed non-bleeding diverticula in the [...] with Full face mask, Santana [place] VIP 1830. REVIEW OF SYSTEMS: He notes energy is [...] old man with high-intermediate risk prostate cancer, [id number], GG2, clinical Stage IIB, iPSA 5.5 [Samantha 3+4=7 (1 core), [place] 3+3=6 (9 cores) (10/13 cores+); prostate MRI- [...] MD Doron Hernadez MD documented in this encounterSumma Health [facility]03-28-2025 NoteHNO ID: [id number] Author: HUSSEIN ORDONEZ MD Service: ? Author Type: Physician Type: Progress Notes Filed: 12/23/2024 16:11 Note Text: Radiation Oncology - Follow Up Note PATIENT NAME: Sylvie Chiu PATIENT DIAGNOSIS: 74 year old man with high-intermediate risk prostate cancer, [id number], GG2, clinical Stage IIB, iPSA 5.5 [Samantha [...] urgent stools. Colonoscopy on 01/27/24 ([facility]) showed non-bleeding diverticula in the sigmoid [...] Please supply patient with Full face mask, SkillPixels VIP 3620. REVIEW OF SYSTEMS: He notes energy is [...] old man with high-intermediate risk prostate cancer, [id number], (more content not included)...[facility]03-24-2025 Telephone encounter Note* Telephone Encounter - Rohini Saab RN - 12/19/2024 8:51 AM EDT Message left on spouse's phone that PSA order has been entered. [facility]03-24-2025 Miscellaneous Notes* Telephone Encounter - Rohini Saab RN - 12/19/2024 8:51 AM EDT Message left on spouse's phone that PSA order has been entered. documented in this encounterSumma Health [facility] Campus11-19-2024 Instructions* Patient Instructions* Natan Alcazar DO - [...] our office a call. documented in this encounterSumma Health [facility]11-19-2024 History of Present illness Narrative* Natan Alcazar [...] results and radiologist's interpretation, available in the [facility] health record. Images were reviewed with [...] thumb CMC Informed Consent Consent Obtained: Verbal Ilfeld Protocol A moment to CARE was completed. [...] DO Sports Medicine Physician documented in this encounterSumma Health [facility] Campus11-19-2024 NoteHNO ID: [id number] Author: NATAN ALCAZAR DO Service: ? Author Type: Physician Type: Progress Notes Filed: 08/16/2024 16:25 Note Text: CHIEF COMPLAINT: Patient presents with: Right Thumb - Established Patient, Pain, Injections PAIN EVALUATION 08/15/2024 8908 08/16/2024 1601 Pain Level: 5 6 Pain [...] results and radiologist's interpretation, available in the [facility] health record. Images were reviewed with [...] thumb CMC Informed Consent Consent Obtained: Verbal Ilfeld Protocol A moment to CARE was completed. [...] Electronically Signed: Natan Alcazar DO Sports Medicine PhysicianUk Healthcare11-05-2024 History of Present illness Narrative* Avelina Disla [...] PATIENT PRESENTS WITH AN IMPLANTABLE OR ATTACHED SENIOR ORACLE SOA DEVELOPER: No RADIOLOGY DEPARTMENT: General X-ray: Exam(s) Completed: Upper Extremity X- Ray(s): Hand, right PERIPHERAL IV DATA: Not applicable SIGNED BY: RT Fany(Eyal) August 02, 2024 10:09 AM documented in this encounterSumma Health [facility]11-05-2024 NoteHNO ID: [id number] Author: AVELINA DISLA RT(R) Service: ? Author Type: Export Manager Type: Progress Notes Filed: 08/02/2024 10:09 [...] PATIENT PRESENTS WITH AN IMPLANTABLE OR ATTACHED SENIOR ORACLE SOA DEVELOPER: No RADIOLOGY DEPARTMENT: General X-ray: Exam(s) Completed: Upper Extremity X-Ray(s): Hand, right PERIPHERAL IV DATA: Not applicable SIGNED BY: RT Fany(Eyal) August 02, 2024 10:09 [facility]11-05-2024 History of Present illness Narrative* Natan [...] thumb CMC Informed Consent Consent Obtained: Verbal Ilfeld Protocol A moment to CARE was completed. [...] DO Sports Medicine Physician documented in this encounterSumma Health [facility] Campus11-05-2024 NoteHNO ID: [id number] Author: NATAN ALCAZAR DO Service: ? Author [...] thumb CMC Informed Consent Consent Obtained: Verbal Ilfeld Protocol A moment to CARE was completed. [...] Electronically Signed: Natan Alcazar DO Sports Medicine PhysicianUk Healthcare10-10-2024 Telephone encounter Note* Telephone Encounter - Maureen Kirby RN - 07/07/2024 1:24 PM EDT Patients called checking on prescription for Gabapentin- which was called into pharmacy and looking for info on the US guided injection for his thumb. A consult request was sent to Dr Sanchez and they will contact the pt to schedule an appt. verbalized understanding of info. [facility]10-10-2024 Miscellaneous Notes* Telephone Encounter - Maureen Kirby RN - 07/07/2024 1:24 PM EDT Patients called checking on prescription for Gabapentin- which was called into pharmacy and looking for info on the US guided injection for his thumb. A consult request was sent to Dr Sanchez and they will contact the pt to schedule an appt. verbalized understanding of info. documented in this encounterSumma Health [facility]10-09-2024 Telephone encounter Note * Telephone Encounter - Seda Hatch LISW - 07/06/2024 8:38 AM EDT Images from the original note were not included. Patient Declined Social Work Assessment He states he did not fill this survey out CLARITA Weir [facility] Work Phone: 1(460) 413-513810-09-2024 Miscellaneous Notes* Telephone Encounter - Seda Hatch LISW - 07/06/2024 8:38 AM EDT Images from the original note were not included. Patient Declined Social Work Assessment He states he did not fill this survey out CLARITA Weir documented in this encounterSumma Health Ak[facility] Campus10-08-2024 NoteHNO ID: [id number] Author: LEE WAYNE MD Service: ? Author Type: Physician Type: Progress Notes Filed: 07/25/2024 15:23 Note Text: Lee Wayne MD Department of Orthopaedics Orthopaedics [address] [address] Dept: [phone] July 05, 2024 CHIEF COMPLAINT: Post Op [...] and degenerative changes with possible scapholunate dissociation Compliance Advisor: SAMANTHA Transcribe Date/Time: Apr 01 2024 7:48A Dictated by : ISAEL MAGAÑA MD This examination was interpreted and the report reviewed and electronically signed by: ISAEL MAGAÑA MD on Apr 01 2024 7:49AM EST Results-Findings * * *Final Report* * * DATE OF EXAM: Mar 29 2024 10:03AM MANUEL 5270 - XR WRIST 3V PA/LAT/OBL LT / PROCEDURE REASON: [id number] * * * * Physician Interpretation * [...] Please supply patient with Full face mask, Bantam Live[employer] VIP 7600. No current facility-administered medications for this visit. Allergies: Patient has no known allergies. Lee Wayne [facility]10-08-2024 History of Present illness Narrative* Lee Wayne MD - 07/05/2024 10:43 AM EDT Lee Wayne MD Department of Orthopaedics Orthopaedics [facility] [address] [address] Dept: [phone] July 05, 2024 CHIEF COMPLAINT: Post Op [...] and degenerative changes with possible scapholunate dissociation Compliance Advisor: SAMANTHA Transcribe Date/Time: Apr 01 2024 7:48A Dictated by : ISAEL MAGAÑA MD This examination was interpreted and the report reviewed and electronically signed by: ISAEL MAGAÑA MD on Apr 01 2024 7:49AM EST Results-Findings * * *Final Report* * * DATE OF EXAM: Mar 29 2024 10:03AM MANUEL 5270 - XR WRIST 3V PA/LAT/OBL LT / PROCEDURE REASON: [id number] * * * * Physician Interpretation * [...] Please supply patient with Full face mask, SkillPixels VIP 7600. No current facility-administered medications for this visit. Allergies: Patient has no known allergies. Lee Wayne MD documented in this encounterSumma Health [facility] Campus09-27-2024 Nurse Note* Ros Cheng RN - 06/24/2024 11:42 AM EDT Images from the original note were not included. Radiation Therapy - Nursing Note (Follow-up) PATIENT NAME: Sylvie Chiu PATIENT June 24, 2024 [facility] FACILITY[facility]LOCATION: [place] Reason for visit: Follow up. Subjective Data I still maya with bowel and bladder problems since the radiation and the side effects from the Lupron injections Additional Data Do you want to see a Art Preparator? No Difficulty performing or completing routine daily [...] Center 07/05/2024 10:45 AM [facility] 08/12/2024 10:50 AM Selwyn Michelle MD [facility] 09/12/2024 8:00 AM Francisco Davis, RAJENDRA.AUTOMOTIVE ACCESSORY INSTALLER [facility] 12/19/2024 8:00 AM [facility] 12/23/2024 9:00 AM Hussein Ordonez MD [facility] 12/27/2024 9:00 AM Alex Erazo MD [facility] SIGNED by: Ros Cheng RN [facility]09-27-2024 Nurse Note* Ros Cheng, DYLAN - 06/24/2024 11:42 AM EDT Images from the original note were not included. Radiation Therapy - Nursing Note (Follow-up) PATIENT NAME: Sylvie Chiu PATIENT June 24, 2024 [facility] FACILITY/LOCATION: [place] Reason for visit: Follow up. Subjective Data I still maya with bowel and bladder problems since the radiation and the side effects from the Lupron injections Additional Data Do you want to see a Art Preparator? No Difficulty performing or completing routine daily [...] Center 07/05/2024 10:45 AM Lee Wayne MD [facility] 08/12/2024 10:50 AM Selwyn Michelle MD [facility] 09/12/2024 8:00 AM Francisco Davis, ROGUER.[facility] 12/19/2024 8:00 AM [facility] 12/23/2024 9:00 AM [facility] 12/27/2024 9:00 AM Alex Erazo MD [facility] SIGNED by: Ros Cheng RN documented in this encounterSumma Health Akron Campus09-27-2024 History of Present illness Narrative* Hussein Ordonez MD - 06/24/2024 11:00 AM EDT Images from the original note were not included. Radiation Oncology - Follow Up Note PATIENT NAME: Sylvie Chiu PATIENT DIAGNOSIS: 74 year old man with high-intermediate risk prostate cancer, [id number], GG2, clinical Stage IIB, iPSA 5.5 [Samantha [...] MANJU. Prostate biopsy on 05/08/22 showed adenocarcinoma, [place] 3+4=7 (1 core), [place] 3+3=6 (9 cores) (10/13 cores+). CT of [...] stools. Colonoscopy on 01/27/24 ([facility]) showed non-bleeding diverticula in the [...] old man with high-intermediate risk prostate cancer, [id number], GG2, clinical Stage IIB, iPSA 5.5 [[place] 3+4=7 (1 core), Samantha 3+3=6 (9 cores) [...] MD Doron Hernadez MD documented in this encounterSumma Health Akron Campus09-27-2024 NoteHNO ID: [id number] Author: HUSSEIN ORDONEZ MD Service: ? Author Type: Physician Type: Progress Notes Filed: 06/24/2024 11:47 Note Text: Radiation Oncology - Follow Up Note PATIENT NAME: Sylvie Chiu PATIENT DIAGNOSIS: 74 year old man with high-intermediate risk prostate cancer, [id number], GG2, clinical Stage IIB, iPSA 5.5 [Samantha 3+4=7 (1 core), [place] 3+3=6 (9 cores) (10/13 cores+); prostate MRI [...] MANJU. Prostate biopsy on 05/08/22 showed adenocarcinoma, [place] 3+4=7 (1 core), Samantha 3+3=6 (9 cores) [...] stools. Colonoscopy on 01/27/24 ([facility]) showed non-bleeding diverticula in the [...] old man with high-intermediate risk prostate cancer, hN5dN2N5, GG2, clinical Stage IIB, iPSA 5.5 [Samantha 3+4=7 (1 core), [place] 3+3=6 (9 cores) (07/10 cores (more content not included)...[facility]08-27-2024 NoteHNO ID: [id number] Author: LEE WAYNE MD Service: ? Author Type: Physician Type: Progress Notes Filed: 06/21/2024 09:16 Note Text: Lee Wayne MD Department of Orthopaedics Orthopaedics [address] [place] [address] Dept: [phone] May 24, 2024 CHIEF COMPLAINT: Established Patient [...] supply patient with Full face mask, Santana Zellwood VIP [id number]. No current facility-administered medications for this visit. Allergies: Patient has no known allergies. Lee Wayne [facility]08-27-2024 History of Present illness Narrative* Lee Wayne MD - 05/24/2024 3:16 PM EDT Lee Wayne MD Department of Orthopaedics Orthopaedics [address] [place] [address] Dept: [phone] May 24, 2024 CHIEF COMPLAINT: Established Patient [...] supply patient with Full face mask, Santana Zellwood VIP [id number]. No current facility-administered medications for this visit. Allergies: Patient has no known allergies. Lee Wayne MD documented in this encounterSumma Health Akron Campus07-30-2024 NoteHNO ID: [id number] Author: AFSANEH HAYES PA-C Service: ? Author Type: Physician Hospital Coordinator Type: Progress Notes Filed: 04/26/2024 12:04 Note Text: Afsaneh Hayes PA-C Department of Orthopaedics Orthopaedics [address] [address] Dept: [phone] April 26, 2024 CHIEF COMPLAINT: Post Op [...] allergies. This note was partially generated using ThirdPresence voice recognition system, and there may be some incorrect words, spellings, and punctuation that were not noted in checking the note before saving. RACHEL [facility]07-30-2024 History of Present illness Narrative* Afsaneh Hayes PA-C - 04/26/2024 12:03 PM EDT Afsaneh Hayes PA-C Department of Orthopaedics Orthopaedics [address] [address] Dept: [phone] April 26, 2024 CHIEF COMPLAINT: Post Op [...] supply patient with Full face mask, Santana Zellwood VIP [id number]. iv contrast (will be provided [...] allergies. This note was partially generated using [employer]Pres[employer] voice recognition system, and there may be some incorrect words, spellings, and punctuation that were not noted in checking the note before saving. Afsaneh Hayes PA-C documented in this encounterSumma Health Akron Campus07-03-2024 Telephone encounter Note * Telephone Encounter - Chantale Abdul MA - 03/30/2024 10:52 AM EDT Surgery has been scheduled as requested. Post op appointments have been scheduled and mailed to the patient. [facility]07-03-2024 Miscellaneous Notes* Telephone Encounter - Chantale Abdul MA - 03/30/2024 10:52 AM EDT Surgery has been scheduled as requested. Post op appointments have been scheduled and mailed to the patient. * Telephone Encounter - Chantale Abdul MA - 03/29/2024 2:01 PM EDT Surgical request completed for left CTR at [facility] on 04/15/2024 with local anesthesia. documented in this encounterSumma Health Akron Campus07-02-2024 Telephone encounter Note * Telephone Encounter - Chantale Abdul MA - 03/29/2024 2:01 PM EDT Surgical request completed for left CTR at [facility] on 04/15/2024 with local anesthesia. [facility]07-02-2024 History of Present illness Narrative* Lee Wayne MD - 03/29/2024 10:48 AM EDT Lee Wayne MD Department of Orthopaedics Orthopaedics [address] [place] [address] Dept: [phone] March 29, 2024 CHIEF COMPLAINT: New and Pain of the Left Hand HPI Patient here today for left hand/wrist pain. 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 No current facility-administered medications for this visit. Allergies: Patient has no known allergies. ROS: General (negative for fatigue, malaise, weight loss/gain) HEENT (negative for headache, earache, recent vision changes, sinus pain, sore throat) Respiratory (no recent shortness of breath, hemoptysis) CV (negative for chest tightness, palpitations) Musculoskeletal (see HPI) Psych (no depression, anxiety) Lee Wayne MD documented in this encounterSumma Health [facility]ron Campus07-02-2024 History of Present illness Narrative* Amisha Green [...] PATIENT PRESENTS WITH AN IMPLANTABLE OR ATTACHED SENIOR ORACLE SOA DEVELOPER: No RADIOLOGY DEPARTMENT: General X-ray: Exam(s) Completed: Upper Extremity X- Ray(s): Wrist, left PERIPHERAL IV DATA: Not applicable SIGNED BY: Geno Christina March 29, 2024 10:11 AM documented in this encounterSumma Health Akron Campus06-05-2024 History of Present illness Narrative* Albina Smith [...] PATIENT PRESENTS WITH AN IMPLANTABLE OR ATTACHED SENIOR ORACLE SOA DEVELOPER: No RADIOLOGY DEPARTMENT: General X-ray: Exam(s) Completed: Spine X-Ray(s): Thoracic PERIPHERAL IV DATA: Not applicable SIGNED BY: RT Sal(R) March 02, 2024 3:48 PM documented in this encounterSumma Health Akron Campus05-24-2024 NoteHNO ID: [id number] Author: SELWYN MICHELLE MD Service: ? Author Type: Physician Type: Progress Notes Filed: 02/19/2024 15:01 Note Text: HISTORY: Sylvie Chiu is a 73 year old man with high-intermediate risk prostate cancer, [id number], Stage IVB, GG2, clinical Stage IIB [[place] 3+4=7 (1 core), Samantha 3+3=6 (9 cores) [...] Prostate, left apex, biopsy: - Prostatic adenocarcinoma, [place] score 3+3=6, grade group 1, involving 1 [...] left lateral mid, biopsy: - Prostatic adenocarcinoma, [place] score 3+3=6, grade group 1, involving 1 [...] right lateral mid, biopsy: - Prostatic adenocarcinoma, [place] score 3+3=6, grade group 1, involving 1 of 1 core (1 mm, 10%). L.Prostate, right lateral apex, biopsy: - Prostatic adenocarcinoma, [place] score 3+3=6, grade group 1, involving 1 of 1 core (2 mm, 30%). Prostate Cancer Biopsy Summary Number of cores examined: 13 Number of cores positive: 10 Highest Grade Group: 2 Highest % of core involvement: 85 % Cribriform pattern 4: Present, small gland Intraductal carcinoma: Suspicious [employer] tumor block to use for additional studies: [...] cystoscopy suite and fabiola (more content not included)...[id number] History of Present illness Narrative * Selwyn Michelle MD - 02/19/2024 3:00 PM EDT HISTORY: Sylvie Chiu is a 73 year old man with high-intermediate risk prostate cancer, [id number], Stage IVB, GG2, clinical Stage IIB [[place] 3+4=7 (1 core), Samantha 3+3=6 (9 cores) [...] left lateral base, biopsy: - Prostatic adenocarcinoma, [place] score 3+4=7, grade group 2, involving 1 of 1 core (6 mm, 85%). - Samantha pattern 4 comprises approximately 10% of the carcinoma. - Small gland cribriform morphology is identified. - Atypical intraductal proliferation (AIP) is present. E. Prostate, left lateral mid, biopsy: - Prostatic adenocarcinoma, [place] score 3+3=6, grade group 1, involving 1 of 1 core (2 mm, 50%) F. Prostate, left lateral apex, biopsy: - Prostatic adenocarcinoma, [place] score 3+3=6, grade group 1, involving 1 of 1 core (1 mm, 30%). G. Prostate, right base, biopsy: - Benign prostate tissue. H. Prostate, right mid, biopsy: - Prostatic adenocarcinoma, Samantha score 3+3=6, grade group 1, involving 2 of 2 cores (1 mm, 30%; 1 mm, 20%) I. Prostate, right apex, biopsy: - Prostatic adenocarcinoma, [place] score 3+3=6, grade group 1, involving 1 [...] 4: Present, small gland Intraductal carcinoma: Suspicious [employer] tumor block to use for additional studies: [...] in the bone, follow-up is recommended. Dam[facility]'s [facility] NOTE/ UNIVERSAL PROTOCOL/ SAFETY CHECKLIST Sign [...] Past Histories independently gathered by the clinical postal support employee and the remaining scribed note accurately describes my personal service to the patient. Dr. Selwyn Michelle MD documented in this encounterSumma Health [facility]ron Campus05-24-2024 Nurse Note* Ruth Quiñones MA - 02/19/2024 [...] Education Session: None Instruction Provided To: Patient Manager Of Exhibitions And Collections Present: not applicable Discipline: Nursing Learning Topic: SURVIVAL SKILLS: Complication Prevention Symptom Management Patient Evaluation: Verbalizes understanding: Yes Supplemental Material Given: Written Material Instructed By Ruth Quiñones MA In Department Urology . [facility]05-24-2024 Nurse Note* Ruth Quiñones MA - 02/19/2024 [...] Education Session: None Instruction Provided To: Patient Manager Of Exhibitions And Collections Present: not applicable Discipline: Nursing Learning Topic: SURVIVAL SKILLS: Complication Prevention Symptom Management Patient Evaluation: Verbalizes understanding: Yes Supplemental Material Given: Written Material Instructed By Ruth Quiñones MA In Department Urology . 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 - For decades, has had pain in the spine, shoulders, hands (entire), hips, L knee and feet. Worse after activity. Worst time of day is the evening. - In , started on HCQ 200mg/day by PCP. - at [facility], reports he's unsure whether HCQ has helped. [...] Please supply patient with Full face mask, [employer] VIP [id number]. No current facility-administered medications for this visit. FAMILY HISTORY Problem Relation Age of Onset Colon Cancer Father mgf other (hyperchol) Father other (cva) Father pgf, mgm other (heart dis) Father pgm Prostate Cancer Maternal Grandfather SOCIAL HISTORY: Lives in [place] with spouse Tobacco use: None Alcohol use: [...] 03/05/2012 11/14/2015 Sm Antibody <1.0 AI <0.2 SCREEN PRINTING INSPECTOR Antibody <1.0 AI <0.2 SSA Antibody <1.0 AI 0.2 SSB Antibody <1.0 AI 1.0 (H) Centromere Ab <1.0 AI <0.2 Scleroderma Ab, IgG <1.0 AI <0.2 Constance 1 Antibody <1.0 AI <0.2 Ribosomal SCREEN PRINTING INSPECTOR <1.0 AI <0.2 Chromatin Antibody <1.0 AI [...] the care of your patient. Francisco Davis APRN.AUTOMOTIVE ACCESSORY INSTALLER documented in this encounterSumma Health Akron Campus05-07-2024 Telephone encounter Note * Telephone Encounter - Mony Weinberg MA - 02/02/2024 12:02 PM EDT Called and assisted patient with scheduling appts with Francisco as requested. Mony Weinberg MA [facility]05-07-2024 Miscellaneous Notes* Telephone Encounter - Mony Weinberg [...] if any questions. Thanks. documented in this encounterSumma Health Akron Campus05-07-2024 Telephone encounter Note * Telephone Encounter - Meche Bunch - 02/02/2024 10:20 AM EDT Patient called and asked if there was something else he can take besides the plaquenil since it effects eyesight. Please advise [facility]05-07-2024 Telephone encounter Note* Telephone Encounter - Mony Leiva RN - 02/02/2024 8:29 AM EDT Spoke with patient. Message relayed. Agrees with plan. States he has regular Opthalmology appointments, verbalizes understanding of Plaquenil eye exam requirements Mony Leiva RN [facility]05-07-2024 Telephone encounter Note* Telephone Encounter - Mony [...] Let me know if any questions. Thanks. [facility]05-03-2024 NoteHNO ID: [id number] Author: AMANDA HORTON MA Service: ? Author Type: Inventory Analyst Type: Progress Notes Filed: 01/29/2024 16:04 Note Text: Post Void Residual done on patient with 0 cc residual volume remaining. MD notified. Amanda [facility]ortonFloating [facility] for [facility]05-03-2024 NoteHNO ID: [id number] Author: ?, ?, ? Service: ? Author Type: ? Type: Progress Notes Filed: 01/29/2024 16:04 Note Text: [facility] PATIENT HISTORY AND PHYSICAL EXAM PATIENT INFO: Sylvie Chiu 73 year old REFERRING M.Cherie: Hussein Ordonez [id number] [facility] [id number] CHIEF COMPLAINT: Prostate cancer, LUTS HISTORY: Sylvie Chiu is a 73 year old man with high-intermediate risk prostate cancer, [id number], Stage IVB, GG2, clinical Stage IIB [[place] 3+4=7 (1 core), Samantha 3+3=6 (9 cores) [...] Prostate, left mid, biopsy: - Prostatic adenocarcinoma, [place] score 3+3=6, grade group 1, involving 1 of 1 core (4 mm, 65%). C. Prostate, left apex, biopsy: - Prostatic adenocarcinoma, Samantha score 3+3=6, grade group 1, involving 1 of 1 core (1 mm, 25%). D. Prostate, left lateral base, biopsy: - Prostatic adenocarcinoma, Samantha score 3+4=7, grade group 2, involving 1 of 1 core (6 mm, 85%). - [place] pattern 4 comprises approximately 10% of the [...] Prostate, right apex, biopsy: - Prostatic adenocarcinoma, [place] score 3+3=6, grade group 1, involving 1 [...] 4: Present, small gland Intraductal carcinoma: Suspicious [employer] tumor block to use for additional studies: [...] Right 06/30/2018 Knee replacement, (more content not included)...[facility] [id number] History of Present illness Narrative* Amanda Horton MA - 01/29/2024 3:57 PM EDT Post Void Residual done on patient with 0 cc residual volume remaining. MD notified. 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 C. Prostate, left apex, biopsy: - Prostatic adenocarcinoma, Samantha score 3+3=6, grade group 1, involving 1 of 1 core (1 mm, 25%). D. Prostate, left lateral base, biopsy: - Prostatic adenocarcinoma, Samantha score 3+4=7, grade group 2, involving 1 of 1 core (6 mm, 85%). - [place] pattern 4 comprises approximately 10% of the carcinoma. - Small gland cribriform morphology is identified. - Atypical intraductal proliferation (AIP) is present. E. Prostate, left lateral mid, biopsy: - Prostatic adenocarcinoma, [place] score 3+3=6, grade group 1, involving 1 of 1 core (2 mm, 50%) F. Prostate, left lateral apex, biopsy: - Prostatic adenocarcinoma, Samantha score 3+3=6, grade group 1, involving 1 of 1 core (1 mm, 30%). G. Prostate, right base, biopsy: - Benign prostate tissue. H. Prostate, right mid, biopsy: - Prostatic adenocarcinoma, [place] score 3+3=6, grade group 1, involving 2 of 2 cores (1 mm, 30%; 1 mm, 20%) I. Prostate, right apex, biopsy: - Prostatic adenocarcinoma, Samantha score 3+3=6, grade group 1, involving 1 of 1 core (3 mm, 50%). J. Prostate, right lateral base, biopsy: - Benign prostate tissue. K. 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 Dr. Selwyn Michelle MD documented in this encounterSumma Health Akron Campus04-16-2024 Miscellaneous Notes* Telephone Encounter - Ros Cheng RN - 01/12/2024 10:18 AM EDT Called patient back left due to no number listed for his . Orders placed by Dr. Ordonez lab was called by [facility] made aware orders entered * Telephone Encounter - Khadijah Waters - 01/12/2024 9:42 AM EDT Patients is calling stating that patient is at [place] right now getting an MRI and she is asking if Dr Ordonez can please put in an order for a urine test because patient is having a lot ofpain and burning when urinating. documented in this encounterSumma Health Akron Campus04-16-2024 History of Present illness Narrative* Rashi Barron [...] PATIENT PRESENTS WITH AN IMPLANTABLE OR ATTACHED SENIOR ORACLE SOA DEVELOPER: No RADIOLOGY DEPARTMENT: MR; Exam(s) Completed: Lower MSK: Pelvis, bilateral Soft tissue pelvis PERIPHERAL IV DATA: Not applicable SIGNED BY: RT Shahram(R) January 12, 2024 10:21 AM documented in this encounterSumma Health Akron Campus03-21-2024 Nurse Note* Ros Cheng RN - 12/17/2023 9:28 AM EDT Images from the original note were not included. Radiation Therapy - Nursing Note (Follow-up) PATIENT NAME: Sylvie Chiu PATIENT December 17, 2023 [facility] FACILITY/LOCATION: [place] Reason for visit: Follow up. Subjective Data I am having a lot of trouble with bowels and bladder. I have pelvic pain which has intensified since since my last visit here. Additional Data Do you want to see a Art Preparator? No Difficulty performing or completing routine daily [...] by: Ros Cheng RN documented in this encounterSumma Health Akron Campus03-21-2024 History of Present illness Narrative* Hussein Ordonez MD - 12/17/2023 9:00 AM EDT Images from the original note were not included. Radiation Oncology - Follow Up Note PATIENT NAME: Sylvie Chiu PATIENT DIAGNOSIS: 73 year old man with high-intermediate risk prostate cancer, [id number], GG2, clinical Stage IIB, iPSA 5.5 [[place] 3+4=7 (1 core), [place] 3+3=6 (9 cores) (10/13 cores+); prostate MRI [...] Please supply patient with Full face mask, Sk[employer]Pixels VIP [id number]. REVIEW OF SYSTEMS: Arthritic pain Pelvic pressure [...] old man with high-intermediate risk prostate cancer, [id number], GG2, clinical Stage IIB, iPSA 5.5 [[place] 3+4=7 (1 core), [place] 3+3=6 (9 cores) (10/13 cores+); prostate MRI- [...] will arrange for consultation with urology at [facility], gastroenterology ([facility] in [place]) and MRI pelvis ([place]; I will call with results). I will see him again in 6 months with a PSA level. I spent 15 minutes in the visit in counseling / coordination of care. Signed by: Hussein Ordonez MD cc: Rickie Agosto MD documented in this encounterSumma Health Akron Campus03-19-2024 Miscellaneous Notes* Telephone Encounter - Mony Weinberg [...] in the past year. documented in this encounterSumma Health Akron Campus03-19-2024 Miscellaneous Notes* Telephone Encounter - Hussein Lyons [...] FACILITY Slot held: N/A documented in this encounterSumma Health Akron Campus03-18-2024 Miscellaneous Notes* Telephone Encounter - Pricilla Cardenas - 12/14/2023 2:57 PM EDT US HAND/WRIST SYNOVIAL SCREEN LEFT (Order #[id number]) on 12/14/23 US HAND/WRIST SYNOVIAL SCREEN RIGHT (Order #[id number]) on 12/14/23 documented in this encounterSumma Health Akron Campus03-18-2024 Instructions* Patient Instructions* Alex Erazo MD - [...] an upset stomach, you can try taking qjzo-cvi-dgepwcc omeprazole (ie Prilosec) for stomach protection. If [...] pain while on NSAIDs. documented in this encounterSumma Health Akron Campus03-18-2024 History of Present illness Narrative* Alex Erazo MD - 12/14/2023 2:17 PM EDT On 12/14/2023, I had the pleasure of seeing Sylvie Chiu at the [facility]. Sylvie Chiu was referred by Dr. Hussein Ordonez for an opinion and advice regarding joint pain. My findings and final recommendations will be communicated to the requesting health care provider by way of the shared medical record for internal providers or letter via the [employer] for external providers. 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 [...] Please supply patient with Full face mask, [employer]Pixels VIP [id number]. No current facility-administered medications for this visit. FAMILY HISTORY Problem Relation Age of Onset Colon Cancer Father mgf other (hyperchol) Father other (cva) Father pgf, mgm other (heart dis) Father pgm Prostate Cancer Maternal Grandfather SOCIAL HISTORY: Lives in [place] with spouse Tobacco use: None Alcohol use: [...] >9 consistent with fibromyalgia LABORATORY: Latest Ref [facility] 09/25/2023 WBC 3.70 - 11.00 k/uL 4.44 [...] 03/05/2012 11/14/2015 Sm Antibody <1.0 AI <0.2 SCREEN PRINTING INSPECTOR Antibody <1.0 AI <0.2 SSA Antibody <1.0 AI 0.2 SSB Antibody <1.0 AI 1.0 (H) Centromere Ab <1.0 AI <0.2 Scleroderma Ab, IgG <1.0 AI <0.2 Constance 1 Antibody <1.0 AI <0.2 Ribosomal SCREEN PRINTING INSPECTOR <1.0 AI <0.2 Chromatin Antibody <1.0 AI [...] which included preparing to see the patient, [id number] patient care, completing clinical documentation, obtaining and/or reviewing separately obtained history, performing a medically appropriate examination, counseling and educating the pat ient/family/caregiver, ordering medications, tests, or procedures, independently interpreting results (not separately reported), and communicating results to the patient/family/caregiver. documented in this encounterSumma Health Akron Campus10-23-2023 History of Present illness Narrative* Stephanie Marie, [...] 20, 2023 7:56 AM documented in this encounterSumma Health Akron Campus10-12-2023 Miscellaneous Notes* Telephone Encounter - Rohini Saab RN - 07/09/2023 12:09 PM EDT Per Coral, patient wanted XRays done at [facility] and they cannot all be done in the same department, so the patient opted for the [facility] to schedule vs walk in. documented in this encounterSumma Health Akron Campus09-18-2023 Nurse Note* Rohini Saab RN - 06/15/2023 11:53 AM EDT Images from the original note were not included. Radiation Therapy - Nursing Note (Follow-up) PATIENT NAME: Sylvie Chiu PATIENT June 15, 2023 [facility] FACILITY/LOCATION: [place] Reason for visit: Follow up. Subjective Data My energy is low. I am tired all the time and my gut hurts all the time. I have 3, 4, 5 loose stools a day. I don't take the Imodium. I just don't like taking all these pills. Additional Data Do you want to see a Art Preparator? No Difficulty performing or completing routine daily [...] by: Rohini Saab RN documented in this encounterSumma Health Akron Campus09-18-2023 History of Present illness Narrative* Hussein Ordonez MD - 06/15/2023 9:00 AM EDT Images from the original note were not included. Radiation Oncology - Follow Up Note PATIENT NAME: Sylvie Chiu PATIENT DIAGNOSIS: 73 year old man with high-intermediate risk prostate cancer, [id number], GG2, clinical Stage IIB, iPSA 5.5 [[place] 3+4=7 (1 core), [place] 3+3=6 (9 cores) (10/13 cores+); prostate MRI [...] MANJU. Prostate biopsy on 05/08/22 showed adenocarcinoma, [place] 3+4=7 (1 core), Samantha 3+3=6 (9 cores) [...] supply patient with Full face mask, Santana Zellwood VIP [id number]. REVIEW OF SYSTEMS: Energy is [...] old man with high-intermediate risk prostate cancer, [id number], GG2, clinical Stage IIB, iPSA 5.5 [[place] 3+4=7 (1 core), [place] 3+3=6 (9 cores) (10/ cores+); prostate MRI- [...] with more than 50% of the total dqew-be-tzhu time of the visit in counseling / coordination of care. Signed by: Hussein Ordonez MD cc: Rickie Agosto MD documented in this encounterSumma Health Akron Campus07-14-2023 History of Present illness Narrative* Selwyn Leiva [...] results and radiologist's interpretation, available in the [facility] health record. AP pelvis Images were [...] above. Selwyn Leiva PA-C documented in this encounterSumma Health Akron Campus07-14-2023 History of Present illness Narrative* Eileen Partida [...] 10, 2023 9:06 AM documented in this encounterSumma Health Akron Campus06-15-2023 History of Present illness Narrative* Patricia Mims APRN.AUTOMOTIVE ACCESSORY INSTALLER - 03/12/2023 12:41 PM EDT Chief Complaint: [...] APRN.CNP March 12, 2023 documented in this encounterSumma Health Akron Campus05-11-2023 History of Present illness Narrative* Afsaneh Hayes PA-C - 02/05/2023 3:20 PM EDTAssociated Order(s): Small Joint Arthro/Inj: L thumb CMC Post-Procedure Diagnose(s): Thumb pain, right; Primary osteoarthritis of first carpometacarpal joint of left hand Afsaneh Hayes PA-C Department of Orthopaedics Orthopaedics [address] [place] [id number] Dept: [phone] February 05, 2023 CHIEF COMPLAINT: New and [...] at work. 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 He is [...] thumb CMC Informed Consent Consent Obtained: Verbal [place]feld Protocol A moment to CARE was completed. [...] Imaging: IMPRESSION: Degenerative changes. No acute abnormality Compliance Advisor: PSCB Transcribe Date/Time: Feb 07 2023 7:11P [...] Please supply patient with Full face mask, SkillPixels VIP 7600. loperamide HCl (IMODIUM A-D ORAL) [...] anxiety) This note was partially generated using ThirdPresence voice recognition system, and there may be some incorrect words, spellings, and punctuation that were not noted in checking the note before saving. Afsaneh Hayes PA-C documented in this encounterSumma Health Akron Campus05-11-2023 History of Present illness Narrative* Nisha Marquez CT - 02/05/2023 2:40 PM EDT Radiology [...] 05, 2023 2:49 PM documented in this encounterSumma Health Akron Campus05-11-2023 Miscellaneous Notes* [facility] - Cinthia Kat RT(R) - 02/05/2023 2:40 [...] 05, 2023 4:10 PM documented in this encounterSumma Health Akron Campus05-11-2023 Progress note* [facility] - Cinthia Kta RT(R) - 02/05/2023 2:40 PM EDT Radiology [...] RT Coral(Eyal) February 05, 2023 4:10 PM [facility]05-05-2023 History of Present illness Narrative* Selwyn Leiva [...] knee joint Informed Consent Consent Obtained: Verbal Ilfeld Protocol A moment to CARE was completed. [...] applicable. Selwyn Leiva PA-C documented in this encounterSumma Health Akron Campus04-17-2023 Nurse Note* Ros Cheng RN - 01/12/2023 10:28 AM EDT Images from the original note were not included. Radiation Therapy - Nursing Note (Follow-up) PATIENT NAME: Sylvie Chiu PATIENT January 12, 2023 [facility] FACILITY/LOCATION: [place] Reason for visit: Follow up. Subjective Data I have a whole body rash, unknown cause. I saw TITLE SUPERVISOR told to stop Neurontin now arthritis is [...] Data Do you want to see a Art Preparator? No Difficulty performing or completing routine daily [...] Department Center 03/09/2023 10:00 [facility]/12/2023 10:00 AM Rickie Agosto MD [facility] 03/12/2023 10:30 AM INJECTION WERO [facility] STRO HEMAST [facility] SIGNED by: Ros Cheng RN documented in this encounterSumma Health Akron Campus04-17-2023 History of Present illness Narrative* Hussein Ordonez MD - 01/12/2023 10:00 AM EDT Images from the original note were not included. Radiation Oncology - Follow Up Note PATIENT NAME: Sylvie Chiu PATIENT DIAGNOSIS: 72 year old man with high-intermediate risk prostate cancer, [id number], GG2, clinical Stage IIB, iPSA 5.5 [Samantha 3+4=7 (1 core), [place] 3+3=6 (9 cores) (10/ cores+); prostate MRI [...] old man with high-intermediate risk prostate cancer, [id number], GG2, clinical Stage IIB, iPSA 5.5 [[place] 3+4=7 (1 core), [place] 3+3=6 (9 cores) (10/13 cores+); prostate MRI- [...] Lupron injections but will discuss thiswith Dr. Agosto. I will see him in mid May for follow-up with a PSA prior. Signed by: Hussein Ordonez MD cc: Norma Davies ([facility]) [address] [place] [address] DO Rickie Dean MD documented in this encounterSumma Health Akron Campus03-21-2023 History of Present illness Narrative* Hussein Ordonez MD - 12/16/2022 12:00 AM EDT SYLVIE CHIU [id number] 12/16/2022 [facility] Department of Radiation Oncology [facility] RADIATION ONCOLOGY: COMPLETION NOTE DATE OF SIMULATION: 10/23/2022 DATES OF TREATMENT: 11/06/2022 to 12/15/2022 TREATMENT MACHINE: S_Keko TREATMENT AREA: Pelvis DIAGNOSIS: 72 year old man with high-intermediate risk prostate cancer, [id number], Stage IVB, GG2, clinical Stage IIB, iPSA 5.5 [[place] 3+4=7 (1 core), Samantha 3+3=6 (9 cores) [...] 37:16 AM Electronically Signed cc: Norma Davies ([facility]) [address] [place] [address] DO Rickie Dean MD documented in this encounterSumma Health Akron Campus03-15-2023 History of Present illness Narrative* Hussein Ordonez MD - 12/10/2022 10:45 AM EDT Radiation Oncology - On Treatment Review (OTR) Note PATIENT NAME: Sylvie Chiu PATIENT DIAGNOSIS: 72 year old man with high-intermediate risk prostate cancer, [id number], GG2, clinical Stage IIB, iPSA 5.5 [[place] 3+4=7 (1 core), [place] 3+3=6 (9 cores) (10/13 cores+); prostate MRI [...] 12/09/22. Hussein Ordonez MD documented in this encounterSumma Health Akron Campus03-15-2023 Nurse Note* Ros Cheng RN - 12/10/2022 10:38 AM EDT Images from the original note were not included. Radiation Therapy - Nursing Note (OTV) PATIENT NAME: Sylvie Chiu PATIENT December 10, 2022 [facility] FACILITY/LOCATION: [place] NURSING NOTE TYPE: PROSTATE - MALE PELVIS Subjective Data I am more tired, still having diarrhea, and frequent urination. The RLE is more swollen, and red this week. Additional Data Do you want to see a Art Preparator? No Difficulty performing or completing routine daily [...] Department Center 12/11/2022 10:15 AM TREATMENT RAD [facility] STRO [facility] 12/12/2022 10:15 AM TREATMENT RAD [facility] STRO [facility] 12/15/2022 10:15 AM TREATMENT RAD [facility] STRO [facility] 01/12/2023 10:00 AM Hussein Ordonez MD RADRST [facility] 03/09/2023 10:00 AM LAB [facility] 03/12/2023 10:00 AM Rickie Agosto MD H[facility] 03/12/2023 10:30 AM INJECTION [facility] H[facility] Stro SIGNED by: Ros Cheng RN documented in this encounterSumma Health Akron Campus03-14-2023 History of Present illness Narrative* Patricia Mims APRN.AUTOMOTIVE ACCESSORY INSTALLER - 12/09/2022 9:18 AM EDT Chief Complaint: [...] - Prostatic adenocarcinoma -Samantha 3+4=7 (1 core), [place] 3+3=6 (9 cores) (07/10 cores+) 05/08/2022 - [...] APRN.CNP December 09, 2022 documented in this encounterSumma Health Akron Campus03-08-2023 Nurse Note* Ros Cheng RN - 12/03/2022 10:48 AM EST Radiation Therapy - Nursing Note (OTV) PATIENT NAME: Sylvie Chiu PATIENT December 03, 2022 [facility] FACILITY[facility]LOCATION: [place] NURSING NOTE TYPE: PROSTATE - MALE PELVIS Subjective Data I am still having diarrhea and will I have to go I need to get there fast. I am doing 1-2 Imodium aday. The 2 Flomax a day has helped . I had the first time every yesterday morning pelvic cramping. Additional Data Do you want to see a Art Preparator? No Difficulty performing or completing routine daily [...] by: Ros Cheng RN documented in this encounterSumma Health Akron Campus03-08-2023 History of Present illness Narrative* Hussein Ordonez MD - 12/03/2022 10:45 AM EST Radiation Oncology - On Treatment Review (OTR) Note PATIENT NAME: Sylvie Chiu PATIENT DIAGNOSIS: 72 year old man with high-intermediate risk prostate cancer, [id number], GG2, clinical Stage IIB, iPSA 5.5 [[place] 3+4=7 (1 core), Samantha 3+3=6 (9 cores) [...] 12/09/22. Hussein Ordonez MD documented in this encounterSumma Health Akron Campus03-07-2023 Nurse Note* Ros Cheng RN - 12/02/2022 [...] will be done today. documented in this encounterSumma Health Akron Campus03-01-2023 History of Present illness Narrative* Hussein Ordonez MD - 11/26/2022 10:45 AM EST Radiation Oncology - On Treatment Review (OTR) Note PATIENT NAME: Sylvie Chiu PATIENT DIAGNOSIS: 72 year old man with high-intermediate risk prostate cancer, [id number], GG2, clinical Stage IIB, iPSA 5.5 [Samantha [...] 12/09/22. Hussein Ordonez MD documented in this encounterSumma Health Akron Campus03-01-2023 Nurse Note* Ros Cheng RN - 11/26/2022 10:25 AM EST Radiation Therapy - Nursing Note (OTV) PATIENT NAME: Sylvie Chiu PATIENT November 26, 2022 [facility] FACILITY[facility]LOCATION: [place] NURSING NOTE TYPE: PROSTATE - MALE PELVIS Subjective Data I started having diarrhea, I have gone 4 times since I got up this morning. I do have slight burning at the start of urination and increased urgency and sometimes will have the urgency and urinate very little Additional Data Do you want to see a Art Preparator? No Difficulty performing or completing routine daily [...] by: Ros Cheng RN documented in this encounterSumma Health Akron Campus02-22-2023 Nurse Note* Rohini Saab RN - 11/19/2022 1:21 PM EST Images from the original note were not included. Radiation Therapy - Nursing Note (OTV) PATIENT NAME: Sylvie Chiu PATIENT November 19, 2022 [facility] FACILITY[facility]LOCATION: [place] NURSING NOTE TYPE: PROSTATE - MALE PELVIS Subjective Data I am having 4, 5, 6 bowel movements a day. They are less formed, some looser. I am usually a one and done a day. Additional Data Do you want to see a Art Preparator? No Difficulty performing or completing routine daily [...] frequency,incomplete emptying. Urinary frequency (D/N): 10-12/0. Using How do you roll? SIGNED by: Rohini Saab RN documented in this encounterSumma Health Akron Campus02-22-2023 History of Present illness Narrative* Hussein Ordonez MD - 11/19/2022 10:45 AM EST Radiation Oncology - On Treatment Review (OTR) Note PATIENT NAME: Sylvie Chiu PATIENT DIAGNOSIS: 72 year old man with high-intermediate risk prostate cancer, [id number], GG2, clinical Stage IIB, iPSA 5.5 [[place] 3+4=7 (1 core), [place] 3+3=6 (9 cores) (07/10 cores+); prostate MRI [...] 12/09/22. Hussein Ordonez MD documented in this encounterSumma Health Akron Campus02-14-2023 History of Present illness Narrative* Hussein Ordonez MD - 11/11/2022 10:45 AM EST Radiation Oncology - On Treatment Review (OTR) Note PATIENT NAME: Sylvie Chiu PATIENT DIAGNOSIS: 72 year old man with high-intermediate risk prostate cancer, [id number], GG2, clinical Stage IIB, iPSA 5.5 [[place] 3+4=7 (1 core), Samantha 3+3=6 (9 cores) [...] Lupron. Hussein Ordonez MD documented in this encounterSumma Health Akron Campus02-14-2023 Nurse Note* Ros Cheng RN - 11/11/2022 10:40 AM EST Radiation Therapy - Nursing Note (OTV) PATIENT NAME: Sylvie Chiu PATIENT November 11, 2022 [facility] FACILITY[facility]LOCATION: [place] NURSING NOTE TYPE: PROSTATE - MALE PELVIS [...] Data Do you want to see a Art Preparator? No Difficulty performing or completing routine daily [...] by: Ros Cheng RN documented in this encounterSumma Health Akron Campus02-10-2023 History of Present illness Narrative* CLARITA Oquenod - 11/07/2022 10:41 AM EST SOCIAL WORK Date of Service: Monday November 07, 2022 [facility] Bead Trimmer (SW) Rohini Cody met with Sylvie Chiu after his second radiation treatment to complete the initial social work assessment. Sylvie has been diagnosed with prostate cancer. SW introduced herself and reviewed [facility] supportive services, community transportation, and copay assistance if needed. SW provided the Patient Services sheet, the Coping and Distress handout, and the Cancer Answer Line. SW also provided information on [facility], and the [facility]. Sylvie reported that he has been coping well. SW encouraged him to call [phone] if psychosocial needs arise. At this time, social work service is declined/deferred based on: he is not interested. Please re-consult social work if any other psychosocial needs arise. PLAN: Follow up on an as needed basis CLARITA Oquendo documented in this encounterSumma Health Akron Campus01-26-2023 History of Present illness Narrative* Hussein Ordonez MD - 10/23/2022 12:00 AM EST SYLVIE CHIU [id number] 10/23/2022 [facility] Department of Radiation Oncology [facility] RADIATION ONCOLOGY SIMULATION NOTE DATE OF SIMULATION: 10/23/2022 MACHINE: [employer] [facility] DIAGNOSIS: Malignant neoplasm of prostate AREA: [...] Ordonez M.D. 33:21 PM documented in this encounterSumma Health Akron Campus12-30-2022 Miscellaneous Notes* Telephone Encounter - Jose Gilbert - 09/26/2022 11:08 AM EST 1st-time treatment report. The patient is currently being seen for a non- oncology regimen. No navigator services are needed at this time. documented in this encounterSumma Health Akron Campus12-16-2022 Instructions* Patient Instructions* Flynn Julian PA-C - 09/12/2022 10:26 AM EST Call [phone] to schedule your Right shoulder MRI After you have the imaging appointment call [phone] to schedule a phone call appointment with me. This appointment should be at least 2 days after the imaging is done in order to review the results and coordinate care. (Example: If MRI is October 07, make an appointment with me on the or later to discuss results). documented in this encounterSumma Health Akron Campus12-16-2022 History of Present illness Narrative* Flynn Julian [...] results and radiologist's interpretation, available in the [facility] health record. Images were reviewed with [...] which included preparing to see the patient, [id number] patient care, completing clinical documentation, performing a medically appropriate examination, counseling and educating the patient/family/caregiver, ordering medications, tests, or p rocedures, and communicating results to the patient/family/caregiver. Flynn Julian PA-C, MPAS documented in this encounterSumma Health Akron Campus12-16-2022 History of Present illness Narrative* Noble Bourne [...] 12, 2022 9:28 AM documented in this encounterSumma Health Akron Campus12-08-2022 History of Present illness Narrative* Vazquez Page DO - 09/04/2022 12:19 PM EST Images from the original note were not included. [facility] [place] [facility] UR[facility] LOCATION: ESTABLISHED PATIENT PATIENT INFO: Sylvie Chiu 72 year old Chief Complaint: Prostate Cancer HPI 72 year old man with high-intermediate risk prostate cancer, [id number], Stage IVB, GG2, clinical Stage IIB [Samantha 3+4=7 (1 core), [place] 3+3=6 (9 cores) (10/13 cores+); prostate MRI [...] Prostate, left apex, biopsy: - Prostatic adenocarcinoma, [place] score 3+3=6, grade group 1, involving 1 of 1 core (1 mm, 25%). D. Prostate, left lateral base, biopsy: - Prostatic adenocarcinoma, [place] score 3+4=7, grade group 2, involving 1 of 1 core (6 mm, 85%). - [place] pattern 4 comprises approximately 10% of the carcinoma. - Small gland cribriform morphology is identified. - Atypical intraductal proliferation (AIP) is present. E. Prostate, left lateral mid, biopsy: - Prostatic adenocarcinoma, [place] score 3+3=6, grade group 1, involving 1 [...] right lateral apex, biopsy: - Prostatic adenocarcinoma, [place] score 3+3=6, grade group 1, involving 1 of 1 core (2 mm, 30%). Prostate Cancer Biopsy Summary Number of cores examined: 13 Number of cores positive: 10 Highest Grade Group: 2 Highest % of core involvement: 85 % Cribriform pattern 4: Present, small gland Intraductal carcinoma: Suspicious [employer] tumor block to use for additional studies: [...] 60.9 Lymph% (%) Date Value 10/04/2021 29.0 Lander% (%) Date Value 10/04/2021 6.7 Eosin% (%) Date Value 10/04/2021 2.4 Baso% (%) Date Value 10/04/2021 1.0 Abs Neut (ANC) (k/uL) Date Value 10/04/2021 4.06 Abs Lym (X10-3/UL) Date Value 03/22/2010 1.6 Abs Lander (k/uL) Date Value 10/04/2021 0.45 Abs Eosin [...] NM PET/CT PROSTATE WHOLE BODY IMAGING (Order [id number]) Patient Info Patient Name Sex Sylvie Chiu ([id number]) Male 1950 08/07/2022 10:44 AM - Radiology, [...] is recommended. MRI PROSTATE WO/W IVCON (Order [id number]) Patient Info Patient Name Sex Sylvie Dumont ([id number]) Male 1950 07/21/2022 11:06 AM - Radiology, [...] CT Scan: CT PELVIS W IVCON (Order [id number]) Patient Info Patient Name Sex Sylvie Dumont ([id number]) Male 1950 06/09/2022 4:32 PM - Radiology, Oru In Impression IMPRESSION: No acute process is seen. Sclerotic bone densities, as described, possibly bone islands, metastatic disease not excluded. Bone Scan: NM BONE WHOLE BODY (Order [id number]) Patient Info Patient Name Sylvie Buckley ([id number]) [...] Please supply patient with Full face mask, [employer]Pix[employer] VIP 7600. tamsulosin (FLOMAX) 0.4 mg Take [...] and possible bone lesions. Dr. Ordonez in [place] has met with patient. All studies reviewed. Decipher High Risk Options reviewed. Proceed to ADT + IMRT with Dr. Ordonez Obtain approval for Lupron. I spent 30 minutes in the visit, with more than 50% of the total ftta-my-lpzy time of the visit in counseling / coordination of care. Vazquez Page DO JYOTHI documented in this encounterSumma Health Akron Campus11-14-2022 History of Present illness Narrative* Rickie Agosto MD - 08/11/2022 3:42 PM EST HISTORY OF PRESENT ILLNESS: Sylvie Chiu is a 72 year old male recent dx prostate cancer, here todiscuss concurrent ADT with RT. He is still debating whether to have surgery or not. Reviewed his scans. CLINICAL IMPRESSION: [id number] prostate cancer, high risk on Decipher RECOMMENDATION/PLAN: [...] Please supply patient with Full face mask, [employer]Pix[employer] VIP 7600. REVIEW OF SYSTEMS: GENERAL: No fever, night sweats, weight loss or malaise. All other reviewed and negative other than HPI. PHYSICAL EXAMINATION: VITAL SIGNS: BP 144/76[right arm[ Pulse 73 Temp 98 Resp 16[room air at rest[ Ht 5' 10.945[verified with DH,FACULTY DEAN[ (1.80m) Wt 326 lb (147.9kg) SpO2 97% BMI 45.54 kg/(m^2). GENERAL APPEARANCE: Well appearing, in no acute distress, alert and oriented x3, well-hydrated, well nourished. I spent a total of 45 minutes on the date of the service which included preparing to see the patient, [id number] patient care, completing clinical documentation, obtaining and/or reviewing separately obtained history, counseling and educating the patient/family/caregiver, communicating with other HCPs (not separately reported), independently interpreting results (not separately reported), and communicating results to the patient/family/caregiver. Electronically Signed: Rickie Agosto MD August 11, 2022 3:42 PM documented in this encounterSumma Health Akron Campus11-14-2022 Nurse Note* Ros Cheng RN - 08/11/2022 2:14 PM EST Images from the original note were not included. Radiation Therapy - Nursing Note (Follow-up) PATIENT NAME: Sylvie Chiu PATIENT August 11, 2022 [facility] FACILITY[facility]LOCATION: [place] Reason for visit: Follow up to discuss treatment options. Subjective Data I am here to further discuss recommended treatment after the completion of all my scans. I just sawDr. Agosto and he said 2 years of the Lupron with radiation treatments. I am unsure of what to do. Additional Data Do you want to see a Art Preparator? No Difficulty performing or completing routine daily [...] by: Ros Cheng RN documented in this encounterSumma Health Akron Campus11-14-2022 History of Present illness Narrative* Hussein Ordonez MD - 08/11/2022 1:46 PM EST Images from the original note were not included. Radiation Oncology - Follow Up Note PATIENT NAME: Sylvie Chiu PATIENT DIAGNOSIS: 72 year old man with high-intermediate risk prostate cancer, [id number], Stage IVB, GG2, clinical Stage IIB [Samantha 3+4=7 (1 core), [place] 3+3=6 (9 cores) (10/13 cores+); prostate MRI [...] MANJU. Prostate biopsy on 05/08/22 showed adenocarcinoma, [place] 3+4=7 (1 core), Samantha 3+3=6 (9 cores) [...] supply patient with Full face mask, Santana [employer]ell[employer] VIP 7600. PHYSICAL EXAM: KPS: 80 General Appearance: Obese man. Alert and oriented. No acute distress. Rectal exam is deferred. ASSESSMENT/PLAN: 72 year old man with high-intermediate risk prostate cancer, [id number], Stage IVB,GG2, clinical Stage IIB [[place] 3+4=7 (1 core), [place] 3+3=6 (9 cores) (07/10 cores+); prostate MRI [...] by: Hussein Ordonez MD cc: Norma Davies ([facility]) [address] [place] [address] DO Rickie Dean MD documented in this encounterSumma Health Akron Campus11-10-2022 NoteHNO ID: [id number] Author: RT Ronen(R) Service: Radiology Author Type: [...] NM INJECT: PET/CT BODY SCAN. 10 mCi [id number]. No other medications given.. ADMINISTRATION TIME: 0758 JM PATIENT DISCHARGED TO: Ambulatory patient, left [facility] area. A Diagnostic radioactive procedure has taken place, with no further precautions necessary other than routine body substance precautions. More information regarding radiation safety can be found using this link: [email or web address] SIGNATURE: RT Ronen(R) PATIENT NAME: Sylvie Chiu DATE: August 07, 2022 TIME: 8:13 AM PAGER/CONTACT #:[facility]11-01-2022 NoteHNO ID: [id number] Author: Vazquez Page, DO Service: ? Author Type: Physician Type: Progress Notes Filed: 07/29/2022 1:57 PM Note Text: [facility] [place] [facility] LOCATION: [address] [place] [address] ESTABLISHED PATIENT PATIENT INFO: Sylvie R Cutlip [...] Prostate, left mid, biopsy: - Prostatic adenocarcinoma, [place] score 3+3=6, grade group 1, involving 1 of 1 core (4 mm, 65%). C. Prostate, left apex, biopsy: - Prostatic adenocarcinoma, Samantha score 3+3=6, grade group 1, involving 1 of 1 core (1 mm, 25%). D. Prostate, left lateral base, biopsy: - Prostatic adenocarcinoma, [place] score 3+4=7, grade group 2, involving 1 of 1 core (6 mm, 85%). - [place] pattern 4 comprises approximately 10% of the carcinoma. - Small gland cribriform morphology is identified. - Atypical intraductal proliferation (AIP) is present. E. Prostate, left lateral mid, biopsy: - Prostatic adenocarcinoma, [place] score 3+3=6, grade group 1, involving 1 of 1 core (2 mm, 50%). F. Prostate, left lateral apex, biopsy: - Prostatic adenocarcinoma, [place] score 3+3=6, grade group 1, involving 1 of 1 core (1 mm, 30%). G. Prostate, right base, biopsy: - Benign prostate tissue. H. Prostate, right mid, biopsy: - Prostatic adenocarcinoma, [place] score 3+3=6, grade group 1, involving 2 of 2 cores (1 mm, 30%; 1 mm, 20%) I. Prostate, right apex, biopsy: - Prostatic adenocarcinoma, [place] score 3+3=6, grade group 1, involving 1 of 1 core (3 mm, 50%). J. Prostate, right lateral base, biopsy: - Benign prostate tissue. K. Prostate, right lateral mid, biopsy: - Prostatic adenocarcinoma, [place] score 3+3=6, grade group 1, involving 1 of 1 core (1 mm, 10%). L.Prostate, right lateral apex, biopsy: - Prostatic adenocarcinoma, [place] score 3+3=6, grade group 1, involving 1 of 1 core (2 mm, 30%). Prostate Cancer Biopsy Summary Number of cores examined: 13 Number of cores positive: 10 Highest Grade Group: 2 Highest % of core involvement: 85 % Cribriform pattern 4: Present, small gland Intraductal carcinoma: Suspicious [employer] tumor block to use for additional studies: [...] 60.9 Lymph% (%) Date Value 10/04/2021 29.0 Lander% (%) Date Value 10/04/2021 6.7 Eosin% (%) Date Value 10/04/2021 2.4 Baso% (%) Date Value 10/04/2021 1.0 Abs Neut (ANC) (k/uL) Date Value 10/04/2021 4.06 Abs Lym (X10-3/UL) Date Value 03/22/2010 1.6 Abs Lander (k/uL) Date Value 10/04/2021 0.45 Abs Eosin [...] 11/21/2021 IMAGING: MRI PROSTATE WO/W IVCON (Order [id number]) Patient Info Patient Name Sex Sylvie Dumont ([id number]) Male 1950 07/21/2022 11:06 AM - Radiology, Oru In Impression IMPRESSION: 1. Large lesion seen left peripheral zone consistent with clinically significant prostate carcinoma (PIRADS 5). It bulges the capsule and compresses the adjacent neurovascular bundle. 2. Enlarged pelvic l (more content not included)...[facility] 07-29-2022 History of Present illness Narrative* Vazquez Page DO - 07/29/2022 1:39 PM EDT Images from the original note were not included. [facility] [place] [facility] LOCATION: [address] [place] [address] ESTABLISHED PATIENT PATIENT INFO: Sylvie Chiu 72 [...] Prostate, left apex, biopsy: - Prostatic adenocarcinoma, [place] score 3+3=6, grade group 1, involving 1 of 1 core (1 mm, 25%). D. Prostate, left lateral base, biopsy: - Prostatic adenocarcinoma, [place] score 3+4=7, grade group 2, involving 1 of 1 core (6 mm, 85%). - [place] pattern 4 comprises approximately 10% of the [...] Prostate, right apex, biopsy: - Prostatic adenocarcinoma, [place] score 3+3=6, grade group 1, involving 1 [...] 4: Present, small gland Intraductal carcinoma: Suspicious [employer] tumor block to use for additional studies: [...] 60.9 Lymph% (%) Date Value 10/04/2021 29.0 Lander% (%) Date Value 10/04/2021 6.7 Eosin% (%) Date Value 10/04/2021 2.4 Baso% (%) Date Value 10/04/2021 1.0 Abs Neut (ANC) (k/uL) Date Value 10/04/2021 4.06 Abs Lym (X10-3/UL) Date Value 03/22/2010 1.6 Abs Lander (k/uL) Date Value 10/04/2021 0.45 Abs Eosin [...] 11/21/2021 IMAGING: MRI PROSTATE WO/W IVCON (Order [id number]) Patient Info Patient Name Sex Sylvie Dumont ([id number]) Male 1950 07/21/2022 11:06 AM - Radiology, [...] CT Scan: CT PELVIS W IVCON (Order [id number]) Patient Info Patient Name Sex Sylvie Dumont ([id number]) Male 1950 06/09/2022 4:32 PM - Radiology, Oru In Impression IMPRESSION: No acute process is seen. Sclerotic bone densities, as described, possibly bone islands, metastatic disease not excluded. Bone Scan: NM BONE WHOLE BODY (Order [id number]) Patient Info Patient Name Sylvie Buckley ([id number]) [...] Please supply patient with Full face mask, [employer] VIP [id number]. Does the patient take any [...] EXAM: Exam NOT Indicated PVR: NA IMPRESSION/PLAN: [place] 7/6 Prostate Cancer Pathology reviewed. PSA 5.5 CT and bone scan negative. MRI prostate now with LAD and possible bone lesions. Dr. Ordonez in [place] has met with patient and PSMA PET ordered and pending. Decipher High Risk Will talk to patient after PSMA PET. Options reviewed. I spent 30 minutes in the visit, with more than 50% of the total kzsg-pa-lvwd time of the visit in counseling / coordination of care. Vazquez Page DO MBA documented in this encounterSumma Health Akron Campus10-20-2022 NoteHNO ID: [id number] Author: RT Jamari(R) Service: Radiology Author Type: [...] Chiu DATE: July 17, 2022 TIME: 9:31 [facility]10-17-2022 Miscellaneous Notes* Telephone Encounter - Kamilah Morales RN - 07/14/2022 4:08 PM EDT JACK 06/19/[address] Page JACK 11/07/[address] Lancaster NOV 07/29/[address] Page documented in this encounterSumma Health Akron Campus09-27-2022 Nurse Note* Ros Cheng RN - 06/24/2022 1:38 PM EDT Images from the original note were not included. Radiation Therapy - Nursing Note (Consult) PATIENT NAME: Sylvie Chiu PATIENT June 24, 2022 [facility] FACILITY/LOCATION: [place] Chief Complaint: Prostate cancer Reason for visit: Consult. Referring physician: Internal provider Dr. Page Subjective Data: I have a lot of questions about the treatment types. Additional Data Do you want to see a Art Preparator? No Are you interested in information about [...] home? 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 Yes - A person with a Durable Power of Multimedia Designer for Healthcare (DPOA-H) has been appointed - [...] by: Ros Cheng RN documented in this encounterSumma Health Akron Campus09-27-2022 History of Present illness Narrative* Hussein Ordonez MD - 06/24/2022 1:23 PM EDT Radiation Oncology - Prostate Cancer New Patient/Consult Note PATIENT NAME: Sylvie Chiu PATIENT REQUESTING PROVIDER: Vazquez Page DO DIAGNOSIS: 72 year old man with high-intermediate risk prostate cancer, [id number], GG2, clinical Stage IIB [[place] 3+4=7 (1 core), Samantha 3+3=6 (9 cores) [...] 05/08/22 showed adenocarcinoma, Samantha 3+7=7 (1 core), [place] 3+3=6 (9 cores) (10/13 cores+). CT of [...] supply patient with Full face mask, [employer] VIP [id number]. iv contrast (will be provided [...] week Drug use: No Occupation: Retired Residence: [place], [place] REVIEW OF SYSTEMS: GENERAL: Negative for [...] Pain of Right Knee Bmi 40.0-44.9, Adult ([facility]) ASSESSMENT/PLAN: 72 year old man with high-intermediate risk prostate cancer, lG5aH6N3, GG2, clinical Stage IIB [[place] 3+4=7 (1 core), Samantha 3+3=6 (9 cores) [...] depending on Decipher test. Possible enrollment to [facility] will be considered (depending on eligibility and interest). Approximately 60 minutes were spent with the patient, >50% of which was spent on treatment counseling. Signed by: Hussein Ordonez MD documented in this encounterSumma Health Akron Campus09-22-2022 History of Present illness Narrative* Vazquez Page DO - 06/19/2022 9:35 AM EDT Images from the original note were not included. [facility] [place] [facility] LOCATION: [address] [place] [address] ESTABLISHED PATIENT PATIENT INFO: Sylvie Chiu 72 [...] Prostate, left apex, biopsy: - Prostatic adenocarcinoma, [place] score 3+3=6, grade group 1, involving 1 [...] left lateral mid, biopsy: - Prostatic adenocarcinoma, [place] score 3+3=6, grade group 1, involving 1 of 1 core (2 mm, 50%). F. Prostate, left lateral apex, biopsy: - Prostatic adenocarcinoma, Samantha score 3+3=6, grade group 1, involving 1 of 1 core (1 mm, 30%). G. Prostate, right base, biopsy: - Benign prostate tissue. H. Prostate, right mid, biopsy: - Prostatic adenocarcinoma, [place] score 3+3=6, grade group 1, involving 2 of 2 cores (1 mm, 30%; 1 mm, 20%) I. Prostate, right apex, biopsy: - Prostatic adenocarcinoma, [place] score 3+3=6, grade group 1, involving 1 of 1 core (3 mm, 50%). J. Prostate, right lateral base, biopsy: - Benign prostate tissue. K. Prostate, right lateral mid, biopsy: - Prostatic adenocarcinoma, [place] score 3+3=6, grade group 1, involving 1 [...] 4: Present, small gland Intraductal carcinoma: Suspicious [employer] tumor block to use for additional studies: [...] 60.9 Lymph% (%) Date Value 10/04/2021 29.0 Lander% (%) Date Value 10/04/2021 6.7 Eosin% (%) Date Value 10/04/2021 2.4 Baso% (%) Date Value 10/04/2021 1.0 Abs Neut (ANC) (k/uL) Date Value 10/04/2021 4.06 Abs Lym (X10-3/UL) Date Value 03/22/2010 1.6 Abs Lander (k/uL) Date Value 10/04/2021 0.45 Abs Eosin [...] CT Scan: CT PELVIS W IVCON (Order [id number]) Patient Info Patient Name Sex Sylvie Dumont ([id number]) Male 1950 06/09/2022 4:32 PM - Radiology, Oru In Impression IMPRESSION: No acute process is seen. Sclerotic bone densities, as described, possibly bone islands, metastatic disease not excluded. Bone Scan: NM BONE WHOLE BODY (Order [id number]) Patient Info Patient Name Sex Sylvie Dumont [...] EXAM: Exam NOT Indicated PVR: NA IMPRESSION/PLAN: [place] 7/6 Prostate Cancer Pathology reviewed. PSA 5.5 CT and bone scan negative. Options reviewed. Will meet with Dr. Ordonez in [place] Considering surveillance, check Decipher and MRI prostate. I spent 30 minutes in the visit, with more than 50% of the total lklf-vh-ojks time of the visit in counseling / coordination of care. Vazquez Page DO JYOTHI documented in this encounterSumma Health Akron Campus09-15-2022 Miscellaneous Notes* Telephone Encounter - Vazquez Page DO - 06/12/2022 11:02 AM EDT There is no cancer on the bone scan or CT scan. We can move appointment up to discuss options if hewants documented in this encounterSumma Health Akron Campus09-12-2022 History of Present illness Narrative* CURT Trivedi [...] 9:23 AM PAGER/CONTACT #: documented in this encounterSumma Health Akron Campus08-29-2022 Miscellaneous Notes* Telephone Encounter - Vazquez Page DO - 05/26/2022 6:42 PM EDT This is all presumed stage 1 until we receive results from the bone scan and CT scan. documented in this encounterSumma Health Akron Campus08-22-2022 Miscellaneous Notes* Telephone Encounter - Ann Aguirre [...] then appt with me documented in this encounterSumma Health Akron Campus06-03-2022 Miscellaneous Notes* Telephone Encounter - Simona Bermudez - 02/28/2022 9:53 AM EDT Patient phones requesting refills as follows: PATIENT STATES HE IS OUT OF MEDICATION FOR THE WEEKEND. Pending Prescriptions Disp Refills TAMSULOSIN 0.4 MG CAPSULE 30 capsule 2 Sig: Take 1 capsule by mouth once daily. 30 minutes after meal DAVID: No Please review and advise. Simona Bermudez documented in this encounterSumma Health Akron Campus03-29-2022 History of Present illness Narrative* James Barnes APRN.[facility] - 12/24/2021 8:56 AM EDT Associated Order(s): [...] knee joint Informed Consent Consent Obtained: Verbal [place] Protocol A moment to CARE was completed. [...] 24, 2021 8:59 AM documented in this encounterSumma Health Akron Campus03-29-2022 History of Present illness Narrative* RICARDA Dc [...] 24, 2021 7:35 AM documented in this encounterSumma Health Akron Campus09-11-2018 History of Past illness Narrative* Problem Noted Date Resolved Date Primary localized osteoarthritis of right knee 0 06/08/2018 07/01/2018 Overview: Added automatically from request for surgery [id number] Pneumonia 10/31/2016 06/23/2018 Fever 10/29/2016 11/02/2016 Hemicrania [...] of this encounter (statuses as of 12/24/2021) [facility]09-11-[facility] of Past illness Narrative* Problem Noted Date Resolved Date Primary localized osteoarthritis of right knee 0 06/08/2018 07/01/2018 Overview: Added automatically from request for surgery [id number] Pneumonia 10/31/2016 06/23/2018 Fever 10/29/2016 11/02/2016 Hemicrania [...] of this encounter (statuses as of 12/25/2021) [facility] of Past illness Narrative* Problem Noted Date Resolved Date Primary localized osteoarthritis of right knee 0 06/08/2018 07/01/2018 Overview: Added automatically from request for surgery [id number] Pneumonia 10/31/2016 06/23/2018 Fever 10/29/2016 11/02/2016 Hemicrania [...] of this encounter (statuses as of 03/04/2022) [facility] of [facility] illness Narrative* Problem Noted Date Resolved Date Primary localized osteoarthritis of right knee 0 06/08/2018 07/01/2018 Overview: Added automatically from request for surgery [id number] Pneumonia 10/31/2016 06/23/2018 Fever 10/29/2016 11/02/2016 Hemicrania [...] of this encounter (statuses as of 05/19/2022) [facility] Narrative* Problem Noted Date Resolved Date Primary localized osteoarthritis of right knee 0 06/08/2018 07/01/2018 Overview: Added automatically from request for surgery [id number] Pneumonia 10/31/2016 06/23/2018 Fever 10/29/2016 11/02/2016 Hemicrania [...] of this encounter (statuses as of 05/26/2022) [facility] Narrative* Problem Noted Date Resolved Date Primary localized osteoarthritis of right knee 0 06/08/2018 07/01/2018 Overview: Added automatically from request for surgery [id number] Pneumonia 10/31/2016 06/23/2018 Fever 10/29/2016 11/02/2016 Hemicrania [...] of this encounter (statuses as of 06/10/2022) [facility] Narrative* Problem Noted Date Resolved Date Primary localized osteoarthritis of right knee 0 06/08/2018 07/01/2018 Overview: Added automatically from request for surgery [id number] Pneumonia 10/31/2016 06/23/2018 Fever 10/29/2016 11/02/2016 Hemicrania [...] of this encounter (statuses as of 06/10/2022) [facility] Narrative* Problem Noted Date Resolved Date Primary localized osteoarthritis of right knee 0 06/08/2018 07/01/2018 Overview: Added automatically from request for surgery [id number] Pneumonia 10/31/2016 06/23/2018 Fever 10/29/2016 11/02/2016 Hemicrania [...] of this encounter (statuses as of 06/10/2022) [facility] Narrative* Problem Noted Date Resolved Date Primary localized osteoarthritis of right knee 0 06/08/2018 07/01/2018 Overview: Added automatically from request for surgery [id number] Pneumonia 10/31/2016 06/23/2018 Fever 10/29/2016 11/02/2016 Hemicrania [...] of this encounter (statuses as of 06/12/2022) [facility] Narrative* Problem Noted Date Resolved Date Primary localized osteoarthritis of right knee 0 06/08/2018 07/01/2018 Overview: Added automatically from request for surgery [id number] Pneumonia 10/31/2016 06/23/2018 Fever 10/29/2016 11/02/2016 Hemicrania [...] of this encounter (statuses as of 06/19/2022) [facility] Narrative* Problem Noted Date Resolved Date Primary localized osteoarthritis of right knee 0 06/08/2018 07/01/2018 Overview: Added automatically from request for surgery [id number] Pneumonia 10/31/2016 06/23/2018 Fever 10/29/2016 11/02/2016 Hemicrania [...] of this encounter (statuses as of 06/26/2022) [facility] Narrative* Problem Noted Date Resolved Date Primary localized osteoarthritis of right knee 0 06/08/2018 07/01/2018 Overview: Added automatically from request for surgery [id number] Pneumonia 10/31/2016 06/23/2018 Fever 10/29/2016 11/02/2016 Hemicrania [...] of this encounter (statuses as of 07/14/2022) [facility]* Problem Noted Date Resolved Date Primary localized osteoarthritis of right knee 0 06/08/2018 07/01/2018 Overview: Added automatically from request for surgery [id number] Pneumonia 10/31/2016 06/23/2018 Fever 10/29/2016 11/02/2016 Hemicrania [...] of this encounter (statuses as of 07/29/2022) [facility]* Problem Noted Date Resolved Date Primary localized osteoarthritis of right knee 0 06/08/2018 07/01/2018 Overview: Added automatically from request for surgery [id number] Pneumonia 10/31/2016 06/23/2018 Fever 10/29/2016 11/02/2016 Hemicrania [...] of this encounter (statuses as of 08/08/2022) [facility]* Problem Noted Date Resolved Date Primary localized osteoarthritis of right knee 0 06/08/2018 07/01/2018 Overview: Added automatically from request for surgery [id number] Pneumonia 10/31/2016 06/23/2018 Fever 10/29/2016 11/02/2016 Hemicrania [...] of this encounter (statuses as of 08/12/2022) [facility]* Problem Noted Date Resolved Date Primary localized osteoarthritis of right knee 0 06/08/2018 07/01/2018 Overview: Added automatically from request for surgery [id number] Pneumonia 10/31/2016 06/23/2018 Fever 10/29/2016 11/02/2016 Hemicrania [...] of this encounter (statuses as of 08/13/2022) [facility]* Problem Noted Date Resolved Date Primary localized osteoarthritis of right knee 0 06/08/2018 07/01/2018 Overview: Added automatically from request for surgery [id number] Pneumonia 10/31/2016 06/23/2018 Fever 10/29/2016 11/02/2016 Hemicrania [...] of this encounter (statuses as of 09/04/2022) [facility]* Problem Noted Date Resolved Date Primary localized osteoarthritis of right knee 0 06/08/2018 07/01/2018 Overview: Added automatically from request for surgery [id number] Pneumonia 10/31/2016 06/23/2018 Fever 10/29/2016 11/02/2016 Hemicrania [...] of this encounter (statuses as of 09/09/2022) [facility]* Problem Noted Date Resolved Date Primary localized osteoarthritis of right knee 0 06/08/2018 07/01/2018 Overview: Added automatically from request for surgery [id number] Pneumonia 10/31/2016 06/23/2018 Fever 10/29/2016 11/02/2016 Hemicrania [...] of this encounter (statuses as of 09/12/2022) [facility]* Problem Noted Date Resolved Date Primary localized osteoarthritis of right knee 0 06/08/2018 07/01/2018 Overview: Added automatically from request for surgery [id number] Pneumonia 10/31/2016 06/23/2018 Fever 10/29/2016 11/02/2016 Hemicrania [...] of this encounter (statuses as of 10/01/2022) [facility]* Problem Noted Date Resolved Date Primary localized osteoarthritis of right knee 0 06/08/2018 07/01/2018 Overview: Added automatically from request for surgery [id number] Pneumonia 10/31/2016 06/23/2018 Fever 10/29/2016 11/02/2016 Hemicrania [...] of this encounter (statuses as of 10/23/2022) [facility]* Problem Noted Date Resolved Date Primary localized osteoarthritis of right knee 0 06/08/2018 07/01/2018 Overview: Added automatically from request for surgery [id number] Pneumonia 10/31/2016 06/23/2018 Fever 10/29/2016 11/02/2016 Hemicrania [...] of this encounter (statuses as of 11/01/2022) [facility]* Problem Noted Date Resolved Date Primary localized osteoarthritis of right knee 0 06/08/2018 07/01/2018 Overview: Added automatically from request for surgery [id number] Pneumonia 10/31/2016 06/23/2018 Fever 10/29/2016 11/02/2016 Hemicrania [...] of this encounter (statuses as of 11/07/2022) [facility]* Problem Noted Date Resolved Date Primary localized osteoarthritis of right knee 0 06/08/2018 07/01/2018 Overview: Added automatically from request for surgery [id number] Pneumonia 10/31/2016 06/23/2018 Fever 10/29/2016 11/02/2016 Hemicrania [...] of this encounter (statuses as of 11/14/2022) [facility]* Problem Noted Date Resolved Date Primary localized osteoarthritis of right knee 0 06/08/2018 07/01/2018 Overview: Added automatically from request for surgery [id number] Pneumonia 10/31/2016 06/23/2018 Fever 10/29/2016 11/02/2016 Hemicrania [...] of this encounter (statuses as of 11/19/2022) [facility]* Problem Noted Date Resolved Date Primary localized osteoarthritis of right knee 0 06/08/2018 07/01/2018 Overview: Added automatically from request for surgery [id number] Pneumonia 10/31/2016 06/23/2018 Fever 10/29/2016 11/02/2016 Hemicrania [...] of this encounter (statuses as of 11/26/2022) [facility]* Problem Noted Date Resolved Date Primary localized osteoarthritis of right knee 0 06/08/2018 07/01/2018 Overview: Added automatically from request for surgery [id number] Pneumonia 10/31/2016 06/23/2018 Fever 10/29/2016 11/02/2016 Hemicrania [...] of this encounter (statuses as of 12/02/2022) [facility]* Problem Noted Date Resolved Date Primary localized osteoarthritis of right knee 0 06/08/2018 07/01/2018 Overview: Added automatically from request for surgery [id number] Pneumonia 10/31/2016 06/23/2018 Fever 10/29/2016 11/02/2016 Hemicrania [...] of this encounter (statuses as of 12/02/2022) [facility]* Problem Noted Date Resolved Date Primary localized osteoarthritis of right knee 0 06/08/2018 07/01/2018 Overview: Added automatically from request for surgery [id number] Pneumonia 10/31/2016 06/23/2018 Fever 10/29/2016 11/02/2016 Hemicrania [...] of this encounter (statuses as of 12/03/2022) [facility]* Problem Noted Date Resolved Date Primary localized osteoarthritis of right knee 0 06/08/2018 07/01/2018 Overview: Added automatically from request for surgery [id number] Pneumonia 10/31/2016 06/23/2018 Fever 10/29/2016 11/02/2016 Hemicrania [...] of this encounter (statuses as of 12/09/2022) [facility]* Problem Noted Date Resolved Date Primary localized osteoarthritis of right knee 0 06/08/2018 07/01/2018 Overview: Added automatically from request for surgery [id number] Pneumonia 10/31/2016 06/23/2018 Fever 10/29/2016 11/02/2016 Hemicrania [...] of this encounter (statuses as of 12/09/2022) [facility]* Problem Noted Date Resolved Date Primary localized osteoarthritis of right knee 0 06/08/2018 07/01/2018 Overview: Added automatically from request for surgery [id number] Pneumonia 10/31/2016 06/23/2018 Fever 10/29/2016 11/02/2016 Hemicrania [...] of this encounter (statuses as of 12/11/2022) [facility] History of Past illness Narrative* Problem Noted Date Resolved Date Primary localized osteoarthritis of right knee 0 06/08/2018 07/01/2018 Overview: Added automatically from request for surgery [id number] Pneumonia 10/31/2016 06/23/2018 Fever 10/29/2016 11/02/2016 Hemicrania [...] of this encounter (statuses as of 12/22/2022) [facility] History of Past illness Narrative* Problem Noted Date Resolved Date Primary localized osteoarthritis of right knee 0 06/08/2018 07/01/2018 Overview: Added automatically from request for surgery [id number] Pneumonia 10/31/2016 06/23/2018 Fever 10/29/2016 11/02/2016 Hemicrania [...] of this encounter (statuses as of 12/24/2022) [facility] History of Past illness Narrative* Problem Noted Date Resolved Date Primary localized osteoarthritis of right knee 0 06/08/2018 07/01/2018 Overview: Added automatically from request for surgery [id number] Pneumonia 10/31/2016 06/23/2018 Fever 10/29/2016 11/02/2016 Hemicrania [...] of this encounter (statuses as of 01/13/2023) [facility] History of Past illness Narrative* Problem Noted Date Resolved Date Primary localized osteoarthritis of right knee 0 06/08/2018 07/01/2018 Overview: Added automatically from request for surgery [id number] Pneumonia 10/31/2016 06/23/2018 Fever 10/29/2016 11/02/2016 Hemicrania [...] of this encounter (statuses as of 01/23/2023) [facility] History of Past illness Narrative* Problem Noted Date Resolved Date Primary localized osteoarthritis of right knee 0 06/08/2018 07/01/2018 Overview: Added automatically from request for surgery [id number] Pneumonia 10/31/2016 06/23/2018 Fever 10/29/2016 11/02/2016 Hemicrania [...] of this encounter (statuses as of 01/30/2023) [facility] of Past illness Narrative* Problem Noted Date Resolved Date Primary localized osteoarthritis of right knee 0 06/08/2018 07/01/2018 Overview: Added automatically from request for surgery [id number] Pneumonia 10/31/2016 06/23/2018 Fever 10/29/2016 11/02/2016 Hemicrania [...] of this encounter (statuses as of 02/09/2023) [facility] of Past illness Narrative* Problem Noted Date Resolved Date Primary localized osteoarthritis of right knee 0 06/08/2018 07/01/2018 Overview: Added automatically from request for surgery [id number] Pneumonia 10/31/2016 06/23/2018 Fever 10/29/2016 11/02/2016 Hemicrania [...] of this encounter (statuses as of 03/05/2023) [facility] of Past illness Narrative* Problem Noted Date Resolved Date Primary localized osteoarthritis of right knee 0 06/08/2018 07/01/2018 Overview: Added automatically from request for surgery [id number] Pneumonia 10/31/2016 06/23/2018 Fever 10/29/2016 11/02/2016 Hemicrania [...] of this encounter (statuses as of 03/13/2023) [facility] of Past illness Narrative* Problem Noted Date Diagnosed Date Resolved Date Primary localized osteoarthr itis of right knee 06/08/2018 07/01/2018 Overview: Added automatically from request for surgery [id number] Pneumonia 10/31/2016 06/23/2018 Fever 10/29/2016 11/02/2016 Hemicrania [...] of this encounter (statuses as of 04/10/2023) [facility] of Past illness Narrative* Problem Noted Date Diagnosed Date Resolved Date Primary localized osteoarthr itis of right knee 06/08/2018 07/01/2018 Overview: Added automatically from request for surgery [id number] Pneumonia 10/31/2016 06/23/2018 Fever 10/29/2016 11/02/2016 Hemicrania [...] of this encounter (statuses as of 06/16/2023) [facility] Past illness Narrative* Problem Noted Date Diagnosed Date Resolved Date Primary localized osteoarthr itis of right knee 06/08/2018 07/01/2018 Overview: Added automatically from request for surgery [id number] Pneumonia 10/31/2016 06/23/2018 Fever 10/29/2016 11/02/2016 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 11/14/19 16 Atypical facial pain 05/31/2015 016 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2015 Trigeminal neuralgia of right side of face 05/31/2015 11/14/2015 Follow-up examination, [facility] other surgery 12/16/2007 11/14/2015 Disorders of bursae and tend ons in shoulder region, unspecified 07/05/2007 11/14/2015 Pain in joint, shoulder region 07/05/2007 11/14/2015 documented as of this encounter (statuses as of 07/09/2023) [facility] History of Past illness Narrative* Problem Noted Date Diagnosed Date Resolved Date Primary localized osteoarthr itis of right knee 06/08/2018 07/01/2018 Overview: Added automatically from request for surgery [id number] Pneumonia 10/31/2016 06/23/2018 Fever 10/29/2016 11/02/2016 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 11/14/19 16 Atypical facial pain 05/31/2015 016 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2015 Trigeminal neuralgia of right side of face 05/31/2015 11/14/2015 Follow-up examination, [facility] other surgery 12/16/2007 11/14/2015 Disorders of bursae and tend ons in shoulder region, unspecified 07/05/2007 11/14/2015 Pain in joint, shoulder region 07/05/2007 11/14/2015 documented as of this encounter (statuses as of 07/21/2023) [facility] of Past illness Narrative* Problem Noted Date Diagnosed Date Resolved Date Primary localized osteoarthr itis of right knee 06/08/2018 07/01/2018 Overview: Added automatically from request for surgery [id number] Pneumonia 10/31/2016 06/23/2018 Fever 10/29/2016 11/02/2016 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 11/14/19 16 Atypical facial pain 05/31/2015 016 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 Trigeminal neuralgia of right side of face 05/31/2015 11/14/2015 [facility] 12/16/2007 11/14/2015 Disorders of bursae and tend ons in shoulder region, unspecified 07/05/2007 11/14/2015 Pain in joint, shoulder region 07/05/2007 11/14/2015 documented as of this encounter (statuses as of 07/22/2023) [facility] History of Past illness Narrative* Problem Noted Date Diagnosed Date Resolved Date Primary localized osteoarthr itis of right knee 06/08/2018 07/01/2018 Overview: Added automatically from request for surgery [id number] Pneumonia 10/31/2016 06/23/2018 Fever 10/29/2016 11/02/2016 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 11/14/19 16 Atypical facial pain 05/31/2015 016 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2015 Trigeminal neuralgia of right side of face 05/31/2015 11/14/2015 [facility] 12/16/2007 11/14/2015 Disorders of bursae and tend ons in shoulder region, unspecified 07/05/2007 11/14/2015 Pain in joint, shoulder region 07/05/2007 11/14/2015 documented as of this encounter (statuses as of 12/15/2023) [facility] History of Past illness Narrative* Problem Noted Date Diagnosed Date Resolved Date Primary localized osteoarthr itis of right knee 06/08/2018 07/01/2018 Overview: Added automatically from request for surgery [id number] Pneumonia 10/31/2016 06/23/2018 Fever 10/29/2016 11/02/2016 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 11/14/19 16 Atypical facial pain 05/31/2015 016 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2015 Trigeminal neuralgia of right side of face 05/31/2015 11/14/2015 [facility] 12/16/2007 11/14/2015 Disorders of bursae and tend ons in shoulder region, unspecified 07/05/2007 11/14/2015 Pain in joint, shoulder region 07/05/2007 11/14/2015 documented as of this encounter (statuses as of 12/15/2023) [facility] History of Past illness Narrative* Problem Noted Date Diagnosed Date Resolved Date Primary localized osteoarthr itis of right knee 06/08/2018 07/01/2018 Overview: Added automatically from request for surgery [id number] Pneumonia 10/31/2016 06/23/2018 Fever 10/29/2016 11/02/2016 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 11/14/19 16 Atypical facial pain 05/31/2015 016 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2015 Trigeminal neuralgia of right side of face 05/31/2015 11/14/2015 Follow-up examination, [facility] other surgery 12/16/2007 11/14/2015 Disorders of bursae and tend ons in shoulder region, unspecified 07/05/2007 11/14/2015 Pain in joint, shoulder region 07/05/2007 11/14/2015 documented as of this encounter (statuses as of 12/17/2023) [facility] of Past illness Narrative* Problem Noted Date Diagnosed Date Resolved Date Primary localized osteoarthr itis of right knee 06/08/2018 07/01/2018 Overview: Added automatically from request for surgery [id number] Pneumonia 10/31/2016 06/23/2018 Fever 10/29/2016 11/02/2016 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 11/14/19 16 Atypical facial pain 05/31/2015 016 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 Trigeminal neuralgia of right side of face 05/31/2015 11/14/2015 Follow-up examination, [facility] other surgery 12/16/2007 11/14/2015 Disorders of bursae and tend ons in shoulder region, unspecified 07/05/2007 11/14/2015 Pain in joint, shoulder region 07/05/2007 11/14/2015 documented as of this encounter (statuses as of 12/22/2023) [facility] History of Past illness Narrative* Problem Noted Date Diagnosed Date Resolved Date Primary localized osteoarthr itis of right knee 06/08/2018 07/01/2018 Overview: Added automatically from request for surgery [id number] Pneumonia 10/31/2016 06/23/2018 Fever 10/29/2016 11/02/2016 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 11/14/19 16 Atypical facial pain 05/31/2015 016 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2015 Trigeminal neuralgia of right side of face 05/31/2015 11/14/2015 Follow-up examination, [facility] other surgery 12/16/2007 11/14/2015 Disorders of bursae and tend ons in shoulder region, unspecified 07/05/2007 11/14/2015 Pain in joint, shoulder region 07/05/2007 11/14/2015 documented as of this encounter (statuses as of 01/12/2024) [facility] History of Past illness Narrative* Problem Noted Date Diagnosed Date Resolved Date Primary localized osteoarthr itis of right knee 06/08/2018 07/01/2018 Overview: Added automatically from request for surgery [id number] Pneumonia 10/31/2016 06/23/2018 Fever 10/29/2016 11/02/2016 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 11/14/19 16 Atypical facial pain 05/31/2015 016 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2015 Trigeminal neuralgia of right side of face 05/31/2015 11/14/2015 Follow-up examination, [facility] other surgery 12/16/2007 11/14/2015 Disorders of bursae and tend ons in shoulder region, unspecified 07/05/2007 11/14/2015 Pain in joint, shoulder region 07/05/2007 11/14/2015 documented as of this encounter (statuses as of 01/12/2024) [facility] Diagnosis Primary osteoarthritis of left knee- Primary Primary localized osteoarthrosis, lower leg [facility] Pain Generalized pain [facility] Diagnosis Onset Date Resolution Status Bilateral hand swelling acut e Bronchitis acute Elevated PSA acute Maxillary sinusitis, acute a cute Osteoarthritis acute Hypertension chronic [facility] Work Phone: Evaluation note* Diagnosis Prostate cancer (HCC)- Primary Malignant neoplasm of prostate [facility] Diagnosis Prostate cancer (HCC) Malignant neoplasm of prostate [facility] Prostate cancer (HCC)- Primary Malignant neoplasm of prostate Benign prostatic hyperplasia with incomplete bladder emptying [facility] Testicular pain, left- Primary Unspecified disorder of male genital organs Prostate cancer (HCC) Malignant neoplasm of prostate [facility] Prostate cancer (HCC)- Primary Malignant neoplasm of prostate Benign prostatic hyperplasia with incomplete bladder emptying [facility] Diagnosis Prostate cancer (HCC) Malignant neoplasm of prostate [facility] Diagnosis Prostate cancer (HCC)- Primary Malignant neoplasm of prostate [facility] Diagnosis Prostate cancer (HCC)- Primary Malignant neoplasm of prostate Benign prostatic hyperplasia with incomplete bladder emptying [facility] Diagnosis Prostate cancer (HCC)- Primary Malignant neoplasm of prostate [facility] Diagnosis Dysfunction of right rotator cuff- Primary [facility] Diagnosis Prostate cancer (HCC)- Primary Malignant neoplasm of prostate [facility] Diagnosis Prostate cancer (HCC)- Primary Malignant neoplasm of prostate [facility] Diagnosis Prostate cancer (HCC)- Primary Malignant neoplasm of prostate [facility] Diagnosis Leg swelling- Primary Swelling of limb Prostate cancer (HCC)- Primary Malignant neoplasm of prostate [facility]* Diagnosis Left leg swelling Swelling of limb Prostate cancer (HCC)- Primary Malignant neoplasm of prostate [facility]* Diagnosis Prostate cancer (HCC)- Primary Malignant neoplasm of prostate [facility]* Diagnosis Prostate cancer (HCC)- Primary Malignant neoplasm of prostate [facility]* Diagnosis Prostate cancer (HCC)- Primary Malignant neoplasm of prostate Encounter for monitoring Lupron therapy Encounter for therapeutic drug monitoring Hot flash due to medication [facility] Diagnosis Prostate cancer (HCC)- Primary Malignant neoplasm of prostate [facility]* Diagnosis Prostate cancer (HCC)- Primary Malignant neoplasm of prostate [facility]* Diagnosis Left hand pain- Primary Pain in limb [facility]* Diagnosis Primary osteoarthritis of left knee- Primary Primary localized osteoarthrosis, lower leg [facility]* Diagnosis Thumb pain, right- Primary Primary osteoarthritis of first carpometacarpal joint of left hand Primary localized osteoarthrosis, hand Peripheral vascular disease (HCC) Peripheral vascular disease, unspecified BMI 40.0-44.9, adult (HCC) Body Mass Index 40.0-44.9, adult documented in this encounter [facility]* Diagnosis Prostate cancer (HCC)- Primary Malignant neoplasm of prostate Encounter for monitoring Lupron therapy Encounter for therapeutic drug monitoring Diarrhea, unspecified type Hypercalcemia documented in this [facility]* Diagnosis Onset Date Resolution Status Adverse effect of correct me dicinal substance properly administered acute Edema of both lower extremities acute 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 Osteoarthritis acute Elevated PSA acute GERD acute Pain, joint, multiple sites acute Hypertension chronic [facility] Work Phone: Evaluation note* Diagnosis 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 Primary osteoarthritis of left knee Primary localized osteoarthrosis, lower leg [facility]* Diagnosis Encounter for follow-up surveillance of prostate cancer- Primary Unspecified follow-up examination documented in this encounter [facility] note* Diagnosis Prostate cancer (HCC) Malignant neoplasm [...] Swelling of limb [facility] Diagnosis Pain Generalized pain [facility] Diagnosis 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 Radiation cystitis Irradiation cystitis Radiation injury of bowel, sequela [facility] Diagnosis Irradiation cystitis with hematuria- Primary Irradiation cystitis Other specified disorders of the skin and subcutaneous tissue related to radiation [facility] Diagnosis Irradiation cystitis with hematuria- Primary Irradiation cystitis Other specified disorders of the skin and subcutaneous tissue related to radiation [facility] Diagnosis Irradiation cystitis with hematuria- Primary Irradiation cystitis Other specified disorders of the skin and subcutaneous tissue related to radiation [facility] Diagnosis Arthritis of carpometacarpal (CMC) joint of left thumb- Primary [facility] Diagnosis Irradiation cystitis with hematuria- Primary Irradiation cystitis Other specified disorders of the skin and subcutaneous tissue related to radiation [facility] Diagnosis Irradiation cystitis with hematuria- Primary Irradiation cystitis Other specified disorders of the skin and subcutaneous tissue related to radiation [facility] Diagnosis Irradiation cystitis with hematuria- Primary Irradiation cystitis Other specified disorders of the skin and subcutaneous tissue related to radiation [facility] Diagnosis Irradiation cystitis with hematuria- Primary Irradiation cystitis Other specified disorders of the skin and subcutaneous tissue related to radiation [facility] Diagnosis Arthritis of carpometacarpal (CMC) joint of left thumb- Primary Right hand pain Pain in limb [facility] Diagnosis Right hand pain Pain in limb [facility] Diagnosis Irradiation cystitis with hematuria- Primary Irradiation cystitis Other specified disorders of the skin and subcutaneous tissue related to radiation [facility] Diagnosis Irradiation cystitis with hematuria- Primary Irradiation cystitis Other specified disorders of the skin and subcutaneous tissue related to radiation [facility] Diagnosis Irradiation cystitis with hematuria- Primary Irradiation cystitis Other specified disorders of the skin and subcutaneous tissue related to radiation [facility] Diagnosis Primary osteoarthritis of first carpometacarpal joint of right hand- Primary Primary localized osteoarthrosis, hand [facility] Diagnosis Irradiation cystitis with hematuria- Primary Irradiation cystitis Other specified disorders of the skin and subcutaneous tissue related to radiation [facility] Diagnosis Irradiation cystitis with hematuria- Primary Irradiation cystitis Other specified disorders of the skin and subcutaneous tissue related to radiation [facility] Diagnosis Irradiation cystitis with hematuria- Primary Irradiation cystitis Other specified disorders of the skin and subcutaneous tissue related to radiation [facility] Diagnosis Irradiation cystitis with hematuria- Primary Irradiation cystitis Other specified disorders of the skin and subcutaneous tissue related to radiation [facility] Diagnosis Irradiation cystitis with hematuria- Primary Irradiation cystitis Other specified disorders of the skin and subcutaneous tissue related to radiation [facility] Diagnosis Irradiation cystitis with hematuria- Primary Irradiation cystitis Other specified disorders of the skin and subcutaneous tissue related to radiation [facility] Diagnosis Irradiation cystitis with hematuria- Primary Irradiation cystitis Other specified disorders of the skin and subcutaneous tissue related to radiation [facility] Diagnosis Irradiation cystitis with hematuria- Primary Irradiation cystitis Other specified disorders of the skin and subcutaneous tissue related to radiation [facility] Diagnosis Encounter for follow-up surveillance of prostate cancer- Primary Unspecified follow-up examination [facility] Diagnosis Encounter for follow-up surveillance of prostate cancer- Primary Unspecified follow-up examination [facility] Diagnosis Arthritis of carpometacarpal (CMC) joint of left thumb- Primary [facility] Diagnosis Status post total right knee replacement- Primary Primary osteoarthritis of left knee Primary localized osteoarthrosis, lower leg [facility] Diagnosis Left knee pain, unspecified chronicity [facility] Diagnosis Left knee pain, unspecified chronicity- Primary [facility] Diagnosis Left hip pain- Primary Pain in joint, pelvic region and thigh [facility] Diagnosis Primary osteoarthritis of left hip- Primary Primary localized osteoarthrosis, pelvic region and thigh 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 [facility] Diagnosis Left hip pain Pain in joint, pelvic region and thigh documented in this encounter [facility] for referral (narrative)* Diagnostic Procedure Only (Routine) - Closed Specialty Diagnoses / Procedures Referred By Contac t Referred To Contact XR IMAGING Diagnoses Pain Procedures XR KNEE GENERAL 4V AP BOTH/PA BOTH/LAT/MERC LEFT RADIOLOGIC EXAM KNEE COMPLETE 4/MORE VIEWS James Barnes APRN.CNP [address] [address] Xr Imaging Referral ID Status Reason Start Date Expiration Date V isits Requested Visits Authorized [id number] Closed Auto-Generate d Referral 12/16/2021 01/12/2023 1 1 [facility] for referral (narrative)* Diagnostic Procedure Only (Routine) - Pending Review Specialty Diagnoses / Procedures Referred By Contac t Referred To Contact MOLECULAR & FUNCTIONAL IMAGING Diagnoses Prostate cancer (HCC) Procedures NM BONE WHOLE BODY BONE &/JOINT [place] [address] [place] [address] Molecular & Functional Imaging [address] [place] [address] Referral ID Status Reason Start Date Expiration Date Visits Requested Visits Authorized [id number] Pending Review Auto-Generat ed Referral 05/19/2022 06/18/2023 1 1 * MRI/CT (Routine) - Pending Review Specialty Diagnoses / Procedures Referred By Contac t Referred To Contact CT IMAGING Diagnoses Prostate cancer (HCC) Procedures CT PELVIS W IVCON CT PELVIS W/CONTRAST MATERIAL Vazquez Page DO [address] [place] [address] Ct Imaging Referral ID Status Reason Start Date Expiration Date Visits Requested Visits Authorized [id number] Pending Review Auto-Generat ed Referral 05/19/2022 06/18/2023 1 1 [facility] for referral (narrative)* Diagnostic Procedure Only (Routine) - Closed Specialty Diagnoses / Procedures Referred By Contac t Referred To Contact MOLECULAR & FUNCTIONAL IMAGING Diagnoses Prostate cancer (HCC) Procedures NM BONE WHOLE BODY BONE &/JOINT [place] [address] [place] [address] Molecular & Functional Imaging [address] [place] [address] Referral ID Status Reason Start Date Expiration Date V isits Requested Visits Authorized [id number] Closed Auto-Generate d Referral 05/19/2022 06/18/2023 1 1 [facility] for referral (narrative)* Diagnostic Procedure Only (Routine) - Closed Specialty Diagnoses / Procedures Referred By Contac t Referred To Contact US IMAGING Diagnoses Leg swelling Procedures US DVT LOWER LT DUP-SCAN XTR VEINS UNILATERAL/[place] [address] [place] [address] Us Imaging Referral ID Status Reason Start Date Expiration Date V isits Requested Visits Authorized [id number] Closed Auto-Generate d Referral 12/02/2022 01/01/2024 1 1 [facility] for referral (narrative)* Diagnostic Procedure Only (Routine) - Pending Review Specialty Diagnoses / Procedures Referred By Contac t Referred To Contact XR IMAGING Diagnoses Left hand pain Procedures XR HAND GENERAL 3V PA/LAT/OBL LEFT RADEX HAND MINIMUM 3 VIEWS Afsaneh Hayes PA-C [address] [place] [address] Xr Imaging Referral ID Status Reason Start Date Expiration Date Visits Requested Visits Authorized [id number] Pending Review Auto-Generat ed Referral 01/23/2023 02/22/2024 1 1 [facility] for referral (narrative)* Diagnostic Procedure Only (Routine) - Closed Specialty Diagnoses / Procedures Referred By Contac t Referred To Contact XR IMAGING Diagnoses Thumb pain, right Procedures XR HAND GENERAL 3V PA/LAT/OBL RIGHT RADEX HAND MINIMUM 3 VIEWS Afsaneh Hayes PA-C [address] [place] [address] Xr Imaging Referral ID Status Reason Start Date Expiration Date V isits Requested Visits Authorized [id number] Closed Auto-Generate d Referral 02/05/2023 03/06/2024 1 1 [facility] for referral (narrative)* Diagnostic Procedure Only (Routine) - Closed Specialty Diagnoses / Procedures Referred By Contac t Referred To Contact XR IMAGING Diagnoses Prostate cancer (HCC) Procedures XR LUMBAR GENERAL 3V AP/LAT/L5-S1 RADEX SPINE LUMBOSACRAL 2/3 [place] [address] [place] [address] [place] [address] Referral ID Status Reason Start Date Expiration Date V isits Requested Visits Authorized [id number] Closed Auto-Generate d Referral 07/03/2023 08/01/2024 1 1 * Diagnostic Procedure Only (Routine) - Closed Specialty Diagnoses / Procedures Referred By Contac t Referred To Contact XR IMAGING Diagnoses Prostate cancer (HCC) Procedures XR SACRUM/COCCYX 3V AP/LAT RADEX SACRUM & COCCYX MINIMUM 2 [place] [address] [place] [address] [place] [address] Referral ID Status Reason Start Date Expiration Date V isits Requested Visits Authorized [id number] Closed Auto-Generate d Referral 07/03/2023 08/01/2024 1 1 * Diagnostic Procedure Only (Routine) - Closed Specialty Diagnoses / Procedures Referred By Contac t Referred To Contact XR IMAGING Diagnoses Prostate cancer (HCC) Procedures XR PELVIS 3V AP/INLET/OUTLET RADIOLOGIC EXAM PELVIS COMPL MINIMUM 3 [place] [address] [place] [address] [place] [address] Referral ID Status Reason Start Date Expiration Date V isits Requested Visits Authorized [id number] Closed Auto-Generate d Referral 07/03/2023 08/01/2024 1 1 [facility] for referral (narrative)* Diagnostic Procedure Only (Routine) - Pending Review Specialty Diagnoses / Procedures Referred By Contac t Referred To Contact US IMAGING Diagnoses Pain in joint, multiple sites Procedures US HAND/WRIST SYNOVIAL SCREEN LEFT US COMPL JOINT R-T W/[place] [address] [place] [id number] [place] [address] Referral ID Status Reason Start Date Expiration Date Visits Requested Visits Authorized [id number] Pending Review Auto-Generat ed Referral 12/14/2023 01/12/2025 1 1 * Diagnostic Procedure Only (Routine) - Pending Review Specialty Diagnoses / Procedures Referred By Contac t Referred To Contact US IMAGING Diagnoses Pain in joint, multiple sites Procedures US HAND/WRIST SYNOVIAL SCREEN RIGHT US COMPL JOINT R-T W/[place] [address] [place] [address] [place] [address] Referral ID Status Reason Start Date Expiration Date Visits Requested Visits Authorized [id number] Pending Review Auto-Generat ed Referral 12/14/2023 01/12/2025 1 1 [facility] for referral (narrative)* Diagnostic Procedure Only (Routine) - Closed Specialty Diagnoses / Procedures Referred By Contac t Referred To Contact US IMAGING Diagnoses Pain in joint, multiple sites Procedures US HAND/WRIST SYNOVIAL SCREEN LEFT US COMPL JOINT R-T W/[place] [address] [place] [address] [place] [address] Referral ID Status Reason Start Date Expiration Date V isits Requested Visits Authorized [id number] Closed Auto-Generate d Referral 12/14/2023 01/12/2025 1 1 * Diagnostic Procedure Only (Routine) - Closed Specialty Diagnoses / Procedures Referred By Contac t Referred To Contact US IMAGING Diagnoses Pain in joint, multiple sites Procedures US HAND/WRIST SYNOVIAL SCREEN RIGHT US COMPL JOINT R-T W/[place] [address] [place] [address] [place] [address] Referral ID Status Reason Start Date Expiration Date V isits Requested Visits Authorized [id number] Closed Auto-Generate d Referral 12/14/2023 01/12/2025 1 1 [facility] for referral (narrative)* Diagnostic Procedure Only (Routine) - Authorized Specialty Diagnoses / Procedures Referred By Contac t Referred To Contact XR IMAGING Diagnoses Pain Procedures XR WRIST GENERAL 3V PA/LAT/OBL LEFT RADEX WRIST COMPLETE MINIMUM 3 VIEWS Patria Scott PA-C [address] [place] [address] [place] [address] Referral ID Status Reason Start Date Expiration Date Visits Requested Visits Authorized [id number] Authorized Auto-Generat ed Referral 03/20/2024 04/19/2025 1 1 [facility] for referral (narrative)* Diagnostic Procedure Only (Routine) - Closed Specialty Diagnoses / Procedures Referred By Contac t Referred To Contact XR IMAGING Diagnoses Pain Procedures XR WRIST GENERAL 3V PA/LAT/OBL LEFT RADEX WRIST COMPLETE MINIMUM 3 VIEWS Patria Scott PA-C [address] [place] [address] [place] [address] Referral ID Status Reason Start Date Expiration Date V isits Requested Visits Authorized [id number] Closed Auto-Generate d Referral 03/20/2024 04/19/2025 1 1 [facility] for referral (narrative)* Diagnostic Procedure Only (Routine) - Closed Specialty Diagnoses / Procedures Referred By Contac t Referred To Contact XR IMAGING Diagnoses Pain in left hip Procedures XR HIP 2V AP/LAT LEFT (AK,FL,ME) RADEX HIP UNILATERAL WITH PELVIS 2-3 VIEWS Selwyn Leiva PA-C [address] [place] [address] [place] [address] Referral ID Status Reason Start Date Expiration Date V isits Requested Visits Authorized [id number] Closed Auto-Generate d Referral 04/07/2023 05/06/2024 1 1 [facility] for referral (narrative)* Diagnostic Procedure Only (Routine) - Closed Specialty Diagnoses / Procedures Referred By Contac t Referred To Contact XR IMAGING Diagnoses Thumb pain, right Procedures XR HAND GENERAL 3V PA/LAT/OBL RIGHT RADEX HAND MINIMUM 3 VIEWS Afsaneh Hayes PA-C [address] [place] [address] [place] [address] Referral ID Status Reason Start Date Expiration Date V isits Requested Visits Authorized [id number] Closed Auto-Generate d Referral 02/05/2023 03/06/2024 1 1 * Diagnostic Procedure Only (Routine) - Closed Specialty Diagnoses / Procedures Referred By Contac t Referred To Contact XR IMAGING Diagnoses Left hand pain Procedures XR HAND GENERAL 3V PA/LAT/OBL LEFT RADEX HAND MINIMUM 3 VIEWS Afsaneh Hayes PA-C [address] [place] [address] [place] [address] Referral ID Status Reason Start Date Expiration Date V isits Requested Visits Authorized [id number] Closed Auto-Generate d Referral 01/23/2023 02/22/2024 1 1 [facility] for referral (narrative)* Diagnostic Procedure Only (Routine) - Closed Specialty Diagnoses / Procedures Referred By Contac t Referred To Contact US IMAGING Diagnoses Leg swelling Procedures US DVT LOWER LT DUP-SCAN XTR VEINS UNILATERAL/[place] [address] [place] [address] [facility] Referral ID Status Reason Start Date Expiration Date V isits Requested Visits Authorized [id number] Closed Auto-Generate d Referral 12/02/2022 01/01/2024 1 1 [facility] for referral (narrative)* Diagnostic Procedure Only (Routine) - Closed Specialty Diagnoses / Procedures Referred By Contac t Referred To Contact XR IMAGING Diagnoses Pain Procedures XR SHOULDER GENERAL 3V OR MORE AP/TRUE AP/OTHER RIGHT RADEX SHOULDER COMPLETE MINIMUM 2 VIEWS Flynn Julian PA-C [address] [address] [place] [address] Referral ID Status Reason Start Date Expiration Date V isits Requested Visits Authorized [id number] Closed Auto-Generate d Referral 09/11/2022 10/11/2023 1 1 [facility] Diagnostic Procedure Only (Routine) - Closed Specialty Diagnoses / Procedures Referred By Contac t Referred To Contact XR IMAGING Diagnoses Right hand pain Procedures XR HAND GENERAL 3V PA/LAT/OBL RIGHT RADEX HAND MINIMUM 3 [place] [address] [place] [address] [place] [address] Referral ID Status Reason Start Date Expiration Date V isits Requested Visits Authorized [id number] Closed Auto-Generate d Referral 08/02/2024 09/01/2025 1 1 [facility]No reason for referral information availableWCleveland Clinic [facility] Work Phone: Reason for visit Narrative* Diagnostic Procedure Only (Routine) - Closed Specialty Diagnoses / Procedures Referred By Contac t Referred To Contact XR IMAGING Diagnoses Pain Procedures XR KNEE GENERAL 4V AP BOTH/PA BOTH/LAT/MERC LEFT RADIOLOGIC EXAM KNEE COMPLETE 4/MORE VIEWS James Barnes APRN.[facility] [address] [address] Xr Imaging Referral ID Status Reason Start Date Expiration Date V isits Requested Visits Authorized [id number] Closed Auto-Generate d Referral 12/16/2021 01/12/2023 1 1 [facility] for visit Narrative* Diagnostic Procedure Only (Routine) - Closed Specialty Diagnoses / Procedures Referred By Contac t Referred To Contact MOLECULAR & FUNCTIONAL IMAGING Diagnoses Prostate cancer (HCC) Procedures NM BONE WHOLE BODY BONE &/JOINT IMAGING WHOLE BODY Vazquez Page DO [address] [place] [address] Molecular & Functional Imaging [address] [place] [address] Referral ID Status Reason Start Date Expiration Date V isits Requested Visits Authorized [id number] Closed Auto-Generate d Referral 05/19/2022 06/18/2023 1 1 [facility] for visit Narrative* Diagnostic Procedure Only (Routine) - Waiting for Online Response Specialty Diagnoses / Procedures Referred By Contac t Referred To Contact MOLECULAR & FUNCTIONAL IMAGING Diagnoses Prostate cancer (HCC) Procedures NM PET/CT PROSTATE WHOLE BODY IMAGING PET IMAGING CT ATTENUATION SKULL BASE [place] [address] [place] [phone] Molecular & Functional Imaging [address] [place] [address] Referral ID Status Reason Start Date Expiration Date Visits Requested Visits Authorized [id number] Waiting for Online Response Patient Cleared - Admin/Chair man/Directo r advise to proceed 2 08/21/2023 2 2 [facility] for visit Narrative* Diagnostic Procedure Only (Routine) - Closed Specialty Diagnoses / Procedures Referred By Contac t Referred To Contact XR IMAGING Diagnoses Prostate cancer (HCC) Procedures XR SACRUM/COCCYX 3V AP/LAT RADEX SACRUM & COCCYX MINIMUM 2 [place] [address] [place] [phone] [place] [address] Referral ID Status Reason Start Date Expiration Date V isits Requested Visits Authorized [id number] Closed Auto-Generate d Referral 07/03/2023 08/01/2024 1 1 [facility] for visit Narrative* Diagnostic Procedure Only (Routine) - Closed Specialty Diagnoses / Procedures Referred By Contac t Referred To Contact US IMAGING Diagnoses Pain in joint, multiple sites Procedures US HAND/WRIST SYNOVIAL SCREEN LEFT US COMPL JOINT R-T W/[place] [address] [place] [phone] [place] [address] Referral ID Status Reason Start Date Expiration Date V isits Requested Visits Authorized [id number] Closed Auto-Generate d Referral 12/14/2023 01/12/2025 1 1 [facility] for visit Narrative* Diagnostic Procedure Only (Routine) - Closed Specialty Diagnoses / Procedures Referred By Contac t Referred To Contact XR IMAGING Diagnoses Pain Procedures XR WRIST GENERAL 3V PA/LAT/OBL LEFT RADEX WRIST COMPLETE MINIMUM 3 VIEWS Patria Scott PA-C [address] [place] [address] [place] [address] Referral ID Status Reason Start Date Expiration Date V isits Requested Visits Authorized [id number] Closed Auto-Generate d Referral 03/20/2024 04/19/2025 1 1 [facility] for visit Narrative* Diagnostic Procedure Only (Routine) - Closed Specialty Diagnoses / Procedures Referred By Contac t Referred To Contact XR IMAGING Diagnoses Pain in left hip Procedures XR HIP 2V AP/LAT LEFT (AK,FL,ME) RADEX HIP UNILATERAL WITH PELVIS 2-3 VIEWS Selwyn Leiva PA-C [address] [place] [address] [place] [address] Referral ID Status Reason Start Date Expiration Date V isits Requested Visits Authorized [id number] Closed Auto-Generate d Referral 04/07/2023 05/06/2024 1 1 [facility] for visit Narrative* Diagnostic Procedure Only (Routine) - Closed Specialty Diagnoses / Procedures Referred By Contac t Referred To Contact XR IMAGING Diagnoses Left hand pain Procedures XR HAND GENERAL 3V PA/LAT/OBL LEFT RADEX HAND MINIMUM 3 VIEWS fAsaneh Hayes PA-C [address] [place] [address] [place] [address] Referral ID Status Reason Start Date Expiration Date V isits Requested Visits Authorized [id number] Closed Auto-Generate d Referral 01/23/2023 02/22/2024 1 1 [facility] for visit Narrative* Diagnostic Procedure Only (Routine) - Closed Specialty Diagnoses / Procedures Referred By Contac t Referred To Contact US IMAGING Diagnoses Leg swelling Procedures US DVT LOWER LT DUP-SCAN XTR VEINS UNILATERAL/[place] [address] [place] [address] [place] [address] Referral ID Status Reason Start Date Expiration Date V isits Requested Visits Authorized [id number] Closed Auto-Generate d Referral 12/02/2022 01/01/2024 1 1 [facility] for visit Narrative* Diagnostic Procedure Only (Routine) - Closed Specialty Diagnoses / Procedures Referred By Contac t Referred To Contact XR IMAGING Diagnoses Left knee pain, unspecified chronicity Procedures XR KNEE GENERAL 4V AP BOTH/PA BOTH/LAT/MERC LEFT RADIOLOGIC EXAM KNEE COMPLETE 4/MORE VIEWS Selwyn Leiva PA-C [address] [place] [address] Phone: tel: fax: [place] [address] Referral ID Status Reason Start Date Expiration Date V isits Requested Visits Authorized [id number] Closed Auto-Generate d Referral 02/27/2025 03/29/2026 1 1 [facility] Medications Administered Section Inactive Administered Medications - [...] FoundDocuments on File Type Date Recorded Patient [employer] anation Advance Directive(s) 06/30/2018 9:14 AM Date Activated Date Inactivated Comments 06/30/2018 1:18 PM 07/01/2018 6:48 PM Question Answer Comments Full Code Order Discussed With: Patient Latest Code Status on File Code Status Date Activated Date Inactivated Comments Full Code 06/30/2018 1:18 PM 07/01/2018 6:48 PM Full Code Order Discussed With: Patient Documents on File Type Date Recorded Patient [employer] an[employer] Advance Directive(s) 10/04/2021 7:34 PM Advance Directive(s) 11/12/2019 9:23 PM Advance Directive(s) 08/24/2018 4:38 PM Advance Directive(s) 06/30/2018 9:16 AM Ne anned [id number] Advance Directive(s) 06/30/2018 9:14 AM Advance Directive(s) 05/11/2018 8:03 AM Advance Directive(s) 07/23/2016 8:48 AM Advance Directive(s) 07/23/2016 11:45 AM Latest Code Status on File Code Status Date Activated Date Inactivated Comments Full Code 06/30/2018 1:18 PM 07/01/2018 6:48 PM Documents on File Type Date Recorded Patient [employer] an[employer] Advance Directive(s) 10/04/2021 7:34 PM Advance Directive(s) 11/12/2019 9:23 PM Advance Directive(s) 08/24/2018 4:38 PM Advance Directive(s) 06/30/2018 9:16 AM Ne anned [id number] Advance Directive(s) 06/30/2018 9:14 AM Advance Directive(s) 05/11/2018 8:03 AM Advance Directive(s) 07/23/2016 8:48 AM Advance Directive(s) 07/23/2016 11:45 AM Documents on File Type Date Recorded Patient [employer] an[employer] Advance Directive(s) 06/30/2018 9:14 AM [...] Prostate cancer (HCC) Procedures RAD/ONC CONSULT OFFICE/OUTPATIENT [facility] 60-74 MINUTES Vazquez Page DO [address] [place] [address] [place] [address] [place] [address] Referral ID Status Reason Start Date Expiration Date Visits Requested Visits Authorized [id number] Authorized PCP Requested Referral 06/19/2022 06/19/2023 1 1 Specialty Diagnoses / Procedures Referred By Contac t Referred To Contact MR IMAGING Diagnoses Prostate cancer (HCC) Procedures MRI PROSTATE WO/W IVCON MRI PELVIS W/O & W/CONTRAST MATERIAL Vazquez Page DO [address] [place] [address] Mr Imaging Referral ID Status Reason Start Date Expiration Date Visits Requested Visits Authorized [id number] Pending Review Auto-Generat ed Referral 06/19/2022 07/19/2023 1 1 Specialty Diagnoses / Procedures Referred By Contac t Referred To Contact MR IMAGING Diagnoses Dysfunction of right rotator cuff Procedures MRI SHOULDER WO IVCON RT MRI ANY JT UPPER EXTREMITY W/O CONTRAST MATRFlynn Balbuena PA-C [address] [place] [address] Mr Imaging Referral ID Status Reason Start Date Expiration Date Visits Requested Visits Authorized [id number] Pending Review Auto-Generat ed Referral 10/12/2023 1 1 Specialty Diagnoses / Procedures Referred By Contac t Referred To Contact [facility] Diagnoses Dysfunction of right rotator cuff Procedures CONSULT TO PHYSICAL THERAPY PHYSICAL THERAPY EVALUATION HIGH COMPLEX 45 MINS Flynn Julian PA-C [address] [place] [phone] [facility] [place] [address] [place] [address] Referral ID Status Reason Start Date Expiration Date Visits Requested Visits Authorized [id number] Pending Review Auto-Generat ed Referral 2 09/12/2023 1 1 Specialty Diagnoses / Procedures Referred By Contac t Referred To Contact Urology Diagnoses Prostate cancer (HCC) Bladder neck obstruction Procedures CONSULT TO UROLOGY OFFICE/OUTPATIENT [facility] MDM 60 [place] [address] [place] [phone] Referral ID Status Reason Start Date Expiration Date Visits Requested Visits Authorized [id number] Authorized PCP Requested Referral 12/17/2023 12/16/2024 1 1 Specialty Diagnoses / Procedures Referred By Contac t Referred To Contact MR IMAGING Diagnoses Bladder neck obstruction Procedures MRI PELVIS WO/W IVCON MRI PELVIS W/O & W/[place] [address] [place] [address] Mr Imaging [place] [address] Referral ID Status Reason Start Date Expiration Date Visits Requested Visits Authorized [id number] Pending Review Auto-Generat ed Referral 12/17/2023 01/15/2025 1 1 Referral ID Status Reason Start Date Expiration Date V isits Requested Visits Authorized [id number] Closed Auto-Generate d Referral 01/12/2024 02/11/2024 2 1 Summary Purpose Additional Source Comments Source Comments (unrecognize d section and content) In the event this informatio n is protected by the Federal Confidentiality of Alcohol and Drug Abuse Patient Records regulations: The Federal rules restrict any use of the information to criminally investigate or prosecute any alcohol or drug abuse patient.[facility] the event this information is protected by the Federal Confidentiality of Alcohol and Drug Abuse Patient Records regulations: The Federal rules restrict any use of the information to criminally investigate or prosecute any alcohol or drug abuse patient.[facility] the event this information is protected by the Federal Confidentiality of Alcohol and Drug Abuse Patient Records regulations: The Federal rules restrict any use of the information to criminally investigate or prosecute any alcohol or drug abuse patient.[facility] the event this information is protected by the Federal Confidentiality of Alcohol and Drug Abuse Patient Records regulations: The Federal rules restrict any use of the information to criminally investigate or prosecute any alcohol or drug abuse patient.[facility] the event this information is protected by the Federal Confidentiality of Alcohol and Drug Abuse Patient Records regulations: The Federal rules restrict any use of the information to criminally investigate or prosecute any alcohol or drug abuse patient.[facility] the event this information is protected by the Federal Confidentiality of Alcohol and Drug Abuse Patient Records regulations: The Federal rules restrict any use of the information to criminally investigate or prosecute any alcohol or drug abuse patient.[facility] the event this information is protected by the Federal Confidentiality of Alcohol and Drug Abuse Patient Records regulations: The Federal rules restrict any use of the information to criminally investigate or prosecute any alcohol or drug abuse patient.[facility] the event this information is protected by the Federal Confidentiality of Alcohol and Drug Abuse Patient Records regulations: The Federal rules restrict any use of the information to criminally investigate or prosecute any alcohol or drug abuse patient.[facility] the event this information is protected by the Federal Confidentiality of Alcohol and Drug Abuse Patient Records regulations: The Federal rules restrict any use of the information to criminally investigate or prosecute any alcohol or drug abuse patient.[facility] the event this information is protected by the Federal Confidentiality of Alcohol and Drug Abuse Patient Records regulations: The Federal rules restrict any use of the information to criminally investigate or prosecute any alcohol or drug abuse patient.[facility] the event this information is protected by the Federal Confidentiality of Alcohol and Drug Abuse Patient Records regulations: The Federal rules restrict any use of the information to criminally investigate or prosecute any alcohol or drug abuse patient.[facility] the event this information is protected by the Federal Confidentiality of Alcohol and Drug Abuse Patient Records regulations: The Federal rules restrict any use of the information to criminally investigate or prosecute any alcohol or drug abuse patient.[facility] the event this information is protected by the Federal Confidentiality of Alcohol and Drug Abuse Patient Records regulations: The Federal rules restrict any use of the information to criminally investigate or prosecute any alcohol or drug abuse patient.[facility] CampusIn the event this information is protected by the Federal Confidentiality of Alcohol and Drug Abuse Patient Records regulations: The Federal rules restrict any use of the information to criminally investigate or prosecute any alcohol or drug abuse patient.[facility] CampusIn the event this information is protected by the Federal Confidentiality of Alcohol and Drug Abuse Patient Records regulations: The Federal rules restrict any use of the information to criminally investigate or prosecute any alcohol or drug abuse patient.[facility] CampusIn the event this information is protected by the Federal Confidentiality of Alcohol and Drug Abuse Patient Records regulations: The Federal rules restrict any use of the information to criminally investigate or prosecute any alcohol or drug abuse patient.[facility] CampusIn the event this information is protected by the Federal Confidentiality of Alcohol and Drug Abuse Patient Records regulations: The Federal rules restrict any use of the information to criminally investigate or prosecute any alcohol or drug abuse patient.[facility]In the event this information is protected by the Federal Confidentiality of Alcohol and Drug Abuse Patient Records regulations: The Federal rules restrict any use of the information to criminally investigate or prosecute any alcohol or drug abuse patient.[facility] CampusIn the event this information is protected by the Federal Confidentiality of Alcohol and Drug Abuse Patient Records regulations: The Federal rules restrict any use of the information to criminally investigate or prosecute any alcohol or drug abuse patient.[facility]In the event this information is protected by the Federal Confidentiality of Alcohol and Drug Abuse Patient Records regulations: The Federal rules restrict any use of the information to criminally investigate or prosecute any alcohol or drug abuse patient.[facility] CampusIn the event this information is protected by the Federal Confidentiality of Alcohol and Drug Abuse Patient Records regulations: The Federal rules restrict any use of the information to criminally investigate or prosecute any alcohol or drug abuse patient.[facility] CampusIn the event this information is protected by the Federal Confidentiality of Alcohol and Drug Abuse Patient Records regulations: The Federal rules restrict any use of the information to criminally investigate or prosecute any alcohol or drug abuse patient.[facility]In the event this information is protected by the Federal Confidentiality of Alcohol and Drug Abuse Patient Records regulations: The Federal rules restrict any use of the information to criminally investigate or prosecute any alcohol or drug abuse patient.[facility] CampusIn the event this information is protected by the Federal Confidentiality of Alcohol and Drug Abuse Patient Records regulations: The Federal rules restrict any use of the information to criminally investigate or prosecute any alcohol or drug abuse patient.[facility] CampusIn the event this information is protected by the Federal Confidentiality of Alcohol and Drug Abuse Patient Records regulations: The Federal rules restrict any use of the information to criminally investigate or prosecute any alcohol or drug abuse patient.[facility] CampusIn the event this information is protected by the Federal Confidentiality of Alcohol and Drug Abuse Patient Records regulations: The Federal rules restrict any use of the information to criminally investigate or prosecute any alcohol or drug abuse patient.[facility] CampusIn the event this information is protected by the Federal Confidentiality of Alcohol and Drug Abuse Patient Records regulations: The Federal rules restrict any use of the information to criminally investigate or prosecute any alcohol or drug abuse patient.[facility]In the event this information is protected by the Federal Confidentiality of Alcohol and Drug Abuse Patient Records regulations: The Federal rules restrict any use of the information to criminally investigate or prosecute any alcohol or drug abuse patient.[facility] CampusIn the event this information is protected by the Federal Confidentiality of Alcohol and Drug Abuse Patient Records regulations: The Federal rules restrict any use of the information to criminally investigate or prosecute any alcohol or drug abuse patient.[facility] CampusIn the event this information is protected by the Federal Confidentiality of Alcohol and Drug Abuse Patient Records regulations: The Federal rules restrict any use of the information to criminally investigate or prosecute any alcohol or drug abuse patient.[facility] CampusIn the event this information is protected by the Federal Confidentiality of Alcohol and Drug Abuse Patient Records regulations: The Federal rules restrict any use of the information to criminally investigate or prosecute any alcohol or drug abuse patient.[facility] CampusIn the event this information is protected by the Federal Confidentiality of Alcohol and Drug Abuse Patient Records regulations: The Federal rules restrict any use of the information to criminally investigate or prosecute any alcohol or drug abuse patient.[facility] CampusIn the event this information is protected by the Federal Confidentiality of Alcohol and Drug Abuse Patient Records regulations: The Federal rules restrict any use of the information to criminally investigate or prosecute any alcohol or drug abuse patient.[facility] CampusIn the event this information is protected by the Federal Confidentiality of Alcohol and Drug Abuse Patient Records regulations: The Federal rules restrict any use of the information to criminally investigate or prosecute any alcohol or drug abuse patient.[facility] CampusIn the event this information is protected by the Federal Confidentiality of Alcohol and Drug Abuse Patient Records regulations: The Federal rules restrict any use of the information to criminally investigate or prosecute any alcohol or drug abuse patient.[facility] CampusIn the event this information is protected by the Federal Confidentiality of Alcohol and Drug Abuse Patient Records regulations: The Federal rules restrict any use of the information to criminally investigate or prosecute any alcohol or drug abuse patient.[facility] CampusIn the event this information is protected by the Federal Confidentiality of Alcohol and Drug Abuse Patient Records regulations: The Federal rules restrict any use of the information to criminally investigate or prosecute any alcohol or drug abuse patient.[facility] CampusIn the event this information is protected by the Federal Confidentiality of Alcohol and Drug Abuse Patient Records regulations: The Federal rules restrict any use of the information to criminally investigate or prosecute any alcohol or drug abuse patient.[facility] CampusIn the event this information is protected by the Federal Confidentiality of Alcohol and Drug Abuse Patient Records regulations: The Federal rules restrict any use of the information to criminally investigate or prosecute any alcohol or drug abuse patient.[facility] CampusIn the event this information is protected by the Federal Confidentiality of Alcohol and Drug Abuse Patient Records regulations: The Federal rules restrict any use of the information to criminally investigate or prosecute any alcohol or drug abuse patient.[facility] CampusIn the event this information is protected by the Federal Confidentiality of Alcohol and Drug Abuse Patient Records regulations: The Federal rules restrict any use of the information to criminally investigate or prosecute any alcohol or drug abuse patient.[facility] CampusIn the event this information is protected by the Federal Confidentiality of Alcohol and Drug Abuse Patient Records regulations: The Federal rules restrict any use of the information to criminally investigate or prosecute any alcohol or drug abuse patient.[facility]In the event this information is protected by the Federal Confidentiality of Alcohol and Drug Abuse Patient Records regulations: The Federal rules restrict any use of the information to criminally investigate or prosecute any alcohol or drug abuse patient.[facility] CampusIn the event this information is protected by the Federal Confidentiality of Alcohol and Drug Abuse Patient Records regulations: The Federal rules restrict any use of the information to criminally investigate or prosecute any alcohol or drug abuse patient.[facility] CampusIn the event this information is protected by the Federal Confidentiality of Alcohol and Drug Abuse Patient Records regulations: The Federal rules restrict any use of the information to criminally investigate or prosecute any alcohol or drug abuse patient.[facility]In the event this information is protected by the Federal Confidentiality of Alcohol and Drug Abuse Patient Records regulations: The Federal rules restrict any use of the information to criminally investigate or prosecute any alcohol or drug abuse patient.[facility] CampusIn the event this information is protected by the Federal Confidentiality of Alcohol and Drug Abuse Patient Records regulations: The Federal rules restrict any use of the information to criminally investigate or prosecute any alcohol or drug abuse patient.[facility]In the event this information is protected by the Federal Confidentiality of Alcohol and Drug Abuse Patient Records regulations: The Federal rules restrict any use of the information to criminally investigate or prosecute any alcohol or drug abuse patient.[facility]In the event this information is protected by the Federal Confidentiality of Alcohol and Drug Abuse Patient Records regulations: The Federal rules restrict any use of the information to criminally investigate or prosecute any alcohol or drug abuse patient.[facility] CampusIn the event this information is protected by the Federal Confidentiality of Alcohol and Drug Abuse Patient Records regulations: The Federal rules restrict any use of the information to criminally investigate or prosecute any alcohol or drug abuse patient.[facility]In the event this information is protected by the Federal Confidentiality of Alcohol and Drug Abuse Patient Records regulations: The Federal rules restrict any use of the information to criminally investigate or prosecute any alcohol or drug abuse patient.[facility] CampusIn the event this information is protected by the Federal Confidentiality of Alcohol and Drug Abuse Patient Records regulations: The Federal rules restrict any use of the information to criminally investigate or prosecute any alcohol or drug abuse patient.[facility]In the event this information is protected by the Federal Confidentiality of Alcohol and Drug Abuse Patient Records regulations: The Federal rules restrict any use of the information to criminally investigate or prosecute any alcohol or drug abuse patient.[facility]In the event this information is protected by the Federal Confidentiality of Alcohol and Drug Abuse Patient Records regulations: The Federal rules restrict any use of the information to criminally investigate or prosecute any alcohol or drug abuse patient.[facility]In the event this information is protected by the Federal Confidentiality of Alcohol and Drug Abuse Patient Records regulations: The Federal rules restrict any use of the information to criminally investigate or prosecute any alcohol or drug abuse patient.[facility]In the event this information is protected by the Federal Confidentiality of Alcohol and Drug Abuse Patient Records regulations: The Federal rules restrict any use of the information to criminally investigate or prosecute any alcohol or drug abuse patient.[facility]In the event this information is protected by the Federal Confidentiality of Alcohol and Drug Abuse Patient Records regulations: The Federal rules restrict any use of the information to criminally investigate or prosecute any alcohol or drug abuse patient.[facility]In the event this information is protected by the Federal Confidentiality of Alcohol and Drug Abuse Patient Records regulations: The Federal rules restrict any use of the information to criminally investigate or prosecute any alcohol or drug abuse patient.[facility]In the event this information is protected by the Federal Confidentiality of Alcohol and Drug Abuse Patient Records regulations: The Federal rules restrict any use of the information to criminally investigate or prosecute any alcohol or drug abuse patient.[facility]In the event this information is protected by the Federal Confidentiality of Alcohol and Drug Abuse Patient Records regulations: The Federal rules restrict any use of the information to criminally investigate or prosecute any alcohol or drug abuse patient.[facility]In the event this information is protected by the Federal Confidentiality of Alcohol and Drug Abuse Patient Records regulations: The Federal rules restrict any use of the information to criminally investigate or prosecute any alcohol or drug abuse patient.[facility] CampusIn the event this information is protected by the Federal Confidentiality of Alcohol and Drug Abuse Patient Records regulations: The Federal rules restrict any use of the information to criminally investigate or prosecute any alcohol or drug abuse patient.[facility]In the event this information is protected by the Federal Confidentiality of Alcohol and Drug Abuse Patient Records regulations: The Federal rules restrict any use of the information to criminally investigate or prosecute any alcohol or drug abuse patient.[facility]In the event this information is protected by the Federal Confidentiality of Alcohol and Drug Abuse Patient Records regulations: The Federal rules restrict any use of the information to criminally investigate or prosecute any alcohol or drug abuse patient.[facility]In the event this information is protected by the Federal Confidentiality of Alcohol and Drug Abuse Patient Records regulations: The Federal rules restrict any use of the information to criminally investigate or prosecute any alcohol or drug abuse patient.[facility]In the event this information is protected by the Federal Confidentiality of Alcohol and Drug Abuse Patient Records regulations: The Federal rules restrict any use of the information to criminally investigate or prosecute any alcohol or drug abuse patient.[facility]In the event this information is protected by the Federal Confidentiality of Alcohol and Drug Abuse Patient Records regulations: The Federal rules restrict any use of the information to criminally investigate or prosecute any alcohol or drug abuse patient.[facility]In the event this information is protected by the Federal Confidentiality of Alcohol and Drug Abuse Patient Records regulations: The Federal rules restrict any use of the information to criminally investigate or prosecute any alcohol or drug abuse patient.[facility]In the event this information is protected by the Federal Confidentiality of Alcohol and Drug Abuse Patient Records regulations: The Federal rules restrict any use of the information to criminally investigate or prosecute any alcohol or drug abuse patient.[facility]In the event this information is protected by the Federal Confidentiality of Alcohol and Drug Abuse Patient Records regulations: The Federal rules restrict any use of the information to criminally investigate or prosecute any alcohol or drug abuse patient.[facility]In the event this information is protected by the Federal Confidentiality of Alcohol and Drug Abuse Patient Records regulations: The Federal rules restrict any use of the information to criminally investigate or prosecute any alcohol or drug abuse patient.[facility]In the event this information is protected by the Federal Confidentiality of Alcohol and Drug Abuse Patient Records regulations: The Federal rules restrict any use of the information to criminally investigate or prosecute any alcohol or drug abuse patient.[facility]In the event this information is protected by the Federal Confidentiality of Alcohol and Drug Abuse Patient Records regulations: The Federal rules restrict any use of the information to criminally investigate or prosecute any alcohol or drug abuse patient.[facility]In the event this information is protected by the Federal Confidentiality of Alcohol and Drug Abuse Patient Records regulations: The Federal rules restrict any use of the information to criminally investigate or prosecute any alcohol or drug abuse patient.[facility]In the event this information is protected by the Federal Confidentiality of Alcohol and Drug Abuse Patient Records regulations: The Federal rules restrict any use of the information to criminally investigate or prosecute any alcohol or drug abuse patient.[facility]In the event this information is protected by the Federal Confidentiality of Alcohol and Drug Abuse Patient Records regulations: The Federal rules restrict any use of the information to criminally investigate or prosecute any alcohol or drug abuse patient.[facility]In the event this information is protected by the Federal Confidentiality of Alcohol and Drug Abuse Patient Records regulations: The Federal rules restrict any use of the information to criminally investigate or prosecute any alcohol or drug abuse patient.[facility]In the event this information is protected by the Federal Confidentiality of Alcohol and Drug Abuse Patient Records regulations: The Federal rules restrict any use of the information to criminally investigate or prosecute any alcohol or drug abuse patient.[facility]In the event this information is protected by the Federal Confidentiality of Alcohol and Drug Abuse Patient Records regulations: The Federal rules restrict any use of the information to criminally investigate or prosecute any alcohol or drug abuse patient.[facility]In the event this information is protected by the Federal Confidentiality of Alcohol and Drug Abuse Patient Records regulations: The Federal rules restrict any use of the information to criminally investigate or prosecute any alcohol or drug abuse patient.[facility]In the event this information is protected by the Federal Confidentiality of Alcohol and Drug Abuse Patient Records regulations: The Federal rules restrict any use of the information to criminally investigate or prosecute any alcohol or drug abuse patient.[facility]In the event this information is protected by the Federal Confidentiality of Alcohol and Drug Abuse Patient Records regulations: The Federal rules restrict any use of the information to criminally investigate or prosecute any alcohol or drug abuse patient.[facility]In the event this information is protected by the Federal Confidentiality of Alcohol and Drug Abuse Patient Records regulations: The Federal rules restrict any use of the information to criminally investigate or prosecute any alcohol or drug abuse patient.[facility]In the event this information is protected by the Federal Confidentiality of Alcohol and Drug Abuse Patient Records regulations: The Federal rules restrict any use of the information to criminally investigate or prosecute any alcohol or drug abuse patient.[facility]In the event this information is protected by the Federal Confidentiality of Alcohol and Drug Abuse Patient Records regulations: The Federal rules restrict any use of the information to criminally investigate or prosecute any alcohol or drug abuse patient.[facility]In the event this information is protected by the Federal Confidentiality of Alcohol and Drug Abuse Patient Records regulations: The Federal rules restrict any use of the information to criminally investigate or prosecute any alcohol or drug abuse patient.[facility]In the event this information is protected by the Federal Confidentiality of Alcohol and Drug Abuse Patient Records regulations: The Federal rules restrict any use of the information to criminally investigate or prosecute any alcohol or drug abuse patient.[facility]In the event this information is protected by the Federal Confidentiality of Alcohol and Drug Abuse Patient Records regulations: The Federal rules restrict any use of the information to criminally investigate or prosecute any alcohol or drug abuse patient.[facility]In the event this information is protected by the Federal Confidentiality of Alcohol and Drug Abuse Patient Records regulations: The Federal rules restrict any use of the information to criminally investigate or prosecute any alcohol or drug abuse patient.[facility]In the event this information is protected by the Federal Confidentiality of Alcohol and Drug Abuse Patient Records regulations: The Federal rules restrict any use of the information to criminally investigate or prosecute any alcohol or drug abuse patient.[facility]In the event this information is protected by the Federal Confidentiality of Alcohol and Drug Abuse Patient Records regulations: The Federal rules restrict any use of the information to criminally investigate or prosecute any alcohol or drug abuse patient.[facility]In the event this information is protected by the Federal Confidentiality of Alcohol and Drug Abuse Patient Records regulations: The Federal rules restrict any use of the information to criminally investigate or prosecute any alcohol or drug abuse patient.[facility]In the event this information is protected by the Federal Confidentiality of Alcohol and Drug Abuse Patient Records regulations: The Federal rules restrict any use of the information to criminally investigate or prosecute any alcohol or drug abuse patient.[facility]In the event this information is protected by the Federal Confidentiality of Alcohol and Drug Abuse Patient Records regulations: The Federal rules restrict any use of the information to criminally investigate or prosecute any alcohol or drug abuse patient.[facility]In the event this information is protected by the Federal Confidentiality of Alcohol and Drug Abuse Patient Records regulations: The Federal rules restrict any use of the information to criminally investigate or prosecute any alcohol or drug abuse patient.[facility]In the event this information is protected by the Federal Confidentiality of Alcohol and Drug Abuse Patient Records regulations: The Federal rules restrict any use of the information to criminally investigate or prosecute any alcohol or drug abuse patient.[facility] CampusIn the event this information is protected by the Federal Confidentiality of Alcohol and Drug Abuse Patient Records regulations: The Federal rules restrict any use of the information to criminally investigate or prosecute any alcohol or drug abuse patient.[facility] CampusIn the event this information is protected by the Federal Confidentiality of Alcohol and Drug Abuse Patient Records regulations: The Federal rules restrict any use of the information to criminally investigate or prosecute any alcohol or drug abuse patient.[facility] CampusIn the event this information is protected by the Federal Confidentiality of Alcohol and Drug Abuse Patient Records regulations: The Federal rules restrict any use of the information to criminally investigate or prosecute any alcohol or drug abuse patient.[facility] CampusIn the event this information is protected by the Federal Confidentiality of Alcohol and Drug Abuse Patient Records regulations: The Federal rules restrict any use of the information to criminally investigate or prosecute any alcohol or drug abuse patient.[facility] CampusIn the event this information is protected by the Federal Confidentiality of Alcohol and Drug Abuse Patient Records regulations: The Federal rules restrict any use of the information to criminally investigate or prosecute any alcohol or drug abuse patient.[facility] CampusIn the event this information is protected by the Federal Confidentiality of Alcohol and Drug Abuse Patient Records regulations: The Federal rules restrict any use of the information to criminally investigate or prosecute any alcohol or drug abuse patient.[facility] CampusIn the event this information is protected by the Federal Confidentiality of Alcohol and Drug Abuse Patient Records regulations: The Federal rules restrict any use of the information to criminally investigate or prosecute any alcohol or drug abuse patient.[facility] CampusIn the event this information is protected by the Federal Confidentiality of Alcohol and Drug Abuse Patient Records regulations: The Federal rules restrict any use of the information to criminally investigate or prosecute any alcohol or drug abuse patient.[facility] CampusIn the event this information is protected by the Federal Confidentiality of Alcohol and Drug Abuse Patient Records regulations: The Federal rules restrict any use of the information to criminally investigate or prosecute any alcohol or drug abuse patient.[facility] CampusIn the event this information is protected by the Federal Confidentiality of Alcohol and Drug Abuse Patient Records regulations: The Federal rules restrict any use of the information to criminally investigate or prosecute any alcohol or drug abuse patient.[facility] CampusIn the event this information is protected by the Federal Confidentiality of Alcohol and Drug Abuse Patient Records regulations: The Federal rules restrict any use of the information to criminally investigate or prosecute any alcohol or drug abuse patient.[facility] CampusIn the event this information is protected by the Federal Confidentiality of Alcohol and Drug Abuse Patient Records regulations: The Federal rules restrict any use of the information to criminally investigate or prosecute any alcohol or drug abuse patient.[facility] CampusIn the event this information is protected by the Federal Confidentiality of Alcohol and Drug Abuse Patient Records regulations: The Federal rules restrict any use of the information to criminally investigate or prosecute any alcohol or drug abuse patient.[facility] CampusIn the event this information is protected by the Federal Confidentiality of Alcohol and Drug Abuse Patient Records regulations: The Federal rules restrict any use of the information to criminally investigate or prosecute any alcohol or drug abuse patient.[facility] CampusIn the event this information is protected by the Federal Confidentiality of Alcohol and Drug Abuse Patient Records regulations: The Federal rules restrict any use of the information to criminally investigate or prosecute any alcohol or drug abuse patient.[facility] CampusIn the event this information is protected by the Federal Confidentiality of Alcohol and Drug Abuse Patient Records regulations: The Federal rules restrict any use of the information to criminally investigate or prosecute any alcohol or drug abuse patient.[facility] CampusIn the event this information is protected by the Federal Confidentiality of Alcohol and Drug Abuse Patient Records regulations: The Federal rules restrict any use of the information to criminally investigate or prosecute any alcohol or drug abuse patient.[facility] CampusIn the event this information is protected by the Federal Confidentiality of Alcohol and Drug Abuse Patient Records regulations: The Federal rules restrict any use of the information to criminally investigate or prosecute any alcohol or drug abuse patient.[facility] CampusIn the event this information is protected by the Federal Confidentiality of Alcohol and Drug Abuse Patient Records regulations: The Federal rules restrict any use of the information to criminally investigate or prosecute any alcohol or drug abuse patient.[facility] CampusIn the event this information is protected by the Federal Confidentiality of Alcohol and Drug Abuse Patient Records regulations: The Federal rules restrict any use of the information to criminally investigate or prosecute any alcohol or drug abuse patient.[facility] CampusIn the event this information is protected by the Federal Confidentiality of Alcohol and Drug Abuse Patient Records regulations: The Federal rules restrict any use of the information to criminally investigate or prosecute any alcohol or drug abuse patient.[facility] CampusIn the event this information is protected by the Federal Confidentiality of Alcohol and Drug Abuse Patient Records regulations: The Federal rules restrict any use of the information to criminally investigate or prosecute any alcohol or drug abuse patient.[facility] CampusIn the event this information is protected by the Federal Confidentiality of Alcohol and Drug Abuse Patient Records regulations: The Federal rules restrict any use of the information to criminally investigate or prosecute any alcohol or drug abuse patient.[facility] CampusIn the event this information is protected by the Federal Confidentiality of Alcohol and Drug Abuse Patient Records regulations: The Federal rules restrict any use of the information to criminally investigate or prosecute any alcohol or drug abuse patient.[facility] CampusIn the event this information is protected by the Federal Confidentiality of Alcohol and Drug Abuse Patient Records regulations: The Federal rules restrict any use of the information to criminally investigate or prosecute any alcohol or drug abuse patient.[facility] CampusIn the event this information is protected by the Federal Confidentiality of Alcohol and Drug Abuse Patient Records regulations: The Federal rules restrict any use of the information to criminally investigate or prosecute any alcohol or drug abuse patient.[facility] CampusIn the event this information is protected by the Federal Confidentiality of Alcohol and Drug Abuse Patient Records regulations: The Federal rules restrict any use of the information to criminally investigate or prosecute any alcohol or drug abuse patient.[facility] CampusIn the event this information is protected by the Federal Confidentiality of Alcohol and Drug Abuse Patient Records regulations: The Federal rules restrict any use of the information to criminally investigate or prosecute any alcohol or drug abuse patient.[facility] CampusIn the event this information is protected by the Federal Confidentiality of Alcohol and Drug Abuse Patient Records regulations: The Federal rules restrict any use of the information to criminally investigate or prosecute any alcohol or drug abuse patient.[facility] CampusIn the event this information is protected by the Federal Confidentiality of Alcohol and Drug Abuse Patient Records regulations: The Federal rules restrict any use of the information to criminally investigate or prosecute any alcohol or drug abuse patient.[facility] CampusIn the event this information is protected by the Federal Confidentiality of Alcohol and Drug Abuse Patient Records regulations: The Federal rules restrict any use of the information to criminally investigate or prosecute any alcohol or drug abuse patient.[facility] CampusIn the event this information is protected by the Federal Confidentiality of Alcohol and Drug Abuse Patient Records regulations: The Federal rules restrict any use of the information to criminally investigate or prosecute any alcohol or drug abuse patient.[facility] CampusIn the event this information is protected by the Federal Confidentiality of Alcohol and Drug Abuse Patient Records regulations: The Federal rules restrict any use of the information to criminally investigate or prosecute any alcohol or drug abuse patient.[facility] CampusIn the event this information is protected by the Federal Confidentiality of Alcohol and Drug Abuse Patient Records regulations: The Federal rules restrict any use of the information to criminally investigate or prosecute any alcohol or drug abuse patient.[facility] Reason for Visit (unrecogniz ed section and content) Reason Comments Established Patient Specialty Diagnoses / Procedures Referred By Contac t Referred To Contact Diagnoses Prostate cancer (HCC) Procedures LEUPROLIDE [place] [address] [id number] [facility] [address] [place] [address] Referral ID Status Reason Start Date Expiration Date V isits Requested Visits Authorized [id number] Authorized 08/11/2022 11/08/2023 4 5 Reason Comments Injections Reason Onset Date Comments Refill Request 02/28/2022 Reason Comments Results Specialty Diagnoses / Procedures Referred By Contac t Referred To Contact CT IMAGING Diagnoses Prostate cancer (HCC) Procedures CT PELVIS W IVCON CT PELVIS W/CONTRAST MATERIAL Vazquez Page, DO [address] [place] [address] Ct Imaging Referral ID Status Reason Start Date Expiration Date V isits Requested Visits Authorized [id number] Closed Auto-Generate d Referral 05/19/2022 06/18/2023 1 1 Reason Comments Follow Up scans Reason Comments Prostate Cancer Specialty Diagnoses / Procedures Referred By Contac t Referred To Contact Radiation Oncology Diagnoses Prostate cancer (HCC) Procedures RAD/ONC CONSULT OFFICE/OUTPATIENT [facility] 60-74 MINUTES Vazquez Page, DO [address] [place] [address] [place] [address] [place] [address] Referral ID Status Reason Start Date Expiration Date V isits Requested Visits Authorized [id number] Closed PCP Requested Referral 06/19/2022 06/19/2023 1 1 Reason Onset Date Comments Refill Request 07/14/2022 Reason Comments Consult Reason Comments Established Patient Follow up to prostat e MRI Reason Comments Imm/Inj Referral ID Status Reason Start Date Expiration Date V isits Requested Visits Authorized [id number] Authorized 08/11/2022 09/27/2022 99 99 Reason Comments Injections Reason Comments Benefits Investigation Reason Comments Med Change Request Reason Comments Radiotherapy On-treatment Visit Reason Comments Refill Request Reason Comments Established Patient Knee Pain Injections Reason Comments New Pain Reason Comments Established Patient Pain Specialty Diagnoses / Procedures Referred By Contac t Referred To Contact Rheumatology Diagnoses Arthritis Procedures CONSULT TO RHEUM/IMMUN DISEASE OFFICE/OUTPATIENT [facility] 60-[place] [address] [place] [address] Referral ID Status Reason Start Date Expiration Date V isits Requested Visits Authorized [id number] Closed PCP Requested Referral 07/21/2023 07/20/2024 1 1 Reason Comments Appointment Reason Comments Results Reason Comments Orders Specialty Diagnoses / Procedures Referred By Contac t Referred To Contact Urology Diagnoses Prostate cancer (HCC) Bladder neck obstruction Procedures CONSULT TO UROLOGY OFFICE/OUTPATIENT [facility] 60 [place] [address] [place] [id number] Referral ID Status Reason Start Date Expiration Date V isits Requested Visits Authorized [id number] Closed PCP Requested Referral 12/17/2023 12/16/2024 1 [...] W/O & W/[place] [address] [place] [address] Mr Imaging [place] [address] Referral ID Status Reason Start Date Expiration Date V isits Requested Visits Authorized [id number] Closed Auto-Generate d Referral 01/12/2024 02/11/2024 2 1 Reason Comments Established Patient Post Op Reason Comments Radio Gen RMP Specialty Diagnoses / Procedures Referred By Contac t Referred To Contact XR IMAGING Diagnoses Pain Procedures XR SHOULDER GENERAL 3V OR MORE AP/TRUE AP/OTHER RIGHT RADEX SHOULDER COMPLETE MINIMUM 2 VIEWS Flynn Julian, PA-C [address] [facility] Referral ID Status Reason Start Date Expiration Date V isits Requested Visits Authorized [id number] Closed Auto-Generate d Referral 09/11/2022 10/11/2023 1 [...] HAND MINIMUM 3 [place] [address] [place] [address] [place] [address] Referral ID Status Reason Start Date Expiration Date V isits Requested Visits Authorized [id number] Closed Auto-Generate d Referral 08/02/2024 09/01/2025 1 1 Reason Comments Established Patient Pain Injections Reason Comments Knee Pain Established Patient Reason Comments New Reason Comments Radiology XR Specialty Diagnoses / Procedures Referred By Traci t Referred To Contact XR IMAGING Diagnoses Left hip pain Procedures XR LEG FRONTAL HIP TO ANKLE MECHANICAL AXIS BONE LENGTH STUDIES Mayra Buenrostro PA-C [address] [address] Phone: tel: fax: [place] [address] Referral ID Status Reason Start Date Expiration Date V isits Requested Visits Authorized [id number] Closed Auto-Generate d Referral 04/18/2025 05/18/2026 1 1 Care Teams (unrecognized sec tion and content) Resp Ther Relationship Specialty Start Date End Date Norma Davies, ROGUER.AUTOMOTIVE ACCESSORY INSTALLER [address] [place] [address] PCP - General Family Practice 08/03/13 Christy Sierra MD [address] [place], [place] [id number] Primary Staff Physician Cardiology 12/14/18 Resp Ther Relationship Specialty Start Date End Date Norma Davies, ROGUER.AUTOMOTIVE ACCESSORY INSTALLER [address] [place] [address] [phone] PCP - General Family Practice 08/03/13 Christy Sierra MD [address] [place], [place] [phone] Primary Staff Physician Cardiology 12/14/18 Resp Ther Relationship Specialty Start Date End Date Norma Davies, ROGUER.AUTOMOTIVE ACCESSORY INSTALLER [address] [place] [address] [phone] PCP - General Family Practice 08/03/13 Christy Sierra MD [address] [place] [address] Primary Staff Physician Cardiology 12/14/18 Resp Ther Relationship Specialty Start Date End Date Norma Davies, ROGUER.AUTOMOTIVE ACCESSORY INSTALLER [address] [place], [place] [phone] PCP - General Family Practice 08/03/13 Christy Sierra MD [address] [place] [address] Primary Staff Physician Cardiology 12/14/18 Resp Ther Relationship Specialty Start Date End Date Norma Davies, ROGUER.AUTOMOTIVE ACCESSORY INSTALLER [address] [place] [address] PCP - General Family Practice 08/03/13 Christy Sierra MD [address] [place] [address] Primary Staff Physician Cardiology 12/14/18 Resp Ther Relationship Specialty Start Date End Date Norma Davies, ROGUER.AUTOMOTIVE ACCESSORY INSTALLER [address] [place] [address] PCP - General Family Practice 08/03/13 Christy Sierra MD [address] [place] [address] Primary Staff Physician Cardiology 12/14/18 Resp Ther Relationship Specialty Start Date End Date Norma Davies, ROGUER.AUTOMOTIVE ACCESSORY INSTALLER [address] [place], [place] [phone] PCP - General Family Practice 08/03/13 Christy Sierra MD [address] [place] [address] Primary Staff Physician Cardiology 12/14/18 Resp Ther Relationship Specialty Start Date End Date Norma Davies, ROGUER.AUTOMOTIVE ACCESSORY INSTALLER [address] [place], [place] [phone] PCP - General Family Practice 08/03/13 Christy Sierra MD [address] [place], [place] [phone] Primary Staff Physician Cardiology 12/14/18 Resp Ther Relationship Specialty Start Date End Date Norma Davies, ROGUER.AUTOMOTIVE ACCESSORY INSTALLER [address] [place], [place] [phone] PCP - General Family Practice 08/03/13 Christy Sierra MD [address] [place] [address] [phone] Primary Staff Physician Cardiology 12/14/18 Resp Ther Relationship Specialty Start Date End Date Norma Davies, ROGUER.AUTOMOTIVE ACCESSORY INSTALLER [address] [place], [place] [phone] PCP - General Family Medicine 08/03/13 Christy Sierra MD [facility] [place] [address] Primary Staff Physician Cardiology 12/14/18 Resp Ther Relationship Specialty Start Date End Date Norma Davies, ROGUER.AUTOMOTIVE ACCESSORY INSTALLER [address] [place] [address] PCP - General Family Medicine 08/03/13 Christy Sierra MD [address] [place] [address] Primary Staff Physician Cardiology 12/14/18 [place] [address] [place], [place] [phone] Radiation Oncology 06/23/22 Resp Ther Relationship Specialty Start Date End Date Norma Davies, ROGUER.AUTOMOTIVE ACCESSORY INSTALLER [address] [phone] PCP - General Family Medicine 08/03/13 Christy Sierra MD [address] [place] [address] Primary Staff Physician Cardiology 12/14/18 [place] [address] [place] [address] Radiation Oncology 06/23/22 Resp Ther Relationship Specialty Start Date End Date Norma Davies, ROGUER.AUTOMOTIVE ACCESSORY INSTALLER PCP - General Family Medicine 08/03/13 Christy Sierra MD [address] [place] [address] Primary Staff Physician Cardiology 12/14/18 [place] [address] [place] [address] Radiation Oncology 06/23/22 Resp Ther Relationship Specialty Start Date End Date Norma Davies, ROGUER.AUTOMOTIVE ACCESSORY INSTALLER PCP - General Family Medicine 08/03/13 Christy Sierra MD [address] [place] [address] Primary Staff Physician Cardiology 12/14/18 [place] [address] [place] [address] Radiation Oncology 06/23/22 Resp Ther Relationship Specialty Start Date End Date Norma Davies, ROGUER.AUTOMOTIVE ACCESSORY INSTALLER PCP - General Family Medicine 08/03/13 Christy Sierra MD [address] [place] [address] Primary Staff Physician Cardiology 12/14/18 [place] [address] [place] [address] Radiation Oncology 06/23/22 Resp Ther Relationship Specialty Start Date End Date Norma Davies, ROGUER.AUTOMOTIVE ACCESSORY INSTALLER PCP - General Family Medicine 08/03/13 Christy Sierra MD [address] [place] [address] Primary Staff Physician Cardiology 12/14/18 [place] [address] [place] [address] Radiation Oncology 06/23/22 Resp Ther Relationship Specialty Start Date End Date Norma Davies, ROGUER.AUTOMOTIVE ACCESSORY INSTALLER [address] [place] [address] PCP - General Family Medicine 08/03/13 Christy Sierra MD [address] [place] [address] Primary Staff Physician Cardiology 12/14/18 [place] [address] [place] [address] Radiation Oncology 06/23/22 Resp Ther Relationship Specialty Start Date End Date Norma Davies, ROGUER.AUTOMOTIVE ACCESSORY INSTALLER [address] [place] [address] [phone] PCP - General Family Medicine 08/03/13 Christy Sierra MD [address] [place] [address] Primary Staff Physician Cardiology 12/14/18 [place] [address] [place] [address] Radiation Oncology 06/23/22 Resp Ther Relationship Specialty Start Date End Date Norma Davies, ROGUER.AUTOMOTIVE ACCESSORY INSTALLER [address] [place], [place] [phone] PCP - General Family Medicine 08/03/13 Christy Sierra MD [address] [place] [address] Primary Staff Physician Cardiology 12/14/18 [place] [address] [place] [address] Radiation Oncology 06/23/22 Resp Ther Relationship Specialty Start Date End Date Norma Davies, ROGUER.AUTOMOTIVE ACCESSORY INSTALLER [address] [place], [place] [phone] PCP - General Family Medicine 08/03/13 Christy Sierra MD [address] [place] [address] Primary Staff Physician Cardiology 12/14/18 [place] [address] [place] [address] Radiation Oncology 06/23/22 Resp Ther Relationship Specialty Start Date End Date Norma Davies, ROGUER.AUTOMOTIVE ACCESSORY INSTALLER [address] [place], [place] [phone] PCP - General Family Medicine 08/03/13 Christy Sierra MD [address] [place] [address] Primary Staff Physician Cardiology 12/14/18 [place] [address] [place] [address] Radiation Oncology 06/23/22 Rohini Cody LISW [address] [place] [address] Bead Trimmer Oncology 11/07/22 Resp Ther Relationship Specialty Start Date End Date Norma Davies, ROGUER.AUTOMOTIVE ACCESSORY INSTALLER [address] [place], [place] [phone] PCP - General Family Medicine 08/03/13 Christy Sierra MD [address] [place] [address] Primary Staff Physician Cardiology 12/14/18 [place] [address] [place] [address] Radiation Oncology 06/23/22 Rohini Cody LISW [address] [place] [address] Bead Trimmer Oncology 11/07/22 Resp Ther Relationship Specialty Start Date End Date Norma Davies, ROGUER.AUTOMOTIVE ACCESSORY INSTALLER [address] [place] [address] PCP - General Family Medicine 08/03/13 Christy Sierra MD [address] [place] [address] Primary Staff Physician Cardiology 12/14/18 [place] [address] [place] [address] Radiation Oncology 06/23/22 Rohini Cody LISW [address] [place] [address] Bead Trimmer Oncology 11/07/22 Resp Ther Relationship Specialty Start Date End Date Norma Davies, ROGUER.AUTOMOTIVE ACCESSORY INSTALLER [address] [place], [place] [phone] PCP - General Family Medicine 08/03/13 [place] [address] [place] [address] Primary Staff Physician Cardiology 12/14/18 [place] [address] [place] [address] Radiation Oncology 06/23/22 Rohini Cody LISW [address] [place] [address] Bead Trimmer Oncology 11/07/22 Resp Ther Relationship Specialty Start Date End Date Norma Davies, ROGUER.AUTOMOTIVE ACCESSORY INSTALLER [address] [place] [address] PCP - General Family Medicine 08/03/13 Christy Sierra MD [address] [place] [address] Primary Staff Physician Cardiology 12/14/18 [place] [address] [place] [address] Radiation Oncology 06/23/22 Rohini Cody LISW [address] [place] [address] Bead Trimmer Oncology 11/07/22 Resp Ther Relationship Specialty Start Date End Date Norma Davies, ROGUER.AUTOMOTIVE ACCESSORY INSTALLER [address] [place], [place] [phone] PCP - General Family Medicine 08/03/13 Christy Sierra MD [address] [place] [address] Primary Staff Physician Cardiology 12/14/18 [place] [address] [place] [address] Radiation Oncology 06/23/22 Rohini Cody LISW [address] [place] [address] Bead Trimmer Oncology 11/07/22 Resp Ther Relationship Specialty Start Date End Date Norma Davies, ROGUER.AUTOMOTIVE ACCESSORY INSTALLER [address] [facility] [address] [place] [address] [phone] PCP - General Family Medicine 08/03/13 Christy Sierra MD [address] [place] [address] Primary Staff Physician Cardiology 12/14/18 [place] [address] [place] [address] Radiation Oncology 06/23/22 Rohini Cody LISW [address] [place] [address] Bead Trimmer Oncology 11/07/22 Resp Ther Relationship Specialty Start Date End Date Norma Davies, ROGUER.AUTOMOTIVE ACCESSORY INSTALLER [address] [facility] [address] [place], [place] [phone] PCP - General Family Medicine 08/03/13 Christy Sierra MD [address] [place] [address] Primary Staff Physician Cardiology 12/14/18 [place] [address] [place] [address] Radiation Oncology 06/23/22 Rohini Cody LISW [address] [place] [address] Bead Trimmer Oncology 11/07/22 Resp Ther Relationship Specialty Start Date End Date Norma Davies, ROGUER.AUTOMOTIVE ACCESSORY INSTALLER [address] [place] [address] PCP - General Family Medicine 08/03/13 Christy Sierra MD [address] [place] [address] Primary Staff Physician Cardiology 12/14/18 [place] [address] [place] [address] Radiation Oncology 06/23/22 Rohini Cody LISW [address] [place] [address] Bead Trimmer Oncology 11/07/22 Resp Ther Relationship Specialty Start Date End Date Norma Davies, ROGUER.AUTOMOTIVE ACCESSORY INSTALLER [address] [place] [address] PCP - General Family Medicine 08/03/13 Christy Sierra MD [address] [place] [address] Primary Staff Physician Cardiology 12/14/18 [place] [address] [place] [address] Radiation Oncology 06/23/22 Rohini Cody LISW [address] [place] [address] Bead Trimmer Oncology 11/07/22 Resp Ther Relationship Specialty Start Date End Date Norma Davies, ROGUER.AUTOMOTIVE ACCESSORY INSTALLER [address] [place] [address] PCP - General Family Medicine 08/03/13 Christy Sierra MD [address] [place], [place] [id number] Primary Staff Physician Cardiology 12/14/18 [place] [address] [place] [address] Radiation Oncology 06/23/[address] [facility] [address] [place] [address] Bead Trimmer Oncology 11/07/22 Resp Ther Relationship Specialty Start Date End Date Norma Davies, ROGUER.AUTOMOTIVE ACCESSORY INSTALLER [address] [facility] [address] [place] [address] [phone] PCP - General Family Medicine 08/03/13 Christy Sierra MD [address] [place] [address] Primary Staff Physician Cardiology 12/14/18 [place] [address] [place] [address] Radiation Oncology 06/23/22 Rohini Cody [facility] [address] [place] [address] Bead Trimmer Oncology 11/07/22 Resp Ther Relationship Specialty Start Date End Date Norma Davies, ROGUER.AUTOMOTIVE ACCESSORY INSTALLER [address] [place], [place] [id number] PCP - General Family Medicine 08/03/13 Christy Sierra MD [address] [place] [address] Primary Staff Physician Cardiology 12/14/18 [place] [address] [place] [address] Radiation Oncology 06/23/22 Rohini Cody LISW [address] [place] [address] Bead Trimmer Oncology 11/07/22 Resp Ther Relationship Specialty Start Date End Date Norma Davies, ROGUER.AUTOMOTIVE ACCESSORY INSTALLER [address] [place] [address] PCP - General Family Medicine 08/03/13 Christy Sierra MD [address] [place] [address] Primary Staff Physician Cardiology 12/14/18 [place] [address] [place] [address] Radiation Oncology 06/23/22 Rohini Cody LISW [address] [place] [address] Bead Trimmer Oncology 11/07/22 Resp Ther Relationship Specialty Start Date End Date Norma Davies, ROGUER.AUTOMOTIVE ACCESSORY INSTALLER [address] [place] [address] PCP - General Family Medicine 08/03/13 Christy Sierra MD [address] [place] [address] Primary Staff Physician Cardiology 12/14/18 [place] [address] [place] [address] Radiation Oncology 06/23/22 Rohini Cody LISW [address] [place] [address] Bead Trimmer Oncology 11/07/22 Resp Ther Relationship Specialty Start Date End Date Norma Davies, ROGUER.AUTOMOTIVE ACCESSORY INSTALLER [address] [place], [place] [id number] PCP - General Family Medicine 08/03/13 [place] [address] [place] [address] [phone] Primary Staff Physician Cardiology 12/14/18 [place] [address] [place] [address] Radiation Oncology 06/23/22 Rohini Cody LISW 16[address] [place] [address] Bead Trimmer Oncology 11/07/22 Team Status: Active Member Role Status Dates Dr. Rodger Nassar MD Family Provider Active Norma Davies TITLE SUPERVISOR, TITLE SUPERVISOR-C Primary Care Provider Active Team Status: Inactive Member Role Status Dates Norma Davies TITLE SUPERVISOR, TITLE SUPERVISOR-C Primary Care Pr ovider, Attending Provider, Referring Provider Active Team Status: Inactive Member Role Status Dates Norma Davies TITLE SUPERVISOR, TITLE SUPERVISOR-C Primary Care Provider, Attend ing Provider Active Resp Ther Relationship Specialty Start Date End Date Norma Davies, ROGUER.AUTOMOTIVE ACCESSORY INSTALLER [address] [address] PCP - General Family Medicine 08/03/13 [place] [address] [place] [address] Primary Staff Physician Cardiology 12/14/18 [place] [address] [place] [address] Radiation Oncology 06/23/22 Rohini Cody LISW [address] [place] [address] Bead Trimmer Oncology 11/07/22 Resp Ther Relationship Specialty Start Date End Date Norma Davies, ROGUER.AUTOMOTIVE ACCESSORY INSTALLER [address] [place], [place] [phone] PCP - General Family Medicine 08/03/13 Christy Sierra MD [address] [place], [place] [id number] Primary Staff Physician Cardiology 12/14/18 [place] [address] [place] [address] Radiation Oncology 06/23/22 Rohini Cody LISW [address] [place] [address] Bead Trimmer Oncology 11/07/22 Resp Ther Relationship Specialty Start Date End Date Norma Davies, ROGUER.AUTOMOTIVE ACCESSORY INSTALLER [address] [place] [address] PCP - General Family Medicine 08/03/13 Christy Sierra MD [address] [place] [address] Primary Staff Physician Cardiology 12/14/18 [place] [address] [place] [address] Radiation Oncology 06/23/22 Rohini Cody LISW [address] [place] [address] Bead Trimmer Oncology 11/07/22 Resp Ther Relationship Specialty Start Date End Date Norma Davies, ROGUER.AUTOMOTIVE ACCESSORY INSTALLER [address] [place], [place] [phone] PCP - General Family Medicine 08/03/13 Christy Sierra MD [address] [place] [address] Primary Staff Physician Cardiology 12/14/18 [place] [address] [place] [address] Radiation Oncology 06/23/22 Rohini Cody LISW [address] [place] [address] Bead Trimmer Oncology 11/07/22 Resp Ther Relationship Specialty Start Date End Date Norma Davies, ROGUER.AUTOMOTIVE ACCESSORY INSTALLER [address] [facility] [address] [place] [address] [phone] PCP - General Family Medicine 08/03/13 Christy Sierra MD [address] [place] [address] Primary Staff Physician Cardiology 12/14/18 [place] [address] [place] [address] Radiation Oncology 06/23/22 Rohini Cody LISW [address] [place] [address] Bead Trimmer Oncology 11/07/22 Resp Ther Relationship Specialty Start Date End Date Norma Davies, ROGUER.AUTOMOTIVE ACCESSORY INSTALLER [address] [facility] [address] [place], [place] [phone] PCP - General Family Medicine 08/03/13 Christy Sierra MD [address] [place] [address] Primary Staff Physician Cardiology 12/14/18 [place] [address] [place] [address] Radiation Oncology 06/23/22 Rohini Cody LISW [address] [place] [address] Bead Trimmer Oncology 11/07/22 Resp Ther Relationship Specialty Start Date End Date Norma Davies, ROGUER.AUTOMOTIVE ACCESSORY INSTALLER [address] [place], [place] [id number] PCP - General Family Medicine 08/03/13 Christy Sierra MD [facility] [place] [id number] Primary Staff Physician Cardiology 12/14/18 [place] [address] [place] [address] Radiation Oncology 06/23/22 Rohini Cody LISW [address] [place] [address] Bead Trimmer Oncology 11/07/22 Resp Ther Relationship Specialty Start Date End Date Norma Davies, ROGUER.AUTOMOTIVE ACCESSORY INSTALLER [address] [place] [address] PCP - General Family Medicine 08/03/13 Christy Sierra MD [address] [place], [place] [id number] Primary Staff Physician Cardiology 12/14/18 [place] [address] [place] [address] Radiation Oncology 06/23/22 Rohini Cody LISW [address] [place] [address] Bead Trimmer Oncology 11/07/22 Resp Ther Relationship Specialty Start Date End Date Norma Davies, ROGUER.AUTOMOTIVE ACCESSORY INSTALLER [address] [facility] [address] [place], [place] [phone] PCP - General Family Medicine 08/03/13 Christy Sierra MD [address] [place] [address] [phone] Primary Staff Physician Cardiology 12/14/18 [place] [address] [place] [address] Radiation Oncology 06/23/22 Rohini Cody LISW [address] [place] [address] Bead Trimmer Oncology 11/07/22 Resp Ther Relationship Specialty Start Date End Date Norma Davies, ROGUER.AUTOMOTIVE ACCESSORY INSTALLER [address] [facility] [address] [place] [address] PCP - General Family Medicine 08/03/13 Christy Sierra MD [address] [place] [address] Primary Staff Physician Cardiology 12/14/18 [place] [address] [place] [address] Radiation Oncology 06/23/22 Rohini Cody LISW [address] [place] [address] Bead Trimmer Oncology 11/07/22 Resp Ther Relationship Specialty Start Date End Date Norma Davies, ROGUER.AUTOMOTIVE ACCESSORY INSTALLER [address] [place], [place] [phone] PCP - General Family Medicine 08/03/13 Christy Sierra MD [address] [place], [place] 1155795 Primary Staff Physician Cardiology 12/14/18 [place] [address] [place] [address] Radiation Oncology 06/23/22 Rohini Cody LISW [address] [place] [address] Bead Trimmer Oncology 11/07/22 Resp Ther Relationship Specialty Start Date End Date Norma Davies, ROGUER.AUTOMOTIVE ACCESSORY INSTALLER [address] [place] [address] PCP - General Family Medicine 08/03/13 Christy Sierra MD [address] [place], [place] [id number] Primary Staff Physician Cardiology 12/14/18 [place] [address] [place] [address] Radiation Oncology 06/23/22 Rohini Cody LISW [address] [place] [address] Bead Trimmer Oncology 11/07/22 Resp Ther Relationship Specialty Start Date End Date Norma Davies, ROGUER.AUTOMOTIVE ACCESSORY INSTALLER [address] [place], [place] [phone] PCP - General Family Medicine 08/03/13 Christy Sierra MD [address] [place] [address] Primary Staff Physician Cardiology 12/14/18 [place] [address] [place] [address] Radiation Oncology 06/23/22 Rohini Cody LISW [address] [place] [address] Bead Trimmer Oncology 11/07/22 Resp Ther Relationship Specialty Start Date End Date Norma Davies, ROGUER.AUTOMOTIVE ACCESSORY INSTALLER [address] [place], [place] [phone] PCP - General Family Medicine 08/03/13 Christy Sierra MD [address] [place] [address] Primary Staff Physician Cardiology 12/14/18 [place] [address] [place] [address] Radiation Oncology 06/23/22 Rohini Cody LISW [address] [place] [address] Bead Trimmer Oncology 11/07/22 Resp Ther Relationship Specialty Start Date End Date Norma Davies, ROGUER.AUTOMOTIVE ACCESSORY INSTALLER [address] [place], [place] [phone] PCP - General Family Medicine 08/03/13 Christy Sierra MD [address] [place], [place] 7932295 Primary Staff Physician Cardiology 12/14/18 [place] [address] [place] [address] Radiation Oncology 06/23/22 Glo CLARITA [place] [address] [place] [address] Bead Trimmer Oncology 11/07/22 Resp Ther Relationship Specialty Start Date End Date Norma Davies, ROGUER.AUTOMOTIVE ACCESSORY INSTALLER [address] [place] [address] [phone] PCP - General Family Medicine 08/03/13 [place] [address] [place] [address] Primary Staff Physician Cardiology 12/14/18 [place] [address] [place] [address] Radiation Oncology 06/23/22 Syedmerissa Rohini CLARITA [address] [place] [address] Bead Trimmer Oncology 11/07/22 Resp Ther Relationship Specialty Start Date End Date Norma Davies, ROGUER.AUTOMOTIVE ACCESSORY INSTALLER [address] [place] [address] PCP - General Family Medicine 08/03/13 Christy Sierra MD [address] [place] [address] Primary Staff Physician Cardiology 12/14/18 [place] [address] [place] [address] Radiation Oncology 06/23/22 Rohini Cody LISW [address] [place] [address] Bead Trimmer Oncology 11/07/22 Resp Ther Relationship Specialty Start Date End Date Norma Davies, ROGUER.AUTOMOTIVE ACCESSORY INSTALLER [address] [phone] PCP - General Family Medicine 08/03/13 Christy Sierra MD [address] [place] [address] [phone] Primary Staff Physician Cardiology 12/14/18 [place] [address] [place] [id number] Radiation Oncology 06/23/22 Rohini Cody LISW [address] [place] [address] Bead Trimmer Oncology 11/07/22 Resp Ther Relationship Specialty Start Date End Date Norma Davies, ROGUER.AUTOMOTIVE ACCESSORY INSTALLER [address] [address] PCP - General Family Medicine 08/03/13 Christy Sierra MD [address] [place] [address] Primary Staff Physician Cardiology 12/14/18 [place] [address] [place] [address] Radiation Oncology 06/23/22 Rohini Cody LISW [address] [place] [address] Bead Trimmer Oncology 11/07/22 Resp Ther Relationship Specialty Start Date End Date Norma Davies, ROGUER.AUTOMOTIVE ACCESSORY INSTALLER [address] [place], [place] [phone] PCP - General Family Medicine 08/03/13 Christy Sierra MD [address] [place] [address] Primary Staff Physician Cardiology 12/14/18 [place] [address] [place] [address] Radiation Oncology 06/23/22 Rohini Cody LISW [address] [place] [address] Bead Trimmer Oncology 11/07/22 Resp Ther Relationship Specialty Start Date End Date Norma Davies, ROGUER.AUTOMOTIVE ACCESSORY INSTALLER [address] [place] [address] PCP - General Family Medicine 08/03/13 Christy Sierra MD [address] [place] [address] Primary Staff Physician Cardiology 12/14/18 [place] [address] [place] [address] Radiation Oncology 06/23/22 Resp Ther Relationship Specialty Start Date End Date Norma Davies, ROGUER.AUTOMOTIVE ACCESSORY INSTALLER [address] [place], [place] [phone] PCP - General Family Medicine 08/03/13 Christy Sierra MD [address] [place] [address] Primary Staff Physician Cardiology 12/14/18 [place] [address] [place] [address] Radiation Oncology 06/23/22 Rohini Cody LISW [address] [place] [address] Bead Trimmer Oncology 11/07/22 Resp Ther Relationship Specialty Start Date End Date Norma Davies, ROGUER.AUTOMOTIVE ACCESSORY INSTALLER [address] [place] [address] PCP - General Family Medicine 08/03/13 Christy Sierra MD [address] [place] [address] Primary Staff Physician Cardiology 12/14/18 [place] [address] [place] [address] Radiation Oncology 06/23/22 Rohini Cody LISW [address] [place] [address] Bead Trimmer Oncology 11/07/22 Resp Ther Relationship Specialty Start Date End Date Norma Davies, ROGUER.AUTOMOTIVE ACCESSORY INSTALLER [address] [place], [place] [phone] PCP - General Family Medicine 08/03/13 Christy Sierra MD [address] [place] [address] Primary Staff Physician Cardiology 12/14/18 [place] [address] [place] [address] Radiation Oncology 06/23/22 Terri Codynifer CLARITA [address] [place] [address] Bead Trimmer Oncology 11/07/22 Resp Ther Relationship Specialty Start Date End Date Norma Davies, ROGUER.AUTOMOTIVE ACCESSORY INSTALLER [address] [facility] [address] [place] [address] [phone] PCP - General Family Medicine 08/03/13 Christy Sierra MD [address] [place] [address] [phone] Primary Staff Physician Cardiology 12/14/18 [place] [address] [place] [address] Radiation Oncology 06/23/22 Rohini Cody LISW [address] [place] [address] Bead Trimmer Oncology 11/07/22 Resp Ther Relationship Specialty Start Date End Date Norma Davies, ROGUER.AUTOMOTIVE ACCESSORY INSTALLER [address] [facility] [address] [place] [address] PCP - General Family Medicine 08/03/13 Christy Sierra MD [address] [place] [address] [phone] Primary Staff Physician Cardiology 12/14/18 [place] [address] [place] [address] Radiation Oncology 06/23/22 Rohini Cody LISW [address] [place] [address] Bead Trimmer Oncology 11/07/22 Resp Ther Relationship Specialty Start Date End Date Norma Davies, ROGUER.AUTOMOTIVE ACCESSORY INSTALLER [address] [facility] [address] [place] [address] PCP - General Family Medicine 08/03/13 Christy Sierra MD [address] [place] [address] Primary Staff Physician Cardiology 12/14/18 [place] [address] [place] [address] Radiation Oncology 06/23/22 Rohini Cody LISW [address] [place] [address] Bead Trimmer Oncology 11/07/22 Resp Ther Relationship Specialty Start Date End Date Norma Davies, ROGUER.AUTOMOTIVE ACCESSORY INSTALLER [address] [address] PCP - General Family Medicine 08/03/13 Christy Sierra MD [address] [place] [address] Primary Staff Physician Cardiology 12/14/18 [place] [address] [place] [address] Radiation Oncology 06/23/22 Rohini Cody LISW [address] [place] [address] Bead Trimmer Oncology 11/07/22 Resp Ther Relationship Specialty Start Date End Date Norma Davies, ROGUER.AUTOMOTIVE ACCESSORY INSTALLER [address] [place], [place] [phone] PCP - General Family Medicine 08/03/13 Christy Sierra MD [address] [place], [place] 1982995 Primary Staff Physician Cardiology 12/14/18 [place] [address] [place] [address] Radiation Oncology 06/23/22 Rohini Cody LISW [address] [place] [address] Bead Trimmer Oncology 11/07/22 Resp Ther Relationship Specialty Start Date End Date Norma Davies, ROGUER.AUTOMOTIVE ACCESSORY INSTALLER [address] [place] [address] PCP - General Family Medicine 08/03/13 Christy Sierra MD [address] [place], [place] 7837695 Primary Staff Physician Cardiology 12/14/18 [place] [address] [place] [address] Radiation Oncology 06/23/22 Rohini Cody LISW [address] [place] [address] Bead Trimmer Oncology 11/07/22 Resp Ther Relationship Specialty Start Date End Date Norma Davies, ROGUER.AUTOMOTIVE ACCESSORY INSTALLER [address] [place], [place] [phone] PCP - General Family Medicine 08/03/13 Christy Sierra MD [address] [place] [address] Primary Staff Physician Cardiology 12/14/18 [place] [address] [place] [address] Radiation Oncology 06/23/22 Rohini Cody LISW [address] [place] [address] Bead Trimmer Oncology 11/07/22 Resp Ther Relationship Specialty Start Date End Date Norma Davies, ROGUER.AUTOMOTIVE ACCESSORY INSTALLER [address] [place] [address] [phone] PCP - General Family Medicine 08/03/13 Christy Sierra MD [address] [place] [address] Primary Staff Physician Cardiology 12/14/18 [place] [address] [place] [address] Radiation Oncology 06/23/22 Rohini Cody LISW [address] [place] [address] Bead Trimmer Oncology 11/07/22 Resp Ther Relationship Specialty Start Date End Date Norma Davies, ROGUER.AUTOMOTIVE ACCESSORY INSTALLER [address] [place], [place] [phone] PCP - General Family Medicine 08/03/13 Christy Sierra MD [address] [place], [place] 7377895 Primary Staff Physician Cardiology 12/14/18 [place] [address] [place] [address] Radiation Oncology 06/23/22 Syedmerissa CLARITA [place] [address] [place] [address] Bead Trimmer Oncology 11/07/22 Resp Ther Relationship Specialty Start Date End Date Norma Davies, ROGUER.AUTOMOTIVE ACCESSORY INSTALLER [address] [place], [place] [phone] PCP - General Family Medicine 08/03/13 Christy Sierra MD [address] [place] [phone] Primary Staff Physician Cardiology 12/14/18 [place] [address] [place] [address] Radiation Oncology 06/23/22 Syedmerissa Rohini CLARITA [address] [place] [address] Bead Trimmer Oncology 11/07/22 Resp Ther Relationship Specialty Start Date End Date Norma Davies, ROGUER.AUTOMOTIVE ACCESSORY INSTALLER [address] [place] [address] PCP - General Family Medicine 08/03/13 Christy Sierra MD [address] [place] [address] Primary Staff Physician Cardiology 12/14/18 [place] [address] [place] [address] Radiation Oncology 06/23/22 Rohini Cody LISW [address] [place] [address] Bead Trimmer Oncology 11/07/22 Resp Ther Relationship Specialty Start Date End Date Norma Davies, ROGUER.AUTOMOTIVE ACCESSORY INSTALLER [address] [facility] [address] [place] [address] PCP - General Family Medicine 08/03/13 [place] [address] [place] [address] Primary Staff Physician Cardiology 12/14/18 [place] [address] [place] [address] Radiation Oncology 06/23/22 Rohini Cody LISW [address] [place] [address] Bead Trimmer Oncology 11/07/22 Resp Ther Relationship Specialty Start Date End Date Norma Davies, ROGUER.AUTOMOTIVE ACCESSORY INSTALLER [address] [facility] [address] [place] [address] PCP - General Family Medicine 08/03/13 Christy Sierra MD [address] [place] [address] Primary Staff Physician Cardiology 12/14/18 [place] [address] [place] [address] Radiation Oncology 06/23/22 Rohini Cody LISW [address] [place] [address] Bead Trimmer Oncology 11/07/22 Resp Ther Relationship Specialty Start Date End Date Norma Davies, ROGUER.AUTOMOTIVE ACCESSORY INSTALLER [address] [place], [place] [phone] PCP - General Family Medicine 08/03/13 Christy Sierra MD [address] [place] [address] Primary Staff Physician Cardiology 12/14/18 [place] [address] [place] [address] Radiation Oncology 06/23/22 Rohini Cody LISW [address] [place] [address] Bead Trimmer Oncology 11/07/22 Resp Ther Relationship Specialty Start Date End Date Norma Davies, ROGUER.AUTOMOTIVE ACCESSORY INSTALLER [address] [place] [address] PCP - General Family Medicine 08/03/13 Christy Sierra MD [address] [place], [place] [id number] Primary Staff Physician Cardiology 12/14/18 [place] [address] [place] [address] Radiation Oncology 06/23/22 Rohini Cody LISW [address] [place] [address] Bead Trimmer Oncology 11/07/22 Resp Ther Relationship Specialty Start Date End Date Norma Davies, ROGUER.AUTOMOTIVE ACCESSORY INSTALLER [address] [place], [place] [phone] PCP - General Family Medicine 08/03/13 Christy Sierra MD [address] [place], [place] [phone] Primary Staff Physician Cardiology 12/14/18 [place] [address] [place] [address] Radiation Oncology 06/23/22 Rohini Cody LISW [address] [place] [address] Bead Trimmer Oncology 11/07/22 Team Status: Inactive Member Role Status Dates Norma Davies TITLE SUPERVISOR, TITLE SUPERVISOR-C Primary Care Provider Active Start: March 09, 2025 End: March 09, 2025 Norma Davies TITLE SUPERVISOR, TITLE SUPERVISOR-C Attending Provider Active Start: March 09, 2025 End: March 09, 2025 Norma Davies TITLE SUPERVISOR, TITLE SUPERVISOR-C Referring Provider Active Start: March 09, 2025 End: March 09, 2025 Resp Ther Relationship Specialty Start Date End Date Norma Davies, ROGUER.AUTOMOTIVE ACCESSORY INSTALLER [address] [address] PCP - General Family Medicine 08/03/13 Christy Sierra MD [facility] [place] [id number] Primary Staff Physician Cardiology 12/14/18 [place] [address] [place] [address] Radiation Oncology 06/23/22 Rohini Cody LISW [address] [place] [phone] Bead Trimmer Oncology 11/07/22 Goals (unrecognized section and content) Goals may be documented in a n alternate sectionGoals may be documented in an alternate sectionGoals may be documented in an alternate section (unrecognized sect ion and content) No Status Records FoundNo Status Records FoundNo Status Records FoundNo Status Records FoundNo Status Records Found INFORMATION SOURCE (unrecogn ized section and content) DATE CREATED AUTHOR 08/08/2022 [facility] DATE CREATED AUTHOR AUTHOR'S ORGANIZ ATION 02/21/2024 [facility] DATE CREATED AUTHOR AUTHOR'S ORGANIZ ATION 03/18/2025 [facility] DATE CREATED AUTHOR AUTHOR'S ORGANIZ ATION 04/22/2025 [facility] DATE CREATED AUTHOR AUTHOR'S ORGANIZ ATION 05/05/2025 [facility] FOR RECORDS PERTAINING TO PATIENTS WHO ARE [...] BE BASED ON THE PRIMARY CLINICAL RECORDS. [facility] [employer] provides no warranty or guarantee of the accuracy or completeness of information in this document.
[2025-05-08 22:52] LABS: Hematocrit 42.3 % (40-54); Hemoglobin 13.8 g/dL (13.0-16.5); Immature Granulocytes Count 0.040 X10^3/uL (0.0-0.0); Mean Corp Hgb Conc 32.6 g/dL (32-36); Mean Corpuscular Volume 96.8 fL (80-94); Mean Platelet Vol. 11.0 fl (6.2-12.0); NRBC Flagged by Analyzer 0 % (0-5); Platelet Count 132 K/mm3 (150-450); RBC Distribution Width CV 14.2 % (11.6-14.6); RBC Distribution Width SD 51.0 fl (35.1-43.9); Red Blood Count 4.37 M/mm3 (4.6-6.2); White Blood Count 7.4 K/mm3 (4.4-11.0)
[2025-05-08 23:47] LABS: AST(SGOT) 17 U/L (<=37); Alanine Aminotransfer ALT/SGPT 14 U/L (<=46); Albumin, Serum 4.4 g/dL (3.4-4.8); Alkaline Phosphatase 72 U/L (40-129); Anion Gap 13 (5-15); BUN 22 mg/dL (4-19); BUN/Creat Ratio 20.7 RATIO (10-20); Calcium,Total 9.8 mg/dL (7.6-11.0); Carbon Dioxide 23.6 mmol/L (21.0-32.0); Chloride 105 mmol/L (98-108); Globulin 2.6 g/dL (2.2-4.2); Glucose 100 mg/dL (70-99); Magnesium 2.3 mg/dL (1.5-2.2); Potassium 4.1 mmol/L (3.3-5.1)
== END | disposition home or self-care (01) ==
PROVIDERS: PCP Nurse Practitioner; Referring Provider Nurse Practitioner; Visit Provider Nurse Practitioner
DX: M62.838 Other muscle spasm (principal); R73.9 Hyperglycemia, unspecified
CPT/HCPCS: 80053; 83036; 83735; 85025